=== PATIENT | male | born 1940 ===

== ENCOUNTER 2016-07-15 14:41 | Inpatient (IN) | payer MEDICARE ==
[2016-07-15 15:58] LABS: BASO % 0.8 % (0.0-2.0); EOS # 0.3 K/uL (0.0-0.7); EOS % 4.8 % (0.0-4.0); HEMATOCRIT 21.2 % (35.0-51.0); LYMPH # 0.6 K/uL (1.0-4.3); LYMPH % 10.5 % (20.0-40.0); MEAN CELL VOLUME 92.8 fL (80.0-94.0); MEAN CORPUSCULAR HEMOGLOBIN 30.5 pg (27.0-31.0); MEAN CORPUSCULAR HGB CONC 32.9 g/dL (33.0-37.0); MEAN PLATELET VOLUME 7.5 fL (7.2-11.7); MONO # 0.6 K/uL (0.0-0.8); RED CELL DISTRIBUTION WIDTH 15.9 % (11.5-14.5); WHITE BLOOD COUNT 5.7 K/uL (4.8-10.8)
--- NOTE | 2016-07-15 16:05 | C.PDOC ---
History Of Present Illness 75 year old male presents to the ED after he was sent in by Dr. Comer for labs showing renal failure. Patient states for the past year he has had swelling to his bilateral feet, however it has worsened in the past 10 days. He notes he has an appointment with Dr. Kirk next week however Dr. Comer wanted him to be seen sooner due to the lab results. Denies SOB, chest pain, fever, chills , abdominal pain, calf pain, or any other complaints at this time. Chief Complaint (Nursing): Medical Clearance History Per: Patient History/Exam Limitations: no limitations Onset/Duration Of Symptoms: Days Current Symptoms Are (Timing): Still Present Severity: Mild Past Medical History Reviewed: Historical Data, Nursing Documentation, Vital Signs Vital Signs: Last Vital Signs Temp 97.3 F L 07/15/16 14:50 Pulse 99 H 07/15/16 15:53 Resp 20 07/15/16 15:53 BP 151/77 H 07/15/16 15:53 Pulse Ox 100 07/15/16 17:24 - Medical History PMH: HTN, Hyperlipidemia Family History: States: Unknown Family Hx - Social History Hx Alcohol Use: No Hx Substance Use: No - Immunization History Hx Tetanus Toxoid Vaccination: No Hx Influenza Vaccination: No Hx Pneumococcal Vaccination: No Review Of Systems Except As Marked, All Systems Reviewed And Found Negative. Constitutional: Negative for: Fever, Chills Cardiovascular: Negative for: Chest Pain, Palpitations Respiratory: Negative for: Shortness of Breath Gastrointestinal: Negative for: Vomiting, Abdominal Pain Musculoskeletal: Positive for: Other (+Bilateral leg swelling) Neurological: Negative for: Weakness, Numbness Physical Exam - Physical Exam Appears: Non-toxic, No Acute Distress Skin: Normal Color, Warm, Dry Head: Atraumatic, Normacephalic Eye(s): bilateral: Normal Inspection Oral Mucosa: Moist Chest: Symmetrical, No Deformity Cardiovascular: Rhythm Regular, No Murmur Respiratory: Decreased Breath Sounds (+Decreased breath sounds to bilateral bases), No Accessory Muscle Use, No Rales, No Rhonchi, No Wheezing Gastrointestinal/Abdominal: Soft Extremity: Normal ROM, Pedal Edema (3+ pitting edema), No Calf Tenderness, No Deformity Pulses: Left Dorsalis Pedis: Normal, Right Dorsalis Pedis: Normal Neurological/Psych: Oriented x3, Normal Speech, Normal Cognition ED Course And Treatment - Laboratory Results Result Diagrams: 07/15/16 15:53 07/15/16 15:53 O2 Sat by Pulse Oximetry: 100 (Room air) Pulse Ox Interpretation: Normal - CT Scan/US Renal US Other Rad Studies (CT/US): Read By Radiologist, Radiology Report Reviewed CT/US Interpretation: Accession No. : [id number]. Patient Name / ID : AMERICO KING / [id number]. Exam Date : 07/15/2016 16:26:51 ( Approved ). Study Comment : Sex / Age : M / 75Y. Creator : Monica Baltazar. Dictator : Monica Baltazar. Incident Analyst : Master Merchandiser : Monica Baltazar. Approver2 : Report Date : 07/15/2016 16:51:53. My Comment : . PROCEDURE: Ultrasound of the Kidneys. HISTORY: renal failure. COMPARISON: None available. TECHNIQUE: Sonogram of the kidneys. FINDINGS: RIGHT KIDNEY: Measures: 9.4 x 4.8 x 4.8 cm. The kidneys are echogenic. No stone, solid mass lesion or hydronephrosis visualized. LEFT KIDNEY: Measures: 11.2 x 6.1 x 5.4 cm. The kidneys are echogenic. No stone, solid mass lesion or hydronephrosis visualized. OTHER FINDINGS: None. IMPRESSION: Echogenic kidneys suggestive of medical renal disease. No evidence of hydronephrosis. Progress Note: CXR, EKG, Renal US, Blood work, and Urinalysis ordered and reviewed. Case discussed with Dr. Comer who agreed with plan and admission. Patient found to be severely anemic. Discussed with Dr. Comer who agreed with blood transfusion. Garay placed with 750 cc urine output. Disposition - Disposition Disposition: HOSPITALIZED Disposition Time: 17:22 Condition: GUARDED - Clinical Impression Clinical Impression: Acute renal failure, Obstructive uropathy, Hyperkalemia, Anemia - PA / STATEMENT REQUEST CLERK / Resident Statement /DO has reviewed & agrees with the documentation as recorded. - Scribe Statement The provider has reviewed the documentation as recorded by the Scribe Doron Braun. All medical record entries made by the Scribe were at my direction and personally dictated by me. I have reviewed the chart and agree that the record accurately reflects my personal performance of the history, physical exam, medical decision making, and the department course for this patient. I have also personally directed, reviewed, and agree with the discharge instructions and disposition. Decision To Admit - Pt Status Changed To: Hospital Disposition Of: Inpatient - Admit Certification Admit to Inpatient:: After my assessment, the patient will require hospitalization for at least two midnights. This is because of the severity of symptoms shown, intensity of services needed, and/or the medical risk in this patient being treated as an outpatient. - InPatient: Physician Admission Certification: I certify that this patient requires 2 or more midnights of care for the following reason:: Patient will need more than 2 days of hospitalization for acute renal failure, probably secondary to obstructive uropathy, hyperkalemia, severe anemia. - . Bed Request Type: Telemetry Admitting Physician: Rigo Comer Patient Diagnosis: Acute renal failure, Obstructive uropathy, Hyperkalemia, Anemia
--- NOTE | 2016-07-15 16:13 | RAD ---
PROCEDURE: CHEST RADIOGRAPH, 1 VIEW HISTORY: le edema COMPARISON: None available. FINDINGS: LUNGS: The lungs are well inflated and clear. PLEURA: No pneumothorax or pleural fluid seen. CARDIOVASCULAR: The heart is normal in size. Atherosclerotic aortic arch calcifications are present. . OSSEOUS STRUCTURES: No significant abnormalities. VISUALIZED UPPER ABDOMEN: Normal. OTHER FINDINGS: None. IMPRESSION: No active pulmonary disease.
[2016-07-15 16:14] LABS: CHLORIDE 104 mmol/L (98-107); SODIUM 136 mmol/L (132-148)
[2016-07-15 16:15] LABS: POTASSIUM 6.1 mmol/L (3.6-5.2)
[2016-07-15 16:17] LABS: ALB/GLOB RATIO 1.3 (1.0-2.1); ALKALINE PHOSPHATASE 58 U/L (38-126); ALT/SGPT 12 U/L (21-72); AST/SGOT 19 U/L (17-59); BILIRUBIN,TOTAL < 0.1 mg/dL (0.2-1.3); BLOOD UREA NITROGEN 36 mg/dL (9-20); CARBON DIOXIDE 14 mmol/L (22-30); GFR AFRICAN-AMERICAN 28; GLUCOSE,RANDOM 102 mg/dL (75-110); TOTAL PROTEIN 6.9 g/dL (6.3-8.3)
[2016-07-15 16:18] LABS: CALCIUM 8.7 mg/dl (8.6-10.4)
[2016-07-15] MEDS ORDERED: Sod Polystyrene Sulf 15 gm/60 ml Oral Susp PO STA (16:37)
[2016-07-15] MEDS ORDERED: Sod Polystyrene Sulf 15 gm/60 ml Oral Susp ONE (16:44)
--- NOTE | 2016-07-15 16:53 | US ---
PROCEDURE: Ultrasound of the Kidneys HISTORY: renal failure COMPARISON: None available. TECHNIQUE: Sonogram of the kidneys. FINDINGS: RIGHT KIDNEY: Measures: 9.4 x 4.8 x 4.8 cm. The kidneys are echogenic No stone, solid mass lesion or hydronephrosis visualized. LEFT KIDNEY: Measures: 11.2 x 6.1 x 5.4 cm. The kidneys are echogenic. No stone, solid mass lesion or hydronephrosis visualized. OTHER FINDINGS: None. IMPRESSION: Echogenic kidneys suggestive of medical renal disease. No evidence of hydronephrosis.
[2016-07-15 17:32] LABS: RBC URINE < 1 /hpf (0-3); URINE BACTERIA RARE (<OCC); URINE BILIRUBIN NEGATIVE (NEGATIVE); URINE BLOOD 1+ (NEGATIVE); URINE COLOR Straw (YELLOW); URINE GLUCOSE (UA) NORMAL (Normal); URINE KETONE NEGATIVE (NEGATIVE); URINE LEUKOCYTE ESTERASE NEG Leu/uL (Negative); URINE PROTEIN NEGATIVE (NEGATIVE); URINE UROBILINOGEN NORMAL mg/dL (0.2-1.0); WBC URINE 1 /hpf (0-5)
[2016-07-15 19:40] LABS: INR 0.9
--- NOTE | 2016-07-15 19:56 | HP ---
HISTORY OF PRESENT ILLNESS: This is a 75-year-old gentleman with a history of hypertension and diabe lory, was seen in the office with increasing shortness of breath and edema for past 2 months. About a week ago, patient went to see his primary doctor, Dr. Diego Gonzalez, and was found to have anemia with a hemoglobin of 7.1 grams and creatine jumped to 2.7. Metformin was discontinued and was referred he re. Over the past few days, he has increasing shortness of breath and edema. He is extremely fatigu ed. Going from bed to bathroom, he is out of breath. PERSONAL HISTORY: Does not smoke, does not drink. ALLERGIES: Denied. FAMILY HISTORY: His mother had a history of diabetes, hypertension and CVA. Brother had hypertrophi c cardiomyopathy. MEDICATIONS: At home include Cardizem 240, Flomax 0.4 mg, Lopid 600 mg b.i.d., Vasotec 10 mg 1 a day . REVIEW OF SYSTEMS: GENERAL: Poor exercise tolerance, severe fatigue. No headaches. Dizziness is noted. EYES: No visual disturbances. Has not seen eye doctor. EARS: No hearing loss. NECK: No swollen glands. RESPIRATORY: Negative for cough or hemoptysis. CARDIAC: No chest pains. Shortness of breath at rest and exertion. Increasing edema. History of h ypertension. No palpitations. Sleeps on 2-3 pillows. GASTROINTESTINAL: Negative for abdominal pain, hematemesis or melena. GENITOURINARY: Frequency is noted. He is on Flomax and Proscar. MUSCULOSKELETAL: Back pain, knee pain, and hip pain. PERIPHERAL VASCULAR: Negative for claudication. NEUROLOGIC: Positive for dizziness, but no syncope. PAST MEDICAL HISTORY: Hypertension, diabetes, had a negative Myoview stress test about a year ago an d an echocardiogram showed normal LV systolic function. PHYSICAL EXAMINATION: GENERAL: Shows elderly male who is conscious, alert, in mild respiratory distress and appears pale. He is 5 feet 6 inches and weighs 248 pounds. VITAL SIGNS: His blood pressure is 166/80, heart rate of 88, respiratory rate of 20, afebrile. HEENT: Head is normocephalic. Eyes: No pallor, no icterus. NECK: Supple, no neck vein distention. LUNGS: Clear to auscultation bilaterally. MOUTH: No exudates. HEART: PMI is not localized. S1, S2 is distant, tachycardic. No definite gallops. Grade II-III/ early systolic murmur in mitral area. EXTREMITIES: Shows 3+ edema from the knee down in both legs. Distal pulses could not be felt. ABDOMEN: Soft, nontender. EXTREMITIES: No cyanosis or clubbing. Arthritic changes in both knees. NEUROLOGIC: Awake, alert, oriented x 3. PSYCHIATRIC: No evidence of depression. LABORATORY DATA: Hemoglobin is 7.3, creatinine is 2.7. Chest x-ray was clear. EKG sinus tachycardi a, left axis deviation. ASSESSMENT: A 75-year-old gentleman with a history of probably acute renal failure. Also seems to h ave urinary retention. PLAN: Admit him, nephrology consultation and urology consultation. Care of plan was explained to th e patient's family at the bedside. Rigo Comer MD cc: [id number] TT: 07/15/2016 19:55:19 rn
[2016-07-15] MEDS ORDERED: (Novolin R) Insulin Human Regular 100 units/ml vial SC SCH (22:00)
[2016-07-16 08:07] LABS: POTASSIUM 4.8 mmol/L (3.6-5.2)
[2016-07-16 08:09] LABS: BILIRUBIN,TOTAL 0.1 mg/dL (0.2-1.3)
[2016-07-16 08:10] LABS: ALB/GLOB RATIO 1.3 (1.0-2.1); CALCIUM 8.5 mg/dl (8.6-10.4); TOTAL PROTEIN 6.3 g/dL (6.3-8.3)
[2016-07-16] MEDS: diltiaZEM 240 mg/24 Hours CD Cap PO SCH (09:33)
[2016-07-16] MEDS: (Novolin R) Insulin Human Regular 100 units/ml vial SC SCH ×4 (09:34→22:34)
[2016-07-16 12:21] LABS: EOS # 0.3 K/uL (0.0-0.7); EOS % 6.6 % (0.0-4.0); LYMPH # 0.9 K/uL (1.0-4.3); LYMPH % 19.3 % (20.0-40.0); MEAN CORPUSCULAR HGB CONC 31.9 g/dL (33.0-37.0); MONO # 0.7 K/uL (0.0-0.8); MONO % 13.8 % (0.0-10.0); RED CELL DISTRIBUTION WIDTH 15.9 % (11.5-14.5); WHITE BLOOD COUNT 4.9 K/uL (4.8-10.8)
--- NOTE | 2016-07-16 13:12 | CP.PCM.PN ---
Subjective - Date & Time of Evaluation Date of Evaluation: 07/16/16 Time of Evaluation: 13:10 - Subjective Subjective: better.less sob Objective - Vital Signs/Intake and Output Vital Signs (last 24 hours): Temp Pulse Resp BP Pulse Ox 97.8 F 94 H 18 157/80 H 98 07/16/16 07:02 07/16/16 07:02 07/16/16 07:02 07/16/16 09:35 07/16/16 07:02 Intake and Output: 07/16/16 07/16/16 06:59 18:59 Intake Total 240 Output Total 300 Balance -60 - Medications Medications: Current Medications Diltiazem HCl (Cardizem Cd) 240 mg PO DAILY [facility] Last Admin: 07/16/16 09:33 Dose: 240 mg Finasteride (Proscar) 5 mg PO DAILY [facility] Last Admin: 07/16/16 12:37 Dose: 5 mg Heparin Sodium (Porcine) (Heparin) 5,000 units SC Q12 [facility] Influenza Virus Vaccine (Afluria) 45 mcg IM .ONCE ONE Stop: 07/17/16 10:01 Insulin Human Regular (Novolin R) 0 unit SC [facility] PRN Reason: Protocol Last Admin: 07/16/16 12:36 Dose: Not Given Pneumococcal Polyvalent Vaccine (Pneumovax 23 Vaccine) 0.5 ml IM .ONCE ONE Stop: 07/18/16 10:01 Tamsulosin HCl (Flomax) 0.4 mg PO DAILY [facility] Last Admin: 07/16/16 09:32 Dose: 0.4 mg - Labs Labs: 07/16/16 12:01 07/16/16 06:30 PT 10.2 SECONDS (9.7-12.2) 07/15/16 19:18 INR 0.9 07/15/16 19:18 APTT 30 SECONDS (21-34) 07/15/16 19:18 - Constitutional Appears: No Acute Distress, Chronically Ill - Eye Exam Eye Exam: Normal appearance - ENT Exam ENT Exam: Normal Exam - Respiratory Exam Respiratory Exam: Clear to Ausculation Bilateral - Cardiovascular Exam Cardiovascular Exam: REGULAR RHYTHM - GI/Abdominal Exam GI & Abdominal Exam: Soft - Extremities Exam Extremities Exam: Pedal Edema. absent: Full ROM - Neurological Exam Neurological Exam: Alert, Oriented x3 Assessment and Plan - Assessment and Plan (Free Text) Assessment: acut renal failure,stable.k is normal. renal ultrsasound noted. diss with nephro. will transfuse one more unit.
[2016-07-16 15:08] LABS: PROSTATE SPECIFIC ANTIGEN 1.55 ng/mL (0.00-4.0)
[2016-07-16 15:09] LABS: THYROID STIMULATING HORMONE 0.84 mIU/L (0.46-4.68)
--- NOTE | 2016-07-16 17:27 | CP.PCM.CON ---
History of Present Illness - History of Present Illness History of Present Illness: pt seen and examined, full consult is dictated #[id number] 1. CKD-4 2. anemia, r/o fe deficiency , r/o gi loss 3. htn 4. dm 5.edema , most likely sec to diltiazam chcek 24 hr up,cr,cl, rachele, c3, c4, hept,b,c serology, upep, spep fe,tibc, ferritin,pth intact, po4 consider to d/c diltiazam add hydralazine, losartan add nephrocaps, epogen Past Patient History - Past Medical History & Family History Past Medical History?: Yes - Past Social History Smoking Status: Former Smoker - CARDIAC Hx Cardiac Disorders: No Hx Hypertension: Yes - PULMONARY Other/Comment: former smoker, SOB with exertion - NEUROLOGICAL Hx Neurological Disorder: No - HEENT Hx HEENT Problems: No - ENDOCRINE/METABOLIC Hx Endocrine Disorders: Yes Hx Diabetes Mellitus Type 2: Yes - HEMATOLOGICAL/ONCOLOGICAL Hx Blood Disorders: No - INTEGUMENTARY Hx Dermatological Problems: No - MUSCULOSKELETAL/RHEUMATOLOGICAL Hx Musculoskeletal Disorders: Yes Hx Falls: No Other/Comment: BLE weakness - GASTROINTESTINAL Hx Gastrointestinal Disorders: No - GENITOURINARY/GYNECOLOGICAL Hx Genitourinary Disorders: Yes Other/Comment: BPH - PSYCHIATRIC Hx Psychophysiologic Disorder: No Hx Substance Use: No - SURGICAL HISTORY Hx Surgeries: Yes Hx Appendectomy: Yes Hx Cataract Extraction: Yes Other/Comment: lump removed from left foot - ANESTHESIA Hx Anesthesia: Yes Has any member of the family had a problem w/ anesthesia?: No Meds Allergies/Adverse Reactions: Allergies Allergy/AdvReac Type Severity Reaction Status Date / Time calcium carbonate [From Tums] Allergy Verified 07/15/16 15:29 dates Allergy Uncoded 07/15/16 14:52 - Medications Medications: Current Medications Diltiazem HCl (Cardizem Cd) 240 mg PO DAILY [facility] Last Admin: 07/16/16 09:33 Dose: 240 mg Finasteride (Proscar) 5 mg PO DAILY [facility] Last Admin: 07/16/16 12:37 Dose: 5 mg Heparin Sodium (Porcine) (Heparin) 5,000 units SC Q12 [facility] Influenza Virus Vaccine (Afluria) 45 mcg IM .ONCE ONE Stop: 07/17/16 10:01 Insulin Human Regular (Novolin R) 0 unit SC ACHS [facility] PRN Reason: Protocol Last Admin: 07/16/16 12:36 Dose: Not Given Pneumococcal Polyvalent Vaccine (Pneumovax 23 Vaccine) 0.5 ml IM .ONCE ONE Stop: 07/18/16 10:01 Tamsulosin HCl (Flomax) 0.4 mg PO DAILY [facility] Last Admin: 07/16/16 09:32 Dose: 0.4 mg Results - Vital Signs Recent Vital Signs: Last Vital Signs Temp 98.0 F 07/16/16 17:11 Pulse 86 07/16/16 17:11 Resp 20 07/16/16 17:11 BP 160/82 H 07/16/16 17:11 Pulse Ox 97 07/16/16 15:44 - Labs Result Diagrams: 07/16/16 12:01 07/16/16 06:30 Labs: Laboratory Results - last 24 hr 07/15/16 07/15/16 07/15/16 18:51 19:18 21:19 WBC RBC Hgb Hct MCV MCH MCHC RDW Plt Count MPV Neut % (Auto) Lymph % (Auto) Leon % (Auto) Eos % (Auto) Baso % (Auto) Neut # Lymph # Leon # Eos # Baso # PT 10.2 INR 0.9 APTT 30 Sodium Potassium Chloride Carbon Dioxide Anion Gap BUN Creatinine Est GFR ( Amer) Est GFR (Non-Af Amer) POC Glucose (mg/dL) 124 H Random Glucose Calcium Total Bilirubin AST ALT Alkaline Phosphatase Total Protein Albumin Globulin Albumin/Globulin Ratio Triglycerides Cholesterol LDL Cholesterol Direct HDL Cholesterol Prostate Specific Ag TSH 3rd Generation Ur Random Sodium 58 Ur Random Potassium 22.9 07/16/16 07/16/16 07/16/16 06:15 06:30 11:21 WBC RBC Hgb Hct MCV MCH MCHC RDW Plt Count MPV Neut % (Auto) Lymph % (Auto) Leon % (Auto) Eos % (Auto) Baso % (Auto) Neut # Lymph # Leon # Eos # Baso # PT INR APTT Sodium 137 Potassium 4.8 Chloride 105 Carbon Dioxide 18 L Anion Gap 19 BUN 35 H Creatinine 2.8 H Est GFR ( Amer) 27 Est GFR (Non-Af Amer) 22 POC Glucose (mg/dL) 95 90 Random Glucose 80 Calcium 8.5 L Total Bilirubin 0.1 L AST 20 ALT 19 L D Alkaline Phosphatase 55 Total Protein 6.3 Albumin 3.6 Globulin 2.7 Albumin/Globulin Ratio 1.3 Triglycerides Cholesterol LDL Cholesterol Direct HDL Cholesterol Prostate Specific Ag TSH 3rd Generation Ur Random Sodium Ur Random Potassium 07/16/16 07/16/16 07/16/16 12:01 14:20 16:16 WBC 4.9 RBC 2.42 L Hgb 7.0 L Hct 22.0 L MCV 91.0 MCH 29.0 MCHC 31.9 L RDW 15.9 H Plt Count 303 MPV 8.0 Neut % (Auto) 59.3 Lymph % (Auto) 19.3 L Leon % (Auto) 13.8 H Eos % (Auto) 6.6 H Baso % (Auto) 1.0 Neut # 2.9 Lymph # 0.9 L Leon # 0.7 Eos # 0.3 Baso # 0.0 PT INR APTT Sodium Potassium Chloride Carbon Dioxide Anion Gap BUN Creatinine Est GFR ( Amer) Est GFR (Non-Af Amer) POC Glucose (mg/dL) 111 H Random Glucose Calcium Total Bilirubin AST ALT Alkaline Phosphatase Total Protein Albumin Globulin Albumin/Globulin Ratio Triglycerides 43 Cholesterol 146 LDL Cholesterol Direct 61 HDL Cholesterol 59 Prostate Specific Ag 1.55 TSH 3rd Generation 0.84 Ur Random Sodium Ur Random Potassium
[2016-07-17 06:27] LABS: BASO % 0.6 % (0.0-2.0); EOS # 0.4 K/uL (0.0-0.7); EOS % 5.2 % (0.0-4.0); HEMATOCRIT 28.7 % (35.0-51.0); LYMPH % 14.2 % (20.0-40.0); MEAN CELL VOLUME 89.7 fL (80.0-94.0); MEAN CORPUSCULAR HEMOGLOBIN 29.8 pg (27.0-31.0); MEAN CORPUSCULAR HGB CONC 33.3 g/dL (33.0-37.0); MEAN PLATELET VOLUME 7.9 fL (7.2-11.7); MONO # 0.8 K/uL (0.0-0.8); MONO % 10.9 % (0.0-10.0); RED CELL DISTRIBUTION WIDTH 15.4 % (11.5-14.5)
[2016-07-17 07:19] LABS: CHLORIDE 107 mmol/L (98-107); POTASSIUM 4.5 mmol/L (3.6-5.2); SODIUM 139 mmol/L (132-148)
[2016-07-17 07:21] LABS: GFR AFRICAN-AMERICAN 29
[2016-07-17 07:22] LABS: ALB/GLOB RATIO 1.1 (1.0-2.1); ALKALINE PHOSPHATASE 61 U/L (38-126); ALT/SGPT 25 U/L (21-72); AST/SGOT 26 U/L (17-59); BILIRUBIN,TOTAL 0.2 mg/dL (0.2-1.3); BLOOD UREA NITROGEN 38 mg/dL (9-20); CARBON DIOXIDE 18 mmol/L (22-30); GLUCOSE,RANDOM 84 mg/dL (75-110)
[2016-07-17 07:23] LABS: CALCIUM 8.6 mg/dl (8.6-10.4)
[2016-07-17 07:40] LABS: IRON 62 ug/dL (49-181)
--- NOTE | 2016-07-17 08:55 | CON ---
DATE: 07/16/2016 The patient is located in room 651, bed A. REQUESTING PHYSICIAN: Dr. Rigo Comer REASON FOR RENAL CONSULTATION: Chronic kidney disease, anemia, for further evaluation. The patient is a 75-year-old, obese, elderly male with a past medical history significant for hyperte nsion for about 20 years, diabetes for 10-15 years, hyperlipidemia and BPH, who was admitted with chi ef complaints of bilateral lower extremity swelling and also low H and H and abnormal BUN and creatin ine, worsening from the baseline. The patient denies any chest pain, palpitations. The patient does complain of weakness and dyspnea on exertion. Denies any dysuria. The patient does complain of andrews quency and nocturia. The patient gets up 4-5 times at bedtime. The patient does complain of swellin g of the legs for the last at least 1 week to 2 weeks. PAST MEDICAL HISTORY: Significant for hypertension for 20 years, diabetes for 10-15 years and hyperl ipidemia. PAST SURGICAL HISTORY: Appendectomy in 1973 and bilateral cataract surgery about 3-4 years ago and r emoval of the lipoma from the left leg. ALLERGIES: ALLERGIC TO TUMS AND ALSO DATES. SOCIAL HISTORY: The patient was an ex-smoker, used to smoke a half a pack. Initially, when he was t een, he used to smoke 1-2 cigarettes per day. Later on, used to smoke a half pack per day for at [address] 30 years. Alcohol use, quit about 30 years ago. No drug abuse. PERSONAL HISTORY: He is and he has 4 children. HOME MEDICATIONS: Include enalapril and Lopid, Proscar, Flomax and diltiazem. CURRENT MEDICATIONS IN THE HOSPITAL: Include as follows, influenza flu vaccine 07/2016, diltiazem 240 mg p.o. daily, Flomax 0.4 mg p.o. daily, subcutaneous heparin 5000 q. 12 hours, insulin for sliding scale, pneumococcal vaccine x 1, Proscar 5 mg p.o. daily. REVIEW OF SYSTEMS: Significant for bilateral lower extremity swelling, weakness, and also significan t for anemia and generalized weakness and nocturia. All other systems reviewed and are negative. PHYSICAL EXAMINATION: GENERAL: The patient is a 75-year-old, elderly, obese male, moderately built, moderately nourished, not in any distress. HEENT: Pupils normal, reactive to light and accommodation. Conjunctivae pale. Sclerae anicteric. Tongue is moist. NECK: Trachea midline. LUNGS: Symmetric on both sides. Bilateral breath sounds present. Clear to auscultation. CARDIOVASCULAR: [place] in the fifth intercostal space, midclavicular line. S1 and S2 audible. No mur mur, no gallop. ABDOMEN: Normal in appearance, soft, tympanic. No guarding, no rigidity. No hepatosplenomegaly. CENTRAL NERVOUS SYSTEM: The patient is alert, awake, oriented x 3, nonfocal on examination. Cranial nerves II-XII grossly intact. Sensory and motor system is within normal limits. EXTREMITIES: No cyanosis, no clubbing. The patient has 2+ edema in both lower extremities. LABORATORY DATA: Include as follows, as of 07/16/2016, WBC 4.9, hemoglobin 7, hematocrit is 22, plate lets 303. Sodium 137, potassium 4.8, chloride 105, CO2 18, BUN 35, creatinine 2.8, glucose 80, calci um 8.5, total bilirubin 0.1, AST 20, ALT 19, alkaline phosphatase 55, total protein 6.3, albumin is 2 .7. Triglycerides , cholesterol 146, LDL 61, HDL 59. PSA 1.55. TSH is 0.84. Other laboratory data as of 07/15/2016, sodium 136, potassium 6.1, chloride 104, CO2 14, BUN 36, creatinine 2.7, gluco se 102, calcium 8.7. Urinalysis as of 07/15/2016, straw colored, clear, pH 5, specific gravity 1.005, protein negative, glucose negative, ketones negative, blood 1+, nitrites negative, bilirubin negativ e, urobilinogen normal, leukocyte esterase negative, WBC 1, RBC less than 1, bacteria rare, urine sod ium , urine potassium is 22.9. OTHER REPORTS: Ultrasound of the kidneys as of 07/15/2016, right kidney 9.4 cm x 4.8 cm x 4.8 cm, lef t kidney 11.2 cm x 6.1 cm x 5.4 cm. Kidneys are echogenic. Impression: Echogenic kidneys suggestiv e of medical renal disease, no evidence of hydronephrosis. Chest x-ray as of 07/15/2016, no active pu lmonary disease. SUMMARY: The patient is a 75-year-old elderly male with a history of hypertension, diabetes, history of arthritis, low back pain, on nonsteroids for almost 10 years. He quit about 2-3 years ago, was a dmitted with low H and H and weakness and increased BUN and creatinine, bilateral leg swelling and no cturia. 1. Chronic kidney disease stage IV, rule out hypertensive nephrosclerosis versus diabetic nephropath y. Cannot rule out a combination also. 2. Anemia, secondary to chronic kidney disease, rule out iron deficiency anemia, rule out gastrointe stinal bleed. 3. Bilateral lower extremity edema, most likely secondary to Cardizem. Consider to discontinue Card izem and add hydralazine 50 mg q. 8 hours. We will also check iron, TIBC, ferritin level, PTH intact level and C3, C4, JEWELL, hepatitis B and C serology and we will check 24-hour urine protein and creati nine clearance. We will follow with you. Thank you for allowing me to participate in your patient's care. We will also check UPEP and SPEP. Emir Kirk MD cc: [phone] TT: 07/17/2016 08:54:33 Confirmation # [id number] Dictation # [id number] en
[2016-07-17] MEDS: Multivitamin Vitamin B Complex (Nephro-Vite) Tab PO SCH (09:53)
[2016-07-17] MEDS: (Novolin R) Insulin Human Regular 100 units/ml vial SC SCH ×4 (09:53→22:02)
[2016-07-17] MEDS: diltiaZEM 240 mg/24 Hours CD Cap PO SCH (09:53)
[2016-07-17] MEDS ORDERED: Influenza Virus Vaccine 45 mcg/0.5 ml Syr IM ONE (10:00)
[2016-07-17 10:26] LABS: CHLORIDE URINE 71 mmol/L (32-290)
[2016-07-17] MEDS: Pantoprazole 40 mg EC Tab PO SCH (16:13)
--- NOTE | 2016-07-17 19:06 | CP.PCM.PN ---
Subjective - Date & Time of Evaluation Date of Evaluation: 07/17/16 Time of Evaluation: 19:06 - Subjective Subjective: pt sen and examined, follow up consult is dictated #[id number] Objective - Vital Signs/Intake and Output Vital Signs (last 24 hours): Temp Pulse Resp BP Pulse Ox 98 F 84 20 158/81 H 97 07/17/16 15:32 07/17/16 16:49 07/17/16 15:32 07/17/16 15:32 07/17/16 15:32 Intake and Output: 07/17/16 07/18/16 18:59 06:59 Intake Total 240 Output Total 500 Balance -260 - Medications Medications: Current Medications Diltiazem HCl (Cardizem Cd) 240 mg PO DAILY [facility] Last Admin: 07/17/16 09:53 Dose: 240 mg Epoetin Kyle (Procrit) 10,000 unit SC [facility]WF [facility] Finasteride (Proscar) 5 mg PO DAILY [facility] Last Admin: 07/17/16 12:07 Dose: 5 mg Heparin Sodium (Porcine) (Heparin) 5,000 units SC Q12 [facility] Insulin Human Regular (Novolin R) 0 unit SC A[facility]S [facility] PRN Reason: Protocol Last Admin: 07/17/16 16:30 Dose: Not Given Pantoprazole Sodium (Protonix Ec Tab) 40 mg PO DAILY [facility] Last Admin: 07/17/16 16:13 Dose: 40 mg Pneumococcal Polyvalent Vaccine (Pneumovax 23 Vaccine) 0.5 ml IM .ONCE ONE Stop: 07/18/16 10:01 Tamsulosin HCl (Flomax) 0.4 mg PO DAILY [facility] Last Admin: 07/17/16 09:53 Dose: 0.4 mg Vitamin B Complex/Vit C/Folic Acid (Nephro-Portia) 1 tab PO DAILY [facility] Last Admin: 07/17/16 09:53 Dose: 1 tab - Labs Labs: 07/17/16 06:15 07/17/16 06:15 PT 10.2 SECONDS (9.7-12.2) 07/15/16 19:18 INR 0.9 07/15/16 19:18 APTT 30 SECONDS (21-34) 07/15/16 19:18
--- NOTE | 2016-07-17 22:59 | PN ---
DATE: 07/17/2016 The patient is located in room 651, bed A. REQUESTED BY: Dr. Rigo Comer. REASON FOR FOLLOWUP: Chronic kidney disease and anemia for further evaluation. HISTORY OF PRESENT ILLNESS: The patient is a 75-year-old elderly obese male with a history of longstanding diabetes, hypertension, chronic kidney disease, back pain, osteoarthritis, was on nonst eroids for about 10 years, off the last 2-3 years, with a baseline creatinine about a year ago was 1. 7, who was admitted with the chief complaints of difficult to ambulate and also worsening renal funct ion, and low H and H. The patient received 2 units of packed RBCs during his hospital stay. The pat ient denies any headache, dizziness. Denies any chest pain, palpitations. The patient does complain of pain in the legs and also swelling of the legs. Denies any chest pain, palpitation. The patient does complain of weakness and difficult to ambulate. PHYSICAL EXAMINATION: VITAL SIGNS: As follows: Blood pressure 158/81, pulse 84, respirations 20, temperature 98, saturati on 97%, height 5 feet 7 inches and weight is 238 pounds, BMI 37.3. GENERAL: The patient is a 75-year-old obese male, well built, well nourished, not in distress. HEENT: Pupils normal, reactive to light and accommodation. Conjunctivae pink. Sclerae anicteric. Tongue is moist. NECK: Trachea midline. LUNGS: Symmetric on both sides. Bilateral breath sounds present. Clear on auscultation. CARDIOVASCULAR: [place] in the fifth intercostal space midclavicular line. S1 and S2 audible. No murm ur or gallop. ABDOMEN: Normal in appearance, protuberant, soft, tympanic. No guarding, no rigidity. No hepatospl enomegaly. CENTRAL NERVOUS SYSTEM: The patient is alert, awake, oriented x 3, nonfocal on examination. Cranial nerves II through XII grossly intact. Sensory and motor system is within normal limits. EXTREMITIES: No cyanosis, no clubbing. The patient has 1-2+ edema in both lower extremities. CURRENT MEDICATIONS: Include Cardizem CD 240 mg p.o. daily, Flomax 0.4 mg daily, subQ heparin 5000 q . 12 hours, Nephro-Portia 1 tablet daily. Procrit 10,000 units subQ 3 times a week. Proscar 5 mg p.o. daily, Protonix 40 mg p.o. daily. LABORATORY DATA: Include as follows: As of 07/17/2016, WBC 7, hemoglobin 9.5, hematocrit is 28.7, p latelets 341. Sodium 139, potassium 4.5, chloride 107, CO2 of 18, BUN 38, creatinine 2.6, and glucos e 98. Calcium 8.6. Iron is 62, TIBC is 402. Saturation 15, ferritin is 9.6, and total bilirubin 0. 2, AST 26, ALT 25, alkaline phosphatase 61, total protein is 7, albumin is 3.7. C3 is 114 and C4 is 34.5. Hepatitis B surface antigen negative, hep C antibody is negative. SUMMARY: The patient is a 75-year-old elderly obese male with hypertension, diabetes, hyperlipidemia , chronic kidney disease, osteoarthritis and low back pain, was on nonsteroids for about 10 years. 1. Renal failure, most likely chronic kidney disease stage IV, rule out hypertensive nephrosclerosis versus diabetic nephropathy, rule out chronic glomerulonephritis. 2. Anemia secondary to renal failure and also iron deficiency anemia. 3. Hypertension. 4. Diabetes. 5. Edema of the legs, most likely secondary to medication of Cardizem. We will consider to change i t to hydralazine. We will discuss with Dr. Rigo Comer tomorrow and also we will start him on IV iro n and continue Epogen. We will follow with you. Thank you for allowing me to participate in your patient's care. Emir Kirk MD cc: [id number] TT: 07/17/2016 22:58:48 Confirmation # [id number] Dictation # [id number]
[2016-07-18 08:02] VITALS: O2SAT 98
[2016-07-18] MEDS: (Novolin R) Insulin Human Regular 100 units/ml vial SC SCH ×4 (08:30→22:01)
[2016-07-18] MEDS ORDERED: Epoetin Alfa 10,000 unit/ml Dialysis SC SCH (09:00)
[2016-07-18] MEDS: diltiaZEM 240 mg/24 Hours CD Cap PO SCH (09:42)
[2016-07-18] MEDS: Multivitamin Vitamin B Complex (Nephro-Vite) Tab PO SCH (09:42)
[2016-07-18] MEDS ORDERED: Pneumococcal 23-Valent Vaccine IM ONE (10:00)
[2016-07-18 10:27] LABS: HEMATOCRIT 28.2 % (38.5-50.0); HEMOGLOBIN 9.3 g/dL (13.2-17.1); RDW 16.3 % (11.0-15.0)
[2016-07-18] MEDS: Pantoprazole 40 mg EC Tab PO SCH (11:00)
[2016-07-18 12:08] LABS: TOTAL PROTEIN, SERUM 6.4 g/dL (6.1-8.1)
--- NOTE | 2016-07-18 15:10 | CP.PCM.PN ---
Subjective - Date & Time of Evaluation Date of Evaluation: 07/18/16 Time of Evaluation: 15:08 - Subjective Subjective: edema,gout lt foot. Objective - Vital Signs/Intake and Output Vital Signs (last 24 hours): Temp Pulse Resp BP Pulse Ox 97.6 F 81 18 157/79 H 98 07/18/16 07:02 07/18/16 13:20 07/18/16 07:02 07/18/16 13:20 07/18/16 07:02 Intake and Output: 07/18/16 07/18/16 06:59 18:59 Intake Total 420 Output Total 400 Balance 20 - Medications Medications: Current Medications Colchicine (Colocrys) 0.6 mg PO ONCE ONE Stop: 07/18/16 14:53 Colchicine (Colocrys) 0.6 mg PO QID [facility] Epoetin Kyle (Procrit) 10,000 unit SC MWF [facility] Last Admin: 07/18/16 09:32 Dose: 10,000 unit Finasteride (Proscar) 5 mg PO DAILY [facility] Last Admin: 07/18/16 11:00 Dose: 5 mg Heparin Sodium (Porcine) (Heparin) 5,000 units SC Q12 [facility] Hydralazine HCl (Apresoline) 25 mg PO TID [facility] Insulin Human Regular (Novolin R) 0 unit SC ACHS [facility] PRN Reason: Protocol Last Admin: 07/18/16 12:30 Dose: Not Given Pantoprazole Sodium (Protonix Ec Tab) 40 mg PO DAILY [facility] Last Admin: 07/18/16 11:00 Dose: 40 mg Tamsulosin HCl (Flomax) 0.4 mg PO DAILY [facility] Last Admin: 07/18/16 09:42 Dose: 0.4 mg Vitamin B Complex/Vit C/Folic Acid (Nephro-Portia) 1 tab PO DAILY [facility] Last Admin: 07/18/16 09:42 Dose: 1 tab - Labs Labs: 07/17/16 06:15 07/17/16 06:15 PT 10.2 SECONDS (9.7-12.2) 07/15/16 19:18 INR 0.9 07/15/16 19:18 APTT 30 SECONDS (21-34) 07/15/16 19:18 - Constitutional Appears: No Acute Distress - Eye Exam Eye Exam: Normal appearance - ENT Exam ENT Exam: Mucous Membranes Moist - Respiratory Exam Respiratory Exam: Clear to Ausculation Bilateral - Cardiovascular Exam Cardiovascular Exam: REGULAR RHYTHM - GI/Abdominal Exam GI & Abdominal Exam: Soft Assessment and Plan - Assessment and Plan (Free Text) Assessment: need rx for gout..rehab
--- NOTE | 2016-07-18 15:23 | CARD ---
APPROVED REPORT EKG Measurement Heart [id number] 232P [id number] <Conclusion> Sinus tachycardia with 1st degree AV block with premature atrial complexes Otherwise normal ECG
[2016-07-18 15:47] VITALS: RESP 20
--- NOTE | 2016-07-18 20:43 | CP.PCM.PN ---
Subjective - Date & Time of Evaluation Date of Evaluation: 07/18/16 Time of Evaluation: 20:42 - Subjective Subjective: pt seen and examined, follow up consult is dictated #[id number] Objective - Vital Signs/Intake and Output Vital Signs (last 24 hours): Temp Pulse Resp BP Pulse Ox 98.2 F 86 20 151/70 H 98 07/18/16 15:00 07/18/16 16:38 07/18/16 15:00 07/18/16 15:00 07/18/16 15:00 Intake and Output: 07/18/16 07/19/16 18:59 06:59 Intake Total 300 Balance 300 - Medications Medications: Current Medications Colchicine (Colocrys) 0.6 mg PO QID [facility] Last Admin: 07/18/16 18:36 Dose: 0.6 mg Epoetin Kyle (Procrit) 10,000 unit SC MWF [facility] Last Admin: 07/18/16 09:32 Dose: 10,000 unit Finasteride (Proscar) 5 mg PO DAILY [facility] Last Admin: 07/18/16 11:00 Dose: 5 mg Heparin Sodium (Porcine) (Heparin) 5,000 units SC Q12 [facility] Hydralazine HCl (Apresoline) 25 mg PO TID [facility] Last Admin: 07/18/16 18:36 Dose: 25 mg Insulin Human Regular (Novolin R) 0 unit SC ACHS [facility] PRN Reason: Protocol Last Admin: 07/18/16 18:25 Dose: Not Given Pantoprazole Sodium (Protonix Ec Tab) 40 mg PO DAILY [facility] Last Admin: 07/18/16 11:00 Dose: 40 mg Tamsulosin HCl (Flomax) 0.4 mg PO DAILY [facility] Last Admin: 07/18/16 09:42 Dose: 0.4 mg Vitamin B Complex/Vit C/Folic Acid (Nephro-Portia) 1 tab PO DAILY [facility] Last Admin: 07/18/16 09:42 Dose: 1 tab - Labs Labs: 07/17/16 06:15 07/17/16 06:15 PT 10.2 SECONDS (9.7-12.2) 07/15/16 19:18 INR 0.9 07/15/16 19:18 APTT 30 SECONDS (21-34) 07/15/16 19:18
--- NOTE | 2016-07-18 21:29 | PN ---
DATE: 07/18/2016 The patient is located in room 651, bed A. HISTORY OF PRESENT ILLNESS: The patient is a 75-year-old obese elderly [place] male with a past medic al history significant for hypertension, diabetes, hyperlipidemia, low back pain, osteoarthritis and BPH, questionable gout, was admitted with chief complaints of bilateral lower extremity swelling and weakness and found to have increased BUN and creatinine and low H and H, status post transfusion of 2 units packed RBC. The patient still complains of swelling in both lower extremities and also slight redness and pain of the right big toe. PHYSICAL EXAMINATION: VITAL SIGNS: As follows; as of 07/18/2016 blood pressure 151/70, pulse 77, respiration 20, temperature 98.2, saturation 98%. Height 5 feet 7 inches and weight is 234 pounds. GENERAL: The patient is a 75-year-old elderly male, obese, not in distress. HEENT: Pupils normal, reactive to light and accommodation. Conjunctivae pink. Sclerae anicteric. Tongue is moist. NECK: Trachea is midline. LUNGS: Symmetric on both sides. Bilateral breath sounds present. Clear on auscultation. CARDIOVASCULAR: [place] in the fifth intercostal space midclavicular line. S1 and S2 audible. No murm ur or gallop. ABDOMEN: Normal in appearance, soft, tympanic. No guarding, no rigidity. No hepatosplenomegaly. CENTRAL NERVOUS SYSTEM: The patient is alert, awake, oriented x 3, nonfocal on examination. Cranial nerves II through XII grossly intact. Sensory and motor system is within normal limits. EXTREMITIES: No cyanosis, no clubbing. The patient has a slight redness of the feet and also the pa tient ____ extremities. CURRENT MEDICATIONS: Include as follows: Hydralazine 25 mg p.o. t.i.d., colchicine 0.6 mg p.o. q.i. d., Flomax 0.4 mg q. daily and subcutaneous heparin ____ q. 12 hours, Nephro-Portia 1 tablet daily, Nov ama R for sliding scale, Epogen 10,000 units subQ 3 times a week, Monday, Monday, Monday and Pros car 5 mg p.o. daily, Protonix 40 mg p.o. daily, diltiazem was discontinued. CURRENT MEDICATIONS: Include uric acid level is 7.3 as of 07/18/2016, and Accu-Cheks 125, 117 and 111. Hemoglobin electrophoresis is pending. JEWELL is negative. C3 and C4 is negative and hepatitis B and C serology was negative. SUMMARY: In summary, the patient is a 75-year-old elderly male with a past medical history significa nt for long-standing hypertension, diabetes, osteoarthritis, low back pain, benign prostatic hypertro phy, was admitted with low hemoglobin and hematocrit and increased BUN and creatinine. 1. Chronic kidney disease stage IV, etiology is not clear. His basic serological workup is within n ormal limits, rule out diabetic nephropathy versus hypertensive nephrosclerosis versus secondary to a nalgesics. We will check a 24-hour urine protein, creatinine and creatinine clearance. 2. Anemia secondary to chronic kidney disease, cannot rule out iron deficiency anemia with low refugio tin level. We will start Venofer and also continue Epogen and Nephrocaps. 3. Hypertension. Agree to change Cardizem to hydralazine for possible swelling of the legs due to C ardizem. 4. Morbidly obese. 5. Rule out acute gouty arthritis. Continue colchicine. We will follow with you. Thank you for allowing me to participate in your patient's care. Emir Kirk MD cc: [id number] TT: 07/18/2016 21:28:40 Confirmation # [id number] Dictation # [id number]
--- NOTE | 2016-07-18 23:32 | CP.PCM.CON ---
History of Present Illness - History of Present Illness History of Present Illness: cc: renal failure obstructive uropathy Hx of bph Past Patient History - Past Medical History & Family History Past Medical History?: Yes - Past Social History Smoking Status: Former Smoker - CARDIAC Hx Hypertension: Yes - PULMONARY Other/Comment: former smoker, SOB with exertion - NEUROLOGICAL Hx Neurological Disorder: No - HEENT Hx HEENT Problems: No - ENDOCRINE/METABOLIC Hx Endocrine Disorders: Yes Hx Diabetes Mellitus Type 2: Yes - HEMATOLOGICAL/ONCOLOGICAL Hx Blood Disorders: No - INTEGUMENTARY Hx Dermatological Problems: No - MUSCULOSKELETAL/RHEUMATOLOGICAL Hx Musculoskeletal Disorders: Yes Hx Falls: No Other/Comment: BLE weakness - GASTROINTESTINAL Hx Gastrointestinal Disorders: No - GENITOURINARY/GYNECOLOGICAL Hx Genitourinary Disorders: Yes Other/Comment: BPH - PSYCHIATRIC Hx Psychophysiologic Disorder: No Hx Substance Use: No - SURGICAL HISTORY Hx Surgeries: Yes Hx Appendectomy: Yes Hx Cataract Extraction: Yes Other/Comment: lump removed from left foot - ANESTHESIA Hx Anesthesia: Yes Has any member of the family had a problem w/ anesthesia?: No Meds Allergies/Adverse Reactions: Allergies Allergy/AdvReac Type Severity Reaction Status Date / Time calcium carbonate [From Tums] Allergy Verified 07/15/16 15:29 dates Allergy Uncoded 07/15/16 14:52 - Medications Medications: Current Medications Colchicine (Colocrys) 0.6 mg PO QID [facility] Last Admin: 07/18/16 21:56 Dose: 0.6 mg Epoetin Kyle (Procrit) 10,000 unit SC MWF [facility] Last Admin: 07/18/16 09:32 Dose: 10,000 unit Finasteride (Proscar) 5 mg PO DAILY [facility] Last Admin: 07/18/16 11:00 Dose: 5 mg Heparin Sodium (Porcine) (Heparin) 5,000 units SC Q12 [facility] Hydralazine HCl (Apresoline) 25 mg PO TID [facility] Last Admin: 07/18/16 18:36 Dose: 25 mg Insulin Human Regular (Novolin R) 0 unit SC ACHS [facility] PRN Reason: Protocol Last Admin: 07/18/16 22:01 Dose: Not Given Pantoprazole Sodium (Protonix Ec Tab) 40 mg PO DAILY [facility] Last Admin: 07/18/16 11:00 Dose: 40 mg Tamsulosin HCl (Flomax) 0.4 mg PO DAILY [facility] Last Admin: 07/18/16 09:42 Dose: 0.4 mg Vitamin B Complex/Vit C/Folic Acid (Nephro-Portia) 1 tab PO DAILY [facility] Last Admin: 07/18/16 09:42 Dose: 1 tab Results - Vital Signs Recent Vital Signs: Last Vital Signs Temp 98.2 F 07/18/16 15:00 Pulse 86 07/18/16 16:38 Resp 20 07/18/16 15:00 BP 151/70 H 07/18/16 15:00 Pulse Ox 98 07/18/16 15:00 - Labs Result Diagrams: 07/17/16 06:15 07/17/16 06:15 Labs: Laboratory Results - last 24 hr 07/16/16 07/16/16 07/17/16 06:30 14:20 06:15 Hemoglobinopathy Red Blood Count 3.08 L Hemoglobinopathy Hct 28.2 L Hemoglobinopathy Hgb 9.3 L Hemoglobinopathy MCV 91.5 Hemoglobinopathy MCH 30.1 Hemoglobinopathy RDW 16.3 H POC Glucose (mg/dL) Hemoglobin A1c 5.2 Uric Acid Total Protein (PEP) 6.4 PTH Intact Whole Molec 130 H JEWELL 6 Profile Negative Hep Bs Antibody Negative 07/18/16 07/18/16 07/18/16 06:19 11:52 16:21 Hemoglobinopathy Red Blood Count Hemoglobinopathy Hct Hemoglobinopathy Hgb Hemoglobinopathy MCV Hemoglobinopathy MCH Hemoglobinopathy RDW POC Glucose (mg/dL) 125 H 117 H 111 H Hemoglobin A1c Uric Acid Total Protein (PEP) PTH Intact Whole Molec JEWELL 6 Profile Hep Bs Antibody 07/18/16 07/18/16 17:11 21:04 Hemoglobinopathy Red Blood Count Hemoglobinopathy Hct Hemoglobinopathy Hgb Hemoglobinopathy MCV Hemoglobinopathy MCH Hemoglobinopathy RDW POC Glucose (mg/dL) 105 Hemoglobin A1c Uric Acid 7.3 Total Protein (PEP) PTH Intact Whole Molec JEWELL 6 Profile Hep Bs Antibody Assessment & Plan - Assessment and Plan (Free Text) Assessment: IMP: BPH VOIDING SX RENAL INSUFFICIENCY ANEMIA HX OF HYPERTENSION DIABETES Plan: FULL NOTE TO BE DICTATED - Date & Time Date: 07/18/16 Time: 10:50
[2016-07-19] MEDS: (Novolin R) Insulin Human Regular 100 units/ml vial SC SCH ×3 (07:53→17:00)
[2016-07-19 10:19] LABS: BETA 1 GLOBULIN 0.6 g/dL (0.4-0.6); BETA 2 GLOBULIN 0.4 g/dL (0.2-0.5); GAMMA GLOBULIN 0.7 g/dL (0.8-1.7)
[2016-07-19] MEDS: Multivitamin Vitamin B Complex (Nephro-Vite) Tab PO SCH (10:41)
[2016-07-19] MEDS: Pantoprazole 40 mg EC Tab PO SCH (10:41)
--- NOTE | 2016-07-19 11:52 | CP.PCM.PN ---
Subjective - Date & Time of Evaluation Date of Evaluation: 07/19/16 Time of Evaluation: 11:49 - Subjective Subjective: PT SEEN AND EXAMINED BY DR HIREN TAPIA TODAY, PT D[place] [facility] [place], MED REC DONE PER DR TAPIA, PT DENIES ANY PAIN, SOB, RESP EASY AND UNLABORED. NAD, EDUCATED TO F/U W/ DR TAPIA IN ONE WEEK, F/U WITH DR BECERRA IN THE OFFICE IN ONE WEEK, F/U W. DR JAMES AND DR DAHIANA TAPIA IN ONE WEEK, PLEASE PLACE UNDER THE SERVICES OF DR. KARINE TAPIA WHILE AT [facility] [place] CALL UPON ARRIVAL WITH BED ASSIGNMENT AND FOR ADMITTING ORDER, CALL DR HIREN TAPIA OFFICE IF ANY FURTHER QUESTIONS Objective - Vital Signs/Intake and Output Vital Signs (last 24 hours): Temp Pulse Resp BP Pulse Ox 98.1 F 90 20 167/76 H 98 07/19/16 07:02 07/19/16 07:02 07/19/16 07:02 07/19/16 07:02 07/19/16 07:02 - Medications Medications: Current Medications Colchicine (Colocrys) 0.6 mg PO QID [facility] Last Admin: 07/19/16 10:41 Dose: 0.6 mg Epoetin Kyle (Procrit) 10,000 unit SC MWF [facility] Last Admin: 07/18/16 09:32 Dose: 10,000 unit Finasteride (Proscar) 5 mg PO DAILY [facility] Last Admin: 07/18/16 11:00 Dose: 5 mg Hydralazine HCl (Apresoline) 25 mg PO TID [facility] Last Admin: 07/19/16 10:41 Dose: 25 mg Insulin Human Regular (Novolin R) 0 unit SC ACHS [facility] PRN Reason: Protocol Last Admin: 07/19/16 07:53 Dose: Not Given Pantoprazole Sodium (Protonix Ec Tab) 40 mg PO DAILY [facility] Last Admin: 07/19/16 10:41 Dose: 40 mg Tamsulosin HCl (Flomax) 0.4 mg PO DAILY [facility] Last Admin: 07/19/16 10:41 Dose: 0.4 mg Vitamin B Complex/Vit C/Folic Acid (Nephro-Portia) 1 tab PO DAILY [facility] Last Admin: 07/19/16 10:41 Dose: 1 tab - Labs Labs: 07/17/16 06:15 04/02/17 06:15 PT 10.2 SECONDS (9.7-12.2) 07/15/16 19:18 INR 0.9 07/15/16 19:18 APTT 30 SECONDS (21-34) 07/15/16 19:18
--- NOTE | 2016-07-19 11:57 | CP.PCM.CON ---
<Nader Miles - Last Filed: 07/19/16 11:53> History of Present Illness - History of Present Illness History of Present Illness: POD CONSULT NOTE 75 y/o male seen at bedside for b/l LE edema with elongated nails. Patient is with at [facility]. Patient states that he presented because he noticed alot of swelling in his feet and it was found whil admitted that he had increased Cr. Patient states that he has alos had a history of gout and that on his right big toe he is having the same symptoms he used to have with his gouty attacks. Patient states that he follows up with a pod in [place] as well but would like his nail trimmed today. Denies any further complaints. Denies any f/c /n/b/sob. Past Patient History - Past Medical History & Family History Past Medical History?: Yes - Past Social History Smoking Status: Former Smoker - CARDIAC Hx Hypertension: Yes - PULMONARY Other/Comment: former smoker, SOB with exertion - NEUROLOGICAL Hx Neurological Disorder: No - HEENT Hx HEENT Problems: No - ENDOCRINE/METABOLIC Hx Endocrine Disorders: Yes Hx Diabetes Mellitus Type 2: Yes - HEMATOLOGICAL/ONCOLOGICAL Hx Blood Disorders: No - INTEGUMENTARY Hx Dermatological Problems: No - MUSCULOSKELETAL/RHEUMATOLOGICAL Hx Musculoskeletal Disorders: Yes Hx Falls: No Other/Comment: BLE weakness - GASTROINTESTINAL Hx Gastrointestinal Disorders: No - GENITOURINARY/GYNECOLOGICAL Hx Genitourinary Disorders: Yes Other/Comment: BPH - PSYCHIATRIC Hx Psychophysiologic Disorder: No Hx Substance Use: No - SURGICAL HISTORY Hx Surgeries: Yes Hx Appendectomy: Yes Hx Cataract Extraction: Yes Other/Comment: lump removed from left foot - ANESTHESIA Hx Anesthesia: Yes Has any member of the family had a problem w/ anesthesia?: No Meds Home Medications: Home Medication List Medication Instructions Recorded Confirmed Type Colchicine 0.6 mg PO BID #60 tablet 07/19/16 Rx Furosemide [Lasix] 20 mg PO DAILY #30 tablet 07/19/16 Rx hydrALAZINE [Apresoline] 25 mg PO TID tab 07/19/16 Rx Allergies/Adverse Reactions: Allergies Allergy/AdvReac Type Severity Reaction Status Date / Time calcium carbonate [From Tums] Allergy Verified 07/15/16 15:29 dates Allergy Uncoded 07/15/16 14:52 - Medications Medications: Current Medications Colchicine (Colocrys) 0.6 mg PO QID [facility] Last Admin: 07/19/16 10:41 Dose: 0.6 mg Epoetin Kyle (Procrit) 10,000 unit SC MWF [facility] Last Admin: 07/18/16 09:32 Dose: 10,000 unit Finasteride (Proscar) 5 mg PO DAILY [facility] Last Admin: 07/18/16 11:00 Dose: 5 mg Hydralazine HCl (Apresoline) 25 mg PO TID [facility] Last Admin: 07/19/16 10:41 Dose: 25 mg Insulin Human Regular (Novolin R) 0 unit SC ACHS [facility] PRN Reason: Protocol Last Admin: 07/19/16 07:53 Dose: Not Given Pantoprazole Sodium (Protonix Ec Tab) 40 mg PO DAILY [facility] Last Admin: 07/19/16 10:41 Dose: 40 mg Tamsulosin HCl (Flomax) 0.4 mg PO DAILY [facility] Last Admin: 07/19/16 10:41 Dose: 0.4 mg Vitamin B Complex/Vit C/Folic Acid (Nephro-Portia) 1 tab PO DAILY [facility] Last Admin: 07/19/16 10:41 Dose: 1 tab Physical Exam - Constitutional Appears: Well, Non-toxic, Toxic - Neurological Exam Neurological exam: Alert, Oriented x3 - Psychiatric Exam Psychiatric exam: Normal Affect, Normal Mood - Skin Skin Exam: Intact, Normal Color, Warm - Additional Findings Additional findings: Vasc: DP/PT 1/4 b/l , Temp gradient wnl, Cap fill time < 3 s x 10 Derm: Diffuse +2 pitting edema noted throughout the legs b/l, there is minimal edema noted locally around the right 1st MPJ, there is diffuse non pitting edema noted on the dorsum of feet b/l, There is no open lesions, no clinical signs of infection noted, nails are elongated and painful x 10 Neuro: Grossly intact ortho: Limited eval . Results - Vital Signs Recent Vital Signs: Last Vital Signs Temp 98.1 F 07/19/16 07:02 Pulse 90 07/19/16 07:02 Resp 20 07/19/16 07:02 BP 167/76 H 07/19/16 07:02 Pulse Ox 98 07/19/16 07:02 - Labs Result Diagrams: 07/17/16 06:15 07/17/16 06:15 Labs: Laboratory Results - last 24 hr 07/16/16 07/17/16 07/18/16 06:30 06:15 11:52 POC Glucose (mg/dL) 117 H Uric Acid Total Protein (PEP) 6.4 Albumin (PEP) 3.6 L Pvqjk-5-Xjzhpqfgh 0.3 Bktum-5-Vcwxapnkb 0.8 Zupd-3-Nxapbenz 0.6 Ctbj-9-Ysyevyfk 0.4 Gamma Globulins 0.7 L Abnorm Protein Band 1 TEST NOT PERFORMED Abnorm Protein Band 2 TEST NOT PERFORMED Abnorm Protein Band 3 TEST NOT PERFORMED PTH Intact Whole Molec 130 H Stool Occult Blood GUME & SPEP Interp See note JEWELL 6 Profile Negative 07/18/16 07/18/16 07/18/16 16:21 17:11 21:04 POC Glucose (mg/dL) 111 H 105 Uric Acid 7.3 Total Protein (PEP) Albumin (PEP) Iymbo-1-Pthmlwiob Rfzgb-2-Roydmrqov Grup-7-Ywphpzjz Axwz-8-Utzvoigr Gamma Globulins Abnorm Protein Band 1 Abnorm Protein Band 2 Abnorm Protein Band 3 PTH Intact Whole Molec Stool Occult Blood GUME & SPEP Interp JEWELL 6 Profile 07/19/16 07/19/16 06:20 07:47 POC Glucose (mg/dL) 82 Uric Acid Total Protein (PEP) Albumin (PEP) Vgapf-2-Pjekztmjc Qnegz-4-Szitzjeus Jncs-7-Fguukssw Htzd-8-Frhqosxd Gamma Globulins Abnorm Protein Band 1 Abnorm Protein Band 2 Abnorm Protein Band 3 PTH Intact Whole Molec Stool Occult Blood Negative GUME & SPEP Interp JEWELL 6 Profile Assessment & Plan - Assessment and Plan (Free Text) Assessment: 75 y/o male with b/l pitting edema , elongated nails, and gout . Plan: Patient evaluated and chart reviewed Seen at bedside with Dr. Tomlinson Gout seems to be improving clinically; can continue colchicine Nails aseptically debrided x 10 w/o complication Order placed for b/l ALEJANDRO stockings to be placedon patient Upon d/c patient iwll need placed at rehab facility. Can f/u w/ Dr. Comer upon d/c as needed. <Cristian Comer - Last Filed: 07/19/16 13:41> Meds - Medications Medications: Current Medications Colchicine (Colocrys) 0.6 mg PO QID [facility] Last Admin: 07/19/16 10:41 Dose: 0.6 mg Epoetin Kyle (Procrit) 10,000 unit SC MWF [facility] Last Admin: 07/18/16 09:32 Dose: 10,000 unit Finasteride (Proscar) 5 mg PO DAILY [facility] Last Admin: 07/18/16 11:00 Dose: 5 mg Hydralazine HCl (Apresoline) 25 mg PO TID [facility] Last Admin: 07/19/16 10:41 Dose: 25 mg Insulin Human Regular (Novolin R) 0 unit SC ACHS [facility] PRN Reason: Protocol Last Admin: 07/19/16 12:35 Dose: Not Given Pantoprazole Sodium (Protonix Ec Tab) 40 mg PO DAILY [facility] Last Admin: 07/19/16 10:41 Dose: 40 mg Tamsulosin HCl (Flomax) 0.4 mg PO DAILY [facility] Last Admin: 07/19/16 10:41 Dose: 0.4 mg Vitamin B Complex/Vit C/Folic Acid (Nephro-Portia) 1 tab PO DAILY [facility] Last Admin: 07/19/16 10:41 Dose: 1 tab Results - Vital Signs Recent Vital Signs: Last Vital Signs Temp 98.1 F 07/19/16 07:02 Pulse 90 07/19/16 07:02 Resp 20 07/19/16 07:02 BP 167/76 H 07/19/16 07:02 Pulse Ox 98 07/19/16 07:02 - Labs Result Diagrams: 07/17/16 06:15 07/17/16 06:15 Labs: Laboratory Results - last 24 hr 07/17/16 07/18/16 07/18/16 06:15 16:21 17:11 POC Glucose (mg/dL) 111 H Uric Acid 7.3 Albumin (PEP) 3.6 L Xmvvk-6-Ttshizktq 0.3 Ehhmx-4-Mnkomdbnb 0.8 Ffhc-0-Xobdojni 0.6 Ljbt-5-Gmpefudr 0.4 Gamma Globulins 0.7 L Abnorm Protein Band 1 TEST NOT PERFORMED Abnorm Protein Band 2 TEST NOT PERFORMED Abnorm Protein Band 3 TEST NOT PERFORMED Stool Occult Blood GUME & SPEP Interp See note 07/18/16 07/19/16 07/19/16 21:04 06:20 07:47 POC Glucose (mg/dL) 105 82 Uric Acid Albumin (PEP) Rfhpm-7-Qfuhtjzwg Gghsj-8-Mnpuruzlj Qilg-4-Riqqgsjk Gkhh-3-Irhtcxdf Gamma Globulins Abnorm Protein Band 1 Abnorm Protein Band 2 Abnorm Protein Band 3 Stool Occult Blood Negative GUME & SPEP Interp 07/19/16 11:07 POC Glucose (mg/dL) 168 H Uric Acid Albumin (PEP) Nljta-6-Wupjrpvjo Fnogs-4-Jnbznjstc Bvko-9-Qogslvma Ufap-3-Zcxyhnub Gamma Globulins Abnorm Protein Band 1 Abnorm Protein Band 2 Abnorm Protein Band 3 Stool Occult Blood GUME & SPEP Interp Attending/Attestation - Attestation I have personally seen and examined this patient.: Yes I have fully participated in the care of the patient.: Yes I have reviewed all pertinent clinical information: Yes Notes (Text): 07/19/16 13:40 Pt seen with resident, Dr. Miles. Treatment was rendered.
--- NOTE | 2016-07-19 13:45 | CP.PCM.CON ---
History of Present Illness - History of Present Illness History of Present Illness: Pt seen at bedside with resident, Dr. Miles. Treatment was rendered and TEDs stockings were ordered. Full consult dictated by resident. Pt to follow up in office as outpatient. Past Patient History - Past Medical History & Family History Past Medical History?: Yes - Past Social History Smoking Status: Former Smoker - CARDIAC Hx Hypertension: Yes - PULMONARY Other/Comment: former smoker, SOB with exertion - NEUROLOGICAL Hx Neurological Disorder: No - HEENT Hx HEENT Problems: No - ENDOCRINE/METABOLIC Hx Endocrine Disorders: Yes Hx Diabetes Mellitus Type 2: Yes - HEMATOLOGICAL/ONCOLOGICAL Hx Blood Disorders: No - INTEGUMENTARY Hx Dermatological Problems: No - MUSCULOSKELETAL/RHEUMATOLOGICAL Hx Musculoskeletal Disorders: Yes Hx Falls: No Other/Comment: BLE weakness - GASTROINTESTINAL Hx Gastrointestinal Disorders: No - GENITOURINARY/GYNECOLOGICAL Hx Genitourinary Disorders: Yes Other/Comment: BPH - PSYCHIATRIC Hx Psychophysiologic Disorder: No Hx Substance Use: No - SURGICAL HISTORY Hx Surgeries: Yes Hx Appendectomy: Yes Hx Cataract Extraction: Yes Other/Comment: lump removed from left foot - ANESTHESIA Hx Anesthesia: Yes Has any member of the family had a problem w/ anesthesia?: No Meds Home Medications: Home Medication List Medication Instructions Recorded Confirmed Type RX: Colchicine 0.6 mg PO BID #60 tablet 07/19/16 Rx RX: Furosemide [Lasix] 20 mg PO DAILY #30 tablet 07/19/16 Rx RX: hydrALAZINE [Apresoline] 25 mg PO TID tab 07/19/16 Rx Allergies/Adverse Reactions: Allergies Allergy/AdvReac Type Severity Reaction Status Date / Time calcium carbonate [From Tums] Allergy Verified 07/15/16 15:29 dates Allergy Uncoded 07/15/16 14:52 - Medications Medications: Current Medications Colchicine (Colocrys) 0.6 mg PO QID [facility] Last Admin: 07/19/16 10:41 Dose: 0.6 mg Epoetin Kyle (Procrit) 10,000 unit SC MWF [facility] Last Admin: 07/18/16 09:32 Dose: 10,000 unit Finasteride (Proscar) 5 mg PO DAILY [facility] Last Admin: 07/18/16 11:00 Dose: 5 mg Hydralazine HCl (Apresoline) 25 mg PO TID [facility] Last Admin: 07/19/16 10:41 Dose: 25 mg Insulin Human Regular (Novolin R) 0 unit SC ACHS [facility] PRN Reason: Protocol Last Admin: 07/19/16 12:35 Dose: Not Given Pantoprazole Sodium (Protonix Ec Tab) 40 mg PO DAILY [facility] Last Admin: 07/19/16 10:41 Dose: 40 mg Tamsulosin HCl (Flomax) 0.4 mg PO DAILY [facility] Last Admin: 07/19/16 10:41 Dose: 0.4 mg Vitamin B Complex/Vit C/Folic Acid (Nephro-Portia) 1 tab PO DAILY [facility] Last Admin: 07/19/16 10:41 Dose: 1 tab Results - Vital Signs Recent Vital Signs: Last Vital Signs Temp 98.1 F 07/19/16 07:02 Pulse 90 07/19/16 07:02 Resp 20 07/19/16 07:02 BP 167/76 H 07/19/16 07:02 Pulse Ox 98 07/19/16 07:02 - Labs Result Diagrams: 07/17/16 06:15 07/17/16 06:15 Labs: Laboratory Results - last 24 hr 07/17/16 07/18/16 07/18/16 06:15 16:21 17:11 POC Glucose (mg/dL) 111 H Uric Acid 7.3 Albumin (PEP) 3.6 L Dvcgw-7-Sxduoyjvb 0.3 Vzoer-6-Ljzjrjvqv 0.8 Ndnx-0-Rgmktefc 0.6 Rfvm-4-Khkprboy 0.4 Gamma Globulins 0.7 L Abnorm Protein Band 1 TEST NOT PERFORMED Abnorm Protein Band 2 TEST NOT PERFORMED Abnorm Protein Band 3 TEST NOT PERFORMED Stool Occult Blood GUME & SPEP Interp See note 07/18/16 07/19/16 07/19/16 21:04 06:20 07:47 POC Glucose (mg/dL) 105 82 Uric Acid Albumin (PEP) Yewur-8-Bwyegucha Ckevo-9-Xnxkikiym Cskq-2-Bjjbtvbz Wiyh-7-Ughtgqww Gamma Globulins Abnorm Protein Band 1 Abnorm Protein Band 2 Abnorm Protein Band 3 Stool Occult Blood Negative GUME & SPEP Interp 07/19/16 11:07 POC Glucose (mg/dL) 168 H Uric Acid Albumin (PEP) Ngwhm-6-Iovjjxogo Fraev-4-Wqjaspftr Wiie-0-Ewdyqfcn Wpak-5-Ratrcwrt Gamma Globulins Abnorm Protein Band 1 Abnorm Protein Band 2 Abnorm Protein Band 3 Stool Occult Blood GUME & SPEP Interp
[2016-07-19 15:25] LABS: HEMOGLOBIN F <1.0 Percent (<2.0)
[2016-07-19 15:51] VITALS: BP 158/79; PULSE 90; TEMP 98
--- NOTE | 2016-07-19 16:46 | DS ---
The patient is being transferred to rehab today. This is a 75-year-old gentleman with history of marshal sarah, hypertension. Was brought in with acute renal failure. His creatinine was 2.7. Hemoglobin w as 7 grams. The patient was admitted to telemetry floor. IV Lasix was given. Medications were adju sted. Nephrology consultation, was evaluated by Dr. Kirk. Procrit has been started. Two un its of packed cells were given. Lasix was given with improvement. The patient will be started in ph ysical therapy and transferred to rehab. Workup during the hospitalization had shown that hemoglobin has come back to 9.5. His potassium was 6.4 initially, which is 4.5 now. BUN is 38 and creatinine is 2.6 today. His Accu-Cheks are acceptable too, in the 100 range. His total cholesterol is 146. P TH was 130. PSA is 1.5. Urine was unremarkable. Stool for occult blood was negative. Hepatitis acevedo el was negative. Renal ultrasound was negative. Chest x-ray did not show any evidence of CHF. At t his point, patient is stable. I am going to discharge to rehab and I will see him back in about a we ek's time. The patient will be followed by ____ Carlos and Dr. Kirk also. DISCHARGE MEDICATIONS: Include hydralazine 25 mg p.o. 3 times a day, Cardizem and Vasotec has been d iscontinued, Lasix 20 mg once a day, Procrit as per Dr. Kirk, multivitamin 1 a day. DIET: Two g sodium, 1800 ADA renal diet. FINAL DIAGNOSES: Acute renal failure, diastolic congestive heart failure, fluid overload. He also h ad urinary retention and a Garay was placed in. The patient was seen by Dr. Montoya. He is on Prosc ar and Flomax. The patient was also seen by Dr. Cristian Comer for foot care, being a diabetic. Rigo Comer MD cc: [id number] TT: 07/19/2016 16:46:03 sn
--- NOTE | 2016-07-21 07:22 | CON ---
DATE: 07/18/2016 UROLOGY CONSULTATION REQUESTED BY: Dr. Rigo Comer. UROLOGY CONSULTATION FILLED BY: Dr. Eli Montoya. REASON FOR CONSULTATION: Azotemia. Obstructive uropathy. Enlarged prostate. The patient is a 75-year-old male admitted with renal insufficiency. The patient had abdominal pain. The patient also had swelling of lower extremities. The patient presented to the hospital with progression of his renal insufficiency. The patient reports he had difficulty voiding. He subsequently had catheterization. The patient reports that he is now voiding better. The patient has a history of BPH. He has been on medication therapy including finasteride and tamsul osin. There was no history of urolithiasis. No recent hematuria. The patient has nocturia x 2-3. The patient has no flank pain. The patient has occasional abdominal pain. There is no incontinence. No urolithiasis. No recent fever or rigors. The patient lives with his . There is history of hypertension. There is history of diabetes. There is history of renal insuffici ency which is reported to have worsened. His further details are as per attached chart. The chart, lab data and x-ray reports are reviewed. PHYSICAL EXAMINATION: GENERAL: The patient is well-developed, well-nourished elderly male. The patient is awake and alert . ABDOMEN: Soft, mildly protuberant. Nontender, mildly distended. No mass or organomegaly. No bladd er dullness to percussion. BACK: No CVA tenderness. GENITALIA: Without inflammation. Normal male. RECTAL: Normal sphincter tone. Prostate is enlarged. Prostate is approximately 30 mL in size. Pro state is smooth and supple and symmetric, without fixation, induration, or nodularity. Renal ultrasound demonstrated no hydronephrosis. IMPRESSION: A 75-year-old male with azotemia. Benign prostatic hypertrophy. The renal insufficiency may not be related to prostatic enlargement. The patient may have bladder ou tlet obstruction. He reports that he is comfortable with voiding at present. The renal insufficiency may be related to his hypertension and diabetes. RECOMMENDATIONS AND PLAN: Monitor the urine output. I recommend obtaining serum PSA. I will monito r postvoid residual. Possible need for further urologic evaluation, further therapy to follow accord ing to patient's clinical course as well as results of above. Thank you for recommending the patient for urology consultation. Eli Montoya MD cc: [id number] TT: 07/20/2016 07:55:09 Confirmation # [id number] Dictation # [id number] mn
== END 2016-07-19 17:08 | DRG 683 ==
LOC: C.ER 14:41 → C.9E 17:21 → C.6T 19:19
PROVIDERS: ADMIT Internal Medicine Cardiovascular Disease; ATTEND Internal Medicine Cardiovascular Disease
PROC: 30233N1 Transfusion of Nonautologous Red Blood Cells into Peripheral Vein, Percutaneous Approach (ICD-10-PCS; principal; 2016-07-15)
PROC: 0HBRXZZ Excision of Toe Nail, External Approach (ICD-10-PCS; 2016-07-19)
PROC: 0HBRXZZ Excision of Toe Nail, External Approach (ICD-10-PCS; 2016-07-19)
PROC: 0HBRXZZ Excision of Toe Nail, External Approach (ICD-10-PCS; 2016-07-19)
PROC: 0HBRXZZ Excision of Toe Nail, External Approach (ICD-10-PCS; 2016-07-19)
PROC: 0HBRXZZ Excision of Toe Nail, External Approach (ICD-10-PCS; 2016-07-19)
PROC: 0HBRXZZ Excision of Toe Nail, External Approach (ICD-10-PCS; 2016-07-19)
PROC: 0HBRXZZ Excision of Toe Nail, External Approach (ICD-10-PCS; 2016-07-19)
PROC: 0HBRXZZ Excision of Toe Nail, External Approach (ICD-10-PCS; 2016-07-19)
PROC: 0HBRXZZ Excision of Toe Nail, External Approach (ICD-10-PCS; 2016-07-19)
PROC: 0HBRXZZ Excision of Toe Nail, External Approach (ICD-10-PCS; 2016-07-19)
DX: N17.9 Acute kidney failure, unspecified (principal); I13.0 Hypertensive heart and chronic kidney disease with heart failure and stage 1 through stage 4 chronic kidney disease, or unspecified chronic kidney disease; I50.30 Unspecified diastolic (congestive) heart failure; E11.21 Type 2 diabetes mellitus with diabetic nephropathy; N13.9 Obstructive and reflux uropathy, unspecified; E87.5 Hyperkalemia; N18.4 Chronic kidney disease, stage 4 (severe); E78.5 Hyperlipidemia, unspecified; R60.0 Localized edema; T46.1X5A Adverse effect of calcium-channel blockers, initial encounter; N40.1 Benign prostatic hyperplasia with lower urinary tract symptoms; R33.8 Other retention of urine; R35.1 Nocturia; D63.1 Anemia in chronic kidney disease; L60.8 Other nail disorders; Z79.84 Long term (current) use of oral hypoglycemic drugs; Z87.891 Personal history of nicotine dependence

== ENCOUNTER 2016-10-03 14:13 | Inpatient (IN) | payer MEDICARE ==
--- NOTE | 2016-10-03 15:39 | C.PDOC ---
History Of Present Illness 76 y/o M c PMHx CKD, anemia p/w general weakness x 3 days. Reports pale skin. Reports stool black but always as such due to iron pills. Denies fever, chills, chest pain, dyspnea, palpitations, abdominal pain, vomiting, diarrhea, constipation, dysuria, leg swelling. suspects he has anemia. Time Seen by Provider: 10/03/16 15:15 Chief Complaint (Nursing): Weakness/Neurological Deficit Past Medical History Vital Signs: Last Vital Signs Temp 97.9 F 10/03/16 14:30 Pulse 100 H 10/03/16 14:26 Resp 18 10/03/16 14:26 BP 139/61 10/03/16 14:26 Pulse Ox 98 10/03/16 15:39 - Medical History PMH: HTN, Hyperlipidemia Surgical History: Appendectomy - [facility] Procedures EXCISION OF TOE NAIL, EXTERNAL APPROACH (07/15/16) TRANSFUSE NONAUT RED BLOOD CELLS IN PERIPH VEIN, PERC (07/15/16) Family History: States: Unknown Family Hx - Social History Hx Alcohol Use: No Hx Substance Use: No - Immunization History Hx Tetanus Toxoid Vaccination: No Hx Influenza Vaccination: No Hx Pneumococcal Vaccination: No Review Of Systems Except As Marked, All Systems Reviewed And Found Negative. Constitutional: Negative for: Fever Cardiovascular: Negative for: Chest Pain Physical Exam - Physical Exam Additional Physical Exam Comments: Constitutional: No acute distress. Appears weak. Head: Normocephalic. Atraumatic. Eyes: PERRL. Conjunctival pallor. ENT: Dry mucous membranes. Neck: Supple. Cardiovascular: Regular rate. Radial pulse 2+ bilaterally. No murmur. Chest: No tenderness. Respiratory: Clear to auscultation bilaterally. GI: Soft. Nontender. Nondistended. Back: No CVA tenderness. Musculoskeletal: No tenderness or swelling of extremities. Skin: Pale. Neurologic: Alert, no focal deficit. Persists in wanting to go to bathroom despite pierre. ED Course And Treatment - Laboratory Results Result Diagrams: 10/03/16 15:51 10/03/16 15:51 O2 Sat by Pulse Oximetry: 98 Medical Decision Making Medical Decision Making: EKG Sinus rhythm 104 bpm, no ST/T wave changes. CXR IMPRESSION: Mild venous congestion. Biapical pleural thickening. Right hilar prominence. Patchy increased markings at the left lung base. Mild blunting of the left costophrenic angle which may represent pleural thickening and or trace effusion. Clinical correlation. Patient with anemia, transfusion ordered. Also with marked hyponatremia, will require further evaluation prior to treatment. Patient is awake, alert, and not somnolent or with seizures. Dr. Comer accepts patient to his service, recommends Dr. Kirk for nephrology consult. Dr. Quintanilla notified for ICU admission. Disposition - Disposition Disposition: HOSPITALIZED Disposition Time: 16:07 Condition: CRITICAL - Clinical Impression Clinical Impression: Anemia, Hyponatremia, Symptomatic anemia
[2016-10-03 15:56] LABS: BASO % 0.3 % (0.0-2.0); EOS % 0.1 % (0.0-4.0); LYMPH # 0.5 K/uL (1.0-4.3); LYMPH % 6.7 % (20.0-40.0); MEAN CORPUSCULAR HEMOGLOBIN 28.9 pg (27.0-31.0); MEAN PLATELET VOLUME 7.6 fL (7.2-11.7); MONO # 0.5 K/uL (0.0-0.8); MONO % 6.3 % (0.0-10.0); NEUT # 6.8 K/uL (1.8-7.0); NEUT % 86.6 % (50.0-75.0); RED CELL DISTRIBUTION WIDTH 16.6 % (11.5-14.5); WHITE BLOOD COUNT 7.8 K/uL (4.8-10.8)
[2016-10-03 16:02] LABS: HEMOGLOBIN 6.4 g/dL (12.0-18.0); MEAN CELL VOLUME 85.2 fL (80.0-94.0)
[2016-10-03 16:03] LABS: PLATELET COUNT 441 K/uL (130-400)
[2016-10-03 16:05] LABS: ALBUMIN 3.7 g/dL (3.5-5.0)
[2016-10-03 16:07] LABS: PROTHROMBIN TIME 10.7 SECONDS (9.7-12.2)
[2016-10-03 16:09] LABS: ALB/GLOB RATIO 1.3 (1.0-2.1); CALCIUM 8.2 mg/dl (8.6-10.4)
--- NOTE | 2016-10-03 16:12 | RAD ---
HISTORY: general weakness COMPARISON: 07/15/2016 FINDINGS: LUNGS: Mild venous congestion. Biapical pleural thickening. Right hilar prominence. Patchy increased markings at the left lung base. Mild blunting of the left costophrenic angle which may represent pleural thickening and or trace effusion. Clinical correlation. PLEURA: As above. CARDIOVASCULAR: Calcification at the aortic knob. OSSEOUS STRUCTURES: Calcific tendinopathy of the left proximal humerus. VISUALIZED UPPER ABDOMEN: Normal. OTHER FINDINGS: None. IMPRESSION: Mild venous congestion. Biapical pleural thickening. Right hilar prominence. Patchy increased markings at the left lung base. Mild blunting of the left costophrenic angle which may represent pleural thickening and or trace effusion. Clinical correlation.
[2016-10-03 16:32] LABS: URINE BILIRUBIN NEGATIVE (NEGATIVE); URINE BLOOD NEGATIVE (NEGATIVE); URINE CLARITY Clear (Clear); URINE COLOR Yellow (YELLOW); URINE GLUCOSE (UA) NORMAL (Normal); URINE LEUKOCYTE ESTERASE NEG Leu/uL (Negative); URINE NITRATE NEGATIVE (NEGATIVE); URINE PROTEIN NEGATIVE (NEGATIVE); URINE UROBILINOGEN NORMAL mg/dL (0.2-1.0)
--- NOTE | 2016-10-03 18:25 | CP.PCM.CON ---
Past Patient History - Past Medical History & Family History Past Medical History?: Yes - Past Social History Smoking Status: Former Smoker - CARDIAC Hx Hypertension: Yes - PULMONARY Other/Comment: former smoker, SOB with exertion - NEUROLOGICAL Hx Neurological Disorder: No - HEENT Hx HEENT Problems: No - ENDOCRINE/METABOLIC Hx Endocrine Disorders: Yes Hx Diabetes Mellitus Type 2: Yes - HEMATOLOGICAL/ONCOLOGICAL Hx Blood Disorders: No - INTEGUMENTARY Hx Dermatological Problems: No - MUSCULOSKELETAL/RHEUMATOLOGICAL Hx Musculoskeletal Disorders: Yes Hx Falls: No Other/Comment: BLE weakness - GASTROINTESTINAL Hx Gastrointestinal Disorders: No - GENITOURINARY/GYNECOLOGICAL Hx Genitourinary Disorders: Yes Other/Comment: BPH - PSYCHIATRIC Hx Substance Use: No - SURGICAL HISTORY Hx Appendectomy: Yes - ANESTHESIA Hx Anesthesia: Yes Meds Allergies/Adverse Reactions: Allergies Allergy/AdvReac Type Severity Reaction Status Date / Time calcium carbonate [From Tums] Allergy Verified 10/03/16 14:29 dates Allergy Uncoded 10/03/16 14:29 Results - Vital Signs Recent Vital Signs: Last Vital Signs Temp 97.9 F 10/03/16 14:30 Pulse 100 H 10/03/16 14:26 Resp 18 10/03/16 14:26 BP 139/61 10/03/16 14:26 Pulse Ox 98 10/03/16 18:01 - Labs Result Diagrams: 10/03/16 15:51 10/03/16 15:51
[2016-10-03] MEDS ORDERED: Sodium Chloride 0.9% 1,000 ML IV SCH (18:30)
--- NOTE | 2016-10-03 19:08 | CP.PCM.CON ---
History of Present Illness - History of Present Illness History of Present Illness: Altered mental status. History present illness: 76-year-old male with history of hypertension, advanced renal disease, chronic anemia, hypertension, diabetes, recently hospitalized and received a blood transfusion. Patient came to the emergency room because of the weakness, called the ambulance by the family member. Patient is not eating well, 3-4 days he is not well. He was feeling increasingly weakness, increasingly lethargic. He is also falling. Today he was more weak, was not able to get up. He did not have any nausea vomiting. No diarrhea noted. Poor intake noted. He is not having good appetite. No fever or chills noted, today patient was also not oriented, he was more confused today and he was brought in by the family member via ambulance. Past medical history: Renal insufficiency, anemia, diabetes, hypertension. Allergy: No known drug allergy Personal history: Nonsmoker nonalcoholic Surgical history none Allergies reviewed Medications reviewed Patient was taking iron supplementation, hydralazine, injection epogen on examination: Patient is somewhat sleepy drowsy. But easily arousable. Oriented. General is to anasarca noted. Not in any distress otherwise. Chest bilateral good air entry. Regular heart sound. Abdomen nontender. Extremities 2+ pedal edema bilaterally noted [employer] alert awake, but somewhat sleepy easily. Patient is oriented to place, oriented to person. He is not oriented to time. Labs reviewed Hemoglobin is 6.8. Sodium level is also on the low side. Assessment and recommendation: 76-year-old male with history of renal insufficiency, hypertension, anemia, diabetes reviewed blood transfusion recently. Now admitted with the severe anemia, chronic most likely. Patient is also having severe hyponatremia acute. Overload status noted. Hypervolemic hyponatremia likely. We'll continue the fluid monitoring. Nephrology evaluation. Monitor the sodium level. Overall prognosis is guarded. Hypertension noted. Worsening renal insufficiency. Urine output monitoring Past Patient History - Past Medical History & Family History Past Medical History?: Yes - Past Social History Smoking Status: Former Smoker - CARDIAC Hx Hypertension: Yes - PULMONARY Other/Comment: former smoker, SOB with exertion - NEUROLOGICAL Hx Neurological Disorder: No - HEENT Hx HEENT Problems: No - ENDOCRINE/METABOLIC Hx Endocrine Disorders: Yes Hx Diabetes Mellitus Type 2: Yes - HEMATOLOGICAL/ONCOLOGICAL Hx Blood Disorders: No - INTEGUMENTARY Hx Dermatological Problems: No - MUSCULOSKELETAL/RHEUMATOLOGICAL Hx Musculoskeletal Disorders: Yes Hx Falls: No Other/Comment: BLE weakness - GASTROINTESTINAL Hx Gastrointestinal Disorders: No - GENITOURINARY/GYNECOLOGICAL Hx Genitourinary Disorders: Yes Other/Comment: BPH - PSYCHIATRIC Hx Substance Use: No - SURGICAL HISTORY Hx Appendectomy: Yes - ANESTHESIA Hx Anesthesia: Yes Meds Allergies/Adverse Reactions: Allergies Allergy/AdvReac Type Severity Reaction Status Date / Time calcium carbonate [From Tums] Allergy Verified 10/03/16 14:29 dates Allergy Uncoded 10/03/16 14:29 - Medications Medications: Current Medications Sodium Chloride (Sodium Chloride 0.9%) 1,000 mls @ 50 mls/hr IV .Q20H JENNY Results - Vital Signs Recent Vital Signs: Last Vital Signs Temp 98.4 F 10/03/16 18:40 Pulse 109 H 10/03/16 18:40 Resp 22 10/03/16 18:40 BP 142/49 L 10/03/16 18:40 Pulse Ox 99 10/03/16 18:40 - Labs Result Diagrams: 10/03/16 15:51 10/03/16 15:51
--- NOTE | 2016-10-03 20:17 | CP.PCM.CON ---
History of Present Illness - History of Present Illness History of Present Illness: pt seen and examined, full consult is dictated #[id number] 1. hyponatremia, r/o hypotonic hypovolemic hyponatreia, r/o siadh 2. obstructive uropathy 3. severe anemia, r/o gi loss, r/o fe deficiency agree with transfusion, check urine lytes, osm, serum osm, uric acid, tsh, cortisol in am stool for ob, fe,tibc, ferritin level agree with gentle hydration and transfusion do not raise serum na not more than 8- 10 meq/day call me with cmp results Past Patient History - Past Medical History & Family History Past Medical History?: Yes - Past Social History Smoking Status: Former Smoker - CARDIAC Hx Hypertension: Yes - PULMONARY Other/Comment: former smoker, SOB with exertion - NEUROLOGICAL Hx Neurological Disorder: No - HEENT Hx HEENT Problems: No - ENDOCRINE/METABOLIC Hx Endocrine Disorders: Yes Hx Diabetes Mellitus Type 2: Yes - HEMATOLOGICAL/ONCOLOGICAL Hx Blood Disorders: No - INTEGUMENTARY Hx Dermatological Problems: No - MUSCULOSKELETAL/RHEUMATOLOGICAL Hx Musculoskeletal Disorders: Yes Hx Falls: No Other/Comment: BLE weakness - GASTROINTESTINAL Hx Gastrointestinal Disorders: No - GENITOURINARY/GYNECOLOGICAL Hx Genitourinary Disorders: Yes Other/Comment: BPH - PSYCHIATRIC Hx Substance Use: No - SURGICAL HISTORY Hx Appendectomy: Yes - ANESTHESIA Hx Anesthesia: Yes Meds Allergies/Adverse Reactions: Allergies Allergy/AdvReac Type Severity Reaction Status Date / Time calcium carbonate [From Tums] Allergy Verified 10/03/16 14:29 dates Allergy Uncoded 10/03/16 14:29 - Medications Medications: Current Medications Sodium Chloride (Sodium Chloride 0.9%) 1,000 mls @ 50 mls/hr IV .Q20H JENNY Results - Vital Signs Recent Vital Signs: Last Vital Signs Temp 98.4 F 10/03/16 18:40 Pulse 109 H 10/03/16 18:40 Resp 22 10/03/16 18:40 BP 142/49 L 10/03/16 18:40 Pulse Ox 99 10/03/16 18:40 - Labs Result Diagrams: 10/03/16 15:51 10/03/16 20:01
[2016-10-03 20:18] LABS: CALCIUM 8.1 mg/dl (8.6-10.4)
[2016-10-03 21:49] LABS: IRON 39 ug/dL (49-181)
[2016-10-03 21:59] LABS: % IRON SATURATION 12 (20-55); TOTAL IRON BINDING CAPACITY 335 ug/dL (250-450)
[2016-10-03 22:13] LABS: ANISOCYTOSIS SLIGHT; LYMPHOCYTE 7 % (20-40); MONOCYTE 7 % (0-10); NEUTROPHIL 86 % (50-75); PLATELET ESTIMATE NORMAL (NORMAL); TOTAL CELLS COUNTED 100
[2016-10-03 22:14] LABS: HYPERSEGMENTATION PRESENT; LARGE PLATELETS PRESENT; MICROCYTOSIS SLIGHT; POIKILOCYTOSIS SLIGHT; POLYCHROMIC SLIGHT; SMUDGE CELLS PRESENT; TOXIC GRANULATION PRESENT
[2016-10-03 22:20] LABS: URIC ACID 7.1 mg/dL (3.5-8.5)
--- NOTE | 2016-10-04 00:12 | CON ---
DATE: 10/03/2016 The patient is located in ICU, bed 9. REQUESTING PHYSICIAN: Dr. Rigo Comer. REASON FOR RENAL CONSULTATION: Severe hyponatremia, chronic kidney disease stage IV and severe anemia and with generalized weakness and for further evaluation. HISTORY OF PRESENT ILLNESS: The patient is a 76-year-old elderly [place] male with a past medical history significant for hypertension for about 20 years, diabetes for about 15 years, chronic kidney disease stage IV, anemia with a baseline creatinine about 2.6-2.8, who was brought in by the patient's through EMS with chief complaints of generalized weakness for the last 3-4 days and feeling very weak and tired and history of falls. When he tried to walk, he is losing the balance and he is slowly sliding down to floor. The patient's family denies any injury to the head or injury to the body. The patient's is at bed side,, is very supportive and denies any chest pain, palpitation. Denies any fever, cough. Denies any abdominal pain. Denies any nausea, vomiting. Denies any diarrhea. The patient's complaints of black stool, claims he is taking iron tablets. The patient is not in acute distress, also complains of swelling of the legs for the last 2 weeks. PAST MEDICAL HISTORY: Significant for hypertension since age 55, diabetes since age 60, chronic kidney disease, anemia and hyperlipidemia. PAST SURGICAL HISTORY: Appendectomy in 1973. SOCIAL HISTORY: Quit alcohol about 30 years ago and a former smoker. No drug abuse. FAMILY HISTORY: Father at age 75 and mother at age 75 with hypertension and diabetes. He has 4 children and 3 daughters and 1 son, son has diabetes. CURRENT MEDICATIONS: Include Flomax 0.4 mg p.o. daily, Lopid 600 mg p.o. daily , Lasix 20 mg p.o. daily, Proscar 5 mg p.o. daily, ferrous sulfate 325 mg p.o. b.i.d., enalapril 10 mg p.o. daily, hydralazine 25 mg p.o. t.i.d., colchicine 0.6 mg p.o. b.i.d. REVIEW OF SYSTEMS: Significant for generalized weakness, feeling tired and losing balance and decreased p.o. intake for the last 3-4 days and black stools and also has edema of the legs. All other review of systems are reviewed and are negative. PHYSICAL EXAMINATION: VITAL SIGNS: Blood pressure 142/49, pulse 109, respirations 22, temperature 98.4, saturation 99%. Height is 5 feet 7 inches and weight is 226 pounds. ALLERGIES: ALLERGIC TO CALCIUM CARBONATE AND DATES. GENERAL: The patient is a 76-year-old elderly male, well built, well nourished , not in acute distress. HEENT: Pupils normal, reactive to light and accommodation. Conjunctivae pink. Sclerae anicteric. Tongue is moist. NECK: Trachea is midline. LUNGS: Symmetric on both sides. Bilateral breath sounds present. Clear on auscultation. CARDIOVASCULAR: Dante at the fifth intercostal space of midclavicular line. S1 and S2 audible. No murmur, no gallop. ABDOMEN: Normal in appearance, soft, tympanic. No guarding, no rigidity, no hepatosplenomegaly. CENTRAL NERVOUS SYSTEM: The patient is slightly drowsy, arousable, following commands appropriately. EXTREMITIES: The patient notes he is in [facility]. He knows this is 2016 and the month of September, but he does not know the date and he thinks today is Monday. SENSORY AND MOTOR SYSTEM: Grossly within normal limits. EXTREMITIES: No cyanosis, no clubbing. The patient has 2+ edema in both lower extremities. LABORATORY DATA: Include as follows: As of 10/03/2016, WBC 7.8, hemoglobin 6.4 , hematocrit is 18.7 and platelets 441 and the neutrophils 86, lymphs 7, monocytes 7. PT is 10.7, PTT 27 and sodium is 108, potassium 4.5, chloride 75 and BUN 72, creatinine 2.9, glucose 118, and calcium is 8.2, total bilirubin 0.5 , AST 41, ALT 28, alk phos is 82. Total protein 6.6, albumin is 3.7 and lipase is 324. TSH is pending. Urinalysis: Yellow, clear, pH 6, specific gravity 1009, protein negative, glucose normal, ketones negative, blood negative, bilirubin negative, leukocyte esterase negative, WBC less than 1, RBC less than 1. Urine osmolarity 181, urine sodium is 24, urine potassium is 7.2. Repeat BMP: Sodium is 111, potassium 3.7, chloride 78, CO2 of 21, BUN 69, creatinine 3.0. Glucose 96 and serum osmolality 285. Uric acid is 7.1 and calcium 8.1 and iron is 39, TIBC is 335, saturation is 12. Ferritin is 147. Chest x-ray as of 10/03/2016, impression is mild venous congestion, biapical pleural thickening, right hilar prominence with patchy increased marking at the left lung base, mild blunting of the left costophrenic angle which may represent pleural thickening or trace effusion. SUMMARY: The patient is a 76-year-old elderly male with a history of hypertension, diabetes, hyperlipidemia, chronic kidney disease stage IV, gout and anemia, was admitted with black stool and also feeling weak and tired, low H and H and also low serum sodium on severe salt restriction and also with urinary retention and drained about close to 2 liters urine after insertion of the Garay catheter in the Emergency Room. 1. Hyponatremia, rule out hypotonic hypovolemic hyponatremia, cannot rule out syndrome of inappropriate antidiuretic hormone. Cannot rule out hyponatremia. 2. Obstructive uropathy. 3. Severe anemia, rule out gastrointestinal loss and rule out iron deficiency anemia. fes 12% consistent with iron deficiency and renal failure. Cannot rule out gastrointestinal loss at this time. PLAN: Check stool for occult blood and transfuse as per PMD and continue IV fluids, normal saline at 70 mL per hour. Discontinue Lasix at this time. Check stool for occult blood and we will add Epogen 10,000 units 3 times a week , also IV iron 125 mg daily and follow BMP q. 8 hours. Try not to increase serum sodium not more than 10-12 mEq per day. Discontinue the colchicine. Also consider H2 jesus, Protonix 40 mg IV daily, and consider GI evaluation for possible EGD and colonoscopy to rule out any gastritis. Emir Kirk MD cc: 165 TT: 10/04/2016 00:11:56 Confirmation # [id number] Dictation # [id number] GEMMA
[2016-10-04] MEDS: Sodium Chloride 0.9% 1,000 ML IV SCH ×2 (00:15→14:45)
[2016-10-04 01:30] LABS: CALCIUM 8.1 mg/dl (8.6-10.4)
[2016-10-04 06:21] LABS: BASO % 0.3 % (0.0-2.0); EOS % 0.5 % (0.0-4.0); LYMPH # 0.8 K/uL (1.0-4.3); LYMPH % 9.1 % (20.0-40.0); MEAN CELL VOLUME 85.2 fL (80.0-94.0); MEAN CORPUSCULAR HEMOGLOBIN 29.2 pg (27.0-31.0); MEAN CORPUSCULAR HGB CONC 34.3 g/dL (33.0-37.0); MEAN PLATELET VOLUME 7.2 fL (7.2-11.7); MONO # 0.7 K/uL (0.0-0.8); MONO % 8.9 % (0.0-10.0); NEUT # 6.7 K/uL (1.8-7.0); NEUT % 81.2 % (50.0-75.0); NRBC % 0.1 % (0.0-2.0); PLATELET COUNT 438 K/uL (130-400); RBC 2.72 Mil/uL (4.40-5.90); RED CELL DISTRIBUTION WIDTH 15.2 % (11.5-14.5); WHITE BLOOD COUNT 8.3 K/uL (4.8-10.8)
[2016-10-04 06:28] LABS: ALBUMIN 3.4 g/dL (3.5-5.0)
[2016-10-04 06:31] LABS: CALCIUM 8.4 mg/dl (8.6-10.4)
[2016-10-04 06:32] LABS: MAGNESIUM 2.1 mg/dL (1.6-2.3)
[2016-10-04 07:01] LABS: CORTISOL AM 25.7 ug/dL (4.46-22.7)
[2016-10-04 07:09] LABS: ALB/GLOB RATIO 1.4 (1.0-2.1)
--- NOTE | 2016-10-04 08:14 | CP.CCUPN ---
CCU Objective - Vital Signs / Intake & Output Vital Signs (Last 4 hours): Vital Signs Temp Pulse Resp BP Pulse Ox 10/04/16 08:02 88 19 147/68 99 10/04/16 08:00 98.1 F 10/04/16 07:02 139/65 10/04/16 07:00 94 H 23 100 10/04/16 06:02 94 H 18 142/55 L 100 10/04/16 05:03 90 11 L 131/57 L 99 Intake and Output (Last 8hrs): Intake & Output 10/03/16 10/04/16 10/04/16 22:59 06:59 14:59 Intake Total 275 965 70 Output Total 705 1295 Balance -430 -330 70 Weight 214 lb 11.684 oz Intake: Intake, IV Amount 0 490 70 Right Forearm 0 490 70 Blood Product 275 425 Red Blood Cells Cpd As1 0 325 Lr Unit [id number] Other 50 Red Blood Cells Cpd As1 50 Lr Unit [id number] Output: Urine 705 1295 Urethral (Garay) 705 1295 Other: Voiding Method Indwelling Catheter - Medications Active Medications: Active Medications Generic Name Dose Route Start Last Admin Trade Name Freq PRN Reason Stop Dose Admin Epoetin Kyle 10,000 unit 10/04/16 10:00 Procrit SC TTS JENNY Ferric Sodium Gluconate Complex 125 mg 10/04/16 10:00 Ferrlecit IVPB 10/12/16 10:01 DAILY JENNY Finasteride 5 mg 10/04/16 10:00 Proscar PO DAILY JENNY Gemfibrozil 600 mg 10/04/16 10:00 Lopid PO DAILY JENNY Hydralazine HCl 25 mg 10/04/16 10:00 Apresoline PO TID JENNY Sodium Chloride 1,000 mls @ 70 mls/hr 10/03/16 22:41 10/04/16 00:15 Sodium Chloride 0.9% IV 70 mls/hr .[id number] JENNY Administration Pantoprazole Sodium 40 mg 10/03/16 23:00 10/04/16 00:25 Protonix Inj IVP 40 mg Q12H JENNY Administration Tamsulosin HCl 0.4 mg 10/04/16 10:00 Flomax PO DAILY JENNY - Patient Studies Lab Studies: Lab Studies 10/04/16 10/04/16 10/04/16 Range/Units 06:12 06:12 00:45 WBC 8.3 (4.8-10.8) K/uL RBC 2.72 L (4.40-5.90) Mil/uL Hgb 8.0 L (12.0-18.0) g/dL Hct 23.2 L (35.0-51.0) % MCV 85.2 (80.0-94.0) fL MCH 29.2 (27.0-31.0) pg MCHC 34.3 (33.0-37.0) g/dL RDW 15.2 H (11.5-14.5) % Plt Count 438 H (130-400) K/uL MPV 7.2 (7.2-11.7) fL Neut % (Auto) 81.2 H (50.0-75.0) % Lymph % (Auto) 9.1 L (20.0-40.0) % [place] % (Auto) 8.9 (0.0-10.0) % Eos % (Auto) 0.5 (0.0-4.0) % Baso % (Auto) 0.3 (0.0-2.0) % Neut # 6.7 (1.8-7.0) K/uL Lymph # 0.8 L (1.0-4.3) K/uL [place] # 0.7 (0.0-0.8) K/uL Eos # 0.0 (0.0-0.7) K/uL Baso # 0.0 (0.0-0.2) K/uL Sodium 117 L* 112 L* (132-148) mmol/L Potassium 4.1 3.8 (3.6-5.2) mmol/L Chloride 85 L 78 L (98-107) mmol/L Carbon Dioxide 22 22 (22-30) mmol/L Anion Gap 14 16 (10-20) BUN 65 H 65 H (9-20) mg/dL Creatinine 2.7 H 2.9 H (0.8-1.5) MG/DL Est GFR ( Amer) 28 26 Est GFR (Non-Af Amer) 23 21 Random Glucose 92 94 (75-110) mg/dL Serum Osmolality (272-300) mosm/kg Uric Acid (3.5-8.5) mg/dL Calcium 8.4 L 8.1 L (8.6-10.4) mg/dl Phosphorus 4.4 (2.5-4.5) mg/dL Magnesium 2.1 (1.6-2.3) mg/dL Iron (49-181) ug/dL TIBC (250-450) ug/dL % Saturation (20-55) Ferritin ng/mL Total Bilirubin 1.0 (0.2-1.3) mg/dL AST 37 (17-59) U/L ALT 26 (21-72) U/L Alkaline Phosphatase 80 (38-126) U/L Total Protein 5.9 L (6.3-8.3) g/dL Albumin 3.4 L (3.5-5.0) g/dL Globulin 2.5 (2.2-3.9) gm/dL Albumin/Globulin Ratio 1.4 (1.0-2.1) TSH 3rd Generation (0.46-4.68) mIU/L Cortisol AM Sample 25.7 H (4.46-22.7) ug/dL Urine Osmolality (300-1000) mosm/kg Ur Random Sodium mmol/L Ur Random Potassium mmol/L 10/03/16 10/03/16 10/03/16 Range/Units 21:38 21:37 21:35 WBC (4.8-10.8) K/uL RBC (4.40-5.90) Mil/uL Hgb (12.0-18.0) g/dL Hct (35.0-51.0) % MCV (80.0-94.0) fL MCH (27.0-31.0) pg MCHC (33.0-37.0) g/dL RDW (11.5-14.5) % Plt Count (130-400) K/uL MPV (7.2-11.7) fL Neut % (Auto) (50.0-75.0) % Lymph % (Auto) (20.0-40.0) % [place] % (Auto) (0.0-10.0) % Eos % (Auto) (0.0-4.0) % Baso % (Auto) (0.0-2.0) % Neut # (1.8-7.0) K/uL Lymph # (1.0-4.3) K/uL [place] # (0.0-0.8) K/uL Eos # (0.0-0.7) K/uL Baso # (0.0-0.2) K/uL Sodium (132-148) mmol/L Potassium (3.6-5.2) mmol/L Chloride (98-107) mmol/L Carbon Dioxide (22-30) mmol/L Anion Gap (10-20) BUN (9-20) mg/dL Creatinine (0.8-1.5) MG/DL Est GFR ( Amer) Est GFR (Non-Af Amer) Random Glucose (75-110) mg/dL Serum Osmolality 285 (272-300) mosm/kg Uric Acid (3.5-8.5) mg/dL Calcium (8.6-10.4) mg/dl Phosphorus (2.5-4.5) mg/dL Magnesium (1.6-2.3) mg/dL Iron 39 L (49-181) ug/dL TIBC 335 (250-450) ug/dL % Saturation 12 L (20-55) Ferritin ng/mL Total Bilirubin (0.2-1.3) mg/dL AST (17-59) U/L ALT (21-72) U/L Alkaline Phosphatase (38-126) U/L Total Protein (6.3-8.3) g/dL Albumin (3.5-5.0) g/dL Globulin (2.2-3.9) gm/dL Albumin/Globulin Ratio (1.0-2.1) TSH 3rd Generation (0.46-4.68) mIU/L Cortisol AM Sample (4.46-22.7) ug/dL Urine Osmolality 181 L (300-1000) mosm/kg Ur Random Sodium 24 mmol/L Ur Random Potassium 7.2 mmol/L 10/03/16 10/03/16 Range/Units 21:35 20:01 WBC (4.8-10.8) K/uL RBC (4.40-5.90) Mil/uL Hgb (12.0-18.0) g/dL Hct (35.0-51.0) % MCV (80.0-94.0) fL MCH (27.0-31.0) pg MCHC (33.0-37.0) g/dL RDW (11.5-14.5) % Plt Count (130-400) K/uL MPV (7.2-11.7) fL Neut % (Auto) (50.0-75.0) % Lymph % (Auto) (20.0-40.0) % [place] % (Auto) (0.0-10.0) % Eos % (Auto) (0.0-4.0) % Baso % (Auto) (0.0-2.0) % Neut # (1.8-7.0) K/uL Lymph # (1.0-4.3) K/uL [place] # (0.0-0.8) K/uL Eos # (0.0-0.7) K/uL Baso # (0.0-0.2) K/uL Sodium 111 L* (132-148) mmol/L Potassium 3.7 (3.6-5.2) mmol/L Chloride 78 L (98-107) mmol/L Carbon Dioxide 21 L (22-30) mmol/L Anion Gap 16 (10-20) BUN 69 H (9-20) mg/dL Creatinine 3.0 H (0.8-1.5) MG/DL Est GFR ( Amer) 25 Est GFR (Non-Af Amer) 20 Random Glucose 96 (75-110) mg/dL Serum Osmolality (272-300) mosm/kg Uric Acid 7.1 (3.5-8.5) mg/dL Calcium 8.1 L (8.6-10.4) mg/dl Phosphorus (2.5-4.5) mg/dL Magnesium (1.6-2.3) mg/dL Iron (49-181) ug/dL TIBC (250-450) ug/dL % Saturation (20-55) Ferritin 147.0 ng/mL Total Bilirubin (0.2-1.3) mg/dL AST (17-59) U/L ALT (21-72) U/L Alkaline Phosphatase (38-126) U/L Total Protein (6.3-8.3) g/dL Albumin (3.5-5.0) g/dL Globulin (2.2-3.9) gm/dL Albumin/Globulin Ratio (1.0-2.1) TSH 3rd Generation 0.61 (0.46-4.68) mIU/L Cortisol AM Sample (4.46-22.7) ug/dL Urine Osmolality (300-1000) mosm/kg Ur Random Sodium mmol/L Ur Random Potassium mmol/L Laboratory Results - last 24 hr 10/03/16 10/03/16 10/03/16 20:01 21:35 21:35 WBC RBC Hgb Hct MCV MCH MCHC RDW Plt Count MPV Neut % (Auto) Lymph % (Auto) [place] % (Auto) Eos % (Auto) Baso % (Auto) Neut # Lymph # [place] # Eos # Baso # Sodium 111 L* Potassium 3.7 Chloride 78 L Carbon Dioxide 21 L Anion Gap 16 BUN 69 H Creatinine 3.0 H Est GFR ( Amer) 25 Est GFR (Non-Af Amer) 20 Random Glucose 96 Serum Osmolality 285 Uric Acid 7.1 Calcium 8.1 L Phosphorus Magnesium Iron TIBC % Saturation Ferritin 147.0 Total Bilirubin AST ALT Alkaline Phosphatase Total Protein Albumin Globulin Albumin/Globulin Ratio TSH 3rd Generation 0.61 Cortisol AM Sample Urine Osmolality Ur Random Sodium Ur Random Potassium 10/03/16 10/03/16 10/04/16 21:37 21:38 00:45 WBC RBC Hgb Hct MCV MCH MCHC RDW Plt Count MPV Neut % (Auto) Lymph % (Auto) [place] % (Auto) Eos % (Auto) Baso % (Auto) Neut # Lymph # [place] # Eos # Baso # Sodium 112 L* Potassium 3.8 Chloride 78 L Carbon Dioxide 22 Anion Gap 16 BUN 65 H Creatinine 2.9 H Est GFR ( Amer) 26 Est GFR (Non-Af Amer) 21 Random Glucose 94 Serum Osmolality Uric Acid Calcium 8.1 L Phosphorus Magnesium Iron 39 L TIBC 335 % Saturation 12 L Ferritin Total Bilirubin AST ALT Alkaline Phosphatase Total Protein Albumin Globulin Albumin/Globulin Ratio TSH 3rd Generation Cortisol AM Sample Urine Osmolality 181 L Ur Random Sodium 24 Ur Random Potassium 7.2 10/04/16 10/04/16 06:12 06:12 WBC 8.3 RBC 2.72 L Hgb 8.0 L Hct 23.2 L MCV 85.2 MCH 29.2 MCHC 34.3 RDW 15.2 H Plt Count 438 H MPV 7.2 Neut % (Auto) 81.2 H Lymph % (Auto) 9.1 L [place] % (Auto) 8.9 Eos % (Auto) 0.5 Baso % (Auto) 0.3 Neut # 6.7 Lymph # 0.8 L [place] # 0.7 Eos # 0.0 Baso # 0.0 Sodium 117 L* Potassium 4.1 Chloride 85 L Carbon Dioxide 22 Anion Gap 14 BUN 65 H Creatinine 2.7 H Est GFR ( Amer) 28 Est GFR (Non-Af Amer) 23 Random Glucose 92 Serum Osmolality Uric Acid Calcium 8.4 L Phosphorus 4.4 Magnesium 2.1 Iron TIBC % Saturation Ferritin Total Bilirubin 1.0 AST 37 ALT 26 Alkaline Phosphatase 80 Total Protein 5.9 L Albumin 3.4 L Globulin 2.5 Albumin/Globulin Ratio 1.4 TSH 3rd Generation Cortisol AM Sample 25.7 H Urine Osmolality Ur Random Sodium Ur Random Potassium Fingerstick Blood Sugar Results: 184 Critical Care Progress Note - Nutrition Nutrition: Nutrition Category Date Time Status NPO Diet [DIET] Diets 10/03/16 Breakfast Active
[2016-10-04 08:22] LABS: ANISOCYTOSIS SLIGHT; HYPOCHROMIC MODERATE; LYMPHOCYTE 6 % (20-40); MONOCYTE 6 % (0-10); NEUTROPHIL 88 % (50-75); NUCLEATED RED BLOOD CELL 1 % (0-0); PLATELET ESTIMATE SLIGHTLY INCREASED (NORMAL); POIKILOCYTOSIS SLIGHT; TARGET CELLS SLIGHT; TOTAL CELLS COUNTED 100
--- NOTE | 2016-10-04 09:10 | CP.PCM.PN ---
Subjective - Date & Time of Evaluation Date of Evaluation: 10/04/16 Time of Evaluation: 09:09 - Subjective Subjective: pt seen and examined, follow up consult is dictated #[id number] f/u bmp q 8 hrs x 24 hrs do not raise serum na more than 10-12 meq/24 hrs Objective - Vital Signs/Intake and Output Vital Signs (last 24 hours): Temp Pulse Resp BP Pulse Ox 98.1 F 88 19 147/68 99 10/04/16 08:00 10/04/16 08:02 10/04/16 08:02 10/04/16 08:02 10/04/16 08:02 Intake and Output: 10/04/16 10/04/16 06:59 18:59 Intake Total 1240 140 Output Total 2000 275 Balance -760 -135 - Medications Medications: Current Medications Epoetin Kyle (Procrit) 10,000 unit SC TTS [facility] Ferric Sodium Gluconate Complex (Ferrlecit) 125 mg IVPB DAILY [facility] Stop: 10/12/16 10:01 Finasteride (Proscar) 5 mg PO DAILY [facility] Gemfibrozil (Lopid) 600 mg PO DAILY [facility] Hydralazine HCl (Apresoline) 25 mg PO TID [facility] Sodium Chloride (Sodium Chloride 0.9%) 1,000 mls @ 70 mls/hr IV .[id number] [facility] Last Admin: 10/04/16 00:15 Dose: 70 mls/hr Pantoprazole Sodium (Protonix Inj) 40 mg IVP Q12H [facility] Last Admin: 10/04/16 00:25 Dose: 40 mg Tamsulosin HCl (Flomax) 0.4 mg PO DAILY JENNY - Labs Labs: 10/04/16 06:12 10/04/16 06:12 PT 10.7 SECONDS (9.7-12.2) 10/03/16 15:51 INR 1.0 10/03/16 15:51 APTT 27 SECONDS (21-34) 10/03/16 15:51
[2016-10-04] MEDS: EPOETIN ALFA 10,000 UNIT/ML ML SC SCH (09:51)
[2016-10-04] MEDS: Ferric Sodium Gluconat Complex 62.5 mg/5 ml Vial IVPB SCH (09:52)
[2016-10-04 16:33] LABS: CALCIUM 8.1 mg/dl (8.6-10.4)
--- NOTE | 2016-10-04 17:42 | HP ---
HISTORY OF PRESENT ILLNESS: A 76-year-old gentleman was brought in with a history of generali zed weakness, shortness of breath. He came to the Emergency Room, was found to have a sodium of 105, hemoglobin was 6.1 gram. The patient has a longstanding history of hypertension, diabetes, chronic kidney disease. The patient was admitted in June of this year and was found to have a creatinine of 2.5 and hemoglobin of 7.1. At that time his lab reports were normal. Serum iron, B12, folic acid w ere normal. Stool for occult blood was negative. Colonoscopy done about 6 years ago was unremarkabl e as per patient. The patient recently had an echocardiogram and a stress test done. The echocardio gram done in 08/2016 had shown normal LV size and EF was about 55% to 60%. No significant valvular h eart disease. Lexiscan done at the same time had shown no significant reversible changes. LVEF was normal. PERSONAL HISTORY: He does not smoke, does not drink. MEDICATIONS AT TIME OF DISCHARGE: Hydroxyzine 25 mg 3 times a day, Cardizem and were discontin ued. Lasix 20 mg. Procrit was started and multivitamin was given. He was on ADA diet. ALLERGIES: Denied. FAMILY HISTORY: Mother had diabetes, hypertension and a stroke. Brother has hypertrophic cardiomyop athy. PAST MEDICAL HISTORY: History of admitted for chronic kidney disease, anemia and severe arthritis pr oblem, walks around with a walker, sometimes in a wheelchair. PERSONAL HISTORY: Never smoked. No EtOH abuse. REVIEW OF SYSTEMS: GENERAL: Poor effort tolerance, severe fatigue. RESPIRATORY: Short of breath at rest on minimal exertion along with dizziness. EARS: No hearing loss. EYES: No visual disturbances. NECK: No swollen glands. PULMONARY: Negative for productive cough or hemoptysis. CARDIAC: No chest pain. Shortness of breath at rest and exertion. Edema is noted. Hypertension. No palpitation. GASTROINTESTINAL: Negative for hematemesis, no melena. GENITOURINARY: Frequency is noted. Urinary retention in the past. Was on the Fosamax. His last PS A was 5 and was evaluated by Dr. Montoya. MUSCULOSKELETAL: Back pain, knee pains, hip pains. VASCULAR SYSTEM: Negative for claudication, although has not been ambulating much. The patient was in rehab after discharge from here. NEUROLOGIC: Dizziness, but no syncope. No seizures. No TIAs. No CVAs. PHYSICAL EXAMINATION: GENERAL: Shows elderly gentleman who is conscious, alert, pale looking in no acute distress. He is 5 feet 6 inches and weight is about 240 pounds. VITAL SIGNS: His blood pressure is 120/70, heart rate of 106 and regular, respiratory rate of 20 and afebrile. HEENT: No neck vein distensions. No carotid bruits. NECK: Supple. MOUTH: No exudates. Partial dentures are noted. HEART: PMI is not localized. S1, S2 is distant and tachycardic. No gallops. LUNGS: Clear to auscultation bilaterally. EXTREMITIES: 1-2+ edema in both ankles. Distal pulses are feeble. ABDOMEN: Soft, nontender. EXTREMITIES: No cyanosis or clubbing. MUSCULOSKELETAL: Arthritis changes in both knees. NEUROLOGIC: The patient is awake, alert, oriented x 3. PSYCHIATRIC: No evidence of depression. SKIN: Appears pallor. LABORATORY DATA: Hemoglobin was 6.4, today is 8. Sodium was 105, today is 117. IMAGING: Chest x-ray was clear. Telemetry showed sinus tachycardia. His EKG had shown sinus tachyc ardia, otherwise unremarkable . ASSESSMENT: A 76-year-old gentleman with severe anemia, renal failure and hyponatremia. PLAN: Nephrology evaluation, transfusion and supportive care. We will observe the ICU. Care of plan was explained to the patient and the family who was at the bedside. All questions were answe red. Rigo Comer MD cc: [id number] TT: 10/04/2016 17:42:16 nj
[2016-10-05] MEDS: Sodium Chloride 0.9% 1,000 ML IV SCH ×2 (03:20→05:56)
--- NOTE | 2016-10-05 06:41 | PN ---
DATE: 10/04/2016 The patient is located in ICU bed 9. REQUESTED BY: Dr. Rigo Comer. REASON FOR RENAL CONSULTATION: Increased BUN and creatinine, CKD IV, anemia, severe hyponatremia and weakness. HISTORY OF PRESENT ILLNESS: The patient is a 76-year-old elderly [place] male with a history of longs tanding hypertension for 20 years; diabetes for 15 years, type 2; hyperlipidemia, chronic kidney dise ase, anemia; mild proteinuria, about half a gram in 24 hours from the previous admission, who was adm itted with chief complaints of feeling weak and tired and black stools and also history of fall x 3 w ithout any injury. Was brought to the hospital through EMS by his . The patient was also found to have urinary retention, status post Garay catheter placement and drained close to 2 liters in the Emergency Room. Now urine is clear; initially it was gross hematuria. The patient is feeling better , not in acute distress. Denies any headache, dizziness, and denies any chest pain, palpitations. D enies any fever, cough. The patient is slightly confused still. He knows he is in the hospital. He knows the month and year, but he does not know the day of the week and he does not know the date of the month. The patient is not in acute distress. PHYSICAL EXAMINATION: VITAL SIGNS: Blood pressure 147/68, pulse 88, respirations 19, temperature 98.1, and saturation 99% on 2 liters nasal cannula. Height 5 feet 7 inches and weight is 214 pounds. GENERAL: The patient is a 76-year-old elderly male, moderately built, moderately nourished, not in d istress. HEENT: Pupils normal, reactive to light and accommodation. Conjunctivae are pink. Sclerae anicteri c. Tongue is moist. NECK: Trachea midline. LUNGS: Symmetric on both sides. Bilateral breath sounds present. Clear on auscultation. CARDIOVASCULAR: [place] in the fifth intercostal space of midclavicular line. S1 and S2 audible. No m urmur or gallop. ABDOMEN: Normal in appearance, soft, tympanic. No guarding, no rigidity. No hepatosplenomegaly. CENTRAL NERVOUS SYSTEM: The patient is alert, awake, oriented x 2-3. Sensory and motor systems are grossly within normal limits. EXTREMITIES: No cyanosis, no clubbing. The patient has 1 to 2+ edema in both lower extremities. CURRENT MEDICATIONS: Include as follows: Hydralazine 25 mg p.o. t.i.d. and Ferrlecit 125 mg IV hafsa y, Flomax 0.4 mg p.o. daily and subcutaneous heparin 5000 q. 8 hours, Lopid 600 mg p.o. daily and __ __ 10,000 units 3 times a week, Proscar 5 mg p.o. daily and Protonix 40 mg IV q. 12 hours, and IV flu ids normal saline at 70 mL per hour. INTAKE AND OUTPUT: Include as follows in the last 24 hours: Intake is 1240 and output is 2 liters. LABORATORY DATA: Include as follows, as of 10/04/2016: WBC 8.3, hemoglobin 8.0, hematocrit is 23.2 and platelets are 438. Other laboratory data: Serum sodium is 117, potassium is 4.1, chloride 85, C O2 22, BUN 65, creatinine 2.7, glucose 92, calcium 8.4, phosphorus is 4.4, magnesium 2.1. Total bili 1.0, AST 37, ALT 26, alkaline phos was 80, total protein 5.9, albumin is 3.4 and serum cortisol is 2 5.7. Other laboratory data as of 10/03: TSH of 0.61. Iron is 39, TIBC 335, saturation is 12, and f erritin level is 147. Urine osmolality 181, urine sodium is 24, urine potassium is at 7.2. SUMMARY: The patient is a 76-year-old elderly [place] male with a history of longstanding diabetes, h ypertension, hyperlipidemia, chronic kidney disease, anemia with mild proteinuria, who was admitted w ith black stool, feeling weak and tired, and status post fall x 3 without injury, and low hemoglobin and hematocrit and low serum sodium, on strict low sodium diet, and bilateral leg swelling. 1. Hyponatremia, most likely secondary to hypotonic hypovolemic hyponatremia secondary to intravascu lar volume depletion. 2. Anemia, rule out gastrointestinal bleed. Most likely a combination of renal failure and iron def iciency, and cannot rule out gastrointestinal bleed. 3. Obstructive uropathy, status post Garay catheter placement with good urine output. PLAN: Continue his H2 blockers, continue Procrit and IV iron, and also continue Proscar and Flomax. We will check stool for occult blood and follow up with GI for possible EGD and colonoscopy. Hold c olchicine and consider allopurinol or Uloric for possible chronic gout. Avoid colchicine due to phillip l failure and anemia. Will follow with you. Thank you for allowing me to participate in your patient's care. Followup BMP q. 8 hours and try not to raise the serum sodium, not more than 10-12 mEq for 24 hours. Emir Kirk MD cc: [id number] TT: 10/04/2016 11:45:45 Confirmation # [id number] Dictation # [id number] mn
[2016-10-05 07:33] LABS: BASO # 0.1 K/uL (0.0-0.2); BASO % 0.8 % (0.0-2.0); EOS # 0.3 K/uL (0.0-0.7); HEMOGLOBIN 7.5 g/dL (12.0-18.0); LYMPH # 1.2 K/uL (1.0-4.3); LYMPH % 15.9 % (20.0-40.0); MEAN CELL VOLUME 86.9 fL (80.0-94.0); MEAN CORPUSCULAR HEMOGLOBIN 28.8 pg (27.0-31.0); MEAN CORPUSCULAR HGB CONC 33.1 g/dL (33.0-37.0); MEAN PLATELET VOLUME 7.5 fL (7.2-11.7); MONO # 0.7 K/uL (0.0-0.8); MONO % 9.5 % (0.0-10.0); NEUT # 5.1 K/uL (1.8-7.0); NEUT % 69.8 % (50.0-75.0); NRBC % 0.1 % (0.0-2.0); RBC 2.61 Mil/uL (4.40-5.90); RED CELL DISTRIBUTION WIDTH 15.7 % (11.5-14.5); WHITE BLOOD COUNT 7.4 K/uL (4.8-10.8)
[2016-10-05 07:55] LABS: ALB/GLOB RATIO 1.2 (1.0-2.1); AST/SGOT 32 U/L (17-59); BLOOD UREA NITROGEN 55 mg/dL (9-20); GFR AFRICAN-AMERICAN 24; GFR NON-AFRICAN AMERICAN 20
[2016-10-05 07:56] LABS: ALT/SGPT 25 U/L (21-72); CALCIUM 8.5 mg/dl (8.6-10.4); MAGNESIUM 2.2 mg/dL (1.6-2.3)
--- NOTE | 2016-10-05 09:32 | CP.PCM.PN ---
Subjective - Date & Time of Evaluation Date of Evaluation: 10/05/16 Time of Evaluation: 09:32 - Subjective Subjective: pt seen and examined, follow up consult is dictated #[id number] Objective - Vital Signs/Intake and Output Vital Signs (last 24 hours): Temp Pulse Resp BP Pulse Ox 98.4 F 95 H 20 122/65 98 10/05/16 08:00 10/05/16 08:00 10/05/16 08:00 10/05/16 08:00 10/05/16 08:00 Intake and Output: 10/05/16 10/05/16 06:59 18:59 Intake Total 1560 Output Total 1600 Balance -40 - Medications Medications: Current Medications Epoetin Kyle (Procrit) 10,000 unit SC TTS [facility] Last Admin: 10/04/16 09:51 Dose: 10,000 unit Ferric Sodium Gluconate Complex (Ferrlecit) 125 mg IVPB DAILY [facility] Stop: 10/12/16 10:01 Last Admin: 10/04/16 09:52 Dose: 125 mg Finasteride (Proscar) 5 mg PO DAILY [facility] Last Admin: 10/04/16 09:51 Dose: 5 mg Gemfibrozil (Lopid) 600 mg PO DAILY [facility] Last Admin: 10/04/16 09:51 Dose: 600 mg Heparin Sodium (Porcine) (Heparin) 5,000 units SC Q8 [facility] Last Admin: 10/05/16 05:55 Dose: 5,000 units Hydralazine HCl (Apresoline) 25 mg PO TID [facility] Last Admin: 10/04/16 17:39 Dose: 25 mg Sodium Chloride (Sodium Chloride 0.9%) 1,000 mls @ 70 mls/hr IV .[id number] [facility] Last Admin: 10/05/16 05:56 Dose: 70 mls/hr Pantoprazole Sodium (Protonix Inj) 40 mg IVP Q12H [facility] Last Admin: 10/04/16 22:06 Dose: 40 mg Tamsulosin HCl (Flomax) 0.4 mg PO DAILY [facility] Last Admin: 10/04/16 09:51 Dose: 0.4 mg - Labs Labs: 10/05/16 07:28 10/05/16 07:28 PT 10.7 SECONDS (9.7-12.2) 10/03/16 15:51 INR 1.0 10/03/16 15:51 APTT 27 SECONDS (21-34) 10/03/16 15:51
[2016-10-05] MEDS: Ferric Sodium Gluconat Complex 62.5 mg/5 ml Vial IVPB SCH (09:42)
--- NOTE | 2016-10-05 13:32 | CP.PCM.PN ---
Subjective - Date & Time of Evaluation Date of Evaluation: 10/05/16 Time of Evaluation: 13:30 - Subjective Subjective: weak,confused,disoriented.labs noted.diss with family. Objective - Vital Signs/Intake and Output Vital Signs (last 24 hours): Temp Pulse Resp BP Pulse Ox 98.4 F 95 H 20 122/65 98 10/05/16 08:00 10/05/16 08:00 10/05/16 08:00 10/05/16 08:00 10/05/16 08:00 Intake and Output: 10/05/16 10/05/16 06:59 18:59 Intake Total 1560 Output Total 1600 Balance -40 - Medications Medications: Current Medications Docusate Sodium (Colace) 100 mg PO BID [facility] Epoetin Kyle (Procrit) 10,000 unit SC TTS [facility] Last Admin: 10/04/16 09:51 Dose: 10,000 unit Ferric Sodium Gluconate Complex (Ferrlecit) 125 mg IVPB DAILY [facility] Stop: 10/12/16 10:01 Last Admin: 10/05/16 09:42 Dose: 125 mg Finasteride (Proscar) 5 mg PO DAILY [facility] Last Admin: 10/05/16 09:48 Dose: 5 mg Gemfibrozil (Lopid) 600 mg PO DAILY [facility] Last Admin: 10/05/16 09:42 Dose: 600 mg Heparin Sodium (Porcine) (Heparin) 5,000 units SC Q8 [facility] Last Admin: 10/05/16 05:55 Dose: 5,000 units Hydralazine HCl (Apresoline) 25 mg PO TID [facility] Last Admin: 10/05/16 09:41 Dose: 25 mg Sodium Chloride (Sodium Chloride 0.9%) 1,000 mls @ 70 mls/hr IV .[id number] [facility] Last Admin: 10/05/16 05:56 Dose: 70 mls/hr Lactulose (Enulose) 20 gm PO HS [facility] Pantoprazole Sodium (Protonix Inj) 40 mg IVP Q12H [facility] Last Admin: 10/05/16 10:04 Dose: Not Given Tamsulosin HCl (Flomax) 0.4 mg PO DAILY [facility] Last Admin: 10/05/16 09:41 Dose: 0.4 mg - Labs Labs: 10/05/16 07:28 10/05/16 07:28 PT 10.7 SECONDS (9.7-12.2) 10/03/16 15:51 INR 1.0 10/03/16 15:51 APTT 27 SECONDS (21-34) 10/03/16 15:51 - Constitutional Appears: No Acute Distress - Eye Exam Eye Exam: Normal appearance - Neck Exam Neck Exam: Normal Inspection - Respiratory Exam Respiratory Exam: Clear to Ausculation Bilateral - Cardiovascular Exam Cardiovascular Exam: REGULAR RHYTHM - GI/Abdominal Exam GI & Abdominal Exam: Soft - Neurological Exam Neurological Exam: Awake Assessment and Plan - Assessment and Plan (Free Text) Assessment: metabolic encephalopathy.anaemia,renal f/u noted.will need colon,foot md,ct head & neuro eval.
--- NOTE | 2016-10-05 15:16 | CP.PCM.CON ---
History of Present Illness - History of Present Illness History of Present Illness: Podiatry consult dictated . Patient has no acute podiatric issues. Debrided toenails with his present. Advise periodic podiatric treatment. Thank you Past Patient History - Past Medical History & Family History Past Medical History?: Yes - Past Social History Smoking Status: Former Smoker - CARDIAC Hx Hypertension: Yes - PULMONARY Other/Comment: former smoker, SOB with exertion - NEUROLOGICAL Hx Neurological Disorder: No - HEENT Hx HEENT Problems: No - RENAL Hx Chronic Kidney Disease: No - ENDOCRINE/METABOLIC Hx Endocrine Disorders: Yes Hx Diabetes Mellitus Type 2: Yes - HEMATOLOGICAL/ONCOLOGICAL Hx Blood Disorders: No - INTEGUMENTARY Hx Dermatological Problems: No - MUSCULOSKELETAL/RHEUMATOLOGICAL Hx Musculoskeletal Disorders: Yes Hx Falls: No Other/Comment: BLE weakness - GASTROINTESTINAL Hx Gastrointestinal Disorders: No - GENITOURINARY/GYNECOLOGICAL Hx Genitourinary Disorders: Yes Other/Comment: BPH - PSYCHIATRIC Hx Substance Use: No - SURGICAL HISTORY Hx Appendectomy: Yes - ANESTHESIA Hx Anesthesia: Yes Meds Allergies/Adverse Reactions: Allergies Allergy/AdvReac Type Severity Reaction Status Date / Time calcium carbonate [From Tums] Allergy Verified 10/03/16 14:29 dates Allergy Uncoded 10/03/16 14:29 - Medications Medications: Current Medications Docusate Sodium (Colace) 100 mg PO BID [facility] Epoetin Kyle (Procrit) 10,000 unit SC TTS [facility] Last Admin: 10/04/16 09:51 Dose: 10,000 unit Ferric Sodium Gluconate Complex (Ferrlecit) 125 mg IVPB DAILY [facility] Stop: 10/12/16 10:01 Last Admin: 10/05/16 09:42 Dose: 125 mg Finasteride (Proscar) 5 mg PO DAILY [facility] Last Admin: 10/05/16 09:48 Dose: 5 mg Gemfibrozil (Lopid) 600 mg PO DAILY [facility] Last Admin: 10/05/16 09:42 Dose: 600 mg Heparin Sodium (Porcine) (Heparin) 5,000 units SC Q8 [facility] Last Admin: 10/05/16 14:19 Dose: 5,000 units Hydralazine HCl (Apresoline) 25 mg PO TID [facility] Last Admin: 10/05/16 14:50 Dose: 25 mg Sodium Chloride (Sodium Chloride 0.9%) 1,000 mls @ 70 mls/hr IV .[id number] [facility] Last Admin: 10/05/16 05:56 Dose: 70 mls/hr Lactulose (Enulose) 20 gm PO HS [facility] Pantoprazole Sodium (Protonix Inj) 40 mg IVP Q12H [facility] Last Admin: 10/05/16 10:04 Dose: Not Given Tamsulosin HCl (Flomax) 0.4 mg PO DAILY [facility] Last Admin: 10/05/16 09:41 Dose: 0.4 mg Results - Vital Signs Recent Vital Signs: Last Vital Signs Temp 98.0 F 10/05/16 14:47 Pulse 92 H 10/05/16 14:47 Resp 20 10/05/16 14:47 BP 146/53 L 10/05/16 14:47 Pulse Ox 98 10/05/16 08:00 - Labs Result Diagrams: 10/05/16 07:28 10/05/16 07:28 Labs: Laboratory Results - last 24 hr 10/03/16 10/04/16 10/05/16 21:37 15:48 07:28 WBC 7.4 RBC 2.61 L Hgb 7.5 L Hct 22.7 L MCV 86.9 MCH 28.8 MCHC 33.1 RDW 15.7 H Plt Count 415 H MPV 7.5 Neut % (Auto) 69.8 Lymph % (Auto) 15.9 L [place] % (Auto) 9.5 Eos % (Auto) 4.0 Baso % (Auto) 0.8 Neut # 5.1 Lymph # 1.2 [place] # 0.7 Eos # 0.3 Baso # 0.1 Sodium 120 L* Potassium 4.0 Chloride 90 L Carbon Dioxide 22 Anion Gap 12 BUN 58 H Creatinine 2.7 H Est GFR ( Amer) 28 Est GFR (Non-Af Amer) 23 POC Glucose (mg/dL) Random Glucose 88 Calcium 8.1 L Phosphorus Magnesium Total Bilirubin AST ALT Alkaline Phosphatase Total Protein Albumin Globulin Albumin/Globulin Ratio Urine Chloride <15 L 10/05/16 10/05/16 07:28 11:18 WBC RBC Hgb Hct MCV MCH MCHC RDW Plt Count MPV Neut % (Auto) Lymph % (Auto) [place] % (Auto) Eos % (Auto) Baso % (Auto) Neut # Lymph # [place] # Eos # Baso # Sodium 124 L Potassium 4.2 Chloride 94 L Carbon Dioxide 22 Anion Gap 12 BUN 55 H Creatinine 3.1 H Est GFR ( Amer) 24 Est GFR (Non-Af Amer) 20 POC Glucose (mg/dL) 96 Random Glucose 77 Calcium 8.5 L Phosphorus 4.5 Magnesium 2.2 Total Bilirubin 0.5 AST 32 ALT 25 Alkaline Phosphatase 81 Total Protein 5.7 L Albumin 3.0 L Globulin 2.6 Albumin/Globulin Ratio 1.2 Urine Chloride
--- NOTE | 2016-10-05 16:10 | PN ---
DATE: 10/05/2016 The patient is located in room 358, bed B. REQUESTED BY: Dr. Rigo Comer REASON FOR FOLLOWUP: Hyponatremia and anemia. The patient is a 76-year-old elderly male with a history of longstanding hypertension, diabetes, hyperlipidemia, anemia, chronic kidney disease, was admitted with feeling weak, tired and black stool and low H and H and also found to have urinary retention, status post Garay catheter placement and drained about 2 liters. The patient was also found to have severe hyponatremia with a serum sodium about 108 and now, patient is on gentle IV hydration and serum sodium is gradually improving. Today, the serum sodium is 124. The patient is awake, knows he is in the [facility] and he knows the year and month, but not the date. The patient is not in acute distress, slightly confused, tried to pull the IV lines mittens. PHYSICAL EXAMINATION: VITAL SIGNS: As follows: Blood pressure 122/65, pulse 95, respirations 20, temperature 98.4, saturation 98%. Height 5 feet 7 inches and weight is 214 pounds. GENERAL: The patient is a 76-year-old elderly male, moderately built, moderately nourished, not in distress, slightly confused. HEENT: Pupils normal, react to light and accommodation. Conjunctivae pink. Sclerae anicteric. Tongue is moist. NECK: Trachea is midline. LUNGS: Symmetric on both sides. Bilateral breath sounds present. Clear on auscultation. CARDIOVASCULAR: [place] at the fifth intercostal space, midclavicular line. S1 and S2 audible. No murmur, no gallop. ABDOMEN: Normal in appearance. Soft, tympanic. No guarding, no rigidity, no hepatosplenomegaly. CENTRAL NERVOUS SYSTEM: The patient is alert, awake, oriented x 2. Sensory and motor systems grossly within normal limits. Cranial nerves II-XII grossly intact. EXTREMITIES: No cyanosis, no clubbing. The patient has 1+ edema in both lower extremities. CURRENT MEDICATIONS: Include as follows: Hydralazine 25 mg p.o. t.i.d., ferric gluconate 125 mg IV daily and Flomax 0.4 mg daily, subcutaneous heparin 5000 q. 8 hours, Lopid 600 mg p.o. daily, Procrit 10,000 units three times a week, Proscar 5 mg p.o. daily, Protonix 40 mg q. 12 hours and IV fluids normal saline at 70 mL per hour. LABORATORY DATA: Include as follows: As of 10/05/2016, WBC 7.4, hemoglobin 7.5 , hematocrit is 22.7 and platelets 415. Sodium 124, potassium 4.2, chloride 94 , CO2 22, , creatinine 3.1, glucose 77, calcium 8.5. LABORATORY DATA: Include as follows: Sodium 124, potassium 4.2, chloride 94, CO2 22,, creatinine 3.1 and calcium 8.5, phosphorus 4.5, magnesium 2.2, total bili 0.5, AST 32, ,alkaline phosphatase 81, total protein 5.7, albumin is 3. SUMMARY: The patient is a 76-year-old elderly male with history of hypertension , diabetes, hyperlipidemia, anemia, chronic kidney disease, was admitted with weakness and low H and H and low serum sodium, on gentle IV hydration. 1. Hyponatremia, most likely secondary to hypotonic hypovolemic hyponatremia. Serum sodium is improving gradually with gentle IV hydration. Continue IV hydration and monitor BMP every 8 hours. 2. Anemia, most likely secondary to renal failure and iron deficiency and cannot rule out gastrointestinal bleed. Follow up with GI and continue H2 blockers and consider to transfuse 1 more unit of packed red blood cells and consider CAT scan to rule out any stroke and also monitor Accu-Cheks. Will follow with you. Thank you for allowing me to participate in your patient' s care. Emir Kirk MD cc: [id number] TT: 10/05/2016 10:54:03 Confirmation # [id number] Dictation # [id number] MTDD
--- NOTE | 2016-10-05 16:58 | CP.PCM.CON ---
History of Present Illness - History of Present Illness History of Present Illness: This is a 76 year old man admitted with weakness. Patient was brought to the ER on 10/03/2016 with generalized weakness for three days. Evaluation in the ER showed anemia, HGB 6.4 and severe hyponatremia, sodium 108. Of note, the blood smear showed hypersegmented PMNs. A stool for occult blood was negative two months ago (07/19/2016). Family states that the stools are always dark secondary to iron supplements. He denies having bright red blood per rectum. Patient is confused, but denies having nausea, vomiting, abdominal pain, difficulty swallowing, heartburn, diarrhea or constipation. Review of Systems - Review of Systems All systems: reviewed and no additional remarkable complaints except - Constitutional Constitutional: Weakness - EENT Eyes: absent: Blurred Vision Ears: absent: Decreased Hearing - Cardiovascular Cardiovascular: Dyspnea, Dyspnea on Exertion - Respiratory Respiratory: absent: Cough, Hemoptysis - Gastrointestinal Gastrointestinal: absent: Abdominal Pain, Constipation, Diarrhea, Dysphagia, Heartburn, Hematochezia, Nausea, Vomiting - Genitourinary Genitourinary: Urinary Frequency - Musculoskeletal Musculoskeletal: Arthralgias Past Patient History - Past Medical History & Family History Past Medical History?: Yes - Past Social History Smoking Status: Former Smoker - CARDIAC Hx Hypertension: Yes - PULMONARY Other/Comment: former smoker, SOB with exertion - NEUROLOGICAL Hx Neurological Disorder: No - HEENT Hx HEENT Problems: No - RENAL Hx Chronic Kidney Disease: No - ENDOCRINE/METABOLIC Hx Endocrine Disorders: Yes Hx Diabetes Mellitus Type 2: Yes - HEMATOLOGICAL/ONCOLOGICAL Hx Blood Disorders: No - INTEGUMENTARY Hx Dermatological Problems: No - MUSCULOSKELETAL/RHEUMATOLOGICAL Hx Musculoskeletal Disorders: Yes Hx Falls: No Other/Comment: BLE weakness - GASTROINTESTINAL Hx Gastrointestinal Disorders: No - GENITOURINARY/GYNECOLOGICAL Hx Genitourinary Disorders: Yes Other/Comment: BPH - PSYCHIATRIC Hx Substance Use: No - SURGICAL HISTORY Hx Appendectomy: Yes - ANESTHESIA Hx Anesthesia: Yes Meds Allergies/Adverse Reactions: Allergies Allergy/AdvReac Type Severity Reaction Status Date / Time calcium carbonate [From Tums] Allergy Verified 10/03/16 14:29 dates Allergy Uncoded 10/03/16 14:29 - Medications Medications: Current Medications Docusate Sodium (Colace) 100 mg PO BID [facility] Epoetin Kyle (Procrit) 10,000 unit SC TTS [facility] Last Admin: 10/04/16 09:51 Dose: 10,000 unit Ferric Sodium Gluconate Complex (Ferrlecit) 125 mg IVPB DAILY [facility] Stop: 10/12/16 10:01 Last Admin: 10/05/16 09:42 Dose: 125 mg Finasteride (Proscar) 5 mg PO DAILY [facility] Last Admin: 10/05/16 09:48 Dose: 5 mg Gemfibrozil (Lopid) 600 mg PO DAILY [facility] Last Admin: 10/05/16 09:42 Dose: 600 mg Heparin Sodium (Porcine) (Heparin) 5,000 units SC Q8 [facility] Last Admin: 10/05/16 14:19 Dose: 5,000 units Hydralazine HCl (Apresoline) 25 mg PO TID [facility] Last Admin: 10/05/16 14:50 Dose: 25 mg Sodium Chloride (Sodium Chloride 0.9%) 1,000 mls @ 70 mls/hr IV .[id number] [facility] Last Admin: 10/05/16 05:56 Dose: 70 mls/hr Lactulose (Enulose) 20 gm PO HS [facility] Pantoprazole Sodium (Protonix Inj) 40 mg IVP Q12H [facility] Last Admin: 10/05/16 10:04 Dose: Not Given Tamsulosin HCl (Flomax) 0.4 mg PO DAILY [facility] Last Admin: 10/05/16 09:41 Dose: 0.4 mg Physical Exam - Constitutional Appears: No Acute Distress - Head Exam Head Exam: ATRAUMATIC, NORMOCEPHALIC - Eye Exam Eye Exam: EOMI, PERRL - Neck Exam Neck exam: Negative for: Lymphadenopathy, Thyromegaly - Respiratory Exam Respiratory Exam: NORMAL BREATHING PATTERN. absent: Rales, Rhonchi, Wheezes - Cardiovascular Exam Cardiovascular Exam: REGULAR RHYTHM, +S1, +S2. absent: Gallop, Rubs, Systolic Murmur - GI/Abdominal Exam GI & Abdominal Exam: Normal Bowel Sounds, Soft. absent: Mass, Organomegaly, Tenderness - Rectal Exam Rectal Exam: Deferred - Extremities Exam Extremities exam: Negative for: calf tenderness, tenderness Results - Vital Signs Recent Vital Signs: Last Vital Signs Temp 97.6 F 10/05/16 15:26 Pulse 90 10/05/16 15:26 Resp 20 10/05/16 15:26 BP 135/65 10/05/16 15:26 Pulse Ox 100 10/05/16 15:26 - Labs Result Diagrams: 10/05/16 07:28 10/05/16 07:28 Labs: Laboratory Results - last 24 hr 10/03/16 10/05/16 10/05/16 21:37 07:28 07:28 WBC 7.4 RBC 2.61 L Hgb 7.5 L Hct 22.7 L MCV 86.9 MCH 28.8 MCHC 33.1 RDW 15.7 H Plt Count 415 H MPV 7.5 Neut % (Auto) 69.8 Lymph % (Auto) 15.9 L [place] % (Auto) 9.5 Eos % (Auto) 4.0 Baso % (Auto) 0.8 Neut # 5.1 Lymph # 1.2 [place] # 0.7 Eos # 0.3 Baso # 0.1 Sodium 124 L Potassium 4.2 Chloride 94 L Carbon Dioxide 22 Anion Gap 12 BUN 55 H Creatinine 3.1 H Est GFR ( Amer) 24 Est GFR (Non-Af Amer) 20 POC Glucose (mg/dL) Random Glucose 77 Calcium 8.5 L Phosphorus 4.5 Magnesium 2.2 Total Bilirubin 0.5 AST 32 ALT 25 Alkaline Phosphatase 81 Total Protein 5.7 L Albumin 3.0 L Globulin 2.6 Albumin/Globulin Ratio 1.2 Urine Chloride <15 L 10/05/16 10/05/16 11:18 16:33 WBC RBC Hgb Hct MCV MCH MCHC RDW Plt Count MPV Neut % (Auto) Lymph % (Auto) [place] % (Auto) Eos % (Auto) Baso % (Auto) Neut # Lymph # [place] # Eos # Baso # Sodium Potassium Chloride Carbon Dioxide Anion Gap BUN Creatinine Est GFR ( Amer) Est GFR (Non-Af Amer) POC Glucose (mg/dL) 96 95 Random Glucose Calcium Phosphorus Magnesium Total Bilirubin AST ALT Alkaline Phosphatase Total Protein Albumin Globulin Albumin/Globulin Ratio Urine Chloride Assessment & Plan (1) Symptomatic anemia Assessment and Plan: Patient has symptomatic anemia, with normal MCV, hypersegmented polys on peripheral smear, and recent negative occult blood test on the stool. The clinical picture is most consistent with B12 deficiency perhaps with concomitant iron deficiency. Will check levels of B12 and folic acid. Consider EGD and colonoscopy which can be performed as an outpatient. Status: Acute
--- NOTE | 2016-10-05 17:42 | CON ---
DATE: 10/05/2016 HISTORY OF PRESENT ILLNESS: This 76-year-old male was admitted to [facility] with a chief complaint of weakness and dizziness. He was consulted podiatrically for his toenails, which his wif e said are elongated. PAST MEDICAL HISTORY: The patient has history of SOB and anemia and renal dysfunction. ALLERGIES: THE PATIENT HAS AN ALLERGY TO CALCIUM CARBONATE. SOCIAL HISTORY: He is a former smoker. Denies alcohol and drugs. REVIEW OF SYSTEMS: PULMONARY: Shortness of breath on exertion. NEUROLOGIC: Negative. HEMATOLOGIC: Negative. MUSCULOSKELETAL: Weakness. GASTROINTESTINAL: Negative. GENITOURINARY: Has a history of BPH. PSYCHIATRIC: Negative. SURGERY: History of appendectomy. CONSTITUTIONAL: Negative for fever. CARDIAC: Negative for chest pains. All other systems contributory to present complaint. PHYSICAL EXAMINATION: EXTREMITIES: Both feet are warm to touch. Pedal pulses are palpable. No ulcerations noted bilatera lly. Sensory perception is intact bilaterally. No interdigital maceration or irritations. Toenails are elongated. Hallux toenails are discolored and thickened with some pain on palpation. This is r outine podiatric care. Recommended no acute podiatric issues are involved. Recommend debridement of nails and podiatric care on a periodic basis. Thank you for allowing us to participate in the care of your patient. Lamin Urias DPM cc: [id number] TT: 10/05/2016 17:41:54 Confirmation # [id number] Dictation # [id number] ln
--- NOTE | 2016-10-05 17:54 | CON ---
DATE: 10/05/2016 NEUROLOGY CONSULTATION REASON FOR CONSULTATION: Confusion. HISTORY OF PRESENT ILLNESS: The patient is a 76-year-old male who was admitted to the hospital after he had generalized weakness and had black stools. The patient was noted to be confused in the hospi dian. As per his , the confusion started about 2 days ago when he got to the hospital. The patie nt unable to give history. History is mainly from the chart and the . As per , the patient does his own bills and does all the paperwork at home. However, for the last 2-3 days, she has notic ed him to be very confused. REVIEW OF SYSTEMS: Denies any headache, dizziness, chest pain, shortness of breath, abdominal pain, constipation, diarrhea, dysuria, cough, sputum production. PAST MEDICAL HISTORY: Includes hypercholesterolemia, benign prostatic hypertrophy, hypertension. MEDICATIONS AT HOME: Included Flomax, Lopid, Lasix, Proscar, Feosol, Vasotec and colchicine. CURRENT MEDICATIONS: Include hydralazine, Colace, lactulose 20 mg at bedtime, Flomax, Lopid, Procrit , Proscar, Protonix. ALLERGIES: CALCIUM CARBONATE. SOCIAL HISTORY: The patient is a former smoker. Denies use of any alcohol or illicit drugs. FAMILY HISTORY: Reviewed and noncontributory to the case. PHYSICAL EXAMINATION: GENERAL: The patient is an elderly male lying on the bed, in no acute distress. Hand mittens are on . VITAL SIGNS: His blood pressure is 130/71, heart rate is 90 per minute, breathing at a rate of 16 pe r minute, temperature is 98.2 degrees Fahrenheit. HEENT: Normocephalic, atraumatic. NECK: Supple. There are no carotid bruits. LUNGS: Clear. CARDIOVASCULAR: S1, S2 audible. No murmurs. ABDOMEN: Soft and nontender. Bowel sounds are present. NEUROLOGIC EXAMINATION: MENTAL STATUS: The patient is awake, alert. He does not know where he is, does not know the year or the month. He follows all simple commands. CRANIAL NERVES: Pupils are 3 mm bilaterally reactive to light. Visual kendrick are full. Extraocular movements are intact. There is no facial asymmetry. MOTOR: He is moving all 4 extremities symmetrically. Power appears to be 4/5 all over. Reflexes +1 and symmetrical. Plantars downgoing bilaterally. CEREBELLAR: No gross dysmetria is seen. LABORATORY DATA: Labs reviewed, shows WBC of 7.4, hemoglobin of 7.5, hematocrit 22.7 and platelets o f 415. Sodium today is 124, earlier it was 108 on 10/03/2016. Potassium is 4.2, chloride 94, carbon dioxide content 22, BUN of 55, creatinine of 3.1 and glucose of 77. IMPRESSION: Altered mental status, most likely secondary to metabolic encephalopathy, secondary to h yponatremia. Rule out any central etiology. RECOMMENDATIONS: 1. The patient to have MRI of the brain without contrast. 2. The patient also to have an electroencephalogram. 3. The patient had urinalysis, which shows WBC of less than 1 and nitrite negative. 4. Please correct the sodium slowly. 5. I will also obtain serum ammonia level. 6. Please continue other treatment and supportive care. Thank you for the opportunity to participate in the care of this patient. Jigna Cash MD cc: [id number] TT: 10/05/2016 17:53:47 Confirmation # [id number] Dictation # [id number] ln
[2016-10-05 21:36] LABS: GFR AFRICAN-AMERICAN 24; GFR NON-AFRICAN AMERICAN 20
[2016-10-05 21:37] LABS: BLOOD UREA NITROGEN 52 mg/dL (9-20); CALCIUM 8.6 mg/dl (8.6-10.4)
[2016-10-05 22:41] LABS: FOLATE > 20.0 ng/mL
--- NOTE | 2016-10-06 00:31 | CARD ---
APPROVED REPORT EKG Measurement Heart [id number] <Conclusion> Sinus tachycardia with 1st degree AV block with premature atrial complexes Low voltage QRS Borderline ECG
[2016-10-06 00:51] LABS: FOLATE > 20.0 ng/mL
[2016-10-06] MEDS: Sodium Chloride 0.9% 1,000 ML IV SCH ×2 (04:39→11:47)
[2016-10-06 08:01] LABS: BASO % 0.4 % (0.0-2.0); EOS # 0.2 K/uL (0.0-0.7); HEMOGLOBIN 8.5 g/dL (12.0-18.0); LYMPH # 0.9 K/uL (1.0-4.3); LYMPH % 12.4 % (20.0-40.0); MEAN CELL VOLUME 87.1 fL (80.0-94.0); MEAN CORPUSCULAR HEMOGLOBIN 29.6 pg (27.0-31.0); MEAN CORPUSCULAR HGB CONC 33.9 g/dL (33.0-37.0); MEAN PLATELET VOLUME 7.5 fL (7.2-11.7); MONO # 0.7 K/uL (0.0-0.8); MONO % 9.5 % (0.0-10.0); NEUT # 5.2 K/uL (1.8-7.0); NEUT % 74.7 % (50.0-75.0); NRBC % 0.1 % (0.0-2.0); RBC 2.86 Mil/uL (4.40-5.90); RED CELL DISTRIBUTION WIDTH 15.9 % (11.5-14.5)
[2016-10-06 08:18] LABS: ALBUMIN 2.9 g/dL (3.5-5.0)
[2016-10-06 08:21] LABS: ALB/GLOB RATIO 1.1 (1.0-2.1)
[2016-10-06 08:22] LABS: CALCIUM 8.7 mg/dl (8.6-10.4)
--- NOTE | 2016-10-06 09:34 | CT ---
PROCEDURE: CT HEAD WITHOUT CONTRAST. HISTORY: AMS COMPARISON: None available. TECHNIQUE: Axial computed tomography images were obtained through the head/brain without intravenous contrast. Radiation dose: Total exam DLP = 10/05/2016 mGy-cm. This CT exam was performed using one or more of the following dose reduction techniques: Automated exposure control, adjustment of the mA and/or kV according to patient size, and/or use of iterative reconstruction technique. FINDINGS: HEMORRHAGE: No acute parenchymal, subarachnoid nor extra-axial hemorrhage. BRAIN: Mild moderate diffuse/confluent chronic periventricular white matter ischemic changes seen extending peripherally into the deep and subcortical white matter both cerebral hemispheres. Additionally, there are a few scattered chronic appearing bilateral basal nuclei lacunar type infarcts. Note that the possibility of an small hyperacute infarct may not be appreciated on initial early CT imaging. Clinical correlation recommended to determine whether additional imaging is required. Moderate to fairly significant central volume loss evidenced by disproportionate enlargement of the ventricles compared the sulci. Vascular calcifications are present. VENTRICLES: Moderate-sized dilatation of the ventricular system likely due to central volume loss CALVARIUM: No acute calvarial fractures. PARANASAL SINUSES: Unremarkable as visualized. No significant inflammatory changes. MASTOID AIR CELLS: Unremarkable as visualized. No inflammatory changes. OTHER FINDINGS: None. IMPRESSION: No acute intracranial hemorrhage. Chronic white matter and scattered basal nuclei ischemic changes. Moderate to fairly significant central volume loss
[2016-10-06] MEDS: EPOETIN ALFA 10,000 UNIT/ML ML SC SCH (10:58)
[2016-10-06] MEDS: Ferric Sodium Gluconat Complex 62.5 mg/5 ml Vial IVPB SCH (11:14)
--- NOTE | 2016-10-06 14:53 | CP.PCM.PN ---
Subjective - Date & Time of Evaluation Date of Evaluation: 10/06/16 Time of Evaluation: 14:50 - Subjective Subjective: Mental status is unchanged. He had one light-colored stool today. He continues to deny having nausea, vomiting, abdominal pain. Hemoglobin is 8.5 today. Objective - Vital Signs/Intake and Output Vital Signs (last 24 hours): Temp Pulse Resp BP Pulse Ox 97.3 F L 85 20 159/83 H 97 10/06/16 08:00 10/06/16 13:54 10/06/16 08:00 10/06/16 13:54 10/06/16 13:54 Intake and Output: 10/06/16 10/06/16 06:59 18:59 Intake Total 1320 Output Total 1900 600 Balance -580 -600 - Medications Medications: Current Medications Docusate Sodium (Colace) 100 mg PO BID [facility] Last Admin: 10/06/16 10:57 Dose: 100 mg Epoetin Kyle (Procrit) 10,000 unit SC TTS [facility] Last Admin: 10/06/16 10:58 Dose: 10,000 unit Ferric Sodium Gluconate Complex (Ferrlecit) 125 mg IVPB DAILY [facility] Stop: 10/12/16 10:01 Last Admin: 10/05/16 09:42 Dose: 125 mg Finasteride (Proscar) 5 mg PO DAILY [facility] Last Admin: 10/06/16 10:58 Dose: 5 mg Gemfibrozil (Lopid) 600 mg PO DAILY [facility] Last Admin: 10/06/16 10:58 Dose: 600 mg Heparin Sodium (Porcine) (Heparin) 5,000 units SC Q8 [facility] Last Admin: 10/06/16 14:48 Dose: 5,000 units Hydralazine HCl (Apresoline) 25 mg PO TID [facility] Last Admin: 10/06/16 14:48 Dose: 25 mg Sodium Chloride (Sodium Chloride 0.9%) 1,000 mls @ 70 mls/hr IV .[id number] [facility] Last Admin: 10/06/16 11:47 Dose: Not Given Lactulose (Enulose) 20 gm PO HS [facility] Last Admin: 10/05/16 21:36 Dose: 20 gm Pantoprazole Sodium (Protonix Ec Tab) 40 mg PO Q12H [facility] Tamsulosin HCl (Flomax) 0.4 mg PO DAILY [facility] Last Admin: 10/06/16 10:57 Dose: 0.4 mg - Labs Labs: 10/06/16 07:39 10/06/16 07:39 PT 10.7 SECONDS (9.7-12.2) 10/03/16 15:51 INR 1.0 10/03/16 15:51 APTT 27 SECONDS (21-34) 10/03/16 15:51 - Constitutional Appears: No Acute Distress - Head Exam Head Exam: ATRAUMATIC, NORMOCEPHALIC - Eye Exam Eye Exam: EOMI, PERRL - Neck Exam Neck Exam: absent: Lymphadenopathy, Thyromegaly - Respiratory Exam Respiratory Exam: NORMAL BREATHING PATTERN. absent: Rales, Rhonchi, Wheezes - Cardiovascular Exam Cardiovascular Exam: REGULAR RHYTHM, +S1, +S2. absent: Gallop, Rubs, Murmur - GI/Abdominal Exam GI & Abdominal Exam: Soft, Normal Bowel Sounds. absent: Tenderness, Mass, Organomegaly - Rectal Exam Rectal Exam: Deferred - Extremities Exam Extremities Exam: absent: Calf Tenderness, Pedal Edema Assessment and Plan (1) Symptomatic anemia Assessment & Plan: The hemoglobin today is 8.5. Stool occult blood is positive. B12 and folic acid levels are high: B12 > 1000, folate > 20. Can schedule EGD and colonoscopy for Monday or as an outpatient. Status: Acute
--- NOTE | 2016-10-06 15:41 | CP.PCM.PN ---
Subjective - Date & Time of Evaluation Date of Evaluation: 10/06/16 Time of Evaluation: 15:39 - Subjective Subjective: less condfused. Objective - Vital Signs/Intake and Output Vital Signs (last 24 hours): Temp Pulse Resp BP Pulse Ox 97.3 F L 85 20 159/83 H 97 10/06/16 08:00 10/06/16 13:54 10/06/16 08:00 10/06/16 13:54 10/06/16 13:54 Intake and Output: 10/06/16 10/06/16 06:59 18:59 Intake Total 1320 Output Total 1900 600 Balance -580 -600 - Medications Medications: Current Medications Docusate Sodium (Colace) 100 mg PO BID [facility] Last Admin: 10/06/16 10:57 Dose: 100 mg Epoetin Kyle (Procrit) 10,000 unit SC TTS [facility] Last Admin: 10/06/16 10:58 Dose: 10,000 unit Ferric Sodium Gluconate Complex (Ferrlecit) 125 mg IVPB DAILY [facility] Stop: 10/12/16 10:01 Last Admin: 10/06/16 11:14 Dose: 125 mg Finasteride (Proscar) 5 mg PO DAILY [facility] Last Admin: 10/06/16 10:58 Dose: 5 mg Gemfibrozil (Lopid) 600 mg PO DAILY [facility] Last Admin: 10/06/16 10:58 Dose: 600 mg Heparin Sodium (Porcine) (Heparin) 5,000 units SC Q8 [facility] Last Admin: 10/06/16 14:48 Dose: 5,000 units Hydralazine HCl (Apresoline) 25 mg PO TID [facility] Last Admin: 10/06/16 14:48 Dose: 25 mg Sodium Chloride (Sodium Chloride 0.9%) 1,000 mls @ 70 mls/hr IV .[id number] [facility] Last Admin: 10/06/16 11:47 Dose: Not Given Lactulose (Enulose) 20 gm PO HS [facility] Last Admin: 10/05/16 21:36 Dose: 20 gm Pantoprazole Sodium (Protonix Ec Tab) 40 mg PO Q12H [facility] Tamsulosin HCl (Flomax) 0.4 mg PO DAILY [facility] Last Admin: 10/06/16 10:57 Dose: 0.4 mg - Labs Labs: 10/06/16 07:39 10/06/16 07:39 PT 10.7 SECONDS (9.7-12.2) 10/03/16 15:51 INR 1.0 10/03/16 15:51 APTT 27 SECONDS (21-34) 10/03/16 15:51 - Constitutional Appears: No Acute Distress - Eye Exam Eye Exam: Normal appearance - ENT Exam ENT Exam: Normal Exam - Respiratory Exam Respiratory Exam: Clear to Ausculation Bilateral - Cardiovascular Exam Cardiovascular Exam: REGULAR RHYTHM - GI/Abdominal Exam GI & Abdominal Exam: Soft - Extremities Exam Extremities Exam: absent: Pedal Edema - Neurological Exam Neurological Exam: Alert Assessment and Plan - Assessment and Plan (Free Text) Assessment: gi,neuro consult stephany.will transfuse one more unit.
[2016-10-06 19:49] LABS: CALCIUM 8.5 mg/dl (8.6-10.4)
--- NOTE | 2016-10-06 20:38 | CP.PCM.PN ---
Subjective - Date & Time of Evaluation Date of Evaluation: 10/06/16 Time of Evaluation: 20:38 - Subjective Subjective: pt seen and examined, follow up consult is dictated #[id number] 1.ckd-4 2.anemia 3.hyponaremia, na is 132-131 4.htn 5.AMS, r/o cva receiving 4 unit prbc f/u bmp, cbc in am Objective - Vital Signs/Intake and Output Vital Signs (last 24 hours): Temp Pulse Resp BP Pulse Ox 97.7 F 96 H 20 110/64 96 10/06/16 15:00 10/06/16 15:00 10/06/16 15:00 10/06/16 15:00 10/06/16 15:00 Intake and Output: 10/06/16 10/07/16 18:59 06:59 Output Total 600 Balance -600 - Medications Medications: Current Medications Docusate Sodium (Colace) 100 mg PO BID [facility] Last Admin: 10/06/16 17:34 Dose: 100 mg Epoetin Kyle (Procrit) 10,000 unit SC TTS [facility] Last Admin: 10/06/16 10:58 Dose: 10,000 unit Ferric Sodium Gluconate Complex (Ferrlecit) 125 mg IVPB DAILY [facility] Stop: 10/12/16 10:01 Last Admin: 10/06/16 11:14 Dose: 125 mg Finasteride (Proscar) 5 mg PO DAILY [facility] Last Admin: 10/06/16 10:58 Dose: 5 mg Gemfibrozil (Lopid) 600 mg PO DAILY [facility] Last Admin: 10/06/16 10:58 Dose: 600 mg Heparin Sodium (Porcine) (Heparin) 5,000 units SC Q8 [facility] Last Admin: 10/06/16 14:48 Dose: 5,000 units Hydralazine HCl (Apresoline) 25 mg PO TID [facility] Last Admin: 10/06/16 17:34 Dose: 25 mg Sodium Chloride (Sodium Chloride 0.9%) 1,000 mls @ 70 mls/hr IV .[id number] [facility] Last Admin: 10/06/16 11:47 Dose: Not Given Lactulose (Enulose) 20 gm PO HS [facility] Last Admin: 10/05/16 21:36 Dose: 20 gm Pantoprazole Sodium (Protonix Ec Tab) 40 mg PO Q12H [facility] Tamsulosin HCl (Flomax) 0.4 mg PO DAILY [facility] Last Admin: 10/06/16 10:57 Dose: 0.4 mg - Labs Labs: 10/06/16 07:39 10/06/16 19:30 PT 10.7 SECONDS (9.7-12.2) 10/03/16 15:51 INR 1.0 10/03/16 15:51 APTT 27 SECONDS (21-34) 10/03/16 15:51
[2016-10-06] MEDS: Pantoprazole 40 mg EC Tab PO SCH (21:16)
--- NOTE | 2016-10-06 23:26 | PN ---
DATE: 10/06/2016 LOCATION: The patient is located in room 358, bed B. REQUESTED BY: Dr. Rigo Comer. REASON FOR RENAL CONSULTATION: Chronic kidney disease, hyponatremia, altered mental status for further evaluation. HISTORY OF PRESENT ILLNESS: The patient is a 76-year-old elderly male with a past medical history significant for long-standing hypertension, diabetes , hyperlipidemia, chronic kidney disease, anemia, who was admitted with generalized weakness and status post fall x 3 without any injuries in the house , was admitted with black stool and low H and H and a low serum sodium of 108. The patient is being treated for hypotonic hypovolemic hyponatremia. Serum sodium is slowly improving. Now serum sodium is 131-132. The patient is not in acute distress. The patient was given Ativan prior to the MRI scan this evening. The patient is sleeping, tried to open eyes to verbal stimuli, not in distress. PHYSICAL EXAMINATION: VITAL SIGNS: Blood pressure 110/64, pulse 96, respirations 20, temperature 97.7 , saturation 96%. Height 5 feet 7 inches and weight is 214 pounds. GENERAL: The patient is a 76-year-old elderly male, moderately built, moderately nourished, not in acute distress. HEENT: Pupils normal, reactive to light and accommodation. Conjunctivae pink. Sclerae anicteric. Tongue is moist. NECK: Trachea is midline. LUNGS: Symmetric on both sides. Bilateral breath sounds present. Clear on auscultation. CARDIOVASCULAR: [place] in the fifth intercostal space midclavicular line. S1 and S2 audible. No murmur or gallop. ABDOMEN: Normal in appearance, protuberant, soft, tympanic. No guarding, no rigidity. No hepatosplenomegaly. CENTRAL NERVOUS SYSTEM: The patient is very drowsy and tried to open eyes to verbal stimuli. EXTREMITIES: No cyanosis, no clubbing. Trace edema in both lower extremities. CURRENT MEDICATIONS: Include as follows: Hydralazine 25 mg p.o. t.i.d., Colace 100 mg p.o. b.i.d., gluconate 125 mg IV daily, Flomax 0.4 mg p.o. daily, subcutaneous heparin 5000 q. 8 hours, Lopid 600 mg p.o. daily, Procrit 10,000 units subQ 3 times a week, Proscar 5 mg p.o. daily, Protonix 40 mg p.o. q. 12 hours, normal saline at 70 mL per hour. LABORATORY DATA: Include as follows: As of 10/06/2016: WBC 7, hemoglobin 8.5 , hematocrit is 24.9, platelets 384. Sodium 132, potassium 4.3, chloride 103, CO2 21, BUN 35, creatinine 3.0 and glucose is 82, calcium 8.7, total bili 0.5, AST 28, ALT 21, alkaline phosphatase is 80, total protein 5.7, albumin is 2.9. Repeat BMP at 1930 hours, sodium 131, potassium 4.6, chloride 104, CO2 20, BUN 42, creatinine 2.8, glucose 109, calcium 8.5. MRSA screening was negative x 2 and urine culture was negative from 10/03/2016. Other reports: CT of the head as of 10/05/2016: Impression: No acute intracranial hemorrhage, chronic white matter and scattered basal nuclei ischemic changes, moderate to fairly significant central volume loss, brain mild to moderate diffuse chronic periventricular white matter ischemic changes seen extending peripherally into the deep and subcortical white matter of both cerebral hemispheres. Additionally, there are a few scattered chronic appearing bilateral basal nuclei lacunar type infarcts. Note that the possibility of a small hyperacute infarct may not be appreciated on early CT imaging. Clinical correlation recommended to determine whether additional study is required. As of 2016, MRI of the brain report is pending. SUMMARY: The patient is a 76-year-old elderly male with a history of hypertension, diabetes, hyperlipidemia, anemia, chronic kidney disease, benign prostatic hyperplasia with obstructive uropathy, was admitted with hyponatremia and low H and H and also black stool and status post transfusion of 3 units so far and receiving 40 units today. The patient received 2 units in ICU and 1 unit yesterday and 40 units today packed RBC. ASSESSMENT AND PLAN: 1. Chronic kidney disease stage IV, most likely secondary to hypertensive nephrosclerosis. 2. Anemia, most likely multifactorial, chronic kidney disease, , fe deficiency and cannot rule out gastrointestinal bleed. 3. Hyponatremia secondary to hypotonic hypovolemic hyponatremia and also low sodium intake. Serum sodium improved gradually to 131 since admission. 4. Altered mental status and confusion from time to time. Rule out or CVA. Follow up MRI of the brain report, follow with neurology and also follow up with GI for possible esophagogastroduodenoscopy and colonoscopy when clinically stable. Follow up H and H and BMP in a.m. Will follow with you. Thank you for allowing me to participate in your patient's care. Stool for occult blood was positive on admission 10/03/2016. Emir Kirk MD cc: [id number] TT: 10/06/2016 23:25:49 Confirmation # [id number] Dictation # [id number] mn MTDD
[2016-10-07] MEDS: Sodium Chloride 0.9% 1,000 ML IV SCH (05:57)
--- NOTE | 2016-10-07 06:28 | CP.PCM.PN ---
Subjective - Date & Time of Evaluation Date of Evaluation: 10/07/16 Time of Evaluation: 06:27 - Subjective Subjective: Patient seen. clinically improving. Nonew symptoms Objective - Vital Signs/Intake and Output Vital Signs (last 24 hours): Temp Pulse Resp BP Pulse Ox 97.8 F 78 20 142/80 98 10/07/16 00:20 10/07/16 00:20 10/07/16 00:20 10/07/16 00:20 10/06/16 23:41 Intake and Output: 10/06/16 10/07/16 18:59 06:59 Intake Total 825 Output Total 600 500 Balance -600 325 - Medications Medications: Current Medications Docusate Sodium (Colace) 100 mg PO BID [facility] Last Admin: 10/06/16 17:34 Dose: 100 mg Epoetin Kyle (Procrit) 10,000 unit SC TTS [facility] Last Admin: 10/06/16 10:58 Dose: 10,000 unit Ferric Sodium Gluconate Complex (Ferrlecit) 125 mg IVPB DAILY [facility] Stop: 10/12/16 10:01 Last Admin: 10/06/16 11:14 Dose: 125 mg Finasteride (Proscar) 5 mg PO DAILY [facility] Last Admin: 10/06/16 10:58 Dose: 5 mg Gemfibrozil (Lopid) 600 mg PO DAILY [facility] Last Admin: 10/06/16 10:58 Dose: 600 mg Heparin Sodium (Porcine) (Heparin) 5,000 units SC Q8 [facility] Last Admin: 10/07/16 05:59 Dose: 5,000 units Hydralazine HCl (Apresoline) 25 mg PO TID [facility] Last Admin: 10/06/16 17:34 Dose: 25 mg Sodium Chloride (Sodium Chloride 0.9%) 1,000 mls @ 70 mls/hr IV .[id number] [facility] Last Admin: 10/07/16 05:57 Dose: 70 mls/hr Lactulose (Enulose) 20 gm PO HS [facility] Last Admin: 10/06/16 21:16 Dose: 20 gm Pantoprazole Sodium (Protonix Ec Tab) 40 mg PO Q12H [facility] Last Admin: 10/06/16 21:16 Dose: 40 mg Tamsulosin HCl (Flomax) 0.4 mg PO DAILY [facility] Last Admin: 10/06/16 10:57 Dose: 0.4 mg - Labs Labs: 10/06/16 07:39 10/06/16 19:30 PT 10.7 SECONDS (9.7-12.2) 10/03/16 15:51 INR 1.0 10/03/16 15:51 APTT 27 SECONDS (21-34) 10/03/16 15:51 - Constitutional Appears: Well - Head Exam Head Exam: ATRAUMATIC - Neck Exam Neck Exam: Full ROM - Respiratory Exam Respiratory Exam: NORMAL BREATHING PATTERN - Cardiovascular Exam Cardiovascular Exam: REGULAR RHYTHM - GI/Abdominal Exam GI & Abdominal Exam: Normal Bowel Sounds - Back Exam Back Exam: NORMAL INSPECTION - Neurological Exam Neurological Exam: Alert, Oriented x3 - Skin Skin Exam: Normal Color Assessment and Plan (1) Symptomatic anemia Assessment & Plan: Multifactorial: 2* CKD , R/O GI blood loss .. Stool Occult Positive\ Continue IV IRON and Procrit.. will follow Status: Acute
[2016-10-07 08:12] LABS: BASO # 0.1 K/uL (0.0-0.2); BASO % 0.8 % (0.0-2.0); EOS # 0.3 K/uL (0.0-0.7); EOS % 4.7 % (0.0-4.0); HEMOGLOBIN 9.4 g/dL (12.0-18.0); LYMPH # 1.1 K/uL (1.0-4.3); LYMPH % 15.1 % (20.0-40.0); MEAN CORPUSCULAR HEMOGLOBIN 29.5 pg (27.0-31.0); MEAN CORPUSCULAR HGB CONC 33.5 g/dL (33.0-37.0); MONO # 0.7 K/uL (0.0-0.8); MONO % 9.2 % (0.0-10.0); NEUT % 70.2 % (50.0-75.0); NRBC % 0.2 % (0.0-2.0); RBC 3.19 Mil/uL (4.40-5.90); RED CELL DISTRIBUTION WIDTH 15.7 % (11.5-14.5); WHITE BLOOD COUNT 7.1 K/uL (4.8-10.8)
[2016-10-07 08:56] LABS: ALBUMIN 2.9 g/dL (3.5-5.0); IRON 67 ug/dL (49-181)
[2016-10-07 08:58] LABS: GFR AFRICAN-AMERICAN 28; GFR NON-AFRICAN AMERICAN 23
[2016-10-07 08:59] LABS: ALT/SGPT 30 U/L (21-72); AST/SGOT 34 U/L (17-59); BLOOD UREA NITROGEN 36 mg/dL (9-20); CALCIUM 8.6 mg/dl (8.6-10.4)
[2016-10-07 09:07] LABS: % IRON SATURATION 24 (20-55); TOTAL IRON BINDING CAPACITY 278 ug/dL (250-450)
[2016-10-07] MEDS: Pantoprazole 40 mg EC Tab PO SCH ×2 (10:00→22:53)
--- NOTE | 2016-10-07 10:11 | MRI ---
PROCEDURE: MRI BRAIN WITHOUT CONTRAST HISTORY: ams COMPARISON: Comparison made with prior CT scan brain 10/05/2016. TECHNIQUE: Multiplanar, multisequence MR images of the brain were obtained without intravenous contrast enhancement. Study limited by motion artifact. FINDINGS: HEMORRHAGE: No acute parenchymal, subarachnoid or extra-axial hemorrhage. No obvious hemosiderin deposits noted on gradient echo weighted sequence. DWI: No evidence of an acute or early subacute infarction seen on diffusion imaging. . BRAIN PARENCHYMA: There appears be some very mild the chronic confluent periventricular white matter ischemic changes with scattered smaller chronic appearing lacunar type infarcts about the deep and subcortical white matter of both cerebral hemispheres. Suspect few small brainstem chronic appearing lacunar type infarcts. Moderate central volume loss evidenced by disproportionate enlargement of the ventricles as compared sulci. . VENTRICLES: Enlarged ventricles felt to be on ex vacuo basis. . Normal pressure hydrocephalus is less likely however should be considered if this clinical triad of dementia, ataxia and incontinence present. CRANIUM: There are no acute calvarial fractures so far as can be seen ORBITS: Changes of bilateral cataract surgery. PARANASAL SINUSES/MASTOIDS: Minor mucosal thickening in the few ethmoid air cells less well seen compared. Partial opacification right mastoid air complex. VASCULAR SYSTEM: Visualized major vascular flow voids at skull base are patent. OTHER FINDINGS: None. IMPRESSION: Limited study to significant motion artifact the imaged or infarct so far as can be seen given limitation of the exam. Mild chronic white matter, basal nuclei and brainstem ischemic changes as above. Moderate central volume loss.
[2016-10-07] MEDS: Ferric Sodium Gluconat Complex 62.5 mg/5 ml Vial IVPB SCH (11:10)
--- NOTE | 2016-10-07 12:04 | CP.PCM.PN ---
Subjective - Date & Time of Evaluation Date of Evaluation: 10/07/16 Time of Evaluation: 12:04 - Subjective Subjective: pt seen and examined, follow up consult is dictated #[id number] serum na is stable Objective - Vital Signs/Intake and Output Vital Signs (last 24 hours): Temp Pulse Resp BP Pulse Ox 97.8 F 78 20 142/80 98 10/07/16 00:20 10/07/16 00:20 10/07/16 00:20 10/07/16 00:20 10/06/16 23:41 Intake and Output: 10/07/16 10/07/16 06:59 18:59 Intake Total 1385 Output Total 900 Balance 485 - Medications Medications: Current Medications Docusate Sodium (Colace) 100 mg PO BID [facility] Last Admin: 10/07/16 10:00 Dose: 100 mg Epoetin Kyle (Procrit) 10,000 unit SC TTS [facility] Last Admin: 10/06/16 10:58 Dose: 10,000 unit Ferric Sodium Gluconate Complex (Ferrlecit) 125 mg IVPB DAILY [facility] Stop: 10/12/16 10:01 Last Admin: 10/07/16 11:10 Dose: 125 mg Finasteride (Proscar) 5 mg PO DAILY [facility] Last Admin: 10/07/16 10:00 Dose: 5 mg Gemfibrozil (Lopid) 600 mg PO DAILY [facility] Last Admin: 10/07/16 10:00 Dose: 600 mg Hydralazine HCl (Apresoline) 25 mg PO TID [facility] Last Admin: 10/07/16 10:00 Dose: 25 mg Sodium Chloride (Sodium Chloride 0.9%) 1,000 mls @ 70 mls/hr IV .[id number] [facility] Last Admin: 10/07/16 05:57 Dose: 70 mls/hr Lactulose (Enulose) 20 gm PO HS [facility] Last Admin: 10/06/16 21:16 Dose: 20 gm Pantoprazole Sodium (Protonix Ec Tab) 40 mg PO Q12H [facility] Last Admin: 10/07/16 10:00 Dose: 40 mg Tamsulosin HCl (Flomax) 0.4 mg PO DAILY [facility] Last Admin: 10/07/16 10:00 Dose: 0.4 mg - Labs Labs: 10/07/16 08:04 10/07/16 08:04 PT 10.7 SECONDS (9.7-12.2) 10/03/16 15:51 INR 1.0 10/03/16 15:51 APTT 27 SECONDS (21-34) 10/03/16 15:51
--- NOTE | 2016-10-07 12:17 | CP.PCM.PN ---
Subjective - Date & Time of Evaluation Date of Evaluation: 10/07/16 Time of Evaluation: 12:16 - Subjective Subjective: less confused. Objective - Vital Signs/Intake and Output Vital Signs (last 24 hours): Temp Pulse Resp BP Pulse Ox 97.8 F 78 20 142/80 98 10/07/16 00:20 10/07/16 00:20 10/07/16 00:20 10/07/16 00:20 10/06/16 23:41 Intake and Output: 10/07/16 10/07/16 06:59 18:59 Intake Total 1385 Output Total 900 Balance 485 - Medications Medications: Current Medications Docusate Sodium (Colace) 100 mg PO BID [facility] Last Admin: 10/07/16 10:00 Dose: 100 mg Epoetin Kyle (Procrit) 10,000 unit SC TTS [facility] Last Admin: 10/06/16 10:58 Dose: 10,000 unit Ferric Sodium Gluconate Complex (Ferrlecit) 125 mg IVPB DAILY [facility] Stop: 10/12/16 10:01 Last Admin: 10/07/16 11:10 Dose: 125 mg Finasteride (Proscar) 5 mg PO DAILY [facility] Last Admin: 10/07/16 10:00 Dose: 5 mg Gemfibrozil (Lopid) 600 mg PO DAILY [facility] Last Admin: 10/07/16 10:00 Dose: 600 mg Hydralazine HCl (Apresoline) 25 mg PO TID [facility] Last Admin: 10/07/16 10:00 Dose: 25 mg Sodium Chloride (Sodium Chloride 0.9%) 1,000 mls @ 70 mls/hr IV .[id number] [facility] Last Admin: 10/07/16 05:57 Dose: 70 mls/hr Lactulose (Enulose) 20 gm PO HS [facility] Last Admin: 10/06/16 21:16 Dose: 20 gm Pantoprazole Sodium (Protonix Ec Tab) 40 mg PO Q12H [facility] Last Admin: 10/07/16 10:00 Dose: 40 mg Tamsulosin HCl (Flomax) 0.4 mg PO DAILY [facility] Last Admin: 10/07/16 10:00 Dose: 0.4 mg - Labs Labs: 10/07/16 08:04 10/07/16 08:04 PT 10.7 SECONDS (9.7-12.2) 10/03/16 15:51 INR 1.0 10/03/16 15:51 APTT 27 SECONDS (21-34) 10/03/16 15:51 - Constitutional Appears: No Acute Distress - Eye Exam Eye Exam: Normal appearance - Respiratory Exam Respiratory Exam: Clear to Ausculation Bilateral - Cardiovascular Exam Cardiovascular Exam: REGULAR RHYTHM - GI/Abdominal Exam GI & Abdominal Exam: Soft - Extremities Exam Extremities Exam: absent: Pedal Edema - Neurological Exam Neurological Exam: Alert, Oriented x3 Assessment and Plan - Assessment and Plan (Free Text) Assessment: mri,labs, all ok.will d/c iv & restrains.pt.colon
--- NOTE | 2016-10-07 19:03 | CP.PCM.PN ---
Subjective - Date & Time of Evaluation Date of Evaluation: 10/07/16 Time of Evaluation: 19:00 - Subjective Subjective: Patient is on clear liquid diet. He denies having nausea, vomiting, abdominal pain. Family said he had two formed bowel movements today. Objective - Vital Signs/Intake and Output Vital Signs (last 24 hours): Temp Pulse Resp BP Pulse Ox 97.8 F 78 20 142/80 97 10/07/16 00:20 10/07/16 18:28 10/07/16 00:20 10/07/16 18:28 10/07/16 18:28 - Medications Medications: Current Medications Bisacodyl (Dulcolax) 10 mg PO ONCE ONE Stop: 10/09/16 17:01 Epoetin Kyle (Procrit) 10,000 unit SC TTS [facility] Last Admin: 10/06/16 10:58 Dose: 10,000 unit Ferric Sodium Gluconate Complex (Ferrlecit) 125 mg IVPB DAILY [facility] Stop: 10/12/16 10:01 Last Admin: 10/07/16 11:10 Dose: 125 mg Finasteride (Proscar) 5 mg PO DAILY [facility] Last Admin: 10/07/16 10:00 Dose: 5 mg Gemfibrozil (Lopid) 600 mg PO DAILY [facility] Last Admin: 10/07/16 10:00 Dose: 600 mg Hydralazine HCl (Apresoline) 25 mg PO TID [facility] Last Admin: 10/07/16 17:45 Dose: 25 mg Pantoprazole Sodium (Protonix Ec Tab) 40 mg PO Q12H [facility] Last Admin: 10/07/16 10:00 Dose: 40 mg Polyethylene Glycol/Electrolytes (Golytely) 4,000 ml PO ONCE ONE Stop: 10/09/16 19:01 Tamsulosin HCl (Flomax) 0.4 mg PO DAILY [facility] Last Admin: 10/07/16 10:00 Dose: 0.4 mg - Labs Labs: 10/07/16 08:04 10/07/16 08:04 PT 10.7 SECONDS (9.7-12.2) 10/03/16 15:51 INR 1.0 10/03/16 15:51 APTT 27 SECONDS (21-34) 10/03/16 15:51 - Constitutional Appears: No Acute Distress - Head Exam Head Exam: ATRAUMATIC, NORMOCEPHALIC - Eye Exam Eye Exam: EOMI, PERRL - Neck Exam Neck Exam: absent: Lymphadenopathy, Thyromegaly - Respiratory Exam Respiratory Exam: NORMAL BREATHING PATTERN. absent: Rales, Rhonchi, Wheezes - Cardiovascular Exam Cardiovascular Exam: REGULAR RHYTHM, +S1, +S2. absent: Gallop, Rubs, Murmur - GI/Abdominal Exam GI & Abdominal Exam: Distended, Soft, Normal Bowel Sounds. absent: Tenderness, Mass, Organomegaly - Rectal Exam Rectal Exam: Deferred - Extremities Exam Extremities Exam: absent: Calf Tenderness, Pedal Edema Assessment and Plan (1) Symptomatic anemia Assessment & Plan: Hemoglobin is up to 9.4 today. He has been cleared for colonoscopy, and this will be scheduled for Monday. Status: Acute
--- NOTE | 2016-10-07 21:45 | PN ---
DATE: 10/07/2016 The patient is located in room 358, bed B. REQUESTED BY: Dr. Rigo Comer. REASON FOR RENAL CONSULTATION: CKD 4, hyponatremia and altered mental status. HISTORY OF PRESENT ILLNESS: The patient is a 76-year-old elderly obese [place] male with a history of longstanding hypertension, diabetes, hyperlipidemia, chronic kidney disease, anemia, was admitted with a chief complaint of generalized weakness, status post fall x 3 without any injury, generalized weakness, low H and H and low serum sodium and increased BUN and creatinine. The patient was found to have hyponatremia with hypotonic, hypovolemic, hyponatremia. Started on IV fluids, normal saline, with gradual improvement of the serum sodium. The patient is more alert, awake, and following commands appropriately, not in distress. PHYSICAL EXAMINATION: VITAL SIGNS: This morning as follows: Blood pressure 142/80, pulse 78, respirations 20, temperature 97.8, saturation 97%, height 5 feet 7 inches and weight is 214 pounds. GENERAL: The patient is a 76-year-old elderly male, well built, well nourished , not in acute distress. HEENT: Pupils normal, reactive to light and accommodation. Conjunctivae pink. Sclerae anicteric. Tongue is moist. NECK: Trachea midline. LUNGS: Symmetric on both sides. Bilateral breath sounds present. Clear on auscultation. CARDIOVASCULAR: [place] at the fifth intercostal space midclavicular line. S1 and S2 audible. No murmur or gallop. ABDOMEN: Normal in appearance, soft, tympanic. No guarding, no rigidity. No hepatosplenomegaly. Abdomen is slightly protuberant. CENTRAL NERVOUS SYSTEM: The patient is alert, awake, oriented x 2-3. Sensory and motor system is grossly within normal limits. EXTREMITIES: No cyanosis, no clubbing, no edema. CURRENT MEDICATIONS: Include as follows: Hydralazine 25 mg p.o. t.i.d., and Dulcolax 10 mg p.o., ferric gluconate 125 mg daily, Flomax 0.4 mg p.o. daily, Lopid 600 mg p.o. daily, Procrit 10,000 units 3 times a week, Proscar 5 mg p.o. daily, Protonix 40 mg p.o. q. 12 hours. LABORATORY DATA: Includes as follows: As of 10/07/2016, WBC 7.1, hemoglobin 9.4, hematocrit is 28.1, MCV 88, platelets 369. Sodium 132, potassium 4.6, chloride 102, CO2 20, BUN 36, creatinine 2.7, and glucose is 126. Calcium 8.6. Iron is 67 and TIBC 278. Saturation is 24 and saturation as of 10/03 is 12%. Total bilirubin 0.5, serum ferritin level is 73. AST 34, ALT 30, alkaline phosphatase is 117. albumin is 2.9. B12 is more than 1000. MRI of the brain as of 10/06/2016, impression: Limited study due to significant motion artifact , Mild chronic white matter basal nuclei and brainstem ischemic changes. SUMMARY: The patient is a 76-year-old elderly male with a history of hypertension, diabetes, hyperlipidemia, chronic kidney disease, anemia, was admitted with generalized weakness and severe hyponatremia. Serum sodium 108, increased BUN and creatinine and status post fall without any injury. 1. Chronic kidney disease stage IV, most likely secondary to hypertensive nephrosclerosis. Cannot rule out secondary to chronic use of nonsteroidal anti- inflammatory drugs and cannot rule out chronic interstitial nephritis. 2. Anemia secondary to chronic renal failure and iron deficiency and gastrointestinal loss. 3. Altered mental status. Mental status is slowly improving. Rule out cerebrovascular accident. 4. Hypertension. 5. Diabetes. Follow up with gastrointestinal for possible esophagogastroduodenoscopy and colonoscopy on Monday. Case discussed with Dr. Rigo Comer on rounds. Thank you for allowing me to participate in your patient's care. Renal function is stable at this time. Emir Kirk MD cc: [id number] TT: 10/07/2016 21:44:17 Confirmation # [id number] Dictation # [id number] nataly MENENDEZ
[2016-10-08] MEDS: Ferric Sodium Gluconat Complex 62.5 mg/5 ml Vial IVPB SCH (09:53)
[2016-10-08] MEDS: Pantoprazole 40 mg EC Tab PO SCH ×2 (09:54→21:40)
[2016-10-08] MEDS: EPOETIN ALFA 10,000 UNIT/ML ML SC SCH (10:00)
--- NOTE | 2016-10-08 10:12 | CP.PCM.PN ---
Subjective - Date & Time of Evaluation Date of Evaluation: 10/08/16 Time of Evaluation: 10:12 - Subjective Subjective: pt seen and examined, follow up consult is dictated #[id number] Objective - Vital Signs/Intake and Output Vital Signs (last 24 hours): Temp Pulse Resp BP Pulse Ox 98.3 F 89 20 157/80 H 97 10/08/16 07:35 10/08/16 07:35 10/08/16 07:35 10/08/16 07:35 10/08/16 07:35 Intake and Output: 10/08/16 10/08/16 06:59 18:59 Intake Total 1120 Output Total 1700 Balance -580 - Medications Medications: Current Medications Bisacodyl (Dulcolax) 10 mg PO ONCE ONE Stop: 10/09/16 17:01 Epoetin Kyle (Procrit) 10,000 unit SC TTS [facility] Last Admin: 10/06/16 10:58 Dose: 10,000 unit Ferric Sodium Gluconate Complex (Ferrlecit) 125 mg IVPB DAILY [facility] Stop: 10/12/16 10:01 Last Admin: 10/08/16 09:53 Dose: 125 mg Finasteride (Proscar) 5 mg PO DAILY [facility] Last Admin: 10/08/16 09:54 Dose: 5 mg Gemfibrozil (Lopid) 600 mg PO DAILY [facility] Last Admin: 10/08/16 09:53 Dose: 600 mg Hydralazine HCl (Apresoline) 25 mg PO TID [facility] Last Admin: 10/08/16 09:53 Dose: 25 mg Pantoprazole Sodium (Protonix Ec Tab) 40 mg PO Q12H [facility] Last Admin: 10/08/16 09:54 Dose: 40 mg Polyethylene Glycol/Electrolytes (Golytely) 4,000 ml PO ONCE ONE Stop: 10/09/16 19:01 Tamsulosin HCl (Flomax) 0.4 mg PO DAILY [facility] Last Admin: 10/08/16 09:54 Dose: 0.4 mg - Labs Labs: 10/07/16 08:04 10/07/16 08:04 PT 10.7 SECONDS (9.7-12.2) 10/03/16 15:51 INR 1.0 10/03/16 15:51 APTT 27 SECONDS (21-34) 10/03/16 15:51
--- NOTE | 2016-10-08 11:35 | CP.PCM.PN ---
Subjective - Date & Time of Evaluation Date of Evaluation: 10/08/16 Time of Evaluation: 11:33 - Subjective Subjective: Covering Dr Truong CC: Follow up anemia Denies overt bleeding, abdominal pain, dyspnea Objective - Vital Signs/Intake and Output Vital Signs (last 24 hours): Temp Pulse Resp BP Pulse Ox 98.3 F 89 20 157/80 H 97 10/08/16 07:35 10/08/16 07:35 10/08/16 07:35 10/08/16 07:35 10/08/16 07:35 Intake and Output: 10/08/16 10/08/16 06:59 18:59 Intake Total 1120 Output Total 1700 Balance -580 - Medications Medications: Current Medications Bisacodyl (Dulcolax) 10 mg PO ONCE ONE Stop: 10/09/16 17:01 Epoetin Kyle (Procrit) 10,000 unit SC TTS [facility] Last Admin: 10/06/16 10:58 Dose: 10,000 unit Ferric Sodium Gluconate Complex (Ferrlecit) 125 mg IVPB DAILY [facility] Stop: 10/12/16 10:01 Last Admin: 10/08/16 09:53 Dose: 125 mg Finasteride (Proscar) 5 mg PO DAILY [facility] Last Admin: 10/08/16 09:54 Dose: 5 mg Gemfibrozil (Lopid) 600 mg PO DAILY [facility] Last Admin: 10/08/16 09:53 Dose: 600 mg Hydralazine HCl (Apresoline) 25 mg PO TID [facility] Last Admin: 10/08/16 09:53 Dose: 25 mg Pantoprazole Sodium (Protonix Ec Tab) 40 mg PO Q12H [facility] Last Admin: 10/08/16 09:54 Dose: 40 mg Polyethylene Glycol/Electrolytes (Golytely) 4,000 ml PO ONCE ONE Stop: 10/09/16 19:01 Tamsulosin HCl (Flomax) 0.4 mg PO DAILY [facility] Last Admin: 10/08/16 09:54 Dose: 0.4 mg - Labs Labs: 10/07/16 08:04 10/07/16 08:04 PT 10.7 SECONDS (9.7-12.2) 10/03/16 15:51 INR 1.0 10/03/16 15:51 APTT 27 SECONDS (21-34) 10/03/16 15:51 - Constitutional Appears: No Acute Distress, Chronically Ill - Head Exam Head Exam: NORMOCEPHALIC - Eye Exam Eye Exam: absent: Scleral icterus - Respiratory Exam Respiratory Exam: Clear to Ausculation Bilateral - Cardiovascular Exam Cardiovascular Exam: REGULAR RHYTHM - GI/Abdominal Exam GI & Abdominal Exam: Soft. absent: Tenderness Assessment and Plan (1) Anemia Assessment & Plan: Plan for Colonoscopy Monday by Dr Truong Status: Acute
--- NOTE | 2016-10-08 11:48 | PN ---
DATE: 10/08/2016 HISTORY OF PRESENT ILLNESS: The patient is a 76-year-old elderly [place] male with a history of longs tanding hypertension, diabetes, hyperlipidemia, chronic kidney disease stage IV, anemia and BPH, who was admitted with generalized weakness, status post fall x 3 without any injury and severe hyponatrem ia, low H and H and increased BUN and creatinine requiring admission to the ICU for altered mental st atus and confusion and started on IV fluids with normal saline. Serum sodium gradually improved. No w, the patient is feeling much better, not in acute distress. The patient was also found to have sto ol for occult blood positive, requiring transfusion of 4 units of packed RBC. The patient is not in acute distress and denies any headache, dizziness. Denies any chest pain, palpitations. Denies any fever or cough. No nausea, vomiting, diarrhea. PHYSICAL EXAMINATION: VITAL SIGNS: This morning as follows: Blood pressure 157/80, pulse 89, respirations 20, temperature 98.3, saturation 97%, height 5 feet 7 inches. Weight is 214 pounds. GENERAL: The patient is a 76-year-old elderly male, moderately built, moderately nourished, not in a cute distress. HEENT: Pupils normal, reactive to light and accommodation. Conjunctivae pink. Sclerae anicteric. Tongue is moist. NECK: Trachea is midline. LUNGS: Symmetric on both sides. Bilateral breath sounds present. Clear on auscultation. CARDIOVASCULAR: S1 and S2 audible. No murmur, no gallop. ABDOMEN: Normal in appearance, soft, tympanic. No guarding, no rigidity. No hepatosplenomegaly. CENTRAL NERVOUS SYSTEM: The patient is alert, awake, oriented x 2-3. Sensory and motor system is wi thin normal limits. EXTREMITIES: No cyanosis, no clubbing, no edema. CURRENT MEDICATIONS: Reviewed. Hydralazine 25 mg p.o. t.i.d., Dulcolax 10 mg p.o.,, Ferrlecit 125 m g IV daily, Flomax 0.4 mg daily, Lopid 600 mg p.o. daily, Procrit 10,000 units 3 times a week, Prosca r 5 mg p.o. daily, Protonix 40 mg p.o. q. 12 hours. LABORATORY DATA: Include as follows: No new labs are available for today. As of 10/07, H and H 9.4 /28.1. Sodium 132, potassium 4.6, BUN 36, creatinine 2.7 and Accu-Cheks are 99, 92, and 92 this morn ing. SUMMARY: The patient is a 76-year-old elderly [place] male with a history of hypertension, diabetes, hyperlipidemia, chronic kidney disease, anemia, benign prostatic hypertrophy, status post urinary ret ention with low serum sodium, low hemoglobin and hematocrit and stool for occult blood is positive an d increased BUN and creatinine. 1. Renal failure, chronic kidney disease stage IV with acute renal failure. Renal function is impro ving, back to his baseline creatinine 2.7. 2. Hyponatremia. Serum sodium improved to 132 from 108. Encourage p.o. intake and liberalize salt. 3. Anemia, most likely a combination of chronic kidney disease, iron deficiency and gastrointestinal loss, for possible esophagogastroduodenoscopy, colonoscopy next week. 4. Hypertension. Blood pressure is stable. Continue his current medication, hydralazine, and consi balwinder to add beta blockers if needed. We will follow with you. Thank you for allowing me to participate in your patient's care. Emir Kirk MD cc: [id number] TT: 10/08/2016 11:47:40 Confirmation # [id number] Dictation # [id number] tn
--- NOTE | 2016-10-08 14:08 | CP.PCM.PN ---
Subjective - Date & Time of Evaluation Date of Evaluation: 10/08/16 Time of Evaluation: 14:07 - Subjective Subjective: much better.labs noted/. Objective - Vital Signs/Intake and Output Vital Signs (last 24 hours): Temp Pulse Resp BP Pulse Ox 98.3 F 89 20 157/80 H 97 10/08/16 07:35 10/08/16 07:35 10/08/16 07:35 10/08/16 07:35 10/08/16 07:35 Intake and Output: 10/08/16 10/08/16 06:59 18:59 Intake Total 1120 Output Total 1700 500 Balance -580 -500 - Medications Medications: Current Medications Bisacodyl (Dulcolax) 10 mg PO ONCE ONE Stop: 10/09/16 17:01 Epoetin Kyle (Procrit) 10,000 unit SC TTS [facility] Last Admin: 10/08/16 10:00 Dose: 10,000 unit Ferric Sodium Gluconate Complex (Ferrlecit) 125 mg IVPB DAILY [facility] Stop: 10/12/16 10:01 Last Admin: 10/08/16 09:53 Dose: 125 mg Finasteride (Proscar) 5 mg PO DAILY [facility] Last Admin: 10/08/16 09:54 Dose: 5 mg Gemfibrozil (Lopid) 600 mg PO DAILY [facility] Last Admin: 10/08/16 09:53 Dose: 600 mg Hydralazine HCl (Apresoline) 25 mg PO TID [facility] Last Admin: 10/08/16 13:29 Dose: 25 mg Pantoprazole Sodium (Protonix Ec Tab) 40 mg PO Q12H [facility] Last Admin: 10/08/16 09:54 Dose: 40 mg Polyethylene Glycol/Electrolytes (Golytely) 4,000 ml PO ONCE ONE Stop: 10/09/16 19:01 Tamsulosin HCl (Flomax) 0.4 mg PO DAILY [facility] Last Admin: 10/08/16 09:54 Dose: 0.4 mg - Labs Labs: 10/07/16 08:04 10/07/16 08:04 PT 10.7 SECONDS (9.7-12.2) 10/03/16 15:51 INR 1.0 10/03/16 15:51 APTT 27 SECONDS (21-34) 10/03/16 15:51 - Constitutional Appears: No Acute Distress - Eye Exam Eye Exam: Normal appearance - Respiratory Exam Respiratory Exam: Clear to Ausculation Bilateral - Cardiovascular Exam Cardiovascular Exam: REGULAR RHYTHM - GI/Abdominal Exam GI & Abdominal Exam: Soft - Extremities Exam Extremities Exam: absent: Pedal Edema - Neurological Exam Neurological Exam: Alert, Oriented x3 Assessment and Plan - Assessment and Plan (Free Text) Assessment: colon on monday
[2016-10-08 17:30] LABS: METHYLMALONIC ACID,SERUM 142 nmol/L (87-318)
[2016-10-08 17:36] LABS: CALCIUM 8.8 mg/dl (8.6-10.4)
--- NOTE | 2016-10-09 09:30 | CP.PCM.PN ---
Subjective - Date & Time of Evaluation Date of Evaluation: 10/09/16 Time of Evaluation: 09:29 - Subjective Subjective: Covering dr Truong CC: anemia Feels weak no abdominal pain Objective - Vital Signs/Intake and Output Vital Signs (last 24 hours): Temp Pulse Resp BP Pulse Ox 98.7 F 94 H 20 165/75 H 97 10/09/16 08:00 10/09/16 08:00 10/09/16 08:00 10/09/16 08:00 10/09/16 08:00 Intake and Output: 10/09/16 10/09/16 06:59 18:59 Output Total 1300 Balance -1300 - Medications Medications: Current Medications Bisacodyl (Dulcolax) 10 mg PO ONCE ONE Stop: 10/09/16 17:01 Epoetin Kyle (Procrit) 10,000 unit SC TTS [facility] Last Admin: 10/08/16 10:00 Dose: 10,000 unit Ferric Sodium Gluconate Complex (Ferrlecit) 125 mg IVPB DAILY [facility] Stop: 10/12/16 10:01 Last Admin: 10/08/16 09:53 Dose: 125 mg Finasteride (Proscar) 5 mg PO DAILY [facility] Last Admin: 10/08/16 09:54 Dose: 5 mg Gemfibrozil (Lopid) 600 mg PO DAILY [facility] Last Admin: 10/08/16 09:53 Dose: 600 mg Hydralazine HCl (Apresoline) 25 mg PO TID [facility] Last Admin: 10/08/16 18:08 Dose: 25 mg Pantoprazole Sodium (Protonix Ec Tab) 40 mg PO Q12H [facility] Last Admin: 10/08/16 21:40 Dose: 40 mg Polyethylene Glycol/Electrolytes (Golytely) 4,000 ml PO ONCE ONE Stop: 10/09/16 19:01 Tamsulosin HCl (Flomax) 0.4 mg PO DAILY [facility] Last Admin: 10/08/16 09:54 Dose: 0.4 mg - Labs Labs: 10/07/16 08:04 10/08/16 17:00 PT 10.7 SECONDS (9.7-12.2) 10/03/16 15:51 INR 1.0 10/03/16 15:51 APTT 27 SECONDS (21-34) 10/03/16 15:51 - Head Exam Head Exam: NORMOCEPHALIC - Respiratory Exam Respiratory Exam: Clear to Ausculation Bilateral - Cardiovascular Exam Cardiovascular Exam: REGULAR RHYTHM - GI/Abdominal Exam GI & Abdominal Exam: Soft. absent: Tenderness Assessment and Plan (1) Anemia Assessment & Plan: Colonoscopy tomorrow Status: Acute
[2016-10-09] MEDS: Ferric Sodium Gluconat Complex 62.5 mg/5 ml Vial IVPB SCH (10:30)
[2016-10-09] MEDS: Pantoprazole 40 mg EC Tab PO SCH ×2 (10:37→21:49)
[2016-10-09] MEDS ORDERED: Bisacodyl 5mg EC Tab PO ONE (17:00)
[2016-10-09] MEDS ORDERED: Peg-Electrolyte Oral Soln 4L (Golytely) PO ONE (19:00)
[2016-10-10] MEDS: Pantoprazole 40 mg EC Tab PO SCH (09:00)
[2016-10-10] MEDS ORDERED: Lactated Ringer's 500 ML IV ONE (09:31)
[2016-10-10] MEDS ORDERED: Sodium Chloride 0.9% 1,000 ML IV ONE (09:31)
[2016-10-10] MEDS ORDERED: Propofol 10 mg/ml Inj (20 ML) ONE ×2 (09:34→10:05)
[2016-10-10] MEDS ORDERED: Etomidate 20 mg/10ml Inj IV ONE (09:34)
[2016-10-10] MEDS ORDERED: Lidocaine Hydrochloride 5 ML INJ ONE (09:34)
--- NOTE | 2016-10-10 10:08 | CP.PCM.PN ---
Subjective - Date & Time of Evaluation Date of Evaluation: 10/10/16 Time of Evaluation: 10:08 - Subjective Subjective: pt seen and examined, follow up consult is dictated #[id number] h/h is stable, ckd-4, s.cr is back to his base line 2.6-2.7 s na improved to 134 Objective - Vital Signs/Intake and Output Vital Signs (last 24 hours): Temp Pulse Resp BP Pulse Ox 98.4 F 94 H 20 124/50 L 98 10/10/16 09:38 10/10/16 09:38 10/10/16 09:38 10/10/16 09:38 10/10/16 09:38 Intake and Output: 10/10/16 10/10/16 06:59 18:59 Output Total 550 Balance -550 - Medications Medications: Current Medications Epoetin Kyle (Procrit) 10,000 unit SC TTS [facility] Last Admin: 10/08/16 10:00 Dose: 10,000 unit Ferric Sodium Gluconate Complex (Ferrlecit) 125 mg IVPB DAILY [facility] Stop: 10/12/16 10:01 Last Admin: 10/09/16 10:30 Dose: 125 mg Finasteride (Proscar) 5 mg PO DAILY [facility] Last Admin: 10/10/16 09:00 Dose: 5 mg Gemfibrozil (Lopid) 600 mg PO DAILY [facility] Last Admin: 10/10/16 09:00 Dose: 600 mg Hydralazine HCl (Apresoline) 25 mg PO TID [facility] Last Admin: 10/10/16 09:00 Dose: 25 mg Pantoprazole Sodium (Protonix Ec Tab) 40 mg PO Q12H [facility] Last Admin: 10/10/16 09:00 Dose: 40 mg Tamsulosin HCl (Flomax) 0.4 mg PO DAILY [facility] Last Admin: 10/09/16 10:31 Dose: 0.4 mg - Labs Labs: 10/07/16 08:04 10/08/16 17:00 PT 10.7 SECONDS (9.7-12.2) 10/03/16 15:51 INR 1.0 10/03/16 15:51 APTT 27 SECONDS (21-34) 10/03/16 15:51
[2016-10-10] MEDS: Ferric Sodium Gluconat Complex 62.5 mg/5 ml Vial IVPB SCH (11:19)
[2016-10-10 11:50] LABS: BASO % 0.6 % (0.0-2.0); EOS # 0.2 K/uL (0.0-0.7); EOS % 3.4 % (0.0-4.0); HEMOGLOBIN 10.1 g/dL (12.0-18.0); LYMPH # 0.8 K/uL (1.0-4.3); LYMPH % 13.8 % (20.0-40.0); MEAN CORPUSCULAR HEMOGLOBIN 29.7 pg (27.0-31.0); MEAN CORPUSCULAR HGB CONC 32.9 g/dL (33.0-37.0); MEAN PLATELET VOLUME 7.3 fL (7.2-11.7); MONO # 0.7 K/uL (0.0-0.8); MONO % 10.9 % (0.0-10.0); NEUT # 4.4 K/uL (1.8-7.0); NEUT % 71.3 % (50.0-75.0); NRBC % 0.5 % (0.0-2.0); RBC 3.39 Mil/uL (4.40-5.90); RED CELL DISTRIBUTION WIDTH 17.6 % (11.5-14.5); WHITE BLOOD COUNT 6.1 K/uL (4.8-10.8)
[2016-10-10 11:51] LABS: MEAN CELL VOLUME 90.3 fL (80.0-94.0)
[2016-10-10 12:21] VITALS: RESP 20
[2016-10-10 12:54] LABS: ALPHA-1-GLOBULIN (PEP) 0.4 g/dL (0.2-0.3)
--- NOTE | 2016-10-10 14:51 | CP.PCM.PN ---
Subjective - Date & Time of Evaluation Date of Evaluation: 10/10/16 Time of Evaluation: 14:50 - Subjective Subjective: colon noted.ok.labs ok Objective - Vital Signs/Intake and Output Vital Signs (last 24 hours): Temp Pulse Resp BP Pulse Ox 98 F 88 20 139/65 98 10/10/16 12:20 10/10/16 12:20 10/10/16 12:20 10/10/16 12:20 10/10/16 12:20 Intake and Output: 10/10/16 10/10/16 06:59 18:59 Output Total 550 Balance -550 - Medications Medications: Current Medications Epoetin Kyle (Procrit) 10,000 unit SC TTS [facility] Last Admin: 10/08/16 10:00 Dose: 10,000 unit Ferric Sodium Gluconate Complex (Ferrlecit) 125 mg IVPB DAILY [facility] Stop: 10/12/16 10:01 Last Admin: 10/10/16 11:19 Dose: 125 mg Finasteride (Proscar) 5 mg PO DAILY [facility] Last Admin: 10/10/16 09:00 Dose: 5 mg Gemfibrozil (Lopid) 600 mg PO DAILY [facility] Last Admin: 10/10/16 09:00 Dose: 600 mg Hydralazine HCl (Apresoline) 25 mg PO TID [facility] Last Admin: 10/10/16 14:14 Dose: 25 mg Pantoprazole Sodium (Protonix Ec Tab) 40 mg PO Q12H [facility] Last Admin: 10/10/16 09:00 Dose: 40 mg Tamsulosin HCl (Flomax) 0.4 mg PO DAILY [facility] Last Admin: 10/10/16 11:19 Dose: 0.4 mg - Labs Labs: 10/10/16 11:42 10/08/16 17:00 PT 10.7 SECONDS (9.7-12.2) 10/03/16 15:51 INR 1.0 10/03/16 15:51 APTT 27 SECONDS (21-34) 10/03/16 15:51 - Constitutional Appears: No Acute Distress - Eye Exam Eye Exam: Normal appearance - Respiratory Exam Respiratory Exam: Clear to Ausculation Bilateral - Cardiovascular Exam Cardiovascular Exam: REGULAR RHYTHM - GI/Abdominal Exam GI & Abdominal Exam: Soft - Neurological Exam Neurological Exam: Alert, Oriented x3 Assessment and Plan - Assessment and Plan (Free Text) Assessment: ckd.htn,stable.anaemia stable.ok to transfer to [facility]
[2016-10-10 15:31] LABS: PARIETAL CELL AB TITER 1:20 Titer (< 1:20)
[2016-10-10 16:32] VITALS: BP 161/75; PULSE 102; TEMP 98.7; O2SAT 96
--- NOTE | 2016-10-10 16:41 | CP.PCM.PN ---
Subjective - Date & Time of Evaluation Date of Evaluation: 10/10/16 Time of Evaluation: 16:41 - Subjective Subjective: awake, alert, able to make needs known. Objective - Vital Signs/Intake and Output Vital Signs (last 24 hours): Temp Pulse Resp BP Pulse Ox 98.7 F 102 H 20 161/75 H 96 10/10/16 16:00 10/10/16 16:00 10/10/16 16:00 10/10/16 16:00 10/10/16 16:00 Intake and Output: 10/10/16 10/10/16 06:59 18:59 Output Total 550 Balance -550 - Medications Medications: Current Medications Epoetin Kyle (Procrit) 10,000 unit SC TTS [facility] Last Admin: 10/08/16 10:00 Dose: 10,000 unit Ferric Sodium Gluconate Complex (Ferrlecit) 125 mg IVPB DAILY [facility] Stop: 10/12/16 10:01 Last Admin: 10/10/16 11:19 Dose: 125 mg Finasteride (Proscar) 5 mg PO DAILY [facility] Last Admin: 10/10/16 09:00 Dose: 5 mg Gemfibrozil (Lopid) 600 mg PO DAILY [facility] Last Admin: 10/10/16 09:00 Dose: 600 mg Hydralazine HCl (Apresoline) 25 mg PO TID [facility] Last Admin: 10/10/16 14:14 Dose: 25 mg Pantoprazole Sodium (Protonix Ec Tab) 40 mg PO Q12H [facility] Last Admin: 10/10/16 09:00 Dose: 40 mg Tamsulosin HCl (Flomax) 0.4 mg PO DAILY [facility] Last Admin: 10/10/16 11:19 Dose: 0.4 mg - Labs Labs: 10/10/16 11:42 10/08/16 17:00 PT 10.7 SECONDS (9.7-12.2) 10/03/16 15:51 INR 1.0 10/03/16 15:51 APTT 27 SECONDS (21-34) 10/03/16 15:51 Assessment and Plan - Assessment and Plan (Free Text) Assessment: Patient is seen and examined. Awake, forgetful, no sob or chest pains. Had colonoscopy done today, no bleeding or pain noted. D/W DR Rigo holland, plan to discharge him to [facility] for physical therapy. Advised discontinue the pierre catheter in am and monitor urine output.
--- NOTE | 2016-10-11 00:31 | PN ---
DATE: 10/10/2016 The patient is located in room 358, bed B. REQUESTED BY: Dr. Rigo Comer. REASON FOR RENAL CONSULTATION: Acute renal failure, on chronic kidney disease stage IV, anemia, hyponatremia. HISTORY OF PRESENT ILLNESS: The patient is a 76-year-old obese male with a past medical history significant for long-standing hypertension, diabetes , history of nonsteroidal use in the past, and chronic kidney disease stage IV, anemia, benign prostatic hypertrophy, obstructive uropathy, was admitted with chief complaints of feeling weak, tired and black stool, low H and H, increased BUN and creatinine and also severe hyponatremia, status post fall without injury. The patient was found to have hypotonic hypovolemic hyponatremia with intravascular volume depletion and was started with IV fluids, normal saline and serum sodium gradually improved. Now serum sodium is 134. The patient underwent colonoscopy and EGD this morning, seen in recovery. The patient is not in distress, no complaints. No chest pain, no palpitations, no fever, no cough, no abdominal pain, no nausea, vomiting or diarrhea. PHYSICAL EXAMINATION: VITAL SIGNS: Blood pressure 139/65, pulse 88, respiration 20, temperature 98, saturation 98%. Height 5 feet 7 inches and weight is 214 pounds. GENERAL: The patient is a 76-year-old elderly male, well built, well nourished , not in acute distress. HEENT: Pupils normal, reactive to light and accommodation. Conjunctivae pink. Sclerae anicteric. Tongue is moist. NECK: Trachea is midline. LUNGS: Symmetric on both sides. Bilateral breath sounds present. Clear on auscultation. CARDIOVASCULAR: [place] at the fifth intercostal space. S1 and S2 audible. No murmur, no gallop. ABDOMEN: Protuberant, soft, tympanic. No guarding, no rigidity. No hepatosplenomegaly. No abdominal bruit. CENTRAL NERVOUS SYSTEM: The patient is alert, awake, oriented x 3, nonfocal on examination. Cranial nerves II through XII grossly intact. Sensory and motor system is within normal limits. EXTREMITIES: No cyanosis, no clubbing, no edema. CURRENT MEDICATIONS: Include as follows: Hydralazine 25 mg p.o. t.i.d., ,. Fioricet 125 mg IV daily, Flomax 0.4 mg daily, Lopid 600 mg p.o. daily, Procrit 10,000 three times a week, Proscar 5 mg daily, Protonix 40 mg p.o. q. 12 hours, and IV fluids normal saline. LABORATORY DATA: Include as follows: As of this morning, WBC 6.1, hemoglobin 10.1, hematocrit is 30.6 and platelets 329. As of 10/08/2016, sodium is 134, potassium 4.8, chloride 106, CO2 of 20, BUN 27, creatinine 2.6, and glucose 119 and calcium 8.8. Stool for occult blood is negative as of 10/08/2016. Parietal cell antibodies positive and intrinsic factor antibodies are negative and serum protein electrophoresis is negative, suggestive of nephrotic syndrome. SUMMARY: The patient is a 76-year-old elderly male with a history of longstanding hypertension, diabetes, hyperlipidemia, chronic kidney disease stage IV, proteinuria and BPH with obstructive uropathy, who was admitted with generalized weakness and low serum sodium and low H and H and black stool and increased BUN and creatinine. 1. Acute renal failure on chronic kidney disease. Renal function improved and creatinine is back to his baseline 2.6-2.7 and azotemia improved with hydration. 2. Hyponatremia secondary to hypotonic hypovolemic hyponatremia. Serum sodium improved from 108 to 134 with gentle IV hydration. 3. Status post GI bleed, status post transfusion of 4 units of packed RBC. H and H is stable. The patient underwent EGD and colonoscopy this morning. The patient is stable from the renal standpoint. Continue Procrit and hold for hemoglobin more than 11 and will follow with you. Thank you for allowing me to participate in your patient's care and for possible transfer to subacute rehabilitation. The patient is scheduled to discharge to [facility]. Emir Kirk MD cc: [id number] TT: 10/11/2016 00:30:28 Confirmation # [id number] Dictation # [id number] jacky MENENDEZ
== END 2016-10-10 19:45 | DRG 811 ==
LOC: C.ER 14:13 → C.9E 17:29 → C.9I 18:17 → C.3T 10-04 16:43
PROVIDERS: ADMIT Internal Medicine Cardiovascular Disease; ATTEND Internal Medicine Cardiovascular Disease
PROC: 30233N1 Transfusion of Nonautologous Red Blood Cells into Peripheral Vein, Percutaneous Approach (ICD-10-PCS; principal; 2016-10-06)
PROC: 0DB98ZX Excision of Duodenum, Via Natural or Artificial Opening Endoscopic, Diagnostic (ICD-10-PCS; 2016-10-10)
PROC: 0DB68ZX Excision of Stomach, Via Natural or Artificial Opening Endoscopic, Diagnostic (ICD-10-PCS; 2016-10-10)
PROC: 0DB58ZX Excision of Esophagus, Via Natural or Artificial Opening Endoscopic, Diagnostic (ICD-10-PCS; 2016-10-10)
PROC: 0DJD8ZZ Inspection of Lower Intestinal Tract, Via Natural or Artificial Opening Endoscopic (ICD-10-PCS; 2016-10-10 09:40)
DX: D50.9 Iron deficiency anemia, unspecified (principal); G93.41 Metabolic encephalopathy; E87.1 Hypo-osmolality and hyponatremia; N18.4 Chronic kidney disease, stage 4 (severe); N17.9 Acute kidney failure, unspecified; K26.9 Duodenal ulcer, unspecified as acute or chronic, without hemorrhage or perforation; E11.22 Type 2 diabetes mellitus with diabetic chronic kidney disease; B37.81 Candidal esophagitis; E86.1 Hypovolemia; N13.9 Obstructive and reflux uropathy, unspecified; E78.5 Hyperlipidemia, unspecified; I12.9 Hypertensive chronic kidney disease with stage 1 through stage 4 chronic kidney disease, or unspecified chronic kidney disease; M19.90 Unspecified osteoarthritis, unspecified site; Z87.891 Personal history of nicotine dependence; Z91.81 History of falling; M10.9 Gout, unspecified; E78.00 Pure hypercholesterolemia, unspecified; N40.1 Benign prostatic hyperplasia with lower urinary tract symptoms; R33.8 Other retention of urine; K57.30 Diverticulosis of large intestine without perforation or abscess without bleeding; K64.8 Other hemorrhoids; K29.00 Acute gastritis without bleeding; R31.0 Gross hematuria; D63.1 Anemia in chronic kidney disease; K44.9 Diaphragmatic hernia without obstruction or gangrene

== ENCOUNTER 2016-11-15 16:21 | Inpatient (IN) | payer MEDICARE ==
[2016-11-15 16:44] VITALS: BMI 34.2
[2016-11-18 15:54] VITALS: RESP 20
[2016-11-23 15:45] VITALS: BP 130/68; PULSE 93; TEMP 99.4; O2SAT 96
== END 2016-11-23 18:45 | DRG 682 ==
LOC: C.ER 16:21 → C.9E 19:46 → C.3T 21:38
PROVIDERS: ADMIT Internal Medicine Cardiovascular Disease; ATTEND Internal Medicine Cardiovascular Disease
DX: N17.9 Acute kidney failure, unspecified (principal); G93.41 Metabolic encephalopathy; E11.22 Type 2 diabetes mellitus with diabetic chronic kidney disease; I13.0 Hypertensive heart and chronic kidney disease with heart failure and stage 1 through stage 4 chronic kidney disease, or unspecified chronic kidney disease; I50.32 Chronic diastolic (congestive) heart failure; N39.0 Urinary tract infection, site not specified; I42.2 Other hypertrophic cardiomyopathy; B96.1 Klebsiella pneumoniae [K. pneumoniae] as the cause of diseases classified elsewhere; E86.0 Dehydration; F32.9 Major depressive disorder, single episode, unspecified; N18.9 Chronic kidney disease, unspecified; D63.1 Anemia in chronic kidney disease; E66.9 Obesity, unspecified; E78.00 Pure hypercholesterolemia, unspecified; E78.5 Hyperlipidemia, unspecified; M19.90 Unspecified osteoarthritis, unspecified site; N18.4 Chronic kidney disease, stage 4 (severe); T50.2X5A Adverse effect of carbonic-anhydrase inhibitors, benzothiadiazides and other diuretics, initial encounter; N40.0 Benign prostatic hyperplasia without lower urinary tract symptoms; Z82.49 Family history of ischemic heart disease and other diseases of the circulatory system; Z87.440 Personal history of urinary (tract) infections; Z87.891 Personal history of nicotine dependence; Z83.3 Family history of diabetes mellitus

== ENCOUNTER 2016-12-29 17:35 | Inpatient (IN) | payer MEDICARE ==
[2016-12-29 17:36] VITALS: BMI 34.2
[2016-12-29 18:56] LABS: BASO # 0.1 K/uL (0.0-0.2); BASO % 0.7 % (0.0-2.0); EOS # 0.3 K/uL (0.0-0.7); EOS % 3.2 % (0.0-4.0); HEMATOCRIT 30.6 % (35.0-51.0); LYMPH # 1.4 K/uL (1.0-4.3); MEAN CELL VOLUME 88.9 fL (80.0-94.0); MEAN CORPUSCULAR HEMOGLOBIN 28.5 pg (27.0-31.0); MONO # 0.9 K/uL (0.0-0.8); MONO % 9.5 % (0.0-10.0); NRBC % 0.1 % (0.0-2.0); WHITE BLOOD COUNT 9.7 K/uL (4.8-10.8)
[2016-12-29 19:11] LABS: POTASSIUM 4.7 mmol/L (3.6-5.2)
[2016-12-29 19:13] LABS: BILIRUBIN,TOTAL 0.5 mg/dL (0.2-1.3)
[2016-12-29 19:14] LABS: CALCIUM 8.7 mg/dl (8.6-10.4); TOTAL PROTEIN 7.1 g/dL (6.3-8.3)
[2016-12-29 19:55] LABS: RBC URINE 2 /hpf (0-3); URINE BACTERIA FEW (<OCC); URINE BILIRUBIN NEGATIVE (NEGATIVE); URINE BLOOD NEGATIVE (NEGATIVE); URINE COLOR Yellow (YELLOW); URINE GLUCOSE (UA) NORMAL (Normal); URINE KETONE NEGATIVE (NEGATIVE); URINE LEUKOCYTE ESTERASE 3+ Leu/uL (Negative); URINE PROTEIN NEGATIVE (NEGATIVE); URINE UROBILINOGEN NORMAL mg/dL (0.2-1.0); WBC URINE 142 /hpf (0-5)
[2016-12-29] MEDS ORDERED: cefTRIAXone IV 1 gm in Dextros 50 ML IVPB ONE ×2 (20:38→21:09)
--- NOTE | 2016-12-29 20:41 | C.PDOC ---
History Of Present Illness Pt was sent in from the rehab center due to worsening of his Renal function. Time Seen by Provider: 12/29/16 18:26 Chief Complaint (Nursing): Abnormal Labs History Per: Patient, Family, Other ([facility] transfer papers) Onset/Duration Of Symptoms: Days (1) Current Symptoms Are (Timing): Worse Severity: Moderate Reports Recently: Treated By A Physician Additional History Per: Prior Records Past Medical History Reviewed: Historical Data, Nursing Documentation, Vital Signs Vital Signs: Last Vital Signs Temp 98.2 F 12/29/16 17:48 Pulse 92 H 12/29/16 17:48 Resp 20 12/29/16 17:48 BP 173/90 H 12/29/16 17:48 Pulse Ox 98 12/29/16 17:48 - Medical History PMH: Anemia, HTN, Hypercholesterolemia, Hyperlipidemia, Chronic Kidney Disease Surgical History: Appendectomy - [facility] Procedures EXCISION OF DUODENUM, ENDO, DIAGN (10/03/16) EXCISION OF ESOPHAGUS, ENDO, DIAGN (10/03/16) EXCISION OF STOMACH, ENDO, DIAGN (10/03/16) EXCISION OF TOE NAIL, EXTERNAL APPROACH (07/15/16) INSPECTION OF LOWER INTESTINAL TRACT, ENDO (10/03/16) TRANSFUSE NONAUT RED BLOOD CELLS IN PERIPH VEIN, PERC (10/03/16) Family History: States: Unknown Family Hx - Social History Hx Alcohol Use: No Hx Substance Use: No - Immunization History Hx Tetanus Toxoid Vaccination: Yes Hx Influenza Vaccination: No Hx Pneumococcal Vaccination: Yes Review Of Systems Except As Marked, All Systems Reviewed And Found Negative. Constitutional: Negative for: Fever, Weakness Cardiovascular: Negative for: Chest Pain Respiratory: Negative for: Shortness of Breath Gastrointestinal: Negative for: Vomiting, Abdominal Pain Musculoskeletal: Negative for: Neck Pain Skin: Negative for: Rash Neurological: Negative for: Weakness, Numbness Physical Exam - Physical Exam Appears: No Acute Distress, Chronically Ill Skin: Normal Color, Warm, Dry, No Rash Head: Atraumatic, Normacephalic Eye(s): bilateral: Normal Inspection, PERRL, EOMI Neck: Normal ROM, Supple Cardiovascular: Rhythm Regular Respiratory: Normal Breath Sounds, No Accessory Muscle Use Gastrointestinal/Abdominal: Soft, No Tenderness Back: No CVA Tenderness Extremity: Normal ROM, Pedal Edema Neurological/Psych: Oriented x3, Normal Motor, Normal Sensation ED Course And Treatment - Laboratory Results Result Diagrams: 12/29/16 18:42 12/29/16 18:54 Lab Interpretation: Abnormal Interpretation Of Abnormal: Renal failure. UTI. ECG: Interpreted By Me, Viewed By Me ECG Rhythm: Sinus Rhythm, PVC, Nonspecific Changes ECG Interpretation: No Acute Changes Rate From EC O2 Sat by Pulse Oximetry: 98 Pulse Ox Interpretation: Normal Disposition Discussed With DrAnkit: Rigo Comer Comment: He accepted pt on his service. Doctor Will See Patient In The: Hospital Counseled Patient/Family Regarding: Studies Performed, Diagnosis - Disposition Disposition: HOSPITALIZED Disposition Time: 20:20 Condition: GUARDED - Clinical Impression Clinical Impression: Acute on chronic renal failure, UTI (urinary tract infection)
[2016-12-30] MEDS: Dextrose 5%/0.45% NS 1,000 ML IV SCH (08:10)
[2016-12-30] MEDS: (Novolog) Insulin Aspart, Recombinant 100 u/ml 10 ml vial SC SCH ×4 (08:30→22:14)
--- NOTE | 2016-12-30 09:03 | CP.PCM.CON ---
History of Present Illness - History of Present Illness History of Present Illness: pt is seen and examined, full consult is dictated #[id number] 1. CAITLYN on ckd 2. htn 3. anemia 4. s/p uti 5.bph check urine c/s, u/s bladder and kidneys to r/o hydro d/c lisinopril add epogen [id number] units sc 3 x aweek f/u urine c/s Past Patient History - Past Medical History & Family History Past Medical History?: Yes - Past Social History Smoking Status: Former Smoker - CARDIAC Hx Hypercholesterolemia: Yes Hx Hypertension: Yes - PULMONARY Hx Respiratory Disorders: No Other/Comment: former smoker, SOB with exertion - NEUROLOGICAL Hx Neurological Disorder: No - HEENT Hx HEENT Problems: No - RENAL Hx Chronic Kidney Disease: Yes - ENDOCRINE/METABOLIC Hx Endocrine Disorders: Yes Hx Diabetes Mellitus Type 2: Yes - HEMATOLOGICAL/ONCOLOGICAL Hx Anemia: Yes - INTEGUMENTARY Hx Dermatological Problems: No - MUSCULOSKELETAL/RHEUMATOLOGICAL Hx Musculoskeletal Disorders: Yes Hx Falls: Yes Other/Comment: BLE weakness - GASTROINTESTINAL Hx Gastrointestinal Disorders: No Other/Comment: abdominal area distended - GENITOURINARY/GYNECOLOGICAL Hx Genitourinary Disorders: Yes Other/Comment: BPH - PSYCHIATRIC Hx Substance Use: No - SURGICAL HISTORY Hx Appendectomy: Yes - ANESTHESIA Hx Anesthesia: Yes Meds Allergies/Adverse Reactions: Allergies Allergy/AdvReac Type Severity Reaction Status Date / Time calcium carbonate [From Tums] Allergy Verified 12/29/16 17:40 dates Allergy Uncoded 12/29/16 17:40 - Medications Medications: Current Medications Dextrose/Sodium Chloride (Dextrose 5%/0.45% Ns 1000 Ml) 1,000 mls @ 50 mls/hr IV .Q20H [facility] Last Admin: 12/30/16 08:10 Dose: 50 mls/hr Insulin Aspart (Novolog) 0 unit SC ACHS [facility] PRN Reason: Protocol Last Admin: 12/30/16 08:30 Dose: Not Given Pneumococcal Polyvalent Vaccine (Pneumovax 23 Vaccine) 0.5 ml IM .ONCE ONE Stop: 01/02/17 10:01 Results - Vital Signs Recent Vital Signs: Last Vital Signs Temp 98.3 F 12/30/16 08:50 Pulse 95 H 12/30/16 08:50 Resp 20 12/30/16 08:50 BP 130/66 12/30/16 08:50 Pulse Ox 98 12/30/16 08:50 - Labs Result Diagrams: 12/30/16 11:42 12/30/16 11:42 Labs: Laboratory Results - last 24 hr 12/30/16 06:31 POC Glucose (mg/dL) 90
--- NOTE | 2016-12-30 09:16 | RAD ---
PROCEDURE: CHEST RADIOGRAPH, 1 VIEW HISTORY: Renal failure COMPARISON: Portable chest 11/15/2016. FINDINGS: LUNGS: Inspiratory volume is diminished however there is no definitive infiltrate bilaterally. PLEURA: No pneumothorax or pleural fluid seen. CARDIOVASCULAR: Cardiomediastinal silhouette appears stable. No pulmonary vascular derangement identified. OSSEOUS STRUCTURES: No significant abnormalities. VISUALIZED UPPER ABDOMEN: Normal. OTHER FINDINGS: None. IMPRESSION: Diminished inspiratory volume. No definitive infiltrate or pleural effusion appreciable this time.
[2016-12-30] MEDS: cefTRIAXone IV 1 gm in Dextros 50 ML IVPB SCH (11:00)
[2016-12-30 11:53] LABS: HEMATOCRIT 26.8 % (35.0-51.0); MEAN CELL VOLUME 88.6 fL (80.0-94.0); MEAN CORPUSCULAR HEMOGLOBIN 29.5 pg (27.0-31.0); MEAN CORPUSCULAR HGB CONC 33.3 g/dL (33.0-37.0); MEAN PLATELET VOLUME 7.7 fL (7.2-11.7); RED CELL DISTRIBUTION WIDTH 19.1 % (11.5-14.5); WHITE BLOOD COUNT 8.8 K/uL (4.8-10.8)
[2016-12-30 12:01] LABS: INR 1.1
[2016-12-30 12:13] LABS: POTASSIUM 4.5 mmol/L (3.6-5.2)
[2016-12-30 12:16] LABS: CALCIUM 8.5 mg/dl (8.6-10.4)
--- NOTE | 2016-12-30 14:16 | CP.PCM.CON ---
History of Present Illness - History of Present Illness History of Present Illness: reason for consultation: abnormal chest x-ray 76-year-old male with history of anemia, hypertension, CKD was transferred from rehabilitation for worsening renal function. Chest x-ray consistent with by basilar changes. Patient denies cough, denies fever chills, denies shortness of breath, denies chest pain Past Patient History - Past Medical History & Family History Past Medical History?: Yes - Past Social History Smoking Status: Former Smoker - CARDIAC Hx Hypercholesterolemia: Yes Hx Hypertension: Yes - PULMONARY Hx Respiratory Disorders: No Other/Comment: former smoker, SOB with exertion - NEUROLOGICAL Hx Neurological Disorder: No - HEENT Hx HEENT Problems: No - RENAL Hx Chronic Kidney Disease: Yes - ENDOCRINE/METABOLIC Hx Endocrine Disorders: Yes Hx Diabetes Mellitus Type 2: Yes - HEMATOLOGICAL/ONCOLOGICAL Hx Anemia: Yes - INTEGUMENTARY Hx Dermatological Problems: No - MUSCULOSKELETAL/RHEUMATOLOGICAL Hx Musculoskeletal Disorders: Yes Hx Falls: Yes Other/Comment: BLE weakness - GASTROINTESTINAL Hx Gastrointestinal Disorders: No Other/Comment: abdominal area distended - GENITOURINARY/GYNECOLOGICAL Hx Genitourinary Disorders: Yes Other/Comment: BPH - PSYCHIATRIC Hx Substance Use: No - SURGICAL HISTORY Hx Appendectomy: Yes - ANESTHESIA Hx Anesthesia: Yes Meds Allergies/Adverse Reactions: Allergies Allergy/AdvReac Type Severity Reaction Status Date / Time calcium carbonate [From Tums] Allergy Verified 12/29/16 17:40 dates Allergy Uncoded 12/29/16 17:40 - Medications Medications: Current Medications Allopurinol (Zyloprim) 100 mg PO DAILY [facility] Enalapril Maleate (Vasotec) 10 mg PO DAILY [facility] Ferrous Sulfate (Feosol) 325 mg PO BID [facility] Finasteride (Proscar) 5 mg PO DAILY [facility] Furosemide (Lasix) 20 mg PO DAILY [facility] Heparin Sodium (Porcine) (Heparin) 5,000 units SC Q12 [facility] Hydralazine HCl (Apresoline) 25 mg PO DAILY [facility] Dextrose/Sodium Chloride (Dextrose 5%/0.45% Ns 1000 Ml) 1,000 mls @ 50 mls/hr IV .Q20H [facility] Last Admin: 12/30/16 08:10 Dose: 50 mls/hr Ceftriaxone Sodium (Rocephin Iv 1 Gm Duplex) 50 mls @ 100 mls/hr IVPB DAILY [facility] Stop: 01/04/17 10:01 Last Admin: 12/30/16 11:00 Dose: 100 mls/hr Insulin Aspart (Novolog) 0 unit SC ACHS [facility] PRN Reason: Protocol Last Admin: 12/30/16 12:30 Dose: Not Given Multivitamins (Hexavitamin) 1 tab PO DAILY [facility] Pantoprazole Sodium (Protonix Ec Tab) 40 mg PO BID [facility] Pneumococcal Polyvalent Vaccine (Pneumovax 23 Vaccine) 0.5 ml IM .ONCE ONE Stop: 01/02/17 10:01 Tamsulosin HCl (Flomax) 0.4 mg PO DAILY [facility] Physical Exam - Head Exam Head Exam: ATRAUMATIC, NORMOCEPHALIC - Eye Exam Eye Exam: Normal appearance - Neck Exam Neck exam: Positive for: Normal Inspection - Respiratory Exam Respiratory Exam: Clear to Auscultation Bilateral - Cardiovascular Exam Cardiovascular Exam: REGULAR RHYTHM - GI/Abdominal Exam GI & Abdominal Exam: Normal Bowel Sounds, Soft - Extremities Exam Extremities exam: Positive for: normal inspection Results - Vital Signs Recent Vital Signs: Last Vital Signs Temp 98.3 F 12/30/16 08:50 Pulse 95 H 12/30/16 08:50 Resp 20 12/30/16 08:50 BP 130/66 12/30/16 08:50 Pulse Ox 98 12/30/16 08:50 - Labs Result Diagrams: 12/30/16 11:42 12/30/16 11:42 Labs: Laboratory Results - last 24 hr 12/30/16 12/30/16 12/30/16 06:31 11:42 11:42 WBC 8.8 RBC 3.03 L Hgb 8.9 L Hct 26.8 L MCV 88.6 MCH 29.5 MCHC 33.3 RDW 19.1 H Plt Count 376 MPV 7.7 PT 12.4 H INR 1.1 APTT 31 Sodium Potassium Chloride Carbon Dioxide Anion Gap BUN Creatinine Est GFR ( Amer) Est GFR (Non-Af Amer) POC Glucose (mg/dL) 90 Random Glucose Calcium 12/30/16 12/30/16 11:42 12:09 WBC RBC Hgb Hct MCV MCH MCHC RDW Plt Count MPV PT INR APTT Sodium 138 Potassium 4.5 Chloride 104 Carbon Dioxide 20 L Anion Gap 19 BUN 53 H Creatinine 5.4 H Est GFR ( Amer) 12 Est GFR (Non-Af Amer) 10 POC Glucose (mg/dL) 113 H Random Glucose 78 Calcium 8.5 L Assessment & Plan (1) Abnormal chest xray Status: Acute Comment: basilar changes/infiltrate. Patient denies cough, denies fever and shortness of breath. Pro calcitonin level. On antibiotics. We will follow (2) Acute on chronic renal failure Status: Acute
[2016-12-30] MEDS: Albuterol-Ipratrop 3 mg / 0.5 (3 ml) UD INH SCH ×2 (18:23→20:55)
[2016-12-30] MEDS: Promethazine DM 6.25 mg-15 mg/5 ml Syrup PO SCH (18:31)
[2016-12-30] MEDS: Pantoprazole 40 mg EC Tab PO SCH (18:32)
[2016-12-31] MEDS: Albuterol-Ipratrop 3 mg / 0.5 (3 ml) UD INH SCH ×4 (01:28→19:59)
--- NOTE | 2016-12-31 05:35 | CON ---
DATE: RENAL CONSULTATION LOCATION: The patient is located in room 670, bed B. REQUESTING PHYSICIAN: Rigo Comer MD REASON FOR FOLLOWUP: Acute renal failure and chronic kidney disease for further evaluation. HISTORY OF PRESENT ILLNESS: Mr. Cho is a 76-year-old elderly male obese with a past medical history significant for longstanding hypertension, chronic kidney disease, BPH, anemia, confusion, depression, hypernatremia, multiple admissions to the hospital in the last 6 to 8 months, was sent from the longterm with worsening renal function for further evaluation with status post treatment for the UTI about a month ago. The patient is not in acute distress. Denies any chest pain or palpitation. Denies any fever or cough. No abdominal pain. No nausea or vomiting. No diarrhea. The patient does complain of swelling of the legs. PAST MEDICAL HISTORY: Significant for hypertension, chronic kidney disease, anemia, arthritis, BPH, depression, UTI. PAST SURGICAL HISTORY: Denies. ALLERGIES: ALLERGIC TO CALCIUM CARBONATE AND DATES. SOCIAL HISTORY: No smoking. No alcohol. No drugs. PERSONAL HISTORY: He is . He has very supportive . FAMILY HISTORY: Not significant. His family lives in [place]. CURRENT MEDICATIONS: Include as follows: Hydralazine 25 mg p.o. daily, IV fluids D5, half normal saline 50 mL per hour and DuoNeb inhaler, and Feosol 325 mg p.o. b.i.d., Flomax 0.4 mg daily, subcutaneous heparin 5000 q. 12 hours, multivitamins 1 tablet daily, Lasix 20 mg p.o. daily, insulin per sliding scale, Phenergan DM 5 mL p.o. t.i.d. and Proscar 5 mg p.o. daily and Protonix 40 mg daily, Rocephin 1 g daily, Tylenol, Enalapril 10 mg daily, and allopurinol 100 mg p.o. daily. REVIEW OF SYSTEMS: Significant for bilateral leg swelling and worsening renal function. All other review of systems are reviewed and are negative. PHYSICAL EXAMINATION: VITAL SIGNS: Blood pressure this morning is 130/66, pulse is 95, respirations are 20, temperature is 98.3, and saturation is 98%. Height is 5 feet 7 inches and weight is 200 pounds. BMI is 31.3. GENERAL: Mr. Cho is a 76-year-old elderly obese male, well built and well nourished, with protuberant abdomen not in distress. HEENT: Pupils are normal and reactive to light and accommodation. Conjunctivae are pink. Sclerae are anicteric. Tongue is moist. Trachea is midline. LUNGS: Symmetrical on both sides. Bilateral breath sounds present. Clear on auscultation. CARDIOVASCULAR SYSTEM: Adkins at the fifth intercostal space, midclavicular line. S1 and S2 audible. No murmur and no gallop. ABDOMEN: Normal in appearance. Protuberant. Soft and tympanic. No guarding. No rigidity. No hepatosplenomegaly. Slight dullness in the suprapubic. No guarding. No rigidity. No hepatosplenomegaly. No abdominal bruit. CENTRAL NERVOUS SYSTEM: The patient is alert, awake, and oriented x2-3. Sensory and motor system is grossly within normal limits. Cranial nerves II through XII grossly intact. EXTREMITIES: No cyanosis and no clubbing. The patient has 1 to 2+ edema in both lower extremities. LABORATORY DATA: Include as follows; as of 12/30/2016, WBC is 8.8, hemoglobin is 8.9, hematocrit is 26.8, and platelets are 376. PT is 12.4 and PTT is 31. Sodium is 138, potassium is 4.6, chloride is 104, CO2 is 20, BUN is 53, and creatinine is 5.4. Glucose is 78 and calcium is 8.5. Urine osmolality is 312. Urine sodium is 109. Urine potassium is 16.7. Urine phosphorus is 15.7. Urinalysis as of 12/29/2016, yellow, hazy and pH of 6, specific gravity 1.006 and protein negative, glucose negative, ketones negative, blood negative, nitrites negative, bilirubin negative, and urobilinogen is normal. Leukocytosis 3+, WBC is 142, RBC is 2, and bacteria few. Urine culture is positive for Gram negative rods, 2 types more than 100,000 colonies forming units, both identification and sensory is pending. IMAGING DATA: Chest x-ray as of 12/29/2016, diminished inspiratory volume. No definitive infiltrate or pleural effusion, appreciable at this time. ASSESSMENT: In summary, Mr. Cho is a 76-year-old elderly male with history of hypertension, benign prostatic hypertrophy, urinary tract infection, and chronic kidney disease stage IV with baseline creatinine about 3.5 was admitted from the longterm with worsening renal function. 1. Renal failure, acute on chronic kidney disease, stage IV. 2. Anemia secondary to chronic kidney disease. 3. Urinary tract infection. 4. Hypertension. 5. Edema secondary to mild fluid overload. PLAN: Continue Rocephin until identification is available 1 g daily and consider ID evaluation and also check iron D with ferritin level. We will add Epogen 10,000 units 3 times a week and hold for hemoglobin more than 11 and also Garay catheter placement for monitoring urine output and also discontinue lisinopril. We will follow with you. Thank you for allowing me to participate in our patient's care. Emir Kirk MD
[2016-12-31] MEDS: (Novolog) Insulin Aspart, Recombinant 100 u/ml 10 ml vial SC SCH ×4 (08:30→22:26)
[2016-12-31] MEDS: Multivitamin Vitamin B Complex (Nephro-Vite) Tab PO SCH (09:00)
[2016-12-31] MEDS: Dextrose 5%/0.45% NS 1,000 ML IV SCH (10:04)
[2016-12-31] MEDS: cefTRIAXone IV 1 gm in Dextros 50 ML IVPB SCH (10:05)
[2016-12-31] MEDS: Multiple Vitamins Tab PO SCH (10:05)
[2016-12-31] MEDS: Pantoprazole 40 mg EC Tab PO SCH ×2 (10:05→18:04)
[2016-12-31] MEDS: Promethazine DM 6.25 mg-15 mg/5 ml Syrup PO SCH ×3 (10:07→18:04)
[2016-12-31] MEDS: Epoetin Alfa 10,000 unit/ml Dialysis SC SCH (11:42)
--- NOTE | 2016-12-31 13:22 | CP.PCM.PN ---
Subjective - Date & Time of Evaluation Date of Evaluation: 12/31/16 Time of Evaluation: 13:20 - Subjective Subjective: pain in both hips Objective - Vital Signs/Intake and Output Vital Signs (last 24 hours): Temp Pulse Resp BP Pulse Ox 98.4 F 97 H 20 119/76 98 12/31/16 08:22 12/31/16 08:22 12/31/16 08:22 12/31/16 10:05 12/31/16 08:22 Intake and Output: 12/31/16 12/31/16 06:59 18:59 Intake Total 700 Output Total 525 Balance 175 - Medications Medications: Current Medications Acetaminophen (Tylenol 325mg Tab) 650 mg PO Q6 PRN PRN Reason: Headache Last Admin: 12/30/16 19:59 Dose: 650 mg Albuterol/Ipratropium (Duoneb 3 Mg/0.5 Mg (3 Ml) Ud) [address] [facility] Last Admin: 12/31/16 07:44 Dose: 3 ml Allopurinol (Zyloprim) [address] [facility] Last Admin: 12/31/16 10:05 Dose: 100 mg Epoetin Kyle (Procrit) 10,[address] [facility] Last Admin: 12/31/16 11:42 Dose: 10,000 unit Ferrous Sulfate (Feosol) [address] [facility] Last Admin: 12/31/16 10:05 Dose: 325 mg Finasteride (Proscar) [address] [facility] Last Admin: 12/31/16 10:05 Dose: 5 mg Furosemide (Lasix) [address] [facility] Last Admin: 12/31/16 10:05 Dose: 20 mg Heparin Sodium (Porcine) (Heparin) 5,[address] [facility] Hydralazine HCl (Apresoline) [address] [facility] Last Admin: 12/31/16 10:05 Dose: 50 mg Dextrose/Sodium Chloride (Dextrose 5%/0.45% Ns 1000 Ml) 1,000 mls @ 50 mls/hr IV .Q20H [facility] Last Admin: 12/31/16 10:04 Dose: 50 mls/hr Ceftriaxone Sodium (Rocephin Iv 1 Gm Duplex) 50 mls @ 100 mls/hr IVPB DAILY [facility] Stop: 01/04/17 10:01 Last Admin: 09/16/17 10:05 Dose: 100 mls/hr Insulin Aspart (Novolog) [address] [facility] PRN Reason: Protocol Last Admin: 12/31/16 12:45 Dose: Not Given Multivitamins (Hexavitamin) [address] [facility] Last Admin: 12/31/16 10:05 Dose: 1 tab Pantoprazole Sodium (Protonix Ec Tab) [address] [facility] Last Admin: 12/31/16 10:05 Dose: 40 mg Pneumococcal Polyvalent Vaccine (Pneumovax 23 Vaccine) 0.5 ml IM .ONCE ONE Stop: 01/02/17 10:01 Promethazine HCl/Dextromethorphan (Phenergan Dm Syrup) [address] [facility] Last Admin: 12/31/16 10:07 Dose: 5 ml Tamsulosin HCl (Flomax) 0.[address] [facility] Last Admin: 12/31/16 10:05 Dose: 0.4 mg Vitamin B Complex/Vit C/Folic Acid (Nephro-Portia) 1 tab PO DAILY@0800 [facility] Last Admin: 12/31/16 09:00 Dose: 1 tab - Labs Labs: 12/30/16 11:42 12/30/16 11:42 PT 12.4 SECONDS (9.7-12.2) H 12/30/16 11:42 INR 1.1 12/30/16 11:42 APTT 31 SECONDS (21-34) 12/30/16 11:42 - Constitutional Appears: No Acute Distress, Chronically Ill - Eye Exam Eye Exam: Normal appearance - Respiratory Exam Respiratory Exam: Decreased Breath Sounds - Cardiovascular Exam Cardiovascular Exam: REGULAR RHYTHM, Murmur - GI/Abdominal Exam GI & Abdominal Exam: Soft - Extremities Exam Extremities Exam: Pedal Edema - Neurological Exam Neurological Exam: Alert, Oriented x3 Assessment and Plan - Assessment and Plan (Free Text) Assessment: todays lab na. will obtain x ray both hips. check vikas for ob. pulmonary & nephro consult stephany.
[2016-12-31 14:08] LABS: CALCIUM 8.5 mg/dl (8.6-10.4); POTASSIUM 4.6 mmol/L (3.6-5.2)
--- NOTE | 2016-12-31 15:53 | RAD ---
PROCEDURE: Radiographs of the pelvis and bilateral hips HISTORY: pain in both hips COMPARISON: None. FINDINGS: BONES: Pelvis: Unremarkable. Right hip:Unremarkable. Left hip:Unremarkable. JOINTS: Right hip: Moderate osteoarthritic changes. Left hip: Moderate osteoarthritic changes. Sacroiliac Joints: Unremarkable. Pubic symphysis: Unremarkable. SOFT TISSUES: Normal. OTHER FINDINGS: None. IMPRESSION: Suboptimal study due to the patient's body habitus. Moderate bilateral hip osteoarthritic changes.
--- NOTE | 2016-12-31 16:09 | CP.PCM.PN ---
Subjective - Date & Time of Evaluation Date of Evaluation: 12/31/16 Time of Evaluation: 16:08 - Subjective Subjective: pt is seen and examined, follow up consult is dictated #[id number] Objective - Vital Signs/Intake and Output Vital Signs (last 24 hours): Temp Pulse Resp BP Pulse Ox 98.9 F 100 H 20 146/78 95 12/31/16 16:00 12/31/16 16:00 12/31/16 16:00 12/31/16 16:00 12/31/16 16:00 Intake and Output: 12/31/16 12/31/16 06:59 18:59 Intake Total 700 Output Total 525 Balance 175 - Medications Medications: Current Medications Acetaminophen (Tylenol 325mg Tab) 650 mg PO Q6 PRN PRN Reason: Headache Last Admin: 12/30/16 19:59 Dose: 650 mg Albuterol/Ipratropium (Duoneb 3 Mg/0.5 Mg (3 Ml) Ud) 3 ml INH RQ6 [facility] Last Admin: 12/31/16 13:19 Dose: 3 ml Allopurinol (Zyloprim) 100 mg PO DAILY [facility] Last Admin: 12/31/16 10:05 Dose: 100 mg Epoetin Kyle (Procrit) 10,000 unit SC TTS [facility] Last Admin: 12/31/16 11:42 Dose: 10,000 unit Ferrous Sulfate (Feosol) 325 mg PO BID [facility] Last Admin: 12/31/16 10:05 Dose: 325 mg Finasteride (Proscar) 5 mg PO DAILY [facility] Last Admin: 12/31/16 10:05 Dose: 5 mg Furosemide (Lasix) 20 mg PO DAILY [facility] Last Admin: 12/31/16 10:05 Dose: 20 mg Heparin Sodium (Porcine) (Heparin) 5,000 units SC Q12 [facility] Hydralazine HCl (Apresoline) 50 mg PO DAILY [facility] Last Admin: 12/31/16 10:05 Dose: 50 mg Dextrose/Sodium Chloride (Dextrose 5%/0.45% Ns 1000 Ml) 1,000 mls @ 50 mls/hr IV .Q20H [facility] Last Admin: 12/31/16 10:04 Dose: 50 mls/hr Ceftriaxone Sodium (Rocephin Iv 1 Gm Duplex) 50 mls @ 100 mls/hr IVPB DAILY [facility] Stop: 01/04/17 10:01 Last Admin: 12/31/16 10:05 Dose: 100 mls/hr Insulin Aspart (Novolog) 0 unit SC ACHS [facility] PRN Reason: Protocol Last Admin: 12/31/16 12:45 Dose: Not Given Multivitamins (Hexavitamin) 1 tab PO DAILY [facility] Last Admin: 12/31/16 10:05 Dose: 1 tab Pantoprazole Sodium (Protonix Ec Tab) 40 mg PO BID [facility] Last Admin: 12/31/16 10:05 Dose: 40 mg Pneumococcal Polyvalent Vaccine (Pneumovax 23 Vaccine) 0.5 ml IM .ONCE ONE Stop: 01/02/17 10:01 Promethazine HCl/Dextromethorphan (Phenergan Dm Syrup) 5 ml PO TID [facility] Last Admin: 12/31/16 13:41 Dose: 5 ml Tamsulosin HCl (Flomax) 0.4 mg PO DAILY [facility] Last Admin: 12/31/16 10:05 Dose: 0.4 mg Vitamin B Complex/Vit C/Folic Acid (Nephro-Portia) 1 tab PO DAILY@0800 [facility] Last Admin: 12/31/16 09:00 Dose: 1 tab - Labs Labs: 12/30/16 11:42 12/31/16 14:02 PT 12.4 SECONDS (9.7-12.2) H 12/30/16 11:42 INR 1.1 12/30/16 11:42 APTT 31 SECONDS (21-34) 12/30/16 11:42
--- NOTE | 2016-12-31 18:25 | CP.PCM.PN ---
Subjective - Date & Time of Evaluation Date of Evaluation: 12/31/16 Time of Evaluation: 14:25 - Subjective Subjective: patient seen and examined Complaining of cough Denies fever chills or shortness of breath Complaining of back pain Objective - Vital Signs/Intake and Output Vital Signs (last 24 hours): Temp Pulse Resp BP Pulse Ox 98.9 F 100 H 20 146/78 95 12/31/16 16:00 12/31/16 16:00 12/31/16 16:00 12/31/16 16:00 12/31/16 16:00 Intake and Output: 12/31/16 12/31/16 06:59 18:59 Intake Total 700 750 Output Total 525 450 Balance 175 300 - Medications Medications: Current Medications Acetaminophen (Tylenol 325mg Tab) 650 mg PO Q6 PRN PRN Reason: Headache Last Admin: 12/30/16 19:59 Dose: 650 mg Albuterol/Ipratropium (Duoneb 3 Mg/0.5 Mg (3 Ml) Ud) 3 ml INH RQ6 [facility] Last Admin: 12/31/16 13:19 Dose: 3 ml Allopurinol (Zyloprim) 100 mg PO DAILY [facility] Last Admin: 12/31/16 10:05 Dose: 100 mg Epoetin Kyle (Procrit) 10,000 unit SC TTS [facility] Last Admin: 12/31/16 11:42 Dose: 10,000 unit Ferrous Sulfate (Feosol) 325 mg PO BID [facility] Last Admin: 12/31/16 18:04 Dose: 325 mg Finasteride (Proscar) 5 mg PO DAILY [facility] Last Admin: 12/31/16 10:05 Dose: 5 mg Furosemide (Lasix) 20 mg PO DAILY [facility] Last Admin: 12/31/16 10:05 Dose: 20 mg Heparin Sodium (Porcine) (Heparin) 5,000 units SC Q12 [facility] Hydralazine HCl (Apresoline) 50 mg PO DAILY [facility] Last Admin: 12/31/16 10:05 Dose: 50 mg Dextrose/Sodium Chloride (Dextrose 5%/0.45% Ns 1000 Ml) 1,000 mls @ 50 mls/hr IV .Q20H [facility] Last Admin: 12/31/16 10:04 Dose: 50 mls/hr Ceftriaxone Sodium (Rocephin Iv 1 Gm Duplex) 50 mls @ 100 mls/hr IVPB DAILY [facility] Stop: 01/04/17 10:01 Last Admin: 12/31/16 10:05 Dose: 100 mls/hr Insulin Aspart (Novolog) 0 unit SC ACHS [facility] PRN Reason: Protocol Last Admin: 12/31/16 17:44 Dose: Not Given Multivitamins (Hexavitamin) 1 tab PO DAILY [facility] Last Admin: 12/31/16 10:05 Dose: 1 tab Pantoprazole Sodium (Protonix Ec Tab) 40 mg PO BID [facility] Last Admin: 12/31/16 18:04 Dose: 40 mg Pneumococcal Polyvalent Vaccine (Pneumovax 23 Vaccine) 0.5 ml IM .ONCE ONE Stop: 01/02/17 10:01 Promethazine HCl/Dextromethorphan (Phenergan Dm Syrup) 5 ml PO TID [facility] Last Admin: 12/31/16 18:04 Dose: 5 ml Tamsulosin HCl (Flomax) 0.4 mg PO DAILY [facility] Last Admin: 12/31/16 10:05 Dose: 0.4 mg Vitamin B Complex/Vit C/Folic Acid (Nephro-Portia) 1 tab PO DAILY@0800 [facility] Last Admin: 12/31/16 09:00 Dose: 1 tab - Labs Labs: 12/30/16 11:42 12/31/16 14:02 PT 12.4 SECONDS (9.7-12.2) H 12/30/16 11:42 INR 1.1 12/30/16 11:42 APTT 31 SECONDS (21-34) 12/30/16 11:42 - Constitutional Appears: No Acute Distress - Head Exam Head Exam: ATRAUMATIC, NORMOCEPHALIC - Eye Exam Eye Exam: EOMI - ENT Exam ENT Exam: Mucous Membranes Moist - Neck Exam Neck Exam: Normal Inspection - Respiratory Exam Respiratory Exam: Rales - Cardiovascular Exam Cardiovascular Exam: REGULAR RHYTHM - GI/Abdominal Exam GI & Abdominal Exam: Soft, Normal Bowel Sounds Assessment and Plan (1) Abnormal chest xray Assessment & Plan: continue antibiotics Followup chest x-ray Antitussive Renal workup Status: Acute (2) Acute on chronic renal failure Status: Acute
[2017-01-01] MEDS: Albuterol-Ipratrop 3 mg / 0.5 (3 ml) UD INH SCH ×5 (00:17→19:29)
[2017-01-01] MEDS: (Novolog) Insulin Aspart, Recombinant 100 u/ml 10 ml vial SC SCH ×4 (08:30→21:34)
[2017-01-01] MEDS: Multivitamin Vitamin B Complex (Nephro-Vite) Tab PO SCH (08:59)
--- NOTE | 2017-01-01 10:21 | CARD ---
APPROVED REPORT EKG Measurement Heart [id number] <Conclusion> Sinus rhythm with occasional premature ventricular complexes Otherwise normal ECG
[2017-01-01] MEDS: Pantoprazole 40 mg EC Tab PO SCH ×2 (10:27→17:38)
[2017-01-01] MEDS: Multiple Vitamins Tab PO SCH (10:27)
[2017-01-01] MEDS: Promethazine DM 6.25 mg-15 mg/5 ml Syrup PO SCH ×3 (10:28→17:31)
[2017-01-01] MEDS: cefTRIAXone IV 1 gm in Dextros 50 ML IVPB SCH (10:53)
--- NOTE | 2017-01-01 11:56 | CP.PCM.PN ---
Subjective - Date & Time of Evaluation Date of Evaluation: 01/01/17 Time of Evaluation: 11:55 - Subjective Subjective: weak.poor appetite Objective - Vital Signs/Intake and Output Vital Signs (last 24 hours): Temp Pulse Resp BP Pulse Ox 98.5 F 94 H 20 122/71 96 01/01/17 10:10 01/01/17 10:10 01/01/17 10:10 01/01/17 10:27 01/01/17 10:10 Intake and Output: 01/01/17 01/01/17 06:59 18:59 Output Total 600 Balance -600 - Medications Medications: Current Medications Acetaminophen (Tylenol 325mg Tab) 650 mg PO Q6 PRN PRN Reason: Headache Last Admin: 01/01/17 00:14 Dose: 650 mg Albuterol/Ipratropium (Duoneb 3 Mg/0.5 Mg (3 Ml) Ud) 3 ml INH RQ6 [facility] Last Admin: 01/01/17 02:40 Dose: Not Given Allopurinol (Zyloprim) 100 mg PO DAILY [facility] Last Admin: 01/01/17 10:27 Dose: 100 mg Epoetin Kyle (Procrit) 10,000 unit SC TTS [facility] Last Admin: 12/31/16 11:42 Dose: 10,000 unit Ferrous Sulfate (Feosol) 325 mg PO BID [facility] Last Admin: 01/01/17 10:27 Dose: 325 mg Finasteride (Proscar) 5 mg PO DAILY [facility] Last Admin: 01/01/17 10:27 Dose: 5 mg Furosemide (Lasix) 20 mg PO DAILY [facility] Last Admin: 01/01/17 10:27 Dose: 20 mg Heparin Sodium (Porcine) (Heparin) 5,000 units SC Q12 [facility] Hydralazine HCl (Apresoline) 50 mg PO DAILY [facility] Last Admin: 01/01/17 10:27 Dose: 50 mg Dextrose/Sodium Chloride (Dextrose 5%/0.45% Ns 1000 Ml) 1,000 mls @ 50 mls/hr IV .Q20H [facility] Last Admin: 12/31/16 10:04 Dose: 50 mls/hr Ceftriaxone Sodium (Rocephin Iv 1 Gm Duplex) 50 mls @ 100 mls/hr IVPB DAILY [facility] Stop: 01/04/17 10:01 Last Admin: 01/01/17 10:53 Dose: 100 mls/hr Insulin Aspart (Novolog) 0 unit SC ACHS [facility] PRN Reason: Protocol Last Admin: 01/01/17 08:30 Dose: Not Given Multivitamins (Hexavitamin) 1 tab PO DAILY [facility] Last Admin: 01/01/17 10:27 Dose: 1 tab Pantoprazole Sodium (Protonix Ec Tab) 40 mg PO BID [facility] Last Admin: 01/01/17 10:27 Dose: 40 mg Pneumococcal Polyvalent Vaccine (Pneumovax 23 Vaccine) 0.5 ml IM .ONCE ONE Stop: 01/02/17 10:01 Promethazine HCl/Dextromethorphan (Phenergan Dm Syrup) 5 ml PO TID [facility] Last Admin: 01/01/17 10:28 Dose: 5 ml Tamsulosin HCl (Flomax) 0.4 mg PO DAILY [facility] Last Admin: 01/01/17 10:27 Dose: 0.4 mg Vitamin B Complex/Vit C/Folic Acid (Nephro-Portia) 1 tab PO DAILY@0800 [facility] Last Admin: 01/01/17 08:59 Dose: 1 tab - Labs Labs: 12/30/16 11:42 12/31/16 14:02 PT 12.4 SECONDS (9.7-12.2) H 12/30/16 11:42 INR 1.1 12/30/16 11:42 APTT 31 SECONDS (21-34) 12/30/16 11:42 - Constitutional Appears: Chronically Ill - Head Exam Head Exam: NORMOCEPHALIC - Neck Exam Neck Exam: Normal Inspection - Respiratory Exam Respiratory Exam: Decreased Breath Sounds - Extremities Exam Extremities Exam: Pedal Edema - Neurological Exam Neurological Exam: Alert, Oriented x3 Assessment and Plan - Assessment and Plan (Free Text) Assessment: ckd,cr still 5.4, x ray oa. glucerna
[2017-01-01 13:14] LABS: CHLORIDE URINE 104 mmol/L (32-290)
--- NOTE | 2017-01-01 15:44 | CP.PCM.CON ---
History of Present Illness - History of Present Illness History of Present Illness: 76-year-old male with history of anemia, hypertension, CKD was transferred from rehabilitation for worsening renal function. Chest x-ray consistent with by basilar changes. Patient denies cough, denies fever chills, denies shortness of breath, denies chest pain ID CONSULTED FOR POSSIBLE PNEUMONIA 1. CAITLYN on ckd 2. htn 3. anemia 4. s/p uti 5.bph Review of Systems - Constitutional Constitutional: As Per HPI, Chills, Malaise, Weakness - EENT Eyes: absent: As Per HPI, Blind Spots, Blurred Vision, Change in Vision, Decreased Night Vision, Diplopia, Discharge, Dry Eye, Exophthalmos, Floaters, Irritation, Itchy Eyes, Loss of Peripheral Vision, Pain, Photophobia, Requires Corrective Lenses, Sees Flashes, Spots in Vision, Tunnel Vision, Other Visual Disturbances, Loss of Vision, Other Ears: absent: As Per HPI, Decreased Hearing, Ear Discharge, Ear Pain, Tinnitus, Abnormal Hearing, Disequilibrium, Dizziness, Other Nose/Mouth/Throat: absent: As Per HPI, Epistaxis, Nasal Congestion, Nasal Discharge, Nasal Obstruction, Nasal Trauma, Nose Pain, Post Nasal Drip, Sinus Pain, Sinus Pressure, Bleeding Gums, Change in Voice, Dental Pain, Dry Mouth, Dysphagia, Halitosis, Hoarsness, Lip Swelling, Mouth Lesions, Mouth Pain, Odynophagia, Sore Throat, Throat Swelling, Tongue Swelling, Facial Pain, Neck Pain, Neck Mass, Other - Cardiovascular Cardiovascular: As Per HPI - Respiratory Respiratory: As Per HPI, Cough, Dyspnea, Dyspnea on Exertion. absent: Hemoptysis - Gastrointestinal Gastrointestinal: absent: As Per HPI, Abdominal Pain, Belching, Bloating, Change in Bowel Habits, Change in Stool Character, Coffee Ground Emesis, Constipation, Cramping, Diarrhea, Dyspepsia, Dysphagia, Early Satiety, Excessive Flatus, Fecal Incontinence, Heartburn, Hematemesis, Hematochezia, Loose Stools, Melena, Nausea, Odynophagia, Temesmus, Vomiting, Other - Genitourinary Genitourinary: As Per HPI - Musculoskeletal Musculoskeletal: As Per HPI, Abnormal Gait, Muscle Weakness, Myalgias - Integumentary Integumentary: As Per HPI - Neurological Neurological: absent: As Per HPI, Abnormal Gait, Abnormal Hearing, Abnormal Movements, Abnormal Speech, Behavioral Changes, Burning Sensations, Confusion, Convulsions, Disequilibrium, Dizziness, Numbness, Focal Weakness, Frequent Falls , Headaches, Lack of Coordination, Loss of Vision, Memory Loss, Paresthesias, Radicular Pain, Restless Legs, Sensory Deficit, Syncope, Tingling, Tremor, Vertigo, Weakness, Other Visual Disturbances, Other - Psychiatric Psychiatric: absent: As Per HPI, Abnormal Sleep Pattern, Anhedonia, Anxiety, Auditory Hallucinations, Behavioral Changes, Change in Appetite, Change in Libido, Confusion, Depression, Difficulty Concentrating, Hallucinations, Homicidal Ideation, Hopelessness, Irritability, Memory Loss, Mood Swings, Panic Attacks, Paranoia, Suicidal Ideation, Visual Hallucinations, Tactile Hallucinations, Other - Endocrine Endocrine: absent: As Per HPI, Change in Body Appearance, Change in Libido, Cold Intolorance, Deepening of Voice, Excessive Sweating, Fatigue, Flushing, Heat Intolorance, Increase in Ring/Shoe/Hat Size, Palpitations, Polydipsia, Polyphagia, Polyuria, Other - Hematologic/Lymphatic Hematologic: absent: As Per HPI, Easy Bleeding, Easy Bruising, Lymphadenopathy, Other Past Patient History - Past Medical History & Family History Past Medical History?: Yes - Past Social History Smoking Status: Former Smoker - CARDIAC Hx Hypercholesterolemia: Yes Hx Hypertension: Yes - PULMONARY Hx Respiratory Disorders: No Other/Comment: former smoker, SOB with exertion - NEUROLOGICAL Hx Neurological Disorder: No - HEENT Hx HEENT Problems: No - RENAL Hx Chronic Kidney Disease: Yes - ENDOCRINE/METABOLIC Hx Endocrine Disorders: Yes Hx Diabetes Mellitus Type 2: Yes - HEMATOLOGICAL/ONCOLOGICAL Hx Anemia: Yes - INTEGUMENTARY Hx Dermatological Problems: No - MUSCULOSKELETAL/RHEUMATOLOGICAL Hx Musculoskeletal Disorders: Yes Hx Falls: Yes Other/Comment: BLE weakness - GASTROINTESTINAL Hx Gastrointestinal Disorders: No Other/Comment: abdominal area distended - GENITOURINARY/GYNECOLOGICAL Hx Genitourinary Disorders: Yes Other/Comment: BPH - PSYCHIATRIC Hx Substance Use: No - SURGICAL HISTORY Hx Appendectomy: Yes - ANESTHESIA Hx Anesthesia: Yes Meds Allergies/Adverse Reactions: Allergies Allergy/AdvReac Type Severity Reaction Status Date / Time calcium carbonate [From Tums] Allergy Verified 12/29/16 17:40 dates Allergy Uncoded 12/29/16 17:40 - Medications Medications: Current Medications Acetaminophen (Tylenol 325mg Tab) 650 mg PO Q6 PRN PRN Reason: Headache Last Admin: 01/01/17 00:14 Dose: 650 mg Albuterol/Ipratropium (Duoneb 3 Mg/0.5 Mg (3 Ml) Ud) 3 ml INH RQ6 [facility] Last Admin: 01/01/17 13:28 Dose: 3 ml Allopurinol (Zyloprim) 100 mg PO DAILY [facility] Last Admin: 01/01/17 10:27 Dose: 100 mg Epoetin Kyle (Procrit) 10,000 unit SC TTS [facility] Last Admin: 12/31/16 11:42 Dose: 10,000 unit Ferrous Sulfate (Feosol) 325 mg PO BID [facility] Last Admin: 01/01/17 10:27 Dose: 325 mg Finasteride (Proscar) 5 mg PO DAILY [facility] Last Admin: 01/01/17 10:27 Dose: 5 mg Furosemide (Lasix) 20 mg PO DAILY [facility] Last Admin: 01/01/17 10:27 Dose: 20 mg Heparin Sodium (Porcine) (Heparin) 5,000 units SC Q12 [facility] Hydralazine HCl (Apresoline) 50 mg PO DAILY [facility] Last Admin: 01/01/17 10:27 Dose: 50 mg Dextrose/Sodium Chloride (Dextrose 5%/0.45% Ns 1000 Ml) 1,000 mls @ 50 mls/hr IV .Q20H [facility] Last Admin: 12/31/16 10:04 Dose: 50 mls/hr Ceftriaxone Sodium (Rocephin Iv 1 Gm Duplex) 50 mls @ 100 mls/hr IVPB DAILY [facility] Stop: 01/04/17 10:01 Last Admin: 01/01/17 10:53 Dose: 100 mls/hr Insulin Aspart (Novolog) 0 unit SC ACHS [facility] PRN Reason: Protocol Last Admin: 01/01/17 12:30 Dose: Not Given Multivitamins (Hexavitamin) 1 tab PO DAILY [facility] Last Admin: 01/01/17 10:27 Dose: 1 tab Pantoprazole Sodium (Protonix Ec Tab) 40 mg PO BID [facility] Last Admin: 01/01/17 10:27 Dose: 40 mg Pneumococcal Polyvalent Vaccine (Pneumovax 23 Vaccine) 0.5 ml IM .ONCE ONE Stop: 01/02/17 10:01 Promethazine HCl/Dextromethorphan (Phenergan Dm Syrup) 5 ml PO TID [facility] Last Admin: 01/01/17 13:55 Dose: 5 ml Tamsulosin HCl (Flomax) 0.4 mg PO DAILY [facility] Last Admin: 01/01/17 10:27 Dose: 0.4 mg Vitamin B Complex/Vit C/Folic Acid (Nephro-Portia) 1 tab PO DAILY@0800 [facility] Last Admin: 01/01/17 08:59 Dose: 1 tab Physical Exam - Constitutional Appears: Non-toxic, No Acute Distress, Chronically Ill - Head Exam Head Exam: ATRAUMATIC, NORMAL INSPECTION, NORMOCEPHALIC - Eye Exam Eye Exam: EOMI, PERRL. absent: Scleral icterus - ENT Exam ENT Exam: Mucous Membranes Dry, Normal External Ear Exam, Normal Oropharynx - Neck Exam Neck exam: Negative for: Lymphadenopathy, Thyromegaly - Respiratory Exam Respiratory Exam: Decreased Breath Sounds, Clear to Auscultation Bilateral, Rales - Cardiovascular Exam Cardiovascular Exam: REGULAR RHYTHM, +S1, +S2 - GI/Abdominal Exam GI & Abdominal Exam: Diminished Bowel Sounds, Soft. absent: Tenderness - Rectal Exam Rectal Exam: Deferred - Exam Exam: NORMAL INSPECTION - Extremities Exam Extremities exam: Positive for: pedal pulses present. Negative for: calf tenderness, pedal edema, tenderness - Back Exam Back exam: absent: CVA tenderness (L), CVA tenderness (R), paraspinal tenderness - Neurological Exam Neurological exam: Alert, CN II-XII Intact, Oriented x3, Reflexes Normal - Psychiatric Exam Psychiatric exam: Depressed - Skin Skin Exam: Dry, Intact Results - Vital Signs Recent Vital Signs: Last Vital Signs Temp 98.9 F 01/01/17 15:28 Pulse 111 H 01/01/17 15:28 Resp 20 01/01/17 15:28 BP 150/76 01/01/17 15:28 Pulse Ox 96 01/01/17 15:28 - Labs Result Diagrams: 12/30/16 11:42 12/31/16 14:02 Labs: Laboratory Results - last 24 hr 12/31/16 12/31/16 12/31/16 09:25 16:28 20:59 POC Glucose (mg/dL) 129 H 127 H Urine Chloride 104 01/01/17 01/01/17 06:47 12:19 POC Glucose (mg/dL) 130 H 102 Urine Chloride Assessment & Plan (1) Abnormal chest xray Status: Acute (2) Acute on chronic renal failure Status: Acute (3) UTI (urinary tract infection) Status: Acute (4) Anemia Status: Acute (5) Confusion and disorientation Status: Acute (6) Hyperkalemia Status: Acute (7) Hyponatremia Status: Acute (8) Obstructive uropathy Status: Acute (9) Symptomatic anemia Status: Acute - Assessment and Plan (Free Text) Assessment: 1. CAITLYN on ckd 2. htn 3. anemia 4. s/p uti 5.bph 6 R/O PNEUMONIA/ SEPSIS Plan: CONT IV ANTIBIOTICS CHECK CULTURES
[2017-01-01] MEDS: Dextrose 5%/0.45% NS 1,000 ML IV SCH ×2 (16:29→19:50)
[2017-01-01] MEDS: Meropenem 500 MG in Sodium Chloride 0.9% 100 ML IVPB SCH (17:29)
--- NOTE | 2017-01-01 18:44 | CP.PCM.PN ---
Subjective - Date & Time of Evaluation Date of Evaluation: 01/01/17 Time of Evaluation: 18:44 - Subjective Subjective: pt is seen and examined, follow up consult is dictated #[id number] Objective - Vital Signs/Intake and Output Vital Signs (last 24 hours): Temp Pulse Resp BP Pulse Ox 98.9 F 111 H 20 150/76 96 01/01/17 15:28 01/01/17 15:28 01/01/17 15:28 01/01/17 15:28 01/01/17 15:28 Intake and Output: 01/01/17 01/01/17 06:59 18:59 Intake Total 700 Output Total 600 400 Balance -600 300 - Medications Medications: Current Medications Acetaminophen (Tylenol 325mg Tab) 650 mg PO Q6 PRN PRN Reason: Headache Last Admin: 01/01/17 00:14 Dose: 650 mg Albuterol/Ipratropium (Duoneb 3 Mg/0.5 Mg (3 Ml) Ud) 3 ml INH RQ6 [facility] Last Admin: 01/01/17 13:28 Dose: 3 ml Allopurinol (Zyloprim) 100 mg PO DAILY [facility] Last Admin: 01/01/17 10:27 Dose: 100 mg Epoetin Kyle (Procrit) 10,000 unit SC TTS [facility] Last Admin: 12/31/16 11:42 Dose: 10,000 unit Ferrous Sulfate (Feosol) 325 mg PO BID [facility] Last Admin: 01/01/17 17:38 Dose: 325 mg Finasteride (Proscar) 5 mg PO DAILY [facility] Last Admin: 01/01/17 10:27 Dose: 5 mg Furosemide (Lasix) 20 mg PO DAILY [facility] Last Admin: 01/01/17 10:27 Dose: 20 mg Heparin Sodium (Porcine) (Heparin) 5,000 units SC Q12 [facility] Hydralazine HCl (Apresoline) 50 mg PO DAILY [facility] Last Admin: 01/01/17 10:27 Dose: 50 mg Dextrose/Sodium Chloride (Dextrose 5%/0.45% Ns 1000 Ml) 1,000 mls @ 50 mls/hr IV .Q20H [facility] Last Admin: 01/01/17 16:29 Dose: 50 mls/hr Meropenem 500 mg/ Sodium (Chloride) 100 mls @ 100 mls/hr IVPB Q8H [facility] Last Admin: 01/01/17 17:29 Dose: 100 mls/hr Insulin Aspart (Novolog) 0 unit SC ACHS [facility] PRN Reason: Protocol Last Admin: 01/01/17 17:30 Dose: Not Given Multivitamins (Hexavitamin) 1 tab PO DAILY [facility] Last Admin: 01/01/17 10:27 Dose: 1 tab Pantoprazole Sodium (Protonix Ec Tab) 40 mg PO BID [facility] Last Admin: 01/01/17 17:38 Dose: 40 mg Pneumococcal Polyvalent Vaccine (Pneumovax 23 Vaccine) 0.5 ml IM .ONCE ONE Stop: 01/02/17 10:01 Promethazine HCl/Dextromethorphan (Phenergan Dm Syrup) 5 ml PO TID [facility] Last Admin: 01/01/17 17:31 Dose: Not Given Tamsulosin HCl (Flomax) 0.4 mg PO DAILY [facility] Last Admin: 01/01/17 10:27 Dose: 0.4 mg Vitamin B Complex/Vit C/Folic Acid (Nephro-Portia) 1 tab PO DAILY@0800 [facility] Last Admin: 01/01/17 08:59 Dose: 1 tab - Labs Labs: 12/30/16 11:42 12/31/16 14:02 PT 12.4 SECONDS (9.7-12.2) H 12/30/16 11:42 INR 1.1 12/30/16 11:42 APTT 31 SECONDS (21-34) 12/30/16 11:42
[2017-01-01 21:13] LABS: ABG ALLEN TEST POS; ARTERIAL BLOOD HGB O2 SAT 96.4 % (95.0-98.0); CARBOXYHEMOGLOBIN 1.3 % (0.5-1.5); DRAW SITE RBA; HHB 1.4 % (0.0-5.0); METHEMOGLOBIN 0.9 % (0.0-3.0)
[2017-01-01 21:48] LABS: CALCIUM 7.2 mg/dl (8.6-10.4); POTASSIUM 4.5 mmol/L (3.6-5.2)
[2017-01-01] MEDS ORDERED: Dextrose 5%/0.9% NS 1,000 ML IV ONE (22:33)
[2017-01-02] MEDS: Meropenem 500 MG in Sodium Chloride 0.9% 100 ML IVPB SCH ×3 (01:40→21:31)
[2017-01-02] MEDS: Albuterol-Ipratrop 3 mg / 0.5 (3 ml) UD INH SCH ×4 (02:02→20:12)
--- NOTE | 2017-01-02 02:51 | PN ---
The patient is located in room 670, bed B. REQUESTED BY: Rigo oCmer MD REASON FOR FOLLOWUP: Acute renal failure, chronic kidney disease, and urosepsis. SUBJECTIVE: The patient is a 76-year-old elderly, obese male with a history of longstanding hypertension, BPH, chronic kidney disease, anemia, depression, who was [facility] with worsening [facility] function and the patient was found to have UTI with Klebsiella pneumonia and Proteus mirabilis. The patient was tolerated initially Rocephin and the patient is resistant to most of the antibiotics for Proteus mirabilis and infectious disease consult was requested and the patient was started on Merrem today which is sensitive to both Klebsiella pneumonia and Proteus mirabilis. The patient is not in acute distress. Denies any complaints. No chest pain. No palpitation. No fever. No cough. The patient does complaint of swelling of the legs. PHYSICAL EXAMINATION: VITAL SIGNS: Blood pressure 137/71, pulse is 115, respirations 20, temperature is 99.1, and saturation is 95%. Height is 5 feet 7 inches and weight is 190 pounds. GENERAL: The patient is a 76-year-old elderly, obese male, well built and well nourished, not in distress. HEENT: Pupils are normal and reactive to light and accommodation. Conjunctivae are pink. Sclerae are anicteric. Tongue is moist. Trachea is midline. LUNGS: Symmetrical on both sides. Bilateral breath sounds present. Clear on auscultation. CARDIOVASCULAR SYSTEM: [place] at the fifth intercostal space, midclavicular line. S1 and S2 audible. No murmur and no gallop. ABDOMEN: Normal in appearance. Soft and tympanic. No guarding. No rigidity. No hepatosplenomegaly. Abdomen is protuberant. CENTRAL NERVOUS SYSTEM: The patient is alert, awake, and oriented x2-3. Sensory and motor system is grossly within normal limits. EXTREMITIES: No cyanosis and no clubbing. The patient has 1 to 2+ edema in both lower extremities. CURRENT MEDICATIONS: Include as follows: Hydralazine 50 mg p.o. daily, D5 normal saline at 50 mL per hour, DuoNeb inhaler, Lasix 40 mg daily, multivitamins, Flomax, Merrem 500 mg q.8 hours, Nephro-Portia 1 tablet daily, Phenergan DM, Epogen 3 times a week, Proscar 5 mg p.o. daily, Protonix 40 mg p.o. b.i.d., Tylenol and allopurinol 100 mg p.o. daily. LABORATORY DATA: Include as follows; pH 7.39, PCO2 34, PO2 96, bicarb is 21.9, saturation 98.6. Sodium is 129, potassium 4.5, chloride is 100, CO2 is 19, BUN is 47, creatinine 4.8, glucose is 210 and calcium is 7.2. ASSESSMENT: In summary, the patient is a 76-year-old elderly male with hypertension, chronic kidney disease, benign prostatic hypertrophy, an anemia. 1. Renal failure, acute on chronic kidney disease. 2. Urinary tract infection. 3. Anemia. 4. Hypertension. 5. Mild fluid overload. PLAN: Consider to discontinue IV fluids and continue Lasix 40 mg daily. Continue Procrit 3 times a week and continue antibiotics as per Dr. Gutiérrez. We will follow with you. Thank you for allowing me to participate in your patient's care. Emir Kirk MD
[2017-01-02 07:32] LABS: HEMATOCRIT 24.2 % (35.0-51.0); MEAN CELL VOLUME 87.3 fL (80.0-94.0); MEAN CORPUSCULAR HEMOGLOBIN 28.9 pg (27.0-31.0); MEAN CORPUSCULAR HGB CONC 33.1 g/dL (33.0-37.0); MEAN PLATELET VOLUME 7.5 fL (7.2-11.7); RED CELL DISTRIBUTION WIDTH 17.9 % (11.5-14.5); WHITE BLOOD COUNT 5.7 K/uL (4.8-10.8)
--- NOTE | 2017-01-02 07:33 | RAD ---
PROCEDURE: CHEST RADIOGRAPH, 1 VIEW HISTORY: elevated hr COMPARISON: Portable chest 12/29/2016. FINDINGS: LUNGS: Interval atelectasis or infiltrate is appreciate the bilateral inferior lung zones PLEURA: Trace left pleural effusion not excluded in the interval. None is seen at the right. There is no apparent pneumothorax bilaterally. CARDIOVASCULAR: Ashley sulcal reveals stable. There is no pulmonary derangement identified. Trachea remains midline. OSSEOUS STRUCTURES: No significant abnormalities. VISUALIZED UPPER ABDOMEN: Normal. OTHER FINDINGS: None. IMPRESSION: Interval bilateral inferior pulmonary infiltrates or atelectasis which trace of pleural effusion not excluded.
--- NOTE | 2017-01-02 07:58 | HP ---
HISTORY OF PRESENT ILLNESS: This 76-year-old gentleman was brought back from rehab because of the increasing creatinine. His baseline creatinine has been around 2.5, it was 5.4. The patient was also somewhat edematous. He has a longstanding history of borderline diabetes, hypertension, chronic kidney disease. He also has been anemic. His baseline hemoglobin is around 9 g, he is on Procrit. The patient has been seen and followed by Dr. Kirk. He has been on Proscar, Flomax, Lasix, hydralazine. Denies any chest pains. He does feel weak and shortness of breath. ALLERGIES: DENIED. PERSONAL HISTORY: Does not smoke. Does not drink. FAMILY HISTORY: Mother has diabetes and hypertension. One brother had hypertrophic cardiomyopathy. REVIEW OF SYSTEMS: CONSTITUTIONAL: Denies weakness. No fever. No chills. No hearing loss. Cough is noted. No hemoptysis. Shortness of breath on minimal exertion and edema in both the legs. GI: Negative for hematemesis or melena. He had upper endoscopy and colonoscopy done, which showed gastritis. No masses. Dr. Truong had followed him. : Seen by Dr. Montoya in the past, had a cystoscopy done. He also has an UTI in the past with Klebsiella. NEUROLOGICAL: Negative for TIA or CVA's. PSYCH: Negative for depression. RHEUMATOLOGIC: Arthritis, the patient has multiple joint pains. PAST MEDICAL HISTORY: History of hypertension, diabetes, chronic kidney disease. PHYSICAL EXAMINATION: GENERAL: Shows elderly gentleman who is conscious, alert, chronically sick looking, but in no acute distress. He is 5 feet 6 inch and weighs 200 pounds. VITAL SIGNS: His blood pressure is 160/70, earlier was 170/90, heart rate of 88, respiratory rate of 20, afebrile. HEENT: Head is normocephalic. Eyes, no pallor. No icterus. MOUTH: No exudates. LUNGS: Shows scattered rhonchi, mild expiratory wheeze. HEART: Sounds are distant without any definite gallops. ABDOMEN: Soft, nontender. EXTREMITIES: Shows 2+ pitting edema, knee down. Distal pulses are feeble, but palpable. NEUROLOGIC: The patient is awake, alert, and oriented x3. PSYCHIATRIC: No evidence of depression. LABORATORY DATA: Creatinine is 5.4. Hemoglobin is 8.6. Cultures are pending. ASSESSMENT: A 76-year-old gentleman with history of worsening of acute kidney failure, hypertension, diabetes and possible urinary tract infection. PLAN: Culture him. Continue hydralazine. Nephrology followup. Also, needs a pulmonary followup. Chest x-ray was essentially unremarkable. Rigo Comer MD
[2017-01-02] MEDS: (Novolog) Insulin Aspart, Recombinant 100 u/ml 10 ml vial SC SCH ×4 (08:20→21:41)
[2017-01-02 08:40] LABS: PHOSPHOROUS 4.8 mg/dL (2.5-4.5); POTASSIUM 4.1 mmol/L (3.6-5.2)
[2017-01-02] MEDS: Pantoprazole 40 mg EC Tab PO SCH ×2 (09:32→17:48)
[2017-01-02] MEDS: Multivitamin Vitamin B Complex (Nephro-Vite) Tab PO SCH (09:32)
--- NOTE | 2017-01-02 09:32 | US ---
Abdominal ultrasound History: Abdominal pain. Evaluate pyelonephritis. Comparison: None available. Technique: Real-time sonography was performed through the abdomen. Findings: Liver: 15.4 centimeters in length. Increased echogenicity of the hepatic parenchymal cortex suggestive for fatty infiltration versus hepatic parenchymal disease. Clinical correlation. Gallbladder: Somewhat contracted. Prominent amount of calculi and or sludge. Gallbladder wall is mildly thickened measuring up to 4 millimeters. Suggestion of pericholecystic fluid and or wall edema. Clinical correlation. Common bile duct measures 3.4 millimeters. Visualized portions of the pancreas are preserved. Pancreatic tail not well visualized. Spleen measures 10.3 centimeters in length, within normal limits. Visualized aorta and IVC are grossly preserved. Right kidney: 10.5 x 4.9 x 5.7 centimeters. Increased echogenicity of the renal parenchymal cortex suggestive for medical renal disease. No calculi or hydronephrosis. Trace perinephric fluid. Left Kidney: 11.9 x 5.6 x 6.1 centimeters. Increased echogenicity of the renal parenchymal cortex suggestive for medical renal disease. Midpole hypoechoic cyst measuring 9 x 8 x 9 millimeters. No calculi or hydronephrosis. Trace perinephric fluid. Study somewhat limited secondary to large patient body habitus. Impression: Increased echogenicity of the hepatic parenchymal cortex suggestive for fatty infiltration versus hepatic parenchymal disease. Clinical correlation. Somewhat contracted gallbladder with multiple calculi and or sludge. Gallbladder wall thickening up to 4 millimeters. Associated trace pericholecystic fluid and/or edema. These findings are equivocal. If there is concern for cholecystitis, consider further evaluation with nuclear medicine study. Limited visualization of the pancreatic tail. Increased echogenicity of the bilateral renal cortices suggestive for medical renal disease. Trace fluid at the level of the bilateral kidneys, nonspecific. If there is concern for acute pyelonephritis, correlation with a contrast-enhanced CT is recommended. 9 millimeter midpole hypoechoic left renal cyst.
[2017-01-02] MEDS: Multiple Vitamins Tab PO SCH (09:33)
[2017-01-02] MEDS: Promethazine DM 6.25 mg-15 mg/5 ml Syrup PO SCH ×3 (09:34→18:37)
--- NOTE | 2017-01-02 09:55 | CON ---
FOLLOWUP RENAL CONSULTATION LOCATION: The patient is located in room 670, bed B. REQUESTED BY: Dr. Rigo Comer. REASON FOR FOLLOWUP: Acute renal failure, chronic kidney disease, for further followup. SUBJECTIVE: The patient is a 76 years old elderly male, obese, with a history of hypertension; chronic kidney disease, stage IV; anemia; depression; and BPH; UTI; was admitted from the correction with worsening renal function. The patient was found to have urinary tract infection and positive for gram-negative rods with Klebsiella pneumoniae and Proteus mirabilis. The patient is not in acute distress. Denies any complaints. Urine is very cloudy. No chest pain, no palpitation, no fever. No cough. The patient does complain of swelling of the both legs. PHYSICAL EXAMINATION: GENERAL: The patient is a 76-year-old elderly male with multiple medical problems, moderately built, moderately nourished, not in acute distress. VITAL SIGNS: As follows; blood pressure 119/76, pulse 92, respirations 20, temperature 98.4, saturation 98%. Height 5 feet 7 inches. Weight is 187 pounds. HEENT: Pupils, reactive to light and accommodation. Conjunctivae pink. Sclerae anicteric. Tongue is moist. Trachea is midline. CARDIOVASCULAR SYSTEM: [place] at the fifth intercostal space, midclavicular line. S1, S2 audible. No murmur or gallop. LUNGS: Symmetrical on both sides. Bilateral breath sounds present. Clear on auscultation. ABDOMEN: Protuberant. Soft, tympanic. No guarding. No rigidity. No hepatosplenomegaly. EXTREMITIES: No cyanosis, no clubbing. The patient has 2+ edema in both lower extremities. CENTRAL NERVOUS SYSTEM: The patient is alert, awake, oriented x2 to 3. Sensory and motor system is grossly within normal limits. Cranial nerves II through XII grossly intact. LABORATORY DATA: Include as follows, as of 12/31/2016; sodium 136, potassium 4.6, chloride 99, CO2 of 22, BUN 49, creatinine 5.4, glucose 106, calcium 8.5. A 24-hour urine collection; volume is 1100 and creatinine clearance is 8, and 24-hour urine protein is 473 mg and urine culture is positive for Klebsiella pneumoniae and Proteus mirabilis. CURRENT MEDICATIONS: Include as follows; hydralazine 50 mg p.o. daily, D5 half normal saline at 50 mL per hour, DuoNeb inhaler, Flomax 0.4 mg p.o. daily, subQ heparin 5000 q.12 hours, multivitamin 1 tablet daily, Lasix 20 mg p.o. daily, Nephro-Portia 1 tablet daily, Phenergan DM syrup, and also Procrit 10,000 units 3 times a week, Proscar 5 mg daily, Protonix 40 mg b.i.d., Rocephin 1 g daily, Tylenol, and allopurinol. ASSESSMENT ND PLAN: In summary, the patient is a 76-year-old elderly, obese [place] male with a history of hypertension, benign prostatic hypertrophy, chronic kidney disease, anemia, depression, urinary tract infection, was admitted with worsening renal function and bilateral leg swelling, low H and H. 1. Renal failure, most likely acute on chronic stage IV chronic kidney disease, cannot rule out progression of the chronic kidney disease, IV to end-stage renal disease. 2. Urinary tract infection. 3. Anemia secondary to chronic kidney disease. 4. Mild fluid overload. 5. Hypertension, continue hydralazine and we will titrate as needed and his lisinopril was discontinued yesterday. 6. Urinary tract infection with 2 gram-negative rods, Klebsiella and Proteus mirabilis and Klebsiella is sensitive to Rocephin, but resistant to Proteus mirabilis. We will request ID consult with Dr. Gutiérrez, and we will adjust antibiotics as per Dr. Gutiérrez. We will continue to monitor renal function. If renal function further deteriorates, the patient may need a renal replacement therapy. I discussed with the patient's at bedside. We will follow with you. Thank you for allowing me to participate in your patient's care. We will increase the Lasix to 40 mg daily. Continue Procrit 3 times a week. Emir Kirk MD
[2017-01-02] MEDS ORDERED: Pneumococcal 23-Valent Vaccine IM ONE (10:00)
--- NOTE | 2017-01-02 12:25 | CP.PCM.PN ---
Subjective - Date & Time of Evaluation Date of Evaluation: 01/02/17 Time of Evaluation: 08:00 - Subjective Subjective: AWAKE ALERT IV INFUSING WELL NAD NOTED AFEBRILE Objective - Vital Signs/Intake and Output Vital Signs (last 24 hours): Temp Pulse Resp BP Pulse Ox 98.2 F 97 H 20 129/66 98 01/02/17 09:13 01/02/17 09:13 01/02/17 09:13 01/02/17 09:33 01/02/17 09:13 Intake and Output: 01/02/17 01/02/17 06:59 18:59 Intake Total 400 Output Total 1500 Balance -1100 - Medications Medications: Current Medications Acetaminophen (Tylenol 325mg Tab) 650 mg PO Q6 PRN PRN Reason: Headache Last Admin: 01/02/17 06:10 Dose: 650 mg Albuterol/Ipratropium (Duoneb 3 Mg/0.5 Mg (3 Ml) Ud) 3 ml INH RQ6 [facility] Last Admin: 01/02/17 08:05 Dose: Not Given Allopurinol (Zyloprim) 100 mg PO DAILY [facility] Last Admin: 01/02/17 09:34 Dose: 100 mg Epoetin Kyle (Procrit) 10,000 unit SC TTS [facility] Last Admin: 12/31/16 11:42 Dose: 10,000 unit Ferrous Sulfate (Feosol) 325 mg PO BID [facility] Last Admin: 01/02/17 09:33 Dose: 325 mg Finasteride (Proscar) 5 mg PO DAILY [facility] Last Admin: 01/02/17 09:32 Dose: 5 mg Furosemide (Lasix) 20 mg PO DAILY [facility] Last Admin: 01/02/17 09:33 Dose: 20 mg Heparin Sodium (Porcine) (Heparin) 5,000 units SC Q12 [facility] Hydralazine HCl (Apresoline) 50 mg PO DAILY [facility] Last Admin: 01/02/17 09:33 Dose: 50 mg Dextrose/Sodium Chloride (Dextrose 5%/0.9% Ns 1000 Ml) 1,000 mls @ 50 mls/hr IV .Q20H ONE Stop: 01/02/17 18:32 Last Admin: 01/01/17 22:44 Dose: 50 mls/hr Meropenem 500 mg/ Sodium (Chloride) 100 mls @ 100 mls/hr IVPB Q12H [facility] Insulin Aspart (Novolog) 0 unit SC [facility] PRN Reason: Protocol Last Admin: 01/02/17 08:20 Dose: Not Given Multivitamins (Hexavitamin) 1 tab PO DAILY [facility] Last Admin: 01/02/17 09:33 Dose: 1 tab Pantoprazole Sodium (Protonix Ec Tab) 40 mg PO BID [facility] Last Admin: 01/02/17 09:32 Dose: 40 mg Promethazine HCl/Dextromethorphan (Phenergan Dm Syrup) 5 ml PO TID [facility] Last Admin: 01/02/17 09:34 Dose: 5 ml Tamsulosin HCl (Flomax) 0.4 mg PO DAILY [facility] Last Admin: 01/02/17 09:32 Dose: 0.4 mg Vitamin B Complex/Vit C/Folic Acid (Nephro-Portia) 1 tab PO DAILY@0800 [facility] Last Admin: 01/02/17 09:32 Dose: 1 tab - Labs Labs: 01/02/17 07:19 01/02/17 07:19 PT 12.4 SECONDS (9.7-12.2) H 12/30/16 11:42 INR 1.1 12/30/16 11:42 APTT 31 SECONDS (21-34) 12/30/16 11:42 - Constitutional Appears: Non-toxic, Chronically Ill - Head Exam Head Exam: NORMOCEPHALIC - Eye Exam Eye Exam: PERRL - ENT Exam ENT Exam: Mucous Membranes Dry - Neck Exam Neck Exam: absent: Lymphadenopathy - Respiratory Exam Respiratory Exam: Decreased Breath Sounds, Clear to Ausculation Bilateral - Cardiovascular Exam Cardiovascular Exam: REGULAR RHYTHM, +S1, +S2 - GI/Abdominal Exam GI & Abdominal Exam: Distended, Soft. absent: Tenderness - Rectal Exam Rectal Exam: Deferred - Exam Exam: NORMAL INSPECTION - Extremities Exam Extremities Exam: absent: Pedal Edema - Back Exam Back Exam: absent: CVA tenderness (L), CVA tenderness (R) - Neurological Exam Neurological Exam: Alert, Awake, Oriented x3 - Psychiatric Exam Psychiatric exam: Depressed - Skin Skin Exam: Dry Assessment and Plan (1) Abnormal chest xray Status: Acute (2) Acute on chronic renal failure Status: Acute (3) UTI (urinary tract infection) Status: Acute (4) Anemia Status: Acute (5) Confusion and disorientation Status: Acute (6) Hyperkalemia Status: Acute (7) Hyponatremia Status: Acute (8) Obstructive uropathy Status: Acute (9) Symptomatic anemia Status: Acute - Assessment and Plan (Free Text) Assessment: CONT MERREM FOR ESBL IN URINE Plan: EVAL NEEDED
--- NOTE | 2017-01-02 15:51 | CARD ---
APPROVED REPORT EKG Measurement Heart [id number] <Conclusion> Sinus tachycardia with premature atrial complexes Otherwise normal ECG
--- NOTE | 2017-01-02 17:07 | CP.PCM.PN ---
Subjective - Date & Time of Evaluation Date of Evaluation: 01/02/17 Time of Evaluation: 17:06 - Subjective Subjective: weak,poor appetite. Objective - Vital Signs/Intake and Output Vital Signs (last 24 hours): Temp Pulse Resp BP Pulse Ox 97.2 F L 125 H 18 161/87 H 98 01/02/17 16:00 01/02/17 16:00 01/02/17 16:00 01/02/17 16:00 01/02/17 16:00 Intake and Output: 01/02/17 01/02/17 06:59 18:59 Intake Total 400 450 Output Total 1500 800 Balance -1100 -350 - Medications Medications: Current Medications Acetaminophen (Tylenol 325mg Tab) 650 mg PO Q6 PRN PRN Reason: Headache Last Admin: 01/02/17 06:10 Dose: 650 mg Albuterol/Ipratropium (Duoneb 3 Mg/0.5 Mg (3 Ml) Ud) 3 ml INH RQ6 [facility] Last Admin: 01/02/17 14:09 Dose: 3 ml Allopurinol (Zyloprim) 100 mg PO DAILY [facility] Last Admin: 01/02/17 09:34 Dose: 100 mg Epoetin Kyle (Procrit) 10,000 unit SC TTS [facility] Last Admin: 12/31/16 11:42 Dose: 10,000 unit Ferrous Sulfate (Feosol) 325 mg PO BID [facility] Last Admin: 01/02/17 09:33 Dose: 325 mg Finasteride (Proscar) 5 mg PO DAILY [facility] Last Admin: 01/02/17 09:32 Dose: 5 mg Furosemide (Lasix) 20 mg PO DAILY [facility] Last Admin: 01/02/17 09:33 Dose: 20 mg Heparin Sodium (Porcine) (Heparin) 5,000 units SC Q12 [facility] Hydralazine HCl (Apresoline) 50 mg PO DAILY [facility] Last Admin: 01/02/17 09:33 Dose: 50 mg Dextrose/Sodium Chloride (Dextrose 5%/0.9% Ns 1000 Ml) 1,000 mls @ 50 mls/hr IV .Q20H ONE Stop: 01/02/17 18:32 Last Admin: 01/01/17 22:44 Dose: 50 mls/hr Meropenem 500 mg/ Sodium (Chloride) 100 mls @ 100 mls/hr IVPB Q12H [facility] Insulin Aspart (Novolog) 0 unit SC ACHS [facility] PRN Reason: Protocol Last Admin: 01/02/17 12:40 Dose: Not Given Multivitamins (Hexavitamin) 1 tab PO DAILY [facility] Last Admin: 01/02/17 09:33 Dose: 1 tab Pantoprazole Sodium (Protonix Ec Tab) 40 mg PO BID [facility] Last Admin: 01/02/17 09:32 Dose: 40 mg Promethazine HCl/Dextromethorphan (Phenergan Dm Syrup) 5 ml PO TID [facility] Last Admin: 01/02/17 14:37 Dose: 5 ml Tamsulosin HCl (Flomax) 0.4 mg PO DAILY [facility] Last Admin: 01/02/17 09:32 Dose: 0.4 mg Vitamin B Complex/Vit C/Folic Acid (Nephro-Portia) 1 tab PO DAILY@0800 [facility] Last Admin: 01/02/17 09:32 Dose: 1 tab - Labs Labs: 01/02/17 07:19 01/02/17 07:19 PT 12.4 SECONDS (9.7-12.2) H 12/30/16 11:42 INR 1.1 12/30/16 11:42 APTT 31 SECONDS (21-34) 12/30/16 11:42 - Constitutional Appears: No Acute Distress, Chronically Ill - Eye Exam Eye Exam: Normal appearance - Neck Exam Neck Exam: Normal Inspection - Respiratory Exam Respiratory Exam: Decreased Breath Sounds - Cardiovascular Exam Cardiovascular Exam: REGULAR RHYTHM, Murmur - GI/Abdominal Exam GI & Abdominal Exam: Soft - Extremities Exam Extremities Exam: Pedal Edema - Neurological Exam Neurological Exam: Alert, Oriented x3 Assessment and Plan - Assessment and Plan (Free Text) Assessment: ckd.not getting any better. needs hd. diss with family
--- NOTE | 2017-01-02 18:58 | CP.PCM.PN ---
Subjective - Date & Time of Evaluation Date of Evaluation: 01/02/17 Time of Evaluation: 18:57 - Subjective Subjective: pt is seen and examined, follow up consult is dictated #[id number] agreed for hd and perma cath Objective - Vital Signs/Intake and Output Vital Signs (last 24 hours): Temp Pulse Resp BP Pulse Ox 97.2 F L 125 H 18 161/87 H 98 01/02/17 16:00 01/02/17 16:00 01/02/17 16:00 01/02/17 16:00 01/02/17 16:00 Intake and Output: 01/02/17 01/02/17 06:59 18:59 Intake Total 400 450 Output Total 1500 800 Balance -1100 -350 - Medications Medications: Current Medications Acetaminophen (Tylenol 325mg Tab) 650 mg PO Q6 PRN PRN Reason: Headache Last Admin: 01/02/17 06:10 Dose: 650 mg Albuterol/Ipratropium (Duoneb 3 Mg/0.5 Mg (3 Ml) Ud) 3 ml INH RQ6 [facility] Last Admin: 01/02/17 14:09 Dose: 3 ml Allopurinol (Zyloprim) 100 mg PO DAILY [facility] Last Admin: 01/02/17 09:34 Dose: 100 mg Epoetin Kyle (Procrit) 10,000 unit SC TTS [facility] Last Admin: 12/31/16 11:42 Dose: 10,000 unit Ferrous Sulfate (Feosol) 325 mg PO BID [facility] Last Admin: 01/02/17 09:33 Dose: 325 mg Finasteride (Proscar) 5 mg PO DAILY [facility] Last Admin: 01/02/17 09:32 Dose: 5 mg Furosemide (Lasix) 20 mg PO DAILY [facility] Last Admin: 01/02/17 09:33 Dose: 20 mg Heparin Sodium (Porcine) (Heparin) 5,000 units SC Q12 [facility] Hydralazine HCl (Apresoline) 50 mg PO DAILY [facility] Last Admin: 01/02/17 09:33 Dose: 50 mg Meropenem 500 mg/ Sodium (Chloride) 100 mls @ 100 mls/hr IVPB Q12H [facility] Insulin Aspart (Novolog) 0 unit SC ACHS [facility] PRN Reason: Protocol Last Admin: 01/02/17 17:11 Dose: Not Given Multivitamins (Hexavitamin) 1 tab PO DAILY [facility] Last Admin: 01/02/17 09:33 Dose: 1 tab Pantoprazole Sodium (Protonix Ec Tab) 40 mg PO BID [facility] Last Admin: 01/02/17 17:48 Dose: 40 mg Promethazine HCl/Dextromethorphan (Phenergan Dm Syrup) 5 ml PO TID [facility] Last Admin: 01/02/17 14:37 Dose: 5 ml Tamsulosin HCl (Flomax) 0.4 mg PO DAILY [facility] Last Admin: 01/02/17 09:32 Dose: 0.4 mg Vitamin B Complex/Vit C/Folic Acid (Nephro-Portia) 1 tab PO DAILY@0800 [facility] Last Admin: 01/02/17 09:32 Dose: 1 tab - Labs Labs: 01/02/17 07:19 01/02/17 07:19 PT 12.4 SECONDS (9.7-12.2) H 12/30/16 11:42 INR 1.1 12/30/16 11:42 APTT 31 SECONDS (21-34) 12/30/16 11:42
[2017-01-02 20:12] LABS: INR 1.1
[2017-01-03] MEDS: Albuterol-Ipratrop 3 mg / 0.5 (3 ml) UD INH SCH ×4 (01:58→19:39)
--- NOTE | 2017-01-03 03:21 | PN ---
FOLLOWUP RENAL CONSULTATION NOTE DATE: LOCATION: The patient is located in room 667, bed B. REQUESTED BY: Rigo Comer MD. REASON FOR FOLLOWUP: Renal failure with worsening renal function and urinary tract infection. HISTORY OF PRESENT ILLNESS: Mr. Cho is a 76 years old elderly obese [place] male with a history of hypertension and also anemia, chronic kidney disease, BPH, depression, who was admitted to [facility] multiple times with hyponatremia, shortness of breath, and also anemia. The patient is in the residential on and off for the last three months and now, the patient was admitted from the residential with worsening renal function and the patient was found to have a UTI with both Klebsiella pneumoniae and proteus mirabilis. The patient was started on Merrem by Infectious Disease specialist Dr. Gutiérrez. The patient is not in acute distress. This morning patient was complaining of shortness of breath and tachycardia last night and the patient also complains of tremors. Denies any chest pain or palpitations. Denies any nausea or vomiting and no diarrhea. The patient does complain of poor appetite and also swelling of the legs. PHYSICAL EXAMINATION VITAL SIGNS: As follows: Blood pressure of 161/87, pulse is 124, respirations are 18, temperature is 97.2, and oxygen saturation is 98%. Height is 5 feet 7 inches and weight is 190 pounds. GENERAL: Mr. Cho is a 76 years old elderly obese male moderately built, moderately nourished, not in distress. HEENT: Pupils are normal and reactive to light and accommodation. Conjunctivae are pink. Sclerae are anicteric. Tongue is moist. Trachea is midline. LUNGS: Symmetric on both sides. Bilateral breath sounds present. Bilateral basal crackles present. CARDIOVASCULAR SYSTEM: [place] at the fifth intercostal space, midclavicular line. S1 and S2 audible. No murmur and no gallop. ABDOMEN: Normal in appearance. Soft and tympanic. No guarding. No rigidity. No hepatosplenomegaly. Protuberant. The patient has a mild tenderness in the epigastric region. CENTRAL NERVOUS SYSTEM: The patient is alert, awake, and oriented x2-3. Sensory and motor system is grossly within normal limits. EXTREMITIES: No cyanosis and no clubbing. The patient has 1+ edema in both lower extremities. MEDICATIONS: His current medications include and as follows: Hydralazine 50 mg p.o. daily, DuoNeb inhaler, and Feosol 325 mg p.o. b.i.d, and Flomax 0.4 mg daily, subcutaneous heparin 5000 q. 12 hours, multivitamins one tablet daily and Lasix 20 mg p.o. daily, meropenem 500 mg q. 12 hours and Nephro-Portia one tablet daily, Novolog for sliding scale and Phenergan DM syrup 5 mL t.i.d, Epogen 10,000 units three times a week Monday, , and Monday, and Proscar 5 mg daily, Protonix 40 mg p.o. b.i.d., Tylenol 650 p.o. q. 6 hours and allopurinol 100 mg p.o. daily. LABORATORY DATA: Includes as follows as of on 01/02/2017; WBC of 5.7, hemoglobin of 8, hematocrit of 24.2, and platelets of 371. Sodium is 132, potassium is 4.1, chloride is 100, CO2 is 20, BUN is 51, and creatinine is 5.5. Glucose is 84, calcium is 8, phosphorous is 4.8 and CPK of 50. Procalcitonin of 0.51 and Accu-Check of 101, 124 and 121. Urine cultures from 12/30/2016 positive for Gram-negative rods and identified as Klebsiella pneumoniae and Proteus mirabilis and blood cultures x1 was negative from 01/01/2017. ASSESSMENT AND PLAN: In summary, Mr. Cho is a 76 years old elderly obese male with history of hypertension, anemia, benign prostatic hyperplasia, and renal failure being treated for urinary tract infection with increased BUN and creatinine and bilateral crackles. 1. Renal failure, [id number] kidney disease versus progression of the chronic kidney disease, stage IV, end-stage renal disease. 2. Anemia secondary to renal failure. 3. Congestive heart failure. 4. Hypertension. 5. Urinary tract infection. Continue intravenous antibiotics as per Infectious Diseases specialist Dr. Gutiérrez and meropenem 100 q. 12 hours. PLAN: Discussed with the patient and patient's and patient's son on the phone. All three agreed for initiation of the hemodialysis and we will request Vascular Surgery consult for AV graft, AV fistula placement and also intervention radiology evaluation for Perma-Cath placement. We will schedule for hemodialysis after Perma-Cath placement and also we will check hepatitis B and C serology. We will follow with you. Thank you for allowing me to participate in your patient's care. Emir Kirk MD
[2017-01-03] MEDS: (Novolog) Insulin Aspart, Recombinant 100 u/ml 10 ml vial SC SCH ×4 (08:30→21:07)
[2017-01-03] MEDS: Multivitamin Vitamin B Complex (Nephro-Vite) Tab PO SCH (09:00)
[2017-01-03] MEDS: Meropenem 500 MG in Sodium Chloride 0.9% 100 ML IVPB SCH ×2 (09:44→21:06)
[2017-01-03] MEDS: Multiple Vitamins Tab PO SCH (09:47)
[2017-01-03] MEDS: Pantoprazole 40 mg EC Tab PO SCH ×2 (09:47→18:43)
[2017-01-03] MEDS: Promethazine DM 6.25 mg-15 mg/5 ml Syrup PO SCH ×3 (09:48→18:43)
--- NOTE | 2017-01-03 11:09 | CP.PCM.PN ---
Subjective - Date & Time of Evaluation Date of Evaluation: 01/03/17 Time of Evaluation: 11:08 - Subjective Subjective: weak.sob on minimal exertion. Objective - Vital Signs/Intake and Output Vital Signs (last 24 hours): Temp Pulse Resp BP Pulse Ox 98 F 118 H 20 163/85 H 99 01/03/17 09:42 01/03/17 09:42 01/03/17 09:42 01/03/17 09:48 01/03/17 08:20 Intake and Output: 01/03/17 01/03/17 06:59 18:59 Intake Total 500 Output Total 1700 Balance -1200 - Medications Medications: Current Medications Acetaminophen (Tylenol 325mg Tab) 650 mg PO Q6 PRN PRN Reason: Headache Last Admin: 01/03/17 02:24 Dose: 650 mg Albuterol/Ipratropium (Duoneb 3 Mg/0.5 Mg (3 Ml) Ud) 3 ml INH RQ6 [facility] Last Admin: 01/03/17 07:16 Dose: Not Given Allopurinol (Zyloprim) 100 mg PO DAILY [facility] Last Admin: 01/03/17 09:48 Dose: 100 mg Epoetin Kyle (Procrit) 10,000 unit SC TTS [facility] Last Admin: 12/31/16 11:42 Dose: 10,000 unit Ferrous Sulfate (Feosol) 325 mg PO BID [facility] Last Admin: 01/03/17 09:48 Dose: 325 mg Finasteride (Proscar) 5 mg PO DAILY [facility] Last Admin: 01/03/17 09:47 Dose: 5 mg Furosemide (Lasix) 20 mg PO DAILY [facility] Last Admin: 01/03/17 09:48 Dose: 20 mg Heparin Sodium (Porcine) (Heparin) 5,000 units SC Q12 [facility] Hydralazine HCl (Apresoline) 50 mg PO DAILY [facility] Last Admin: 01/03/17 09:48 Dose: 50 mg Meropenem 500 mg/ Sodium (Chloride) 100 mls @ 100 mls/hr IVPB Q12H [facility] Last Admin: 01/03/17 09:44 Dose: 100 mls/hr Insulin Aspart (Novolog) 0 unit SC ACHS [facility] PRN Reason: Protocol Last Admin: 01/03/17 08:30 Dose: Not Given Multivitamins (Hexavitamin) 1 tab PO DAILY [facility] Last Admin: 01/03/17 09:47 Dose: 1 tab Pantoprazole Sodium (Protonix Ec Tab) 40 mg PO BID [facility] Last Admin: 01/03/17 09:47 Dose: 40 mg Promethazine HCl/Dextromethorphan (Phenergan Dm Syrup) 5 ml PO TID [facility] Last Admin: 01/03/17 09:48 Dose: Not Given Tamsulosin HCl (Flomax) 0.4 mg PO DAILY [facility] Last Admin: 01/03/17 09:47 Dose: 0.4 mg Vitamin B Complex/Vit C/Folic Acid (Nephro-Portia) 1 tab PO DAILY@0800 [facility] Last Admin: 01/03/17 09:00 Dose: 1 tab - Labs Labs: 01/02/17 07:19 01/02/17 07:19 PT 12.5 SECONDS (9.7-12.2) H 01/02/17 19:56 INR 1.1 01/02/17 19:56 APTT 31 SECONDS (21-34) 01/02/17 19:56 - Constitutional Appears: Chronically Ill - Eye Exam Eye Exam: Normal appearance - Neck Exam Neck Exam: Normal Inspection - Respiratory Exam Respiratory Exam: Decreased Breath Sounds - Cardiovascular Exam Cardiovascular Exam: REGULAR RHYTHM - GI/Abdominal Exam GI & Abdominal Exam: Soft - Extremities Exam Extremities Exam: Pedal Edema - Neurological Exam Neurological Exam: Alert Assessment and Plan - Assessment and Plan (Free Text) Assessment: hb still 8.0. sob on minimal exertion. needs hd & re check echo.
--- NOTE | 2017-01-03 11:58 | CP.PCM.PN ---
Subjective - Date & Time of Evaluation Date of Evaluation: 01/03/17 Time of Evaluation: 11:57 - Subjective Subjective: pt is seen and examined, follow up consult is dictated #[id number] for hd after perma cath, keep on ekg monitor today Objective - Vital Signs/Intake and Output Vital Signs (last 24 hours): Temp Pulse Resp BP Pulse Ox 98 F 118 H 20 163/85 H 99 01/03/17 09:42 01/03/17 09:42 01/03/17 09:42 01/03/17 09:48 01/03/17 08:20 Intake and Output: 01/03/17 01/03/17 06:59 18:59 Intake Total 500 Output Total 1700 Balance -1200 - Medications Medications: Current Medications Acetaminophen (Tylenol 325mg Tab) 650 mg PO Q6 PRN PRN Reason: Headache Last Admin: 01/03/17 02:24 Dose: 650 mg Albuterol/Ipratropium (Duoneb 3 Mg/0.5 Mg (3 Ml) Ud) 3 ml INH RQ6 [facility] Last Admin: 01/03/17 07:16 Dose: Not Given Allopurinol (Zyloprim) 100 mg PO DAILY [facility] Last Admin: 01/03/17 09:48 Dose: 100 mg Epoetin Kyle (Procrit) 10,000 unit SC TTS [facility] Last Admin: 12/31/16 11:42 Dose: 10,000 unit Ferrous Sulfate (Feosol) 325 mg PO BID [facility] Last Admin: 01/03/17 09:48 Dose: 325 mg Finasteride (Proscar) 5 mg PO DAILY [facility] Last Admin: 01/03/17 09:47 Dose: 5 mg Furosemide (Lasix) 20 mg PO DAILY [facility] Last Admin: 01/03/17 09:48 Dose: 20 mg Heparin Sodium (Porcine) (Heparin) 5,000 units SC Q12 [facility] Hydralazine HCl (Apresoline) 50 mg PO DAILY [facility] Last Admin: 01/03/17 09:48 Dose: 50 mg Meropenem 500 mg/ Sodium (Chloride) 100 mls @ 100 mls/hr IVPB Q12H [facility] Last Admin: 01/03/17 09:44 Dose: 100 mls/hr Insulin Aspart (Novolog) 0 unit SC ACHS [facility] PRN Reason: Protocol Last Admin: 01/03/17 08:30 Dose: Not Given Multivitamins (Hexavitamin) 1 tab PO DAILY [facility] Last Admin: 01/03/17 09:47 Dose: 1 tab Pantoprazole Sodium (Protonix Ec Tab) 40 mg PO BID [facility] Last Admin: 01/03/17 09:47 Dose: 40 mg Promethazine HCl/Dextromethorphan (Phenergan Dm Syrup) 5 ml PO TID [facility] Last Admin: 01/03/17 09:48 Dose: Not Given Tamsulosin HCl (Flomax) 0.4 mg PO DAILY [facility] Last Admin: 01/03/17 09:47 Dose: 0.4 mg Vitamin B Complex/Vit C/Folic Acid (Nephro-Portia) 1 tab PO DAILY@0800 [facility] Last Admin: 01/03/17 09:00 Dose: 1 tab - Labs Labs: 01/02/17 07:19 01/02/17 07:19 PT 12.5 SECONDS (9.7-12.2) H 01/02/17 19:56 INR 1.1 01/02/17 19:56 APTT 31 SECONDS (21-34) 01/02/17 19:56
--- NOTE | 2017-01-03 12:12 | CP.PCM.PN ---
Subjective - Date & Time of Evaluation Date of Evaluation: 01/03/17 Time of Evaluation: 08:00 - Subjective Subjective: slow progress iv rx renewed after examining pt and reviewing chart Objective - Vital Signs/Intake and Output Vital Signs (last 24 hours): Temp Pulse Resp BP Pulse Ox 98 F 118 H 20 163/85 H 99 01/03/17 09:42 01/03/17 09:42 01/03/17 09:42 01/03/17 09:48 01/03/17 08:20 Intake and Output: 01/03/17 01/03/17 06:59 18:59 Intake Total 500 Output Total 1700 Balance -1200 - Medications Medications: Current Medications Acetaminophen (Tylenol 325mg Tab) 650 mg PO Q6 PRN PRN Reason: Headache Last Admin: 01/03/17 02:24 Dose: 650 mg Albuterol/Ipratropium (Duoneb 3 Mg/0.5 Mg (3 Ml) Ud) 3 ml INH RQ6 [facility] Last Admin: 01/03/17 07:16 Dose: Not Given Allopurinol (Zyloprim) 100 mg PO DAILY [facility] Last Admin: 01/03/17 09:48 Dose: 100 mg Epoetin Kyle (Procrit) 10,000 unit SC TTS [facility] Last Admin: 12/31/16 11:42 Dose: 10,000 unit Ferrous Sulfate (Feosol) 325 mg PO BID [facility] Last Admin: 01/03/17 09:48 Dose: 325 mg Finasteride (Proscar) 5 mg PO DAILY [facility] Last Admin: 01/03/17 09:47 Dose: 5 mg Furosemide (Lasix) 20 mg PO DAILY [facility] Last Admin: 01/03/17 09:48 Dose: 20 mg Heparin Sodium (Porcine) (Heparin) 5,000 units SC Q12 [facility] Hydralazine HCl (Apresoline) 50 mg PO DAILY [facility] Last Admin: 01/03/17 09:48 Dose: 50 mg Meropenem 500 mg/ Sodium (Chloride) 100 mls @ 100 mls/hr IVPB Q12H [facility] Last Admin: 01/03/17 09:44 Dose: 100 mls/hr Insulin Aspart (Novolog) 0 unit SC ACHS [facility] PRN Reason: Protocol Last Admin: 01/03/17 08:30 Dose: Not Given Multivitamins (Hexavitamin) 1 tab PO DAILY [facility] Last Admin: 01/03/17 09:47 Dose: 1 tab Pantoprazole Sodium (Protonix Ec Tab) 40 mg PO BID [facility] Last Admin: 01/03/17 09:47 Dose: 40 mg Promethazine HCl/Dextromethorphan (Phenergan Dm Syrup) 5 ml PO TID [facility] Last Admin: 01/03/17 09:48 Dose: Not Given Tamsulosin HCl (Flomax) 0.4 mg PO DAILY [facility] Last Admin: 01/03/17 09:47 Dose: 0.4 mg Vitamin B Complex/Vit C/Folic Acid (Nephro-Portia) 1 tab PO DAILY@0800 [facility] Last Admin: 01/03/17 09:00 Dose: 1 tab - Labs Labs: 01/02/17 07:19 01/02/17 07:19 PT 12.5 SECONDS (9.7-12.2) H 01/02/17 19:56 INR 1.1 01/02/17 19:56 APTT 31 SECONDS (21-34) 01/02/17 19:56 Assessment and Plan (1) Abnormal chest xray Status: Acute (2) Acute on chronic renal failure Status: Acute (3) UTI (urinary tract infection) Status: Acute (4) Anemia Status: Acute (5) Confusion and disorientation Status: Acute (6) Hyperkalemia Status: Acute (7) Hyponatremia Status: Acute (8) Obstructive uropathy Status: Acute (9) Symptomatic anemia Status: Acute
--- NOTE | 2017-01-03 18:42 | CARD ---
APPROVED REPORT EXAM: Two-dimensional and M-mode echocardiogram with Doppler and color Doppler. Other Information Quality : GoodRhythm : TachycardiaAtrial Fibrillation INDICATION Systolic Congestive Heart Failure 2D DIMENSIONS IVSd1.5 (0.7-1.1cm)LVDd4.1 (3.9-5.9cm) PWd1.4 (0.7-1.1cm)LVDs2.8 (2.5-4.0cm) FS (%) 31.5 %LVEF (%)59.8 (>50%) M-Mode DIMENSIONS Left Atrium (MM)4.53 (2.5-4.0cm)Aortic Root3.82 (2.2-3.7cm) Aortic Cusp Exc.1.54 (1.5-2.0cm) Mitral Valve E/A ratio0.0 TDI E/Lateral E'0.0E/Medial E'0.0 Tricuspid Valve TR Peak [id number]/sTR Peak Gr.[id number] LEFT VENTRICLE The left ventricle is normal size. There is mild concentric left ventricular hypertrophy. The left ventricular function is normal. The left ventricular ejection fraction is within the normal range. About 65%. No regional wall motion abnormalities noted. Transmitral Doppler flow pattern is Grade I-abnormal relaxation pattern. No left ventricle thrombus noted on this study. There is no ventricular septal defect visualized. There is no left ventricular aneurysm. There is no mass noted in the left ventricle. RIGHT VENTRICLE The right ventricle is normal size. There is normal right ventricular wall thickness. The right ventricular systolic function is normal. ATRIA The left atrium size is normal. The right atrium size is normal. The interatrial septum is intact with no evidence for an atrial septal defect. AORTIC VALVE The aortic valve is normal in structure and function. No aortic regurgitation is present. There is no aortic valvular stenosis. There is no aortic valvular vegetation. MITRAL VALVE The mitral valve is normal in structure and function. There is no evidence of mitral valve prolapse. There is no mitral valve stenosis. There is no mitral valve regurgitation noted. TRICUSPID VALVE The tricuspid valve is normal in structure and function. There is mild tricuspid valve regurgitation noted. There is no tricuspid valve prolapse or vegetation. There is no tricuspid valve stenosis. PULMONIC VALVE The pulmonary valve is normal in structure and function. There is no pulmonic valvular regurgitation. There is no pulmonic valvular stenosis. GREAT VESSELS The aortic root is normal in size. The ascending aorta is normal in size. The pulmonary artery is normal. The IVC is normal in size and collapses >50% with inspiration. PERICARDIAL EFFUSION The pericardium appears normal. There is no pleural effusion. <Conclusion> Normal LV systolic function. Transmitral Doppler flow pattern is Grade I-abnormal relaxation pattern. Milld concentric LVH
--- NOTE | 2017-01-03 22:48 | CARD ---
APPROVED REPORT EKG Measurement Heart [id number] [place] 136P [id number] <Conclusion> Sinus tachycardia Left axis deviation ST & T wave abnormality, consider lateral ischemia Abnormal ECG
--- NOTE | 2017-01-04 01:42 | PN ---
FOLLOWUP RENAL CONSULTATION DATE: LOCATION: The patient is located in room 667, bed B. REQUESTED BY: Rigo Comer MD. REASON FOR FOLLOWUP: For initiation of the hemodialysis. HISTORY OF PRESENT ILLNESS: Mr. Cho is a 76 years old elderly, obese male with a past medical history significant for hypertension, BPH, anemia, CHF, and CKD IV was admitted with worsened renal function. The patient was also found to have UTI, being treated for UTI with Merrem. The patient is positive for Klebsiella pneumoniae and Proteus mirabilis in the urine. The patient is complaining of dyspnea on exertion, short of breath, and tremors. Denies any chest pain. The patient does complain of palpitations and also swelling of the legs. No nausea or vomiting. Appetite is poor. PHYSICAL EXAMINATION: GENERAL: Mr. Cho is a 76 years old elderly obese male, moderately built, moderately nourished, not in distress. VITAL SIGNS: As follows: Blood pressure 132/67, pulse 109, respirations 18, temperature 97.7, and saturation 94%. Height 5 feet 7 inches and weight is 190 pounds. HEENT: Pupils are normal and reactive to light and accommodation. Conjunctivae are pale. Sclerae are anicteric. Tongue is moist. Trachea is midline. LUNGS: Symmetric on both sides. Bilateral breath sounds present. Bilateral basal crackles present. CARDIOVASCULAR: [place] at the fifth intercostal space, midclavicular line. S1 and S2 audible. No murmur or gallop. ABDOMEN: Protuberant, soft, tympanic. No guarding. No rigidity. No hepatosplenomegaly. CENTRAL NERVOUS SYSTEM: The patient is alert, awake, and oriented x3. Nonfocal on examination. Cranial nerves II through XII grossly intact. Sensory and motor system is within normal limits. EXTREMITIES: No cyanosis, no clubbing. The patient has 1+ edema in both lower extremities. CURRENT MEDICATIONS: Include as follows: Hydralazine 50 mg p.o. daily, DuoNeb inhaler 3 mL q. 6 hours, Feosol 325 mg p.o. b.i.d, Flomax 0.4 mg p.o. daily, subcutaneous heparin 5000 q. 12 hours, multivitamin one tablet daily, Lasix 20 mg p.o. daily, Merrem 500 mg q. 12 hours, Nephro-Portia one tablet daily, Novolog for sliding scale, Phenergan DM syrup 5 mL p.o. t.i.d., Procrit 10,000 units 3 times every Monday, , and Monday, Proscar 5 mg daily, Protonix 40 mg p.o. b.i.d., Tylenol, and allopurinol. LABORATORY DATA: His laboratory data on 01/03/2017, hepatitis B surface antigen negative and surface antibody is negative, hepatitis B core antibody is negative, and hepatitis C antibody is negative. Serum ferritin level is 1070, and Accu-Check are 111 and 130. Urine culture as of 12/30/2016, positive for Gram negative rods and blood culture x2 negative on day #2. ASSESSMENT AND PLAN: In summary, Mr. Cho is a 76 years old elderly obese male with a history of hypertension, anemia, chronic kidney disease stage IV with worsened renal function, urinary tract infection, was admitted with worsening renal function, shortness of breath, palpitations, dyspnea on exertion, tremors, and poor appetite. 1. End-stage renal disease, most likely secondary to hypertensive nephrosclerosis, cannot rule out secondary to nonsteroid abuse. 2. Anemia secondary to renal failure. Continue Epogen three times a week. 3. Urinary tract infection. Continue Merrem 500 mg q. 12 hours as per Infectious Disease recommendation. 4. Hypertension. Blood pressure is stable. 5. Congestive heart failure secondary to fluid overload, secondary to renal failure. The patient agreed for the hemodialysis and signed consent for the initiation of the hemodialysis and awaiting for the Perma-Cath placement. We will dialyze after Perma-Cath placement. We will follow with you. Thank you for allowing me to participate in your patient's care. Emir Kirk MD
[2017-01-04] MEDS: Albuterol-Ipratrop 3 mg / 0.5 (3 ml) UD INH SCH ×3 (01:52→13:36)
[2017-01-04] MEDS: (Novolog) Insulin Aspart, Recombinant 100 u/ml 10 ml vial SC SCH ×3 (07:35→17:59)
[2017-01-04] MEDS ORDERED: Midazolam 2 MG/2 ML VIAL ONE (08:18)
[2017-01-04] MEDS ORDERED: Lidocaine 2% Inj (20ml) ONE (08:36)
--- NOTE | 2017-01-04 09:37 | PCM.SURG1 ---
Surgeon's Initial Post Op Note - Surgeon's Notes Surgeon: Rupali General Manager In Training: TYRA castro Type of Anesthesia: IV Sedation, Local Pre-Operative Diagnosis: RF Operative Findings: Patent right IJV Post-Operative Diagnosis: RF Operation Performed: Right permacath placement Specimen/Specimens Removed: None Estimated Blood Loss: EBL {In ML}: 1 Date of Surgery/Procedure: 01/04/17 Time of Surgery/Procedure: 08:45
[2017-01-04] MEDS: Meropenem 500 MG in Sodium Chloride 0.9% 100 ML IVPB SCH ×2 (10:00→20:29)
[2017-01-04] MEDS: Multiple Vitamins Tab PO SCH (10:34)
[2017-01-04] MEDS: Multivitamin Vitamin B Complex (Nephro-Vite) Tab PO SCH (10:34)
[2017-01-04] MEDS: Pantoprazole 40 mg EC Tab PO SCH ×2 (10:35→17:59)
[2017-01-04] MEDS: Promethazine DM 6.25 mg-15 mg/5 ml Syrup PO SCH ×3 (10:35→17:59)
[2017-01-04 11:56] LABS: BASO # 0.1 K/uL (0.0-0.2); BASO % 1.2 % (0.0-2.0); EOS # 0.4 K/uL (0.0-0.7); EOS % 6.5 % (0.0-4.0); HEMATOCRIT 27.2 % (35.0-51.0); LYMPH # 0.8 K/uL (1.0-4.3); LYMPH % 13.7 % (20.0-40.0); MEAN CORPUSCULAR HEMOGLOBIN 28.3 pg (27.0-31.0); MEAN CORPUSCULAR HGB CONC 32.2 g/dL (33.0-37.0); MEAN PLATELET VOLUME 7.4 fL (7.2-11.7); MONO # 0.5 K/uL (0.0-0.8); MONO % 7.7 % (0.0-10.0); NRBC % 0.1 % (0.0-2.0); RED CELL DISTRIBUTION WIDTH 18.6 % (11.5-14.5)
[2017-01-04 12:09] LABS: POTASSIUM 4.2 mmol/L (3.6-5.2)
[2017-01-04 12:13] LABS: CALCIUM 8.4 mg/dl (8.6-10.4)
[2017-01-04] MEDS ORDERED: Epoetin Alfa 10,000 unit/ml Dialysis IV ONE (13:14)
--- NOTE | 2017-01-04 13:51 | CP.PCM.PN ---
Subjective - Date & Time of Evaluation Date of Evaluation: 01/04/17 Time of Evaluation: 13:50 - Subjective Subjective: on dyalysis.sob + Objective - Vital Signs/Intake and Output Vital Signs (last 24 hours): Temp Pulse Resp BP Pulse Ox 97.5 F L 103 H 18 143/89 99 01/04/17 11:40 01/04/17 13:30 01/04/17 13:30 01/04/17 13:30 01/04/17 13:30 Intake and Output: 01/04/17 01/04/17 06:59 18:59 Intake Total 100 Output Total 1050 Balance -950 - Medications Medications: Current Medications Acetaminophen (Tylenol 325mg Tab) 650 mg PO Q6 PRN PRN Reason: Headache Last Admin: 01/04/17 10:40 Dose: 650 mg Albuterol/Ipratropium (Duoneb 3 Mg/0.5 Mg (3 Ml) Ud) 3 ml INH RQ6 [facility] Last Admin: 01/04/17 13:36 Dose: Not Given Allopurinol (Zyloprim) 100 mg PO DAILY [facility] Last Admin: 01/04/17 10:35 Dose: Not Given Epoetin Kyle (Procrit) 10,000 unit SC TTS [facility] Last Admin: 01/03/17 14:02 Dose: 10,000 unit Ferrous Sulfate (Feosol) 325 mg PO BID [facility] Last Admin: 01/04/17 10:34 Dose: 325 mg Finasteride (Proscar) 5 mg PO DAILY [facility] Last Admin: 01/04/17 10:35 Dose: 5 mg Furosemide (Lasix) 20 mg PO DAILY [facility] Last Admin: 01/04/17 10:35 Dose: 20 mg Heparin Sodium (Porcine) (Heparin) 5,000 units SC Q12 [facility] Hydralazine HCl (Apresoline) 50 mg PO DAILY [facility] Last Admin: 01/04/17 10:35 Dose: Not Given Meropenem 500 mg/ Sodium (Chloride) 100 mls @ 100 mls/hr IVPB Q12H [facility] Last Admin: 01/04/17 10:00 Dose: 100 mls/hr Insulin Aspart (Novolog) 0 unit SC ACHS [facility] PRN Reason: Protocol Last Admin: 01/04/17 07:35 Dose: Not Given Multivitamins (Hexavitamin) 1 tab PO DAILY [facility] Last Admin: 01/04/17 10:34 Dose: 1 tab Pantoprazole Sodium (Protonix Ec Tab) 40 mg PO BID [facility] Last Admin: 01/04/17 10:35 Dose: 40 mg Promethazine HCl/Dextromethorphan (Phenergan Dm Syrup) 5 ml PO TID [facility] Last Admin: 01/04/17 10:35 Dose: Not Given Tamsulosin HCl (Flomax) 0.4 mg PO DAILY [facility] Last Admin: 01/04/17 10:34 Dose: 0.4 mg Vitamin B Complex/Vit C/Folic Acid (Nephro-Portia) 1 tab PO DAILY@0800 [facility] Last Admin: 01/04/17 10:34 Dose: 1 tab - Labs Labs: 01/04/17 11:47 01/04/17 11:47 PT 12.5 SECONDS (9.7-12.2) H 01/02/17 19:56 INR 1.1 01/02/17 19:56 APTT 31 SECONDS (21-34) 01/02/17 19:56 - Constitutional Appears: Chronically Ill - Eye Exam Eye Exam: Normal appearance - ENT Exam ENT Exam: Normal Exam - Respiratory Exam Respiratory Exam: Decreased Breath Sounds - Cardiovascular Exam Cardiovascular Exam: Tachycardia - GI/Abdominal Exam GI & Abdominal Exam: Soft - Extremities Exam Extremities Exam: absent: Pedal Edema - Neurological Exam Neurological Exam: Alert, Oriented x3 Assessment and Plan - Assessment and Plan (Free Text) Assessment: ckd.cbc noted.\ will review echo. diss with family.
[2017-01-04] MEDS: Epoetin Alfa 10,000 unit/ml Dialysis SC SCH (14:02)
--- NOTE | 2017-01-04 17:16 | CP.PCM.PN ---
Subjective - Date & Time of Evaluation Date of Evaluation: 01/04/17 Time of Evaluation: 08:00 - Subjective Subjective: tolerated HD iv rx renewed Objective - Vital Signs/Intake and Output Vital Signs (last 24 hours): Temp Pulse Resp BP Pulse Ox 97.5 F L 105 H 16 156/95 H 99 01/04/17 11:40 01/04/17 16:55 01/04/17 14:40 01/04/17 14:40 01/04/17 14:40 Intake and Output: 01/04/17 01/04/17 06:59 18:59 Intake Total 100 400 Output Total 1050 550 Balance -950 -150 - Medications Medications: Current Medications Acetaminophen (Tylenol 325mg Tab) 650 mg PO Q6 PRN PRN Reason: Headache Last Admin: 01/04/17 10:40 Dose: 650 mg Albuterol/Ipratropium (Duoneb 3 Mg/0.5 Mg (3 Ml) Ud) 3 ml INH RQ6 [facility] Last Admin: 01/04/17 13:36 Dose: Not Given Allopurinol (Zyloprim) 100 mg PO DAILY [facility] Last Admin: 01/04/17 10:35 Dose: Not Given Epoetin Kyle (Procrit) 10,000 unit SC TTS [facility] Last Admin: 01/04/17 14:02 Dose: 10,000 unit Ferrous Sulfate (Feosol) 325 mg PO BID [facility] Last Admin: 01/04/17 10:34 Dose: 325 mg Finasteride (Proscar) 5 mg PO DAILY [facility] Last Admin: 01/04/17 10:35 Dose: 5 mg Furosemide (Lasix) 20 mg PO DAILY [facility] Last Admin: 01/04/17 10:35 Dose: 20 mg Heparin Sodium (Porcine) (Heparin) 5,000 units SC Q12 [facility] Hydralazine HCl (Apresoline) 50 mg PO DAILY [facility] Last Admin: 01/04/17 10:35 Dose: Not Given Meropenem 500 mg/ Sodium (Chloride) 100 mls @ 100 mls/hr IVPB Q12H [facility] Last Admin: 01/04/17 10:00 Dose: 100 mls/hr Insulin Aspart (Novolog) 0 unit SC ACHS [facility] PRN Reason: Protocol Last Admin: 01/04/17 14:21 Dose: Not Given Multivitamins (Hexavitamin) 1 tab PO DAILY [facility] Last Admin: 01/04/17 10:34 Dose: 1 tab Pantoprazole Sodium (Protonix Ec Tab) 40 mg PO BID [facility] Last Admin: 01/04/17 10:35 Dose: 40 mg Promethazine HCl/Dextromethorphan (Phenergan Dm Syrup) 5 ml PO TID [facility] Last Admin: 01/04/17 14:21 Dose: Not Given Tamsulosin HCl (Flomax) 0.4 mg PO DAILY [facility] Last Admin: 01/04/17 10:34 Dose: 0.4 mg Vitamin B Complex/Vit C/Folic Acid (Nephro-Portia) 1 tab PO DAILY@0800 [facility] Last Admin: 01/04/17 10:34 Dose: 1 tab - Labs Labs: 01/04/17 11:47 01/04/17 11:47 PT 12.5 SECONDS (9.7-12.2) H 01/02/17 19:56 INR 1.1 01/02/17 19:56 APTT 31 SECONDS (21-34) 01/02/17 19:56 - Constitutional Appears: Non-toxic, Chronically Ill - Head Exam Head Exam: NORMOCEPHALIC - Eye Exam Eye Exam: PERRL. absent: Scleral icterus - ENT Exam ENT Exam: Mucous Membranes Dry, Normal External Ear Exam - Neck Exam Neck Exam: absent: Lymphadenopathy - Respiratory Exam Respiratory Exam: Decreased Breath Sounds - Cardiovascular Exam Cardiovascular Exam: REGULAR RHYTHM - GI/Abdominal Exam GI & Abdominal Exam: Distended, Soft Assessment and Plan (1) Abnormal chest xray Status: Acute (2) Acute on chronic renal failure Status: Acute (3) UTI (urinary tract infection) Status: Acute (4) Anemia Status: Acute (5) Confusion and disorientation Status: Acute (6) Hyperkalemia Status: Acute (7) Hyponatremia Status: Acute (8) Obstructive uropathy Status: Acute (9) Symptomatic anemia Status: Acute
--- NOTE | 2017-01-04 23:14 | CP.PCM.PN ---
Subjective - Date & Time of Evaluation Date of Evaluation: 01/04/17 Time of Evaluation: 10:05 - Subjective Subjective: pt is seen and examined, follow up consult is dictated #[id number] stable [address] hd tx Objective - Vital Signs/Intake and Output Vital Signs (last 24 hours): Temp Pulse Resp BP Pulse Ox 98.1 F 105 H 20 171/91 H 98 01/04/17 15:50 01/04/17 16:55 01/04/17 15:50 01/04/17 15:50 01/04/17 15:50 Intake and Output: 01/04/17 01/05/17 18:59 06:59 Intake Total 400 100 Output Total 550 450 Balance -150 -350 - Medications Medications: Current Medications Acetaminophen (Tylenol 325mg Tab) 650 mg PO Q6 PRN PRN Reason: Headache Last Admin: 01/04/17 20:38 Dose: 650 mg Allopurinol (Zyloprim) 100 mg PO DAILY [facility] Last Admin: 01/04/17 10:35 Dose: Not Given Epoetin Kyle (Procrit) 10,000 unit SC TTS [facility] Last Admin: 01/04/17 14:02 Dose: 10,000 unit Ferrous Sulfate (Feosol) 325 mg PO BID [facility] Last Admin: 01/04/17 17:59 Dose: 325 mg Finasteride (Proscar) 5 mg PO DAILY [facility] Last Admin: 01/04/17 10:35 Dose: 5 mg Furosemide (Lasix) 20 mg PO DAILY [facility] Last Admin: 01/04/17 10:35 Dose: 20 mg Heparin Sodium (Porcine) (Heparin) 5,000 units SC Q12 [facility] Hydralazine HCl (Apresoline) 50 mg PO DAILY [facility] Last Admin: 01/04/17 10:35 Dose: Not Given Meropenem 500 mg/ Sodium (Chloride) 100 mls @ 100 mls/hr IVPB Q12H [facility] Last Admin: 01/04/17 20:29 Dose: 100 mls/hr Insulin Aspart (Novolog) 0 unit SC ACHS [facility] PRN Reason: Protocol Last Admin: 01/04/17 17:59 Dose: Not Given Pantoprazole Sodium (Protonix Ec Tab) 40 mg PO BID [facility] Last Admin: 01/04/17 17:59 Dose: 40 mg Promethazine HCl/Dextromethorphan (Phenergan Dm Syrup) 5 ml PO TID [facility] Last Admin: 01/04/17 17:59 Dose: 5 ml Tamsulosin HCl (Flomax) 0.4 mg PO DAILY [facility] Last Admin: 01/04/17 10:34 Dose: 0.4 mg Vitamin B Complex/Vit C/Folic Acid (Nephro-Portia) 1 tab PO DAILY@0800 [facility] Last Admin: 01/04/17 10:34 Dose: 1 tab - Labs Labs: 01/04/17 11:47 01/04/17 11:47 PT 12.5 SECONDS (9.7-12.2) H 01/02/17 19:56 INR 1.1 01/02/17 19:56 APTT 31 SECONDS (21-34) 01/02/17 19:56
[2017-01-05] MEDS: (Novolog) Insulin Aspart, Recombinant 100 u/ml 10 ml vial SC SCH ×4 (08:03→21:43)
[2017-01-05] MEDS: Meropenem 500 MG in Sodium Chloride 0.9% 100 ML IVPB SCH ×2 (08:33→21:43)
--- NOTE | 2017-01-05 09:12 | PN ---
DATE: 01/04/17 FOLLOWUP RENAL CONSULTATION LOCATION: The patient is located in room 667, bed B. REQUESTED BY: Rigo Comer MD REASON FOR FOLLOWUP: End-stage renal disease and for continuation of the hemodialysis and evaluation of the first hemodialysis. HISTORY OF PRESENT ILLNESS: Mr. Cho is A 76 years old elderly obese male with a history of hypertension, BPH, end-stage renal disease, anemia, UTI, was admitted with worsening renal function and also dyspnea on exertion, bilateral leg swelling, poor appetite, and tremors. Discussed with the patient, and patient's family agreed for initiation of the hemodialysis and signed consent for the dialysis yesterday and unable to place Perm-A-Cath by IR yesterday. The patient underwent for Perm-A-Cath placement this morning and seen in the recovery and also in the evening. The patient is feeling much better, status post hemodialysis this afternoon and had ultrafiltration about 1 liter. The patient tolerated hemodialysis very well without any complications. Resting comfortably. No chest pain. No palpitations. No fever, no cough, no abdominal pain. No nausea, vomiting or diarrhea. PHYSICAL EXAMINATION: VITAL SIGNS: As follows: Blood pressure this morning 167/75, pulse 116, respirations 22, temperature 98.1, and saturation 96%. GENERAL: Mr. Cho is a 76 years old elderly male, well-built, well-nourished, not in distress. HEENT: Pupils are normally reactive to light and accommodation. Conjunctivae are pink. Sclerae are anicteric. Tongue is moist. Trachea is midline. LUNGS: Symmetric on both sides. Bilateral breath sounds present. Bilateral crackles present. CARDIOVASCULAR SYSTEM: [place] at the fifth intercostal space, midclavicular line. S1 and S2 audible. No murmur, no gallop. ABDOMEN: Normal in appearance. Soft and tympanic. No guarding. No rigidity. Slightly protuberant. No hepatosplenomegaly. CENTRAL NERVOUS SYSTEM: The patient is alert, awake, and oriented x3. Sensory and motor system is also within normal limits. EXTREMITIES: No cyanosis. No clubbing. The patient has trace edema in both lower extremities. LABORATORY DATA: As follows; as of 01/04/2017, WBC 6, hemoglobin 8.7, hematocrit is 27.2, and platelets 407. Sodium 137, potassium 4.2, chloride 106, CO2 of 21, BUN 48, creatinine 5.4, glucose 111, and calcium 8.4. Stool for occult blood is negative. Serology hepatitis B surface antibody is negative and surface antibody is negative, core antibody is negative, hepatitis C antibody is negative. As of 12/31/2016, 24-hour urine volume is 1100, creatinine clearance is 8, and 24-hour urine protein is 473 mg. CURRENT MEDICATIONS: Include as follows; hydralazine 50 mg p.o. daily, ferrous sulfate 325 mg p.o. b.i.d., Flomax 0.4 mg p.o. daily, subcutaneous heparin 5000 q.12 hours, multivitamin 1 tablet daily, Lasix 20 mg p.o. daily, Merrem 500 mg IV q.12 hours, Nephro-Portia 1 tablet daily, NovoLog, Phenergan DM, Procrit 10,000 units 3 times a week, Proscar 5 mg daily, Protonix 40 mg daily, Tylenol, and allopurinol 100 mg p.o. daily. ASSESSMENT AND PLAN: In summary, Mr. Cho is a 76 years old elderly male with history of hypertension, benign prostatic hypertrophy, anemia, secondary hyperparathyroidism, with a PTH of 121 as of 01/03/2017, with shortness of breath, poor appetite, tremors, dyspnea on exertion, palpitations, and sinus tachycardia: 1. Renal failure, end-stage renal disease secondary to hypertensive nephrosclerosis, cannot rule out secondary to nonsteroid induced chronic interstitial nephritis. 2. Anemia, secondary to renal failure. 3. Secondary hyperparathyroidism. 4. Mild fluid overload. 5. Urinary tract infection, status post Perm-A-Cath placement this morning by Intervention Radiology and we will get venous mapping of both upper extremities in a.m. and with Vascular Surgery consult with Dr. Loo for possible AV graft placement and for AV fistula placement. We will continue with his current medications and discontinue multivitamin, and we will continue Nephro-Portia 1 tablet daily. We will request social media campaign manager for outpatient hemodialysis placement as requested by the patient's family at [facility]. The patient underwent hemodialysis without any complications with ultrafiltration about 1 liter. We will follow with you. Thank you for allowing me to participate in your patient's care. Emir Kirk MD [facility] # [id number]
[2017-01-05] MEDS: Multivitamin Vitamin B Complex (Nephro-Vite) Tab PO SCH (10:49)
[2017-01-05] MEDS: Pantoprazole 40 mg EC Tab PO SCH ×2 (10:51→21:42)
[2017-01-05] MEDS: Promethazine DM 6.25 mg-15 mg/5 ml Syrup PO SCH ×3 (10:51→21:44)
--- NOTE | 2017-01-05 13:15 | CP.PCM.PN ---
Subjective - Date & Time of Evaluation Date of Evaluation: 01/05/17 Time of Evaluation: 13:13 - Subjective Subjective: feels better. going for hd again. Objective - Vital Signs/Intake and Output Vital Signs (last 24 hours): Temp Pulse Resp BP Pulse Ox 98.1 F 99 H 22 143/88 97 01/05/17 08:35 01/05/17 08:35 01/05/17 08:35 01/05/17 10:52 01/05/17 08:35 Intake and Output: 01/05/17 01/05/17 06:59 18:59 Intake Total 100 100 Output Total 950 Balance -850 100 - Medications Medications: Current Medications Acetaminophen (Tylenol 325mg Tab) 650 mg PO Q6 PRN PRN Reason: Headache Last Admin: 01/05/17 06:20 Dose: 650 mg Allopurinol (Zyloprim) 100 mg PO DAILY [facility] Last Admin: 01/05/17 10:51 Dose: 100 mg Epoetin Kyle (Procrit) 10,000 unit SC TTS [facility] Last Admin: 01/04/17 14:02 Dose: 10,000 unit Ferrous Sulfate (Feosol) 325 mg PO BID [facility] Last Admin: 01/05/17 10:50 Dose: 325 mg Finasteride (Proscar) 5 mg PO DAILY [facility] Last Admin: 01/05/17 10:51 Dose: 5 mg Furosemide (Lasix) 20 mg PO DAILY [facility] Last Admin: 01/05/17 10:52 Dose: 20 mg Heparin Sodium (Porcine) (Heparin) 5,000 units SC Q12 [facility] Hydralazine HCl (Apresoline) 50 mg PO DAILY [facility] Last Admin: 01/05/17 10:50 Dose: Not Given Meropenem 500 mg/ Sodium (Chloride) 100 mls @ 100 mls/hr IVPB Q12H [facility] Last Admin: 01/05/17 08:33 Dose: 100 mls/hr Insulin Aspart (Novolog) 0 unit SC ACHS [facility] PRN Reason: Protocol Last Admin: 01/05/17 12:18 Dose: Not Given Pantoprazole Sodium (Protonix Ec Tab) 40 mg PO BID [facility] Last Admin: 01/05/17 10:51 Dose: 40 mg Promethazine HCl/Dextromethorphan (Phenergan Dm Syrup) 5 ml PO TID [facility] Last Admin: 01/05/17 10:51 Dose: Not Given Tamsulosin HCl (Flomax) 0.4 mg PO DAILY [facility] Last Admin: 01/05/17 10:50 Dose: 0.4 mg Vitamin B Complex/Vit C/Folic Acid (Nephro-Portia) 1 tab PO DAILY@0800 [facility] Last Admin: 01/05/17 10:49 Dose: 1 tab - Labs Labs: 01/04/17 11:47 01/04/17 11:47 PT 12.5 SECONDS (9.7-12.2) H 01/02/17 19:56 INR 1.1 01/02/17 19:56 APTT 31 SECONDS (21-34) 01/02/17 19:56 - Constitutional Appears: Chronically Ill - Head Exam Head Exam: NORMOCEPHALIC - ENT Exam ENT Exam: Normal Exam - Respiratory Exam Respiratory Exam: Clear to Ausculation Bilateral - Cardiovascular Exam Cardiovascular Exam: REGULAR RHYTHM - GI/Abdominal Exam GI & Abdominal Exam: Soft - Extremities Exam Extremities Exam: absent: Pedal Edema - Neurological Exam Neurological Exam: Alert, Oriented x3 Assessment and Plan - Assessment and Plan (Free Text) Assessment: ckd, better. echo has normal lv systolic function.
--- NOTE | 2017-01-05 17:07 | CP.PCM.PN ---
Subjective - Date & Time of Evaluation Date of Evaluation: 01/05/17 Time of Evaluation: 17:06 - Subjective Subjective: pt is seen and examined, follow up consult is dictated #[id number] seen in hd, uf goal is 1 lit Objective - Vital Signs/Intake and Output Vital Signs (last 24 hours): Temp Pulse Resp BP Pulse Ox 98.1 F 94 H 22 143/88 97 01/05/17 08:35 01/05/17 12:00 01/05/17 08:35 01/05/17 10:52 01/05/17 08:35 Intake and Output: 01/05/17 01/05/17 06:59 18:59 Intake Total 100 550 Output Total 950 400 Balance -850 150 - Medications Medications: Current Medications Acetaminophen (Tylenol 325mg Tab) 650 mg PO Q6 PRN PRN Reason: Headache Last Admin: 01/05/17 06:20 Dose: 650 mg Allopurinol (Zyloprim) 100 mg PO DAILY [facility] Last Admin: 01/05/17 10:51 Dose: 100 mg Ferrous Sulfate (Feosol) 325 mg PO BID [facility] Last Admin: 01/05/17 10:50 Dose: 325 mg Finasteride (Proscar) 5 mg PO DAILY [facility] Last Admin: 01/05/17 10:51 Dose: 5 mg Furosemide (Lasix) 20 mg PO DAILY [facility] Last Admin: 01/05/17 10:52 Dose: 20 mg Heparin Sodium (Porcine) (Heparin) 5,000 units SC Q12 [facility] Hydralazine HCl (Apresoline) 50 mg PO DAILY [facility] Last Admin: 01/05/17 10:50 Dose: Not Given Meropenem 500 mg/ Sodium (Chloride) 100 mls @ 100 mls/hr IVPB Q12H [facility] Last Admin: 01/05/17 08:33 Dose: 100 mls/hr Insulin Aspart (Novolog) 0 unit SC ACHS [facility] PRN Reason: Protocol Last Admin: 01/05/17 17:01 Dose: Not Given Pantoprazole Sodium (Protonix Ec Tab) 40 mg PO BID [facility] Last Admin: 01/05/17 10:51 Dose: 40 mg Promethazine HCl/Dextromethorphan (Phenergan Dm Syrup) 5 ml PO TID [facility] Last Admin: 01/05/17 14:47 Dose: Not Given Tamsulosin HCl (Flomax) 0.4 mg PO DAILY [facility] Last Admin: 01/05/17 10:50 Dose: 0.4 mg Vitamin B Complex/Vit C/Folic Acid (Nephro-Portia) 1 tab PO DAILY@0800 [facility] Last Admin: 01/05/17 10:49 Dose: 1 tab - Labs Labs: 01/04/17 11:47 01/04/17 11:47 PT 12.5 SECONDS (9.7-12.2) H 01/02/17 19:56 INR 1.1 01/02/17 19:56 APTT 31 SECONDS (21-34) 01/02/17 19:56
--- NOTE | 2017-01-05 18:40 | CP.PCM.PN ---
Subjective - Date & Time of Evaluation Date of Evaluation: 01/05/17 Time of Evaluation: 08:00 - Subjective Subjective: seen on HD afebrile alert NAD + SOB Objective - Vital Signs/Intake and Output Vital Signs (last 24 hours): Temp Pulse Resp BP Pulse Ox 98 F 98 H 16 145/100 H 98 01/05/17 17:40 01/05/17 17:40 01/05/17 17:40 01/05/17 18:10 01/05/17 17:40 Intake and Output: 01/05/17 01/05/17 06:59 18:59 Intake Total 100 550 Output Total 950 400 Balance -850 150 - Medications Medications: Current Medications Acetaminophen (Tylenol 325mg Tab) 650 mg PO Q6 PRN PRN Reason: Headache Last Admin: 01/05/17 06:20 Dose: 650 mg Allopurinol (Zyloprim) 100 mg PO DAILY [facility] Last Admin: 01/05/17 10:51 Dose: 100 mg Ferrous Sulfate (Feosol) 325 mg PO BID [facility] Last Admin: 01/05/17 10:50 Dose: 325 mg Finasteride (Proscar) 5 mg PO DAILY [facility] Last Admin: 01/05/17 10:51 Dose: 5 mg Furosemide (Lasix) 20 mg PO DAILY [facility] Last Admin: 01/05/17 10:52 Dose: 20 mg Heparin Sodium (Porcine) (Heparin) 5,000 units SC Q12 [facility] Hydralazine HCl (Apresoline) 50 mg PO DAILY [facility] Last Admin: 01/05/17 10:50 Dose: Not Given Meropenem 500 mg/ Sodium (Chloride) 100 mls @ 100 mls/hr IVPB Q12H [facility] Last Admin: 01/05/17 08:33 Dose: 100 mls/hr Insulin Aspart (Novolog) 0 unit SC ACHS [facility] PRN Reason: Protocol Last Admin: 01/05/17 17:01 Dose: Not Given Pantoprazole Sodium (Protonix Ec Tab) 40 mg PO BID [facility] Last Admin: 01/05/17 10:51 Dose: 40 mg Promethazine HCl/Dextromethorphan (Phenergan Dm Syrup) 5 ml PO TID [facility] Last Admin: 01/05/17 14:47 Dose: Not Given Tamsulosin HCl (Flomax) 0.4 mg PO DAILY [facility] Last Admin: 01/05/17 10:50 Dose: 0.4 mg Vitamin B Complex/Vit C/Folic Acid (Nephro-Portia) 1 tab PO DAILY@0800 [facility] Last Admin: 01/05/17 10:49 Dose: 1 tab - Labs Labs: 01/04/17 11:47 01/04/17 11:47 PT 12.5 SECONDS (9.7-12.2) H 01/02/17 19:56 INR 1.1 01/02/17 19:56 APTT 31 SECONDS (21-34) 01/02/17 19:56 - Constitutional Appears: Non-toxic, Chronically Ill - Head Exam Head Exam: NORMOCEPHALIC - Eye Exam Eye Exam: PERRL. absent: Scleral icterus - ENT Exam ENT Exam: Mucous Membranes Dry - Neck Exam Neck Exam: absent: Lymphadenopathy - Respiratory Exam Respiratory Exam: Decreased Breath Sounds - Cardiovascular Exam Cardiovascular Exam: REGULAR RHYTHM - GI/Abdominal Exam GI & Abdominal Exam: Distended, Soft - Rectal Exam Rectal Exam: Deferred - Exam Exam: NORMAL INSPECTION - Extremities Exam Extremities Exam: Pedal Edema. absent: Calf Tenderness, Tenderness - Back Exam Back Exam: absent: CVA tenderness (L), CVA tenderness (R) - Neurological Exam Neurological Exam: Alert, Awake, CN II-XII Intact, Oriented x3 - Psychiatric Exam Psychiatric exam: Anxious Assessment and Plan (1) Abnormal chest xray Status: Acute (2) Acute on chronic renal failure Status: Acute (3) UTI (urinary tract infection) Status: Acute (4) Anemia Status: Acute (5) Confusion and disorientation Status: Acute (6) Hyperkalemia Status: Acute (7) Hyponatremia Status: Acute (8) Obstructive uropathy Status: Acute (9) Symptomatic anemia Status: Acute
[2017-01-06] MEDS: (Novolog) Insulin Aspart, Recombinant 100 u/ml 10 ml vial SC SCH ×4 (08:00→22:49)
[2017-01-06] MEDS: Multivitamin Vitamin B Complex (Nephro-Vite) Tab PO SCH (08:59)
[2017-01-06] MEDS: Pantoprazole 40 mg EC Tab PO SCH ×2 (09:00→17:26)
[2017-01-06] MEDS: Promethazine DM 6.25 mg-15 mg/5 ml Syrup PO SCH ×3 (09:00→17:26)
--- NOTE | 2017-01-06 10:21 | PN ---
FOLLOWUP RENAL CONSULTATION DATE: LOCATION: The patient is located in room 667, bed B. REQUESTED BY: Rigo Comer MD REASON FOR FOLLOWUP: End-stage renal disease, continuation of hemodialysis. SUBJECTIVE: Mr. Cho is 76 years old elderly obese male with a history of longstanding hypertension, BPH, end-stage renal disease, anemia, secondary hyperparathyroidism, was admitted with worsening renal function, bilateral leg swelling, shortness of breath, tachycardia, poor p.o. intake and tremors. The patient was also found to have UTI with Klebsiella pneumoniae and Proteus mirabilis. The patient is being treated for UTI also. The patient was started on hemodialysis yesterday, underwent first hemodialysis without any complication. The patient is scheduled for another dialysis today. The patient is feeling much better, improving appetite. No chest pain, no palpitation. The patient was out of bed to chair today. PHYSICAL EXAMINATION GENERAL: Mr. Cho is 76 years old obese male, well-built, well-nourished, not in acute distress. VITAL SIGNS: Blood pressure 161/98, pulse 117, respiration 16, temperature 98, saturation 98%. Height 5 feet 7 inches and weight is 175 pounds. HEENT: Pupils are normally reactive to light and accommodation. Conjunctivae are pink. Sclerae are anicteric. Tongue is moist. Trachea is midline. CVS: [place] at the fifth intercostal space, midclavicular line. S1 and S2 audible. No murmur, no gallop.. LUNGS: Symmetric on both sides. Bilateral breath sounds present. Occasional basal crackles present. ABDOMEN: Protuberant, soft, tympanic. No guarding. No rigidity. No hepatosplenomegaly. GENERAL MATCHER: The patient is alert, awake, and oriented x3. Nonfocal neurologic examination. Cranial nerves II through XII grossly intact. Sensory and motor system is within normal limits. EXTREMITIES: No cyanosis, no clubbing. The patient has a trace edema in both lower extremities. CURRENT MEDICATIONS: Include as follows: Hydralazine 50 mg p.o. daily, Lasix 20 mg p.o. daily, ferrous sulfate 325 mg p.o. b.i.d., Flomax 0.4 mg daily, subcutaneous heparin 5000 q. 12 hours, Merrem 500 mg q. 12 hours, Nephro-Portia one tablet daily, Phenergan DM syrup 5 mL p.o. t.i.d., Proscar 5 mg p.o. daily, Protonix 40 mg p.o. b.i.d., Tylenol 325 mg p.o. q. 6 hours, and allopurinol 100 mg p.o. daily. His Accu-Cheks are 87, 107 and 94. ASSESSMENT AND PLAN: In summary, Mr. Cho is 76 years old elderly male with hypertension, benign prostatic hypertrophy, end-stage renal disease, anemia, urinary tract infection, on hemodialysis. 1. End-stage renal disease. Continue hemodialysis three times a week. The patient is being dialyzed and ultrafiltration goal is about one liter. Followup with social service for outpatient hemodialysis unit placement and continue physical therapy. 2. Urinary tract infection. Continue Merrem as per infectious disease recommendation, Dr. Gutiérrez. 3. Hypertension. Blood pressure is stable. 4. Congestive heart failure, improving. 5. Uremia. The patient has early uremic symptoms, which are improving and improving his appetite. We will follow with social service for discharge plan and outpatient dialysis unit placement in a.m. We will follow with you. Thank you for allowing me to participate in your patient's care. Emir Kirk MD
[2017-01-06 11:22] LABS: IRON 32 ug/dL (49-181)
[2017-01-06] MEDS: Epoetin Alfa 10,000 unit/ml Dialysis IV SCH (11:35)
[2017-01-06 12:51] LABS: POTASSIUM 3.7 mmol/L (3.6-5.2)
[2017-01-06 12:55] LABS: CALCIUM 8.4 mg/dl (8.6-10.4)
[2017-01-06] MEDS: Meropenem 500 MG in Sodium Chloride 0.9% 100 ML IVPB SCH ×2 (13:03→21:11)
--- NOTE | 2017-01-06 18:26 | CP.PCM.PN ---
Subjective - Date & Time of Evaluation Date of Evaluation: 01/06/17 Time of Evaluation: 18:25 - Subjective Subjective: ok. Objective - Vital Signs/Intake and Output Vital Signs (last 24 hours): Temp Pulse Resp BP Pulse Ox 98.1 F 106 H 20 153/79 H 96 01/06/17 15:06 01/06/17 15:06 01/06/17 15:06 01/06/17 15:06 01/06/17 15:06 Intake and Output: 01/06/17 01/06/17 06:59 18:59 Intake Total 100 450 Output Total 450 500 Balance -350 -50 - Medications Medications: Current Medications Acetaminophen (Tylenol 325mg Tab) 650 mg PO Q6 PRN PRN Reason: Headache Last Admin: 01/05/17 22:18 Dose: 650 mg Allopurinol (Zyloprim) 100 mg PO DAILY [facility] Last Admin: 01/06/17 09:00 Dose: 100 mg Epoetin Kyle (Procrit) 10,000 unit IV [facility] Stop: 01/11/17 09:01 Last Admin: 01/06/17 11:35 Dose: 10,000 unit Ferrous Sulfate (Feosol) 325 mg PO BID [facility] Last Admin: 01/06/17 17:26 Dose: 325 mg Finasteride (Proscar) 5 mg PO DAILY [facility] Last Admin: 01/06/17 09:00 Dose: 5 mg Furosemide (Lasix) 20 mg PO DAILY [facility] Last Admin: 01/06/17 09:00 Dose: 20 mg Heparin Sodium (Porcine) (Heparin) 5,000 units SC Q12 [facility] Heparin Sodium (Porcine) (Heparin) 3,[facility] Stop: 01/11/17 09:01 Last Admin: 01/06/17 11:35 Dose: 3,700 units Hydralazine HCl (Apresoline) 50 mg PO DAILY [facility] Last Admin: 01/06/17 13:00 Dose: 50 mg Meropenem 500 mg/ Sodium (Chloride) 100 mls @ 100 mls/hr IVPB Q12H [facility] Last Admin: 01/06/17 13:03 Dose: 100 mls/hr Insulin Aspart (Novolog) 0 unit SC ACHS [facility] PRN Reason: Protocol Last Admin: 01/06/17 17:29 Dose: Not Given Pantoprazole Sodium (Protonix Ec Tab) 40 mg PO BID [facility] Last Admin: 01/06/17 17:26 Dose: 40 mg Promethazine HCl/Dextromethorphan (Phenergan Dm Syrup) 5 ml PO TID [facility] Last Admin: 01/06/17 17:26 Dose: 5 ml Tamsulosin HCl (Flomax) 0.4 mg PO DAILY [facility] Last Admin: 01/06/17 09:00 Dose: 0.4 mg Vitamin B Complex/Vit C/Folic Acid (Nephro-Portia) 1 tab PO DAILY@0800 [facility] Last Admin: 01/06/17 08:59 Dose: 1 tab - Labs Labs: 01/04/17 11:47 01/06/17 11:20 PT 12.5 SECONDS (9.7-12.2) H 01/02/17 19:56 INR 1.1 01/02/17 19:56 APTT 31 SECONDS (21-34) 01/02/17 19:56 - Constitutional Appears: No Acute Distress, Chronically Ill - Head Exam Head Exam: NORMOCEPHALIC - Respiratory Exam Respiratory Exam: Clear to Ausculation Bilateral - Cardiovascular Exam Cardiovascular Exam: REGULAR RHYTHM - GI/Abdominal Exam GI & Abdominal Exam: Soft Assessment and Plan - Assessment and Plan (Free Text) Plan: ckd. family request gi f/u. needs hospital bed
--- NOTE | 2017-01-06 18:37 | CP.PCM.PN ---
Subjective - Date & Time of Evaluation Date of Evaluation: 01/06/17 Time of Evaluation: 18:36 - Subjective Subjective: pt is seen and examined, follow up consult is dictated #[id number] Objective - Vital Signs/Intake and Output Vital Signs (last 24 hours): Temp Pulse Resp BP Pulse Ox 98.1 F 106 H 20 153/79 H 96 01/06/17 15:06 01/06/17 15:06 01/06/17 15:06 01/06/17 15:06 01/06/17 15:06 Intake and Output: 01/06/17 01/06/17 06:59 18:59 Intake Total 100 450 Output Total 450 500 Balance -350 -50 - Medications Medications: Current Medications Acetaminophen (Tylenol 325mg Tab) 650 mg PO Q6 PRN PRN Reason: Headache Last Admin: 01/05/17 22:18 Dose: 650 mg Allopurinol (Zyloprim) 100 mg PO DAILY [facility] Last Admin: 01/06/17 09:00 Dose: 100 mg Epoetin Kyle (Procrit) 10,000 unit IV [facility] [place] Stop: 01/11/17 09:01 Last Admin: 01/06/17 11:35 Dose: 10,000 unit Ferrous Sulfate (Feosol) 325 mg PO BID [facility] Last Admin: 01/06/17 17:26 Dose: 325 mg Finasteride (Proscar) 5 mg PO DAILY [facility] Last Admin: 01/06/17 09:00 Dose: 5 mg Furosemide (Lasix) 20 mg PO DAILY [facility] Last Admin: 01/06/17 09:00 Dose: 20 mg Heparin Sodium (Porcine) (Heparin) 5,000 units SC Q12 [facility] Heparin Sodium (Porcine) (Heparin) 3,700 units IVP MWF [facility] Stop: 01/11/17 09:01 Last Admin: 01/06/17 11:35 Dose: 3,700 units Hydralazine HCl (Apresoline) 50 mg PO DAILY [facility] Last Admin: 01/06/17 13:00 Dose: 50 mg Meropenem 500 mg/ Sodium (Chloride) 100 mls @ 100 mls/hr IVPB Q12H [facility] Last Admin: 01/06/17 13:03 Dose: 100 mls/hr Insulin Aspart (Novolog) 0 unit SC ACHS [facility] PRN Reason: Protocol Last Admin: 01/06/17 17:29 Dose: Not Given Pantoprazole Sodium (Protonix Ec Tab) 40 mg PO BID [facility] Last Admin: 01/06/17 17:26 Dose: 40 mg Promethazine HCl/Dextromethorphan (Phenergan Dm Syrup) 5 ml PO TID [facility] Last Admin: 01/06/17 17:26 Dose: 5 ml Tamsulosin HCl (Flomax) 0.4 mg PO DAILY [facility] Last Admin: 01/06/17 09:00 Dose: 0.4 mg Vitamin B Complex/Vit C/Folic Acid (Nephro-Portia) 1 tab PO DAILY@0800 [facility] Last Admin: 01/06/17 08:59 Dose: 1 tab - Labs Labs: 01/04/17 11:47 01/06/17 11:20 PT 12.5 SECONDS (9.7-12.2) H 01/02/17 19:56 INR 1.1 01/02/17 19:56 APTT 31 SECONDS (21-34) 01/02/17 19:56
[2017-01-07] MEDS: Multivitamin Vitamin B Complex (Nephro-Vite) Tab PO SCH (08:15)
[2017-01-07] MEDS: (Novolog) Insulin Aspart, Recombinant 100 u/ml 10 ml vial SC SCH ×4 (08:30→22:03)
[2017-01-07] MEDS ORDERED: Iohexol 240 (50 ml) PO ONE (09:15)
[2017-01-07] MEDS: Pantoprazole 40 mg EC Tab PO SCH ×2 (10:20→18:04)
[2017-01-07] MEDS: Promethazine DM 6.25 mg-15 mg/5 ml Syrup PO SCH ×3 (10:21→18:04)
[2017-01-07] MEDS: Meropenem 500 MG in Sodium Chloride 0.9% 100 ML IVPB SCH ×2 (10:26→21:47)
--- NOTE | 2017-01-07 12:19 | CP.PCM.CON ---
History of Present Illness - History of Present Illness History of Present Illness: Covering Dr Truong: 76 yo I male well known to him with admission 10/01 showing acute duodenal ulcer , gastritis. Patient admitted now for worsening renal function and was just started on HD after placement of a catheter. GI consultation requested by family due to difficulty initiating and emptying his bowel movements. No bleeding though he reports some blood with straining when he wiped himself last month. Unclear if he has ever had a colonoscopy. Review of Systems - Cardiovascular Cardiovascular: absent: Chest Pain, Irregular Heart Rhythm - Respiratory Respiratory: Dyspnea on Exertion - Gastrointestinal Gastrointestinal: As Per HPI Past Patient History - Past Medical History & Family History Past Medical History?: Yes - Past Social History Smoking Status: Former Smoker Alcohol: None Drugs: Denies - CARDIAC Hx Cardiac Disorders: Yes Hx Hypercholesterolemia: Yes Hx Hypertension: Yes - PULMONARY Hx Respiratory Disorders: No Other/Comment: former smoker, SOB with exertion - NEUROLOGICAL Hx Neurological Disorder: No - HEENT Hx HEENT Problems: No - RENAL Hx Chronic Kidney Disease: Yes - ENDOCRINE/METABOLIC Hx Endocrine Disorders: Yes Hx Diabetes Mellitus Type 2: Yes - HEMATOLOGICAL/ONCOLOGICAL Hx Anemia: Yes Hx Cirrhosis: No Hx Hepatitis A: No Hx Hepatitis B: No Hx Hepatitis C: No Hx Human Immunodeficiency Virus (HIV): No - INTEGUMENTARY Hx Dermatological Problems: No - MUSCULOSKELETAL/RHEUMATOLOGICAL Hx Musculoskeletal Disorders: Yes Hx Falls: Yes Other/Comment: BLE weakness - GASTROINTESTINAL Hx Gastrointestinal Disorders: No Hx Clostridium Difficile: No Hx Colitis: No Hx Colostomy: No Hx Constipation: Yes Hx Crohn's Disease: No Hx Diarrhea: No Hx Diverticulitis: No Hx Esophageal Varices: No Hx Fatty Liver Disease: No Hx Gall Bladder Disease: No Hx Gastritis: Yes Hx Gastroesophageal Reflux: No Hx Hemorrhoids: No Hx Ileostomy: No Hx Irritable Bowel: No Hx Liver Failure: No Hx Nausea: No Hx Pancreatitis: No HX Swallowing Problems: No Hx Ulcer: Yes Hx Vomiting: No Other/Comment: abdominal area distended - GENITOURINARY/GYNECOLOGICAL Hx Genitourinary Disorders: Yes Other/Comment: BPH - PSYCHIATRIC Hx Substance Use: No - SURGICAL HISTORY Hx Appendectomy: Yes - ANESTHESIA Hx Anesthesia: Yes Meds Allergies/Adverse Reactions: Allergies Allergy/AdvReac Type Severity Reaction Status Date / Time calcium carbonate [From Tums] Allergy Verified 12/29/16 17:40 dates Allergy Uncoded 12/29/16 17:40 - Medications Medications: Current Medications Acetaminophen (Tylenol 325mg Tab) 650 mg PO Q6 PRN PRN Reason: Headache Last Admin: 01/07/17 05:53 Dose: 650 mg Allopurinol (Zyloprim) 100 mg PO DAILY [facility] Last Admin: 01/07/17 10:20 Dose: 100 mg Epoetin Kyle (Procrit) 10,000 unit IV [facility] Stop: 01/11/17 09:01 Last Admin: 01/06/17 11:35 Dose: 10,000 unit Ferrous Sulfate (Feosol) 325 mg PO BID [facility] Last Admin: 01/07/17 10:20 Dose: 325 mg Finasteride (Proscar) 5 mg PO DAILY [facility] Last Admin: 01/07/17 10:20 Dose: 5 mg Furosemide (Lasix) 20 mg PO DAILY [facility] Last Admin: 01/07/17 10:20 Dose: 20 mg Heparin Sodium (Porcine) (Heparin) 5,000 units SC Q12 [facility] Heparin Sodium (Porcine) (Heparin) 3,700 units IVP [facility] Stop: 01/11/17 09:01 Last Admin: 01/06/17 11:35 Dose: 3,700 units Hydralazine HCl (Apresoline) 50 mg PO DAILY [facility] Last Admin: 01/07/17 10:20 Dose: 50 mg Meropenem 500 mg/ Sodium (Chloride) 100 mls @ 100 mls/hr IVPB Q12H [facility] Last Admin: 01/07/17 10:26 Dose: 100 mls/hr Insulin Aspart (Novolog) [address] [facility] PRN Reason: Protocol Last Admin: 01/07/17 08:30 Dose: Not Given Pantoprazole Sodium (Protonix Ec Tab) 40 mg PO BID [facility] Last Admin: 01/07/17 10:20 Dose: 40 mg Promethazine HCl/Dextromethorphan (Phenergan Dm Syrup) 5 ml PO TID [facility] Last Admin: 01/07/17 10:21 Dose: 5 ml Tamsulosin HCl (Flomax) 0.4 mg PO DAILY [facility] Last Admin: 01/07/17 10:20 Dose: 0.4 mg Vitamin B Complex/Vit C/Folic Acid (Nephro-Portia) 1 tab PO DAILY@0800 [facility] Last Admin: 01/07/17 08:15 Dose: 1 tab Physical Exam - Constitutional Appears: No Acute Distress - Head Exam Head Exam: ATRAUMATIC, NORMOCEPHALIC - Eye Exam Eye Exam: EOMI, PERRL - Neck Exam Additional comments: Catheter in R neck - Respiratory Exam Respiratory Exam: Decreased Breath Sounds - Cardiovascular Exam Cardiovascular Exam: REGULAR RHYTHM, +S1 - GI/Abdominal Exam GI & Abdominal Exam: Normal Bowel Sounds, Soft. absent: Distended, Firm, Mass, Organomegaly, Rebound, Rigid, Tenderness Additional comments: morbidly obese. - Rectal Exam Additional comments: palpable brown stool - Extremities Exam Extremities exam: Positive for: normal inspection Results - Vital Signs Recent Vital Signs: Last Vital Signs Temp 98.2 F 01/07/17 07:00 Pulse 108 H 01/07/17 10:16 Resp 20 01/07/17 10:16 BP 153/98 H 01/07/17 10:20 Pulse Ox 99 01/07/17 10:16 - Labs Result Diagrams: 01/04/17 11:47 01/06/17 11:20 Labs: Laboratory Results - last 24 hr 01/06/17 01/06/17 01/06/17 11:20 16:32 21:07 Sodium 137 Potassium 3.7 Chloride 98 Carbon Dioxide 27 Anion Gap 15 BUN 20 Creatinine 2.7 H Est GFR ( Amer) 28 Est GFR (Non-Af Amer) 23 POC Glucose (mg/dL) 130 H 113 H Random Glucose 88 Calcium 8.4 L 01/07/17 01/07/17 06:53 11:48 Sodium Potassium Chloride Carbon Dioxide Anion Gap BUN Creatinine Est GFR ( Amer) Est GFR (Non-Af Amer) POC Glucose (mg/dL) 79 103 Random Glucose Calcium Assessment & Plan (1) Lower abdominal pain Assessment and Plan: CT Scan of abdomen and pelvis and stool occult blood ordered (OB negative x1) Will likely need Colonoscopy next week when stable from renal point of view. Status: Acute (2) Constipation Assessment and Plan: Miralax prn Colonoscopy next week by Dr Truong when medically stable Status: Acute (3) H/O peptic ulcer Status: Resolved
--- NOTE | 2017-01-07 14:10 | CP.PCM.PN ---
Subjective - Date & Time of Evaluation Date of Evaluation: 01/07/17 Time of Evaluation: 14:10 - Subjective Subjective: pt is seen and examined, follow up consult is dictated #[id number] next hd on monday, s/p ? colonoscopy on 10/10/2016 as per pt Objective - Vital Signs/Intake and Output Vital Signs (last 24 hours): Temp Pulse Resp BP Pulse Ox 98.2 F 99 H 20 153/98 H 99 01/07/17 07:00 01/07/17 12:00 01/07/17 10:16 01/07/17 10:20 01/07/17 10:16 Intake and Output: 01/07/17 01/07/17 06:59 18:59 Intake Total 300 200 Output Total 1000 Balance -700 200 - Medications Medications: Current Medications Acetaminophen (Tylenol 325mg Tab) 650 mg PO Q6 PRN PRN Reason: Headache Last Admin: 01/07/17 05:53 Dose: 650 mg Allopurinol (Zyloprim) 100 mg PO DAILY [facility] Last Admin: 01/07/17 10:20 Dose: 100 mg Epoetin Kyle (Procrit) 10,000 unit IV F [facility] Stop: 01/11/17 09:01 Last Admin: 01/06/17 11:35 Dose: 10,000 unit Ferrous Sulfate (Feosol) 325 mg PO BID [facility] Last Admin: 01/07/17 10:20 Dose: 325 mg Finasteride (Proscar) 5 mg PO DAILY [facility] Last Admin: 01/07/17 10:20 Dose: 5 mg Furosemide (Lasix) 20 mg PO DAILY [facility] Last Admin: 01/07/17 10:20 Dose: 20 mg Heparin Sodium (Porcine) (Heparin) 5,000 units SC Q12 [facility] Heparin Sodium (Porcine) (Heparin) 3,700 units IVP MWF [facility] Stop: 01/11/17 09:01 Last Admin: 01/06/17 11:35 Dose: 3,700 units Hydralazine HCl (Apresoline) 50 mg PO DAILY [facility] Last Admin: 01/07/17 10:20 Dose: 50 mg Meropenem 500 mg/ Sodium (Chloride) 100 mls @ 100 mls/hr IVPB Q12H [facility] Last Admin: 01/07/17 10:26 Dose: 100 mls/hr Insulin Aspart (Novolog) 0 unit SC ACHS [facility] PRN Reason: Protocol Last Admin: 01/07/17 12:30 Dose: Not Given Pantoprazole Sodium (Protonix Ec Tab) 40 mg PO BID [facility] Last Admin: 01/07/17 10:20 Dose: 40 mg Promethazine HCl/Dextromethorphan (Phenergan Dm Syrup) 5 ml PO TID [facility] Last Admin: 01/07/17 10:21 Dose: 5 ml Tamsulosin HCl (Flomax) 0.4 mg PO DAILY [facility] Last Admin: 01/07/17 10:20 Dose: 0.4 mg Vitamin B Complex/Vit C/Folic Acid (Nephro-Portia) 1 tab PO DAILY@0800 [facility] Last Admin: 01/07/17 08:15 Dose: 1 tab - Labs Labs: 01/04/17 11:47 01/06/17 11:20 PT 12.5 SECONDS (9.7-12.2) H 01/02/17 19:56 INR 1.1 01/02/17 19:56 APTT 31 SECONDS (21-34) 01/02/17 19:56
--- NOTE | 2017-01-07 14:16 | CT ---
CT abdomen and pelvis History: Renal failure. Abdominal pain. Comparison: None available. Technique: Multiple contiguous axial images were performed through the abdomen and pelvis without the use of intravenous contrast. Findings: Small bilateral pleural effusions. Small pericardial effusion. Coronary calcifications. Scattered atelectasis in both lung bases. Bronchiectatic changes at the bases. 4.3 x 3.7 centimeter focal area of nodular consolidation within the right lower lobe. Additional scattered patchy ground-glass opacities within both lower lobes. Liver is preserved. Cholelithiasis with calculi measuring to 1.3 and 1.1 centimeters. Spleen is preserved. Nodular thickening of the bilateral adrenal glands. Pancreas is preserved. Upper abdominal bowel is preserved. Right kidney: Mild perinephric fat stranding. Renal vascular calcifications. Mildly atrophic. No gross calculi or hydronephrosis. Left Kidney: Moderate perinephric fat stranding and fluid. No calculi or hydronephrosis. Garay catheter in an underdistended urinary bladder. Fecal retention in the colon. Appendix not well visualized. Calcification and plaque within the aorta. Few shotty para-aortic and mesenteric lymph nodes. Degenerative changes in the spine with paravertebral osteophytes. Degenerative changes in the bilateral hips. Impression: 1. Small bilateral pleural effusions. Small pericardial effusion. Coronary calcifications. 2. Scattered atelectasis in both lung bases. Bronchiectatic changes at the bases. 4.3 x 3.7 centimeter focal area of nodular consolidation within the right lower lobe. Additional scattered patchy ground-glass opacities within both lower lobes. 3. Cholelithiasis with calculi measuring to 1.3 and 1.1 centimeters. 4. Mild to moderate bilateral perinephric fat stranding. Renal vascular calcifications. Mildly atrophic. No gross calculi or hydronephrosis. 5. Garay catheter in an underdistended urinary bladder. 6. Fecal retention in the colon. Appendix not well visualized. Additional findings as above.
--- NOTE | 2017-01-07 18:13 | PN ---
FOLLOWUP RENAL CONSULTATION LOCATION: The patient is located in room #667, B. REQUESTED BY: Rigo Comer MD REASON FOR FOLLOWUP: End-stage renal disease, continuation of hemodialysis. SUBJECTIVE: The patient is 76 years old elderly, obese male with a history of hypertension, BPH, UTI, anemia, osteoarthritis and worsening renal function, was admitted with shortness of breath, cough, bilateral leg swelling, worsening renal function, tremors and poor appetite. The patient underwent hemodialysis on Monday, and Monday. The patient is feeling much better, not in acute distress. Again, no chest pain, no palpitation. Occasional abdominal discomfort. The patient claims he did not move his bowel today. Denies any swelling of the legs. Denies any dysuria or frequency. The patient has a Garay catheter with a bedside bag. PHYSICAL EXAMINATION: VITAL SIGNS: Blood pressure 153/98, pulse 99, respiration 20, temperature 98.2, saturation 99%. Height 5 feet 7 inches and weight is 180 pounds. GENERAL: The patient is a 76-year-old elderly male, obese, not in distress. HEENT: Pupils are normally reactive to light and accommodation. Conjunctivae are pink. Sclerae are anicteric. Tongue is moist. Trachea is midline. LUNGS: Symmetric on both sides. Bilateral breath sounds present. Clear on auscultation. CARDIOVASCULAR SYSTEM: [place] at the fifth intercostal space, midclavicular line. S1 and S2 audible. No murmur, no gallop. ABDOMEN: Normal in appearance. Soft, tympanic. No guarding. No rigidity. No hepatosplenomegaly. CENTRAL NERVOUS SYSTEM: The patient is alert, awake, and oriented x2 to x3. Sensory and motor system is grossly within normal limits. EXTREMITIES: No cyanosis, no clubbing, no edema. CURRENT MEDICATIONS: Include as follows: Hydralazine 50 mg p.o. daily; Feosol 325 mg p.o. b.i.d.; Flomax 0.4 mg daily; subQ heparin 5000 units q. 12 hours, heparin 3700 units in the Perm-A-Cath 3 times weekly; Lasix 20 mg p.o. daily; Merrem 500 mg q. 12 hours; Nephro-Portia one tablet daily; Phenergan DM 5 mL p.o. t.i.d.; Procrit 10,000 units 3 times a week; Proscar 5 mg daily; Protonix 40 mg p.o. b.i.d.; allopurinol 100 mg p.o. daily and Tylenol. LABORATORY DATA: No new labs are available. As of 01/06/2017, BUN 20, creatinine 2.7. Accu-Check this morning is 79 and 103. ASSESSMENT: In summary, the patient is a 76-year-old elderly, obese male with a history of hypertension, benign prostatic hypertrophy, urinary tract infection, anemia, renal failure, congestive heart failure, started on hemodialysis. 1. End-stage renal disease. Continue hemodialysis 3 times a week, Monday, Monday and Monday. 2. Anemia secondary to renal failure. 3. Urinary tract infection. Continue Merrem for Klebsiella pneumoniae and proteus as per infectious disease recommendations. 4. Followup with gastroenterology for abdominal pain for possible colonoscopy. The patient claims he had a colonoscopy done on 10/10/2016, please review with gastroenterology prior to the repeat colonoscopy if needed. We will follow with you. Thank you for allowing me to participate in your patient's care. Emir Kirk MD
[2017-01-08] MEDS: (Novolog) Insulin Aspart, Recombinant 100 u/ml 10 ml vial SC SCH ×4 (07:38→22:00)
--- NOTE | 2017-01-08 09:22 | CP.PCM.PN ---
Subjective - Date & Time of Evaluation Date of Evaluation: 01/08/17 Time of Evaluation: 09:20 - Subjective Subjective: COVERING DR MYERS Still c/o constipation. no bleeding or pain. Objective - Vital Signs/Intake and Output Vital Signs (last 24 hours): Temp Pulse Resp BP Pulse Ox 98 F 104 H 20 145/79 95 01/08/17 07:25 01/08/17 07:25 01/08/17 07:25 01/08/17 07:25 01/08/17 07:25 Intake and Output: 01/08/17 01/08/17 06:59 18:59 Output Total 1150 Balance -1150 - Medications Medications: Current Medications Acetaminophen (Tylenol 325mg Tab) 650 mg PO Q6 PRN PRN Reason: Headache Last Admin: 01/08/17 05:47 Dose: 650 mg Allopurinol (Zyloprim) 100 mg PO DAILY [facility] Last Admin: 01/07/17 10:20 Dose: 100 mg Epoetin Kyle (Procrit) 10,000 unit IV [facility] Stop: 01/11/17 09:01 Last Admin: 01/06/17 11:35 Dose: 10,000 unit Ferrous Sulfate (Feosol) 325 mg PO BID [facility] Last Admin: 01/07/17 18:04 Dose: 325 mg Finasteride (Proscar) 5 mg PO DAILY [facility] Last Admin: 01/07/17 10:20 Dose: 5 mg Furosemide (Lasix) 20 mg PO DAILY [facility] Last Admin: 01/07/17 10:20 Dose: 20 mg Heparin Sodium (Porcine) (Heparin) 5,000 units SC Q12 [facility] Heparin Sodium (Porcine) (Heparin) 3,700 units IVP [facility] Stop: 01/11/17 09:01 Last Admin: 01/06/17 11:35 Dose: 3,700 units Hydralazine HCl (Apresoline) 50 mg PO DAILY [facility] Last Admin: 01/07/17 10:20 Dose: 50 mg Meropenem 500 mg/ Sodium (Chloride) 100 mls @ 100 mls/hr IVPB Q12H [facility] Last Admin: 01/07/17 21:47 Dose: 100 mls/hr Insulin Aspart (Novolog) 0 unit SC ACHS [facility] PRN Reason: Protocol Last Admin: 01/08/17 07:38 Dose: Not Given Pantoprazole Sodium (Protonix Ec Tab) 40 mg PO BID [facility] Last Admin: 01/07/17 18:04 Dose: 40 mg Promethazine HCl/Dextromethorphan (Phenergan Dm Syrup) 5 ml PO TID [facility] Last Admin: 01/07/17 18:04 Dose: 5 ml Tamsulosin HCl (Flomax) 0.4 mg PO DAILY [facility] Last Admin: 01/07/17 10:20 Dose: 0.4 mg Vitamin B Complex/Vit C/Folic Acid (Nephro-Portia) 1 tab PO DAILY@0800 [facility] Last Admin: 01/07/17 08:15 Dose: 1 tab - Labs Labs: 01/04/17 11:47 01/06/17 11:20 PT 12.5 SECONDS (9.7-12.2) H 01/02/17 19:56 INR 1.1 01/02/17 19:56 APTT 31 SECONDS (21-34) 01/02/17 19:56 - Constitutional Appears: No Acute Distress - Head Exam Head Exam: ATRAUMATIC, NORMOCEPHALIC - Eye Exam Eye Exam: EOMI, PERRL - Respiratory Exam Respiratory Exam: NORMAL BREATHING PATTERN - Cardiovascular Exam Cardiovascular Exam: REGULAR RHYTHM - GI/Abdominal Exam GI & Abdominal Exam: Soft, Normal Bowel Sounds. absent: Distended, Tenderness, Mass Assessment and Plan (1) Lower abdominal pain Status: Acute (2) Constipation Assessment & Plan: For colonoscopy tomorrow. Colytely prep and clearance for procedure d/w Renal attending Dr Cameron. Prep orders written for am Will plan for dialysis to follow colonoscopy. Status: Acute (3) H/O peptic ulcer Status: Resolved
[2017-01-08] MEDS: Pantoprazole 40 mg EC Tab PO SCH ×2 (10:21→17:46)
[2017-01-08] MEDS: Meropenem 500 MG in Sodium Chloride 0.9% 100 ML IVPB SCH ×2 (10:22→21:45)
[2017-01-08] MEDS: Multivitamin Vitamin B Complex (Nephro-Vite) Tab PO SCH (10:23)
[2017-01-08] MEDS: Promethazine DM 6.25 mg-15 mg/5 ml Syrup PO SCH ×3 (10:23→17:47)
--- NOTE | 2017-01-08 14:13 | CP.PCM.PN ---
Subjective - Date & Time of Evaluation Date of Evaluation: 01/08/17 Time of Evaluation: 14:13 - Subjective Subjective: pt is seen and examined, follow up consult is dictated #[id number] Objective - Vital Signs/Intake and Output Vital Signs (last 24 hours): Temp Pulse Resp BP Pulse Ox 98 F 94 H 20 145/78 95 01/08/17 07:25 01/08/17 08:25 01/08/17 07:25 01/08/17 10:22 01/08/17 07:25 Intake and Output: 01/08/17 01/08/17 06:59 18:59 Output Total 1150 Balance -1150 - Medications Medications: Current Medications Acetaminophen (Tylenol 325mg Tab) 650 mg PO Q6 PRN PRN Reason: Headache Last Admin: 01/08/17 05:47 Dose: 650 mg Allopurinol (Zyloprim) 100 mg PO DAILY [facility] Last Admin: 01/08/17 10:21 Dose: 100 mg Bisacodyl (Dulcolax) 10 mg PO ONCE ONE Stop: 01/08/17 17:01 Epoetin Kyle (Procrit) 10,000 unit IV [facility] Stop: 01/11/17 09:01 Last Admin: 01/06/17 11:35 Dose: 10,000 unit Ferrous Sulfate (Feosol) 325 mg PO BID [facility] Last Admin: 01/08/17 10:21 Dose: 325 mg Finasteride (Proscar) 5 mg PO DAILY [facility] Last Admin: 01/08/17 10:21 Dose: 5 mg Furosemide (Lasix) 20 mg PO DAILY [facility] Last Admin: 01/08/17 10:22 Dose: 20 mg Heparin Sodium (Porcine) (Heparin) 5,000 units SC Q12 [facility] Heparin Sodium (Porcine) (Heparin) 3,700 units IVP MWF [facility] Stop: 01/11/17 09:01 Last Admin: 01/06/17 11:35 Dose: 3,700 units Hydralazine HCl (Apresoline) 50 mg PO DAILY [facility] Last Admin: 01/07/17 10:20 Dose: 50 mg Meropenem 500 mg/ Sodium (Chloride) 100 mls @ 100 mls/hr IVPB Q12H [facility] Last Admin: 01/08/17 10:22 Dose: 100 mls/hr Insulin Aspart (Novolog) 0 unit SC ACHS [facility] PRN Reason: Protocol Last Admin: 01/08/17 11:59 Dose: Not Given Pantoprazole Sodium (Protonix Ec Tab) 40 mg PO BID [facility] Last Admin: 01/08/17 10:21 Dose: 40 mg Polyethylene Glycol/Electrolytes (Golytely) 4,000 ml PO ONCE ONE Stop: 01/08/17 19:01 Promethazine HCl/Dextromethorphan (Phenergan Dm Syrup) 5 ml PO TID [facility] Last Admin: 01/08/17 10:23 Dose: Not Given Tamsulosin HCl (Flomax) 0.4 mg PO DAILY [facility] Last Admin: 01/08/17 12:00 Dose: 0.4 mg Vitamin B Complex/Vit C/Folic Acid (Nephro-Portia) 1 tab PO DAILY@0800 [facility] Last Admin: 01/08/17 10:23 Dose: 1 tab - Labs Labs: 01/04/17 11:47 01/06/17 11:20 PT 12.5 SECONDS (9.7-12.2) H 01/02/17 19:56 INR 1.1 01/02/17 19:56 APTT 31 SECONDS (21-34) 01/02/17 19:56
[2017-01-08] MEDS ORDERED: Paricalcitol 2 mcg/ml Inj IV ONE (14:30)
--- NOTE | 2017-01-08 15:08 | CP.PCM.PN ---
Subjective - Date & Time of Evaluation Date of Evaluation: 01/08/17 Time of Evaluation: 08:00 - Subjective Subjective: no fever alert less sob Objective - Vital Signs/Intake and Output Vital Signs (last 24 hours): Temp Pulse Resp BP Pulse Ox 98 F 94 H 20 145/78 95 01/08/17 07:25 01/08/17 08:25 01/08/17 07:25 01/08/17 10:22 01/08/17 07:25 Intake and Output: 01/08/17 01/08/17 06:59 18:59 Output Total 1150 Balance -1150 - Medications Medications: Current Medications Acetaminophen (Tylenol 325mg Tab) 650 mg PO Q6 PRN PRN Reason: Headache Last Admin: 01/08/17 05:47 Dose: 650 mg Allopurinol (Zyloprim) 100 mg PO DAILY [facility] Last Admin: 01/08/17 10:21 Dose: 100 mg Bisacodyl (Dulcolax) 10 mg PO ONCE ONE Stop: 01/08/17 17:01 Epoetin Kyle (Procrit) 10,000 unit IV [facility] Stop: 01/11/17 09:01 Last Admin: 01/06/17 11:35 Dose: 10,000 unit Ferric Sodium Gluconate Complex (Ferrlecit) 125 mg IVPB DAILY [facility] Stop: 01/17/17 10:01 Finasteride (Proscar) 5 mg PO DAILY [facility] Last Admin: 01/08/17 10:21 Dose: 5 mg Furosemide (Lasix) 20 mg PO DAILY [facility] Last Admin: 01/08/17 10:22 Dose: 20 mg Heparin Sodium (Porcine) (Heparin) 5,000 units SC Q12 [facility] Heparin Sodium (Porcine) (Heparin) 3,700 units IVP MWF [facility] Stop: 01/11/17 09:01 Last Admin: 01/06/17 11:35 Dose: 3,700 units Hydralazine HCl (Apresoline) 50 mg PO DAILY [facility] Last Admin: 01/07/17 10:20 Dose: 50 mg Meropenem 500 mg/ Sodium (Chloride) 100 mls @ 100 mls/hr IVPB Q12H [facility] Last Admin: 01/08/17 10:22 Dose: 100 mls/hr Insulin Aspart (Novolog) 0 unit SC ACHS [facility] PRN Reason: Protocol Last Admin: 01/08/17 11:59 Dose: Not Given Pantoprazole Sodium (Protonix Ec Tab) 40 mg PO BID [facility] Last Admin: 01/08/17 10:21 Dose: 40 mg Paricalcitol (Zemplar) 2 mcg IV MWF [facility] Polyethylene Glycol/Electrolytes (Golytely) 4,000 ml PO ONCE ONE Stop: 01/08/17 19:01 Promethazine HCl/Dextromethorphan (Phenergan Dm Syrup) 5 ml PO TID [facility] Last Admin: 01/08/17 14:41 Dose: 5 ml Tamsulosin HCl (Flomax) 0.4 mg PO DAILY [facility] Last Admin: 01/08/17 12:00 Dose: 0.4 mg Vitamin B Complex/Vit C/Folic Acid (Nephro-Portia) 1 tab PO DAILY@0800 [facility] Last Admin: 01/08/17 10:23 Dose: 1 tab - Labs Labs: 01/04/17 11:47 01/06/17 11:20 PT 12.5 SECONDS (9.7-12.2) H 01/02/17 19:56 INR 1.1 01/02/17 19:56 APTT 31 SECONDS (21-34) 01/02/17 19:56 - Constitutional Appears: Non-toxic, Chronically Ill - Head Exam Head Exam: NORMOCEPHALIC - Eye Exam Eye Exam: PERRL. absent: Scleral icterus - ENT Exam ENT Exam: Mucous Membranes Dry - Neck Exam Neck Exam: absent: Lymphadenopathy - Respiratory Exam Respiratory Exam: Decreased Breath Sounds, Rhonchi - Cardiovascular Exam Cardiovascular Exam: REGULAR RHYTHM - GI/Abdominal Exam GI & Abdominal Exam: Distended, Soft Assessment and Plan (1) Abnormal chest xray Status: Acute (2) Acute on chronic renal failure Status: Acute (3) UTI (urinary tract infection) Status: Acute (4) Anemia Status: Acute (5) Confusion and disorientation Status: Acute (6) Hyperkalemia Status: Acute (7) Hyponatremia Status: Acute (8) Obstructive uropathy Status: Acute (9) Symptomatic anemia Status: Acute
[2017-01-08] MEDS ORDERED: Bisacodyl 5mg EC Tab PO ONE (17:00)
--- NOTE | 2017-01-08 17:02 | CP.PCM.PN ---
Subjective - Date & Time of Evaluation Date of Evaluation: 01/08/17 Time of Evaluation: 17:00 - Subjective Subjective: hungry.bp up Objective - Vital Signs/Intake and Output Vital Signs (last 24 hours): Temp Pulse Resp BP Pulse Ox 98.2 F 103 H 20 182/107 H 96 01/08/17 16:35 01/08/17 16:35 01/08/17 16:35 01/08/17 16:35 01/08/17 16:35 Intake and Output: 01/08/17 01/08/17 06:59 18:59 Output Total 1150 Balance -1150 - Medications Medications: Current Medications Acetaminophen (Tylenol 325mg Tab) 650 mg PO Q6 PRN PRN Reason: Headache Last Admin: 01/08/17 05:47 Dose: 650 mg Allopurinol (Zyloprim) 100 mg PO DAILY [facility] Last Admin: 01/08/17 10:21 Dose: 100 mg Amlodipine Besylate (Norvasc) 2.5 mg PO STAT [facility] Stop: 01/08/17 16:57 Bisacodyl (Dulcolax) 10 mg PO ONCE ONE Stop: 01/08/17 17:01 Epoetin Kyle (Procrit) 10,000 unit IV [facility] Stop: 01/11/17 09:01 Last Admin: 01/06/17 11:35 Dose: 10,000 unit Ferric Sodium Gluconate Complex (Ferrlecit) 125 mg IVPB [facility]ILY [facility] Stop: 01/17/17 10:01 Finasteride (Proscar) 5 mg PO DAILY [facility] Last Admin: 01/08/17 10:21 Dose: 5 mg Furosemide (Lasix) 20 mg PO DAILY [facility] Last Admin: 01/08/17 10:22 Dose: 20 mg Heparin Sodium (Porcine) (Heparin) 5,000 units SC Q12 [facility] Heparin Sodium (Porcine) (Heparin) 3,700 units IVP MWF [facility] Stop: 01/11/17 09:01 Last Admin: 01/06/17 11:35 Dose: 3,700 units Hydralazine HCl (Apresoline) 50 mg PO DAILY [facility] Last Admin: 01/07/17 10:20 Dose: 50 mg Meropenem 500 mg/ Sodium (Chloride) 100 mls @ 100 mls/hr IVPB Q12H [facility] Last Admin: 01/08/17 10:22 Dose: 100 mls/hr Insulin Aspart (Novolog) 0 unit SC ACHS [facility] PRN Reason: Protocol Last Admin: 01/08/17 11:59 Dose: Not Given Pantoprazole Sodium (Protonix Ec Tab) 40 mg PO BID [facility] Last Admin: 01/08/17 10:21 Dose: 40 mg Paricalcitol (Zemplar) 2 mcg IV MWF [facility] Polyethylene Glycol/Electrolytes (Golytely) 4,000 ml PO ONCE ONE Stop: 01/08/17 19:01 Promethazine HCl/Dextromethorphan (Phenergan Dm Syrup) 5 ml PO TID [facility] Last Admin: 01/08/17 14:41 Dose: 5 ml Tamsulosin HCl (Flomax) 0.4 mg PO DAILY [facility] Last Admin: 01/08/17 12:00 Dose: 0.4 mg Vitamin B Complex/Vit C/Folic Acid (Nephro-Portia) 1 tab PO DAILY@0800 [facility] Last Admin: 01/08/17 10:23 Dose: 1 tab - Labs Labs: 01/04/17 11:47 01/06/17 11:20 PT 12.5 SECONDS (9.7-12.2) H 01/02/17 19:56 INR 1.1 01/02/17 19:56 APTT 31 SECONDS (21-34) 01/02/17 19:56 - Constitutional Appears: No Acute Distress - Head Exam Head Exam: NORMOCEPHALIC - Neck Exam Neck Exam: Normal Inspection - Cardiovascular Exam Cardiovascular Exam: REGULAR RHYTHM - GI/Abdominal Exam GI & Abdominal Exam: Soft - Neurological Exam Neurological Exam: Alert, Oriented x3 Assessment and Plan - Assessment and Plan (Free Text) Assessment: [email or web address] adjust dose of hydralazine. hold off with colon.done 10/01/ hopefully d/c am
[2017-01-08] MEDS ORDERED: Peg-Electrolyte Oral Soln 4L (Golytely) PO ONE (19:00)
[2017-01-09 07:50] LABS: BASO # 0.1 K/uL (0.0-0.2); BASO % 1.3 % (0.0-2.0); EOS # 0.6 K/uL (0.0-0.7); EOS % 11.3 % (0.0-4.0); HEMATOCRIT 28.1 % (35.0-51.0); LYMPH # 1.5 K/uL (1.0-4.3); LYMPH % 26.5 % (20.0-40.0); MEAN CELL VOLUME 88.1 fL (80.0-94.0); MEAN CORPUSCULAR HEMOGLOBIN 28.7 pg (27.0-31.0); MEAN CORPUSCULAR HGB CONC 32.5 g/dL (33.0-37.0); MEAN PLATELET VOLUME 7.5 fL (7.2-11.7); MONO # 0.6 K/uL (0.0-0.8); MONO % 10.8 % (0.0-10.0); NRBC % 0.1 % (0.0-2.0); RED CELL DISTRIBUTION WIDTH 19.4 % (11.5-14.5); WHITE BLOOD COUNT 5.6 K/uL (4.8-10.8)
[2017-01-09 08:00] LABS: POTASSIUM 4.3 mmol/L (3.6-5.2)
[2017-01-09 08:03] LABS: CALCIUM 8.4 mg/dl (8.6-10.4); PHOSPHOROUS 3.3 mg/dL (2.5-4.5)
--- NOTE | 2017-01-09 08:23 | PN ---
FOLLOWUP RENAL CONSULTATION DATE: LOCATION: The patient is located in room 667, bed B. REQUESTING PHYSICIAN: Rigo Comer MD REASON FOR FOLLOWUP: End-stage renal disease, continuation of hemodialysis. HISTORY OF PRESENT ILLNESS: Mr. Cho is 76 years old elderly, obese male with a history of hypertension, BPH, peptic ulcer disease, CHF, UTI with worsening renal function and was started on hemodialysis last week. The patient is feeling much better, again not in acute distress. Denies any chest pain or palpitations. Denies any fever or cough. No nausea, vomiting, or diarrhea. Less swelling of the legs. PHYSICAL EXAMINATION: VITAL SIGNS: As follows; blood pressure 145/78, pulse 94, respirations 20, temperature 98, saturation 95%, height 5 feet 7 inches, and weight 180 pounds. GENERAL: Mr. Cho is 76 years old elderly obese male, moderately built and moderately nourished not in distress. HEENT: Pupils are normal and reactive to light and accommodation. Conjunctivae pink. Sclerae anicteric. Tongue is moist. Trachea is midline. LUNGS: Symmetric on both sides. Bilateral breath sounds present. Clear on auscultation. CARDIOVASCULAR: [place] at the fifth intercostal space, midclavicular line. S1 and S2 audible. No murmur or gallop. ABDOMEN: Normal in appearance, soft, and tympanic. No guarding. No rigidity. No hepatosplenomegaly. CENTRAL NERVOUS SYSTEM: The patient is alert, awake, and oriented x3. Sensory and motor system is grossly within normal limits. EXTREMITIES: No cyanosis. No clubbing. No edema. CURRENT MEDICATIONS: Include as follows; hydralazine 50 mg p.o. daily, Dulcolax 10 mg p.o., Feosol 325 mg p.o. b.i.d., Flomax 0.4 mg p.o. daily, GoLYTELY, ,subcutaneous heparin 5000 q.12 hours and heparin 3700 units 3 times a week in Perm-A-Cath, Lasix 20 mg p.o. daily, Merrem 100 mg q.12 hours, Nephro-Portia 1 tablet daily, Phenergan DM p.r.n. for cough, Procrit 10,000 units 3 times a week, Proscar 5 mg p.o. daily, Protonix 40 mg p.o. b.i.d., Tylenol, and allopurinol 100 mg p.o. daily. His stool for occult blood as of 01/07/2017 negative. As of 01/08/2017; Accu-Chek 88 and 101. ASSESSMENT AND PLAN: In summary, Mr. Cho is 76 years old elderly male with history of longstanding hypertension, benign prostatic hypertrophy, congestive heart failure, and end-stage renal disease, on hemodialysis. 1. End-stage renal disease, continue hemodialysis 3 times a week, Monday, Monday and Monday. 2. Anemia, H and H is improving gradually, most likely secondary to iron deficiency mild and also end-stage renal disease, continue Procrit 3 times a week. 3. Urinary tract infection. Continue Merrem as per Dr. Gutiérrez for possible colonoscopy in a.m. The patient had colonoscopy and EGD on 10/10/2016. We will check CBC, CMP, phosphorous, and PT and PTT in a.m. Thank you for allowing me to participate in your patient's care. Emir Kirk MD
--- NOTE | 2017-01-09 08:26 | PN ---
FOLLOWUP RENAL CONSULTATION DATE: LOCATION: The patient is located in room 667, bed B. REQUESTED BY: Rigo Comer MD REASON FOR FOLLOWUP: End-stage renal disease, continuation of hemodialysis. SUBJECTIVE: Mr. Cho is 76 years old elderly obese male with a history of hypertension, BPH, CHF, chronic kidney disease, anemia, was admitted from the longterm with worsening renal function, decreased p.o. intake, tremors, tachycardia with bilateral leg swelling and fluid overload and the patient was started on hemodialysis. The patient is feeling much better, not in acute distress, resting comfortably without any oxygen on. Appetite is slowly improving. No chest pain, no palpitation, no fever, no cough, no abdominal pain. PHYSICAL EXAMINATION GENERAL: Mr. Cho is 76 years old elderly, male, well built and well nourished, not in distress. VITAL SIGNS: As follows: Blood pressure of 153/79, pulse 106, respirations 20, temperature 98.1, saturation 96%. Height is 5 feet 7 inches and weight is 175 pounds. HEENT: Pupils are normal and reactive to light and accommodation. Conjunctivae are pink. Sclerae are anicteric. Tongue is moist. Trachea is midline. CVS: [place] at the fifth intercostal space, midclavicular line. S1 and S2 audible. No murmur or gallop. LUNGS: Symmetric on both sides. Bilateral breath sounds present. Occasional basal crackles present. ABDOMEN: Normal in appearance, protuberant, soft, tympanic. No guarding. No rigidity. No hepatosplenomegaly. CO[employer]INATOR OF [employer]IC SERVICES: The patient is alert, awake, and oriented x3. Nonfocal neuro examination. Cranial nerves II through XII grossly intact. Sensory and motor system is within normal limits. EXTREMITIES: No cyanosis. No clubbing. No edema. CURRENT MEDICATIONS: Include as follows: Hydralazine 50 mg p.o. daily, Feosol 325 mg p.o. b.i.d., Flomax 0.4 mg daily, subcutaneous heparin 5000 q. 12 hours and heparin 1700 units 3 times a week with dialysis, Lasix 20 mg p.o. daily, meropenem 500 mg q. 12 hours, subcutaneous heparin, Nephro-Portia 1 tablet daily, Phenergan DM syrup 5 mL t.i.d., Proscar 5 mg daily, Protonix 40 mg b.i.d., Tylenol and allopurinol 100 mg p.o. daily. LABORATORY DATA: Includes as follows as of 01/06/2017, sodium 137, potassium 3.7, chloride 98, CO2 of 27, BUN 20, creatinine 2.7, glucose 108, calcium 8.4, iron 32, TIBC 164, saturation 19%. ASSESSMENT AND PLAN: In summary, Mr. Cho is a 76-year-old elderly obese male with a history of hypertension, benign prostatic hypertrophy, renal failure, anemia, secondary hyperparathyroidism, was admitted with worsening renal function, poor appetite, tremors, shortness of breath, tachycardia and urinary tract infection. He was started on hemodialysis. 1. End-stage renal disease. Continue hemodialysis 3 times a week. The patient underwent dialysis on Monday, and Monday, gentle dialysis, the patient tolerated very well. Awaiting for the medical clearance for discharge for outpatient hemodialysis unit. 2. Hypertension. Blood pressure is stable. Continue his current medication, hydralazine. 3. Anemia. Hemoglobin and hematocrit is improving. Continue Procrit 3 times a week with the dialysis and intravenous iron during dialysis if the patient can tolerate, otherwise we will continue p.o. iron. 4. Urinary tract infection. Continue Merrem as per Dr. Gutiérrez. Thank you for allowing me to participate in your patient's care. Emir Kirk MD
[2017-01-09] MEDS: (Novolog) Insulin Aspart, Recombinant 100 u/ml 10 ml vial SC SCH ×4 (08:35→21:49)
[2017-01-09] MEDS: Multivitamin Vitamin B Complex (Nephro-Vite) Tab PO SCH (09:00)
[2017-01-09] MEDS ORDERED: Paricalcitol 2 mcg/ml Inj IV SCH (09:00)
[2017-01-09] MEDS: Promethazine DM 6.25 mg-15 mg/5 ml Syrup PO SCH ×3 (09:12→18:46)
[2017-01-09] MEDS: Pantoprazole 40 mg EC Tab PO SCH ×2 (09:13→18:44)
--- NOTE | 2017-01-09 09:34 | CP.PCM.PN ---
Subjective - Date & Time of Evaluation Date of Evaluation: 01/09/17 Time of Evaluation: 09:33 - Subjective Subjective: Patient denies having nausea, vomiting, abdominal pain. He had one soft bowel movement this morning. Objective - Vital Signs/Intake and Output Vital Signs (last 24 hours): Temp Pulse Resp BP Pulse Ox 97.7 F 65 20 167/98 H 100 01/09/17 08:40 01/09/17 09:12 01/09/17 08:40 01/09/17 09:13 01/09/17 08:40 Intake and Output: 01/09/17 01/09/17 06:59 18:59 Output Total 1400 Balance -1400 - Medications Medications: Current Medications Acetaminophen (Tylenol 325mg Tab) 650 mg PO Q6 PRN PRN Reason: Headache Last Admin: 01/09/17 04:40 Dose: 650 mg Allopurinol (Zyloprim) 100 mg PO DAILY [facility] Last Admin: 01/09/17 09:13 Dose: 100 mg Epoetin Kyle (Procrit) 10,000 unit IV MWF [facility] Stop: 01/11/17 09:01 Last Admin: 01/06/17 11:35 Dose: 10,000 unit Ferric Sodium Gluconate Complex (Ferrlecit) 125 mg IVPB DAILY [facility] Stop: 01/17/17 10:01 Finasteride (Proscar) 5 mg PO DAILY [facility] Last Admin: 01/09/17 09:13 Dose: 5 mg Furosemide (Lasix) 20 mg PO DAILY [facility] Last Admin: 01/09/17 09:13 Dose: 20 mg Heparin Sodium (Porcine) (Heparin) 5,000 units SC Q12 [facility] Hydralazine HCl (Apresoline) 50 mg PO TID [facility] Meropenem 500 mg/ Sodium (Chloride) 100 mls @ 100 mls/hr IVPB Q12H [facility] Last Admin: 01/08/17 21:45 Dose: 100 mls/hr Insulin Aspart (Novolog) 0 unit SC ACHS [facility] PRN Reason: Protocol Last Admin: 01/09/17 08:35 Dose: Not Given Pantoprazole Sodium (Protonix Ec Tab) 40 mg PO BID [facility] Last Admin: 01/09/17 09:13 Dose: 40 mg Paricalcitol (Zemplar) 2 mcg IV MWF [facility] Promethazine HCl/Dextromethorphan (Phenergan Dm Syrup) 5 ml PO TID [facility] Last Admin: 01/09/17 09:12 Dose: 5 ml Tamsulosin HCl (Flomax) 0.4 mg PO DAILY [facility] Last Admin: 01/09/17 09:13 Dose: 0.4 mg Vitamin B Complex/Vit C/Folic Acid (Nephro-Portia) 1 tab PO DAILY@0800 [facility] Last Admin: 01/09/17 09:00 Dose: 1 tab - Labs Labs: 01/09/17 07:42 01/09/17 07:42 PT 11.8 SECONDS (9.7-12.2) 01/09/17 07:42 INR 1.0 01/09/17 07:42 APTT 31 SECONDS (21-34) 01/09/17 07:42 - Constitutional Appears: No Acute Distress - Head Exam Head Exam: ATRAUMATIC, NORMOCEPHALIC - Eye Exam Eye Exam: EOMI, PERRL - Neck Exam Neck Exam: absent: Lymphadenopathy, Thyromegaly - Respiratory Exam Respiratory Exam: NORMAL BREATHING PATTERN. absent: Rales, Rhonchi, Wheezes - Cardiovascular Exam Cardiovascular Exam: REGULAR RHYTHM, +S1, +S2. absent: Gallop, Rubs, Murmur - GI/Abdominal Exam GI & Abdominal Exam: Soft, Normal Bowel Sounds. absent: Tenderness, Mass, Organomegaly - Rectal Exam Rectal Exam: Deferred - Extremities Exam Extremities Exam: absent: Calf Tenderness, Pedal Edema Assessment and Plan (1) Constipation Assessment & Plan: Patient states that the constipation has improved. CT scan showed gallstones and fecal retention. Colonscopy was performed in September and was normal except for cecal diverticulosis. Will treat symptomatically and observe. Status: Acute
[2017-01-09] MEDS: Ferric Sodium Gluconat Complex 62.5 mg/5 ml Vial IVPB SCH (11:21)
[2017-01-09] MEDS: Epoetin Alfa 10,000 unit/ml Dialysis IV SCH (11:22)
[2017-01-09] MEDS: Meropenem 500 MG in Sodium Chloride 0.9% 100 ML IVPB SCH ×2 (13:37→21:47)
--- NOTE | 2017-01-09 15:12 | CP.PCM.PN ---
Subjective - Date & Time of Evaluation Date of Evaluation: 01/09/17 Time of Evaluation: 15:09 - Subjective Subjective: weak.gi,nephro f/u stephany. Objective - Vital Signs/Intake and Output Vital Signs (last 24 hours): Temp Pulse Resp BP Pulse Ox 97.4 F L 110 H 20 138/89 95 01/09/17 13:36 01/09/17 13:36 01/09/17 13:36 01/09/17 13:36 01/09/17 13:36 Intake and Output: 01/09/17 01/09/17 06:59 18:59 Output Total 1400 Balance -1400 - Medications Medications: Current Medications Acetaminophen (Tylenol 325mg Tab) 650 mg PO Q6 PRN PRN Reason: Headache Last Admin: 01/09/17 12:17 Dose: 650 mg Allopurinol (Zyloprim) 100 mg PO DAILY [facility] Last Admin: 01/09/17 09:13 Dose: 100 mg Epoetin Kyle (Procrit) 10,000 unit IV [facility] Stop: 01/11/17 09:01 Last Admin: 01/09/17 11:22 Dose: 10,000 unit Ferric Sodium Gluconate Complex (Ferrlecit) 125 mg IVPB DAILY [facility] Stop: 01/17/17 10:01 Last Admin: 01/09/17 11:21 Dose: 125 mg Finasteride (Proscar) 5 mg PO DAILY [facility] Last Admin: 01/09/17 09:13 Dose: 5 mg Furosemide (Lasix) 20 mg PO DAILY [facility] Last Admin: 01/09/17 09:13 Dose: 20 mg Heparin Sodium (Porcine) (Heparin) 5,000 units SC Q12 [facility] Heparin Sodium (Porcine) (Heparin) 3,300 units IVP [facility] Stop: 01/18/17 09:01 Last Admin: 01/09/17 13:07 Dose: 3,300 units Hydralazine HCl (Apresoline) 50 mg PO TID [facility] Last Admin: 01/09/17 13:38 Dose: Not Given Meropenem 500 mg/ Sodium (Chloride) 100 mls @ 100 mls/hr IVPB Q12H [facility] Last Admin: 01/09/17 13:37 Dose: 100 mls/hr Insulin Aspart (Novolog) 0 unit SC ACHS [facility] PRN Reason: Protocol Last Admin: 01/09/17 12:36 Dose: Not Given Pantoprazole Sodium (Protonix Ec Tab) 40 mg PO BID [facility] Last Admin: 01/09/17 09:13 Dose: 40 mg Paricalcitol (Zemplar) 2 mcg IV MWF [facility] Last Admin: 01/09/17 11:23 Dose: 2 mcg Promethazine HCl/Dextromethorphan (Phenergan Dm Syrup) 5 ml PO TID [facility] Last Admin: 01/09/17 13:37 Dose: 5 ml Tamsulosin HCl (Flomax) 0.4 mg PO DAILY [facility] Last Admin: 01/09/17 09:13 Dose: 0.4 mg Vitamin B Complex/Vit C/Folic Acid (Nephro-Portia) 1 tab PO DAILY@0800 [facility] Last Admin: 01/09/17 09:00 Dose: 1 tab - Labs Labs: 01/09/17 07:42 01/09/17 07:42 PT 11.8 SECONDS (9.7-12.2) 01/09/17 07:42 INR 1.0 01/09/17 07:42 APTT 31 SECONDS (21-34) 01/09/17 07:42 - Constitutional Appears: No Acute Distress, Chronically Ill - Eye Exam Eye Exam: Normal appearance - Respiratory Exam Respiratory Exam: Clear to Ausculation Bilateral - Cardiovascular Exam Cardiovascular Exam: REGULAR RHYTHM - GI/Abdominal Exam GI & Abdominal Exam: Soft - Extremities Exam Extremities Exam: absent: Pedal Edema - Neurological Exam Neurological Exam: Alert, Oriented x3 Assessment and Plan - Assessment and Plan (Free Text) Assessment: ckd.htn.bp better. needs semi electric bed at home. rx given. pt requires positon changes to alleviate pains.can not change position w/o help. htn,distolic chf,severe oa,ckd,
--- NOTE | 2017-01-09 19:14 | CP.PCM.PN ---
Subjective - Date & Time of Evaluation Date of Evaluation: 01/09/17 Time of Evaluation: 19:14 - Subjective Subjective: pt is seen and examined, follow up consult is dictated #[id number] Objective - Vital Signs/Intake and Output Vital Signs (last 24 hours): Temp Pulse Resp BP Pulse Ox 98.3 F 112 H 20 137/80 95 01/09/17 15:23 01/09/17 15:23 01/09/17 15:23 01/09/17 15:23 01/09/17 15:23 Intake and Output: 01/09/17 01/10/17 18:59 06:59 Intake Total 500 Output Total 600 Balance -100 - Medications Medications: Current Medications Acetaminophen (Tylenol 325mg Tab) 650 mg PO Q6 PRN PRN Reason: Headache Last Admin: 01/09/17 12:17 Dose: 650 mg Allopurinol (Zyloprim) 100 mg PO DAILY [facility] Last Admin: 01/09/17 09:13 Dose: 100 mg Epoetin Kyle (Procrit) 10,000 [place] [facility] [place]: 01/11/17 09:01 Last Admin: 01/09/17 11:22 Dose: 10,000 unit Ferric Sodium Gluconate Complex (Ferrlecit) 125 mg IVPB DAILY [facility] Stop: 01/17/17 10:01 Last Admin: 01/09/17 11:21 Dose: 125 mg Finasteride (Proscar) 5 mg PO DAILY [facility] Last Admin: 01/09/17 09:13 Dose: 5 mg Furosemide (Lasix) 20 mg PO DAILY [facility] Last Admin: 01/09/17 09:13 Dose: 20 mg Heparin Sodium (Porcine) (Heparin) 5,000 units SC Q12 [facility] Heparin Sodium (Porcine) (Heparin) 3,300 units IVP [facility] [place] Stop: 01/18/17 09:01 Last Admin: 01/09/17 13:07 Dose: 3,300 units Hydralazine HCl (Apresoline) 50 mg PO TID [facility] Last Admin: 01/09/17 18:45 Dose: 50 mg Meropenem 500 mg/ Sodium (Chloride) 100 mls @ 100 mls/hr IVPB Q12H [facility] Last Admin: 01/09/17 13:37 Dose: 100 mls/hr Insulin Aspart (Novolog) 0 unit SC ACHS [facility] PRN Reason: Protocol Last Admin: 01/09/17 17:10 Dose: Not Given Pantoprazole Sodium (Protonix Ec Tab) 40 mg PO BID [facility] Last Admin: 01/09/17 18:44 Dose: 40 mg Paricalcitol (Zemplar) 2 mcg IV MWF [facility] Last Admin: 01/09/17 11:23 Dose: 2 mcg Promethazine HCl/Dextromethorphan (Phenergan Dm Syrup) 5 ml PO TID [facility] Last Admin: 01/09/17 18:46 Dose: 5 ml Tamsulosin HCl (Flomax) 0.4 mg PO DAILY [facility] Last Admin: 01/09/17 09:13 Dose: 0.4 mg Vitamin B Complex/Vit C/Folic Acid (Nephro-Portia) 1 tab PO DAILY@0800 [facility] Last Admin: 01/09/17 09:00 Dose: 1 tab - Labs Labs: 01/09/17 07:42 01/09/17 07:42 PT 11.8 SECONDS (9.7-12.2) 01/09/17 07:42 INR 1.0 01/09/17 07:42 APTT 31 SECONDS (21-34) 01/09/17 07:42
--- NOTE | 2017-01-10 00:14 | PN ---
DATE: FOLLOWUP RENAL CONSULTATION LOCATION: The patient is located in room 667, bed B. REQUESTING PHYSICIAN: Rigo Comer MD REASON FOR FOLLOWUP: End-stage renal disease, continuation of hemodialysis. HISTORY OF PRESENT ILLNESS: Mr. Cho is 76 years old elderly, obese male with a history of hypertension, BPH, CHF, renal failure, was admitted with worsening renal function and also shortness of breath and decreased p.o. intake and tremors. The patient was started on hemodialysis. The patient is feeling much better, not in acute distress. Denies any headache, dizziness. Denies any chest pain or palpitations. Denies any fever or cough. No abdominal pain. No nausea, vomiting, or diarrhea. PHYSICAL EXAMINATION: VITAL SIGNS: As follows; blood pressure 137/80, pulse 112, respirations 20, temperature 98.3, saturation 95%, height 5 feet 7 inches, and weight is 180 pounds. GENERAL: Mr. Cho is 76 years old elderly obese male, moderately built and moderately nourished, not in distress. HEENT: Pupils are normal and reactive to light and accommodation. Conjunctivae pink. Sclerae anicteric. Tongue is moist. Trachea is midline. LUNGS: Symmetric on both sides. Bilateral breath sounds present. Clear on auscultation. CARDIOVASCULAR: [place] at the fifth intercostal space, midclavicular line. S1 and S2 audible. No murmur or gallop. ABDOMEN: Normal in appearance, soft, and tympanic. No guarding. No rigidity. No hepatosplenomegaly. CENTRAL NERVOUS SYSTEM: The patient is alert, awake, and oriented x2 to x3. Sensory and motor system is grossly within normal limits. EXTREMITIES: No cyanosis. No clubbing. No edema. CURRENT MEDICATIONS: Include as follows; hydralazine 50 mg p.o. t.i.d, 125 mg daily, Flomax 0.4 mg p.o. daily, heparin 5000 q.12 hours and heparin 3,300 in the Perm-A-Cath in both ports together, Lasix 20 mg p.o. daily, Merrem 500 mg q.12 hours, Nephro-Portia 1 tablet daily, Phenergan DM syrup 500 mL p.o. t.i.d., and Proscar 5 mg p.o. daily, Protonix 40 mg p.o. b.i.d., Tylenol, and Zemplar 2 mcg 3 times a week, and allopurinol 100 mg p.o. daily. LABORATORY DATA: His current laboratory data include as follows; as of 01/09/2017, WBC 5.6, hemoglobin 9.2, hematocrit is 28.1, and platelets 350. PT 11.8, PTT 31. Sodium 135, potassium 4.3, chloride 97, CO2 of 27, BUN 26, creatinine 3.1, glucose is 66, calcium 8.4, phosphorous 3.4. His Accu-Chek is 79, 96, 130, and 98. ASSESSMENT AND PLAN: In summary, Mr. Cho is 76 years old elderly male with history of longstanding hypertension, benign prostatic hypertrophy, anemia, congestive heart failure, and renal failure with urinary tract infection, started on hemodialysis last week. 1. End-stage renal disease, continue hemodialysis 3 times a week, Monday, Monday and Monday. 2. Anemia secondary to renal failure and iron deficiency. Continue appropriate 3 times a week with dialysis. 3. Hypertension, blood pressure is stable. Continue hydralazine. 4. Urinary tract infection. Continue Merrem as per Dr. Gutiérrez. Repeat urinalysis in a.m. We will schedule for a short treatment for dialysis tomorrow for possible after dialysis tomorrow as per the licensed clinical social worker and pillowcase turner this afternoon. Discussed with the patient's at bedside. Emir Kirk MD
[2017-01-10] MEDS: (Novolog) Insulin Aspart, Recombinant 100 u/ml 10 ml vial SC SCH ×3 (08:30→16:41)
[2017-01-10 08:56] VITALS: O2SAT 95
[2017-01-10] MEDS: Multivitamin Vitamin B Complex (Nephro-Vite) Tab PO SCH (09:00)
[2017-01-10] MEDS: Meropenem 500 MG in Sodium Chloride 0.9% 100 ML IVPB SCH (09:01)
[2017-01-10] MEDS: Pantoprazole 40 mg EC Tab PO SCH ×2 (09:36→18:51)
[2017-01-10] MEDS: Promethazine DM 6.25 mg-15 mg/5 ml Syrup PO SCH ×3 (09:37→18:50)
--- NOTE | 2017-01-10 10:33 | CP.PCM.PN ---
Subjective - Date & Time of Evaluation Date of Evaluation: 01/10/17 Time of Evaluation: 10:31 - Subjective Subjective: Patient has no new complaints. He denies having nausea, vomiting, abdominal pain. He has not had a bowel movement so far today. Objective - Vital Signs/Intake and Output Vital Signs (last 24 hours): Temp Pulse Resp BP Pulse Ox 98.0 F 108 H 20 158/96 H 95 01/10/17 07:20 01/10/17 09:35 01/10/17 07:20 01/10/17 09:36 01/10/17 07:20 Intake and Output: 01/10/17 01/10/17 06:59 18:59 Intake Total 850 Output Total 1000 Balance -150 - Medications Medications: Current Medications Acetaminophen (Tylenol 325mg Tab) 650 mg PO Q6 PRN PRN Reason: Headache Last Admin: 01/10/17 00:38 Dose: 650 mg Allopurinol (Zyloprim) 100 mg PO DAILY [facility] Last Admin: 01/10/17 09:36 Dose: 100 mg Epoetin Kyle (Procrit) 10,000 [place] [facility] [place]: 01/11/17 09:01 Last Admin: 01/09/17 11:22 Dose: 10,000 unit Ferric Sodium Gluconate Complex (Ferrlecit) 125 mg IVPB DAILY [facility] Stop: 01/17/17 10:01 Last Admin: 01/09/17 11:21 Dose: 125 mg Finasteride (Proscar) 5 mg PO DAILY [facility] Last Admin: 01/10/17 09:36 Dose: 5 mg Furosemide (Lasix) 20 mg PO DAILY [facility] Last Admin: 01/10/17 09:36 Dose: 20 mg Heparin Sodium (Porcine) (Heparin) 5,000 units SC Q12 [facility] Heparin Sodium (Porcine) (Heparin) 3,300 units IVP MWF [facility] Stop: 01/18/17 09:01 Last Admin: 01/09/17 13:07 Dose: 3,300 units Hydralazine HCl (Apresoline) 50 mg PO TID [facility] Last Admin: 01/09/17 18:45 Dose: 50 mg Meropenem 500 mg/ Sodium (Chloride) 100 mls @ 100 mls/hr IVPB Q12H [facility] Last Admin: 01/10/17 09:01 Dose: 100 mls/hr Insulin Aspart (Novolog) 0 unit SC ACHS [facility] PRN Reason: Protocol Last Admin: 01/10/17 08:30 Dose: Not Given Pantoprazole Sodium (Protonix Ec Tab) 40 mg PO BID [facility] Last Admin: 01/10/17 09:36 Dose: 40 mg Paricalcitol (Zemplar) 2 mcg IV MWF [facility] Last Admin: 01/09/17 11:23 Dose: 2 mcg Promethazine HCl/Dextromethorphan (Phenergan Dm Syrup) 5 ml PO TID [facility] Last Admin: 01/10/17 09:37 Dose: 5 ml Tamsulosin HCl (Flomax) 0.4 mg PO DAILY [facility] Last Admin: 01/10/17 09:36 Dose: 0.4 mg Vitamin B Complex/Vit C/Folic Acid (Nephro-Portia) 1 tab PO DAILY@0800 [facility] Last Admin: 01/10/17 09:00 Dose: 1 tab - Labs Labs: 01/09/17 07:42 01/09/17 07:42 PT 11.8 SECONDS (9.7-12.2) 01/09/17 07:42 INR 1.0 01/09/17 07:42 APTT 31 SECONDS (21-34) 01/09/17 07:42 - Constitutional Appears: No Acute Distress - Head Exam Head Exam: ATRAUMATIC, NORMOCEPHALIC - Eye Exam Eye Exam: EOMI, PERRL - Neck Exam Neck Exam: absent: Lymphadenopathy, Thyromegaly - Respiratory Exam Respiratory Exam: NORMAL BREATHING PATTERN. absent: Rales, Rhonchi, Wheezes - Cardiovascular Exam Cardiovascular Exam: REGULAR RHYTHM, +S1, +S2. absent: Gallop, Rubs, Murmur - GI/Abdominal Exam GI & Abdominal Exam: Soft, Normal Bowel Sounds. absent: Tenderness, Mass, Organomegaly - Rectal Exam Rectal Exam: Deferred - Extremities Exam Extremities Exam: absent: Calf Tenderness, Pedal Edema Assessment and Plan (1) Constipation Assessment & Plan: Patient feels well. Will continue present regimen. Recommend office follow up. Status: Acute
--- NOTE | 2017-01-10 11:24 | CP.PCM.PN ---
Subjective - Date & Time of Evaluation Date of Evaluation: 01/10/17 Time of Evaluation: 11:23 - Subjective Subjective: pt is seen and examined, follow up consult is dictated #[id number] s/p hd yesterday for extra hd today, possible d/c today to [facility] Objective - Vital Signs/Intake and Output Vital Signs (last 24 hours): Temp Pulse Resp BP Pulse Ox 98.0 F 108 H 20 158/96 H 95 01/10/17 07:20 01/10/17 09:35 01/10/17 07:20 01/10/17 09:36 01/10/17 07:20 Intake and Output: 01/10/17 01/10/17 06:59 18:59 Intake Total 850 Output Total 1000 Balance -150 - Medications Medications: Current Medications Acetaminophen (Tylenol 325mg Tab) 650 mg PO Q6 PRN PRN Reason: Headache Last Admin: 01/10/17 00:38 Dose: 650 mg Allopurinol (Zyloprim) 100 mg PO DAILY [facility] Last Admin: 01/10/17 09:36 Dose: 100 mg Epoetin Kyle (Procrit) 10,000 unit IV [facility] [place] Stop: 01/11/17 09:01 Last Admin: 01/09/17 11:22 Dose: 10,000 unit Ferric Sodium Gluconate Complex (Ferrlecit) 125 mg IVPB DAILY [facility] Stop: 01/17/17 10:01 Last Admin: 01/09/17 11:21 Dose: 125 mg Finasteride (Proscar) 5 mg PO DAILY [facility] Last Admin: 01/10/17 09:36 Dose: 5 mg Furosemide (Lasix) 20 mg PO DAILY [facility] Last Admin: 01/10/17 09:36 Dose: 20 mg Heparin Sodium (Porcine) (Heparin) 5,000 units SC Q12 [facility] Heparin Sodium (Porcine) (Heparin) 3,300 units IVP MWF [facility] Stop: 01/18/17 09:01 Last Admin: 01/09/17 13:07 Dose: 3,300 units Hydralazine HCl (Apresoline) 50 mg PO TID [facility] Last Admin: 01/09/17 18:45 Dose: 50 mg Meropenem 500 mg/ Sodium (Chloride) 100 mls @ 100 mls/hr IVPB Q12H [facility] Last Admin: 01/10/17 09:01 Dose: 100 mls/hr Insulin Aspart (Novolog) 0 unit SC ACHS [facility] PRN Reason: Protocol Last Admin: 01/10/17 08:30 Dose: Not Given Pantoprazole Sodium (Protonix Ec Tab) 40 mg PO BID [facility] Last Admin: 01/10/17 09:36 Dose: 40 mg Paricalcitol (Zemplar) 2 mcg IV MWF [facility] Last Admin: 01/09/17 11:23 Dose: 2 mcg Promethazine HCl/Dextromethorphan (Phenergan Dm Syrup) 5 ml PO TID [facility] Last Admin: 01/10/17 09:37 Dose: 5 ml Tamsulosin HCl (Flomax) 0.4 mg PO DAILY [facility] Last Admin: 01/10/17 09:36 Dose: 0.4 mg Vitamin B Complex/Vit C/Folic Acid (Nephro-Portia) 1 tab PO DAILY@0800 [facility] Last Admin: 01/10/17 09:00 Dose: 1 tab - Labs Labs: 01/09/17 07:42 01/09/17 07:42 PT 11.8 SECONDS (9.7-12.2) 01/09/17 07:42 INR 1.0 01/09/17 07:42 APTT 31 SECONDS (21-34) 01/09/17 07:42
[2017-01-10] MEDS: Ferric Sodium Gluconat Complex 62.5 mg/5 ml Vial IVPB SCH (12:51)
[2017-01-10 16:25] VITALS: TEMP 97.7
[2017-01-10 19:00] VITALS: RESP 20
[2017-01-10 19:46] VITALS: BP 144/71; PULSE 100
--- NOTE | 2017-01-11 02:24 | DS ---
HISTORY OF PRESENT ILLNESS: This is a 76-year-old gentleman who was brought in with the history of worsening of the renal failure. He has a chronic kidney disease, which got worse. He was edematous and anemic. The patient was admitted followed by Dr. Kirk, the facilities and grounds director. Eventually, he had a shunt placed in and he is getting dialysis. He will be transferred to [facility] for further dialysis for few days and then home. Prescription for hospital bed has been given. PHYSICAL EXAMINATION: GENERAL: Currently, he is comfortable. VITAL SIGNS: Stable. The patient's heart rate remains in 90 to 100. Repeat echocardiogram had showed normal LV systolic function, normal chamber size, and no significant valvular heart disease. He is on Procrit. The patient was also seen by pulmonary consult done Dr. Melo, infectious consult done Dr. Gutiérrez, and physical therapy has been started. Care of plan was explained to the patient's family and the patient on several occasions. The patient will be followed by Dr. Kirk place. FINAL DIAGNOSES: Acute renal failure, hypertension, and borderline diabetes. He will be followed by Dr. Kirk. I will follow up on discharge. Rigo Comer MD
--- NOTE | 2017-01-11 09:23 | PN ---
FOLLOWUP RENAL CONSULTATION DATE: LOCATION: The patient is located in room 667, bed B. REQUESTED BY: Rigo Comer MD REASON FOR FOLLOWUP: End-stage renal disease, continuation of hemodialysis. SUBJECTIVE: Mr. Cho is 76 years old elderly obese male with a history of hypertension, BPH, CHF, renal failure, anemia, was admitted with worsening renal function, shortness of breath and poor p.o. intake and edema of the legs and tremors. The patient was started on hemodialysis. The patient is feeling much better, not in acute distress. Denies any nausea, vomiting or diarrhea. Denies any abdominal pain. Denies any chest pain or palpitation. The patient does complain of weakness, generalized. PHYSICAL EXAMINATION GENERAL: Mr. Cho is 76 years old elderly obese male. The patient is out of bed to chair, not in distress. VITAL SIGNS: Blood pressure 158/96, pulse 98, respirations about 20, temperature is 98, and saturation 95% on room air. HEENT: Pupils are normal and reactive to light and accommodation. Conjunctivae are pink. Sclerae are anicteric. Tongue is moist. Trachea is midline. CVS: [place] at the fifth intercostal space, midclavicular line. S1 and S2 audible. No murmur or gallop. LUNGS: Symmetric on both sides. Bilateral breath sounds present. Clear on auscultation. ABDOMEN: Normal in appearance, soft, tympanic. No guarding. No rigidity. No hepatosplenomegaly. PEARL GLUE OPERATOR: The patient is alert, awake, and oriented x3. Nonfocal neuro examination. Cranial nerves II through XII grossly intact. Sensory and motor system is within normal limits. EXTREMITIES: No cyanosis, no clubbing, no edema of the legs. LABORATORY DATA: No new labs are available. Accu-Cheks 76 and 101. CURRENT MEDICATIONS: Include hydralazine 50 mg p.o. t.i.d., Ferrlecit 125 mg daily, Flomax 0.4 mg daily, heparin 3300 units in PermCath, Lasix 20 mg p.o. daily, Nephro-Portia one tablet daily, Phenergan with DM 5 mL t.i.d. p.r.n., Procrit 10,000 units 3 times a week, Proscar 5 mg daily, Protonix 40 mg p.o. b.i.d., Tylenol and Zemplar 2 mcg 3 times a week, and allopurinol 100 mg p.o. daily. ASSESSMENT AND PLAN: In summary, Mr. Cho is 76 years old elderly male with hypertension, benign prostatic hypertrophy, anemia, renal failure, congestive heart failure, was admitted with worsening renal function, being treated for urinary tract infection and also started on hemodialysis for the worsening renal function and end-stage renal disease. 1. End-stage renal disease, continue hemodialysis three times a week. The patient was given extra hemodialysis today to keep his possible outpatient hemodialysis schedule Monday, and Monday for possible discharge to detention today as per the shoe parts caser. 2. Hypertension, blood pressure is stable. Continue hydralazine as per Dr. Rigo Comer. 3. Anemia secondary to renal failure, end-stage renal disease. Continue Ferrlecit and also continue Procrit during dialysis three times a week. 4. Debility. Continue physical therapy at bedside. The patient is stable from the renal standpoint for possible discharge to the subacute rehabilitation for continuation of the physical therapy. Thank you for allowing me to participate in your patient's care and the patient underwent hemodialysis today and had ultrafiltration about 300 mL only as the patient also received hemodialysis yesterday. Emir Kirk MD
== END 2017-01-10 21:56 | DRG 291 ==
LOC: C.ER 17:35 → C.6T 20:43
PROVIDERS: ADMIT Internal Medicine Cardiovascular Disease; ATTEND Internal Medicine Cardiovascular Disease
PROC: 05H533Z Insertion of Infusion Device into Right Subclavian Vein, Percutaneous Approach (ICD-10-PCS; principal; 2017-01-04 08:00)
PROC: 5A1D60Z (ICD-10-PCS; 2017-01-05)
DX: I13.2 Hypertensive heart and chronic kidney disease with heart failure and with stage 5 chronic kidney disease, or end stage renal disease (principal); N18.6 End stage renal disease; N17.9 Acute kidney failure, unspecified; E13.22 Other specified diabetes mellitus with diabetic chronic kidney disease; N39.0 Urinary tract infection, site not specified; E87.1 Hypo-osmolality and hyponatremia; N12 Tubulo-interstitial nephritis, not specified as acute or chronic; N13.8 Other obstructive and reflux uropathy; I50.30 Unspecified diastolic (congestive) heart failure; E78.00 Pure hypercholesterolemia, unspecified; M25.551 Pain in right hip; M25.552 Pain in left hip; N40.1 Benign prostatic hyperplasia with lower urinary tract symptoms; B96.1 Klebsiella pneumoniae [K. pneumoniae] as the cause of diseases classified elsewhere; E66.9 Obesity, unspecified; Z68.29 Body mass index [BMI] 29.0-29.9, adult; E87.5 Hyperkalemia; R41.0 Disorientation, unspecified; Z99.2 Dependence on renal dialysis; D63.1 Anemia in chronic kidney disease; K59.00 Constipation, unspecified

== ENCOUNTER 2017-03-11 15:14 | Inpatient (IN) | payer MEDICARE ==
[2017-03-11 15:14] VITALS: BMI 34.2
--- NOTE | 2017-03-11 16:59 | C.PDOC ---
History Of Present Illness 76 yr old male presents to the ER for evaluation of new onset of diarrhea for the past 3-4 days. Patient reports of loose bowel movements. Patient is s/p admission 12/2016 and is on Meropenem. Patient denies fever, chills, nausea, vomiting, abdominal pain, bright red blood per rectum, dysuria, incontinence, weakness or numbness. NEW ONSET DIARRHEA X 3-4 DAYS. LOOSE BM. NO ABD PAIN, BLOATING, BRB, NV, FEVER. S/P ADMISSION 12/2016, +MEROPENEM EXAM NAD ABD NEG REMAINDER NEG Time Seen by Provider: 03/11/17 16:27 Chief Complaint (Nursing): Abdominal Pain History Per: Patient History/Exam Limitations: no limitations Onset/Duration Of Symptoms: Days (3-4 days) Current Symptoms Are (Timing): Still Present Past Medical History Reviewed: Historical Data, Nursing Documentation, Vital Signs Vital Signs: Last Vital Signs Temp 97.8 F 03/11/17 15:36 Pulse 94 H 03/11/17 15:36 Resp 18 03/11/17 15:36 BP 121/77 03/11/17 15:36 Pulse Ox 96 03/11/17 17:04 - Medical History PMH: Anemia, Gastritis, HTN, Hypercholesterolemia, Hyperlipidemia, End Stage Renal Disease, Chronic Kidney Disease Surgical History: Appendectomy - [facility] Procedures EXCISION OF DUODENUM, ENDO, DIAGN (10/03/16) EXCISION OF ESOPHAGUS, ENDO, DIAGN (10/03/16) EXCISION OF STOMACH, ENDO, DIAGN (10/03/16) EXCISION OF TOE NAIL, EXTERNAL APPROACH (07/15/16) INSERTION OF INFUSION DEV INTO R SUBCLAV VEIN, PERC APPROACH (12/29/16) INSPECTION OF LOWER INTESTINAL TRACT, ENDO (10/03/16) PERFORMANCE OF URINARY FILTRATION, MULTIPLE (12/29/16) TRANSFUSE NONAUT RED BLOOD CELLS IN PERIPH VEIN, PERC (10/03/16) Family History: States: No Known Family Hx - Social History Hx Alcohol Use: No Hx Substance Use: No - Immunization History Hx Tetanus Toxoid Vaccination: Yes Hx Influenza Vaccination: No Hx Pneumococcal Vaccination: Yes Review Of Systems Except As Marked, All Systems Reviewed And Found Negative. Constitutional: Negative for: Fever, Chills Gastrointestinal: Positive for: Diarrhea. Negative for: Nausea, Vomiting, Abdominal Pain Genitourinary: Negative for: Dysuria, Incontinence Neurological: Negative for: Weakness, Numbness Physical Exam - Physical Exam Appears: Non-toxic, No Acute Distress Skin: Warm, Dry, No Rash Head: Atraumatic, Normacephalic Oral Mucosa: Moist Respiratory: Normal Breath Sounds, No Rales, No Rhonchi, No Stridor, No Wheezing Gastrointestinal/Abdominal: Normal Exam, Soft, No Tenderness, No Guarding, No Rebound Extremity: Normal ROM, No Swelling Neurological/Psych: Oriented x3, Normal Speech, Normal Motor, Normal Sensation ED Course And Treatment - Laboratory Results Result Diagrams: 03/11/17 17:07 03/11/17 17:07 O2 Sat by Pulse Oximetry: 96 (RA) Pulse Ox Interpretation: Normal Progress - Re-Evaluation Re-evaluation Note: 03/11/17 17:38 ELEVATED WBC AND BUN/CREAT COMPARED TO PRIOR. D/W DR Alexus TAPIA AWARE OF ER FINDINGS. WILL CONSULT, ADMIT DR JOE D/W DR JOE WILL ADMIT - Data Reviewed Data Reviewed: Lab, Diagnostic imaging, Old records Medical Decision Making Medical Decision Making: PLAN: * CBC * CMP * C Diff Toxins Disposition Counseled Patient/Family Regarding: Studies Performed, Diagnosis - Disposition Disposition: HOSPITALIZED Disposition Time: 17:41 Condition: STABLE Forms: [facility] (Kinyarwanda) - POA Present On Arrival: None - Clinical Impression Clinical Impression: Diarrhea, Hyponatremia, Acute on chronic renal failure - Scribe Statement The provider has reviewed the documentation as recorded by the Alissaibe Henny Adams Provider Attestation: All medical record entries made by the Scribe were at my direction and personally dictated by me. I have reviewed the chart and agree that the record accurately reflects my personal performance of the history, physical exam, medical decision making, and the department course for this patient. I have also personally directed, reviewed, and agree with the discharge instructions and disposition. Decision To Admit - Pt Status Changed To: Hospital Disposition Of: Observation - . Bed Request Type: Regular Admitting Physician: Yeison Joe Patient Diagnosis: Diarrhea, Hyponatremia, Acute on chronic renal failure
[2017-03-11 17:12] LABS: BASO % 0.2 % (0.0-2.0); EOS # 0.1 K/uL (0.0-0.7); EOS % 0.5 % (0.0-4.0); HEMATOCRIT 34.3 % (35.0-51.0); LYMPH # 1.5 K/uL (1.0-4.3); LYMPH % 8.7 % (20.0-40.0); MEAN CELL VOLUME 90.3 fL (80.0-94.0); MEAN CORPUSCULAR HEMOGLOBIN 29.1 pg (27.0-31.0); MEAN CORPUSCULAR HGB CONC 32.2 g/dL (33.0-37.0); MONO # 1.3 K/uL (0.0-0.8); MONO % 7.1 % (0.0-10.0); PLATELET COUNT 376 K/uL (130-400); RED CELL DISTRIBUTION WIDTH 18.8 % (11.5-14.5); WHITE BLOOD COUNT 17.8 K/uL (4.8-10.8)
[2017-03-11 17:23] LABS: CALCIUM 8.1 mg/dl (8.6-10.4); POTASSIUM 3.9 mmol/L (3.6-5.2)
[2017-03-11 17:52] LABS: NEUTROPHIL 88 % (50-75); TOTAL CELLS COUNTED 100
[2017-03-11 17:54] LABS: LARGE PLATELETS PRESENT
[2017-03-11] MEDS ORDERED: Aluminum Hydroxide/Magnesium Hydroxide Susp (30 mL) PO PRN (20:18)
[2017-03-11] MEDS ORDERED: metroNIDAZOLE IV 500 mg/100 ml 250 MG in Premixed IV 1 EA IVPB SCH (23:00)
[2017-03-11] MEDS ORDERED: metroNIDAZOLE IV 500 mg/100 ml 500 MG/100 ML BAG ONE (23:15)
[2017-03-11] MEDS: metroNIDAZOLE IV 500 mg/100 ml 500 MG/100 ML BAG IVPB SCH (23:20)
[2017-03-12] MEDS ORDERED: Bismuth Subsalicylate 262 mg Chew Tab PO SCH
--- NOTE | 2017-03-12 00:53 | CP.PCM.HP ---
History of Present Illness - History of Present Illness History of Present Illness: 76 yo male with h/o diverticulosis/diverticulitis s/p admission 12/2016. presents to the ER for evaluation of new onset of diarrhea for the past 3-4 days. Patient reports of loose bowel movements. Patient is s/p admission 12/2016 and is on Meropenem. Patient denies fever, chills, nausea, vomiting, abdominal pain, bright red blood per rectum, dysuria, incontinence, weakness or numbness. Has been having increasing bowel frequency and diarrhea for the past four days. Recently seen in Dr Vargas office c/o incontinence of urine and feces. Has been taking Meropenum as outpatient. No bleeding or melena. Had two episodes of bilious vomiting. CT Scan ordered but not yet done. No fever or chills at home. Elevated WHITE count noted. Stool studies ordered by Dr Truong but patient doesnt think his has taken care of them yet. LLQ pain as well. Started on emperic antibiotics by admitting team. NEW ONSET DIARRHEA X 3-4 DAYS. LOOSE BM. NO ABD PAIN, BLOATING, BRB, NV, FEVER. S/P ADMISSION 12/2016, +MEROPENEM EXAM NAD ABD NEG REMAINDER NEG Present on Admission - Present on Admission Any Indicators Present on Admission: Yes Past Patient History - Infectious Disease Hx of Infectious Diseases: None - Past Medical History & Family History Past Medical History?: Yes - Past Social History Smoking Status: Former Smoker - CARDIAC Hx Hypercholesterolemia: Yes Hx Hypertension: Yes - PULMONARY Hx Respiratory Disorders: No Other/Comment: former smoker, SOB with exertion - NEUROLOGICAL Hx Neurological Disorder: No - HEENT Hx HEENT Problems: No - RENAL Hx Chronic Kidney Disease: Yes - ENDOCRINE/METABOLIC Hx Endocrine Disorders: Yes Hx Diabetes Mellitus Type 2: Yes - HEMATOLOGICAL/ONCOLOGICAL Hx Anemia: Yes - INTEGUMENTARY Hx Dermatological Problems: No - MUSCULOSKELETAL/RHEUMATOLOGICAL Hx Musculoskeletal Disorders: Yes Hx Falls: Yes Other/Comment: BLE weakness - GASTROINTESTINAL Hx Gastritis: Yes - GENITOURINARY/GYNECOLOGICAL Hx Genitourinary Disorders: Yes Other/Comment: BPH - PSYCHIATRIC Hx Substance Use: No - SURGICAL HISTORY Hx Appendectomy: Yes - ANESTHESIA Hx Anesthesia: Yes Meds Allergies/Adverse Reactions: Allergies Allergy/AdvReac Type Severity Reaction Status Date / Time calcium carbonate [From Tums] Allergy Verified 03/11/17 16:34 dates Allergy Uncoded 03/11/17 16:34 Physical Exam - Constitutional Appears: No Acute Distress, Chronically Ill - Head Exam Head Exam: ATRAUMATIC, NORMAL INSPECTION, NORMOCEPHALIC - Eye Exam Eye Exam: EOMI, Normal appearance, PERRL Pupil Exam: NORMAL ACCOMODATION, PERRL - Respiratory Exam Respiratory Exam: Decreased Breath Sounds, Rales, Rhonchi - Cardiovascular Exam Cardiovascular Exam: REGULAR RHYTHM - GI/Abdominal Exam GI & Abdominal Exam: Normal Bowel Sounds, Soft. absent: Tenderness Results - Vital Signs Recent Vital Signs: Last Vital Signs Temp 98.9 F 03/11/17 22:32 Pulse 106 H 03/11/17 22:32 Resp 18 03/11/17 22:32 BP 151/74 H 03/11/17 22:32 Pulse Ox 96 03/11/17 22:32 - Labs Result Diagrams: 03/24/17 15:07 03/24/17 15:07 Labs: Laboratory Results - last 24 hr 03/11/17 03/11/17 17:07 17:07 WBC 17.8 H D RBC 3.80 L Hgb 11.1 L Hct 34.3 L MCV 90.3 D MCH 29.1 MCHC 32.2 L RDW 18.8 H Plt Count 376 MPV 7.0 L Neut % (Auto) 83.5 H Lymph % (Auto) 8.7 L Thomas % (Auto) 7.1 Eos % (Auto) 0.5 Baso % (Auto) 0.2 Neut # 14.9 H Lymph # 1.5 Thomas # 1.3 H Eos # 0.1 Baso # 0.0 Neutrophils % (Manual) 88 H Lymphocytes % (Manual) 8 L Monocytes % (Manual) 4 Platelet Estimate Normal Large Platelets Present Polychromasia Slight Hypochromasia (manual) Slight Anisocytosis (manual) Slight Microcytosis (manual) Slight Macrocytosis (manual) Slight Sodium 126 L Potassium 3.9 Chloride 88 L Carbon Dioxide 29 Anion Gap 13 BUN 31 H Creatinine 5.5 H Est GFR ( Amer) 12 Est GFR (Non-Af Amer) 10 Random Glucose 96 Calcium 8.1 L Assessment & Plan (1) Diarrhea Status: Acute (2) HTN (hypertension) Status: Acute (3) Hyponatremia Status: Acute (4) Confusion and disorientation Status: Acute (5) UTI (urinary tract infection) Status: Acute
[2017-03-12] MEDS: metroNIDAZOLE IV 500 mg/100 ml 500 MG/100 ML BAG IVPB SCH ×3 (05:46→21:09)
[2017-03-12 08:16] LABS: BASO # 0.1 K/uL (0.0-0.2); BASO % 0.3 % (0.0-2.0); EOS # 0.1 K/uL (0.0-0.7); EOS % 0.4 % (0.0-4.0); HEMATOCRIT 31.5 % (35.0-51.0); LYMPH # 1.1 K/uL (1.0-4.3); LYMPH % 6.5 % (20.0-40.0); MEAN CORPUSCULAR HEMOGLOBIN 29.6 pg (27.0-31.0); MEAN CORPUSCULAR HGB CONC 32.9 g/dL (33.0-37.0); MONO # 1.2 K/uL (0.0-0.8); MONO % 7.2 % (0.0-10.0); NRBC % 0.1 % (0.0-2.0); PLATELET COUNT 359 K/uL (130-400); RED CELL DISTRIBUTION WIDTH 18.5 % (11.5-14.5); WHITE BLOOD COUNT 16.3 K/uL (4.8-10.8)
[2017-03-12] MEDS: Sodium Chloride 0.9% 1,000 ML IV SCH (08:28)
[2017-03-12 08:40] LABS: BILIRUBIN,TOTAL 0.8 mg/dL (0.2-1.3); CALCIUM 7.8 mg/dl (8.6-10.4); TOTAL PROTEIN 5.7 g/dL (6.3-8.3)
[2017-03-12] MEDS: Multiple Vitamins Tab PO SCH (09:37)
[2017-03-12 09:46] LABS: NEUTROPHIL 87 % (50-75); TOTAL CELLS COUNTED 100
[2017-03-12] MEDS ORDERED: Saccharomyces Boulardi 250 mg Cap PO SCH (10:00)
[2017-03-12] MEDS ORDERED: Home Med 1 UNIT (Esomeprazole Magnesium [Nexium] 40 MG) PO SCH (10:00)
--- NOTE | 2017-03-12 13:32 | CP.PCM.CON ---
History of Present Illness - History of Present Illness History of Present Illness: COVERING DR MYERS 76 yo male with h/o diverticulosis/diverticulitis s/p admission 12/2016. Has been having increasing bowel frequency and diarrhea for the past four days. Recently seen in Dr Vargas office c/o incontinence of urine and feces. Has been taking Meropenum as outpatient. No bleeding or melena. Had two episodes of bilious vomiting. CT Scan ordered but not yet done. No fever or chills at home. Elevated WHITE count noted. Stool studies ordered by Dr Myers but patient doesnt think his has taken care of them yet. LLQ pain as well. Started on emperic antibiotics by admitting team. Review of Systems - Cardiovascular Cardiovascular: absent: Chest Pain, Dyspnea - Respiratory Respiratory: absent: Cough, Dyspnea, Chest Congestion - Gastrointestinal Gastrointestinal: As Per HPI Past Patient History - Infectious Disease Hx of Infectious Diseases: None - Past Medical History & Family History Past Medical History?: Yes - Past Social History Smoking Status: Never Smoked Alcohol: None Drugs: Denies - CARDIAC Hx Hypercholesterolemia: Yes Hx Hypertension: Yes - PULMONARY Hx Respiratory Disorders: No Other/Comment: former smoker, SOB with exertion - NEUROLOGICAL Hx Neurological Disorder: No - HEENT Hx HEENT Problems: No - RENAL Hx Chronic Kidney Disease: Yes Date of Last Dialysis Treatment: 02/15/17 - ENDOCRINE/METABOLIC Hx Endocrine Disorders: Yes Hx Diabetes Mellitus Type 2: Yes - HEMATOLOGICAL/ONCOLOGICAL Hx Anemia: Yes Hx Cirrhosis: No Hx Hepatitis A: No Hx Hepatitis B: No Hx Hepatitis C: No Hx Human Immunodeficiency Virus (HIV): No - INTEGUMENTARY Hx Dermatological Problems: No - MUSCULOSKELETAL/RHEUMATOLOGICAL Hx Musculoskeletal Disorders: Yes Hx Falls: Yes Other/Comment: BLE weakness - GASTROINTESTINAL Hx Diverticulitis: Yes (Diverticulosis by colonoscopy 10/2016) Hx Gastritis: Yes - GENITOURINARY/GYNECOLOGICAL Hx Genitourinary Disorders: Yes Other/Comment: BPH - PSYCHIATRIC Hx Substance Use: No - SURGICAL HISTORY Hx Appendectomy: Yes - ANESTHESIA Hx Anesthesia: Yes Hx Anesthesia Reactions: No Meds Allergies/Adverse Reactions: Allergies Allergy/AdvReac Type Severity Reaction Status Date / Time calcium carbonate [From Tums] Allergy Verified 03/11/17 16:34 dates Allergy Uncoded 03/11/17 16:34 - Medications Medications: Current Medications Acetaminophen (Tylenol 325mg Tab) 2 mg PO Q4H PRN PRN Reason: Temperature Al Hydrox/Mg Hydrox/Simethicone (Maalox 30 Ml) 30 ml PO Q4H PRN PRN Reason: Heartburn Allopurinol (Zyloprim) 100 mg PO DAILY [facility] Last Admin: 03/12/17 09:37 Dose: 100 mg Bismuth Subsalicylate (Pepto Bismol) 15 mg PO Q4 [facility] Enalapril Maleate (Vasotec) 10 mg PO DAILY [facility] Last Admin: 03/12/17 09:36 Dose: 10 mg Ferrous Sulfate (Feosol) 325 mg PO BID [facility] Last Admin: 03/12/17 09:37 Dose: 325 mg Finasteride (Proscar) 5 mg PO DAILY [facility] Last Admin: 03/12/17 09:37 Dose: 5 mg Furosemide (Lasix) 20 mg PO DAILY [facility] Last Admin: 03/12/17 09:36 Dose: 20 mg Gemfibrozil (Lopid) 600 mg PO HS [facility] Last Admin: 03/11/17 22:45 Dose: 600 mg Heparin Sodium (Porcine) (Heparin) 5,000 units SC Q8 [facility] Last Admin: 03/12/17 13:02 Dose: Not Given Hydralazine HCl (Apresoline) 25 mg PO BID [facility] Last Admin: 03/12/17 09:37 Dose: 25 mg Sodium Chloride (Sodium Chloride 0.9%) 1,000 mls @ 60 mls/hr IV .[id number] [facility] Last Admin: 03/12/17 08:28 Dose: Not Given Metronidazole (Flagyl) 500 mg in 100 mls @ 100 mls/hr IVPB Q8 [facility] Last Admin: 03/12/17 13:02 Dose: 100 mls/hr Ceftriaxone Sodium 1 gm/ (Sodium Chloride) 100 mls @ 100 mls/hr IVPB DAILY [facility] Last Admin: 03/12/17 13:03 Dose: 100 mls/hr Multivitamins (Hexavitamin) 1 tab PO DAILY [facility] Last Admin: 03/12/17 09:37 Dose: 1 tab Pantoprazole Sodium (Protonix Ec Tab) 40 mg PO DAILY [facility] Saccharomyces Boulardii (Florastor) 1 mg PO BID [facility] Last Admin: 03/12/17 09:35 Dose: 1 mg Tamsulosin HCl (Flomax) 0.4 mg PO DAILY [facility] Last Admin: 03/12/17 09:37 Dose: 0.4 mg Physical Exam - Constitutional Appears: Chronically Ill - Head Exam Head Exam: ATRAUMATIC, NORMOCEPHALIC - Eye Exam Eye Exam: EOMI, PERRL - Respiratory Exam Respiratory Exam: NORMAL BREATHING PATTERN - Cardiovascular Exam Cardiovascular Exam: REGULAR RHYTHM - GI/Abdominal Exam GI & Abdominal Exam: Normal Bowel Sounds, Soft, Tenderness. absent: Distended, Guarding, Rebound, Rigid Additional comments: LLQ tenderness to deep palpation. Incontinent of yellow-green liquid stool. Foul smelling. - Rectal Exam Rectal Exam: NORMAL INSPECTION - Extremities Exam Extremities exam: Positive for: normal inspection - Neurological Exam Neurological exam: Alert, Oriented x3 - Psychiatric Exam Psychiatric exam: Normal Affect, Normal Mood - Skin Skin Exam: Dry, Warm Results - Vital Signs Recent Vital Signs: Last Vital Signs Temp 98.4 F 03/12/17 08:39 Pulse 94 H 03/12/17 08:39 Resp 18 03/12/17 08:39 BP 138/73 03/12/17 09:36 Pulse Ox 96 03/12/17 08:39 - Labs Result Diagrams: 03/12/17 07:54 03/12/17 07:54 Labs: Laboratory Results - last 24 hr 03/11/17 03/11/17 03/12/17 17:07 17:07 06:38 WBC 17.8 H D RBC 3.80 L Hgb 11.1 L Hct 34.3 L MCV 90.3 D MCH 29.1 MCHC 32.2 L RDW 18.8 H Plt Count 376 MPV 7.0 L Neut % (Auto) 83.5 H Lymph % (Auto) 8.7 L Pine % (Auto) 7.1 Eos % (Auto) 0.5 Baso % (Auto) 0.2 Neut # 14.9 H Lymph # 1.5 Pine # 1.3 H Eos # 0.1 Baso # 0.0 Neutrophils % (Manual) 88 H Band Neutrophils % Lymphocytes % (Manual) 8 L Monocytes % (Manual) 4 Platelet Estimate Normal Large Platelets Present Polychromasia Slight Hypochromasia (manual) Slight Anisocytosis (manual) Slight Microcytosis (manual) Slight Macrocytosis (manual) Slight APTT Sodium 126 L Potassium 3.9 Chloride 88 L Carbon Dioxide 29 Anion Gap 13 BUN 31 H Creatinine 5.5 H Est GFR ( Amer) 12 Est GFR (Non-Af Amer) 10 POC Glucose (mg/dL) 85 Random Glucose 96 Calcium 8.1 L Total Bilirubin AST ALT Alkaline Phosphatase Total Protein Albumin Globulin Albumin/Globulin Ratio 03/12/17 03/12/17 03/12/17 07:54 07:54 07:54 WBC 16.3 H RBC 3.50 L Hgb 10.4 L Hct 31.5 L MCV 90.0 MCH 29.6 MCHC 32.9 L RDW 18.5 H Plt Count 359 MPV 7.0 L Neut % (Auto) 85.6 H Lymph % (Auto) 6.5 L Pine % (Auto) 7.2 Eos % (Auto) 0.4 Baso % (Auto) 0.3 Neut # 13.9 H Lymph # 1.1 Pine # 1.2 H Eos # 0.1 Baso # 0.1 Neutrophils % (Manual) 87 H Band Neutrophils % 1 Lymphocytes % (Manual) 7 L Monocytes % (Manual) 5 Platelet Estimate Normal Large Platelets Polychromasia Hypochromasia (manual) Slight Anisocytosis (manual) Slight Microcytosis (manual) Macrocytosis (manual) APTT 29 Sodium 126 L Potassium 4.0 Chloride 91 L Carbon Dioxide 24 Anion Gap 15 BUN 34 H Creatinine 5.9 H Est GFR ( Amer) 11 Est GFR (Non-Af Amer) 9 POC Glucose (mg/dL) Random Glucose 80 Calcium 7.8 L Total Bilirubin 0.8 AST 30 ALT 23 Alkaline Phosphatase 104 Total Protein 5.7 L Albumin 2.8 L D Globulin 2.9 Albumin/Globulin Ratio 1.0 03/12/17 11:18 WBC RBC Hgb Hct MCV MCH MCHC RDW Plt Count MPV Neut % (Auto) Lymph % (Auto) Pine % (Auto) Eos % (Auto) Baso % (Auto) Neut # Lymph # Pine # Eos # Baso # Neutrophils % (Manual) Band Neutrophils % Lymphocytes % (Manual) Monocytes % (Manual) Platelet Estimate Large Platelets Polychromasia Hypochromasia (manual) Anisocytosis (manual) Microcytosis (manual) Macrocytosis (manual) APTT Sodium Potassium Chloride Carbon Dioxide Anion Gap BUN Creatinine Est GFR ( Amer) Est GFR (Non-Af Amer) POC Glucose (mg/dL) 131 H Random Glucose Calcium Total Bilirubin AST ALT Alkaline Phosphatase Total Protein Albumin Globulin Albumin/Globulin Ratio Assessment & Plan (1) Acute diarrhea Assessment and Plan: acute onset of LLQ pain and diarrhea/fecal incontinence while on Meropenum. High likelihood for C diff infection. Agree with CT Scan. Stool studies as ordered. Emperic Flagyl and cultures to work up leukocytosis. Status: Acute (2) Abdominal tenderness, LLQ (left lower quadrant) Assessment and Plan: as above Status: Acute (3) Diverticulosis large intestine w/o perforation or abscess w/o bleeding Status: Chronic (4) Leukocytosis, unspecified Assessment and Plan: as above. Culture for source of elevation. Status: Acute
[2017-03-12] MEDS: Saccharomyces Boulardi 250 mg Cap PO SCH (18:04)
[2017-03-12] MEDS: Bismuth Subsalicylate 262 mg Chew Tab PO SCH ×2 (18:04→19:56)
[2017-03-12] MEDS ORDERED: Iohexol 240 (50 ml) PO ONE (20:30)
[2017-03-12] MEDS: Vancomycin 125 MG/5 ML SOLN (ORAL/RECTAL) PO SCH (22:28)
--- NOTE | 2017-03-12 22:34 | CP.PCM.PN ---
Subjective - Date & Time of Evaluation Date of Evaluation: 03/12/17 Time of Evaluation: 13:30 - Subjective Subjective: Pt seen and examined at bedside, is weakk, lethrgic, c/o short of breath Objective - Vital Signs/Intake and Output Vital Signs (last 24 hours): Temp Pulse Resp BP Pulse Ox 98.5 F 90 20 135/72 96 03/12/17 16:35 03/12/17 16:35 03/12/17 16:35 03/12/17 16:35 03/12/17 16:35 - Medications Medications: Current Medications Acetaminophen (Tylenol 325mg Tab) 2 mg PO Q4H PRN PRN Reason: Temperature Al Hydrox/Mg Hydrox/Simethicone (Maalox 30 Ml) 30 ml PO Q4H PRN PRN Reason: Heartburn Allopurinol (Zyloprim) 100 mg PO DAILY [facility] Last Admin: 03/12/17 09:37 Dose: 100 mg Bismuth Subsalicylate (Pepto Bismol) 262 mg PO Q4 [facility] Last Admin: 03/12/17 19:56 Dose: Not Given Enalapril Maleate (Vasotec) 10 mg PO DAILY [facility] Last Admin: 03/12/17 09:36 Dose: 10 mg Finasteride (Proscar) 5 mg PO DAILY [facility] Last Admin: 03/12/17 09:37 Dose: 5 mg Furosemide (Lasix) 20 mg PO DAILY [facility] Last Admin: 03/12/17 09:36 Dose: 20 mg Gemfibrozil (Lopid) 600 mg PO HS [facility] Last Admin: 03/12/17 21:10 Dose: 600 mg Heparin Sodium (Porcine) (Heparin) 5,000 units SC Q8 [facility] Last Admin: 03/12/17 21:10 Dose: 5,000 units Hydralazine HCl (Apresoline) 25 mg PO BID [facility] Last Admin: 03/12/17 17:59 Dose: 25 mg Sodium Chloride (Sodium Chloride 0.9%) 1,000 mls @ 60 mls/hr IV .[id number] [facility] Last Admin: 03/12/17 08:28 Dose: Not Given Metronidazole (Flagyl) 500 mg in 100 mls @ 100 mls/hr IVPB Q8 [facility] Last Admin: 03/12/17 21:09 Dose: 100 mls/hr Multivitamins (Hexavitamin) 1 tab PO DAILY [facility] Last Admin: 03/12/17 09:37 Dose: 1 tab Pantoprazole Sodium (Protonix Ec Tab) 40 mg PO DAILY [facility] Saccharomyces Boulardii (Florastor) 250 mg PO BID [facility] Last Admin: 03/12/17 18:04 Dose: 250 mg Tamsulosin HCl (Flomax) 0.4 mg PO DAILY [facility] Last Admin: 03/12/17 09:37 Dose: 0.4 mg Vancomycin HCl (Vancocin (Oral Or Rectal Use)) 250 mg PO QID [facility] Last Admin: 03/12/17 22:28 Dose: 250 mg - Labs Labs: 03/12/17 07:54 03/12/17 07:54 APTT 29 SECONDS (21-34) 03/12/17 07:54 Assessment and Plan (1) Abdominal tenderness, LLQ (left lower quadrant) Status: Acute (2) Acute diarrhea Status: Acute (3) C. difficile diarrhea Status: Acute (4) CKD (chronic kidney disease) Status: Acute (5) Complicated urinary tract infection Status: Acute (6) HTN (hypertension) Status: Acute (7) Hyponatremia Status: Acute (8) Shortness of breath Status: Acute
--- NOTE | 2017-03-12 23:12 | CT ---
EXAM: CT Abdomen and Pelvis With Intravenous Contrast CLINICAL HISTORY: 76 years old, male; Signs and symptoms; Other: Diarrhea TECHNIQUE: Axial computed tomography images of the abdomen and pelvis with intravenous contrast. All CT scans at this facility use one or more dose reduction techniques, viz.: automated exposure control; ma/kV adjustment per patient size (including targeted exams where dose is matched to indication; i.e. head); or iterative reconstruction technique. Coronal and sagittal reformatted images were created and reviewed. CONTRAST: 10 mL of [id number] administered intravenously. COMPARISON: No relevant prior studies available. FINDINGS: Limitations: Lack of intravenous contrast. Motion artifact - mild. Lower thorax: Minimal to mild atelectasis/scarring. Coronary artery calcifications. ABDOMEN: Liver: Unremarkable. No mass. Gallbladder and bile ducts: Calcified gallstones. No ductal dilation. Pancreas: No ductal dilation. No mass. Spleen: No splenomegaly. Adrenals: No mass. Kidneys and ureters: [id number] stranding about kidneys, nonspecific. Mild atrophy of kidneys. No renal calculi. No hydronephrosis. Stomach and bowel: Mild diffuse mural thickening of large bowel with few areas of sparing. Minimal stranding within adjacent fat. No obstruction. Appendix: No findings to suggest acute appendicitis. PELVIS: Bladder: Unremarkable. Reproductive: Unremarkable as visualized. ABDOMEN and PELVIS: Intraperitoneal space: No significant fluid collection. No free air. Mild fascial thickening. Bones/joints: Degenerative changes of spine. No acute fracture. Soft tissues: Unremarkable. Vasculature: Moderate atherosclerotic disease. No aneurysm. Lymph nodes: No pathologically enlarged lymph nodes. Tubes, lines and devices: Central venous catheter. IMPRESSION: 1. Colitis, nonspecific. Consider inflammatory or infectious etiologies. 2. Incidental/non-acute findings are described above.
[2017-03-13] MEDS: Bismuth Subsalicylate 262 mg Chew Tab PO SCH ×6 (00:20→19:07)
[2017-03-13] MEDS: metroNIDAZOLE IV 500 mg/100 ml 500 MG/100 ML BAG IVPB SCH ×3 (05:22→21:22)
[2017-03-13] MEDS: Pantoprazole 40 mg EC Tab PO SCH (10:16)
[2017-03-13] MEDS: Multiple Vitamins Tab PO SCH (10:16)
[2017-03-13] MEDS: Saccharomyces Boulardi 250 mg Cap PO SCH ×3 (10:17→19:07)
--- NOTE | 2017-03-13 10:29 | CP.PCM.PN ---
Subjective - Date & Time of Evaluation Date of Evaluation: 03/13/17 Time of Evaluation: 10:26 - Subjective Subjective: Patient states that the frequency of bowel movements is much less this morning. He denies having nausea, vomiting, abdominal pain. Objective - Vital Signs/Intake and Output Vital Signs (last 24 hours): Temp Pulse Resp BP Pulse Ox 98 F 95 H 20 149/80 95 03/13/17 08:31 03/13/17 08:31 03/13/17 08:31 03/13/17 08:31 03/13/17 08:31 - Medications Medications: Current Medications Acetaminophen (Tylenol 325mg Tab) 2 mg PO Q4H PRN PRN Reason: Temperature Al Hydrox/Mg Hydrox/Simethicone (Maalox 30 Ml) 30 ml PO Q4H PRN PRN Reason: Heartburn Allopurinol (Zyloprim) 100 mg PO DAILY [facility] Last Admin: 03/13/17 10:16 Dose: 100 mg Bismuth Subsalicylate (Pepto Bismol) 262 mg PO Q4 [facility] Last Admin: 03/13/17 09:08 Dose: 262 mg Enalapril Maleate (Vasotec) 10 mg PO DAILY [facility] Last Admin: 03/12/17 09:36 Dose: 10 mg Finasteride (Proscar) 5 mg PO DAILY [facility] Last Admin: 03/13/17 10:16 Dose: 5 mg Furosemide (Lasix) 20 mg PO DAILY [facility] Last Admin: 03/12/17 09:36 Dose: 20 mg Gemfibrozil (Lopid) 600 mg PO HS [facility] Last Admin: 03/12/17 21:10 Dose: 600 mg Heparin Sodium (Porcine) (Heparin) 5,000 units SC Q8 [facility] Last Admin: 03/13/17 05:22 Dose: 5,000 units Hydralazine HCl (Apresoline) 25 mg PO BID [facility] Last Admin: 03/12/17 17:59 Dose: 25 mg Sodium Chloride (Sodium Chloride 0.9%) 1,000 mls @ 60 mls/hr IV .[id number] [facility] Last Admin: 03/12/17 08:28 Dose: Not Given Metronidazole (Flagyl) 500 mg in 100 mls @ 100 mls/hr IVPB Q8 [facility] Last Admin: 03/13/17 05:22 Dose: 100 mls/hr Multivitamins (Hexavitamin) 1 tab PO DAILY [facility] Last Admin: 03/13/17 10:16 Dose: 1 tab Pantoprazole Sodium (Protonix Ec Tab) 40 mg PO DAILY [facility] Last Admin: 03/13/17 10:16 Dose: 40 mg Saccharomyces Boulardii (Florastor) 250 mg PO BID [facility] Last Admin: 03/13/17 10:17 Dose: 250 mg Tamsulosin HCl (Flomax) 0.4 mg PO DAILY [facility] Last Admin: 03/13/17 10:17 Dose: 0.4 mg Vancomycin HCl (Vancocin (Oral Or Rectal Use)) 250 mg PO QID [facility] Last Admin: 03/12/17 22:28 Dose: 250 mg - Labs Labs: 03/12/17 07:54 03/12/17 07:54 APTT 29 SECONDS (21-34) 03/13/17 08:38 - Constitutional Appears: No Acute Distress - Head Exam Head Exam: ATRAUMATIC, NORMOCEPHALIC - Eye Exam Eye Exam: EOMI, PERRL - Neck Exam Neck Exam: absent: Lymphadenopathy, Thyromegaly - Respiratory Exam Respiratory Exam: NORMAL BREATHING PATTERN. absent: Rales, Rhonchi, Wheezes - Cardiovascular Exam Cardiovascular Exam: REGULAR RHYTHM, +S1, +S2. absent: Gallop, Rubs, Murmur - GI/Abdominal Exam GI & Abdominal Exam: Soft, Normal Bowel Sounds. absent: Tenderness, Mass, Organomegaly - Rectal Exam Rectal Exam: Deferred - Extremities Exam Extremities Exam: absent: Calf Tenderness, Pedal Edema Assessment and Plan (1) C. difficile diarrhea Assessment & Plan: Stool from 03/11/17 is reported as positive for C difficile antigen. Vancomycin has already been started. Recommend discontinuing metronidazole. Status: Acute
[2017-03-13 11:57] LABS: HEMATOCRIT 34.4 % (35.0-51.0); MEAN CELL VOLUME 90.3 fL (80.0-94.0); MEAN CORPUSCULAR HEMOGLOBIN 29.2 pg (27.0-31.0); MEAN CORPUSCULAR HGB CONC 32.4 g/dL (33.0-37.0); RED CELL DISTRIBUTION WIDTH 18.7 % (11.5-14.5); WHITE BLOOD COUNT 15.9 K/uL (4.8-10.8)
[2017-03-13] MEDS: Vancomycin 125 MG/5 ML SOLN (ORAL/RECTAL) PO SCH ×3 (12:04→19:06)
[2017-03-13] MEDS ORDERED: Epoetin Alfa 10,000 unit/ml Dialysis IV SCH (14:00)
[2017-03-13] MEDS: Paricalcitol 2 mcg/ml Inj IV SCH (18:24)
[2017-03-13] MEDS: Sodium Chloride 0.9% 1,000 ML IV SCH (18:41)
--- NOTE | 2017-03-13 19:19 | CP.PCM.CON ---
History of Present Illness - History of Present Illness History of Present Illness: pt is seen and examined, full consult is dictated #[id number] 1. esrd 2. diarrhea sec to c. diff colitis 3. htn s/p hd today, uf 2 lit c/w iv flagyl and po vanco Past Patient History - Infectious Disease Hx of Infectious Diseases: None - Past Medical History & Family History Past Medical History?: Yes - Past Social History Smoking Status: Former Smoker - CARDIAC Hx Hypercholesterolemia: Yes Hx Hypertension: Yes - PULMONARY Hx Respiratory Disorders: No Other/Comment: former smoker, SOB with exertion - NEUROLOGICAL Hx Neurological Disorder: No - HEENT Hx HEENT Problems: No - RENAL Hx Chronic Kidney Disease: Yes - ENDOCRINE/METABOLIC Hx Diabetes Mellitus Type 2: Yes - HEMATOLOGICAL/ONCOLOGICAL Hx Anemia: Yes - INTEGUMENTARY Hx Dermatological Problems: No - MUSCULOSKELETAL/RHEUMATOLOGICAL Hx Musculoskeletal Disorders: Yes Hx Falls: Yes Other/Comment: BLE weakness - GASTROINTESTINAL Hx Gastritis: Yes - GENITOURINARY/GYNECOLOGICAL Hx Genitourinary Disorders: Yes Other/Comment: BPH - PSYCHIATRIC Hx Substance Use: No - SURGICAL HISTORY Hx Appendectomy: Yes - ANESTHESIA Hx Anesthesia: Yes Meds Allergies/Adverse Reactions: Allergies Allergy/AdvReac Type Severity Reaction Status Date / Time calcium carbonate [From Tums] Allergy Verified 03/11/17 16:34 dates Allergy Uncoded 03/11/17 16:34 - Medications Medications: Current Medications Acetaminophen (Tylenol 325mg Tab) 650 mg PO Q4H PRN PRN Reason: Fever >100.4 F Al Hydrox/Mg Hydrox/Simethicone (Maalox 30 Ml) 30 ml PO Q4H PRN PRN Reason: Heartburn Allopurinol (Zyloprim) 100 mg PO DAILY [facility] Last Admin: 03/13/17 10:16 Dose: 100 mg Bismuth Subsalicylate (Pepto Bismol) 262 mg PO Q4 [facility] Last Admin: 03/13/17 19:07 Dose: 262 mg Enalapril Maleate (Vasotec) 10 mg PO DAILY [facility] Last Admin: 03/13/17 11:25 Dose: Not Given Epoetin Kyle (Procrit) 10,000 unit IV MWF [facility] 234 [facility]S [facility] Stop: 03/24/17 09:01 Finasteride (Proscar) 5 mg PO DAILY [facility]S [facility] Last Admin: 03/13/17 10:16 Dose: 5 mg Furosemide (Lasix) 20 mg PO DAILY [facility] Last Admin: 03/13/17 19:06 Dose: 20 mg Gemfibrozil (Lopid) 600 mg PO HS [facility] Last Admin: 03/12/17 21:10 Dose: 600 mg Heparin Sodium (Porcine) (Heparin) 5,000 units SC Q8 [facility] Last Admin: 03/13/17 14:13 Dose: Not Given Hydralazine HCl (Apresoline) 25 mg PO BID [facility] Last Admin: 03/13/17 19:06 Dose: 25 mg Sodium Chloride (Sodium Chloride 0.9%) 1,000 mls @ 60 mls/hr IV .[id number] [facility] 234 [facility]S [facility] Last Admin: 03/13/17 18:41 Dose: Not Given Metronidazole (Flagyl) 500 mg in 100 mls @ 100 mls/hr IVPB Q8 [facility] Last Admin: 03/13/17 14:12 Dose: Not Given Multivitamins (Hexavitamin) 1 tab PO DAILY [facility] Last Admin: 03/13/17 10:16 Dose: 1 tab Pantoprazole Sodium (Protonix Ec Tab) 40 mg PO DAILY [facility] Last Admin: 03/13/17 10:16 Dose: 40 mg Paricalcitol (Zemplar) 2 mcg IV MWF [facility] 234 [facility]S [facility] Stop: 03/24/17 09:01 Last Admin: 03/13/17 18:24 Dose: 2 mcg Saccharomyces Boulardii (Florastor) 250 mg PO BID [facility] Last Admin: 03/13/17 19:07 Dose: 250 mg Tamsulosin HCl (Flomax) 0.4 mg PO DAILY [facility] Last Admin: 03/13/17 10:17 Dose: 0.4 mg Vancomycin HCl (Vancocin (Oral Or Rectal Use)) 250 mg PO Q6H [facility] Last Admin: 03/13/17 19:06 Dose: 250 mg Results - Vital Signs Recent Vital Signs: Last Vital Signs Temp 97.7 F 03/13/17 19:00 Pulse 101 H 03/13/17 19:00 Resp 20 03/13/17 19:00 BP 138/75 03/13/17 19:06 Pulse Ox 98 03/13/17 19:00 - Labs Result Diagrams: 03/13/17 11:49 03/13/17 11:49 Labs: Laboratory Results - last 24 hr 03/12/17 03/13/17 03/13/17 21:07 06:45 08:38 WBC RBC Hgb Hct MCV MCH MCHC RDW Plt Count MPV APTT 29 Sodium Potassium Chloride Carbon Dioxide Anion Gap BUN Creatinine Est GFR ( Amer) Est GFR (Non-Af Amer) POC Glucose (mg/dL) 103 89 Random Glucose Calcium 03/13/17 03/13/17 03/13/17 11:22 11:22 11:49 WBC 15.9 H RBC 3.81 L Hgb 11.1 L Hct 34.4 L MCV 90.3 MCH 29.2 MCHC 32.4 L RDW 18.7 H Plt Count 385 MPV 7.0 L APTT Sodium Potassium Chloride Carbon Dioxide Anion Gap BUN Creatinine Est GFR ( Amer) Est GFR (Non-Af Amer) POC Glucose (mg/dL) 132 H 132 H Random Glucose Calcium 03/13/17 03/13/17 11:49 18:41 WBC RBC Hgb Hct MCV MCH MCHC RDW Plt Count MPV APTT Sodium 127 L Potassium 4.0 Chloride 93 L Carbon Dioxide 22 Anion Gap 16 BUN 38 H Creatinine 5.8 H Est GFR ( Amer) 12 Est GFR (Non-Af Amer) 10 POC Glucose (mg/dL) 109 Random Glucose 81 Calcium 8.0 L
[2017-03-13 22:22] LABS: FECAL LEUKOCYTES POSITIVE (NEGATIVE)
[2017-03-13 22:24] LABS: C DIFF TOXIN A B POSITIVE (NEGATIVE)
--- NOTE | 2017-03-13 23:43 | CP.PCM.PN ---
Subjective - Date & Time of Evaluation Date of Evaluation: 03/13/17 Time of Evaluation: 17:50 - Subjective Subjective: pt is seen and examined,denies diarrhea, abdominal pain is resolved, CT abdomen is without any abnormal findings , shows nonspecific collitis Objective - Vital Signs/Intake and Output Vital Signs (last 24 hours): Temp Pulse Resp BP Pulse Ox 98.2 F 82 20 126/71 96 03/13/17 23:21 03/13/17 23:21 03/13/17 23:21 03/13/17 23:21 03/13/17 23:21 Intake and Output: 03/13/17 03/14/17 18:59 06:59 Intake Total 780 880 Balance 780 880 - Medications Medications: Current Medications Acetaminophen (Tylenol 325mg Tab) 650 mg PO Q4H PRN PRN Reason: Fever >100.4 F Al Hydrox/Mg Hydrox/Simethicone (Maalox 30 Ml) 30 ml PO Q4H PRN PRN Reason: Heartburn Allopurinol (Zyloprim) 100 mg PO DAILY [facility] Last Admin: 03/13/17 10:16 Dose: 100 mg Bismuth Subsalicylate (Pepto Bismol) 262 mg PO Q4 [facility] Last Admin: 03/13/17 19:07 Dose: 262 mg Enalapril Maleate (Vasotec) 10 mg PO DAILY [facility] Last Admin: 03/13/17 21:23 Dose: 10 mg Finasteride (Proscar) 5 mg PO DAILY [facility] Last Admin: 03/13/17 10:16 Dose: 5 mg Furosemide (Lasix) 20 mg PO DAILY [facility] Last Admin: 03/13/17 19:06 Dose: 20 mg Gemfibrozil (Lopid) 600 mg PO HS [facility] Last Admin: 03/13/17 21:23 Dose: 600 mg Heparin Sodium (Porcine) (Heparin) 5,000 units SC Q8 [facility] Last Admin: 03/13/17 21:23 Dose: 5,000 units Hydralazine HCl (Apresoline) 25 mg PO BID [facility] Last Admin: 03/13/17 19:06 Dose: 25 mg Sodium Chloride (Sodium Chloride 0.9%) 1,000 mls @ 60 mls/hr IV .[id number] [facility] Last Admin: 03/13/17 18:41 Dose: Not Given Metronidazole (Flagyl) 500 mg in 100 mls @ 100 mls/hr IVPB Q8 [facility] Last Admin: 03/13/17 21:22 Dose: 100 mls/hr Multivitamins (Hexavitamin) 1 tab PO DAILY [facility] Last Admin: 03/13/17 10:16 Dose: 1 tab Pantoprazole Sodium (Protonix Ec Tab) 40 mg PO DAILY [facility] Last Admin: 03/13/17 10:16 Dose: 40 mg Paricalcitol (Zemplar) 2 mcg IV MWF [facility] Stop: 03/24/17 09:01 Last Admin: 03/13/17 18:24 Dose: 2 mcg Saccharomyces Boulardii (Florastor) 250 mg PO BID [facility] Last Admin: 03/13/17 19:07 Dose: 250 mg Tamsulosin HCl (Flomax) 0.4 mg PO DAILY [facility] Last Admin: 03/13/17 10:17 Dose: 0.4 mg Vancomycin HCl (Vancocin (Oral Or Rectal Use)) 250 mg PO Q6H [facility] Last Admin: 03/13/17 19:06 Dose: 250 mg - Labs Labs: 03/13/17 11:49 03/13/17 11:49 APTT 29 SECONDS (21-34) 03/13/17 08:38 - Constitutional Appears: No Acute Distress - Head Exam Head Exam: ATRAUMATIC, NORMAL INSPECTION, NORMOCEPHALIC - ENT Exam ENT Exam: Mucous Membranes Moist, Normal Exam - Respiratory Exam Respiratory Exam: Clear to Ausculation Bilateral, NORMAL BREATHING PATTERN - Cardiovascular Exam Cardiovascular Exam: REGULAR RHYTHM, +S1, +S2. absent: Murmur - GI/Abdominal Exam GI & Abdominal Exam: Soft, Normal Bowel Sounds. absent: Tenderness Assessment and Plan (1) Abdominal tenderness, LLQ (left lower quadrant) Status: Acute (2) Acute diarrhea Status: Acute (3) C. difficile diarrhea Status: Acute (4) CKD (chronic kidney disease) Status: Acute - Assessment and Plan (Free Text) Plan: continue Po vancomycin D/C antibiotics
[2017-03-14] MEDS: Vancomycin 125 MG/5 ML SOLN (ORAL/RECTAL) PO SCH ×5 (00:30→23:48)
[2017-03-14] MEDS: Bismuth Subsalicylate 262 mg Chew Tab PO SCH ×7 (00:30→23:48)
--- NOTE | 2017-03-14 02:37 | CON ---
CARDIOLOGY CONSULTATION HISTORY OF PRESENT ILLNESS: A 76-year-old gentleman with history of known hypertension, CKD on dialysis, awaiting shunt, was brought in with an increasing diarrhea. He was found to be possibly septic, white count was 18,000 and was recommended admission. The patient has a history of recurrent colitis, has been evaluated by Dr. Truong in the past. PERSONAL HISTORY: Does not smoke, does not drink. ALLERGIES: DENIED. FAMILY HISTORY: Mother has diabetes and hypertension. One brother had a hypertrophic cardiomyopathy. REVIEW OF SYSTEMS: Generalized weakness is noted. Low-grade fever. Eyes: Unremarkable. No hearing loss. No cough. No chest discomfort. Occasional shortness of breath. Colonoscopy and endoscopy done in the past were unremarkable except gastritis. : The patient was seen by Dr. Montoya, had a cystoscopy done but currently negative. History of Klebsiella UTI. Neurologically negative for TIAs or CVAs. Psych: Negative for depression. The patient did have a history of confusion in the past. Rheumatological: History of arthritis in multiple joints and back pains. PAST MEDICAL HISTORY: Hypertension, borderline diabetes, chronic kidney disease. PHYSICAL EXAMINATION: GENERAL: Shows an elderly gentleman, who is conscious, alert, chronically sick-looking, getting hemodialysis, in no acute distress. He is 5 feet 8 inches, weighs 180 pounds. VITAL SIGNS: Blood pressure is 118/70; heart rate of 78; respiratory rate of 20, afebrile. HEENT: Head is normocephalic. Eyes; no pallor, no icterus. NECK: Supple. LUNGS: Clear to auscultation. HEART: PMI is not localized. S1 and S2 is distant. No definite gallops. ABDOMEN: Soft, nontender. EXTREMITIES: No cyanosis, clubbing or edema. Distal pulses are intact. NEUROLOGICALLY: Awake, alert, oriented x3. PSYCH: No evidence of depression. SKIN: Shows placement of a catheter at the right infraclavicular area for dialysis. LABORATORY DATA: His white count repeat one is 15.9, platelet count of 385. Sodium was 127, potassium is 4. ASSESSMENT: A 76-year-old gentleman with a history of hypertension with chronic kidney disease. PLAN: At this point, continuing hemodialysis, rule out sepsis. I will follow on p.r.n. basis. Rigo Comer MD [facility] # [id number]
--- NOTE | 2017-03-14 04:25 | CON ---
DATE: LOCATION: Room 557, bed A. REQUESTED BY: Yeison Cole MD RENAL FOR RENAL CONSULTATION: End-stage renal disease for continuation of hemodialysis, diarrhea, rule out C. diff colitis. HISTORY OF PRESENT ILLNESS: Mr. Cho is a 76 years old elderly male with a past medical history significant for hypertension, osteoarthritis, anemia, BPH, recurrent UTI, end-stage renal disease, on hemodialysis 3 times a week, Monday, and Monday, was admitted with chief complaints of diarrhea for about 2 to 3 weeks, not relieved with [id number] medication, patient's diarrhea got worse on Monday and unable to tolerate dialysis. The patient went for dialysis and having persistent watery bowel movement, and the patient was referred to the emergency room for further evaluation for possible C. diff colitis. The patient was started on Flagyl IV q. 8 hours, stool for C. diff toxin was positive for C. diff toxin. The patient is on isolation and also started on p.o. vancomycin 250 mg q. 6 hours. Patient still complains of loose bowel movement. Denies any abdominal pain. Denies any fever or cough. Denies any chest pain or palpitation. Denies any nausea. The patient does complains of decreased p.o. intake. PAST MEDICAL HISTORY: Significant for hypertension, end-stage renal disease, BPH, arthritis, anemia, and gout. PAST SURGICAL HISTORY: Status post PermCath placement. ALLERGIES: TO DATES AND CALCIUM CARBONATE. SOCIAL HISTORY: No smoking. No alcohol. No drugs. FAMILY HISTORY: Is not significant. He has a very supportive family, son and . CURRENT MEDICATIONS: Include as follows, hydralazine 25 mg p.o. b.i.d., Flagyl 500 mg q. 8 hours, Flomax 0.4 mg p.o. daily, Florastor 250 mg p.o. b.i.d., subcu heparin 5000 q. 8 hours, multivitamin 1 tablet daily, Lasix 20 mg p.o. daily, Lopid 600 mg p.o. at bedtime, Maalox, Pepto-Bismol, Proscar 5 mg p.o. daily, Protonix 40 mg daily, IV fluids normal saline at 60 mL per hour, Tylenol, vancomycin 250 mg p.o. q. 6 hours, enalapril 10 mg p.o. daily, Zemplar 2 mcg 3 times a week, and allopurinol 100 mg p.o. daily. REVIEW OF SYSTEMS: Significant persistent loose bowel movement for 2 to 3 weeks and missed dialysis on Monday. Last hemodialysis on Monday. Other review systems reviewed and negative. PHYSICAL EXAMINATION: VITAL SIGNS: Physical exam as follows, blood pressure 144/80, pulse 91, respirations 16, temperature 97.7, saturation 98%. Height 5 feet 8 inches, and weight is 192 pounds. GENERAL: On physical exam, Mr. Cho is a 76 years elderly male, moderately built, moderate nourished, not in acute distress. HEENT: Pupils normal, reactive to light and accommodation. Conjunctivae pink. Sclerae nonicteric. Tongue is moist and trachea is midline. LUNGS: Symmetric on both sides. Bilateral breath sounds present. Clear on auscultation. CARDIOVASCULAR: [place] at the fifth intercostal space, midclavicular area. S1 and S2. No murmur or gallop. ABDOMEN: Protuberant, soft, tympanic, mild left quadrant tenderness present. No guarding. No rigidity. No hepatosplenomegaly. CENTRAL NERVOUS SYSTEMS: The patient is alert, awake, oriented x3. Nonfocal neuro examination. Cranial nerves II through XII grossly intact. Sensory and motor system is grossly within normal limits. EXTREMITIES: No cyanosis, no clubbing, no edema. The patient is wheelchair-bound in the last few months. LABORATORY DATA: Include as follows, as of 03/11/2017, WBC 17.8, hemoglobin 11.1, hematocrit is 34.3, platelets 376. Sodium 126, potassium 3.9, chloride 88, CO2 of 29, BUN 31, creatinine 5.5, glucose 96, calcium 8.1. Stool for C. diff toxin as of 03/11/2017 is positive and repeat C. diff toxin is positive on 03/12/2017, and also stool for leukocytes is positive. As of 03/13/2017, WBC 15.9, hemoglobin 11.1, hematocrit is 34.4, platelets 385. Sodium 127, potassium is 4, chloride 93, CO2 of 22, BUN 38, creatinine 5.8, glucose 132, and calcium is 8.0, and stool for occult blood is negative and hepatitis B surface antigen is negative. As of 03/12/2017, CT of the abdomen and pelvis, impression: colitis, nonspecific; consider inflammatory or infectious etiology, incidental nonacute findings, bladder unremarkable, kidneys and ureter [id number] stranding about kidneys, nonspecific mild atrophy of the kidneys. No renal calculi, no hydronephrosis, stomach and bowel with mild diffuse mural thickening of the large bowel, with few area of sparing, minimal stranding within adjacent fat. No obstruction. Appendix, no findings to suggest acute appendicitis. IMPRESSION AND PLAN: In summary, Mr. Cho is a 76 years old elderly obese male with a history of hypertension, arthritis, BPH, end-stage renal disease, on hemodialysis 3 times a week, status post urinary tract infection with loose bowel movement for the last 2 to 3 weeks. 1. End-stage renal disease. Continue hemodialysis 3 times a week, Monday, Monday and Monday. 2. Clostridium difficile colitis. 3. Hypertension. 4. Benign prostatic hypertrophy. Continue his current medications, hydralazine and enalapril for the blood pressures, and also continue multivitamins, continue Zemplar and continue Protonix. Continue Flagyl and vancomycin. Continue with IV fluids also, 70 mL per hour. Thank you for allowing me to participate in your patient's care and the patient underwent hemodialysis this evening and ultrafiltration about 2 L, and tolerated it very well. Emir Kirk MD
[2017-03-14] MEDS: metroNIDAZOLE IV 500 mg/100 ml 500 MG/100 ML BAG IVPB SCH ×3 (05:27→21:29)
[2017-03-14] MEDS: Sodium Chloride 0.9% 1,000 ML IV SCH (09:15)
[2017-03-14] MEDS: Pantoprazole 40 mg EC Tab PO SCH (10:20)
[2017-03-14] MEDS: Multiple Vitamins Tab PO SCH (10:20)
[2017-03-14] MEDS: Saccharomyces Boulardi 250 mg Cap PO SCH ×2 (10:20→17:08)
--- NOTE | 2017-03-14 12:20 | CP.PCM.PN ---
Subjective - Date & Time of Evaluation Date of Evaluation: 03/14/17 Time of Evaluation: 12:19 - Subjective Subjective: very weak, Objective - Vital Signs/Intake and Output Vital Signs (last 24 hours): Temp Pulse Resp BP Pulse Ox 97.4 F L 75 20 131/78 97 03/14/17 07:01 03/14/17 07:01 03/14/17 07:01 03/14/17 10:21 03/14/17 07:01 Intake and Output: 03/14/17 03/14/17 06:59 18:59 Intake Total 880 Balance 880 - Medications Medications: Current Medications Acetaminophen (Tylenol 325mg Tab) 650 mg PO Q4H PRN PRN Reason: Fever >100.4 F Al Hydrox/Mg Hydrox/Simethicone (Maalox 30 Ml) 30 ml PO Q4H PRN PRN Reason: Heartburn Allopurinol (Zyloprim) 100 mg PO DAILY [facility] Last Admin: 03/14/17 10:20 Dose: 100 mg Bismuth Subsalicylate (Pepto Bismol) 262 mg PO Q4 [facility] Last Admin: 03/14/17 10:23 Dose: 262 mg Enalapril Maleate (Vasotec) 10 mg PO DAILY [facility] Last Admin: 03/14/17 10:21 Dose: 10 mg Finasteride (Proscar) 5 mg PO DAILY [facility] Last Admin: 03/14/17 10:21 Dose: 5 mg Furosemide (Lasix) 20 mg PO DAILY [facility] Last Admin: 03/14/17 10:20 Dose: 20 mg Gemfibrozil (Lopid) 600 mg PO HS [facility] Last Admin: 03/13/17 21:23 Dose: 600 mg Heparin Sodium (Porcine) (Heparin) 5,000 units SC Q8 [facility] Last Admin: 03/14/17 05:27 Dose: 5,000 units Hydralazine HCl (Apresoline) 25 mg PO BID [facility] Last Admin: 03/14/17 10:21 Dose: 25 mg Sodium Chloride (Sodium Chloride 0.9%) 1,000 mls @ 60 mls/hr IV .[id number] [facility] Last Admin: 03/14/17 09:15 Dose: 60 mls/hr Metronidazole (Flagyl) 500 mg in 100 mls @ 100 mls/hr IVPB Q8 [facility] Last Admin: 03/14/17 05:27 Dose: 100 mls/hr Multivitamins (Hexavitamin) 1 tab PO DAILY [facility] Last Admin: 03/14/17 10:20 Dose: 1 tab Pantoprazole Sodium (Protonix Ec Tab) 40 mg PO DAILY [facility] Last Admin: 03/14/17 10:20 Dose: 40 mg Paricalcitol (Zemplar) 2 mcg IV MWF [facility] Stop: 03/24/17 09:01 Last Admin: 03/13/17 18:24 Dose: 2 mcg Saccharomyces Boulardii (Florastor) 250 mg PO BID [facility] Last Admin: 03/14/17 10:20 Dose: 250 mg Tamsulosin HCl (Flomax) 0.4 mg PO DAILY [facility] Last Admin: 03/14/17 10:21 Dose: 0.4 mg Vancomycin HCl (Vancocin (Oral Or Rectal Use)) 250 mg PO Q6H [facility] Last Admin: 03/14/17 05:27 Dose: 250 mg - Labs Labs: 03/13/17 11:49 03/13/17 11:49 APTT 29 SECONDS (21-34) 03/13/17 08:38 - Constitutional Appears: No Acute Distress, Chronically Ill - Head Exam Head Exam: NORMOCEPHALIC - Eye Exam Eye Exam: Normal appearance - Respiratory Exam Respiratory Exam: Clear to Ausculation Bilateral - Cardiovascular Exam Cardiovascular Exam: REGULAR RHYTHM - GI/Abdominal Exam GI & Abdominal Exam: Soft - Extremities Exam Extremities Exam: absent: Pedal Edema - Neurological Exam Neurological Exam: Alert, Oriented x3 Assessment and Plan - Assessment and Plan (Free Text) Assessment: ckd.bp control.afebrile.
[2017-03-14 12:29] LABS: HEMATOCRIT 30.8 % (35.0-51.0); MEAN CELL VOLUME 90.9 fL (80.0-94.0); MEAN CORPUSCULAR HEMOGLOBIN 29.4 pg (27.0-31.0); MEAN CORPUSCULAR HGB CONC 32.3 g/dL (33.0-37.0); RED CELL DISTRIBUTION WIDTH 18.4 % (11.5-14.5); WHITE BLOOD COUNT 8.9 K/uL (4.8-10.8)
[2017-03-14 12:58] LABS: CALCIUM 7.1 mg/dl (8.6-10.4); POTASSIUM 3.2 mmol/L (3.6-5.2)
--- NOTE | 2017-03-14 17:12 | CP.PCM.PN ---
Subjective - Date & Time of Evaluation Date of Evaluation: 03/14/17 Time of Evaluation: 17:10 - Subjective Subjective: Nurses report five stools today, although patient's estimate is lower. He denies having nausea, vomiting, abdominal pain. Objective - Vital Signs/Intake and Output Vital Signs (last 24 hours): Temp Pulse Resp BP Pulse Ox 97.4 F L 75 20 131/78 97 03/14/17 07:01 03/14/17 07:01 03/14/17 07:01 03/14/17 10:21 03/14/17 07:01 Intake and Output: 03/14/17 03/14/17 06:59 18:59 Intake Total 880 Balance 880 - Medications Medications: Current Medications Acetaminophen (Tylenol 325mg Tab) 650 mg PO Q4H PRN PRN Reason: Fever >100.4 F Al Hydrox/Mg Hydrox/Simethicone (Maalox 30 Ml) 30 ml PO Q4H PRN PRN Reason: Heartburn Allopurinol (Zyloprim) 100 mg PO DAILY [facility] Last Admin: 03/14/17 10:20 Dose: 100 mg Bismuth Subsalicylate (Pepto Bismol) 262 mg PO Q4 [facility] Last Admin: 03/14/17 17:09 Dose: 262 mg Enalapril Maleate (Vasotec) 10 mg PO DAILY [facility] Last Admin: 03/14/17 10:21 Dose: 10 mg Finasteride (Proscar) 5 mg PO DAILY [facility] Last Admin: 03/14/17 10:21 Dose: 5 mg Furosemide (Lasix) 20 mg PO DAILY [facility] Last Admin: 03/14/17 10:20 Dose: 20 mg Gemfibrozil (Lopid) 600 mg PO HS [facility] Last Admin: 03/13/17 21:23 Dose: 600 mg Heparin Sodium (Porcine) (Heparin) 5,000 units SC Q8 [facility] Last Admin: 03/14/17 14:33 Dose: 5,000 units Hydralazine HCl (Apresoline) 25 mg PO BID [facility] Last Admin: 03/14/17 17:08 Dose: 25 mg Sodium Chloride (Sodium Chloride 0.9%) 1,000 mls @ 60 mls/hr IV .[id number] [facility] Last Admin: 03/14/17 09:15 Dose: 60 mls/hr Metronidazole (Flagyl) 500 mg in 100 mls @ 100 mls/hr IVPB Q8 [facility] Last Admin: 03/14/17 14:33 Dose: 100 mls/hr Multivitamins (Hexavitamin) 1 tab PO DAILY [facility] Last Admin: 03/14/17 10:20 Dose: 1 tab Pantoprazole Sodium (Protonix Ec Tab) 40 mg PO DAILY [facility] Last Admin: 03/14/17 10:20 Dose: 40 mg Paricalcitol (Zemplar) 2 mcg IV MWF [facility] Stop: 03/24/17 09:01 Last Admin: 03/13/17 18:24 Dose: 2 mcg Saccharomyces Boulardii (Florastor) 250 mg PO BID [facility] Last Admin: 03/14/17 17:08 Dose: 250 mg Tamsulosin HCl (Flomax) 0.4 mg PO DAILY [facility] Last Admin: 03/14/17 10:21 Dose: 0.4 mg Vancomycin HCl (Vancocin (Oral Or Rectal Use)) 250 mg PO Q6H [facility] Last Admin: 03/14/17 17:08 Dose: 250 mg - Labs Labs: 03/14/17 12:14 03/14/17 12:14 APTT 29 SECONDS (21-34) 03/13/17 08:38 - Constitutional Appears: No Acute Distress - Head Exam Head Exam: ATRAUMATIC, NORMOCEPHALIC - Eye Exam Eye Exam: EOMI, PERRL - Neck Exam Neck Exam: absent: Lymphadenopathy, Thyromegaly - Respiratory Exam Respiratory Exam: NORMAL BREATHING PATTERN. absent: Rales, Rhonchi, Wheezes - Cardiovascular Exam Cardiovascular Exam: REGULAR RHYTHM, +S1, +S2. absent: Gallop, Rubs, Murmur - GI/Abdominal Exam GI & Abdominal Exam: Soft, Normal Bowel Sounds. absent: Tenderness, Mass, Organomegaly - Rectal Exam Rectal Exam: Deferred - Extremities Exam Extremities Exam: absent: Calf Tenderness, Pedal Edema Assessment and Plan (1) C. difficile diarrhea Assessment & Plan: Patient has C difficile infection with persistent diarrhea. Recommend lactose free diet and trial of cholestyramine. Status: Acute
[2017-03-14] MEDS ORDERED: Potassium Chloride 20 mEq ER Tab PO STA (18:41)
--- NOTE | 2017-03-14 18:43 | CP.PCM.PN ---
Subjective - Date & Time of Evaluation Date of Evaluation: 03/14/17 Time of Evaluation: 18:43 - Subjective Subjective: pt is seen and examined, follow up consult is dictated #[id number] Objective - Vital Signs/Intake and Output Vital Signs (last 24 hours): Temp Pulse Resp BP Pulse Ox 97.3 F L 86 20 142/87 95 03/14/17 16:00 03/14/17 16:00 03/14/17 16:00 03/14/17 16:00 03/14/17 16:00 Intake and Output: 03/14/17 03/14/17 06:59 18:59 Intake Total 880 1210 Balance 880 1210 - Medications Medications: Current Medications Acetaminophen (Tylenol 325mg Tab) 650 mg PO Q4H PRN PRN Reason: Fever >100.4 F Al Hydrox/Mg Hydrox/Simethicone (Maalox 30 Ml) 30 ml PO Q4H PRN PRN Reason: Heartburn Allopurinol (Zyloprim) 100 mg PO DAILY [facility] Last Admin: 03/14/17 10:20 Dose: 100 mg Bismuth Subsalicylate (Pepto Bismol) 262 mg PO Q4 [facility] Last Admin: 03/14/17 17:09 Dose: 262 mg Cholestyramine Resin (Questran) 4 gm PO BID [facility] Enalapril Maleate (Vasotec) 10 mg PO DAILY [facility] Last Admin: 03/14/17 10:21 Dose: 10 mg Finasteride (Proscar) 5 mg PO DAILY [facility] Last Admin: 03/14/17 10:21 Dose: 5 mg Furosemide (Lasix) 20 mg PO DAILY [facility] Last Admin: 03/14/17 10:20 Dose: 20 mg Gemfibrozil (Lopid) 600 mg PO HS [facility] Last Admin: 03/13/17 21:23 Dose: 600 mg Heparin Sodium (Porcine) (Heparin) 5,000 units SC Q8 [facility] Last Admin: 03/14/17 14:33 Dose: 5,000 units Hydralazine HCl (Apresoline) 25 mg PO BID [facility] Last Admin: 03/14/17 17:08 Dose: 25 mg Sodium Chloride (Sodium Chloride 0.9%) 1,000 mls @ 60 mls/hr IV .[id number] [facility] Last Admin: 03/14/17 09:15 Dose: 60 mls/hr Metronidazole (Flagyl) 500 mg in 100 mls @ 100 mls/hr IVPB Q8 [facility] Last Admin: 03/14/17 14:33 Dose: 100 mls/hr Multivitamins (Hexavitamin) 1 tab PO DAILY [facility] Last Admin: 03/14/17 10:20 Dose: 1 tab Pantoprazole Sodium (Protonix Ec Tab) 40 mg PO DAILY [facility] Last Admin: 03/14/17 10:20 Dose: 40 mg Paricalcitol (Zemplar) 2 mcg IV MWF [facility] Stop: 03/24/17 09:01 Last Admin: 03/13/17 18:24 Dose: 2 mcg Potassium Chloride (K-Dur 20 Meq Er Tab) 20 meq PO STAT [facility] Stop: 03/14/17 18:42 Saccharomyces Boulardii (Florastor) 250 mg PO BID [facility] Last Admin: 03/14/17 17:08 Dose: 250 mg Tamsulosin HCl (Flomax) 0.4 mg PO DAILY [facility] Last Admin: 03/14/17 10:21 Dose: 0.4 mg Vancomycin HCl (Vancocin (Oral Or Rectal Use)) 250 mg PO Q6H [facility] Last Admin: 03/14/17 17:08 Dose: 250 mg - Labs Labs: 03/14/17 12:14 03/14/17 12:14 APTT 29 SECONDS (21-34) 03/13/17 08:38
[2017-03-14] MEDS: Cholestyramine 4 gm/Pkt UD PO SCH (21:30)
--- NOTE | 2017-03-14 22:51 | CP.PCM.PN ---
Subjective - Date & Time of Evaluation Date of Evaluation: 03/14/17 Time of Evaluation: 10:55 - Subjective Subjective: Patient seen and examined at bedside.Pt is doing better, wbc count trending down , has decreased diarrhea, dec abdominal pain, no fever. Hb is 9.2 Objective - Vital Signs/Intake and Output Vital Signs (last 24 hours): Temp Pulse Resp BP Pulse Ox 97.3 F L 86 20 142/70 95 03/14/17 16:00 03/14/17 16:00 03/14/17 16:00 03/14/17 17:00 03/14/17 16:00 Intake and Output: 03/14/17 03/15/17 18:59 06:59 Intake Total 1210 Balance 1210 - Medications Medications: Current Medications Acetaminophen (Tylenol 325mg Tab) 650 mg PO Q4H PRN PRN Reason: Fever >100.4 F Al Hydrox/Mg Hydrox/Simethicone (Maalox 30 Ml) 30 ml PO Q4H PRN PRN Reason: Heartburn Allopurinol (Zyloprim) 100 mg PO DAILY [facility] Last Admin: 03/14/17 10:20 Dose: 100 mg Bismuth Subsalicylate (Pepto Bismol) 262 mg PO Q4 [facility] Last Admin: 03/14/17 19:24 Dose: 262 mg Cholestyramine Resin (Questran) 4 gm PO BID [facility] Last Admin: 03/14/17 21:30 Dose: 4 gm Enalapril Maleate (Vasotec) 10 mg PO DAILY [facility] Last Admin: 03/14/17 10:21 Dose: 10 mg Finasteride (Proscar) 5 mg PO DAILY [facility] Last Admin: 03/14/17 10:21 Dose: 5 mg Furosemide (Lasix) 20 mg PO DAILY [facility] Last Admin: 03/14/17 10:20 Dose: 20 mg Gemfibrozil (Lopid) 600 mg PO HS [facility] Last Admin: 03/14/17 21:30 Dose: 600 mg Hydralazine HCl (Apresoline) 25 mg PO BID [facility] Last Admin: 03/14/17 17:08 Dose: 25 mg Sodium Chloride (Sodium Chloride 0.9%) 1,000 mls @ 60 mls/hr IV .[id number] [facility] Last Admin: 03/14/17 09:15 Dose: 60 mls/hr Metronidazole (Flagyl) 500 mg in 100 mls @ 100 mls/hr IVPB Q8 [facility] Last Admin: 03/14/17 21:29 Dose: 100 mls/hr Multivitamins (Hexavitamin) 1 tab PO DAILY [facility] Last Admin: 03/14/17 10:20 Dose: 1 tab Pantoprazole Sodium (Protonix Ec Tab) 40 mg PO DAILY [facility] Last Admin: 03/14/17 10:20 Dose: 40 mg Paricalcitol (Zemplar) 2 mcg IV MWF [facility] Stop: 03/24/17 09:01 Last Admin: 03/13/17 18:24 Dose: 2 mcg Saccharomyces Boulardii (Florastor) 250 mg PO BID [facility] Last Admin: 03/14/17 17:08 Dose: 250 mg Tamsulosin HCl (Flomax) 0.4 mg PO DAILY [facility] Last Admin: 03/14/17 10:21 Dose: 0.4 mg Vancomycin HCl (Vancocin (Oral Or Rectal Use)) 250 mg PO Q6H [facility] Last Admin: 03/14/17 17:08 Dose: 250 mg - Labs Labs: 03/14/17 12:14 03/14/17 12:14 APTT 29 SECONDS (21-34) 03/13/17 08:38 - Constitutional Appears: No Acute Distress - Head Exam Head Exam: ATRAUMATIC, NORMAL INSPECTION, NORMOCEPHALIC - Eye Exam Eye Exam: EOMI, Normal appearance, PERRL Pupil Exam: NORMAL ACCOMODATION, PERRL - ENT Exam ENT Exam: Mucous Membranes Moist, Normal Exam - Neck Exam Neck Exam: Full ROM, Normal Inspection. absent: Lymphadenopathy - Respiratory Exam Respiratory Exam: Decreased Breath Sounds, Rales, Rhonchi - Cardiovascular Exam Cardiovascular Exam: REGULAR RHYTHM, +S1, +S2. absent: Murmur - GI/Abdominal Exam GI & Abdominal Exam: Soft, Normal Bowel Sounds. absent: Tenderness Assessment and Plan (1) Abdominal tenderness, LLQ (left lower quadrant) Status: Acute (2) Acute diarrhea Status: Acute (3) C. difficile diarrhea Status: Acute (4) CKD (chronic kidney disease) Status: Acute
--- NOTE | 2017-03-15 03:29 | PN ---
DATE: LOCATION: Patient is located in room 557, bed A. REQUESTED BY: Yeison Cole MD REASON FOR RENAL CONSULTATION: End-stage renal disease, C. diff colitis for continuation of hemodialysis. HISTORY OF PRESENT ILLNESS: Mr. Cho is a 76 years old elderly obese male with a past medical history significant for longstanding hypertension, arthritis, BPH, recurrent UTI, end-stage renal disease on hemodialysis 3 times a week, Monday, and Monday, was admitted with chief complaints of severe, profuse diarrhea for the last 2 weeks and unable to get dialysis on Monday. The patient came from the dialysis unit without receiving any hemodialysis due to severe diarrhea. The patient was found to have C. diff colitis and started on Flagyl I.V. and p.o. vancomycin. The patient is feeling much better now. His white count is improving, and had bowel movement x1 today. The patient is able to tolerate p.o. food intake today first time after 2 weeks. No chest pain or palpitation. No fever. No cough. No abdominal pain. No nausea, vomiting, diarrhea. PHYSICAL EXAMINATION: VITAL SIGNS: As follows, blood pressure 142/87, pulse 86, respirations 20, temperature 97.3, saturation 95%. Height 5 feet 8 inches and weight is 192 pounds. GENERAL: On physical exam, Mr. Cho is a 76 years elderly male, moderately built, moderate nourished, not in acute distress. HEENT: Pupils normal, reactive to light and accommodation. Conjunctivae pink. Sclerae anicteric. Tongue is moist. Trachea is midline. LUNGS: Symmetric on both sides. Bilateral breath sounds present. Clear on auscultation. CARDIOVASCULAR: [place] at the fifth intercostal space, midclavicular line. S1 and S2 audible. No murmur or gallop. ABDOMEN: Normal in appearance, soft, tympanic. No guarding, no rigidity. No hepatosplenomegaly. CENTRAL NERVOUS SYSTEMS: The patient is alert, awake, oriented x3. Nonfocal neuro examination. Cranial nerves II through XII grossly intact. Sensory and motor system is within normal limits. EXTREMITIES: No cyanosis, no clubbing, no edema. CURRENT MEDICATIONS: Include as follows, hydralazine 25 mg p.o. b.i.d., Flagyl 500 mg IV q. 8 hours, Flomax 0.4 mg daily, Florastor 250 mg p.o. b.i.d., multivitamin 1 tablet daily, Lasix 20 mg p.o. daily, Lopid 600 mg p.o. at bedtime, Maalox, Pepto-Bismol, Proscar 5 mg p.o. daily, Protonix 40 mg p.o. daily, Questran 4 g p.o. b.i.d., IV fluids normal saline at 60 mL per hour, Tylenol and vancomycin 250 mg p.o. q. 6 hours, enalapril 10 mg daily, Zemplar 2 mcg 3 times a week, and allopurinol 100 mg p.o. daily. LABORATORY DATA: Include as follows, as of 03/14/2017, WBC 8.9, hemoglobin 9.9, hematocrit is 30.8, platelets 314. Sodium 128, potassium 3.2, chloride 95, CO2 of 24, BUN 31, creatinine is 4, glucose 125, calcium 7.1. ASSESSMENT AND PLAN: In summary, Mr. Cho is a 76 years elderly male with a past medical history significant for longstanding hypertension, arthritis, end-stage renal disease, benign prostatic hypertrophy, recurrent urinary tract infection, with loose bowel movement and stool for C. diff toxin is positive, on Flagyl and vancomycin. 1. End-stage renal disease. Continue hemodialysis 3 times a week, Monday, Monday, and Monday for now, and we will switch it to TTS when patient is ready to be discharged. 2. Clostridium difficile colitis. 3. Hypertension. 4. Anemia secondary to renal failure. We will check iron, TIBC, ferritin level. Dialysis tomorrow, and also we will continue Epogen during hemodialysis and Zemplar. We will check phosphorus level in a.m. We will follow with you. Thank you for allowing me to participate in your patient's care. Emir Kirk MD
[2017-03-15] MEDS: Bismuth Subsalicylate 262 mg Chew Tab PO SCH ×4 (04:00→20:25)
[2017-03-15] MEDS: Sodium Chloride 0.9% 1,000 ML IV SCH (06:00)
[2017-03-15] MEDS: metroNIDAZOLE IV 500 mg/100 ml 500 MG/100 ML BAG IVPB SCH ×3 (06:24→21:31)
[2017-03-15] MEDS: Vancomycin 125 MG/5 ML SOLN (ORAL/RECTAL) PO SCH ×3 (06:24→17:11)
[2017-03-15 08:06] LABS: CALCIUM 7.3 mg/dl (8.6-10.4); MAGNESIUM 1.5 mg/dL (1.6-2.3); POTASSIUM 3.6 mmol/L (3.6-5.2)
[2017-03-15] MEDS ORDERED: Epoetin Alfa 10,000 unit/ml Dialysis SC SCH (09:00)
[2017-03-15] MEDS: Multiple Vitamins Tab PO SCH (10:33)
[2017-03-15] MEDS: Saccharomyces Boulardi 250 mg Cap PO SCH ×2 (10:33→17:11)
[2017-03-15] MEDS: Pantoprazole 40 mg EC Tab PO SCH (10:34)
[2017-03-15] MEDS: Cholestyramine 4 gm/Pkt UD PO SCH ×4 (10:34→20:24)
--- NOTE | 2017-03-15 12:29 | CP.PCM.PN ---
Subjective - Date & Time of Evaluation Date of Evaluation: 03/15/17 Time of Evaluation: 12:29 - Subjective Subjective: pt was seen and examined during hd, follow up consult is dictated #[id number] Objective - Vital Signs/Intake and Output Vital Signs (last 24 hours): Temp Pulse Resp BP Pulse Ox 97.6 F 95 H 24 130/82 97 03/15/17 09:35 03/15/17 10:30 03/15/17 11:00 03/15/17 11:00 03/15/17 09:45 Intake and Output: 03/15/17 03/15/17 06:59 18:59 Intake Total 980 460 Output Total 2 Balance 980 458 - Medications Medications: Current Medications Acetaminophen (Tylenol 325mg Tab) 650 mg PO Q4H PRN PRN Reason: Fever >100.4 F Al Hydrox/Mg Hydrox/Simethicone (Maalox 30 Ml) 30 ml PO Q4H PRN PRN Reason: Heartburn Allopurinol (Zyloprim) 100 mg PO DAILY [facility] Last Admin: 03/15/17 10:34 Dose: Not Given Bismuth Subsalicylate (Pepto Bismol) 262 mg PO Q4 [facility] Last Admin: 03/15/17 08:30 Dose: 262 mg Cholestyramine Resin (Questran) 4 gm PO BID [facility] Last Admin: 03/15/17 10:34 Dose: Not Given Enalapril Maleate (Vasotec) 10 mg PO DAILY [facility] Last Admin: 03/15/17 10:34 Dose: Not Given Epoetin Kyle (Procrit) 10,000 unit IV MWF [facility] Stop: 03/27/17 09:01 Finasteride (Proscar) 5 mg PO DAILY [facility] Last Admin: 03/15/17 10:34 Dose: Not Given Furosemide (Lasix) 20 mg PO DAILY [facility] Last Admin: 03/15/17 10:33 Dose: Not Given Gemfibrozil (Lopid) 600 mg PO HS [facility] Last Admin: 03/14/17 21:30 Dose: 600 mg Hydralazine HCl (Apresoline) 25 mg PO BID [facility] Last Admin: 03/15/17 10:33 Dose: Not Given Metronidazole (Flagyl) 500 mg in 100 mls @ 100 mls/hr IVPB Q8 [facility] Last Admin: 03/15/17 06:24 Dose: 100 mls/hr Multivitamins (Hexavitamin) 1 tab PO DAILY [facility] Last Admin: 03/15/17 10:33 Dose: Not Given Pantoprazole Sodium (Protonix Ec Tab) 40 mg PO DAILY [facility] Last Admin: 03/15/17 10:34 Dose: Not Given Paricalcitol (Zemplar) 2 mcg IV MWF [facility] Stop: 03/24/17 09:01 Last Admin: 03/13/17 18:24 Dose: 2 mcg Saccharomyces Boulardii (Florastor) 250 mg PO BID [facility] Last Admin: 03/15/17 10:33 Dose: Not Given Tamsulosin HCl (Flomax) 0.4 mg PO DAILY [facility] Last Admin: 03/15/17 10:33 Dose: Not Given Vancomycin HCl (Vancocin (Oral Or Rectal Use)) 250 mg PO Q6H [facility] Last Admin: 03/15/17 06:24 Dose: 250 mg - Labs Labs: 03/14/17 12:14 03/15/17 07:25 APTT 29 SECONDS (21-34) 03/13/17 08:38
[2017-03-15] MEDS: Epoetin Alfa 10,000 unit/ml Dialysis IV SCH (12:47)
[2017-03-15] MEDS: Paricalcitol 2 mcg/ml Inj IV SCH (12:48)
--- NOTE | 2017-03-15 13:24 | CP.PCM.PN ---
Subjective - Date & Time of Evaluation Date of Evaluation: 03/15/17 Time of Evaluation: 13:22 - Subjective Subjective: weak.loose motion. Objective - Vital Signs/Intake and Output Vital Signs (last 24 hours): Temp Pulse Resp BP Pulse Ox 97.6 F 95 H 24 130/82 97 03/15/17 09:35 03/15/17 10:30 03/15/17 11:00 03/15/17 11:00 03/15/17 09:45 Intake and Output: 03/15/17 03/15/17 06:59 18:59 Intake Total 980 460 Output Total 2 Balance 980 458 - Medications Medications: Current Medications Acetaminophen (Tylenol 325mg Tab) 650 mg PO Q4H PRN PRN Reason: Fever >100.4 F Al Hydrox/Mg Hydrox/Simethicone (Maalox 30 Ml) 30 ml PO Q4H PRN PRN Reason: Heartburn Allopurinol (Zyloprim) 100 mg PO DAILY [facility] Last Admin: 03/15/17 10:34 Dose: Not Given Bismuth Subsalicylate (Pepto Bismol) 262 mg PO Q4 [facility] Last Admin: 03/15/17 08:30 Dose: 262 mg Cholestyramine Resin (Questran) 4 gm PO BID [facility] Last Admin: 03/15/17 10:34 Dose: Not Given Enalapril Maleate (Vasotec) 10 mg PO DAILY [facility] Last Admin: 03/15/17 10:34 Dose: Not Given Epoetin Kyle (Procrit) 10,000 unit [place] [facility] [place]: 03/27/17 09:01 Last Admin: 03/15/17 12:47 Dose: 10,000 unit Finasteride (Proscar) 5 mg PO DAILY [facility] Last Admin: 03/15/17 10:34 Dose: Not Given Furosemide (Lasix) 20 mg PO DAILY [facility] Last Admin: 03/15/17 10:33 Dose: Not Given Gemfibrozil (Lopid) 600 mg PO HS [facility] Last Admin: 03/14/17 21:30 Dose: 600 mg Heparin Sodium (Porcine) (Heparin) 3,300 units IVP MWF [facility] Stop: 03/27/17 09:01 Hydralazine HCl (Apresoline) 25 mg PO BID [facility] Last Admin: 03/15/17 10:33 Dose: Not Given Metronidazole (Flagyl) 500 mg in 100 mls @ 100 mls/hr IVPB Q8 [facility] Last Admin: 03/15/17 06:24 Dose: 100 mls/hr Multivitamins (Hexavitamin) 1 tab PO DAILY [facility] Last Admin: 03/15/17 10:33 Dose: Not Given Pantoprazole Sodium (Protonix Ec Tab) 40 mg PO DAILY [facility] Last Admin: 03/15/17 10:34 Dose: Not Given Paricalcitol (Zemplar) 2 mcg IV MWF [facility] Stop: 03/24/17 09:01 Last Admin: 03/15/17 12:48 Dose: 2 mcg Saccharomyces Boulardii (Florastor) 250 mg PO BID [facility] Last Admin: 03/15/17 10:33 Dose: Not Given Tamsulosin HCl (Flomax) 0.4 mg PO DAILY [facility] Last Admin: 03/15/17 10:33 Dose: Not Given Vancomycin HCl (Vancocin (Oral Or Rectal Use)) 250 mg PO Q6H [facility] Last Admin: 03/15/17 06:24 Dose: 250 mg - Labs Labs: 03/14/17 12:14 03/15/17 07:25 APTT 29 SECONDS (21-34) 03/13/17 08:38 - Constitutional Appears: In Acute Distress, Chronically Ill - Eye Exam Eye Exam: Normal appearance - Neck Exam Neck Exam: Normal Inspection - Respiratory Exam Respiratory Exam: Clear to Ausculation Bilateral - Cardiovascular Exam Cardiovascular Exam: REGULAR RHYTHM - GI/Abdominal Exam GI & Abdominal Exam: Soft - Extremities Exam Extremities Exam: absent: Pedal Edema - Neurological Exam Neurological Exam: Alert, Oriented x3 Assessment and Plan - Assessment and Plan (Free Text) Assessment: better.afebrile.wbc is normal.ct same rx.
[2017-03-15 15:35] LABS: INR 1.2
--- NOTE | 2017-03-15 15:46 | CP.PCM.PN ---
Subjective - Date & Time of Evaluation Date of Evaluation: 03/15/17 Time of Evaluation: 15:00 - Subjective Subjective: Patient seen at bedside , awake, alert, ox3, c/o diarrhea 7 time already , watery , unable to hold BM due to diarrhea Objective - Vital Signs/Intake and Output Vital Signs (last 24 hours): Temp Pulse Resp BP Pulse Ox 97.6 F 108 H 24 151/69 H 97 03/15/17 09:35 03/15/17 14:46 03/15/17 11:00 03/15/17 14:46 03/15/17 09:45 Intake and Output: 03/15/17 03/15/17 06:59 18:59 Intake Total 980 460 Output Total 2 Balance 980 458 - Medications Medications: Current Medications Acetaminophen (Tylenol 325mg Tab) 650 mg PO Q4H PRN PRN Reason: Fever >100.4 F Al Hydrox/Mg Hydrox/Simethicone (Maalox 30 Ml) 30 ml PO Q4H PRN PRN Reason: Heartburn Allopurinol (Zyloprim) 100 mg PO DAILY [facility] Last Admin: 03/15/17 10:34 Dose: Not Given Bismuth Subsalicylate (Pepto Bismol) 262 mg PO Q4 [facility] Last Admin: 03/15/17 08:30 Dose: 262 mg Cholestyramine Resin (Questran) 4 gm PO BID [facility] Last Admin: 03/15/17 10:34 Dose: Not Given Enalapril Maleate (Vasotec) 10 mg PO DAILY [facility] Last Admin: 03/15/17 10:34 Dose: Not Given Epoetin Kyle (Procrit) 10,000 unit IV [facility] [place] Stop: 03/27/17 09:01 Last Admin: 03/15/17 12:47 Dose: 10,000 unit Finasteride (Proscar) 5 mg PO DAILY [facility] Last Admin: 03/15/17 10:34 Dose: Not Given Furosemide (Lasix) 20 mg PO DAILY [facility] Last Admin: 03/15/17 10:33 Dose: Not Given Gemfibrozil (Lopid) 600 mg PO HS [facility] Last Admin: 03/14/17 21:30 Dose: 600 mg Heparin Sodium (Porcine) (Heparin) 3,300 units IVP [facility] Stop: 03/27/17 09:01 Last Admin: 03/15/17 13:41 Dose: 3,300 units Hydralazine HCl (Apresoline) 25 mg PO BID [facility] Last Admin: 03/15/17 10:33 Dose: Not Given Metronidazole (Flagyl) 500 mg in 100 mls @ 100 mls/hr IVPB Q8 [facility] Last Admin: 03/15/17 14:34 Dose: 100 mls/hr Multivitamins (Hexavitamin) 1 tab PO DAILY [facility] Last Admin: 03/15/17 10:33 Dose: Not Given Pantoprazole Sodium (Protonix Ec Tab) 40 mg PO DAILY [facility] Last Admin: 03/15/17 10:34 Dose: Not Given Paricalcitol (Zemplar) 2 mcg IV MWF [facility] Stop: 03/24/17 09:01 Last Admin: 03/15/17 12:48 Dose: 2 mcg Saccharomyces Boulardii (Florastor) 250 mg PO BID [facility] Last Admin: 03/15/17 10:33 Dose: Not Given Tamsulosin HCl (Flomax) 0.4 mg PO DAILY [facility] Last Admin: 03/15/17 10:33 Dose: Not Given Vancomycin HCl (Vancocin (Oral Or Rectal Use)) 250 mg PO Q6H [facility] Last Admin: 03/15/17 14:34 Dose: 250 mg - Labs Labs: 03/14/17 12:14 03/15/17 07:25 PT 12.9 SECONDS (9.7-12.2) H 03/15/17 13:24 INR 1.2 03/15/17 13:24 APTT 29 SECONDS (21-34) 03/13/17 08:38 - Constitutional Appears: Well, No Acute Distress - Respiratory Exam Respiratory Exam: Clear to Ausculation Bilateral, NORMAL BREATHING PATTERN - Cardiovascular Exam Cardiovascular Exam: REGULAR RHYTHM, +S1, +S2 - GI/Abdominal Exam GI & Abdominal Exam: Soft (+ diarrhea ) - Neurological Exam Neurological Exam: Alert, Awake, Oriented x3 Assessment and Plan - Assessment and Plan (Free Text) Assessment: A/P 76 yr old male HTN, Hypercholesterolemia, Hyperlipidemia, End Stage Renal Disease, Chronic Kidney Disease, admitted for abdominal pain/ diarrhea pt still having diarrhea 7-8 times on flagyl and vanco will continue to monitor The above plan discussed with Dr. Cole and agrees
--- NOTE | 2017-03-15 21:19 | CP.PCM.PN ---
Subjective - Date & Time of Evaluation Date of Evaluation: 03/15/17 Time of Evaluation: 17:30 - Subjective Subjective: Patient seen and examined at bedside.Pt is doing better, wbc count trending down , has decreased diarrhea, dec abdominal pain, no fever. Hb is 9.2 Objective - Vital Signs/Intake and Output Vital Signs (last 24 hours): Temp Pulse Resp BP Pulse Ox 97.0 F L 101 H 20 161/85 H 96 03/15/17 16:41 03/15/17 16:41 03/15/17 16:41 03/15/17 16:41 03/15/17 16:41 Intake and Output: 03/15/17 03/16/17 18:59 06:59 Intake Total 460 Output Total 2 Balance 458 - Medications Medications: Current Medications Acetaminophen (Tylenol 325mg Tab) 650 mg PO Q4H PRN PRN Reason: Fever >100.4 F Al Hydrox/Mg Hydrox/Simethicone (Maalox 30 Ml) 30 ml PO Q4H PRN PRN Reason: Heartburn Allopurinol (Zyloprim) [address] [facility] Last Admin: 03/15/17 10:34 Dose: Not Given Bismuth Subsalicylate (Pepto Bismol) [address] [facility] Last Admin: 03/15/17 20:25 Dose: 262 mg Cholestyramine Resin (Questran) [address] [facility] Last Admin: 03/15/17 20:24 Dose: 4 gm Enalapril Maleate (Vasotec) [address] [facility] Last Admin: 03/15/17 10:34 Dose: Not Given Epoetin Kyle (Procrit) 10,000 unit IV [facility] [place] Stop: 03/27/17 09:01 Last Admin: 03/15/17 12:47 Dose: 10,000 unit Finasteride (Proscar) [address] [facility] Last Admin: 03/15/17 10:34 Dose: Not Given Furosemide (Lasix) [address] [facility] Last Admin: 03/15/17 10:33 Dose: Not Given Gemfibrozil (Lopid) [address] [facility] Last Admin: 03/14/17 21:30 Dose: 600 mg Heparin Sodium (Porcine) (Heparin) 3,300 units IVP [facility] [place] Stop: 03/27/17 09:01 Last Admin: 03/15/17 13:41 Dose: 3,300 units Hydralazine HCl (Apresoline) [address] [facility] Last Admin: 03/15/17 17:11 Dose: 25 mg Metronidazole (Flagyl) 500 mg in 100 mls @ 100 mls/hr IVPB Q8 [facility] Last Admin: 03/15/17 14:34 Dose: 100 mls/hr Multivitamins (Hexavitamin) [address] [facility] Last Admin: 03/15/17 10:33 Dose: Not Given Pantoprazole Sodium (Protonix Ec Tab) [address] [facility] Last Admin: 03/15/17 10:34 Dose: Not Given Paricalcitol (Zemplar) [address] [facility] Stop: 03/24/17 09:01 Last Admin: 03/15/17 12:48 Dose: 2 mcg Saccharomyces Boulardii (Florastor) [address] [facility] Last Admin: 03/15/17 17:11 Dose: 250 mg Tamsulosin HCl (Flomax) 0.[address] [facility] Last Admin: 03/15/17 10:33 Dose: Not Given Vancomycin HCl (Vancocin (Oral Or Rectal Use)) [address] [facility] Last Admin: 03/15/17 17:11 Dose: 250 mg - Labs Labs: 03/14/17 12:14 03/15/17 07:25 PT 12.9 SECONDS (9.7-12.2) H 03/15/17 13:24 INR 1.2 03/15/17 13:24 APTT 29 SECONDS (21-34) 03/13/17 08:38 - Constitutional Appears: No Acute Distress - Head Exam Head Exam: ATRAUMATIC, NORMAL INSPECTION, NORMOCEPHALIC - Eye Exam Eye Exam: EOMI, Normal appearance, PERRL Pupil Exam: NORMAL ACCOMODATION, PERRL - Respiratory Exam Respiratory Exam: Decreased Breath Sounds, Clear to Ausculation Bilateral - Cardiovascular Exam Cardiovascular Exam: REGULAR RHYTHM, +S1, +S2. absent: Murmur - GI/Abdominal Exam GI & Abdominal Exam: Soft, Hyperactive Bowel Sounds. absent: Tenderness Assessment and Plan (1) Abdominal tenderness, LLQ (left lower quadrant) Status: Acute (2) Acute diarrhea Status: Acute (3) C. difficile diarrhea Status: Acute (4) CKD (chronic kidney disease) Status: Acute - Assessment and Plan (Free Text) Plan: A/P 76 yr old male HTN, Hypercholesterolemia, Hyperlipidemia, End Stage Renal Disease, Chronic Kidney Disease, admitted for abdominal pain/ diarrhea pt still having diarrhea 7-8 times on flagyl and vanco will continue to monitor
[2017-03-16] MEDS: Vancomycin 125 MG/5 ML SOLN (ORAL/RECTAL) PO SCH ×4 (00:45→17:21)
[2017-03-16] MEDS: Bismuth Subsalicylate 262 mg Chew Tab PO SCH ×6 (00:45→20:47)
--- NOTE | 2017-03-16 02:05 | PN ---
FOLLOWUP RENAL CONSULTATION LOCATION: The patient is located in room 557, bed A. REQUESTING PHYSICIAN: DR. Yeison Cole MD REASON FOR FOLLOWUP: End-stage renal disease and for continuation of hemodialysis. HISTORY OF PRESENT ILLNESS: Mr. Cho is a 76 years old elderly male with a past medical history significant for longstanding hypertension, end-stage renal disease, BPH, osteoarthritis, multiple admissions to the hospital with multiple symptoms and recurrent UTI, who was recently discharged to home after prolonged hospitalization and prison placement, now admitted with severe diarrhea for 2-3 weeks. The patient was found to have C. diff colitis and being treated for C. diff colitis with IV Flagyl and p.o. vancomycin. The patient was seen and examined during dialysis this morning. Ultrafiltration goal is about 2.3 liters. The patient complains of loose bowel movements x2 to 3 this morning. No abdominal pain. No nausea, vomiting or diarrhea. No chest pain or palpitation. No fever. No cough. PHYSICAL EXAMINATION: VITAL SIGNS: Blood pressure 161/93, pulse 86, respirations 22 and temperature 97.6. Height 5 feet 8 inches and weight is 192 pounds. GENERAL: Mr. Cho is 76 years old elderly male, well-built, well-nourished, not in distress. HEENT: Pupils normal, reactive to light and accommodation. Conjunctivae pink. Sclerae anicteric. Tongue is moist and trachea is midline. LUNGS: Symmetric on both sides. Bilateral breath sounds present. Clear on auscultation. CARDIOVASCULAR SYSTEM: S1 and S2 audible. No murmur or gallop. ABDOMEN: Normal in appearance, soft, tympanic. No hepatosplenomegaly. Mild left lower quadrant tenderness present. No guarding. No rigidity. CENTRAL NERVOUS SYSTEM: The patient is alert, awake, oriented x3. Nonfocal neuro examination. Cranial nerves II through XII grossly intact. Sensory and motor system are within normal limits. EXTREMITIES: No cyanosis, no clubbing, no edema. LABORATORY DATA: Include as follows as of 03/15/2017; sodium 130, potassium 3.6, chloride 100, CO2 of 21, BUN 23, creatinine 4.2, glucose 92, calcium 7.3, magnesium 1.5, PT 12.9, INR 1.2. Accu-Cheks 136. ASSESSMENT AND PLAN: In summary, Mr. Cho is a 76 years old elderly male with history of hypertension, benign prostatic hypertrophy, end-stage renal disease, osteoarthritis, recurrent urinary tract infection with multiple admissions in the past to prison and [facility] who was recently discharged home after initiation of hemodialysis about 2 months ago, now the patient was admitted with loose bowel movement for 2-3 weeks. 1. End-stage renal disease. Continue hemodialysis three times a week Monday, Monday, Monday. 2. Clostridium difficile colitis. 3. Hypertension. 4. Benign prostatic hypertrophy. Continue his current medications, Flagyl and p.o. vancomycin. Continue Flomax, continue Epogen, Renvela and Zemplar. We will follow with you. Thank you for allowing me to participate in your patient's care. Emir Kirk MD
[2017-03-16] MEDS ORDERED: Magnesium Sulfate 1 gm in D5W 1 GM/100 ML BAG IVPB ONE (02:49)
[2017-03-16] MEDS: metroNIDAZOLE IV 500 mg/100 ml 500 MG/100 ML BAG IVPB SCH ×3 (05:02→21:46)
[2017-03-16] MEDS: Sodium Chloride 0.9% 1,000 ML IV SCH (08:48)
[2017-03-16] MEDS: Cholestyramine 4 gm/Pkt UD PO SCH ×2 (08:50→21:47)
[2017-03-16] MEDS: Multiple Vitamins Tab PO SCH (09:45)
[2017-03-16] MEDS: Pantoprazole 40 mg EC Tab PO SCH (09:45)
[2017-03-16] MEDS: Saccharomyces Boulardi 250 mg Cap PO SCH ×2 (09:46→17:23)
--- NOTE | 2017-03-16 12:28 | CP.PCM.PN ---
Subjective - Date & Time of Evaluation Date of Evaluation: 03/16/17 Time of Evaluation: 09:45 - Subjective Subjective: [employer] NOTES Patient seen today lethargic, arousable, states feels very weak, denies any abdominal pain, still c/o diarrhea , move all extremities Objective - Vital Signs/Intake and Output Vital Signs (last 24 hours): Temp Pulse Resp BP Pulse Ox 98.7 F 100 H 20 124/67 96 03/16/17 08:00 03/16/17 08:00 03/16/17 08:00 03/16/17 09:46 03/16/17 08:00 Intake and Output: 03/16/17 03/16/17 06:59 18:59 Intake Total 1860 Output Total 350 Balance 1510 - Medications Medications: Current Medications Acetaminophen (Tylenol 325mg Tab) 650 mg PO Q4H PRN PRN Reason: Fever >100.4 F Al Hydrox/Mg Hydrox/Simethicone (Maalox 30 Ml) 30 ml PO Q4H PRN PRN Reason: Heartburn Allopurinol (Zyloprim) 100 mg PO DAILY [facility] Last Admin: 03/16/17 09:45 Dose: 100 mg Bismuth Subsalicylate (Pepto Bismol) 262 mg PO Q4 [facility] Last Admin: 03/16/17 08:50 Dose: 262 mg Cholestyramine Resin (Questran) 4 gm PO BID@0900,2100 [facility] Last Admin: 03/16/17 08:50 Dose: 4 gm Enalapril Maleate (Vasotec) 10 mg PO DAILY [facility] Last Admin: 03/16/17 09:46 Dose: Not Given Epoetin Kyle (Procrit) 10,000 unit IV [facility] Stop: 03/27/17 09:01 Last Admin: 03/15/17 12:47 Dose: 10,000 unit Finasteride (Proscar) 5 mg PO DAILY [facility] Last Admin: 03/16/17 09:46 Dose: 5 mg Furosemide (Lasix) 20 mg PO DAILY [facility] Last Admin: 03/16/17 09:45 Dose: 20 mg Gemfibrozil (Lopid) 600 mg PO HS [facility] Last Admin: 03/15/17 21:31 Dose: 600 mg Heparin Sodium (Porcine) (Heparin) 3,300 units IVP [facility] Stop: 03/27/17 09:01 Last Admin: 03/15/17 13:41 Dose: 3,300 units Hydralazine HCl (Apresoline) 25 mg PO BID [facility] Last Admin: 03/16/17 09:46 Dose: Not Given Metronidazole (Flagyl) 500 mg in 100 mls @ 100 mls/hr IVPB Q8 [facility] Last Admin: 03/16/17 05:02 Dose: 100 mls/hr Multivitamins (Hexavitamin) 1 tab PO DAILY [facility] Last Admin: 03/16/17 09:45 Dose: 1 tab Pantoprazole Sodium (Protonix Ec Tab) 40 mg PO DAILY [facility] Last Admin: 03/16/17 09:45 Dose: 40 mg Paricalcitol (Zemplar) 2 mcg IV MWF [facility] Stop: 03/24/17 09:01 Last Admin: 03/15/17 12:48 Dose: 2 mcg Saccharomyces Boulardii (Florastor) 250 mg PO BID [facility] Last Admin: 03/16/17 09:46 Dose: 250 mg Tamsulosin HCl (Flomax) 0.4 mg PO DAILY [facility] Last Admin: 03/16/17 09:46 Dose: 0.4 mg Vancomycin HCl (Vancocin (Oral Or Rectal Use)) 250 mg PO Q6H [facility] Last Admin: 03/16/17 05:25 Dose: 250 mg - Labs Labs: 03/14/17 12:14 03/15/17 07:25 PT 12.9 SECONDS (9.7-12.2) H 03/15/17 13:24 INR 1.2 03/15/17 13:24 APTT 29 SECONDS (21-34) 03/13/17 08:38 - Constitutional Appears: No Acute Distress - Respiratory Exam Respiratory Exam: Clear to Ausculation Bilateral, NORMAL BREATHING PATTERN - Cardiovascular Exam Cardiovascular Exam: REGULAR RHYTHM, +S1, +S2 - GI/Abdominal Exam GI & Abdominal Exam: Soft (+ diarrhea ) - Neurological Exam Neurological Exam: Altered (lathargic ) Assessment and Plan - Assessment and Plan (Free Text) Assessment: A/P 76 yr old male admitted for abdominal pain/ diarrhea , + stool for c dif on vancomycin and flagyl and Dr. Truong on board today patient lethargic, arousable, very weak , + diarrhea will do neuro check Q 4hrs and monitor electrolytes today
--- NOTE | 2017-03-16 13:29 | CP.PCM.PN ---
Subjective - Date & Time of Evaluation Date of Evaluation: 03/16/17 Time of Evaluation: 13:28 - Subjective Subjective: better.diarrea less.afebrile. Objective - Vital Signs/Intake and Output Vital Signs (last 24 hours): Temp Pulse Resp BP Pulse Ox 98.7 F 100 H 20 124/67 96 03/16/17 08:00 03/16/17 08:00 03/16/17 08:00 03/16/17 09:46 03/16/17 08:00 Intake and Output: 03/16/17 03/16/17 06:59 18:59 Intake Total 1860 Output Total 350 Balance 1510 - Medications Medications: Current Medications Acetaminophen (Tylenol 325mg Tab) 650 mg PO Q4H PRN PRN Reason: Fever >100.4 F Al Hydrox/Mg Hydrox/Simethicone (Maalox 30 Ml) 30 ml PO Q4H PRN PRN Reason: Heartburn Allopurinol (Zyloprim) 100 mg PO DAILY [facility] Last Admin: 03/16/17 09:45 Dose: 100 mg Bismuth Subsalicylate (Pepto Bismol) 262 mg PO Q4 [facility] Last Admin: 03/16/17 12:35 Dose: Not Given Cholestyramine Resin (Questran) 4 gm PO BID@0900,2100 [facility] Last Admin: 03/16/17 08:50 Dose: 4 gm Enalapril Maleate (Vasotec) 10 mg PO DAILY [facility] Last Admin: 03/16/17 09:46 Dose: Not Given Epoetin Kyle (Procrit) 10,000 unit IV [place] Stop: 03/27/17 09:01 Last Admin: 03/15/17 12:47 Dose: 10,000 unit Finasteride (Proscar) 5 mg PO DAILY [facility] Last Admin: 03/16/17 09:46 Dose: 5 mg Furosemide (Lasix) 20 mg PO DAILY [facility] Last Admin: 03/16/17 09:45 Dose: 20 mg Gemfibrozil (Lopid) 600 mg PO HS [facility] Last Admin: 03/15/17 21:31 Dose: 600 mg Heparin Sodium (Porcine) (Heparin) 3,300 [facility] Stop: 03/27/17 09:01 Last Admin: 03/15/17 13:41 Dose: 3,300 units Hydralazine HCl (Apresoline) 25 mg PO BID [facility] Last Admin: 03/16/17 09:46 Dose: Not Given Metronidazole (Flagyl) 500 mg in 100 mls @ 100 mls/hr IVPB Q8 [facility] Last Admin: 03/16/17 05:02 Dose: 100 mls/hr Multivitamins (Hexavitamin) 1 tab PO DAILY [facility] Last Admin: 03/16/17 09:45 Dose: 1 tab Pantoprazole Sodium (Protonix Ec Tab) 40 mg PO DAILY [facility] Last Admin: 03/16/17 09:45 Dose: 40 mg Paricalcitol (Zemplar) 2 mcg IV MWF [facility] Stop: 03/24/17 09:01 Last Admin: 03/15/17 12:48 Dose: 2 mcg Saccharomyces Boulardii (Florastor) 250 mg PO BID [facility] Last Admin: 03/16/17 09:46 Dose: 250 mg Tamsulosin HCl (Flomax) 0.4 mg PO DAILY [facility] Last Admin: 03/16/17 09:46 Dose: 0.4 mg Vancomycin HCl (Vancocin (Oral Or Rectal Use)) 250 mg PO Q6H [facility] Last Admin: 03/16/17 12:35 Dose: 250 mg - Labs Labs: 03/14/17 12:14 03/15/17 07:25 PT 12.9 SECONDS (9.7-12.2) H 03/15/17 13:24 INR 1.2 03/15/17 13:24 APTT 29 SECONDS (21-34) 03/13/17 08:38 - Constitutional Appears: No Acute Distress, Chronically Ill - Head Exam Head Exam: NORMOCEPHALIC - ENT Exam ENT Exam: Mucous Membranes Moist - Respiratory Exam Respiratory Exam: Clear to Ausculation Bilateral - Cardiovascular Exam Cardiovascular Exam: REGULAR RHYTHM - GI/Abdominal Exam GI & Abdominal Exam: Soft - Extremities Exam Extremities Exam: absent: Pedal Edema - Neurological Exam Neurological Exam: Alert, Oriented x3 Assessment and Plan - Assessment and Plan (Free Text) Assessment: htn,well controlled.ckd.wbc normal.
[2017-03-16 14:30] LABS: CALCIUM 7.5 mg/dl (8.6-10.4); POTASSIUM 3.8 mmol/L (3.6-5.2)
--- NOTE | 2017-03-16 15:10 | CP.PCM.PN ---
Subjective - Date & Time of Evaluation Date of Evaluation: 03/16/17 Time of Evaluation: 15:08 - Subjective Subjective: Patient denies nausea, vomiting, abdominal pain. Nurses report two stools so far today. Objective - Vital Signs/Intake and Output Vital Signs (last 24 hours): Temp Pulse Resp BP Pulse Ox 98.7 F 100 H 20 124/67 96 03/16/17 08:00 03/16/17 08:00 03/16/17 08:00 03/16/17 09:46 03/16/17 08:00 Intake and Output: 03/16/17 03/16/17 06:59 18:59 Intake Total 1860 Output Total 350 Balance 1510 - Medications Medications: Current Medications Acetaminophen (Tylenol 325mg Tab) 650 mg PO Q4H PRN PRN Reason: Fever >100.4 F Al Hydrox/Mg Hydrox/Simethicone (Maalox 30 Ml) 30 ml PO Q4H PRN PRN Reason: Heartburn Allopurinol (Zyloprim) 100 mg PO DAILY [facility] Last Admin: 03/16/17 09:45 Dose: 100 mg Bismuth Subsalicylate (Pepto Bismol) 262 mg PO Q4 [facility] Last Admin: 03/16/17 12:35 Dose: Not Given Cholestyramine Resin (Questran) 4 gm PO BID@0900,2100 [facility] Last Admin: 03/16/17 08:50 Dose: 4 gm Enalapril Maleate (Vasotec) 10 mg PO DAILY [facility] Last Admin: 03/16/17 09:46 Dose: Not Given Epoetin Kyle (Procrit) 10,000 unit IV [facility] [place] Stop: 03/27/17 09:01 Last Admin: 03/15/17 12:47 Dose: 10,000 unit Finasteride (Proscar) 5 mg PO DAILY [facility] Last Admin: 03/16/17 09:46 Dose: 5 mg Furosemide (Lasix) 20 mg PO DAILY [facility] Last Admin: 03/16/17 09:45 Dose: 20 mg Gemfibrozil (Lopid) 600 mg PO HS [facility] Last Admin: 03/15/17 21:31 Dose: 600 mg Heparin Sodium (Porcine) (Heparin) 3,300 units IVP [facility] [place] Stop: 03/27/17 09:01 Last Admin: 03/15/17 13:41 Dose: 3,300 units Hydralazine HCl (Apresoline) 25 mg PO BID [facility] Last Admin: 03/16/17 09:46 Dose: Not Given Metronidazole (Flagyl) 500 mg in 100 mls @ 100 mls/hr IVPB Q8 [facility] Last Admin: 03/16/17 13:43 Dose: 100 mls/hr Multivitamins (Hexavitamin) 1 tab PO DAILY [facility] Last Admin: 03/16/17 09:45 Dose: 1 tab Pantoprazole Sodium (Protonix Ec Tab) 40 mg PO DAILY [facility] Last Admin: 03/16/17 09:45 Dose: 40 mg Paricalcitol (Zemplar) 2 mcg IV MWF [facility] Stop: 03/24/17 09:01 Last Admin: 03/15/17 12:48 Dose: 2 mcg Saccharomyces Boulardii (Florastor) 250 mg PO BID [facility] Last Admin: 03/16/17 09:46 Dose: 250 mg Tamsulosin HCl (Flomax) 0.4 mg PO DAILY [facility] Last Admin: 03/16/17 09:46 Dose: 0.4 mg Vancomycin HCl (Vancocin (Oral Or Rectal Use)) 250 mg PO Q6H [facility] Last Admin: 03/16/17 12:35 Dose: 250 mg - Labs Labs: 03/14/17 12:14 03/16/17 13:51 PT 12.9 SECONDS (9.7-12.2) H 03/15/17 13:24 INR 1.2 03/15/17 13:24 APTT 29 SECONDS (21-34) 03/13/17 08:38 - Constitutional Appears: No Acute Distress - Head Exam Head Exam: ATRAUMATIC, NORMOCEPHALIC - Eye Exam Eye Exam: EOMI, PERRL - Neck Exam Neck Exam: absent: Lymphadenopathy, Thyromegaly - Respiratory Exam Respiratory Exam: NORMAL BREATHING PATTERN. absent: Rales, Rhonchi, Wheezes - Cardiovascular Exam Cardiovascular Exam: REGULAR RHYTHM, +S1, +S2. absent: Gallop, Rubs, Murmur - GI/Abdominal Exam GI & Abdominal Exam: Soft, Normal Bowel Sounds. absent: Tenderness, Mass, Organomegaly - Rectal Exam Rectal Exam: Deferred - Extremities Exam Extremities Exam: absent: Calf Tenderness, Pedal Edema Assessment and Plan (1) C. difficile diarrhea Assessment & Plan: Patient has C difficile, persistent diarrhea. Cholestyramine added to help control the diarrhea. Status: Acute
--- NOTE | 2017-03-16 18:13 | CP.PCM.PN ---
Subjective - Date & Time of Evaluation Date of Evaluation: 03/16/17 Time of Evaluation: 18:13 - Subjective Subjective: pt is seenand examined, follow up consult is dictated #[id number] Objective - Vital Signs/Intake and Output Vital Signs (last 24 hours): Temp Pulse Resp BP Pulse Ox 97.5 F L 80 20 158/76 H 97 03/16/17 15:15 03/16/17 15:15 03/16/17 15:15 03/16/17 15:15 03/16/17 15:15 Intake and Output: 03/16/17 03/16/17 06:59 18:59 Intake Total 1860 1330 Output Total 350 200 Balance 1510 1130 - Medications Medications: Current Medications Acetaminophen (Tylenol 325mg Tab) 650 mg PO Q4H PRN PRN Reason: Fever >100.4 F Al Hydrox/Mg Hydrox/Simethicone (Maalox 30 Ml) 30 ml PO Q4H PRN PRN Reason: Heartburn Allopurinol (Zyloprim) 100 mg PO DAILY [facility] Last Admin: 03/16/17 09:45 Dose: 100 mg Bismuth Subsalicylate (Pepto Bismol) 262 mg PO Q4 [facility] Last Admin: 03/16/17 17:24 Dose: 262 mg Cholestyramine Resin (Questran) 4 gm PO BID@0900,2100 [facility] Last Admin: 03/16/17 08:50 Dose: 4 gm Enalapril Maleate (Vasotec) 10 mg PO DAILY [facility] Last Admin: 03/16/17 09:46 Dose: Not Given Epoetin Kyle (Procrit) 10,[address] [facility] [place] Stop: 03/27/17 09:01 Last Admin: 03/15/17 12:47 Dose: 10,000 unit Finasteride (Proscar) 5 mg PO DAILY [facility] Last Admin: 03/16/17 09:46 Dose: 5 mg Furosemide (Lasix) 20 mg PO DAILY [facility] Last Admin: 03/16/17 09:45 Dose: 20 mg Gemfibrozil (Lopid) 600 mg PO HS [facility] Last Admin: 03/15/17 21:31 Dose: 600 mg Heparin Sodium (Porcine) (Heparin) 3,[address] [facility] [place] Stop: 03/27/17 09:01 Last Admin: 03/15/17 13:41 Dose: 3,300 units Hydralazine HCl (Apresoline) 25 mg PO BID [facility] Last Admin: 03/16/17 17:23 Dose: 25 mg Metronidazole (Flagyl) 500 mg in 100 mls @ 100 mls/hr IVPB Q8 [facility] Last Admin: 03/16/17 13:43 Dose: 100 mls/hr Multivitamins (Hexavitamin) 1 tab PO DAILY [facility] Last Admin: 03/16/17 09:45 Dose: 1 tab Pantoprazole Sodium (Protonix Ec Tab) 40 mg PO DAILY [facility] Last Admin: 03/16/17 09:45 Dose: 40 mg Paricalcitol (Zemplar) 2 mcg IV MWF [facility] Stop: 03/24/17 09:01 Last Admin: 03/15/17 12:48 Dose: 2 mcg Saccharomyces Boulardii (Florastor) 250 mg PO BID [facility] Last Admin: 03/16/17 17:23 Dose: 250 mg Tamsulosin HCl (Flomax) 0.4 mg PO DAILY [facility] Last Admin: 03/16/17 09:46 Dose: 0.4 mg Vancomycin HCl (Vancocin (Oral Or Rectal Use)) 250 mg PO Q6H [facility] Last Admin: 03/16/17 17:21 Dose: 250 mg - Labs Labs: 03/14/17 12:14 03/16/17 13:51 PT 12.9 SECONDS (9.7-12.2) H 03/15/17 13:24 INR 1.2 03/15/17 13:24 APTT 29 SECONDS (21-34) 03/13/17 08:38
--- NOTE | 2017-03-16 21:49 | CARD ---
APPROVED REPORT EKG Measurement Heart [id number] <Conclusion> Normal sinus rhythm Low voltage QRS Left anterior fascicular block Cannot rule out Anterior infarct, age undetermined Abnormal ECG
--- NOTE | 2017-03-16 22:55 | CP.PCM.PN ---
Subjective - Date & Time of Evaluation Date of Evaluation: 03/16/17 Time of Evaluation: 10:00 - Subjective Subjective: Pt seen and evalauted this am, complaining of weakness and lethargy Objective - Vital Signs/Intake and Output Vital Signs (last 24 hours): Temp Pulse Resp BP Pulse Ox 97.5 F L 80 20 158/76 H 97 03/16/17 15:15 03/16/17 15:15 03/16/17 15:15 03/16/17 15:15 03/16/17 15:15 Intake and Output: 03/16/17 03/17/17 18:59 06:59 Intake Total 1330 Output Total 200 200 Balance 1130 -200 - Medications Medications: Current Medications Acetaminophen (Tylenol 325mg Tab) 650 mg PO Q4H PRN PRN Reason: Fever >100.4 F Al Hydrox/Mg Hydrox/Simethicone (Maalox 30 Ml) 30 ml PO Q4H PRN PRN Reason: Heartburn Allopurinol (Zyloprim) 100 mg PO DAILY [facility] Last Admin: 03/16/17 09:45 Dose: 100 mg Bismuth Subsalicylate (Pepto Bismol) 262 mg PO Q4 [facility] Last Admin: 03/16/17 20:47 Dose: Not Given Cholestyramine Resin (Questran) 4 gm PO BID@0900,2100 [facility] Last Admin: 03/16/17 21:47 Dose: 4 gm Enalapril Maleate (Vasotec) 10 mg PO DAILY [facility] Last Admin: 03/16/17 09:46 Dose: Not Given Epoetin Kyle (Procrit) 10,000 unit IV [facility] Stop: 03/27/17 09:01 Last Admin: 03/15/17 12:47 Dose: 10,000 unit Finasteride (Proscar) 5 mg PO DAILY [facility] Last Admin: 03/16/17 09:46 Dose: 5 mg Furosemide (Lasix) 20 mg PO DAILY [facility] Last Admin: 03/16/17 09:45 Dose: 20 mg Gemfibrozil (Lopid) 600 mg PO HS [facility] Last Admin: 03/16/17 21:47 Dose: 600 mg Heparin Sodium (Porcine) (Heparin) 3,300 units IVP [facility] Stop: 03/27/17 09:01 Last Admin: 03/15/17 13:41 Dose: 3,300 units Hydralazine HCl (Apresoline) 25 mg PO BID [facility] Last Admin: 03/16/17 17:23 Dose: 25 mg Metronidazole (Flagyl) 500 mg in 100 mls @ 100 mls/hr IVPB Q8 [facility] Last Admin: 03/16/17 21:46 Dose: 100 mls/hr Multivitamins (Hexavitamin) 1 tab PO DAILY [facility] Last Admin: 03/16/17 09:45 Dose: 1 tab Pantoprazole Sodium (Protonix Ec Tab) 40 mg PO DAILY [facility] Last Admin: 03/16/17 09:45 Dose: 40 mg Paricalcitol (Zemplar) 2 mcg IV MWF [facility] Stop: 03/24/17 09:01 Last Admin: 03/15/17 12:48 Dose: 2 mcg Saccharomyces Boulardii (Florastor) 250 mg PO BID [facility] Last Admin: 03/16/17 17:23 Dose: 250 mg Tamsulosin HCl (Flomax) 0.4 mg PO DAILY [facility] Last Admin: 03/16/17 09:46 Dose: 0.4 mg Vancomycin HCl (Vancocin (Oral Or Rectal Use)) 250 mg PO Q6H [facility] Last Admin: 03/16/17 17:21 Dose: 250 mg - Labs Labs: 03/14/17 12:14 03/16/17 13:51 PT 12.9 SECONDS (9.7-12.2) H 03/15/17 13:24 INR 1.2 03/15/17 13:24 APTT 29 SECONDS (21-34) 03/13/17 08:38 - Constitutional Appears: No Acute Distress - Head Exam Head Exam: ATRAUMATIC, NORMAL INSPECTION, NORMOCEPHALIC - Eye Exam Eye Exam: EOMI, Normal appearance, PERRL Pupil Exam: NORMAL ACCOMODATION, PERRL - ENT Exam ENT Exam: Mucous Membranes Moist - Respiratory Exam Respiratory Exam: Clear to Ausculation Bilateral, NORMAL BREATHING PATTERN - Cardiovascular Exam Cardiovascular Exam: REGULAR RHYTHM, +S1, +S2. absent: Murmur - GI/Abdominal Exam GI & Abdominal Exam: Soft, Normal Bowel Sounds. absent: Tenderness Assessment and Plan (1) Abdominal tenderness, LLQ (left lower quadrant) Status: Acute (2) Acute diarrhea Status: Acute (3) C. difficile diarrhea Status: Acute (4) CKD (chronic kidney disease) Status: Acute
[2017-03-17] MEDS: Vancomycin 125 MG/5 ML SOLN (ORAL/RECTAL) PO SCH ×4 (00:47→17:25)
[2017-03-17] MEDS: Bismuth Subsalicylate 262 mg Chew Tab PO SCH ×7 (00:52→21:44)
--- NOTE | 2017-03-17 03:02 | PN ---
DATE: FOLLOWUP RENAL CONSULTATION LOCATION: The patient is located in room 557, A. REASON FOR FOLLOWUP: Mr. Cho is about 76-year-old elderly male with a past medical history significant for longstanding hypertension, end-stage renal disease, BPH, arthritis, recurrent UTI, who was admitted with chief complaints of severe diarrhea for 2 to 3 weeks and the patient was found to have C. diff colitis, and the patient is on IV Flagyl and p.o. vancomycin. The patient is feeling slightly better, not in distress. Denies any chest pain or palpitation. Denies any fever or cough. The patient claims he had 2 to 3 bowel movements today. PHYSICAL EXAMINATION: VITAL SIGNS: As follows, blood pressure 158/76, pulse 80, respirations 20, temperature 97.5, saturation 97%. Height 5 feet 8 inches, and weight is 192 pounds. GENERAL: Mr. Cho is a 76-year-old elderly male, well-built, well-nourished, not in distress. HEENT: Pupils normal, reactive to light and accommodation. Conjunctivae pink. Sclerae anicteric. Tongue is moist. Trachea is midline. LUNGS: Symmetric on both sides. Bilateral breath sounds present. Clear on auscultation. CARDIOVASCULAR SYSTEM: [place] at the fifth intercostal space, midclavicular line. S1 and S2 audible. No murmur or gallop. ABDOMEN: Normal in appearance, soft, tympanic. No guarding, no rigidity. No hepatosplenomegaly. CENTRAL NERVOUS SYSTEMS: The patient is alert, awake and oriented x3. Nonfocal neuro examination. Cranial nerves II through XII grossly intact. Sensory and motor system is within normal limits. EXTREMITIES: No cyanosis, no clubbing, no edema. CURRENT MEDICATIONS: Include as follows, hydralazine 25 mg p.o. b.i.d., Flagyl 500 mg IV q. 8 hours, Flomax 0.4 mg daily, Florastor 250 mg p.o. b.i.d., heparin to the PermCath , Lasix 20 mg p.o. daily, Lopid 600 mg p.o. at bedtime, Procrit 10,000 units 3 times a week, Monday, Monday and Monday, Protonix 40 mg p.o. daily, Questran, Tylenol, vancomycin 250 mg p.o. q. 6 hours, enalapril 10 mg p.o. daily, Zemplar 2 mcg 3 times a week, and allopurinol 100 mg p.o. daily. LABORATORY DATA: His current laboratory data include as follows; as of 03/16/2017, sodium 129, potassium 3.8, chloride 101, CO2 of 25, BUN 13, creatinine 3.3, glucose 110, calcium 7.5. ASSESSMENT AND PLAN: In summary, Mr. Cho is a 76-year-old elderly male with a history of hypertension, benign prostatic hypertrophy, hyperlipidemia, end-stage renal disease, recurrent urinary tract infection, was admitted with severe diarrhea and found to have his Clostridium difficile toxin positive. 1. End-stage renal disease. Continue hemodialysis 3 times a week, Monday, Monday and Monday, while he is in the hospital. 2. Hypertension. 3. Clostridium difficile colitis. Continue vancomycin and Flagyl, and we will follow with you. Thank you for allowing me to participate in your patient's care. We will schedule for hemodialysis in the a.m. Emir Kirk MD [facility]
[2017-03-17] MEDS: metroNIDAZOLE IV 500 mg/100 ml 500 MG/100 ML BAG IVPB SCH ×3 (06:24→21:44)
[2017-03-17] MEDS: Cholestyramine 4 gm/Pkt UD PO SCH ×3 (08:24→21:44)
[2017-03-17] MEDS: Saccharomyces Boulardi 250 mg Cap PO SCH ×2 (10:20→17:24)
[2017-03-17] MEDS: Multiple Vitamins Tab PO SCH ×2 (10:20→14:38)
[2017-03-17] MEDS: Pantoprazole 40 mg EC Tab PO SCH ×2 (10:22→14:38)
--- NOTE | 2017-03-17 10:57 | CP.PCM.PN ---
Subjective - Date & Time of Evaluation Date of Evaluation: 03/17/17 Time of Evaluation: 10:57 - Subjective Subjective: follow up consult is dictated, seen in [id number] Objective - Vital Signs/Intake and Output Vital Signs (last 24 hours): Temp Pulse Resp BP Pulse Ox 97.9 F 106 H 20 122/80 95 03/17/17 09:50 03/17/17 09:50 03/17/17 09:50 03/17/17 10:22 03/17/17 09:50 Intake and Output: 03/17/17 03/17/17 06:59 18:59 Intake Total 720 120 Output Total 400 Balance 320 120 - Medications Medications: Current Medications Acetaminophen (Tylenol 325mg Tab) 650 mg PO Q4H PRN PRN Reason: Fever >100.4 F Al Hydrox/Mg Hydrox/Simethicone (Maalox 30 Ml) 30 ml PO Q4H PRN PRN Reason: Heartburn Allopurinol (Zyloprim) 100 mg PO DAILY [facility] Last Admin: 03/17/17 10:22 Dose: Not Given Bismuth Subsalicylate (Pepto Bismol) 262 mg PO Q4 [facility] Last Admin: 03/17/17 08:24 Dose: 262 mg Cholestyramine Resin (Questran) 4 gm PO BID@0900,2100 [facility] Last Admin: 03/17/17 08:24 Dose: 4 gm Enalapril Maleate (Vasotec) 10 mg PO DAILY [facility] Last Admin: 03/17/17 10:22 Dose: Not Given Epoetin Kyle (Procrit) 10,000 unit IV [facility] Stop: 03/27/17 09:01 Last Admin: 03/15/17 12:47 Dose: 10,000 unit Finasteride (Proscar) 5 mg PO DAILY [facility] Last Admin: 03/17/17 10:22 Dose: Not Given Furosemide (Lasix) 20 mg PO DAILY [facility] Last Admin: 03/17/17 10:21 Dose: Not Given Gemfibrozil (Lopid) 600 mg PO HS [facility] Last Admin: 03/16/17 21:47 Dose: 600 mg Heparin Sodium (Porcine) (Heparin) 3,300 units IVP MWF [facility] Stop: 03/27/17 09:01 Last Admin: 03/15/17 13:41 Dose: 3,300 units Hydralazine HCl (Apresoline) 25 mg PO BID [facility] Last Admin: 03/17/17 10:20 Dose: Not Given Metronidazole (Flagyl) 500 mg in 100 mls @ 100 mls/hr IVPB Q8 [facility] Last Admin: 03/17/17 06:24 Dose: 100 mls/hr Multivitamins (Hexavitamin) 1 tab PO DAILY [facility] Last Admin: 03/17/17 10:20 Dose: Not Given Pantoprazole Sodium (Protonix Ec Tab) 40 mg PO DAILY [facility] Last Admin: 03/17/17 10:22 Dose: Not Given Paricalcitol (Zemplar) 2 mcg IV MWF [facility] Stop: 03/24/17 09:01 Last Admin: 03/15/17 12:48 Dose: 2 mcg Saccharomyces Boulardii (Florastor) 250 mg PO BID [facility] Last Admin: 03/17/17 10:20 Dose: Not Given Tamsulosin HCl (Flomax) 0.4 mg PO DAILY [facility] Last Admin: 03/17/17 10:20 Dose: Not Given Vancomycin HCl (Vancocin (Oral Or Rectal Use)) 250 mg PO Q6H [facility] Last Admin: 03/17/17 06:26 Dose: 250 mg - Labs Labs: 03/14/17 12:14 03/16/17 13:51 PT 12.9 SECONDS (9.7-12.2) H 03/15/17 13:24 INR 1.2 03/15/17 13:24 APTT 29 SECONDS (21-34) 03/13/17 08:38
[2017-03-17] MEDS: Epoetin Alfa 10,000 unit/ml Dialysis IV SCH (11:56)
[2017-03-17] MEDS: Paricalcitol 2 mcg/ml Inj IV SCH (11:56)
--- NOTE | 2017-03-17 16:22 | CP.PCM.PN ---
Subjective - Date & Time of Evaluation Date of Evaluation: 03/17/17 Time of Evaluation: 16:20 - Subjective Subjective: Patient has no new complaints: no nausea, vomiting. According to nurses, he has had two bowel movements today. Objective - Vital Signs/Intake and Output Vital Signs (last 24 hours): Temp Pulse Resp BP Pulse Ox 98.2 F 95 H 18 134/76 96 03/17/17 13:20 03/17/17 13:20 03/17/17 13:20 03/17/17 14:39 03/17/17 13:20 Intake and Output: 03/17/17 03/17/17 06:59 18:59 Intake Total 720 120 Output Total 400 100 Balance 320 20 - Medications Medications: Current Medications Acetaminophen (Tylenol 325mg Tab) 650 mg PO Q4H PRN PRN Reason: Fever >100.4 F Al Hydrox/Mg Hydrox/Simethicone (Maalox 30 Ml) 30 ml PO Q4H PRN PRN Reason: Heartburn Allopurinol (Zyloprim) 100 mg PO DAILY [facility] Last Admin: 03/17/17 14:39 Dose: 100 mg Bismuth Subsalicylate (Pepto Bismol) 262 mg PO Q4 [facility] Last Admin: 03/17/17 14:40 Dose: Not Given Cholestyramine Resin (Questran) 4 gm PO BID@0900,2100 [facility] Last Admin: 03/17/17 08:24 Dose: 4 gm Enalapril Maleate (Vasotec) 10 mg PO DAILY [facility] Last Admin: 03/17/17 14:39 Dose: 10 mg Epoetin Kyle (Procrit) 10,000 [place] [facility] Stop: 03/27/17 09:01 Last Admin: 03/17/17 11:56 Dose: 10,000 unit Finasteride (Proscar) 5 mg PO DAILY [facility] Last Admin: 03/17/17 14:36 Dose: 5 mg Furosemide (Lasix) 20 mg PO DAILY [facility] Last Admin: 03/17/17 14:37 Dose: 20 mg Gemfibrozil (Lopid) 600 mg PO HS [facility] Last Admin: 03/16/17 21:47 Dose: 600 mg Heparin Sodium (Porcine) (Heparin) 3,300 units IVP [facility] Stop: 03/27/17 09:01 Last Admin: 03/17/17 11:54 Dose: 3,300 units Hydralazine HCl (Apresoline) 25 mg PO BID [facility] Last Admin: 03/17/17 10:20 Dose: Not Given Metronidazole (Flagyl) 500 mg in 100 mls @ 100 mls/hr IVPB Q8 [facility] Last Admin: 03/17/17 14:37 Dose: 100 mls/hr Multivitamins (Hexavitamin) 1 tab PO DAILY [facility] Last Admin: 03/17/17 14:38 Dose: 1 tab Pantoprazole Sodium (Protonix Ec Tab) 40 mg PO DAILY [facility] Last Admin: 03/17/17 14:38 Dose: 40 mg Paricalcitol (Zemplar) 2 mcg IV MWF [facility] Stop: 03/24/17 09:01 Last Admin: 03/17/17 11:56 Dose: 2 mcg Saccharomyces Boulardii (Florastor) 250 mg PO BID [facility] Last Admin: 03/17/17 10:20 Dose: Not Given Tamsulosin HCl (Flomax) 0.4 mg PO DAILY [facility] Last Admin: 03/17/17 14:40 Dose: 0.4 mg Vancomycin HCl (Vancocin (Oral Or Rectal Use)) 250 mg PO Q6H [facility] Last Admin: 03/17/17 14:43 Dose: 250 mg - Labs Labs: 03/14/17 12:14 03/16/17 13:51 PT 12.9 SECONDS (9.7-12.2) H 03/15/17 13:24 INR 1.2 03/15/17 13:24 APTT 29 SECONDS (21-34) 03/13/17 08:38 - Constitutional Appears: No Acute Distress - Head Exam Head Exam: ATRAUMATIC, NORMOCEPHALIC - Neck Exam Neck Exam: absent: Lymphadenopathy, Thyromegaly - Respiratory Exam Respiratory Exam: NORMAL BREATHING PATTERN. absent: Rales, Rhonchi, Wheezes - Cardiovascular Exam Cardiovascular Exam: REGULAR RHYTHM, +S1, +S2. absent: Gallop, Rubs, Murmur - GI/Abdominal Exam GI & Abdominal Exam: Soft, Normal Bowel Sounds. absent: Tenderness, Mass, Organomegaly - Rectal Exam Rectal Exam: Deferred - Extremities Exam Extremities Exam: absent: Calf Tenderness, Pedal Edema Assessment and Plan (1) C. difficile diarrhea Assessment & Plan: The frequency of bowel movements is decreasing. Continue vancomycin and cholestyramine. Status: Acute
--- NOTE | 2017-03-17 21:57 | US ---
EXAM: US Pelvis Complete CLINICAL HISTORY: 76 years old, male; Signs and symptoms; Other: Bladder check - post void TECHNIQUE: Real-time pelvic ultrasound (complete) with image documentation. COMPARISON: CT - ABD PELVIS PO CONTRAST ONLY 2017-03-12 22:43 FINDINGS: Prostate: Not visualized. Seminal vessicles: Not identified due to lack of a sufficient acoustic window. Bladder: The prevoid volume of the bladder is 475 cc. The patient is unable to void. The left ureteral jet is unremarkable. The right ureteral jet was not visualized. IMPRESSION: Limited examination demonstrates moderate distention of the urinary bladder in a patient who is unable to void.
--- NOTE | 2017-03-17 22:58 | CP.PCM.PN ---
Subjective - Date & Time of Evaluation Date of Evaluation: 03/17/17 Time of Evaluation: 16:55 - Subjective Subjective: Pt is seen and examined at bedside, c/o loose watterry stools, pt has positive c.diff coloitis, on contact isolatiin and antibiotics Objective - Vital Signs/Intake and Output Vital Signs (last 24 hours): Temp Pulse Resp BP Pulse Ox 98.8 F 99 H 20 130/66 97 03/17/17 16:00 03/17/17 17:00 03/17/17 16:00 03/17/17 17:00 03/17/17 16:00 Intake and Output: 03/17/17 03/18/17 18:59 06:59 Intake Total 120 600 Output Total 100 100 Balance 20 500 - Medications Medications: Current Medications Acetaminophen (Tylenol 325mg Tab) 650 mg PO Q4H PRN PRN Reason: Fever >100.4 F Al Hydrox/Mg Hydrox/Simethicone (Maalox 30 Ml) 30 ml PO Q4H PRN PRN Reason: Heartburn Allopurinol (Zyloprim) 100 mg PO DAILY [facility] Last Admin: 03/17/17 14:39 Dose: 100 mg Bismuth Subsalicylate (Pepto Bismol) 262 mg PO Q4 [facility] Last Admin: 03/17/17 21:44 Dose: 262 mg Cholestyramine Resin (Questran) 4 gm PO BID@0900,2100 [facility] Last Admin: 03/17/17 21:44 Dose: 4 gm Enalapril Maleate (Vasotec) 10 mg PO DAILY [facility] Last Admin: 03/17/17 14:39 Dose: 10 mg Epoetin Kyle (Procrit) 10,000 unit IV [facility] [place] Stop: 03/27/17 09:01 Last Admin: 03/17/17 11:56 Dose: 10,000 unit Finasteride (Proscar) 5 mg PO DAILY [facility] Last Admin: 03/17/17 14:36 Dose: 5 mg Furosemide (Lasix) 20 mg PO DAILY [facility] Last Admin: 03/17/17 14:37 Dose: 20 mg Gemfibrozil (Lopid) 600 mg PO HS [facility] Last Admin: 03/17/17 21:44 Dose: 600 mg Heparin Sodium (Porcine) (Heparin) 3,300 units IVP [facility] Stop: 03/27/17 09:01 Last Admin: 03/17/17 11:54 Dose: 3,300 units Hydralazine HCl (Apresoline) 25 mg PO BID [facility] Last Admin: 03/17/17 17:25 Dose: 25 mg Metronidazole (Flagyl) 500 mg in 100 mls @ 100 mls/hr IVPB Q8 [facility] Last Admin: 03/17/17 21:44 Dose: 100 mls/hr Multivitamins (Hexavitamin) 1 tab PO DAILY [facility] Last Admin: 03/17/17 14:38 Dose: 1 tab Pantoprazole Sodium (Protonix Ec Tab) 40 mg PO DAILY [facility] Last Admin: 03/17/17 14:38 Dose: 40 mg Paricalcitol (Zemplar) 2 mcg IV MWF [facility] Stop: 03/24/17 09:01 Last Admin: 03/17/17 11:56 Dose: 2 mcg Saccharomyces Boulardii (Florastor) 250 mg PO BID [facility] Last Admin: 03/17/17 17:24 Dose: 250 mg Tamsulosin HCl (Flomax) 0.4 mg PO DAILY [facility] Last Admin: 03/17/17 14:40 Dose: 0.4 mg Vancomycin HCl (Vancocin (Oral Or Rectal Use)) 250 mg PO Q6H [facility] Last Admin: 03/17/17 17:25 Dose: 250 mg - Labs Labs: 03/14/17 12:14 03/16/17 13:51 PT 12.9 SECONDS (9.7-12.2) H 03/15/17 13:24 INR 1.2 03/15/17 13:24 APTT 29 SECONDS (21-34) 03/13/17 08:38 - Constitutional Appears: No Acute Distress - Head Exam Head Exam: ATRAUMATIC, NORMAL INSPECTION, NORMOCEPHALIC - Eye Exam Eye Exam: EOMI, Normal appearance, PERRL Pupil Exam: NORMAL ACCOMODATION, PERRL - Respiratory Exam Respiratory Exam: Clear to Ausculation Bilateral, NORMAL BREATHING PATTERN - Cardiovascular Exam Cardiovascular Exam: REGULAR RHYTHM, +S1, +S2. absent: Murmur - GI/Abdominal Exam GI & Abdominal Exam: Soft, Normal Bowel Sounds. absent: Tenderness - Back Exam Back Exam: NORMAL INSPECTION - Neurological Exam Neurological Exam: Alert, Awake, CN II-XII Intact, Normal Gait, Oriented x3 Assessment and Plan (1) Abdominal tenderness, LLQ (left lower quadrant) Status: Acute (2) Acute diarrhea Status: Acute (3) C. difficile diarrhea Status: Acute (4) CKD (chronic kidney disease) Status: Acute
[2017-03-17 23:41] LABS: RBC URINE 4 /hpf (0-3); URINE BACTERIA MANY (<OCC); URINE BILIRUBIN NEGATIVE (NEGATIVE); URINE COLOR Yellow (YELLOW); URINE GLUCOSE (UA) NORMAL (Normal); URINE KETONE NEGATIVE (NEGATIVE); URINE LEUKOCYTE ESTERASE 3+ Leu/uL (Negative); URINE PROTEIN 2+ mg/dL (NEGATIVE); URINE UROBILINOGEN NORMAL mg/dL (0.2-1.0); WBC CLUMPS FEW /hpf; WBC URINE 364 /hpf (0-5)
[2017-03-17 23:42] LABS: URINE BLOOD 1+ (NEGATIVE)
[2017-03-18] MEDS: Vancomycin 125 MG/5 ML SOLN (ORAL/RECTAL) PO SCH ×4 (00:10→17:16)
[2017-03-18] MEDS: Bismuth Subsalicylate 262 mg Chew Tab PO SCH ×6 (01:06→20:18)
--- NOTE | 2017-03-18 04:53 | PN ---
DATE: FOLLOWUP RENAL CONSULTATION LOCATION: The patient is located in room 557, bed A. REQUESTED BY: Yeison Cole MD REASON FOR FOLLOWUP: End-stage renal disease, for continuation of hemodialysis 3 times a week. HISTORY OF PRESENT ILLNESS: Mr. Cho is a 76-year-old elderly male with a past medical history significant for longstanding hypertension, BPH, hyperlipidemia, end-stage renal disease, osteoarthritis, recurrent UTI, who was admitted with severe diarrhea for 2 to 3 weeks and found to have C. diff colitis. The patient is feeling much better. The patient was seen and examined during hemodialysis today. Ultrafiltration goal is about 2 liters. The patient claims he had 1 bowel movement this morning. No complaints. PHYSICAL EXAMINATION: VITAL SIGNS: As follows, blood pressure 154/81, pulse 106, respirations 20, temperature 97.9, saturation 95%. Height 5 feet 8 inches, and weight is 192 pounds. GENERAL: Mr. Cho is a 76-year-old elderly male, well-built, well-nourished, not in distress. HEENT: Pupils normal and reactive to light and accommodation. Conjunctiva pink. Sclerae anicteric. Tongue is moist. Trachea is midline. LUNGS: Symmetric on both sides. Bilateral breath sounds present. Clear on auscultation. CARDIOVASCULAR: [place] at the fifth intercostal space, midclavicular line. S1 and S2 audible. No murmur or gallop. ABDOMEN: Normal in appearance, soft, tympanic. No guarding. No rigidity. No hepatosplenomegaly. CENTRAL NERVOUS SYSTEM: The patient is alert, awake, oriented x3. Nonfocal neuro examination. Cranial nerves II through XII grossly intact. Sensory and motor system is within normal limits. EXTREMITIES: No cyanosis, no clubbing, no edema. CURRENT MEDICATIONS: Include as follows, hydralazine 25 mg p.o. b.i.d., Flagyl 500 mg IV piggyback q.8h., Flomax 0.4 mg p.o. daily, Florastor 250 mg p.o. b.i.d., multivitamin 1 tablet p.o. daily, Lasix 20 mg p.o. daily, Lopid 600 mg p.o. at bedtime, Pepto-Bismol 262 mg p.o. q.4h. p.r.n., Procrit 10,000 units 3 times a week, Proscar 5 mg p.o. daily, Protonix 40 mg daily, Questran 4 g p.o. b.i.d., Tylenol, vancomycin 250 mg p.o. q.6h., Vasotec 10 mg daily, Zemplar 2 mcg 3 times a week, and allopurinol 100 mg p.o. daily. LABORATORY DATA: No new labs are available. Accu-Cheks 84 and 148. Stool culture final, no Salmonella, Shigella and Campylobacter isolated. ASSESSMENT: In summary, Mr. Cho is a 76-year-old elderly male with a history of hypertension, benign prostatic hypertrophy, end-stage renal disease, osteoarthritis, recurrent urinary tract infection, was admitted with severe diarrhea and found to have Clostridium difficile colitis, now on vancomycin and Flagyl. 1. End-stage renal disease. Continue hemodialysis 3 times a week, Monday, Monday, and Monday. 2. Clostridium difficile colitis. 3. Hypertension. 4. Anemia secondary to renal failure. PLAN: Continue hemodialysis 3 times a week and continue vancomycin and Flagyl. Follow up with Gastro[facility]. Continue his current medication. White count is improving from 17.8 to 8.9 on 03/14/2017. Repeat labs in a.m. Thank you for allowing me to participate in your patient's care. Emir Kirk MD [facility]
[2017-03-18] MEDS: metroNIDAZOLE IV 500 mg/100 ml 500 MG/100 ML BAG IVPB SCH ×3 (06:09→21:42)
[2017-03-18] MEDS: Cholestyramine 4 gm/Pkt UD PO SCH ×2 (08:47→20:18)
[2017-03-18 08:51] LABS: BASO # 0.1 K/uL (0.0-0.2); BASO % 0.8 % (0.0-2.0); EOS # 0.2 K/uL (0.0-0.7); EOS % 2.7 % (0.0-4.0); HEMATOCRIT 31.4 % (35.0-51.0); LYMPH # 1.6 K/uL (1.0-4.3); LYMPH % 18.6 % (20.0-40.0); MEAN CELL VOLUME 91.2 fL (80.0-94.0); MEAN CORPUSCULAR HEMOGLOBIN 29.3 pg (27.0-31.0); MEAN CORPUSCULAR HGB CONC 32.1 g/dL (33.0-37.0); MONO % 11.6 % (0.0-10.0); NRBC % 0.2 % (0.0-2.0); RED CELL DISTRIBUTION WIDTH 19.4 % (11.5-14.5); WHITE BLOOD COUNT 8.4 K/uL (4.8-10.8)
[2017-03-18] MEDS: Pantoprazole 40 mg EC Tab PO SCH (09:50)
[2017-03-18] MEDS: Saccharomyces Boulardi 250 mg Cap PO SCH ×2 (09:50→17:16)
[2017-03-18] MEDS: Multiple Vitamins Tab PO SCH (09:50)
[2017-03-18 10:05] LABS: ALB/GLOB RATIO 0.7 (1.0-2.1); BILIRUBIN,TOTAL 0.2 mg/dL (0.2-1.3); CALCIUM 7.6 mg/dl (8.6-10.4); POTASSIUM 3.9 mmol/L (3.6-5.2); TOTAL PROTEIN 5.6 g/dL (6.3-8.3)
--- NOTE | 2017-03-18 11:03 | CP.PCM.PN ---
Subjective - Date & Time of Evaluation Date of Evaluation: 03/18/17 Time of Evaluation: 11:01 - Subjective Subjective: F/U diarrhea/colitis Covering Dr Truong Reports feeling better. Diarrhea improving. Denies fever, chills, SZ, LOC, OZUNA, cough, RB, melena, CP Objective - Vital Signs/Intake and Output Vital Signs (last 24 hours): Temp Pulse Resp BP Pulse Ox 97.8 F 94 H 20 150/80 94 L 03/18/17 07:50 03/18/17 07:50 03/18/17 07:50 03/18/17 09:50 03/18/17 07:50 Intake and Output: 03/18/17 03/18/17 06:59 18:59 Intake Total 600 Output Total 300 Balance 300 - Medications Medications: Current Medications Acetaminophen (Tylenol 325mg Tab) 650 mg PO Q4H PRN PRN Reason: Fever >100.4 F Last Admin: 03/18/17 04:05 Dose: 650 mg Al Hydrox/Mg Hydrox/Simethicone (Maalox 30 Ml) 30 ml PO Q4H PRN PRN Reason: Heartburn Allopurinol (Zyloprim) 100 mg PO DAILY [facility] Last Admin: 03/18/17 09:50 Dose: 100 mg Bismuth Subsalicylate (Pepto Bismol) 262 mg PO Q4 [facility] Last Admin: 03/18/17 08:47 Dose: 262 mg Cholestyramine Resin (Questran) 4 gm PO BID@0900,2100 [facility] Last Admin: 03/18/17 08:47 Dose: 4 gm Enalapril Maleate (Vasotec) 10 mg PO DAILY [facility] Last Admin: 03/18/17 09:50 Dose: 10 mg Epoetin Kyle (Procrit) 10,000 unit IV MWF [facility] Stop: 03/27/17 09:01 Last Admin: 03/17/17 11:56 Dose: 10,000 unit Finasteride (Proscar) 5 mg PO DAILY [facility] Last Admin: 03/18/17 09:50 Dose: 5 mg Furosemide (Lasix) 20 mg PO DAILY [facility] Last Admin: 03/18/17 09:50 Dose: 20 mg Gemfibrozil (Lopid) 600 mg PO HS [facility] Last Admin: 03/17/17 21:44 Dose: 600 mg Heparin Sodium (Porcine) (Heparin) 3,300 units IVP MWF [facility] Stop: 03/27/17 09:01 Last Admin: 03/17/17 11:54 Dose: 3,300 units Hydralazine HCl (Apresoline) 25 mg PO BID [facility] Last Admin: 03/18/17 09:50 Dose: 25 mg Metronidazole (Flagyl) 500 mg in 100 mls @ 100 mls/hr IVPB Q8 [facility] Last Admin: 03/18/17 06:09 Dose: 100 mls/hr Multivitamins (Hexavitamin) 1 tab PO DAILY [facility] Last Admin: 03/18/17 09:50 Dose: 1 tab Pantoprazole Sodium (Protonix Ec Tab) 40 mg PO DAILY [facility] Last Admin: 03/18/17 09:50 Dose: 40 mg Paricalcitol (Zemplar) 2 mcg [place] [facility] [facility] [place]: 03/24/17 09:01 Last Admin: 03/17/17 11:56 Dose: 2 mcg Saccharomyces Boulardii (Florastor) 250 mg PO BID [facility] Last Admin: 03/18/17 09:50 Dose: 250 mg Tamsulosin HCl (Flomax) 0.4 mg PO DAILY [facility] Last Admin: 03/18/17 09:50 Dose: 0.4 mg Vancomycin HCl (Vancocin (Oral Or Rectal Use)) 250 mg PO Q6H [facility] Last Admin: 03/18/17 06:12 Dose: 250 mg - Labs Labs: 03/18/17 08:47 03/18/17 08:47 PT 12.9 SECONDS (9.7-12.2) H 03/15/17 13:24 INR 1.2 03/15/17 13:24 APTT 29 SECONDS (21-34) 03/13/17 08:38 - Constitutional Appears: Well - Respiratory Exam Respiratory Exam: Clear to Ausculation Bilateral - Cardiovascular Exam Cardiovascular Exam: RRR - GI/Abdominal Exam GI & Abdominal Exam: Soft, Normal Bowel Sounds. absent: Guarding, Tenderness, Mass, Rebound - Extremities Exam Extremities Exam: absent: Pedal Edema - Neurological Exam Neurological Exam: Alert, Oriented x3 Assessment and Plan (1) HTN (hypertension) Status: Acute (2) Acute diarrhea Assessment & Plan: c diff. Improving. Continue meds Status: Acute (3) Acute on chronic renal failure Status: Acute (4) C. difficile diarrhea Status: Acute (5) Anemia Assessment & Plan: chronic. CRF. Status: Acute
--- NOTE | 2017-03-18 12:55 | CP.PCM.PN ---
Subjective - Date & Time of Evaluation Date of Evaluation: 03/18/17 Time of Evaluation: 12:54 - Subjective Subjective: better.vitals ok. Objective - Vital Signs/Intake and Output Vital Signs (last 24 hours): Temp Pulse Resp BP Pulse Ox 97.8 F 94 H 20 150/80 94 L 03/18/17 07:50 03/18/17 07:50 03/18/17 07:50 03/18/17 09:50 03/18/17 07:50 Intake and Output: 03/18/17 03/18/17 06:59 18:59 Intake Total 600 Output Total 300 Balance 300 - Medications Medications: Current Medications Acetaminophen (Tylenol 325mg Tab) 650 mg PO Q4H PRN PRN Reason: Fever >100.4 F Last Admin: 03/18/17 04:05 Dose: 650 mg Al Hydrox/Mg Hydrox/Simethicone (Maalox 30 Ml) 30 ml PO Q4H PRN PRN Reason: Heartburn Allopurinol (Zyloprim) 100 mg PO DAILY [facility] Last Admin: 03/18/17 09:50 Dose: 100 mg Bismuth Subsalicylate (Pepto Bismol) 262 mg PO Q4 [facility] Last Admin: 03/18/17 08:47 Dose: 262 mg Cholestyramine Resin (Questran) 4 gm PO BID@0900,2100 [facility] Last Admin: 03/18/17 08:47 Dose: 4 gm Enalapril Maleate (Vasotec) 10 mg PO DAILY [facility] Last Admin: 03/18/17 09:50 Dose: 10 mg Epoetin [place] (Procrit) 10,000 [place] [facility] [place]: 03/27/17 09:01 Last Admin: 03/17/17 11:56 Dose: 10,000 unit Finasteride (Proscar) 5 mg PO DAILY [facility] Last Admin: 03/18/17 09:50 Dose: 5 mg Furosemide (Lasix) 20 mg PO DAILY [facility] Last Admin: 03/18/17 09:50 Dose: 20 mg Gemfibrozil (Lopid) 600 mg PO HS [facility] Last Admin: 03/17/17 21:44 Dose: 600 mg Heparin Sodium (Porcine) (Heparin) 3,300 units IVP [facility] [place] Stop: 03/27/17 09:01 Last Admin: 03/17/17 11:54 Dose: 3,300 units Hydralazine HCl (Apresoline) 25 mg PO BID [facility] Last Admin: 03/18/17 09:50 Dose: 25 mg Metronidazole (Flagyl) 500 mg in 100 mls @ 100 mls/hr IVPB Q8 [facility] Last Admin: 03/18/17 06:09 Dose: 100 mls/hr Multivitamins (Hexavitamin) 1 tab PO DAILY [facility] Last Admin: 03/18/17 09:50 Dose: 1 tab Pantoprazole Sodium (Protonix Ec Tab) 40 mg PO DAILY [facility] Last Admin: 03/18/17 09:50 Dose: 40 mg Paricalcitol (Zemplar) 2 mcg IV MWF [facility] Stop: 03/24/17 09:01 Last Admin: 03/17/17 11:56 Dose: 2 mcg Saccharomyces Boulardii (Florastor) 250 mg PO BID [facility] Last Admin: 03/18/17 09:50 Dose: 250 mg Tamsulosin HCl (Flomax) 0.4 mg PO DAILY [facility] Last Admin: 03/18/17 09:50 Dose: 0.4 mg Vancomycin HCl (Vancocin (Oral Or Rectal Use)) 250 mg PO Q6H [facility] Last Admin: 03/18/17 06:12 Dose: 250 mg - Labs Labs: 03/18/17 08:47 03/18/17 08:47 PT 12.9 SECONDS (9.7-12.2) H 03/15/17 13:24 INR 1.2 03/15/17 13:24 APTT 29 SECONDS (21-34) 03/13/17 08:38 - Constitutional Appears: In Acute Distress, Chronically Ill - Head Exam Head Exam: NORMOCEPHALIC - Eye Exam Eye Exam: Normal appearance - Respiratory Exam Respiratory Exam: Clear to Ausculation Bilateral - Cardiovascular Exam Cardiovascular Exam: REGULAR RHYTHM - GI/Abdominal Exam GI & Abdominal Exam: Soft - Extremities Exam Extremities Exam: absent: Pedal Edema - Neurological Exam Neurological Exam: Alert, Oriented x3 Assessment and Plan - Assessment and Plan (Free Text) Assessment: [email or web address]
--- NOTE | 2017-03-18 18:35 | CP.PCM.PN ---
Subjective - Date & Time of Evaluation Date of Evaluation: 03/18/17 Time of Evaluation: 18:34 - Subjective Subjective: pt is seen and examined, follow up consult is dictated #[id number] Objective - Vital Signs/Intake and Output Vital Signs (last 24 hours): Temp Pulse Resp BP Pulse Ox 97.8 F 85 22 139/71 95 03/18/17 16:00 03/18/17 16:00 03/18/17 16:00 03/18/17 16:00 03/18/17 16:00 Intake and Output: 03/18/17 03/18/17 06:59 18:59 Intake Total 600 Output Total 300 Balance 300 - Medications Medications: Current Medications Acetaminophen (Tylenol 325mg Tab) 650 mg PO Q4H PRN PRN Reason: Fever >100.4 F Last Admin: 03/18/17 04:05 Dose: 650 mg Al Hydrox/Mg Hydrox/Simethicone (Maalox 30 Ml) 30 ml PO Q4H PRN PRN Reason: Heartburn Allopurinol (Zyloprim) 100 mg PO DAILY [facility] Last Admin: 03/18/17 09:50 Dose: 100 mg Bismuth Subsalicylate (Pepto Bismol) 262 mg PO Q4 [facility] Last Admin: 03/18/17 16:55 Dose: 262 mg Cholestyramine Resin (Questran) 4 gm PO BID@0900,2100 [facility] Last Admin: 03/18/17 08:47 Dose: 4 gm Doxycycline Hyclate (Doryx) 100 mg PO Q12H [facility] Last Admin: 03/18/17 16:55 Dose: 100 mg Enalapril Maleate (Vasotec) 10 mg PO DAILY [facility] Last Admin: 03/18/17 09:50 Dose: 10 mg Epoetin Kyle (Procrit) 10,000 unit IV MWF [facility] Stop: 03/27/17 09:01 Last Admin: 03/17/17 11:56 Dose: 10,000 unit Finasteride (Proscar) 5 mg PO DAILY [facility] Last Admin: 03/18/17 09:50 Dose: 5 mg Furosemide (Lasix) 20 mg PO DAILY [facility] Last Admin: 03/18/17 09:50 Dose: 20 mg Gemfibrozil (Lopid) 600 mg PO HS [facility] Last Admin: 03/17/17 21:44 Dose: 600 mg Heparin Sodium (Porcine) (Heparin) 3,300 units IVP MWF [facility] Stop: 03/27/17 09:01 Last Admin: 03/17/17 11:54 Dose: 3,300 units Hydralazine HCl (Apresoline) 25 mg PO BID [facility] Last Admin: 03/18/17 17:16 Dose: 25 mg Metronidazole (Flagyl) 500 mg in 100 mls @ 100 mls/hr IVPB Q8 [facility] Last Admin: 03/18/17 13:36 Dose: 100 mls/hr Multivitamins (Hexavitamin) 1 tab PO DAILY [facility] Last Admin: 03/18/17 09:50 Dose: 1 tab Pantoprazole Sodium (Protonix Ec Tab) 40 mg PO DAILY [facility] Last Admin: 03/18/17 09:50 Dose: 40 mg Paricalcitol (Zemplar) 2 mcg IV [facility] [place] Stop: 03/24/17 09:01 Last Admin: 03/17/17 11:56 Dose: 2 mcg Saccharomyces Boulardii (Florastor) 250 mg PO BID [facility] Last Admin: 03/18/17 17:16 Dose: 250 mg Tamsulosin HCl (Flomax) 0.4 mg PO DAILY [facility] Last Admin: 03/18/17 09:50 Dose: 0.4 mg Vancomycin HCl (Vancocin (Oral Or Rectal Use)) 250 mg PO Q6H [facility] Last Admin: 03/18/17 17:16 Dose: 250 mg - Labs Labs: 03/18/17 08:47 03/18/17 08:47 PT 12.9 SECONDS (9.7-12.2) H 03/15/17 13:24 INR 1.2 03/15/17 13:24 APTT 29 SECONDS (21-34) 03/13/17 08:38
--- NOTE | 2017-03-18 20:59 | PN ---
DATE: FOLLOWUP RENAL CONSULTATION LOCATION: The patient is located in room 557, bed A. REQUESTED BY: Yeison Cole MD. REASON FOR FOLLOWUP: End-stage renal disease, for continuation of the hemodialysis and C. diff colitis. SUBJECTIVE: Mr. Cho is a 76 years old elderly obese male with a past medical history significant for longstanding hypertension; BPH; UTI; osteoarthritis; end-stage renal disease, on hemodialysis, who was admitted with a severe diarrhea for 2 to 3 weeks and weakness. Subsequently, the patient was found to have a C. diff colitis. The patient is being treated for C. diff colitis with IV Flagyl and p.o. vancomycin. Complains of poor appetite. No shortness of breath. Denies any chest pain, palpitation. Denies any fever, cough. No abdominal pain. No nausea, vomiting. PHYSICAL EXAMINATION: GENERAL: Mr. Cho is a 76 years old elderly male, moderately built and moderately nourished, not in any distress. VITAL SIGNS: As follows; blood pressure 139/71, pulse 85, respirations 22, temperature 97.8, saturation 95%. Height 5 feet 8 inches and weight is 192 pounds. HEENT: Pupils are normal and reactive to light and accommodation. Conjunctivae pink. Sclerae anicteric. Tongue is moist. Trachea is midline. LUNGS: Symmetric on both sides. Bilateral breath sounds present. Clear on auscultation. CARDIOVASCULAR SYSTEM: Tyler at the fifth intercostal space, midclavicular line. S1 and S2 audible. No murmur or gallop. ABDOMEN: Normal in appearance, soft, tympanic. No guarding. No rigidity. No hepatosplenomegaly. No abdominal bruit. CENTRAL NERVOUS SYSTEM: The patient is alert, awake, oriented x2 to 3. Sensory and motor system is within normal limits. EXTREMITIES: No cyanosis. No clubbing. No edema. LABORATORY DATA: Include as follows; WBC 8.4, hemoglobin 10.1, hematocrit is 31.4, platelets 223. Sodium 135, potassium 3.9, chloride 103, CO2 of 30, BUN 15, creatinine 3.2, glucose 155 and calcium 7.6, total bili 0.2, AST 17, ALT 24, alkaline phosphatase 65, total protein 5.6, albumin is 2.3. As of 03/17/2017, urine yellow, hazy, pH 7, specific gravity 1.005, protein 2+, glucose normal, ketones negative, blood 1+, nitrite negative, bilirubin is negative, urobilinogen normal, leukocyte esterase 3+, wbc 364 and rbc 4 and wbc clumps few, bacteria many. Stool culture x2 is negative. MEDICATIONS: His current medications include as follows; hydralazine 25 mg p.o. b.i.d., doxycycline 100 mg p.o. q. 12 hours and Flagyl 500 mg IV q. 8 hours and Flomax 0.4 mg p.o. daily and Florastor 250 mg p.o. b.i.d., heparin 3300 units in Perm-A-Cath 3 times a week and hexavitamin 1 tablet p.o. daily and Lasix 20 mg p.o. daily, Lopid 600 mg p.o. at bedtime and Pepto-Bismol 262 mg p.o. q. 4 hours and Procrit 10,000 units 3 times a week, Proscar 5 mg daily and Protonix 40 mg daily, Questran 4 g p.o. b.i.d. and Tylenol and vancomycin 250 mg p.o. q. 6 hours and Zemplar 2 mcg 3 times a week, allopurinol 100 mg p.o. daily. ASSESSMENT AND PLAN: In summary, Mr. Cho is a 76 years old elderly obese male with a history of hypertension, hyperlipidemia, benign prostatic hypertrophic, osteoarthritis, frequent urinary tract infections, anemia, end-stage renal disease, was admitted with a severe diarrhea, found to have a Clostridium difficile colitis. 1. End-stage renal disease. Continue hemodialysis 3 times a week, Monday, Monday, Monday. 2. Clostridium difficile colitis. Continue vancomycin and Flagyl. 3. Rule out urinary tract infection. Continue doxycycline as per the primary medical doctor. 4. Benign prostatic hypertrophy. Continue Proscar and Flomax. We will follow up with you. Thank you for allowing me to participate in your patient's care and also we will start Nepro 1 can p.o. b.i.d. Emir Kirk MD
[2017-03-19] MEDS: Vancomycin 125 MG/5 ML SOLN (ORAL/RECTAL) PO SCH ×4 (00:07→17:00)
[2017-03-19] MEDS: Bismuth Subsalicylate 262 mg Chew Tab PO SCH ×8 (00:12→21:01)
[2017-03-19] MEDS: metroNIDAZOLE IV 500 mg/100 ml 500 MG/100 ML BAG IVPB SCH ×3 (06:11→21:02)
--- NOTE | 2017-03-19 06:17 | CP.PCM.PN ---
Subjective - Date & Time of Evaluation Date of Evaluation: 03/18/17 Time of Evaluation: 19:00 - Subjective Subjective: Pt seen and evaluated at bedside. pt urine analysisi is positive, he is c/o suprapubic pain, urine cultures have been ordered, pt has bladder Ultrasound done but it was limited due to overdistention and pt unability to void Objective - Vital Signs/Intake and Output Vital Signs (last 24 hours): Temp Pulse Resp BP Pulse Ox 97.9 F 99 H 20 161/85 H 99 03/18/17 23:10 03/18/17 23:10 03/18/17 23:10 03/18/17 23:10 03/18/17 23:10 Intake and Output: 03/18/17 03/19/17 18:59 06:59 Intake Total 600 Output Total 400 Balance 200 - Medications Medications: Current Medications Acetaminophen (Tylenol 325mg Tab) 650 mg PO Q4H PRN PRN Reason: Fever >100.4 F Last Admin: 03/18/17 04:05 Dose: 650 mg Al Hydrox/Mg Hydrox/Simethicone (Maalox 30 Ml) 30 ml PO Q4H PRN PRN Reason: Heartburn Allopurinol (Zyloprim) 100 mg PO DAILY [facility] Last Admin: 03/18/17 09:50 Dose: 100 mg Bismuth Subsalicylate (Pepto Bismol) 262 mg PO Q4 [facility] Last Admin: 03/19/17 04:19 Dose: 262 mg Cholestyramine Resin (Questran) 4 gm PO BID@0900,2100 [facility] Last Admin: 03/18/17 20:18 Dose: 4 gm Doxycycline Hyclate (Doryx) 100 mg PO Q12H [facility] Last Admin: 03/19/17 04:18 Dose: 100 mg Enalapril Maleate (Vasotec) 10 mg PO DAILY [facility] Last Admin: 03/18/17 09:50 Dose: 10 mg Epoetin Kyle (Procrit) 10,000 unit IV MWF [facility] Stop: 03/27/17 09:01 Last Admin: 03/17/17 11:56 Dose: 10,000 unit Finasteride (Proscar) 5 mg PO DAILY [facility] Last Admin: 03/18/17 09:50 Dose: 5 mg Furosemide (Lasix) 20 mg PO DAILY [facility] Last Admin: 03/18/17 09:50 Dose: 20 mg Gemfibrozil (Lopid) 600 mg PO HS [facility] Last Admin: 03/18/17 21:42 Dose: 600 mg Heparin Sodium (Porcine) (Heparin) 3,300 units IVP MWF [facility] Stop: 03/27/17 09:01 Last Admin: 03/17/17 11:54 Dose: 3,300 units Hydralazine HCl (Apresoline) 25 mg PO BID [facility] Last Admin: 03/18/17 17:16 Dose: 25 mg Metronidazole (Flagyl) 500 mg in 100 mls @ 100 mls/hr IVPB Q8 [facility] Last Admin: 03/19/17 06:11 Dose: 100 mls/hr Multivitamins (Hexavitamin) 1 tab PO DAILY [facility] Last Admin: 03/18/17 09:50 Dose: 1 tab Pantoprazole Sodium (Protonix Ec Tab) 40 mg PO DAILY [facility] Last Admin: 03/18/17 09:50 Dose: 40 mg Paricalcitol (Zemplar) 2 mcg IV [facility] Stop: 03/24/17 09:01 Last Admin: 03/17/17 11:56 Dose: 2 mcg Saccharomyces Boulardii (Florastor) 250 mg PO BID [facility] Last Admin: 03/18/17 17:16 Dose: 250 mg Tamsulosin HCl (Flomax) 0.4 mg PO DAILY [facility] Last Admin: 03/18/17 09:50 Dose: 0.4 mg Vancomycin HCl (Vancocin (Oral Or Rectal Use)) 250 mg PO Q6H [facility] Last Admin: 03/19/17 06:11 Dose: 250 mg - Labs Labs: 03/18/17 08:47 03/18/17 08:47 PT 12.9 SECONDS (9.7-12.2) H 03/15/17 13:24 INR 1.2 03/15/17 13:24 APTT 29 SECONDS (21-34) 03/13/17 08:38 - Constitutional Appears: No Acute Distress - Head Exam Head Exam: ATRAUMATIC, NORMAL INSPECTION, NORMOCEPHALIC - Eye Exam Eye Exam: EOMI, Normal appearance, PERRL Pupil Exam: NORMAL ACCOMODATION, PERRL - Respiratory Exam Respiratory Exam: Clear to Ausculation Bilateral, NORMAL BREATHING PATTERN - Cardiovascular Exam Cardiovascular Exam: REGULAR RHYTHM, +S1, +S2. absent: Murmur - GI/Abdominal Exam GI & Abdominal Exam: Soft, Tenderness, Normal Bowel Sounds - Rectal Exam Rectal Exam: Deferred Assessment and Plan (1) Abdominal tenderness, LLQ (left lower quadrant) Status: Acute (2) Acute diarrhea Status: Acute (3) C. difficile diarrhea Status: Acute (4) CKD (chronic kidney disease) Status: Acute (5) Complicated urinary tract infection Status: Acute
--- NOTE | 2017-03-19 06:18 | CP.PCM.PN ---
Subjective - Date & Time of Evaluation Date of Evaluation: 03/19/17 Time of Evaluation: 09:50 - Subjective Subjective: Pt seen and evaluated at bedside Objective - Vital Signs/Intake and Output Vital Signs (last 24 hours): Temp Pulse Resp BP Pulse Ox 97.9 F 99 H 20 161/85 H 99 03/18/17 23:10 03/18/17 23:10 03/18/17 23:10 03/18/17 23:10 03/18/17 23:10 Intake and Output: 03/18/17 03/19/17 18:59 06:59 Intake Total 600 Output Total 400 Balance 200 - Medications Medications: Current Medications Acetaminophen (Tylenol 325mg Tab) 650 mg PO Q4H PRN PRN Reason: Fever >100.4 F Last Admin: 03/18/17 04:05 Dose: 650 mg Al Hydrox/Mg Hydrox/Simethicone (Maalox 30 Ml) 30 ml PO Q4H PRN PRN Reason: Heartburn Allopurinol (Zyloprim) 100 mg PO DAILY [facility] Last Admin: 03/18/17 09:50 Dose: 100 mg Bismuth Subsalicylate (Pepto Bismol) 262 mg PO Q4 [facility] Last Admin: 03/19/17 04:19 Dose: 262 mg Cholestyramine Resin (Questran) 4 gm PO BID@0900,2100 [facility] Last Admin: 03/18/17 20:18 Dose: 4 gm Doxycycline Hyclate (Doryx) 100 mg PO Q12H [facility] Last Admin: 03/19/17 04:18 Dose: 100 mg Enalapril Maleate (Vasotec) 10 mg PO DAILY [facility] Last Admin: 03/18/17 09:50 Dose: 10 mg Epoetin Kyle (Procrit) 10,000 unit IV MWF [facility] Stop: 03/27/17 09:01 Last Admin: 03/17/17 11:56 Dose: 10,000 unit Finasteride (Proscar) 5 mg PO DAILY [facility] Last Admin: 03/18/17 09:50 Dose: 5 mg Furosemide (Lasix) 20 mg PO DAILY [facility] Last Admin: 03/18/17 09:50 Dose: 20 mg Gemfibrozil (Lopid) 600 mg PO HS [facility] Last Admin: 03/18/17 21:42 Dose: 600 mg Heparin Sodium (Porcine) (Heparin) 3,300 units IVP MWF [facility] Stop: 03/27/17 09:01 Last Admin: 03/17/17 11:54 Dose: 3,300 units Hydralazine HCl (Apresoline) 25 mg PO BID [facility] Last Admin: 03/18/17 17:16 Dose: 25 mg Metronidazole (Flagyl) 500 mg in 100 mls @ 100 mls/hr IVPB Q8 [facility] Last Admin: 03/19/17 06:11 Dose: 100 mls/hr Multivitamins (Hexavitamin) 1 tab PO DAILY [facility] Last Admin: 03/18/17 09:50 Dose: 1 tab Pantoprazole Sodium (Protonix Ec Tab) 40 mg PO DAILY [facility] Last Admin: 03/18/17 09:50 Dose: 40 mg Paricalcitol (Zemplar) 2 mcg IV [facility] [place] Stop: 03/24/17 09:01 Last Admin: 03/17/17 11:56 Dose: 2 mcg Saccharomyces Boulardii (Florastor) 250 mg PO BID [facility] Last Admin: 03/18/17 17:16 Dose: 250 mg Tamsulosin HCl (Flomax) 0.4 mg PO DAILY [facility] Last Admin: 03/18/17 09:50 Dose: 0.4 mg Vancomycin HCl (Vancocin (Oral Or Rectal Use)) 250 mg PO Q6H [facility] Last Admin: 03/19/17 06:11 Dose: 250 mg - Labs Labs: 03/18/17 08:47 03/18/17 08:47 PT 12.9 SECONDS (9.7-12.2) H 03/15/17 13:24 INR 1.2 03/15/17 13:24 APTT 29 SECONDS (21-34) 03/13/17 08:38 Assessment and Plan (1) Abdominal tenderness, LLQ (left lower quadrant) Status: Acute (2) Acute diarrhea Status: Acute (3) C. difficile diarrhea Status: Acute (4) CKD (chronic kidney disease) Status: Acute (5) Complicated urinary tract infection Status: Acute
[2017-03-19] MEDS: Cholestyramine 4 gm/Pkt UD PO SCH ×2 (09:00→21:14)
[2017-03-19] MEDS: Multiple Vitamins Tab PO SCH (10:09)
[2017-03-19] MEDS: Saccharomyces Boulardi 250 mg Cap PO SCH ×2 (10:09→17:00)
[2017-03-19] MEDS: Pantoprazole 40 mg EC Tab PO SCH (10:10)
--- NOTE | 2017-03-19 15:29 | CP.PCM.PN ---
Subjective - Date & Time of Evaluation Date of Evaluation: 03/19/17 Time of Evaluation: 15:26 - Subjective Subjective: Covering Dr Truong F/U diarrhea. Reporrts diarrhea is better. Denies abdom pain, fever, chills, SZ, LOC, Rush, CP SOb Objective - Vital Signs/Intake and Output Vital Signs (last 24 hours): Temp Pulse Resp BP Pulse Ox 98.0 F 95 H 20 162/78 H 98 03/19/17 09:14 03/19/17 09:14 03/19/17 09:14 03/19/17 10:09 03/19/17 09:14 Intake and Output: 03/19/17 03/19/17 06:59 18:59 Intake Total 600 Output Total 400 Balance 200 - Medications Medications: Current Medications Acetaminophen (Tylenol 325mg Tab) 650 mg PO Q4H PRN PRN Reason: Fever >100.4 F Last Admin: 03/18/17 04:05 Dose: 650 mg Al Hydrox/Mg Hydrox/Simethicone (Maalox 30 Ml) 30 ml PO Q4H PRN PRN Reason: Heartburn Allopurinol (Zyloprim) 100 mg PO DAILY [facility] Last Admin: 03/19/17 10:10 Dose: 100 mg Bismuth Subsalicylate (Pepto Bismol) 262 mg PO Q4 [facility] Last Admin: 03/19/17 13:49 Dose: 262 mg Cholestyramine Resin (Questran) 4 gm PO BID@0900,2100 [facility] Last Admin: 03/19/17 09:00 Dose: 4 gm Doxycycline Hyclate (Doryx) 100 mg PO Q12H [facility] Last Admin: 03/19/17 04:18 Dose: 100 mg Enalapril Maleate (Vasotec) 10 mg PO DAILY [facility] Last Admin: 03/19/17 10:09 Dose: 10 mg Epoetin Kyle (Procrit) 10,000 unit IV MWF [facility] Stop: 03/27/17 09:01 Last Admin: 03/17/17 11:56 Dose: 10,000 unit Finasteride (Proscar) 5 mg PO DAILY [facility] Last Admin: 03/19/17 10:14 Dose: 5 mg Furosemide (Lasix) 20 mg PO DAILY [facility] Last Admin: 03/19/17 10:00 Dose: 20 mg Gemfibrozil (Lopid) 600 mg PO HS [facility] Last Admin: 03/18/17 21:42 Dose: 600 mg Heparin Sodium (Porcine) (Heparin) 3,300 units IVP MWF [facility] Stop: 03/27/17 09:01 Last Admin: 03/17/17 11:54 Dose: 3,300 units Hydralazine HCl (Apresoline) 25 mg PO BID [facility] Last Admin: 03/19/17 10:08 Dose: 25 mg Metronidazole (Flagyl) 500 mg in 100 mls @ 100 mls/hr IVPB Q8 [facility] Last Admin: 03/19/17 13:44 Dose: 100 mls/hr Multivitamins (Hexavitamin) 1 tab PO DAILY [facility] Last Admin: 03/19/17 10:09 Dose: 1 tab Pantoprazole Sodium (Protonix Ec Tab) 40 mg PO DAILY [facility] Last Admin: 03/19/17 10:10 Dose: 40 mg Paricalcitol (Zemplar) 2 mcg IV [facility] Stop: 03/24/17 09:01 Last Admin: 03/17/17 11:56 Dose: 2 mcg Saccharomyces Boulardii (Florastor) 250 mg PO BID [facility] Last Admin: 03/19/17 10:09 Dose: 250 mg Tamsulosin HCl (Flomax) 0.4 mg PO DAILY [facility] Last Admin: 03/19/17 10:08 Dose: 0.4 mg Vancomycin HCl (Vancocin (Oral Or Rectal Use)) 250 mg PO Q6H [facility] Last Admin: 03/19/17 12:00 Dose: 250 mg - Labs Labs: 03/18/17 08:47 03/18/17 08:47 PT 12.9 SECONDS (9.7-12.2) H 03/15/17 13:24 INR 1.2 03/15/17 13:24 APTT 29 SECONDS (21-34) 03/13/17 08:38 - Constitutional Appears: Non-toxic - Respiratory Exam Respiratory Exam: Clear to Ausculation Bilateral - Cardiovascular Exam Cardiovascular Exam: RRR - GI/Abdominal Exam GI & Abdominal Exam: Soft, Normal Bowel Sounds. absent: Tenderness - Neurological Exam Neurological Exam: Alert, Oriented x3 Assessment and Plan (1) HTN (hypertension) Status: Acute (2) Acute diarrhea Assessment & Plan: Improving Status: Acute (3) Acute on chronic renal failure Status: Acute (4) C. difficile diarrhea Assessment & Plan: Improving. Continue meds Status: Acute (5) Anemia Assessment & Plan: Outpatient follow up Status: Acute
--- NOTE | 2017-03-19 17:31 | CP.PCM.PN ---
Subjective - Date & Time of Evaluation Date of Evaluation: 03/19/17 Time of Evaluation: 17:31 - Subjective Subjective: pt is seen and examined, follow up consult is dictated #[id number] Objective - Vital Signs/Intake and Output Vital Signs (last 24 hours): Temp Pulse Resp BP Pulse Ox 98.1 F 91 H 20 158/85 H 98 03/19/17 16:13 03/19/17 16:13 03/19/17 16:13 03/19/17 16:13 03/19/17 16:13 Intake and Output: 03/19/17 03/19/17 06:59 18:59 Intake Total 600 300 Output Total 400 2 Balance 200 298 - Medications Medications: Current Medications Acetaminophen (Tylenol 325mg Tab) 650 mg PO Q4H PRN PRN Reason: Fever >100.4 F Last Admin: 03/18/17 04:05 Dose: 650 mg Al Hydrox/Mg Hydrox/Simethicone (Maalox 30 Ml) 30 ml PO Q4H PRN PRN Reason: Heartburn Allopurinol (Zyloprim) 100 mg PO DAILY [facility] Last Admin: 03/19/17 10:10 Dose: 100 mg Bismuth Subsalicylate (Pepto Bismol) 262 mg PO Q4 [facility] Last Admin: 03/19/17 17:00 Dose: 262 mg Cholestyramine Resin (Questran) 4 gm PO BID@0900,2100 [facility] Last Admin: 03/19/17 09:00 Dose: 4 gm Doxycycline Hyclate (Doryx) 100 mg PO Q12H [facility] Last Admin: 03/19/17 17:02 Dose: 100 mg Enalapril Maleate (Vasotec) 10 mg PO DAILY [facility] Last Admin: 03/19/17 10:09 Dose: 10 mg Epoetin Kyle (Procrit) 10,000 unit IV MWF [facility] Stop: 03/27/17 09:01 Last Admin: 03/17/17 11:56 Dose: 10,000 unit Finasteride (Proscar) 5 mg PO DAILY [facility] Last Admin: 03/19/17 10:14 Dose: 5 mg Furosemide (Lasix) 20 mg PO DAILY [facility] Last Admin: 03/19/17 10:00 Dose: 20 mg Gemfibrozil (Lopid) 600 mg PO HS [facility] Last Admin: 03/18/17 21:42 Dose: 600 mg Heparin Sodium (Porcine) (Heparin) 3,300 units IVP MWF [facility] Stop: 03/27/17 09:01 Last Admin: 03/17/17 11:54 Dose: 3,300 units Hydralazine HCl (Apresoline) 25 mg PO BID [facility] Last Admin: 03/19/17 17:00 Dose: 25 mg Metronidazole (Flagyl) 500 mg in 100 mls @ 100 mls/hr IVPB Q8 [facility] Last Admin: 03/19/17 13:44 Dose: 100 mls/hr Multivitamins (Hexavitamin) 1 tab PO DAILY [facility] Last Admin: 03/19/17 10:09 Dose: 1 tab Pantoprazole Sodium (Protonix Ec Tab) 40 mg PO DAILY [facility] Last Admin: 03/19/17 10:10 Dose: 40 mg Paricalcitol (Zemplar) 2 mcg [place] [facility] [place] Stop: 03/24/17 09:01 Last Admin: 03/17/17 11:56 Dose: 2 mcg Saccharomyces Boulardii (Florastor) 250 mg PO BID [facility] Last Admin: 03/19/17 17:00 Dose: 250 mg Tamsulosin HCl (Flomax) 0.4 mg PO DAILY [facility] Last Admin: 03/19/17 10:08 Dose: 0.4 mg Vancomycin HCl (Vancocin (Oral Or Rectal Use)) 250 mg PO Q6H [facility] Last Admin: 03/19/17 17:00 Dose: 250 mg - Labs Labs: 03/18/17 08:47 03/18/17 08:47 PT 12.9 SECONDS (9.7-12.2) H 03/15/17 13:24 INR 1.2 03/15/17 13:24 APTT 29 SECONDS (21-34) 03/13/17 08:38
[2017-03-20] MEDS: Bismuth Subsalicylate 262 mg Chew Tab PO SCH ×6 (00:02→20:57)
[2017-03-20] MEDS: Vancomycin 125 MG/5 ML SOLN (ORAL/RECTAL) PO SCH ×3 (00:03→18:01)
--- NOTE | 2017-03-20 02:57 | PN ---
DATE: FOLLOWUP RENAL CONSULTATION LOCATION: Room 557, bed A. REQUESTED BY: Dr. Yeison Cole. REASON FOR RENAL CONSULTATION: End-stage renal disease, continuation of hemodialysis. HISTORY OF PRESENT ILLNESS: Mr. Cho is a 76-year-old elderly male with a past medical history significant for longstanding hypertension, BPH, arthritis, anemia, end-stage renal disease, recurrent UTI, who was admitted from home with a chief complaint of loose watery diarrhea for about 2 to 3 weeks and the patient was found to have elevated WBC count on admission and also found to have a C. diff toxin positive. The patient is being treated for C. diff colitis. The patient is on IV Flagyl and p.o. vancomycin. The patient is feeling slightly better, not in any acute distress. BM x1 today. No chest pain. No palpitation. No fever. No cough. The patient complains of bilateral mild flank pain. No edema of the legs. Complains of poor appetite. PHYSICAL EXAMINATION: VITAL SIGNS: Blood pressure 158/85, pulse 91, respirations 20, temperature 98.1, saturation 98%. Height 5 feet 8 inches, and weight is 192 pounds. GENERAL: Mr. Cho is a 76-year-old elderly obese male, moderate-built, moderate-nourished, not in any acute distress. HEENT: Pupils normally reactive to light and accommodation. Conjunctivae pink. Sclerae anicteric. Tongue is moist and trachea is midline. LUNGS: Symmetric on both sides. Bilateral breath sounds present. Clear on auscultation. CVS: [place] at the fifth intercostal space, midclavicular area. S1, S2 audible. No murmur or gallop. ABDOMEN: Normal in appearance, soft, tympanic. No guarding. No rigidity. No hepatosplenomegaly. VISUAL EDUCATOR: The patient is alert, awake, oriented x3. Nonfocal neuro examination. Cranial nerves II through XII grossly intact. Sensory and motor system is within normal limits. EXTREMITIES: No cyanosis, no clubbing, no edema. CURRENT MEDICATIONS: Include hydralazine 25 mg p.o. b.i.d., doxycycline 100 mg p.o. q.12h., Flagyl 500 mg IV piggyback q.8h., Flomax 0.4 mg p.o. daily, Florastor 250 mg p.o. b.i.d., heparin 3300 units IV push in PermCath three times a week, multivitamin 1 tablet daily, Lasix 20 mg daily, Lopid 600 mg p.o. at bedtime, Maalox, Pepto-Bismol, Procrit 10,000 units three times a week Monday, Monday, Monday, Proscar 5 mg p.o. daily, Protonix 40 mg daily, Questran 4 gm p.o. b.i.d., Tylenol, vancomycin 250 mg p.o. q.6h., Vasotec 10 mg p.o. daily, Zemplar 2 mcg three times a week, allopurinol 100 mg p.o. daily. LABORATORY DATA: No new labs are available. Accu-Cheks 99, 123 and 125. Urine culture as of 03/17/2017, no growth. ASSESSMENT AND PLAN: In summary, Mr. Cho is a 76-year-old elderly obese male with hypertension, benign prostatic hypertrophy, end-stage renal disease, diarrhea, positive for Clostridium difficile toxin and CAT scan of the abdomen consistent with colitis. 1. End-stage renal disease. Continue hemodialysis three times a week; Monday, Monday and Monday. 2. Clostridium difficile colitis. 3. Anemia secondary to renal failure. 4. Hypertension. Continue his current medications, hydralazine and enalapril. Continue doxycycline. Continue Flagyl and vancomycin. Continue Epogen, Renvela, and Zemplar. We will follow with you. Thank you for allowing me to participate in your patient's care. We will check BMP, CBC and phosphorus level in a.m. Emir Kirk MD
[2017-03-20] MEDS: metroNIDAZOLE IV 500 mg/100 ml 500 MG/100 ML BAG IVPB SCH ×3 (06:18→21:00)
[2017-03-20 07:52] LABS: BASO # 0.1 K/uL (0.0-0.2); BASO % 0.8 % (0.0-2.0); EOS # 0.4 K/uL (0.0-0.7); EOS % 3.3 % (0.0-4.0); HEMATOCRIT 34.7 % (35.0-51.0); LYMPH # 1.6 K/uL (1.0-4.3); LYMPH % 14.6 % (20.0-40.0); MEAN CELL VOLUME 92.3 fL (80.0-94.0); MEAN CORPUSCULAR HEMOGLOBIN 29.7 pg (27.0-31.0); MEAN CORPUSCULAR HGB CONC 32.1 g/dL (33.0-37.0); MEAN PLATELET VOLUME 7.3 fL (7.2-11.7); MONO % 8.9 % (0.0-10.0); NRBC % 0.2 % (0.0-2.0); RED CELL DISTRIBUTION WIDTH 19.7 % (11.5-14.5); WHITE BLOOD COUNT 10.7 K/uL (4.8-10.8)
[2017-03-20 08:33] LABS: CALCIUM 8.2 mg/dl (8.6-10.4); PHOSPHOROUS 3.6 mg/dL (2.5-4.5); POTASSIUM 4.5 mmol/L (3.6-5.2)
[2017-03-20] MEDS: Cholestyramine 4 gm/Pkt UD PO SCH ×2 (08:50→09:10)
--- NOTE | 2017-03-20 09:15 | CP.PCM.PN ---
Subjective - Date & Time of Evaluation Date of Evaluation: 03/20/17 Time of Evaluation: 09:12 - Subjective Subjective: Patient states that he has not had a bowel movement today, and had only two bowel movements yesterday which were better formed. He denies having abdominal pain, nausea, vomiting. Objective - Vital Signs/Intake and Output Vital Signs (last 24 hours): Temp Pulse Resp BP Pulse Ox 97.8 F 106 H 20 133/78 97 03/20/17 00:32 03/20/17 00:32 03/20/17 00:32 03/20/17 00:32 03/20/17 00:32 Intake and Output: 03/20/17 03/20/17 06:59 18:59 Intake Total 100 Balance 100 - Medications Medications: Current Medications Acetaminophen (Tylenol 325mg Tab) 650 mg PO Q4H PRN PRN Reason: Fever >100.4 F Last Admin: 03/19/17 21:01 Dose: 650 mg Al Hydrox/Mg Hydrox/Simethicone (Maalox 30 Ml) 30 ml PO Q4H PRN PRN Reason: Heartburn Allopurinol (Zyloprim) 100 mg PO DAILY [facility] Last Admin: 03/19/17 10:10 Dose: 100 mg Bismuth Subsalicylate (Pepto Bismol) 262 mg PO Q4 [facility] Last Admin: 03/20/17 08:50 Dose: 262 mg Cholestyramine Resin (Questran) 4 gm PO BID@0900,2100 [facility] Stop: 03/20/17 12:00 Last Admin: 03/20/17 08:50 Dose: 4 gm Doxycycline Hyclate (Doryx) 100 mg PO Q12 [facility] Enalapril Maleate (Vasotec) 10 mg PO DAILY [facility] Last Admin: 03/19/17 10:09 Dose: 10 mg Epoetin Kyle (Procrit) 10,000 unit IV MWF [facility] Stop: 03/27/17 09:01 Last Admin: 03/17/17 11:56 Dose: 10,000 unit Finasteride (Proscar) 5 mg PO DAILY [facility] Last Admin: 03/19/17 10:14 Dose: 5 mg Furosemide (Lasix) 20 mg PO DAILY [facility] Last Admin: 03/19/17 10:00 Dose: 20 mg Gemfibrozil (Lopid) 600 mg PO HS [facility] Last Admin: 03/19/17 21:01 Dose: 600 mg Heparin Sodium (Porcine) (Heparin) 3,300 units IVP MWF [facility] Stop: 03/27/17 09:01 Last Admin: 03/17/17 11:54 Dose: 3,300 units Hydralazine HCl (Apresoline) 25 mg PO Q8 [facility] Last Admin: 03/20/17 06:18 Dose: 25 mg Metronidazole (Flagyl) 500 mg in 100 mls @ 100 mls/hr IVPB Q8 [facility] Last Admin: 03/20/17 06:18 Dose: 100 mls/hr Multivitamins (Hexavitamin) 1 tab PO DAILY [facility] Last Admin: 03/19/17 10:09 Dose: 1 tab Pantoprazole Sodium (Protonix Ec Tab) 40 mg PO DAILY [facility] Last Admin: 03/19/17 10:10 Dose: 40 mg Paricalcitol (Zemplar) 2 mcg IV [facility] Stop: 03/24/17 09:01 Last Admin: 03/17/17 11:56 Dose: 2 mcg Saccharomyces Boulardii (Florastor) 250 mg PO BID [facility] Last Admin: 03/19/17 17:00 Dose: 250 mg Tamsulosin HCl (Flomax) 0.4 mg PO DAILY [facility] Last Admin: 03/19/17 10:08 Dose: 0.4 mg Vancomycin HCl (Vancocin (Oral Or Rectal Use)) 250 mg PO Q6H [facility] Last Admin: 03/20/17 00:03 Dose: Not Given - Labs Labs: 03/20/17 07:35 03/20/17 07:35 PT 12.9 SECONDS (9.7-12.2) H 03/15/17 13:24 INR 1.2 03/15/17 13:24 APTT 29 SECONDS (21-34) 03/13/17 08:38 - Constitutional Appears: No Acute Distress - Head Exam Head Exam: ATRAUMATIC, NORMOCEPHALIC - Neck Exam Neck Exam: absent: Lymphadenopathy, Thyromegaly - Respiratory Exam Respiratory Exam: NORMAL BREATHING PATTERN. absent: Rales, Rhonchi, Wheezes - Cardiovascular Exam Cardiovascular Exam: REGULAR RHYTHM, +S1, +S2. absent: Gallop, Rubs, Murmur - GI/Abdominal Exam GI & Abdominal Exam: Soft, Normal Bowel Sounds. absent: Tenderness, Mass, Organomegaly - Rectal Exam Rectal Exam: Deferred - Extremities Exam Extremities Exam: absent: Calf Tenderness, Pedal Edema Assessment and Plan (1) C. difficile diarrhea Assessment & Plan: Frequency of bowel movements is improving. Will discontinue cholestyramine and observe. Status: Acute
[2017-03-20] MEDS ORDERED: Albuterol-Ipratrop 3 mg / 0.5 (3 ml) UD INH STA (09:50)
[2017-03-20] MEDS: Saccharomyces Boulardi 250 mg Cap PO SCH ×2 (10:20→18:00)
[2017-03-20] MEDS: Piperacill/Tazo 2.25gm in Dex 2.25 GM/50 ML BAG IVPB SCH ×2 (11:15→19:20)
--- NOTE | 2017-03-20 11:52 | RAD ---
Chest x-ray single frontal view History: Shortness of breath. Comparison: 01/01/2017 Findings: Moderate venous congestion. Prominent confluent consolidative changes at the right lung base and to a lesser extent left lung base. Trace left pleural effusion. Cardiomegaly. Calcification at the aortic knob. Right central venous catheter tip extending into the right atrium. Right hilar prominence. Degenerative changes in the spine and shoulders. Impression: Moderate venous congestion. Prominent confluent consolidative changes at the right lung base and to a lesser extent left lung base. Trace left pleural effusion. Cardiomegaly. Calcification at the aortic knob. Right central venous catheter tip extending into the right atrium. Right hilar prominence. Degenerative changes in the spine and shoulders.
[2017-03-20] MEDS: Paricalcitol 2 mcg/ml Inj IV SCH (12:13)
[2017-03-20] MEDS: Epoetin Alfa 10,000 unit/ml Dialysis IV SCH (12:14)
--- NOTE | 2017-03-20 12:55 | CP.PCM.PN ---
Subjective - Date & Time of Evaluation Date of Evaluation: 03/20/17 Time of Evaluation: 12:55 - Subjective Subjective: pt is seen and examined, padmini harry consult is dictated #[id number] seen in hd , uf 2.3 lit Objective - Vital Signs/Intake and Output Vital Signs (last 24 hours): Temp Pulse Resp BP Pulse Ox 98.1 F 121 H 20 123/73 100 03/20/17 10:25 03/20/17 10:25 03/20/17 10:25 03/20/17 12:25 03/20/17 10:25 Intake and Output: 03/20/17 03/20/17 06:59 18:59 Intake Total 100 Balance 100 - Medications Medications: Current Medications Acetaminophen (Tylenol 325mg Tab) 650 mg PO Q4H PRN PRN Reason: Fever >100.4 F Last Admin: 03/19/17 21:01 Dose: 650 mg Al Hydrox/Mg Hydrox/Simethicone (Maalox 30 Ml) 30 ml PO Q4H PRN PRN Reason: Heartburn Albuterol/Ipratropium (Duoneb 3 Mg/0.5 Mg (3 Ml) Ud) 3 ml INH RQ6 [facility] Allopurinol (Zyloprim) 100 mg PO DAILY [facility] Last Admin: 03/19/17 10:10 Dose: 100 mg Bismuth Subsalicylate (Pepto Bismol) 262 mg PO Q4 [facility] Last Admin: 03/20/17 12:05 Dose: Not Given Enalapril Maleate (Vasotec) 10 mg PO DAILY [facility] Last Admin: 03/19/17 10:09 Dose: 10 mg Epoetin Kyle (Procrit) 10,000 unit IV [facility] Stop: 03/27/17 09:01 Last Admin: 03/20/17 12:14 Dose: 10,000 unit Finasteride (Proscar) 5 mg PO DAILY [facility] Last Admin: 03/19/17 10:14 Dose: 5 mg Furosemide (Lasix) 40 mg IVP DAILY [facility] Gemfibrozil (Lopid) 600 mg PO HS [facility] Last Admin: 03/19/17 21:01 Dose: 600 mg Heparin Sodium (Porcine) (Heparin) 3,300 units IVP F [facility] Stop: 03/27/17 09:01 Last Admin: 03/20/17 12:15 Dose: 3,300 units Hydralazine HCl (Apresoline) 25 mg PO Q8 [facility] Last Admin: 03/20/17 06:18 Dose: 25 mg Metronidazole (Flagyl) 500 mg in 100 mls @ 100 mls/hr IVPB Q8 [facility] Last Admin: 03/20/17 06:18 Dose: 100 mls/hr Piperacillin Sod/Tazobactam Sod (Zosyn 2.25 Gm Iv Premix) 2.25 gm in 50 mls @ 100 mls/hr IVPB Q8H [facility] Last Admin: 03/20/17 11:15 Dose: Not Given Multivitamins (Hexavitamin) 1 tab PO DAILY [facility] Last Admin: 03/19/17 10:09 Dose: 1 tab Pantoprazole Sodium (Protonix Ec Tab) 40 mg PO DAILY [facility] Last Admin: 03/19/17 10:10 Dose: 40 mg Paricalcitol (Zemplar) 2 mcg IV MWF [facility] Stop: 03/24/17 09:01 Last Admin: 03/20/17 12:13 Dose: 2 mcg Saccharomyces Boulardii (Florastor) 250 mg PO BID [facility] Last Admin: 03/20/17 10:20 Dose: Not Given Tamsulosin HCl (Flomax) 0.4 mg PO DAILY [facility] Last Admin: 03/19/17 10:08 Dose: 0.4 mg Vancomycin HCl (Vancocin (Oral Or Rectal Use)) 250 mg PO Q6H [facility] Last Admin: 03/20/17 12:05 Dose: Not Given - Labs Labs: 03/20/17 07:35 03/20/17 07:35 PT 12.9 SECONDS (9.7-12.2) H 03/15/17 13:24 INR 1.2 03/15/17 13:24 APTT 29 SECONDS (21-34) 03/13/17 08:38
[2017-03-20 13:40] LABS: PROSTATE SPECIFIC ANTIGEN 1.05 ng/mL (0.00-4.0)
[2017-03-20] MEDS: Albuterol-Ipratrop 3 mg / 0.5 (3 ml) UD INH SCH ×2 (14:03→20:30)
[2017-03-20] MEDS: Multiple Vitamins Tab PO SCH (14:57)
[2017-03-20] MEDS: Pantoprazole 40 mg EC Tab PO SCH (14:57)
--- NOTE | 2017-03-20 16:28 | CP.PCM.PN ---
Subjective - Date & Time of Evaluation Date of Evaluation: 03/20/17 Time of Evaluation: 16:00 - Subjective Subjective: Patient seen today, c/o sob , and dysuria , denies any diarrhea, N/v a febrile Objective - Vital Signs/Intake and Output Vital Signs (last 24 hours): Temp Pulse Resp BP Pulse Ox 97.6 F 108 H 20 136/78 97 03/20/17 16:01 03/20/17 16:01 03/20/17 16:01 03/20/17 16:01 03/20/17 16:01 Intake and Output: 03/20/17 03/20/17 06:59 18:59 Intake Total 100 860 Output Total 50 Balance 100 810 - Medications Medications: Current Medications Acetaminophen (Tylenol 325mg Tab) 650 mg PO Q4H PRN PRN Reason: Fever >100.4 F Last Admin: 03/19/17 21:01 Dose: 650 mg Al Hydrox/Mg Hydrox/Simethicone (Maalox 30 Ml) 30 ml PO Q4H PRN PRN Reason: Heartburn Albuterol/Ipratropium (Duoneb 3 Mg/0.5 Mg (3 Ml) Ud) 3 ml INH RQ6 [facility] Last Admin: 03/20/17 14:03 Dose: Not Given Allopurinol (Zyloprim) 100 mg PO DAILY [facility] Last Admin: 03/20/17 14:57 Dose: 100 mg Bismuth Subsalicylate (Pepto Bismol) 262 mg PO Q4 [facility] Last Admin: 03/20/17 12:05 Dose: Not Given Enalapril Maleate (Vasotec) 10 mg PO DAILY [facility] Last Admin: 03/20/17 14:49 Dose: Not Given Epoetin Kyle (Procrit) 10,000 unit IV [facility] Stop: 03/27/17 09:01 Last Admin: 03/20/17 12:14 Dose: 10,000 unit Finasteride (Proscar) 5 mg PO DAILY [facility] Last Admin: 03/20/17 14:50 Dose: 5 mg Furosemide (Lasix) 40 mg IVP DAILY [facility] Gemfibrozil (Lopid) 600 mg PO HS [facility] Last Admin: 03/19/17 21:01 Dose: 600 mg Heparin Sodium (Porcine) (Heparin) 3,300 units IVP [facility] Stop: 03/27/17 09:01 Last Admin: 03/20/17 12:15 Dose: 3,300 units Hydralazine HCl (Apresoline) 25 mg PO Q8 [facility] Last Admin: 03/20/17 14:48 Dose: 25 mg Metronidazole (Flagyl) 500 mg in 100 mls @ 100 mls/hr IVPB Q8 [facility] Last Admin: 03/20/17 14:57 Dose: 100 mls/hr Piperacillin Sod/Tazobactam Sod (Zosyn 2.25 Gm Iv Premix) 2.25 gm in 50 mls @ 100 mls/hr IVPB Q8H [facility] Last Admin: 03/20/17 11:15 Dose: Not Given Multivitamins (Hexavitamin) 1 tab PO DAILY [facility] Last Admin: 03/20/17 14:57 Dose: 1 tab Pantoprazole Sodium (Protonix Ec Tab) 40 mg PO DAILY [facility] Last Admin: 03/20/17 14:57 Dose: 40 mg Paricalcitol (Zemplar) 2 mcg IV [facility] Stop: 03/24/17 09:01 Last Admin: 03/20/17 12:13 Dose: 2 mcg Saccharomyces Boulardii (Florastor) 250 mg PO BID [facility] Last Admin: 03/20/17 10:20 Dose: Not Given Vancomycin HCl (Vancocin (Oral Or Rectal Use)) 250 mg PO Q6H [facility] Last Admin: 03/20/17 12:05 Dose: Not Given - Labs Labs: 03/20/17 07:35 03/20/17 07:35 PT 12.9 SECONDS (9.7-12.2) H 03/15/17 13:24 INR 1.2 03/15/17 13:24 APTT 29 SECONDS (21-34) 03/13/17 08:38 Assessment and Plan - Assessment and Plan (Free Text) Assessment: A/P 76 yr old male admitted for diarrhea/ stool for c- dif+ on vanco and improving c/o sob and dyspnea on exertion cxr - DONE -Prominent confluent consolidative changes at the right lung base and to a lesser extent left lung base. Trace left pleural effusion.Cardiomegaly.Calcification at the aortic knob. D/w DR. Cole will start lasix 40 mg iv US SHOWS - moderate urinary retention, Dr. Montoya on consult for urinary retention D/W DR. Malone , recommends to do bladder scan badder scan done - vol 288 . pt stated has the urge to void but could not void D/W DR. Montoya , recommends to incr. flomax and if pt uncomfortable to place a pierre cath and leave pierre in an d monitor intake and out put The above plan discussed with Dr. Cole, who agrees
--- NOTE | 2017-03-20 22:16 | CP.PCM.PN ---
Subjective - Date & Time of Evaluation Date of Evaluation: 03/20/17 Time of Evaluation: 20:00 - Subjective Subjective: Pt seen and evalauted, c/o shortness of breath, he is vague about it, not coughing urinary retention is there pt is on HD Objective - Vital Signs/Intake and Output Vital Signs (last 24 hours): Temp Pulse Resp BP Pulse Ox 97.6 F 108 H 20 136/78 97 03/20/17 16:01 03/20/17 16:01 03/20/17 16:01 03/20/17 16:01 03/20/17 16:01 Intake and Output: 03/20/17 03/21/17 18:59 06:59 Intake Total 860 550 Output Total 50 Balance 810 550 - Medications Medications: Current Medications Acetaminophen (Tylenol 325mg Tab) 650 mg PO Q4H PRN PRN Reason: Fever >100.4 F Last Admin: 03/19/17 21:01 Dose: 650 mg Al Hydrox/Mg Hydrox/Simethicone (Maalox 30 Ml) 30 ml PO Q4H PRN PRN Reason: Heartburn Albuterol/Ipratropium (Duoneb 3 Mg/0.5 Mg (3 Ml) Ud) 3 ml INH RQ6 [facility] Last Admin: 03/20/17 20:30 Dose: 3 ml Allopurinol (Zyloprim) 100 mg PO DAILY [facility] Last Admin: 03/20/17 14:57 Dose: 100 mg Bismuth Subsalicylate (Pepto Bismol) 262 mg PO Q4 [facility] Last Admin: 03/20/17 20:57 Dose: 262 mg Enalapril Maleate (Vasotec) 10 mg PO DAILY [facility] Last Admin: 03/20/17 14:49 Dose: Not Given Epoetin Kyle (Procrit) 10,000 unit IV MWF [facility] Stop: 03/27/17 09:01 Last Admin: 03/20/17 12:14 Dose: 10,000 unit Finasteride (Proscar) 5 mg PO DAILY [facility] Last Admin: 03/20/17 14:50 Dose: 5 mg Furosemide (Lasix) 40 mg IVP DAILY [facility] Gemfibrozil (Lopid) 600 mg PO HS [facility] Last Admin: 03/20/17 21:11 Dose: 600 mg Heparin Sodium (Porcine) (Heparin) 3,300 units IVP MWF [facility] Stop: 03/27/17 09:01 Last Admin: 03/20/17 12:15 Dose: 3,300 units Hydralazine HCl (Apresoline) 25 mg PO Q8 [facility] Last Admin: 03/20/17 21:00 Dose: 25 mg Metronidazole (Flagyl) 500 mg in 100 mls @ 100 mls/hr IVPB Q8 [facility] Last Admin: 03/20/17 21:00 Dose: 100 mls/hr Piperacillin Sod/Tazobactam Sod (Zosyn 2.25 Gm Iv Premix) 2.25 gm in 50 mls @ 100 mls/hr IVPB Q8H [facility] Last Admin: 03/20/17 19:20 Dose: 100 mls/hr Multivitamins (Hexavitamin) 1 tab PO DAILY [facility] Last Admin: 03/20/17 14:57 Dose: 1 tab Pantoprazole Sodium (Protonix Ec Tab) 40 mg PO DAILY [facility] Last Admin: 03/20/17 14:57 Dose: 40 mg Paricalcitol (Zemplar) 2 mcg IV [facility] Stop: 03/24/17 09:01 Last Admin: 03/20/17 12:13 Dose: 2 mcg Saccharomyces Boulardii (Florastor) 250 mg PO BID [facility] Last Admin: 03/20/17 18:00 Dose: 250 mg Tamsulosin HCl (Flomax) 0.4 mg PO BID [facility] Last Admin: 03/20/17 18:01 Dose: 0.4 mg Vancomycin HCl (Vancocin (Oral Or Rectal Use)) 250 mg PO Q6H [facility] Last Admin: 03/20/17 18:01 Dose: 250 mg - Labs Labs: 03/20/17 07:35 03/20/17 07:35 PT 12.9 SECONDS (9.7-12.2) H 03/15/17 13:24 INR 1.2 03/15/17 13:24 APTT 29 SECONDS (21-34) 03/13/17 08:38 - Constitutional Appears: No Acute Distress - Head Exam Head Exam: ATRAUMATIC, NORMAL INSPECTION, NORMOCEPHALIC - Eye Exam Eye Exam: EOMI, Normal appearance, PERRL Pupil Exam: NORMAL ACCOMODATION, PERRL - Respiratory Exam Respiratory Exam: Decreased Breath Sounds, Rales - Cardiovascular Exam Cardiovascular Exam: REGULAR RHYTHM, +S1, +S2. absent: Murmur - GI/Abdominal Exam GI & Abdominal Exam: Tenderness - Rectal Exam Rectal Exam: Deferred Assessment and Plan (1) Abdominal tenderness, LLQ (left lower quadrant) Status: Acute (2) Acute diarrhea Status: Acute (3) C. difficile diarrhea Status: Acute (4) CKD (chronic kidney disease) Status: Acute (5) Complicated urinary tract infection Status: Acute (6) Shortness of breath Assessment & Plan: most likely due to fluid over load less likely pnemonia as pt has no cough monitor pt if needed will order CT of chest Status: Acute (7) Urinary retention Status: Acute - Assessment and Plan (Free Text) Plan: A/P 76 yr old male admitted for diarrhea/ stool for c- dif+ on vanco and improving c/o sob and dyspnea on exertion cxr - DONE -Prominent confluent consolidative changes at the right lung base and to a lesser extent left lung base. Trace left pleural effusion.Cardiomegaly.Calcification at the aortic knob. A/P 76 yr old male admitted for diarrhea/ stool for c- dif+ on vanco and improving c/o sob and dyspnea on exertion cxr - DONE -Prominent confluent consolidative changes at the right lung base and to a lesser extent left lung base.
--- NOTE | 2017-03-20 23:30 | CP.PCM.CON ---
Past Patient History - Infectious Disease Hx of Infectious Diseases: None - Past Medical History & Family History Past Medical History?: Yes - Past Social History Smoking Status: Former Smoker - CARDIAC Hx Hypercholesterolemia: Yes Hx Hypertension: Yes - PULMONARY Hx Respiratory Disorders: No Other/Comment: former smoker, SOB with exertion - NEUROLOGICAL Hx Neurological Disorder: No - HEENT Hx HEENT Problems: No - RENAL Hx Chronic Kidney Disease: Yes - ENDOCRINE/METABOLIC Hx Diabetes Mellitus Type 2: Yes - HEMATOLOGICAL/ONCOLOGICAL Hx Anemia: Yes - INTEGUMENTARY Hx Dermatological Problems: No - MUSCULOSKELETAL/RHEUMATOLOGICAL Hx Musculoskeletal Disorders: Yes Hx Falls: Yes Other/Comment: BLE weakness - GASTROINTESTINAL Hx Gastritis: Yes - GENITOURINARY/GYNECOLOGICAL Hx Genitourinary Disorders: Yes Other/Comment: BPH - PSYCHIATRIC Hx Substance Use: No - SURGICAL HISTORY Hx Appendectomy: Yes - ANESTHESIA Hx Anesthesia: Yes Meds Allergies/Adverse Reactions: Allergies Allergy/AdvReac Type Severity Reaction Status Date / Time calcium carbonate [From Tums] Allergy Verified 03/11/17 16:34 dates Allergy Uncoded 03/11/17 16:34 - Medications Medications: Current Medications Acetaminophen (Tylenol 325mg Tab) 650 mg PO Q4H PRN PRN Reason: Fever >100.4 F Last Admin: 03/19/17 21:01 Dose: 650 mg Al Hydrox/Mg Hydrox/Simethicone (Maalox 30 Ml) 30 ml PO Q4H PRN PRN Reason: Heartburn Albuterol/Ipratropium (Duoneb 3 Mg/0.5 Mg (3 Ml) Ud) 3 ml INH RQ6 [facility] Last Admin: 03/20/17 20:30 Dose: 3 ml Allopurinol (Zyloprim) 100 mg PO DAILY [facility] Last Admin: 03/20/17 14:57 Dose: 100 mg Bismuth Subsalicylate (Pepto Bismol) 262 mg PO Q4 [facility] Last Admin: 03/20/17 20:57 Dose: 262 mg Enalapril Maleate (Vasotec) 10 mg PO DAILY [facility] Last Admin: 03/20/17 14:49 Dose: Not Given Epoetin Kyle (Procrit) 10,000 unit IV MWF [facility] Stop: 03/27/17 09:01 Last Admin: 03/20/17 12:14 Dose: 10,000 unit Finasteride (Proscar) 5 mg PO DAILY [facility] Last Admin: 03/20/17 14:50 Dose: 5 mg Furosemide (Lasix) 40 mg IVP DAILY [facility] Gemfibrozil (Lopid) 600 mg PO HS [facility] Last Admin: 03/20/17 21:11 Dose: 600 mg Heparin Sodium (Porcine) ([facility]arin) [facility] Stop: 03/27/17 09:01 Last Admin: 03/20/17 12:15 Dose: 3,300 units Hydralazine HCl (Apresoline) 25 mg PO Q8 [facility] Last Admin: 03/20/17 21:00 Dose: 25 mg Metronidazole (Flagyl) 500 mg in 100 mls @ 100 mls/hr IVPB Q8 [facility] Last Admin: 03/20/17 21:00 Dose: 100 mls/hr Piperacillin Sod/Tazobactam Sod (Zosyn 2.25 Gm Iv Premix) 2.25 gm in 50 mls @ 100 mls/hr IVPB Q8H [facility] Last Admin: 03/20/17 19:20 Dose: 100 mls/hr Multivitamins (Hexavitamin) 1 tab PO DAILY [facility] Last Admin: 03/20/17 14:57 Dose: 1 tab Pantoprazole Sodium (Protonix Ec Tab) 40 mg PO DAILY [facility] Last Admin: 03/20/17 14:57 Dose: 40 mg Paricalcitol (Zemplar) 2 mcg IV [facility] Stop: 03/24/17 09:01 Last Admin: 03/20/17 12:13 Dose: 2 mcg Saccharomyces Boulardii (Florastor) 250 mg PO BID [facility] Last Admin: 03/20/17 18:00 Dose: 250 mg Tamsulosin HCl (Flomax) 0.4 mg PO BID [facility] Last Admin: 03/20/17 18:01 Dose: 0.4 mg Vancomycin HCl (Vancocin (Oral Or Rectal Use)) 250 mg PO Q6H [facility] Last Admin: 03/20/17 18:01 Dose: 250 mg Results - Vital Signs Recent Vital Signs: Last Vital Signs Temp 97.6 F 03/20/17 16:01 Pulse 108 H 03/20/17 16:01 Resp 20 03/20/17 16:01 BP 136/78 03/20/17 16:01 Pulse Ox 97 03/20/17 16:01 - Labs Result Diagrams: 03/20/17 07:35 03/20/17 07:35 Labs: Laboratory Results - last 24 hr 03/20/17 03/20/17 03/20/17 06:46 07:35 07:35 WBC 10.7 RBC 3.76 L Hgb 11.1 L Hct 34.7 L MCV 92.3 MCH 29.7 MCHC 32.1 L RDW 19.7 H Plt Count 289 MPV 7.3 Neut % (Auto) 72.4 Lymph % (Auto) 14.6 L Tama % (Auto) 8.9 Eos % (Auto) 3.3 Baso % (Auto) 0.8 Neut # 7.8 H Lymph # 1.6 Tama # 1.0 H Eos # 0.4 Baso # 0.1 Sodium 136 Potassium 4.5 Chloride 105 Carbon Dioxide 25 Anion Gap 11 BUN 25 H Creatinine 5.0 H Est GFR ( Amer) 14 Est GFR (Non-Af Amer) 11 POC Glucose (mg/dL) 74 Random Glucose 75 Calcium 8.2 L Phosphorus 3.6 Triglycerides 68 Cholesterol 121 LDL Cholesterol Direct 36 HDL Cholesterol 52 Prostate Specific Ag 1.05 03/20/17 03/20/17 03/20/17 12:11 16:26 21:10 WBC RBC Hgb Hct MCV MCH MCHC RDW Plt Count MPV Neut % (Auto) Lymph % (Auto) [place] % (Auto) Eos % (Auto) Baso % (Auto) Neut # Lymph # Tama # Eos # Baso # Sodium Potassium Chloride Carbon Dioxide Anion Gap BUN Creatinine Est GFR ( Amer) Est GFR (Non-Af Amer) POC Glucose (mg/dL) 130 H 182 H 101 Random Glucose Calcium Phosphorus Triglycerides Cholesterol LDL Cholesterol Direct HDL Cholesterol Prostate Specific Ag Assessment & Plan - Assessment and Plan (Free Text) Assessment: Imp: renal failure difficulty voiding Hx of BPH full note t/f YS - Date & Time Date: 03/20/17 Time: 11:55
[2017-03-21] MEDS: Bismuth Subsalicylate 262 mg Chew Tab PO SCH ×8 (00:24→23:54)
[2017-03-21] MEDS: Vancomycin 125 MG/5 ML SOLN (ORAL/RECTAL) PO SCH ×5 (00:28→23:54)
[2017-03-21] MEDS: Albuterol-Ipratrop 3 mg / 0.5 (3 ml) UD INH SCH ×4 (01:44→21:55)
--- NOTE | 2017-03-21 02:46 | PN ---
DATE: FOLLOWUP RENAL CONSULTATION LOCATION: The patient is located in room 557, bed A. REQUESTED BY: Yeison Cole MD REASON FOR FOLLOWUP: End-stage renal disease, for continuation of hemodialysis. HISTORY OF PRESENT ILLNESS: Mr. Cho is a 76-year-old elderly male with a past medical history significant for longstanding hypertension, BPH, arthritis, end-stage renal disease, on hemodialysis 3 times a week, Monday, and Monday, was admitted with severe diarrhea and found to have elevated WBC count and C. diff colitis. The patient is being treated for C. diff colitis on IV Flagyl and p.o. vancomycin. The patient is feeling better, not in acute distress. Denies any chest pain or palpitation. Denies any fever or cough. No abdominal pain. No nausea, vomiting, diarrhea. Complains of poor appetite. The patient was seen and examined during dialysis this morning. Ultrafiltration goal is about 2.3 L and tolerating very well. PHYSICAL EXAMINATION: VITAL SIGNS: As follows, blood pressure 136/78, pulse 108, respirations 20, temperature 97.6, saturation 97%. Height 5 feet 8 inches and weight is 192 pounds. GENERAL: Mr. Cho is a 76-year-old elderly male, well-built, well-nourished, not in acute distress. HEENT: Pupils normal, reactive to light and accommodation. Conjunctivae pink. Sclerae anicteric. Tongue is moist and trachea is midline. LUNGS: Symmetric on both sides. Bilateral breath sounds present. Clear on auscultation. CARDIOVASCULAR: [place] at the fifth intercostal space, midclavicular line. S1 and S2 audible. No murmur or gallop. ABDOMEN: Normal in appearance, soft, tympanic. No guarding. No rigidity. No hepatosplenomegaly. CENTRAL NERVOUS SYSTEM: The patient is alert, awake, oriented x3. Nonfocal neuro examination. Cranial nerves II through XII grossly intact. Sensory and motor system is within normal limits. EXTREMITIES: No cyanosis, no clubbing, no edema. CURRENT MEDICATIONS: Include as follows, hydralazine 25 mg p.o. q.8h., DuoNeb inhaler 3 mL q.6h., Flagyl 500 mg IV q.8h., Flomax 0.4 mg p.o. b.i.d., Florastor, heparin 3300 units in each port after dialysis in [facility], multivitamin 1 tablet daily, Lasix 40 mg daily, Lopid 600 mg p.o. at bedtime, Maalox, Pepto-Bismol, Procrit 10,000 units 3 times a week, Proscar 5 mg p.o. daily, Protonix 40 mg daily, vancomycin 250 mg p.o. q.6h., enalapril, Vasotec 10 mg p.o. daily, Zemplar 2 mcg IV 3 times a week, Zosyn 2.25 g IV q.8h. and allopurinol 100 mg p.o. daily. LABORATORY DATA: Include as follows. Urine culture is negative as of 03/17/2017. Chest x-ray as of 03/20/2017, moderate venous congestion and prominent confluent consolidative changes at the right lung base and to a less extent left lung base, trace left pleural effusion, cardiomegaly, calcification at the aortic knob, the right central venous catheter tube extending into the right atrium, right hilar prominence, degenerative changes in the spine and shoulder. Other laboratory data as of 03/20/2017, WBC 10.7, hemoglobin 11.1, hematocrit is 34.7, platelets 289. Sodium 136, potassium 4.5, chloride 105, CO2 of 25, BUN 25, creatinine 5.0, glucose 75, calcium 8.2, phosphorus 3.6, triglyceride 68, cholesterol 121, LDL 36, HDL 52. PSA 1.05. IMPRESSION AND PLAN: In summary, Mr. Cho is a 76-year-old elderly obese male with a history of hypertension, BPH, arthritis, recurrent urinary tract infection, end-stage renal disease, on hemodialysis 3 times a week, Monday, and Monday, was admitted with watery diarrhea and elevated WBC count, and found to have Clostridium difficile colitis. 1. End-stage renal disease. Continue hemodialysis 3 times a week, Monday, Monday, and Monday. 2. Fluid overload, rule out congestive heart failure versus pneumonia. 3. Clostridium difficile colitis. 4. Hypertension. Blood pressure is stable. 5. Anemia secondary to renal failure. Continue his current medications, vancomycin, Flagyl and Zosyn as per ID recommendation. Continue Procrit during hemodialysis. We will follow with you. Out of bed to chair, consider physical therapy evaluation, tolerating hemodialysis and ultrafiltration about 2 L. Thank you for allowing me to participate in your patient's care. Emir Kirk MD
[2017-03-21] MEDS: Piperacill/Tazo 2.25gm in Dex 2.25 GM/50 ML BAG IVPB SCH ×3 (02:49→18:07)
[2017-03-21] MEDS: metroNIDAZOLE IV 500 mg/100 ml 500 MG/100 ML BAG IVPB SCH ×3 (06:28→21:09)
[2017-03-21] MEDS: Multiple Vitamins Tab PO SCH (09:06)
[2017-03-21] MEDS: Saccharomyces Boulardi 250 mg Cap PO SCH ×2 (09:06→18:08)
[2017-03-21] MEDS: Pantoprazole 40 mg EC Tab PO SCH (09:06)
--- NOTE | 2017-03-21 10:54 | CP.PCM.PN ---
Subjective - Date & Time of Evaluation Date of Evaluation: 03/21/17 Time of Evaluation: 10:53 - Subjective Subjective: pt is seen and examined, follow up consult is dictated #[id number] hd in am Objective - Vital Signs/Intake and Output Vital Signs (last 24 hours): Temp Pulse Resp BP Pulse Ox 97.8 F 93 H 20 105/60 97 03/21/17 07:00 03/21/17 07:00 03/21/17 07:00 03/21/17 09:05 03/21/17 07:00 Intake and Output: 03/21/17 03/21/17 06:59 18:59 Intake Total 1000 Output Total 650 Balance 350 - Medications Medications: Current Medications Acetaminophen (Tylenol 325mg Tab) 650 mg PO Q4H PRN PRN Reason: Fever >100.4 F Last Admin: 03/21/17 03:30 Dose: 650 mg Al Hydrox/Mg Hydrox/Simethicone (Maalox 30 Ml) 30 ml PO Q4H PRN PRN Reason: Heartburn Albuterol/Ipratropium (Duoneb 3 Mg/0.5 Mg (3 Ml) Ud) 3 ml INH RQ6 [facility] Last Admin: 03/21/17 08:11 Dose: 3 ml Allopurinol (Zyloprim) 100 mg PO DAILY [facility] Last Admin: 03/21/17 09:06 Dose: 100 mg Bismuth Subsalicylate (Pepto Bismol) 262 mg PO Q4 [facility] Last Admin: 03/21/17 09:06 Dose: 262 mg Enalapril Maleate (Vasotec) 10 mg PO DAILY [facility] Last Admin: 03/21/17 09:05 Dose: Not Given Epoetin Kyle (Procrit) 10,000 unit IV [facility] Stop: 03/27/17 09:01 Last Admin: 03/20/17 12:14 Dose: 10,000 unit Finasteride (Proscar) 5 mg PO DAILY [facility] Last Admin: 03/21/17 09:07 Dose: 5 mg Furosemide (Lasix) 40 mg IVP DAILY [facility] Gemfibrozil (Lopid) 600 mg PO HS [facility] Last Admin: 03/20/17 21:11 Dose: 600 mg Heparin Sodium (Porcine) (Heparin) 3,300 units IVP [facility] Stop: 03/27/17 09:01 Last Admin: 03/20/17 12:15 Dose: 3,300 units Hydralazine HCl (Apresoline) 25 mg PO Q8 [facility] Last Admin: 03/21/17 06:39 Dose: 25 mg Metronidazole (Flagyl) 500 mg in 100 mls @ 100 mls/hr IVPB Q8 [facility] Last Admin: 03/21/17 06:28 Dose: 100 mls/hr Piperacillin Sod/Tazobactam Sod (Zosyn 2.25 Gm Iv Premix) 2.25 gm in 50 mls @ 100 mls/hr IVPB Q8H [facility] Last Admin: 03/21/17 02:49 Dose: 100 mls/hr Multivitamins (Hexavitamin) 1 tab PO DAILY [facility] Last Admin: 03/21/17 09:06 Dose: 1 tab Pantoprazole Sodium (Protonix Ec Tab) 40 mg PO DAILY [facility] Last Admin: 03/21/17 09:06 Dose: 40 mg Paricalcitol (Zemplar) 2 mcg IV MWF [facility] Stop: 03/24/17 09:01 Last Admin: 03/20/17 12:13 Dose: 2 mcg Saccharomyces Boulardii (Florastor) 250 mg PO BID [facility] Last Admin: 03/21/17 09:06 Dose: 250 mg Tamsulosin HCl (Flomax) 0.4 mg PO BID [facility] Last Admin: 03/21/17 09:07 Dose: 0.4 mg Vancomycin HCl (Vancocin (Oral Or Rectal Use)) 250 mg PO Q6H [facility] Last Admin: 03/21/17 06:29 Dose: 250 mg - Labs Labs: 03/20/17 07:35 03/20/17 07:35 PT 12.9 SECONDS (9.7-12.2) H 03/15/17 13:24 INR 1.2 03/15/17 13:24 APTT 29 SECONDS (21-34) 03/13/17 08:38
--- NOTE | 2017-03-21 11:35 | CP.PCM.PN ---
Subjective - Date & Time of Evaluation Date of Evaluation: 03/21/17 Time of Evaluation: 11:34 - Subjective Subjective: weak.labs,vitals noted. Objective - Vital Signs/Intake and Output Vital Signs (last 24 hours): Temp Pulse Resp BP Pulse Ox 97.8 F 111 H 20 105/60 96 03/21/17 07:00 03/21/17 11:10 03/21/17 07:00 03/21/17 09:05 03/21/17 11:10 Intake and Output: 03/21/17 03/21/17 06:59 18:59 Intake Total 1000 Output Total 650 Balance 350 - Medications Medications: Current Medications Acetaminophen (Tylenol 325mg Tab) 650 mg PO Q4H PRN PRN Reason: Fever >100.4 F Last Admin: 03/21/17 03:30 Dose: 650 mg Al Hydrox/Mg Hydrox/Simethicone (Maalox 30 Ml) 30 ml PO Q4H PRN PRN Reason: Heartburn Albuterol/Ipratropium (Duoneb 3 Mg/0.5 Mg (3 Ml) Ud) 3 ml INH RQ6 [facility] Last Admin: 03/21/17 08:11 Dose: 3 ml Allopurinol (Zyloprim) 100 mg PO DAILY [facility] Last Admin: 03/21/17 09:06 Dose: 100 mg Bismuth Subsalicylate (Pepto Bismol) 262 mg PO Q4 [facility] Last Admin: 03/21/17 09:06 Dose: 262 mg Enalapril Maleate (Vasotec) 10 mg PO DAILY [facility] Last Admin: 03/21/17 09:05 Dose: Not Given Epoetin Kyle (Procrit) 10,000 unit IV [facility] [place] Stop: 03/27/17 09:01 Last Admin: 03/20/17 12:14 Dose: 10,000 unit Finasteride (Proscar) 5 mg PO DAILY [facility] Last Admin: 03/21/17 09:07 Dose: 5 mg Furosemide (Lasix) 40 mg IVP DAILY [facility] Gemfibrozil (Lopid) 600 mg PO HS [facility] Last Admin: 03/20/17 21:11 Dose: 600 mg Heparin Sodium (Porcine) (Heparin) 3,300 units IVP F [facility] Stop: 03/27/17 09:01 Last Admin: 03/20/17 12:15 Dose: 3,300 units Hydralazine HCl (Apresoline) 25 mg PO Q8 [facility] Last Admin: 03/21/17 06:39 Dose: 25 mg Metronidazole (Flagyl) 500 mg in 100 mls @ 100 mls/hr IVPB Q8 [facility] Last Admin: 03/21/17 06:28 Dose: 100 mls/hr Piperacillin Sod/Tazobactam Sod (Zosyn 2.25 Gm Iv Premix) 2.25 gm in 50 mls @ 100 mls/hr IVPB Q8H [facility] Last Admin: 03/21/17 02:49 Dose: 100 mls/hr Multivitamins (Hexavitamin) 1 tab PO DAILY [facility] Last Admin: 03/21/17 09:06 Dose: 1 tab Pantoprazole Sodium (Protonix Ec Tab) 40 mg PO DAILY [facility] Last Admin: 03/21/17 09:06 Dose: 40 mg Paricalcitol (Zemplar) 2 mcg IV MWF [facility] Stop: 03/24/17 09:01 Last Admin: 03/20/17 12:13 Dose: 2 mcg Saccharomyces Boulardii (Florastor) 250 mg PO BID [facility] Last Admin: 03/21/17 09:06 Dose: 250 mg Tamsulosin HCl (Flomax) 0.4 mg PO BID [facility] Last Admin: 03/21/17 09:07 Dose: 0.4 mg Vancomycin HCl (Vancocin (Oral Or Rectal Use)) 250 mg PO Q6H [facility] Last Admin: 03/21/17 06:29 Dose: 250 mg - Labs Labs: 03/20/17 07:35 03/20/17 07:35 PT 12.9 SECONDS (9.7-12.2) H 03/15/17 13:24 INR 1.2 03/15/17 13:24 APTT 29 SECONDS (21-34) 03/13/17 08:38 - Constitutional Appears: In Acute Distress, Chronically Ill - Head Exam Head Exam: NORMOCEPHALIC - Respiratory Exam Respiratory Exam: Clear to Ausculation Bilateral - Cardiovascular Exam Cardiovascular Exam: REGULAR RHYTHM - GI/Abdominal Exam GI & Abdominal Exam: Soft - Extremities Exam Extremities Exam: absent: Pedal Edema - Neurological Exam Neurological Exam: Alert, Oriented x3 Assessment and Plan - Assessment and Plan (Free Text) Assessment: htn,ckd.on flagyl
[2017-03-21] MEDS: Cholestyramine 4 gm/5.5 gm UD Packet PO SCH (20:16)
--- NOTE | 2017-03-21 21:44 | CP.PCM.PN ---
Subjective - Date & Time of Evaluation Date of Evaluation: 03/21/17 Time of Evaluation: 19:00 - Subjective Subjective: Pt seen and evalauted, c/o shortness of breath, he is vague about it, not coughing urinary retention is there pt is on HD Objective - Vital Signs/Intake and Output Vital Signs (last 24 hours): Temp Pulse Resp BP Pulse Ox 97.7 F 94 H 20 134/73 98 03/21/17 15:39 03/21/17 15:39 03/21/17 15:39 03/21/17 15:58 03/21/17 15:39 Intake and Output: 03/21/17 03/22/17 18:59 06:59 Intake Total 910 Output Total 280 Balance 630 - Medications Medications: Current Medications Acetaminophen (Tylenol 325mg Tab) 650 mg PO Q4H PRN PRN Reason: Fever >100.4 F Last Admin: 03/21/17 03:30 Dose: 650 mg Al Hydrox/Mg Hydrox/Simethicone (Maalox 30 Ml) 30 ml PO Q4H PRN PRN Reason: Heartburn Albuterol/Ipratropium (Duoneb 3 Mg/0.5 Mg (3 Ml) Ud) 3 ml INH RQ6 [facility] Last Admin: 03/21/17 13:43 Dose: Not Given Allopurinol (Zyloprim) 100 mg PO DAILY [facility] Last Admin: 03/21/17 09:06 Dose: 100 mg Bismuth Subsalicylate (Pepto Bismol) 262 mg PO Q4 [facility] Last Admin: 03/21/17 20:16 Dose: 262 mg Cholestyramine Resin (Prevalite) 4 gm PO 2100 [facility] Last Admin: 03/21/17 20:16 Dose: 4 gm Cholestyramine Resin (Prevalite) 4 gm PO 0900 [facility] Enalapril Maleate (Vasotec) 10 mg PO DAILY [facility] Last Admin: 03/21/17 09:05 Dose: Not Given Epoetin Kyle (Procrit) 10,000 unit IV MWF [facility] Stop: 03/27/17 09:01 Last Admin: 03/20/17 12:14 Dose: 10,000 unit Finasteride (Proscar) 5 mg PO DAILY [facility] Last Admin: 03/21/17 09:07 Dose: 5 mg Furosemide (Lasix) 40 mg IVP DAILY [facility] Last Admin: 03/21/17 15:58 Dose: 40 mg Gemfibrozil (Lopid) 600 mg PO HS [facility] Last Admin: 03/21/17 21:09 Dose: 600 mg Heparin Sodium (Porcine) (Heparin) 3,300 units IVP [facility] Stop: 03/27/17 09:01 Last Admin: 03/20/17 12:15 Dose: 3,300 units Heparin Sodium (Porcine) (Heparin) 1,000 units IVP [facility] Stop: 03/27/17 09:01 Hydralazine HCl (Apresoline) 25 mg PO Q8 [facility] Last Admin: 03/21/17 21:08 Dose: 25 mg Metronidazole (Flagyl) 500 mg in 100 mls @ 100 mls/hr IVPB Q8 [facility] Last Admin: 03/21/17 21:09 Dose: 100 mls/hr Piperacillin Sod/Tazobactam Sod (Zosyn 2.25 Gm Iv Premix) 2.25 gm in 50 mls @ 100 mls/hr IVPB Q8H [facility] Last Admin: 03/21/17 18:07 Dose: 100 mls/hr Multivitamins (Hexavitamin) 1 tab PO DAILY [facility] Last Admin: 03/21/17 09:06 Dose: 1 tab Pantoprazole Sodium (Protonix Ec Tab) 40 mg PO DAILY [facility] Last Admin: 03/21/17 09:06 Dose: 40 mg Paricalcitol (Zemplar) 2 mcg IV [facility] Stop: 03/24/17 09:01 Last Admin: 03/20/17 12:13 Dose: 2 mcg Saccharomyces Boulardii (Florastor) 250 mg PO BID [facility] Last Admin: 03/21/17 18:08 Dose: 250 mg Tamsulosin HCl (Flomax) 0.4 mg PO BID [facility] Last Admin: 03/21/17 18:08 Dose: 0.4 mg Vancomycin HCl (Vancocin (Oral Or Rectal Use)) 250 mg PO Q6H [facility] Last Admin: 03/21/17 18:08 Dose: 250 mg - Labs Labs: 03/20/17 07:35 03/20/17 07:35 PT 12.9 SECONDS (9.7-12.2) H 03/15/17 13:24 INR 1.2 03/15/17 13:24 APTT 29 SECONDS (21-34) 03/13/17 08:38 Assessment and Plan (1) Abdominal tenderness, LLQ (left lower quadrant) Status: Acute (2) Acute diarrhea Status: Acute (3) C. difficile diarrhea Status: Acute (4) CKD (chronic kidney disease) Status: Acute (5) Complicated urinary tract infection Status: Acute (6) Shortness of breath Status: Acute (7) Urinary retention Status: Acute
--- NOTE | 2017-03-21 23:04 | PCM.URO ---
Urology Progress Note - Objective Lab Results Last 24 Hours: Laboratory Results - last 24 hr 03/21/17 03/21/17 03/21/17 06:42 11:05 16:35 POC Glucose (mg/dL) 102 117 H 121 H 03/21/17 21:09 POC Glucose (mg/dL) 155 H Intake & Output: Intake & Output 03/21/17 03/21/17 03/22/17 06:59 18:59 06:59 Intake Total 1000 910 750 Output Total 650 280 550 Balance 350 630 200 Intake: Intake, IV Amount 300 150 Right Forearm 300 150 Oral 700 910 600 Output: Urine 650 280 550 Urethral (Garay) 650 280 550 Other: # Voids Urethral (Garay) 1 # Bowel Movements 0 2 1 Vital Signs: Vital Signs - 24 hr 03/20/17 03/21/17 03/21/17 23:58 07:00 09:04 Temperature 98 F 97.8 F Pulse Rate 114 H 93 H 112 H Respiratory 20 20 Rate Blood Pressure 110/55 L 113/58 L 112/65 O2 Sat by Pulse 96 97 Oximetry 03/21/17 03/21/17 03/21/17 09:05 11:10 14:08 Temperature Pulse Rate 111 H 101 H Respiratory Rate Blood Pressure 105/60 129/74 O2 Sat by Pulse 96 Oximetry 03/21/17 03/21/17 15:39 15:58 Temperature 97.7 F Pulse Rate 94 H Respiratory 20 Rate Blood Pressure 134/73 134/73 O2 Sat by Pulse 98 Oximetry
[2017-03-22] MEDS: Albuterol-Ipratrop 3 mg / 0.5 (3 ml) UD INH SCH ×3 (01:57→13:59)
[2017-03-22] MEDS: Piperacill/Tazo 2.25gm in Dex 2.25 GM/50 ML BAG IVPB SCH ×3 (02:27→19:48)
[2017-03-22] MEDS: Bismuth Subsalicylate 262 mg Chew Tab PO SCH ×5 (04:30→19:48)
[2017-03-22] MEDS ORDERED: Sodium Chloride 0.9% 250 ML IV ONE (04:53)
[2017-03-22 05:12] LABS: ABG ALLEN TEST PO; ARTERIAL BLOOD HGB O2 SAT 96.8 % (95.0-98.0); CARBOXYHEMOGLOBIN 2.2 % (0.5-1.5); DRAW SITE RR; METHEMOGLOBIN 1.1 % (0.0-3.0)
[2017-03-22 05:22] LABS: BASO % 0.5 % (0.0-2.0); EOS # 0.1 K/uL (0.0-0.7); EOS % 1.8 % (0.0-4.0); HEMATOCRIT 28.3 % (35.0-51.0); LYMPH % 13.6 % (20.0-40.0); MEAN CELL VOLUME 90.5 fL (80.0-94.0); MEAN CORPUSCULAR HEMOGLOBIN 29.1 pg (27.0-31.0); MEAN CORPUSCULAR HGB CONC 32.1 g/dL (33.0-37.0); MONO # 0.6 K/uL (0.0-0.8); MONO % 7.6 % (0.0-10.0); NRBC % 0.1 % (0.0-2.0); RED CELL DISTRIBUTION WIDTH 19.6 % (11.5-14.5); WHITE BLOOD COUNT 7.6 K/uL (4.8-10.8)
[2017-03-22 05:26] LABS: BLOOD UREA NITROGEN 21 mg/dL (9-20); CALCIUM 7.7 mg/dl (8.6-10.4); CARBON DIOXIDE 25 mmol/L (22-30); CHLORIDE 101 mmol/L (98-107); GFR AFRICAN-AMERICAN 17; GLUCOSE,RANDOM 122 mg/dL (75-110); POTASSIUM 4.5 mmol/L (3.6-5.2); SODIUM 133 mmol/L (132-148)
--- NOTE | 2017-03-22 05:49 | RAD ---
EXAM: XR Chest, 1 View CLINICAL HISTORY: 76 years old, male; Pain; Chest pain; Patient HX: 12 it send the images TECHNIQUE: Frontal view of the chest. COMPARISON: DX - CHEST PORTABLE 2017-03-20 09:58 FINDINGS: Lungs: Mild underinflation. Minimal patchy opacities lung bases. Pleural space: Cannot exclude small pleural effusions. No pneumothorax. Heart: No cardiomegaly. Mediastinum: Atherosclerosis of thoracic aorta. Bones/joints: No acute fracture. Tubes, lines and devices: Central venous catheter with tip projected over RIGHT atrium. IMPRESSION: 1. Bibasilar atelectasis and/or pneumonia. 2. Incidental/non-acute findings are described above.
[2017-03-22] MEDS: metroNIDAZOLE IV 500 mg/100 ml 500 MG/100 ML BAG IVPB SCH ×3 (06:15→21:04)
[2017-03-22] MEDS: Vancomycin 125 MG/5 ML SOLN (ORAL/RECTAL) PO SCH ×4 (06:18→19:47)
[2017-03-22] MEDS: Cholestyramine 4 gm/5.5 gm UD Packet PO SCH ×2 (08:43→20:21)
--- NOTE | 2017-03-22 09:50 | PN ---
DATE: 03/21/2017 UROLOGY PROGRESS NOTE SUBJECTIVE: Shaw Cho, the patient is admitted under the care of Dr. Cole and multiple issues. The patient had a Garay catheter inserted earlier today. See the previous consult note from Dr. Eli Montoya. The patient is currently with an indwelling Garay catheter, draining clear yellow urine and initially apparently about 400 mL drained. PAST MEDICAL AND SURGICAL: Otherwise no other changes. PHYSICAL EXAMINATION: No other changes. DIAGNOSES: Voiding dysfunction, urinary retention. PLAN: As follows, maintain Garay for now. We will discuss further plan with Dr. Cole. Sohail Montoya MD
--- NOTE | 2017-03-22 10:13 | PN ---
DATE: FOLLOWUP RENAL CONSULTATION LOCATION: The patient is located in room 557, bed A. REQUESTED BY: Yeison Cole MD. REASON FOR FOLLOWUP: End-stage renal disease, continuation of hemodialysis. SUBJECTIVE: Mr. Hyde is a 76 years old elderly obese male with a history of longstanding hypertension; BPH; recurrent UTI; anemia; end-stage renal disease, on hemodialysis 3 times a week, Monday, , Monday; who was admitted with severe diarrhea for 2 to 3 weeks prior to the admission and the patient was found to have elevated WBC count and CT scan consistent colitis and stool for C. diff toxin is positive and the patient is being treated for C. diff colitis with IV Flagyl and p.o. vancomycin. The patient is feeling better, not in any acute distress. No diarrhea today. No chest pain. No palpitation. No fever. No cough. Complains of poor appetite. PHYSICAL EXAMINATION: GENERAL: Mr. Hyde is a 76 years old male, moderately built and moderately nourished, not in any distress. VITAL SIGNS: Blood pressure 105/60, pulse 111, respirations 20, temperature 97.7, saturation 96%. Height 5 feet 8 inches and weight is 192 pounds. HEENT: Pupils are normal and reactive to light and accommodation. Conjunctivae pink. Sclerae anicteric. Tongue is moist. Trachea is midline. LUNGS: Symmetric on both sides. Bilateral breath sounds present. Clear on auscultation. CARDIOVASCULAR SYSTEM: Union at the fifth intercostal space, midclavicular line. S1 and S2 audible. No murmur. No gallop. ABDOMEN: Normal in appearance, soft, tympanic. No guarding. No rigidity. No hepatosplenomegaly. No abdominal bruit. CENTRAL NERVOUS SYSTEM: The patient is alert, awake, oriented x3. Nonfocal neuro examination. Cranial nerves II through XII grossly intact. Sensory and motor system is within normal limits. EXTREMITIES: No cyanosis. No clubbing. No edema. LABORATORY DATA: No new labs are available. His Accu-Cheks as of 03/21/2017, 102 and 117. MEDICATIONS: His current medications include as follows, hydralazine 25 mg p.o. q. 8 hours, DuoNeb inhaler and Flagyl 500 mg q. 8 hours, Flomax 0.4 mg p.o. b.i.d., Florastor 250 mg p.o. b.i.d. and heparin during dialysis 3300 units in the Perm-A-Cath in each port after dialysis and heparin 1000 p.r.n. for clotting during dialysis and also multivitamin 1 tablet daily, Lasix 40 mg daily and Maalox, Pepto-Bismol and cholestyramine 4 g p.o. and Proscar at 5 mg daily, Procrit 10,000 units 3 times a week, Protonix, Tylenol, vancomycin 10 mg p.o. daily and Vasotec 10 mg p.o. daily and Zemplar, Zosyn and allopurinol. ASSESSMENT AND PLAN: In summary, Mr. Hyde is a 76 years old obese elderly male with hypertension; benign prostatic hypertrophy; recurrent urinary tract infection; osteoarthritis; anemia; end-stage renal disease, on hemodialysis; who was admitted with diarrhea for 2 to 3 weeks and found to have stool Clostridium difficile toxin positive for Clostridium difficile toxin. 1. End-stage renal disease. Continue hemodialysis 3 times a week, Monday, Monday, Monday. 2. Anemia secondary to renal failure. 3. Diarrhea secondary to Clostridium difficile colitis. 4. Congestive heart failure. 5. Rule out pneumonia. Continue antibiotics as per Infectious Disease recommendations and the primary team. Vancomycin, Flagyl and Zosyn. We will follow up with you. Thank you for allowing me to participate in your patient's care. We will try to ultrafiltrate as much as the patient can tolerate. Emir Kirk MD
[2017-03-22] MEDS: Saccharomyces Boulardi 250 mg Cap PO SCH ×3 (10:37→19:47)
[2017-03-22] MEDS: Pantoprazole 40 mg EC Tab PO SCH (10:37)
[2017-03-22] MEDS: Multiple Vitamins Tab PO SCH (10:37)
--- NOTE | 2017-03-22 12:43 | CP.PCM.PN ---
Subjective - Date & Time of Evaluation Date of Evaluation: 03/22/17 Time of Evaluation: 12:43 - Subjective Subjective: pt is seen and examined, follow up consult is dictated #[id number] for hd today Objective - Vital Signs/Intake and Output Vital Signs (last 24 hours): Temp Pulse Resp BP Pulse Ox 98.1 F 112 H 20 118/72 98 03/22/17 07:00 03/22/17 12:02 03/22/17 07:00 03/22/17 10:38 03/22/17 12:02 Intake and Output: 03/22/17 03/22/17 06:59 18:59 Intake Total 750 Output Total 550 Balance 200 - Medications Medications: Current Medications Acetaminophen (Tylenol 325mg Tab) 650 mg PO Q4H PRN PRN Reason: Fever >100.4 F Last Admin: 03/22/17 00:46 Dose: 650 mg Al Hydrox/Mg Hydrox/Simethicone (Maalox 30 Ml) 30 ml PO Q4H PRN PRN Reason: Heartburn Albuterol/Ipratropium (Duoneb 3 Mg/0.5 Mg (3 Ml) Ud) 3 ml INH RQ6 [facility] Last Admin: 03/22/17 08:05 Dose: 3 ml Allopurinol (Zyloprim) 100 mg PO DAILY [facility] Last Admin: 03/22/17 10:37 Dose: 100 mg Bismuth Subsalicylate (Pepto Bismol) 262 mg PO Q4 [facility] Last Admin: 03/22/17 11:35 Dose: Not Given Cholestyramine Resin (Prevalite) 4 gm PO 2100 [facility] Last Admin: 03/21/17 20:16 Dose: 4 gm Cholestyramine Resin (Prevalite) 4 gm PO 0900 [facility] Last Admin: 03/22/17 08:43 Dose: 4 gm Enalapril Maleate (Vasotec) 10 mg PO DAILY [facility] Last Admin: 03/22/17 10:38 Dose: Not Given Epoetin Kyle (Procrit) 10,000 unit IV MWF [facility] Stop: 03/27/17 09:01 Last Admin: 03/20/17 12:14 Dose: 10,000 unit Finasteride (Proscar) 5 mg PO DAILY [facility] Last Admin: 03/22/17 10:37 Dose: 5 mg Gemfibrozil (Lopid) 600 mg PO HS [facility] Last Admin: 03/21/17 21:09 Dose: 600 mg Heparin Sodium (Porcine) (Heparin) 3,300 units IVP [facility] Stop: 03/27/17 09:01 Last Admin: 03/20/17 12:15 Dose: 3,300 units Heparin Sodium (Porcine) (Heparin) 1,000 units IVP [facility] Stop: 03/27/17 09:01 Hydralazine HCl (Apresoline) 25 mg PO Q8 [facility] Last Admin: 03/22/17 06:16 Dose: Not Given Metronidazole (Flagyl) 500 mg in 100 mls @ 100 mls/hr IVPB Q8 [facility] Last Admin: 03/22/17 06:15 Dose: 100 mls/hr Piperacillin Sod/Tazobactam Sod (Zosyn 2.25 Gm Iv Premix) 2.25 gm in 50 mls @ 100 mls/hr IVPB Q8H [facility] Last Admin: 03/22/17 10:37 Dose: 100 mls/hr Multivitamins (Hexavitamin) 1 tab PO DAILY [facility] Last Admin: 03/22/17 10:37 Dose: 1 tab Pantoprazole Sodium (Protonix Ec Tab) 40 mg PO DAILY [facility] Last Admin: 03/22/17 10:37 Dose: 40 mg Paricalcitol (Zemplar) 2 mcg IV [facility] Stop: 03/24/17 09:01 Last Admin: 03/20/17 12:13 Dose: 2 mcg Saccharomyces Boulardii (Florastor) 250 mg PO BID [facility] Last Admin: 03/22/17 10:37 Dose: 250 mg Tamsulosin HCl (Flomax) 0.4 mg PO BID [facility] Last Admin: 03/22/17 10:37 Dose: 0.4 mg Vancomycin HCl (Vancocin (Oral Or Rectal Use)) 250 mg PO Q6H [facility] Last Admin: 03/22/17 11:33 Dose: 250 mg - Labs Labs: 03/22/17 05:14 03/22/17 05:14 PT 12.9 SECONDS (9.7-12.2) H 03/15/17 13:24 INR 1.2 03/15/17 13:24 APTT 29 SECONDS (21-34) 03/13/17 08:38
[2017-03-22 14:58] LABS: TROPONIN I 0.037 ng/mL (0.00-0.120)
[2017-03-22] MEDS: Paricalcitol 2 mcg/ml Inj IV SCH (16:09)
[2017-03-22] MEDS: Epoetin Alfa 10,000 unit/ml Dialysis IV SCH (16:09)
--- NOTE | 2017-03-22 16:53 | CP.PCM.PN ---
Subjective - Date & Time of Evaluation Date of Evaluation: 03/22/17 Time of Evaluation: 16:52 - Subjective Subjective: hungry.getting dyalysis. Objective - Vital Signs/Intake and Output Vital Signs (last 24 hours): Temp Pulse Resp BP Pulse Ox 98.1 F 103 H 20 118/72 98 03/22/17 07:00 03/22/17 15:20 03/22/17 07:00 03/22/17 10:38 03/22/17 12:02 Intake and Output: 03/22/17 03/22/17 06:59 18:59 Intake Total 750 Output Total 550 400 Balance 200 -400 - Medications Medications: Current Medications Acetaminophen (Tylenol 325mg Tab) 650 mg PO Q4H PRN PRN Reason: Fever >100.4 F Last Admin: 03/22/17 00:46 Dose: 650 mg Al Hydrox/Mg Hydrox/Simethicone (Maalox 30 Ml) 30 ml PO Q4H PRN PRN Reason: Heartburn Albuterol/Ipratropium (Duoneb 3 Mg/0.5 Mg (3 Ml) Ud) 3 ml INH RQ6 [facility] Last Admin: 03/22/17 13:59 Dose: 3 ml Allopurinol (Zyloprim) 100 mg PO DAILY [facility] Last Admin: 03/22/17 10:37 Dose: 100 mg Bismuth Subsalicylate (Pepto Bismol) 262 mg PO Q4 [facility] Last Admin: 03/22/17 11:35 Dose: Not Given Cholestyramine Resin (Prevalite) 4 gm PO 2100 [facility] Last Admin: 03/21/17 20:16 Dose: 4 gm Cholestyramine Resin (Prevalite) 4 gm PO 0900 [facility] Last Admin: 03/22/17 08:43 Dose: 4 gm Enalapril Maleate (Vasotec) 10 mg PO DAILY [facility] Last Admin: 03/22/17 10:38 Dose: Not Given Epoetin Kyle (Procrit) 10,000 unit IV MWF [facility] Stop: 03/27/17 09:01 Last Admin: 03/22/17 16:09 Dose: 10,000 unit Finasteride (Proscar) 5 mg PO DAILY [facility] Last Admin: 03/22/17 10:37 Dose: 5 mg Gemfibrozil (Lopid) 600 mg PO HS [facility] Last Admin: 03/21/17 21:09 Dose: 600 mg Heparin Sodium (Porcine) (Heparin) 3,300 units IVP [facility] Stop: 03/27/17 09:01 Last Admin: 03/22/17 16:11 Dose: 3,300 units Heparin Sodium (Porcine) (Heparin) 1,000 units IVP [facility] Stop: 03/27/17 09:01 Last Admin: 03/22/17 15:41 Dose: 1,000 units Hydralazine HCl (Apresoline) 25 mg PO Q8 [facility] Last Admin: 03/22/17 13:39 Dose: Not Given Metronidazole (Flagyl) 500 mg in 100 mls @ 100 mls/hr IVPB Q8 [facility] Last Admin: 03/22/17 13:39 Dose: 100 mls/hr Piperacillin Sod/Tazobactam Sod (Zosyn 2.25 Gm Iv Premix) 2.25 gm in 50 mls @ 100 mls/hr IVPB Q8H [facility] Last Admin: 03/22/17 10:37 Dose: 100 mls/hr Multivitamins (Hexavitamin) 1 tab PO DAILY [facility] Last Admin: 03/22/17 10:37 Dose: 1 tab Pantoprazole Sodium (Protonix Ec Tab) 40 mg PO DAILY [facility] Last Admin: 03/22/17 10:37 Dose: 40 mg Paricalcitol (Zemplar) 2 mcg IV [facility] Stop: 03/24/17 09:01 Last Admin: 03/22/17 16:09 Dose: 2 mcg Saccharomyces Boulardii (Florastor) 250 mg PO BID [facility] Last Admin: 03/22/17 10:37 Dose: 250 mg Tamsulosin HCl (Flomax) 0.4 mg PO BID [facility] Last Admin: 03/22/17 10:37 Dose: 0.4 mg Vancomycin HCl (Vancocin (Oral Or Rectal Use)) 250 mg PO Q6H [facility] Last Admin: 03/22/17 11:33 Dose: 250 mg - Labs Labs: 03/22/17 05:14 03/22/17 05:14 PT 12.9 SECONDS (9.7-12.2) H 03/15/17 13:24 INR 1.2 03/15/17 13:24 APTT 29 SECONDS (21-34) 03/13/17 08:38 - Constitutional Appears: Chronically Ill - Neck Exam Neck Exam: Normal Inspection - Respiratory Exam Respiratory Exam: Clear to Ausculation Bilateral - Cardiovascular Exam Cardiovascular Exam: REGULAR RHYTHM - GI/Abdominal Exam GI & Abdominal Exam: Soft - Extremities Exam Extremities Exam: absent: Pedal Edema - Neurological Exam Neurological Exam: Alert, Oriented x3 Assessment and Plan - Assessment and Plan (Free Text) Assessment: htn.chest pains are non anginal.ekg is ok.,troponin is neg
--- NOTE | 2017-03-22 23:11 | CP.PCM.PN ---
Subjective - Date & Time of Evaluation Date of Evaluation: 03/22/17 Time of Evaluation: 22:00 - Subjective Subjective: Pt seen and evalauted, feeling better on HD Objective - Vital Signs/Intake and Output Vital Signs (last 24 hours): Temp Pulse Resp BP Pulse Ox 97.6 F 118 H 18 148/89 100 03/22/17 19:20 03/22/17 20:39 03/22/17 19:20 03/22/17 19:20 03/22/17 19:20 Intake and Output: 03/22/17 03/23/17 18:59 06:59 Intake Total 650 Output Total 400 Balance -400 650 - Medications Medications: Current Medications Acetaminophen (Tylenol 325mg Tab) 650 mg PO Q4H PRN PRN Reason: Fever >100.4 F Last Admin: 03/22/17 00:46 Dose: 650 mg Al Hydrox/Mg Hydrox/Simethicone (Maalox 30 Ml) 30 ml PO Q4H PRN PRN Reason: Heartburn Albuterol/Ipratropium (Duoneb 3 Mg/0.5 Mg (3 Ml) Ud) 3 ml INH RQ6 [facility] Last Admin: 03/22/17 13:59 Dose: 3 ml Allopurinol (Zyloprim) 100 mg PO DAILY [facility] Last Admin: 03/22/17 10:37 Dose: 100 mg Bismuth Subsalicylate (Pepto Bismol) 262 mg PO Q4 [facility] Last Admin: 03/22/17 19:48 Dose: 262 mg Cholestyramine Resin (Prevalite) 4 gm PO 2100 [facility] Last Admin: 03/22/17 20:21 Dose: 4 gm Cholestyramine Resin (Prevalite) 4 gm PO 0900 [facility] Last Admin: 03/22/17 08:43 Dose: 4 gm Enalapril Maleate (Vasotec) 10 mg PO DAILY [facility] Last Admin: 03/22/17 10:38 Dose: Not Given Epoetin Kyle (Procrit) 10,000 unit IV MWF [facility] Stop: 03/27/17 09:01 Last Admin: 03/22/17 16:09 Dose: 10,000 unit Finasteride (Proscar) 5 mg PO DAILY [facility] Last Admin: 03/22/17 10:37 Dose: 5 mg Gemfibrozil (Lopid) 600 mg PO HS [facility] Last Admin: 03/22/17 21:04 Dose: 600 mg Heparin Sodium (Porcine) (Heparin) 3,300 units IVP [facility] Stop: 03/27/17 09:01 Last Admin: 03/22/17 16:11 Dose: 3,300 units Heparin Sodium (Porcine) (Heparin) 1,000 units IVP [facility] Stop: 03/27/17 09:01 Last Admin: 03/22/17 15:41 Dose: 1,000 units Hydralazine HCl (Apresoline) 25 mg PO Q8 [facility] Last Admin: 03/22/17 21:06 Dose: 25 mg Metronidazole (Flagyl) 500 mg in 100 mls @ 100 mls/hr IVPB Q8 [facility] Last Admin: 03/22/17 21:04 Dose: 100 mls/hr Piperacillin Sod/Tazobactam Sod (Zosyn 2.25 Gm Iv Premix) 2.25 gm in 50 mls @ 100 mls/hr IVPB Q8H [facility] Last Admin: 03/22/17 19:48 Dose: 100 mls/hr Multivitamins (Hexavitamin) 1 tab PO DAILY [facility] Last Admin: 03/22/17 10:37 Dose: 1 tab Pantoprazole Sodium (Protonix Ec Tab) 40 mg PO DAILY [facility] Last Admin: 03/22/17 10:37 Dose: 40 mg Paricalcitol (Zemplar) 2 mcg IV [facility] Stop: 03/24/17 09:01 Last Admin: 03/22/17 16:09 Dose: 2 mcg Saccharomyces Boulardii (Florastor) 250 mg PO BID [facility] Last Admin: 03/22/17 19:47 Dose: 250 mg Tamsulosin HCl (Flomax) 0.4 mg PO BID [facility] Last Admin: 03/22/17 19:47 Dose: 0.4 mg Vancomycin HCl (Vancocin (Oral Or Rectal Use)) 250 mg PO Q6H [facility] Last Admin: 03/22/17 19:47 Dose: 250 mg - Labs Labs: 03/22/17 05:14 03/22/17 05:14 PT 12.9 SECONDS (9.7-12.2) H 03/15/17 13:24 INR 1.2 03/15/17 13:24 APTT 29 SECONDS (21-34) 11/27/17 08:38 - Constitutional Appears: No Acute Distress, Chronically Ill - Head Exam Head Exam: ATRAUMATIC, NORMAL INSPECTION, NORMOCEPHALIC - Eye Exam Eye Exam: EOMI, Normal appearance, PERRL Pupil Exam: NORMAL ACCOMODATION, PERRL - Respiratory Exam Respiratory Exam: Clear to Ausculation Bilateral, NORMAL BREATHING PATTERN - Cardiovascular Exam Cardiovascular Exam: REGULAR RHYTHM, +S1, +S2. absent: Murmur - GI/Abdominal Exam GI & Abdominal Exam: Soft, Normal Bowel Sounds. absent: Tenderness Assessment and Plan (1) Abdominal tenderness, LLQ (left lower quadrant) Status: Acute (2) Acute diarrhea Status: Acute (3) C. difficile diarrhea Status: Acute (4) CKD (chronic kidney disease) Status: Acute (5) Complicated urinary tract infection Status: Acute (6) Shortness of breath Status: Acute (7) Urinary retention Status: Acute
--- NOTE | 2017-03-22 23:19 | PCM.URO ---
Urology Progress Note - General General: Tolerating Diet - Subjective Abdominal Pain: No Flank Pain: No Nausea: No Vomiting: No Voiding Well: No Hematuria: No Dsypnea: No Fever & Chills: No Other: Weak. In bed. Had BM yesterday - Objective Lab Studies: Reviewed (azotemia Urine culture negative) Lab Results Last 24 Hours: Laboratory Results - last 24 hr 03/22/17 03/22/17 03/22/17 05:09 05:14 05:14 WBC 7.6 RBC 3.13 L Hgb 9.1 L D Hct 28.3 L MCV 90.5 MCH 29.1 MCHC 32.1 L RDW 19.6 H Plt Count 247 MPV 7.0 L Neut % (Auto) 76.5 H Lymph % (Auto) 13.6 L [place] % (Auto) 7.6 Eos % (Auto) 1.8 Baso % (Auto) 0.5 Neut # 5.8 Lymph # 1.0 [place] # 0.6 Eos # 0.1 Baso # 0.0 D-Dimer, Quantitative Puncture Site Rr pCO2 30 L pO2 131 H HCO3 22.9 ABG pH 7.45 ABG Total CO2 21.8 L ABG O2 Saturation 100.0 H ABG Base Excess -2.6 L ABG Hemoglobin 7.7 L ABG Carboxyhemoglobin 2.2 H POC ABG HHb (Measured) 0.0 ABG Methemoglobin 1.1 Dejan Test Po A-a O2 Difference 31.0 Respiratory Index 0.2 Hgb O2 Saturation 96.8 Liter Flow 2.0 FiO2 28.0 Sodium 133 Potassium 4.5 Chloride 101 Carbon Dioxide 25 Anion Gap 11 BUN 21 H Creatinine 4.1 H Est GFR ( Amer) 17 Est GFR (Non-Af Amer) 14 POC Glucose (mg/dL) Random Glucose 122 H Calcium 7.7 L Total Creatine Kinase < 20 L CK-MB (Mass) 0.77 Troponin I 0.0410 03/22/17 03/22/17 03/22/17 06:46 11:20 14:11 WBC RBC Hgb Hct MCV MCH MCHC RDW Plt Count MPV Neut % (Auto) Lymph % (Auto) [place] % (Auto) Eos % (Auto) Baso % (Auto) Neut # Lymph # [place] # Eos # Baso # D-Dimer, Quantitative Puncture Site pCO2 pO2 HCO3 ABG pH ABG Total CO2 ABG O2 Saturation ABG Base Excess ABG Hemoglobin ABG Carboxyhemoglobin POC ABG HHb (Measured) ABG Methemoglobin Dejan Test A-a O2 Difference Respiratory Index Hgb O2 Saturation Liter Flow FiO2 Sodium Potassium Chloride Carbon Dioxide Anion Gap BUN Creatinine Est GFR ( Amer) Est GFR (Non-Af Amer) POC Glucose (mg/dL) 123 H 148 H Random Glucose Calcium Total Creatine Kinase 29 L CK-MB (Mass) 0.92 Troponin I 0.0370 03/22/17 03/22/17 03/22/17 15:45 16:36 17:56 WBC RBC Hgb Hct MCV MCH MCHC RDW Plt Count MPV Neut % (Auto) Lymph % (Auto) [place] % (Auto) Eos % (Auto) Baso % (Auto) Neut # Lymph # [place] # Eos # Baso # D-Dimer, Quantitative 749 H Puncture Site pCO2 pO2 HCO3 ABG pH ABG Total CO2 ABG O2 Saturation ABG Base Excess ABG Hemoglobin ABG Carboxyhemoglobin POC ABG HHb (Measured) ABG Methemoglobin Dejan Test A-a O2 Difference Respiratory Index Hgb O2 Saturation Liter Flow FiO2 Sodium Potassium Chloride Carbon Dioxide Anion Gap BUN Creatinine Est GFR ( Amer) Est GFR (Non-Af Amer) POC Glucose (mg/dL) 141 H Random Glucose Calcium Total Creatine Kinase < 20 L CK-MB (Mass) 0.83 Troponin I 0.0370 03/22/17 21:08 WBC RBC Hgb Hct MCV MCH MCHC RDW Plt Count MPV Neut % (Auto) Lymph % (Auto) [place] % (Auto) Eos % (Auto) Baso % (Auto) Neut # Lymph # [place] # Eos # Baso # D-Dimer, Quantitative Puncture Site pCO2 pO2 HCO3 ABG pH ABG Total CO2 ABG O2 Saturation ABG Base Excess ABG Hemoglobin ABG Carboxyhemoglobin POC ABG HHb (Measured) ABG Methemoglobin Dejan Test A-a O2 Difference Respiratory Index Hgb O2 Saturation Liter Flow FiO2 Sodium Potassium Chloride Carbon Dioxide Anion Gap BUN Creatinine Est GFR ( Amer) Est GFR (Non-Af Amer) POC Glucose (mg/dL) 154 H Random Glucose Calcium Total Creatine Kinase CK-MB (Mass) Troponin I Intake & Output: Intake & Output 03/22/17 03/22/17 03/23/17 06:59 18:59 06:59 Intake Total 750 650 Output Total 550 400 Balance 200 -400 650 Intake: Intake, IV Amount 150 150 Right Forearm 150 150 Oral 600 500 Output: Urine 550 400 Urethral (Garay) 550 400 Other: # Bowel Movements 1 1 Vital Signs: Vital Signs - 24 hr 03/21/17 03/22/17 03/22/17 23:20 04:30 05:20 Temperature 97.3 F L 97.8 F Pulse Rate 110 H 134 H Pulse Rate [ Right Brachial] Respiratory 20 20 Rate Blood Pressure 134/68 95/60 L 103/68 Blood Pressure [Left Arm] O2 Sat by Pulse 97 97 Oximetry 03/22/17 03/22/17 03/22/17 06:23 07:00 08:00 Temperature 98.1 F Pulse Rate 106 H 95 H 89 Pulse Rate [ Right Brachial] Respiratory 20 Rate Blood Pressure 116/74 118/72 Blood Pressure [Left Arm] O2 Sat by Pulse 97 Oximetry 03/22/17 03/22/17 03/22/17 10:38 12:02 15:20 Temperature Pulse Rate 112 H 103 H Pulse Rate [ Right Brachial] Respiratory Rate Blood Pressure 118/72 Blood Pressure [Left Arm] O2 Sat by Pulse 98 Oximetry 03/22/17 03/22/17 03/22/17 15:45 15:50 16:05 Temperature 97.6 F 97.6 F Pulse Rate 99 H Pulse Rate [ 99 H Right Brachial] Respiratory 18 18 Rate Blood Pressure 146/84 Blood Pressure 137/73 125/75 [Left Arm] O2 Sat by Pulse 100 Oximetry 03/22/17 03/22/17 03/22/17 16:20 16:35 16:50 Temperature Pulse Rate Pulse Rate [ Right Brachial] Respiratory Rate Blood Pressure Blood Pressure 133/76 130/81 139/60 [Left Arm] O2 Sat by Pulse Oximetry 03/22/17 03/22/17 03/22/17 17:20 17:50 18:20 Temperature Pulse Rate Pulse Rate [ Right Brachial] Respiratory Rate Blood Pressure Blood Pressure 129/71 122/69 135/72 [Left Arm] O2 Sat by Pulse Oximetry 03/22/17 03/22/17 03/22/17 18:50 19:20 20:07 Temperature 97.6 F Pulse Rate 118 H Pulse Rate [ 101 H Right Brachial] Respiratory 18 Rate Blood Pressure Blood Pressure 146/90 148/89 [Left Arm] O2 Sat by Pulse 100 Oximetry 03/22/17 20:39 Temperature Pulse Rate 118 H Pulse Rate [ Right Brachial] Respiratory Rate Blood Pressure Blood Pressure [Left Arm] O2 Sat by Pulse Oximetry - Physical Exam Abdominal Exam: Soft, Non-Tender, Non-Distended Back: No CVA Tenderness Genitalia: Without Inflammation Urinary Catheter Draining Well: Yes Urine Color: Clear, Yellow - Plan Catheter Care: Yes Intake & Output: Yes Additional Information: Imp: voiding dysfunction. Incomplete bladder emptying. Hx of BPH. Stable with catheter in place. Rec/p: Hume of voiding after pt is OOB and has increased his level of activity. continue tamsulosin, finasteride. Check PSA - Date & Time of Note Date: 03/22/17 Time: 12:15
[2017-03-23] MEDS: Vancomycin 125 MG/5 ML SOLN (ORAL/RECTAL) PO SCH ×4 (01:35→19:50)
[2017-03-23] MEDS: Bismuth Subsalicylate 262 mg Chew Tab PO SCH ×6 (01:35→21:17)
[2017-03-23] MEDS: Albuterol-Ipratrop 3 mg / 0.5 (3 ml) UD INH SCH ×4 (02:21→21:09)
--- NOTE | 2017-03-23 02:49 | PN ---
FOLLOWUP RENAL CONSULTATION LOCATION: The patient is located in room 557, bed A. REQUESTED BY: Yeison Cole MD REASON FOR FOLLOWUP: Endstage renal disease, for continuation of hemodialysis. HISTORY OF PRESENT ILLNESS: Mr. Cho is a 76-year-old elderly male, with a past medical history significant for longstanding hypertension, BPH, osteoarthritis, recurrent UTIs, anemia, endstage renal disease, who was recently admitted with chief complaints of diarrhea for 2 to 3 weeks and elevated WBC count . Subsequently, the patient was found to have stool C. diff toxin positive and the patient is being treated for the C. diff colitis with IV Flagyl and p.o. vancomycin. The patient is feeling better, not in distress. Denies any chest pain or palpitations. Denies any fever or cough. Denies any diarrhea today. Complains of poor appetite. PHYSICAL EXAMINATION: VITAL SIGNS: As follows, blood pressure this morning 138/84, pulse 112, respirations about 18, saturations 98%, and temperature 98.1. GENERAL: Mr. Cho is a 76-year-old elderly male, moderately built, moderately nourished, not in distress. HEENT: Pupils are normal and reactive to light and accommodation. Conjunctivae are pink. Sclerae are anicteric. Tongue is moist. Trachea is midline. LUNGS: Symmetric on both sides. Bilateral breath sounds present. Clear on auscultation. CARDIOVASCULAR: [place] at the fifth intercostal space in the midclavicular line. S1 and S2 audible. No murmur. No gallop. ABDOMEN: Normal in appearance, soft, tympanic. No guarding. No rigidity. No hepatosplenomegaly. CENTRAL NERVOUS SYSTEM: The patient is alert, awake, and oriented x2-3. Sensory and motor system is grossly within normal limits. EXTREMITIES: No cyanosis, no clubbing, no edema. CURRENT MEDICATIONS: Include as follows, Hydralazine 25 mg p.o. q. 8 hours, DuoNeb inhaler, Flagyl 500 mg IV q. 8 hours, Flomax 0.4 mg p.o. b.i.d., Florastor 250 mg p.o. b.i.d.; heparin 3300 units in each port of PermCath 3 times a week, Monday, Monday, and Monday, and heparin 1000 units during dialysis - Monday, Monday, and Monday; multivitamin 1 tablet daily, Lopid 600 mg p.o. at bedtime, Maalox, Pepto-Bismol, Prevalite 4 g p.o. morning and evening, Procrit 10,000 units 3 times a week, Proscar 5 mg daily, Protonix 40 mg p.o. daily, vancomycin 250 mg p.o. q. 6 hours, enalapril 10 mg daily, Zemplar 2 mcg 3 times a week, Zosyn 2.25 g IV q. 8 hours, and allopurinol 100 mg p.o. daily. LABORATORY DATA: Includes follows, as of today, WBC 7.6, hemoglobin 9.1, hematocrit is 28.3, and platelets 247. ABG, pH 7.45, pCO2 of 30, pO2 of 131, bicarb is 22.9, saturation 100%, FiO2 of 28% on 2 L nasal cannula. Sodium 133, potassium 4.5, chloride 101, CO2 of 25, BUN 21, creatinine 4.1, glucose 122, calcium 7.7, CPK CK-MB 0.77, 0.92, and 0.83, and troponin 0.04, 0.03, and 0.037. As of 03/20/2017, stool culture is negative for salmonella, shigella, and campylobacter. Chest x-ray as of 03/22/2017, bibasilar atelectasis and pneumonia. ASSESSMENT: In summary, Mr. Cho is a 76-year-old elderly obese male with a history of hypertension, BPH, osteoarthritis, recurrent urinary tract infection, anemia, end-stage renal disease, on hemodialysis 3 times a week; last three months ago, was admitted with chief complaints of diarrhea and elevated WBC count, stool Clostridium difficile toxin was positive on admission. 1. End-stage renal disease. Continue hemodialysis 3 times a week, Monday, Monday, and Monday. The patient is scheduled for hemodialysis this afternoon. 2. Clostridium difficile colitis, improving. Continue Flagyl and vancomycin as per Gastrointestinal recommendation. 3. Rule out congestive heart failure versus pneumonia. Continue Zosyn as per Dr. Cole. 4. Hypertension. Blood pressure is stable. Continue his hydralazine and enalapril. We will follow with you. Thank you for allowing me to participate in your patient's care. Continue bedside physical therapy. Case discussed with Dr. Riog Comer in the rounds. Emir Kirk MD
[2017-03-23] MEDS: Piperacill/Tazo 2.25gm in Dex 2.25 GM/50 ML BAG IVPB SCH ×3 (03:51→19:50)
[2017-03-23] MEDS: metroNIDAZOLE IV 500 mg/100 ml 500 MG/100 ML BAG IVPB SCH ×3 (05:13→21:57)
[2017-03-23] MEDS: Cholestyramine 4 gm/5.5 gm UD Packet PO SCH ×2 (09:07→21:57)
[2017-03-23] MEDS: Saccharomyces Boulardi 250 mg Cap PO SCH ×2 (10:31→21:17)
[2017-03-23] MEDS: Multiple Vitamins Tab PO SCH (10:31)
[2017-03-23] MEDS: Pantoprazole 40 mg EC Tab PO SCH (10:33)
--- NOTE | 2017-03-23 12:23 | PCM.URO ---
Urology Progress Note - Objective Lab Studies: Reviewed (gu dx: retention gu plans:no change for now will follow along, full note to be dictated) Lab Results Last 24 Hours: Laboratory Results - last 24 hr 03/22/17 03/22/17 03/22/17 14:11 15:45 16:36 D-Dimer, Quantitative 749 H POC Glucose (mg/dL) 141 H Total Creatine Kinase 29 L CK-MB (Mass) 0.92 Troponin I 0.0370 03/22/17 03/22/17 03/23/17 17:56 21:08 06:08 D-Dimer, Quantitative POC Glucose (mg/dL) 154 H 116 H Total Creatine Kinase < 20 L CK-MB (Mass) 0.83 Troponin I 0.0370 03/23/17 11:20 D-Dimer, Quantitative POC Glucose (mg/dL) 102 Total Creatine Kinase CK-MB (Mass) Troponin I Intake & Output: Intake & Output 03/22/17 03/23/17 03/23/17 18:59 06:59 18:59 Intake Total 1100 Output Total 400 750 Balance -400 350 Intake: Intake, IV Amount 300 Right Forearm 300 Oral 800 Output: Urine 400 750 Urethral (Garay) 400 750 Other: # Bowel Movements 0 Vital Signs: Vital Signs - 24 hr 03/22/17 03/22/17 03/22/17 15:20 15:45 15:50 Temperature 97.6 F 97.6 F Pulse Rate 103 H 99 H Pulse Rate [ 99 H Right Brachial] Respiratory 18 18 Rate Blood Pressure 146/84 Blood Pressure 137/73 [Left Arm] O2 Sat by Pulse 100 Oximetry 03/22/17 03/22/17 03/22/17 16:05 16:20 16:35 Temperature Pulse Rate Pulse Rate [ Right Brachial] Respiratory Rate Blood Pressure Blood Pressure 125/75 133/76 130/81 [Left Arm] O2 Sat by Pulse Oximetry 03/22/17 03/22/17 03/22/17 16:50 17:20 17:50 Temperature Pulse Rate Pulse Rate [ Right Brachial] Respiratory Rate Blood Pressure Blood Pressure 139/60 129/71 122/69 [Left Arm] O2 Sat by Pulse Oximetry 03/22/17 03/22/17 03/22/17 18:20 18:50 19:20 Temperature 97.6 F Pulse Rate Pulse Rate [ 101 H Right Brachial] Respiratory 18 Rate Blood Pressure Blood Pressure 135/72 146/90 148/89 [Left Arm] O2 Sat by Pulse 100 Oximetry 03/22/17 03/22/17 03/22/17 20:07 20:39 23:25 Temperature 98.5 F Pulse Rate 118 H 118 H 98 H Pulse Rate [ Right Brachial] Respiratory 20 Rate Blood Pressure 124/71 Blood Pressure [Left Arm] O2 Sat by Pulse 97 Oximetry 03/22/17 03/23/17 03/23/17 23:47 02:42 08:17 Temperature 97.8 F Pulse Rate 105 H 101 H 117 H Pulse Rate [ Right Brachial] Respiratory 20 Rate Blood Pressure 122/60 Blood Pressure [Left Arm] O2 Sat by Pulse 92 L Oximetry 03/23/17 10:31 Temperature Pulse Rate Pulse Rate [ Right Brachial] Respiratory Rate Blood Pressure 125/66 Blood Pressure [Left Arm] O2 Sat by Pulse Oximetry
--- NOTE | 2017-03-23 12:48 | CP.PCM.PN ---
Subjective - Date & Time of Evaluation Date of Evaluation: 03/23/17 Time of Evaluation: 12:47 - Subjective Subjective: pt is seen and examined, follow up consult is dictated #[id number] for extra hd today Objective - Vital Signs/Intake and Output Vital Signs (last 24 hours): Temp Pulse Resp BP Pulse Ox 97.8 F 117 H 20 125/66 92 L 03/23/17 08:17 03/23/17 08:17 03/23/17 08:17 03/23/17 10:31 03/23/17 08:17 Intake and Output: 03/23/17 03/23/17 06:59 18:59 Intake Total 1100 Output Total 750 Balance 350 - Medications Medications: Current Medications Acetaminophen (Tylenol 325mg Tab) 650 mg PO Q4H PRN PRN Reason: Fever >100.4 F Last Admin: 03/22/17 00:46 Dose: 650 mg Al Hydrox/Mg Hydrox/Simethicone (Maalox 30 Ml) 30 ml PO Q4H PRN PRN Reason: Heartburn Albuterol/Ipratropium (Duoneb 3 Mg/0.5 Mg (3 Ml) Ud) 3 ml INH RQ6 [facility] Last Admin: 03/23/17 07:07 Dose: 3 ml Allopurinol (Zyloprim) 100 mg PO DAILY [facility] Last Admin: 03/23/17 10:33 Dose: 100 mg Bismuth Subsalicylate (Pepto Bismol) 262 mg PO Q4 [facility]ENNY Last Admin: 03/23/17 12:41 Dose: 262 mg Cholestyramine Resin (Prevalite) 4 gm PO 2100 [facility] Last Admin: 03/22/17 20:21 Dose: 4 gm Cholestyramine Resin (Prevalite) 4 gm PO 0900 [facility] Last Admin: 03/23/17 09:07 Dose: Not Given Enalapril Maleate (Vasotec) 10 mg PO DAILY [facility] Last Admin: 03/23/17 10:31 Dose: 10 mg Epoetin Kyle (Procrit) 10,000 unit IV MWF [facility] Stop: 03/27/17 09:01 Last Admin: 03/22/17 16:09 Dose: 10,000 unit Finasteride (Proscar) 5 mg PO DAILY [facility] Last Admin: 03/23/17 10:34 Dose: 5 mg Gemfibrozil (Lopid) 600 mg PO HS [facility] Last Admin: 03/22/17 21:04 Dose: 600 mg Heparin Sodium (Porcine) (Heparin) 1,000 [place]P [facility] Stop: 03/27/17 09:01 Last Admin: 03/22/17 15:41 Dose: 1,000 units Hydralazine HCl (Apresoline) 25 mg PO Q8 [facility] Last Admin: 03/23/17 05:15 Dose: 25 mg Metronidazole (Flagyl) 500 mg in 100 mls @ 100 mls/hr IVPB Q8 [facility] Last Admin: 03/23/17 05:13 Dose: 100 mls/hr Piperacillin Sod/Tazobactam Sod (Zosyn 2.25 Gm Iv Premix) 2.25 gm in 50 mls @ 100 mls/hr IVPB Q8H [facility] Last Admin: 03/23/17 12:40 Dose: 100 mls/hr Multivitamins (Hexavitamin) 1 tab PO DAILY [facility] Last Admin: 03/23/17 10:31 Dose: 1 tab Pantoprazole Sodium (Protonix Ec Tab) 40 mg PO DAILY [facility] Last Admin: 03/23/17 10:33 Dose: 40 mg Paricalcitol (Zemplar) 2 mcg IV [facility] Stop: 03/24/17 09:01 Last Admin: 03/22/17 16:09 Dose: 2 mcg Saccharomyces Boulardii (Florastor) 250 mg PO BID [facility] Last Admin: 03/23/17 10:31 Dose: 250 mg Tamsulosin HCl (Flomax) 0.4 mg PO BID [facility] Last Admin: 03/23/17 10:31 Dose: 0.4 mg Vancomycin HCl (Vancocin (Oral Or Rectal Use)) 250 mg PO Q6H [facility] Last Admin: 03/23/17 12:41 Dose: 250 mg - Labs Labs: 03/22/17 05:14 03/22/17 05:14 PT 12.9 SECONDS (9.7-12.2) H 03/15/17 13:24 INR 1.2 03/15/17 13:24 APTT 29 SECONDS (21-34) 03/13/17 08:38
--- NOTE | 2017-03-23 13:19 | CP.PCM.PN ---
Subjective - Date & Time of Evaluation Date of Evaluation: 03/23/17 Time of Evaluation: 13:18 - Subjective Subjective: feels ok. Objective - Vital Signs/Intake and Output Vital Signs (last 24 hours): Temp Pulse Resp BP Pulse Ox 97.8 F 117 H 20 125/66 92 L 03/23/17 08:17 03/23/17 08:17 03/23/17 08:17 03/23/17 10:31 03/23/17 08:17 Intake and Output: 03/23/17 03/23/17 06:59 18:59 Intake Total 1100 Output Total 750 Balance 350 - Medications Medications: Current Medications Acetaminophen (Tylenol 325mg Tab) 650 mg PO Q4H PRN PRN Reason: Fever >100.4 F Last Admin: 03/22/17 00:46 Dose: 650 mg Al Hydrox/Mg Hydrox/Simethicone (Maalox 30 Ml) 30 ml PO Q4H PRN PRN Reason: Heartburn Albuterol/Ipratropium (Duoneb 3 Mg/0.5 Mg (3 Ml) Ud) 3 ml INH RQ6 [facility] Last Admin: 03/23/17 13:07 Dose: Not Given Allopurinol (Zyloprim) 100 mg PO DAILY [facility] Last Admin: 03/23/17 10:33 Dose: 100 mg Bismuth Subsalicylate (Pepto Bismol) 262 mg PO Q4 [facility] Last Admin: 03/23/17 12:41 Dose: 262 mg Cholestyramine Resin (Prevalite) 4 gm PO 2100 [facility] Last Admin: 03/22/17 20:21 Dose: 4 gm Cholestyramine Resin (Prevalite) 4 gm PO 0900 [facility] Last Admin: 03/23/17 09:07 Dose: Not Given Enalapril Maleate (Vasotec) 10 mg PO DAILY [facility] Last Admin: 03/23/17 10:31 Dose: 10 mg Epoetin Kyle (Procrit) 10,000 unit IV MWF [facility] Stop: 03/27/17 09:01 Last Admin: 03/22/17 16:09 Dose: 10,000 unit Finasteride (Proscar) 5 mg PO DAILY [facility] Last Admin: 03/23/17 10:34 Dose: 5 mg Gemfibrozil (Lopid) 600 mg PO HS [facility] Last Admin: 03/22/17 21:04 Dose: 600 mg Heparin Sodium (Porcine) (Heparin) [facility] Stop: 03/27/17 09:01 Last Admin: 03/22/17 15:41 Dose: 1,000 units Hydralazine HCl (Apresoline) 25 mg PO Q8 [facility] Last Admin: 03/23/17 05:15 Dose: 25 mg Metronidazole (Flagyl) 500 mg in 100 mls @ 100 mls/hr IVPB Q8 [facility] Last Admin: 03/23/17 05:13 Dose: 100 mls/hr Piperacillin Sod/Tazobactam Sod (Zosyn 2.25 Gm Iv Premix) 2.25 gm in 50 mls @ 100 mls/hr IVPB Q8H [facility] Last Admin: 03/23/17 12:40 Dose: 100 mls/hr Multivitamins (Hexavitamin) 1 tab PO DAILY [facility] Last Admin: 03/23/17 10:31 Dose: 1 tab Pantoprazole Sodium (Protonix Ec Tab) 40 mg PO DAILY [facility] Last Admin: 03/23/17 10:33 Dose: 40 mg Paricalcitol (Zemplar) 2 mcg IV [facility] Stop: 03/24/17 09:01 Last Admin: 03/22/17 16:09 Dose: 2 mcg Saccharomyces Boulardii (Florastor) 250 mg PO BID [facility] Last Admin: 03/23/17 10:31 Dose: 250 mg Tamsulosin HCl (Flomax) 0.4 mg PO BID [facility] Last Admin: 03/23/17 10:31 Dose: 0.4 mg Vancomycin HCl (Vancocin (Oral Or Rectal Use)) 250 mg PO Q6H [facility] Last Admin: 03/23/17 12:41 Dose: 250 mg - Labs Labs: 03/22/17 05:14 03/22/17 05:14 PT 12.9 SECONDS (9.7-12.2) H 03/15/17 13:24 INR 1.2 03/15/17 13:24 APTT 29 SECONDS (21-34) 03/13/17 08:38 - Constitutional Appears: No Acute Distress, Chronically Ill - Head Exam Head Exam: NORMOCEPHALIC - Respiratory Exam Respiratory Exam: Clear to Ausculation Bilateral - Cardiovascular Exam Cardiovascular Exam: REGULAR RHYTHM - GI/Abdominal Exam GI & Abdominal Exam: Soft - Extremities Exam Extremities Exam: absent: Pedal Edema - Neurological Exam Neurological Exam: Alert, Oriented x3 Assessment and Plan - Assessment and Plan (Free Text) Assessment: sinus on tele.no sob.had v/q scan.if neg he can be disc home.
--- NOTE | 2017-03-23 15:34 | NM ---
COMPARISON: Chest radiograph 03/22/2017. TECHNIQUE: 9.2 mCi Xenon 133 gas. 4.0 mCI technetium 99-m MAA administered intravenously. FINDINGS: VENTILATION COMPONENT: Limited air-trapping is seen at the latter phase of the ventilation segment with nevertheless homogeneous activity appreciated throughout the majority of ventilation. PERFUSION COMPONENT: There is a large perfusion defect identified at the inferior zones of the left lower lobe across multiple segments with remaining profusion unremarkable throughout the remainder of the left lung and the entire right lung. This pattern is repeated in multiple views. IMPRESSION: Intermediateprobability ventilation perfusion scan for pulmonary embolism.
--- NOTE | 2017-03-23 17:24 | CP.PCM.PN ---
Subjective - Date & Time of Evaluation Date of Evaluation: 03/23/17 Time of Evaluation: 17:00 - Subjective Subjective: Patient seen today, denies any abdominal pain , n/v/d , c/o right sided chest pain an dsob on and off and tacypnea on monitor periods of hr in 130 's overnigh t d- dimer elevated Objective - Vital Signs/Intake and Output Vital Signs (last 24 hours): Temp Pulse Resp BP Pulse Ox 97.5 F L 103 H 17 132/82 100 03/23/17 15:45 03/23/17 16:58 03/23/17 16:58 03/23/17 16:58 03/23/17 16:58 Intake and Output: 03/23/17 03/23/17 06:59 18:59 Intake Total 1100 Output Total 750 Balance 350 - Medications Medications: Current Medications Acetaminophen (Tylenol 325mg Tab) 650 mg PO Q4H PRN PRN Reason: Fever >100.4 F Last Admin: 03/22/17 00:46 Dose: 650 mg Al Hydrox/Mg Hydrox/Simethicone (Maalox 30 Ml) 30 ml PO Q4H PRN PRN Reason: Heartburn Albuterol/Ipratropium (Duoneb 3 Mg/0.5 Mg (3 Ml) Ud) 3 ml INH RQ6 [facility] Last Admin: 03/23/17 13:07 Dose: Not Given Allopurinol (Zyloprim) 100 mg PO DAILY [facility] Last Admin: 03/23/17 10:33 Dose: 100 mg Bismuth Subsalicylate (Pepto Bismol) 262 mg PO Q4 [facility] Last Admin: 03/23/17 16:07 Dose: Not Given Cholestyramine Resin (Prevalite) 4 gm PO 2100 [facility] Last Admin: 03/22/17 20:21 Dose: 4 gm Cholestyramine Resin (Prevalite) 4 gm PO 0900 [facility] Last Admin: 03/23/17 09:07 Dose: Not Given Enalapril Maleate (Vasotec) 10 mg PO DAILY [facility] Last Admin: 03/23/17 10:31 Dose: 10 mg Epoetin Kyle (Procrit) 10,000 unit IV MWF [facility] Stop: 03/27/17 09:01 Last Admin: 03/22/17 16:09 Dose: 10,000 unit Finasteride (Proscar) 5 mg PO DAILY [facility] Last Admin: 03/23/17 10:34 Dose: 5 mg Gemfibrozil (Lopid) 600 mg PO HS [facility] Last Admin: 03/22/17 21:04 Dose: 600 mg Heparin Sodium (Porcine) (Heparin) 1,000 units IVP MWF [facility] Stop: 03/27/17 09:01 Last Admin: 03/22/17 15:41 Dose: 1,000 units Heparin Sodium (Porcine) (Heparin) 5,000 units SC Q8 [facility] Hydralazine HCl (Apresoline) 25 mg PO Q8 [facility] Last Admin: 03/23/17 14:35 Dose: 25 mg Metronidazole (Flagyl) 500 mg in 100 mls @ 100 mls/hr IVPB Q8 [facility] Last Admin: 03/23/17 14:35 Dose: 100 mls/hr Piperacillin Sod/Tazobactam Sod (Zosyn 2.25 Gm Iv Premix) 2.25 gm in 50 mls @ 100 mls/hr IVPB Q8H [facility] Last Admin: 03/23/17 12:40 Dose: 100 mls/hr Multivitamins (Hexavitamin) 1 tab PO DAILY [facility] Last Admin: 03/23/17 10:31 Dose: 1 tab Pantoprazole Sodium (Protonix Ec Tab) 40 mg PO DAILY [facility] Last Admin: 03/23/17 10:33 Dose: 40 mg Paricalcitol (Zemplar) 2 mcg IV [facility] [place] Stop: 03/24/17 09:01 Last Admin: 03/22/17 16:09 Dose: 2 mcg Saccharomyces Boulardii (Florastor) 250 mg PO BID [facility] Last Admin: 03/23/17 10:31 Dose: 250 mg Tamsulosin HCl (Flomax) 0.4 mg PO BID [facility] Last Admin: 03/23/17 10:31 Dose: 0.4 mg Vancomycin HCl (Vancocin (Oral Or Rectal Use)) 250 mg PO Q6H [facility] Last Admin: 03/23/17 12:41 Dose: 250 mg - Labs Labs: 03/22/17 05:14 03/22/17 05:14 PT 12.9 SECONDS (9.7-12.2) H 03/15/17 13:24 INR 1.2 03/15/17 13:24 APTT 29 SECONDS (21-34) 03/13/17 08:38 Assessment and Plan - Assessment and Plan (Free Text) Assessment: A/P 76 yr old mal eadmitted with diarrhea/ c- dif positive D- Dimer elevated and episodes of R sided chest pain an d sob and hypotension VQ scan ordered pending result D/W Dr. holland if VQ scan negative pt can be discharge d home D/W DR. Gibson , regarding HD schedule , out pt T, , SAT and in hospital MWF , for short HD today and pt can be discharged home from nephrology stand point VQ scan result- intermediate probability of PE D/W with Dr. Cole, Dr. Melo on pul. consult D/W Dr. Melo, recommends to CT angio PE protocol and will see pt The above plan discussed with Dr. Cole and agrees
--- NOTE | 2017-03-23 18:07 | CP.PCM.CON ---
History of Present Illness - History of Present Illness History of Present Illness: REASON FOR CONSULTATION: ELEVATED D-DIMER AND SHORTNESS OF BREATH 76-year-old male with history of hypertension, anemia, end-stage renal disease on hemodialysis was admitted with chief complaints of diarrea and is being treated for C. difficile colitis. Patient had VQ scan done for elevated d-dimer and shortness of breath. VQ scan consistent with intermediate probability for PE. Patient denies any swelling of legs denies chest pain. Patient seen during dialysis in no respiratory distress. Review of Systems - Review of Systems Systems not reviewed;Unavailable: Language Barrier Past Patient History - Infectious Disease Hx of Infectious Diseases: None - Past Medical History & Family History Past Medical History?: Yes - Past Social History Smoking Status: Former Smoker - CARDIAC Hx Hypercholesterolemia: Yes Hx Hypertension: Yes - PULMONARY Hx Respiratory Disorders: No Other/Comment: former smoker, SOB with exertion - NEUROLOGICAL Hx Neurological Disorder: No - HEENT Hx HEENT Problems: No - RENAL Hx Chronic Kidney Disease: Yes - ENDOCRINE/METABOLIC Hx Diabetes Mellitus Type 2: Yes - HEMATOLOGICAL/ONCOLOGICAL Hx Anemia: Yes - INTEGUMENTARY Hx Dermatological Problems: No - MUSCULOSKELETAL/RHEUMATOLOGICAL Hx Musculoskeletal Disorders: Yes Hx Falls: Yes Other/Comment: BLE weakness - GASTROINTESTINAL Hx Gastritis: Yes - GENITOURINARY/GYNECOLOGICAL Hx Genitourinary Disorders: Yes Other/Comment: BPH - PSYCHIATRIC Hx Substance Use: No - SURGICAL HISTORY Hx Appendectomy: Yes - ANESTHESIA Hx Anesthesia: Yes Meds Allergies/Adverse Reactions: Allergies Allergy/AdvReac Type Severity Reaction Status Date / Time calcium carbonate [From Tums] Allergy Verified 03/11/17 16:34 dates Allergy Uncoded 03/11/17 16:34 - Medications Medications: Current Medications Acetaminophen (Tylenol 325mg Tab) 650 mg PO Q4H PRN PRN Reason: Fever >100.4 F Last Admin: 03/22/17 00:46 Dose: 650 mg Al Hydrox/Mg Hydrox/Simethicone (Maalox 30 Ml) 30 ml PO Q4H PRN PRN Reason: Heartburn Albuterol/Ipratropium (Duoneb 3 Mg/0.5 Mg (3 Ml) Ud) 3 ml INH RQ6 [facility] Last Admin: 03/23/17 13:07 Dose: Not Given Allopurinol (Zyloprim) 100 mg PO DAILY [facility] Last Admin: 03/23/17 10:33 Dose: 100 mg Bismuth Subsalicylate (Pepto Bismol) 262 mg PO Q4 [facility] Last Admin: 03/23/17 16:07 Dose: Not Given Cholestyramine Resin (Prevalite) 4 gm PO 2100 [facility] Last Admin: 03/22/17 20:21 Dose: 4 gm Cholestyramine Resin (Prevalite) 4 gm PO 0900 [facility] Last Admin: 03/23/17 09:07 Dose: Not Given Enalapril Maleate (Vasotec) 10 mg PO DAILY [facility] Last Admin: 03/23/17 10:31 Dose: 10 mg Epoetin [place] (Procrit) 10,000 [place] [facility] [place]: 03/27/17 09:01 Last Admin: 03/22/17 16:09 Dose: 10,000 unit Finasteride (Proscar) 5 mg PO DAILY [facility] Last Admin: 03/23/17 10:34 Dose: 5 mg Gemfibrozil (Lopid) 600 mg PO HS [facility] Last Admin: 03/22/17 21:04 Dose: 600 mg Heparin Sodium (Porcine) (Heparin) 1,000 units IVP [facility] [place] Stop: 03/27/17 09:01 Last Admin: 03/22/17 15:41 Dose: 1,000 units Heparin Sodium (Porcine) (Heparin) 5,000 units SC Q8 [facility] Hydralazine HCl (Apresoline) 25 mg PO Q8 [facility] Last Admin: 03/23/17 14:35 Dose: 25 mg Metronidazole (Flagyl) 500 mg in 100 mls @ 100 mls/hr IVPB Q8 [facility] Last Admin: 03/23/17 14:35 Dose: 100 mls/hr Piperacillin Sod/Tazobactam Sod (Zosyn 2.25 Gm Iv Premix) 2.25 gm in 50 mls @ 100 mls/hr IVPB Q8H [facility] Last Admin: 03/23/17 12:40 Dose: 100 mls/hr Multivitamins (Hexavitamin) 1 tab PO DAILY [facility] Last Admin: 03/23/17 10:31 Dose: 1 tab Pantoprazole Sodium (Protonix Ec Tab) 40 mg PO DAILY [facility] Last Admin: 03/23/17 10:33 Dose: 40 mg Paricalcitol (Zemplar) 2 mcg IV [facility] [place] Stop: 03/24/17 09:01 Last Admin: 03/22/17 16:09 Dose: 2 mcg Saccharomyces Boulardii (Florastor) 250 mg PO BID [facility] Last Admin: 03/23/17 10:31 Dose: 250 mg Tamsulosin HCl (Flomax) 0.4 mg PO BID [facility] Last Admin: 03/23/17 10:31 Dose: 0.4 mg Vancomycin HCl (Vancocin (Oral Or Rectal Use)) 250 mg PO Q6H [facility] Last Admin: 03/23/17 12:41 Dose: 250 mg Physical Exam - Head Exam Head Exam: ATRAUMATIC, NORMOCEPHALIC - Eye Exam Eye Exam: Normal appearance - ENT Exam ENT Exam: Mucous Membranes Moist - Neck Exam Neck exam: Positive for: Normal Inspection - Respiratory Exam Respiratory Exam: Clear to Auscultation Bilateral - Cardiovascular Exam Cardiovascular Exam: REGULAR RHYTHM - GI/Abdominal Exam GI & Abdominal Exam: Normal Bowel Sounds, Soft - Extremities Exam Extremities exam: Positive for: normal inspection Results - Vital Signs Recent Vital Signs: Last Vital Signs Temp 97.5 F L 03/23/17 15:45 Pulse 103 H 03/23/17 16:58 Resp 17 03/23/17 16:58 BP 132/82 03/23/17 16:58 Pulse Ox 100 03/23/17 16:58 - Labs Result Diagrams: 03/22/17 05:14 03/22/17 05:14 Labs: Laboratory Results - last 24 hr 03/22/17 03/22/17 03/22/17 16:36 17:56 21:08 POC Glucose (mg/dL) 141 H 154 H Total Creatine Kinase < 20 L CK-MB (Mass) 0.83 Troponin I 0.0370 03/23/17 03/23/17 06:08 11:20 POC Glucose (mg/dL) 116 H 102 Total Creatine Kinase CK-MB (Mass) Troponin I Assessment & Plan (1) Shortness of breath Status: Acute Comment: most likely secondary to fluid overload. Consider CT angiogram. nebulizer treatment (2) C. difficile diarrhea Status: Acute (3) CKD (chronic kidney disease) Status: Acute
--- NOTE | 2017-03-23 19:33 | PN ---
DATE: FOLLOWUP RENAL CONSULTATION LOCATION: The patient is located in room 557, bed A. REQUESTED BY: Yeison Cole MD. REASON FOR FOLLOWUP: End-stage renal disease, for continuation of hemodialysis. SUBJECTIVE: Mr. Cho is a 76 years old elderly male with a past medical history significant for longstanding hypertension; BPH; CHF; anemia; end-stage renal disease, on hemodialysis 3 times a week, Monday, , Monday for the last 3 to 4 months; who was admitted with a chief complaints of 2 weeks to 2 weeks' history of loose bowel movement and weakness and increased WBC count and the patient was found to have a C. diff colitis. The patient is being treated with IV Flagyl and p.o. vancomycin and also complains of mild shortness of breath this morning. Denies any chest pain, palpitation. Also complains of constipation. PHYSICAL EXAMINATION: GENERAL: Mr. Cho is a 76 years old elderly male, well built, well nourished, no in any distress. VITAL SIGNS: As follows, blood pressure this morning 122/60, pulse 117, respirations 20, temperature 97.8, saturation 92%. Height 5 feet 8 inches and weight is 192 pounds. HEENT: Pupils are normal and reactive to light and accommodation. Conjunctivae pink. Sclerae anicteric. Tongue is moist. Trachea is midline. LUNGS: Symmetric on both sides. Bilateral breath sounds present. Occasional basal crackles present. CARDIOVASCULAR SYSTEM: Ronceverte at the fifth intercostal space, midclavicular line. S1 and S2 audible. No murmur or gallop. ABDOMEN: Normal in appearance, soft, tympanic. No guarding. No rigidity. No hepatosplenomegaly. CENTRAL NERVOUS SYSTEM: The patient is alert, awake, oriented x3. Nonfocal neuro examination. Cranial nerves II through XII grossly intact. Sensory and motor system is within normal limits. EXTREMITIES: No cyanosis. No clubbing. No edema. MEDICATIONS: His current medications include as follows, hydralazine 25 mg p.o. q. 8 hours and DuoNeb inhaler 3 mL q. 6 hours and Flagyl 500 mg q. 8 hours and Flomax 0.4 mg p.o. b.i.d., Florastor and heparin 1000 units 3 times a week during dialysis and also heparin 5000 units subcu 3 times a day and multivitamin 1 tablet daily and Lopid 600 mg p.o. daily, Maalox, Pepto-Bismol and cholestyramine, Procrit 10,000 units 3 times a week and Protonix 40 mg daily, Tylenol and vancomycin 250 mg p.o. q. 6 hours, enalapril 10 mg p.o. daily and Zemplar 2 mcg 3 times a week and Zosyn 2.25 g q. 8 hours and allopurinol 100 mg daily. His Accu-Cheks 116 and 102. VQ scan: There is a large effusion defect identified at the inferior zone of the left lower lobe across multiple segments with remaining perfusion unremarkable throughout the remainder of the left lung and the entire right lung despite it is repeated in multiple views. Impression: Intermediate probability ventilation perfusion scan for pulmonary embolism. ASSESSMENT AND PLAN: In summary, Mr. Cho is an about 76 years old elderly male with a history of hypertension; benign prostatic hypertrophy; arthritis; anemia, end-stage renal disease, on hemodialysis 3 times a week and was admitted with diarrhea and now complains mild shortness of breath and cough. VQ scan is intermediate probability. 1. End-stage renal disease. Continue hemodialysis 3 times a week, Monday, , Monday. The patient is being discharged today. The patient is giving extra diuresis and extra dialysis today to keep his outpatient dialysis in scheduled Monday, , Monday. 2. Hypertension. Blood pressure is stable. 3. Congestive heart failure. 4. Rule out pulmonary embolism. VQ scan is intermediate probability. Consider CT angiogram if needed. Follow up with Pulmonary for further management. The patient is refusing extra dialysis. Thank you for allowing me to participate in your patient's care. Emir Kirk MD
--- NOTE | 2017-03-23 23:45 | CT ---
EXAM: CT Angiography Chest With Intravenous Contrast CLINICAL HISTORY: 76 years old, male; Pain; Chest pain; Additional info: R/O pe , intermediate probability v q scan TECHNIQUE: Axial computed tomographic angiography images of the chest with intravenous contrast using pulmonary embolism protocol. All CT scans at this facility use one or more dose reduction techniques, viz.: automated exposure control; ma/kV adjustment per patient size (including targeted exams where dose is matched to indication; i.e. head); or iterative reconstruction technique. MIP reconstructed images were created and reviewed. Coronal and sagittal reformatted images were created and reviewed. CONTRAST: 100 mL of [id number] administered intravenously. COMPARISON: No relevant prior studies available. FINDINGS: Limitations: Motion artifact - mild. Pulmonary arteries: Few apparent faint filling defects within segmental, subsegmental branches of pulmonary arteries. No saddle embolus. Aorta: Moderate atherosclerotic disease. No aneurysm. Lungs: Mild peripheral consolidation within lower lobes, LEFT greater than RIGHT. Minimal peripheral consolidation within LEFT upper lobe. Pleural space: Small bilateral pleural effusions. No pneumothorax. Heart: No cardiomegaly. No significant pericardial effusion. Coronary artery calcifications. Bones/joints: Mild degenerative changes of spine. No acute fracture. Soft tissues: [id number] stranding within soft tissues LEFT lateral lower chest/upper abdominal wall. Probable sebaceous cyst within LEFT lateral upper chest wall. Lymph nodes: No pathologically enlarged lymph nodes. Gallbladder and bile ducts: Gallstones. Kidneys and ureters: Mild stranding about kidneys, nonspecific. Tubes, lines and devices: Central venous catheter. IMPRESSION: 1. Apparent filling defects within segmental, subsegmental branches of pulmonary arteries. Distal emboli not excluded. 2. Bilateral pleural effusions with bibasilar atelectasis and/or pneumonia. 3. Incidental/non-acute findings are described above.
--- NOTE | 2017-03-23 23:46 | CP.PCM.PN ---
Subjective - Date & Time of Evaluation Date of Evaluation: 03/23/17 Time of Evaluation: 09:15 - Subjective Subjective: Pt is c/o shortness of breath, he is for CT angio Objective - Vital Signs/Intake and Output Vital Signs (last 24 hours): Temp Pulse Resp BP Pulse Ox 98.1 F 103 H 20 138/68 97 03/23/17 19:59 03/23/17 19:59 03/23/17 19:59 03/23/17 19:59 03/23/17 19:59 Intake and Output: 03/23/17 03/24/17 18:59 06:59 Output Total 400 Balance -400 - Medications Medications: Current Medications Acetaminophen (Tylenol 325mg Tab) 650 mg PO Q4H PRN PRN Reason: Fever >100.4 F Last Admin: 03/22/17 00:46 Dose: 650 mg Al Hydrox/Mg Hydrox/Simethicone (Maalox 30 Ml) 30 ml PO Q4H PRN PRN Reason: Heartburn Albuterol/Ipratropium (Duoneb 3 Mg/0.5 Mg (3 Ml) Ud) 3 ml INH RQ6 [facility] Last Admin: 03/23/17 21:09 Dose: 3 ml Allopurinol (Zyloprim) 100 mg PO DAILY [facility] Last Admin: 03/23/17 10:33 Dose: 100 mg Bismuth Subsalicylate (Pepto Bismol) 262 mg PO Q4 [facility] Last Admin: 03/23/17 21:17 Dose: 262 mg Cholestyramine Resin (Prevalite) 4 gm PO 2100 [facility] Last Admin: 03/23/17 21:57 Dose: 4 gm Cholestyramine Resin (Prevalite) 4 gm PO 0900 [facility] Last Admin: 03/23/17 09:07 Dose: Not Given Enalapril Maleate (Vasotec) 10 mg PO DAILY [facility] Last Admin: 03/23/17 10:31 Dose: 10 mg Epoetin Kyle (Procrit) 10,000 unit IV MWF [facility] Stop: 03/27/17 09:01 Last Admin: 03/22/17 16:09 Dose: 10,000 unit Finasteride (Proscar) 5 mg PO DAILY [facility] Last Admin: 03/23/17 10:34 Dose: 5 mg Gemfibrozil (Lopid) 600 mg PO HS [facility] Last Admin: 03/23/17 21:57 Dose: 600 mg Heparin Sodium (Porcine) (Heparin) 1,000 units IVP MWF [facility] Stop: 03/27/17 09:01 Last Admin: 03/22/17 15:41 Dose: 1,000 units Heparin Sodium (Porcine) (Heparin) 5,000 units SC Q8 [facility] Last Admin: 03/23/17 22:50 Dose: 5,000 units Hydralazine HCl (Apresoline) 25 mg PO Q8 [facility] Last Admin: 03/23/17 21:57 Dose: 25 mg Metronidazole (Flagyl) 500 mg in 100 mls @ 100 mls/hr IVPB Q8 [facility] Last Admin: 03/23/17 21:57 Dose: 100 mls/hr Piperacillin Sod/Tazobactam Sod (Zosyn 2.25 Gm Iv Premix) 2.25 gm in 50 mls @ 100 mls/hr IVPB Q8H [facility] Last Admin: 03/23/17 19:50 Dose: 100 mls/hr Multivitamins (Hexavitamin) 1 tab PO DAILY [facility] Last Admin: 03/23/17 10:31 Dose: 1 tab Pantoprazole Sodium (Protonix Ec Tab) 40 mg PO DAILY [facility] Last Admin: 03/23/17 10:33 Dose: 40 mg Paricalcitol (Zemplar) 2 mcg IV [facility] [place] Stop: 03/24/17 09:01 Last Admin: 03/22/17 16:09 Dose: 2 mcg Saccharomyces Boulardii (Florastor) 250 mg PO BID [facility] Last Admin: 03/23/17 21:17 Dose: 250 mg Tamsulosin HCl (Flomax) 0.4 mg PO BID [facility] Last Admin: 03/23/17 21:17 Dose: 0.4 mg Vancomycin HCl (Vancocin (Oral Or Rectal Use)) 250 mg PO Q6H [facility] Last Admin: 03/23/17 19:50 Dose: 250 mg - Labs Labs: 03/22/17 05:14 03/22/17 05:14 PT 12.9 SECONDS (9.7-12.2) H 03/15/17 13:24 INR 1.2 03/15/17 13:24 APTT 29 SECONDS (21-34) 03/13/17 08:38 - Constitutional Appears: No Acute Distress - Respiratory Exam Respiratory Exam: Decreased Breath Sounds, Rales, Rhonchi - Cardiovascular Exam Cardiovascular Exam: REGULAR RHYTHM, +S1, +S2. absent: Murmur - GI/Abdominal Exam GI & Abdominal Exam: Soft, Normal Bowel Sounds. absent: Tenderness - Rectal Exam Rectal Exam: Deferred Assessment and Plan (1) Abdominal tenderness, LLQ (left lower quadrant) Status: Acute (2) Acute diarrhea Status: Acute (3) C. difficile diarrhea Status: Acute (4) CKD (chronic kidney disease) Status: Acute (5) Complicated urinary tract infection Status: Acute (6) Shortness of breath Status: Acute (7) Urinary retention Status: Acute
[2017-03-24] MEDS: Vancomycin 125 MG/5 ML SOLN (ORAL/RECTAL) PO SCH ×5 (01:09→23:57)
[2017-03-24] MEDS: Bismuth Subsalicylate 262 mg Chew Tab PO SCH ×7 (01:10→23:58)
[2017-03-24] MEDS: Albuterol-Ipratrop 3 mg / 0.5 (3 ml) UD INH SCH ×4 (01:34→19:19)
[2017-03-24] MEDS: Piperacill/Tazo 2.25gm in Dex 2.25 GM/50 ML BAG IVPB SCH ×3 (03:00→19:38)
[2017-03-24] MEDS: metroNIDAZOLE IV 500 mg/100 ml 500 MG/100 ML BAG IVPB SCH ×3 (06:13→22:35)
[2017-03-24 07:55] LABS: INR 1.2
[2017-03-24] MEDS: Saccharomyces Boulardi 250 mg Cap PO SCH ×2 (11:07→17:37)
[2017-03-24] MEDS: Multiple Vitamins Tab PO SCH (11:08)
[2017-03-24] MEDS: Pantoprazole 40 mg EC Tab PO SCH (11:08)
[2017-03-24] MEDS: Cholestyramine 4 gm/5.5 gm UD Packet PO SCH ×2 (11:13→21:00)
--- NOTE | 2017-03-24 11:18 | CP.PCM.PN ---
Subjective - Date & Time of Evaluation Date of Evaluation: 03/24/17 Time of Evaluation: 08:50 - Subjective Subjective: The patient seen and examined. Complaining of diarrhea Denies shortness of breath Denies chest pain Denies cough Status post hemodialysis yesterday Objective - Vital Signs/Intake and Output Vital Signs (last 24 hours): Temp Pulse Resp BP Pulse Ox 98 F 112 H 20 142/76 95 03/23/17 23:25 03/24/17 04:59 03/23/17 23:25 03/24/17 04:59 03/23/17 23:25 Intake and Output: 03/24/17 03/24/17 06:59 18:59 Intake Total 350 Output Total 400 300 Balance -400 50 - Medications Medications: Current Medications Acetaminophen (Tylenol 325mg Tab) 650 mg PO Q4H PRN PRN Reason: Fever >100.4 F Last Admin: 03/24/17 01:07 Dose: 650 mg Al Hydrox/Mg Hydrox/Simethicone (Maalox 30 Ml) 30 ml PO Q4H PRN PRN Reason: Heartburn Albuterol/Ipratropium (Duoneb 3 Mg/0.5 Mg (3 Ml) Ud) 3 ml INH RQ6 [facility] Last Admin: 03/24/17 08:18 Dose: 3 ml Allopurinol (Zyloprim) 100 mg PO DAILY [facility] Last Admin: 03/24/17 11:09 Dose: 100 mg Bismuth Subsalicylate (Pepto Bismol) 262 mg PO Q4 [facility] Last Admin: 03/24/17 08:40 Dose: Not Given Cholestyramine Resin (Prevalite) 4 gm PO 2100 [facility] Last Admin: 03/23/17 21:57 Dose: 4 gm Cholestyramine Resin (Prevalite) 4 gm PO 0900 [facility] Last Admin: 03/24/17 11:13 Dose: 4 gm Enalapril Maleate (Vasotec) 10 mg PO DAILY [facility] Last Admin: 03/23/17 10:31 Dose: 10 mg Epoetin Kyle (Procrit) 10,000 unit IV MWF [facility] Stop: 03/27/17 09:01 Last Admin: 03/22/17 16:09 Dose: 10,000 unit Finasteride (Proscar) 5 mg PO DAILY [facility] Last Admin: 03/24/17 11:07 Dose: 5 mg Gemfibrozil (Lopid) 600 mg PO HS [facility] Last Admin: 03/23/17 21:57 Dose: 600 mg Heparin Sodium (Porcine) (Heparin) 1,000 units IVP MWF [facility] Stop: 03/27/17 09:01 Last Admin: 03/22/17 15:41 Dose: 1,000 units Heparin Sodium (Porcine) (Heparin) 5,000 units SC Q8 [facility] Last Admin: 03/24/17 06:12 Dose: 5,000 units Hydralazine HCl (Apresoline) 25 mg PO Q8 [facility] Last Admin: 03/24/17 06:12 Dose: 25 mg Metronidazole (Flagyl) 500 mg in 100 mls @ 100 mls/hr IVPB Q8 [facility] Last Admin: 03/24/17 06:13 Dose: 100 mls/hr Piperacillin Sod/Tazobactam Sod (Zosyn 2.25 Gm Iv Premix) 2.25 gm in 50 mls @ 100 mls/hr IVPB Q8H [facility] Last Admin: 03/24/17 11:04 Dose: 100 mls/hr Multivitamins (Hexavitamin) 1 tab PO DAILY [facility] Last Admin: 03/24/17 11:08 Dose: 1 tab Pantoprazole Sodium (Protonix Ec Tab) 40 mg PO DAILY [facility] Last Admin: 03/24/17 11:08 Dose: 40 mg Saccharomyces Boulardii (Florastor) 250 mg PO BID [facility] Last Admin: 03/24/17 11:07 Dose: 250 mg Tamsulosin HCl (Flomax) 0.4 mg PO BID [facility] Last Admin: 03/24/17 11:07 Dose: 0.4 mg Vancomycin HCl (Vancocin (Oral Or Rectal Use)) 250 mg PO Q6H [facility] Last Admin: 03/24/17 06:26 Dose: 250 mg - Labs Labs: 03/22/17 05:14 03/22/17 05:14 PT 13.3 SECONDS (9.7-12.2) H 03/24/17 07:33 INR 1.2 03/24/17 07:33 APTT 29 SECONDS (21-34) 03/13/17 08:38 - Head Exam Head Exam: ATRAUMATIC, NORMOCEPHALIC - ENT Exam ENT Exam: Mucous Membranes Moist - Neck Exam Neck Exam: Normal Inspection - Respiratory Exam Respiratory Exam: Clear to Ausculation Bilateral - Cardiovascular Exam Cardiovascular Exam: REGULAR RHYTHM - GI/Abdominal Exam GI & Abdominal Exam: Soft, Normal Bowel Sounds - Extremities Exam Extremities Exam: Normal Inspection Assessment and Plan (1) Shortness of breath Assessment & Plan: elevated d-dimer VQ scan intermediate probability Will get CT angio to rule out pulmonary embolism Continue hemodialysis Continue treatment for C. diffici Status: Acute (2) C. difficile diarrhea Status: Acute (3) CKD (chronic kidney disease) Status: Acute
[2017-03-24] MEDS ORDERED: Heparin25000 units/250ml 1/2NS 25,000 UNITS/250 ML BAG IV PRN (14:31)
--- NOTE | 2017-03-24 14:36 | CP.PCM.PN ---
Subjective - Date & Time of Evaluation Date of Evaluation: 03/24/17 Time of Evaluation: 14:33 - Subjective Subjective: PT DISCUSSED DURING MORNING MULTIDISCIPLINARY ROUNDS AND PER THE PRIMARY RN KATINA, PT HAD A VQ SCAN (SEE OFFICIAL REPORT) AND CT CHEST TO R/O PE (SEE OFFICIAL REPORT). PER KATINA RN, SENIOR EMBEDDED SOFTWARE ENGINEER NURSE WAS INFORMED BY ATTENDING THAT THE CT WAS NEG. EXECUTIVE MARKETING ASSISTANT DISCUSSED FINDINGS WITH DR. PLUMMER AND CANCELLED REPEAT CT CHEST ORDERED BY DR. PLUMMER; HE WAS NEVER NOTIFIED OF THE RESULTS FORM THE CHEST CT LAST NIGHT. PER Bhumika PLUMMER PT IS POSITIVE FOR PE BASED ON THE CT RESULTS AND PT NEEDS TO BE ON HEPAIRN DRIP. STAT LABS AND HEPARIN DRIP ORDERED BY EXECUTIVE MARKETING ASSISTANT. THIS WAS ALL DISCUSSED WITH DR. JOE AND OK PER HIM. ALL OF THIS DISCUSSED WITH THE PRIMARY RN KATINA. NO FURTHER ORDERS. Objective - Vital Signs/Intake and Output Vital Signs (last 24 hours): Temp Pulse Resp BP Pulse Ox 98 F 112 H 20 120/65 95 03/23/17 23:25 03/24/17 04:59 03/23/17 23:25 03/24/17 13:45 03/23/17 23:25 Intake and Output: 03/24/17 03/24/17 06:59 18:59 Intake Total 350 Output Total 400 300 Balance -400 50 - Medications Medications: Current Medications Acetaminophen (Tylenol 325mg Tab) 650 mg PO Q4H PRN PRN Reason: Fever >100.4 F Last Admin: 03/24/17 01:07 Dose: 650 mg Al Hydrox/Mg Hydrox/Simethicone (Maalox 30 Ml) 30 ml PO Q4H PRN PRN Reason: Heartburn Albuterol/Ipratropium (Duoneb 3 Mg/0.5 Mg (3 Ml) Ud) 3 ml INH RQ6 [facility] Last Admin: 03/24/17 13:43 Dose: 3 ml Allopurinol (Zyloprim) 100 mg PO DAILY [facility] Last Admin: 03/24/17 11:09 Dose: 100 mg Bismuth Subsalicylate (Pepto Bismol) 262 mg PO Q4 [facility] Last Admin: 03/24/17 12:40 Dose: Not Given Cholestyramine Resin (Prevalite) 4 gm PO 2100 [facility] Last Admin: 03/23/17 21:57 Dose: 4 gm Cholestyramine Resin (Prevalite) 4 gm PO 0900 [facility] Last Admin: 03/24/17 11:13 Dose: 4 gm Enalapril Maleate (Vasotec) 10 mg PO DAILY [facility] Last Admin: 03/24/17 13:45 Dose: Not Given Epoetin Kyle (Procrit) 10,000 unit IV [facility] Stop: 03/27/17 09:01 Last Admin: 03/22/17 16:09 Dose: 10,000 unit Finasteride (Proscar) 5 mg PO DAILY [facility] Last Admin: 03/24/17 11:07 Dose: 5 mg Gemfibrozil (Lopid) 600 mg PO HS [facility] Last Admin: 03/23/17 21:57 Dose: 600 mg Heparin Sodium (Porcine) (Heparin) 1,000 units IVP [facility] Stop: 03/27/17 09:01 Last Admin: 03/22/17 15:41 Dose: 1,000 units Hydralazine HCl (Apresoline) 25 mg PO Q8 [facility] Last Admin: 03/24/17 13:46 Dose: Not Given Metronidazole (Flagyl) 500 mg in 100 mls @ 100 mls/hr IVPB Q8 [facility] Last Admin: 03/24/17 13:42 Dose: 100 mls/hr Piperacillin Sod/Tazobactam Sod (Zosyn 2.25 Gm Iv Premix) 2.25 gm in 50 mls @ 100 mls/hr IVPB Q8H [facility] Last Admin: 03/24/17 11:04 Dose: 100 mls/hr Multivitamins (Hexavitamin) 1 tab PO DAILY [facility] Last Admin: 03/24/17 11:08 Dose: 1 tab Pantoprazole Sodium (Protonix Ec Tab) 40 mg PO DAILY [facility] Last Admin: 03/24/17 11:08 Dose: 40 mg Saccharomyces Boulardii (Florastor) 250 mg PO BID [facility] Last Admin: 03/24/17 11:07 Dose: 250 mg Tamsulosin HCl (Flomax) 0.4 mg PO BID [facility] Last Admin: 03/24/17 11:07 Dose: 0.4 mg Vancomycin HCl (Vancocin (Oral Or Rectal Use)) 250 mg PO Q6H [facility] Last Admin: 03/24/17 13:44 Dose: 250 mg - Labs Labs: 03/22/17 05:14 12/06/17 05:14 PT 13.3 SECONDS (9.7-12.2) H 03/24/17 07:33 INR 1.2 03/24/17 07:33 APTT 29 SECONDS (21-34) 03/13/17 08:38
[2017-03-24 15:15] LABS: HEMATOCRIT 32.8 % (35.0-51.0); MEAN CELL VOLUME 91.4 fL (80.0-94.0); MEAN CORPUSCULAR HEMOGLOBIN 29.7 pg (27.0-31.0); MEAN CORPUSCULAR HGB CONC 32.5 g/dL (33.0-37.0); MEAN PLATELET VOLUME 7.1 fL (7.2-11.7); RED CELL DISTRIBUTION WIDTH 19.7 % (11.5-14.5)
[2017-03-24 15:38] LABS: ALB/GLOB RATIO 0.7 (1.0-2.1); BILIRUBIN,TOTAL 0.3 mg/dL (0.2-1.3); CALCIUM 7.8 mg/dl (8.6-10.4); POTASSIUM 3.7 mmol/L (3.6-5.2); TOTAL PROTEIN 6.4 g/dL (6.3-8.3)
[2017-03-24 16:51] LABS: INR 1.1
--- NOTE | 2017-03-24 18:11 | CP.PCM.PN ---
Subjective - Date & Time of Evaluation Date of Evaluation: 03/24/17 Time of Evaluation: 18:10 - Subjective Subjective: pt is seen and examined by, follow up consult is dictated #[id number] Objective - Vital Signs/Intake and Output Vital Signs (last 24 hours): Temp Pulse Resp BP Pulse Ox 98.0 F 106 H 20 135/76 92 L 03/24/17 15:42 03/24/17 15:42 03/24/17 15:42 03/24/17 15:42 03/24/17 15:42 Intake and Output: 03/24/17 03/24/17 06:59 18:59 Intake Total 1270 Output Total 400 600 Balance -400 670 - Medications Medications: Current Medications Acetaminophen (Tylenol 325mg Tab) 650 mg PO Q4H PRN PRN Reason: Fever >100.4 F Last Admin: 03/24/17 01:07 Dose: 650 mg Al Hydrox/Mg Hydrox/Simethicone (Maalox 30 Ml) 30 ml PO Q4H PRN PRN Reason: Heartburn Albuterol/Ipratropium (Duoneb 3 Mg/0.5 Mg (3 Ml) Ud) 3 ml INH RQ6 [facility] Last Admin: 03/24/17 13:43 Dose: 3 ml Allopurinol (Zyloprim) 100 mg PO DAILY [facility] Last Admin: 03/24/17 11:09 Dose: 100 mg Bismuth Subsalicylate (Pepto Bismol) 262 mg PO Q4 [facility] Last Admin: 03/24/17 12:40 Dose: Not Given Cholestyramine Resin (Prevalite) 4 gm PO 2100 [facility] Last Admin: 03/23/17 21:57 Dose: 4 gm Cholestyramine Resin (Prevalite) 4 gm PO 0900 [facility] Last Admin: 03/24/17 11:13 Dose: 4 gm Enalapril Maleate (Vasotec) 10 mg PO DAILY [facility] Last Admin: 03/24/17 13:45 Dose: Not Given Epoetin Kyle (Procrit) 10,000 unit IV TTS [facility] Stop: 03/30/17 10:01 Finasteride (Proscar) 5 mg PO DAILY [facility] Last Admin: 03/24/17 11:07 Dose: 5 mg Gemfibrozil (Lopid) 600 mg PO HS [facility] Last Admin: 03/23/17 21:57 Dose: 600 mg Heparin Sodium (Porcine) (Heparin) 1,000 units IVP [facility] Stop: 03/28/17 10:01 Heparin Sodium (Porcine) (Heparin) 3,300 units IVP [facility]TS [facility] Stop: 04/01/17 10:01 Hydralazine HCl (Apresoline) 25 mg PO Q8 [facility] Last Admin: 03/24/17 13:46 Dose: Not Given Hydrocortisone (Anusol-Hc) 25 mg RC BID [facility] Metronidazole (Flagyl) 500 mg in 100 mls @ 100 mls/hr IVPB Q8 [facility] Last Admin: 03/24/17 13:42 Dose: 100 mls/hr Piperacillin Sod/Tazobactam Sod (Zosyn 2.25 Gm Iv Premix) 2.25 gm in 50 mls @ 100 mls/hr IVPB Q8H [facility] Last Admin: 03/24/17 11:04 Dose: 100 mls/hr Heparin Sodium/Sodium Chloride (Heparin 47539 Units/250ml 1/2 Normal Saline) 25 ,000 units in 250 mls @ 15.725 mls/hr IV .[id number] PRN; Protocol; 18 UNITS/KG/HR PRN Reason: ADJUST RATE PER PROTOCOL Last Admin: 03/24/17 18:02 Dose: 18 units/kg/hr, 15.725 mls/hr Multivitamins (Hexavitamin) 1 tab PO DAILY [facility] Last Admin: 03/24/17 11:08 Dose: 1 tab Pantoprazole Sodium (Protonix Ec Tab) 40 mg PO DAILY [facility] Last Admin: 03/24/17 11:08 Dose: 40 mg Paricalcitol (Zemplar) 2 mcg IV TTS [facility] Stop: 03/30/17 10:01 Saccharomyces Boulardii (Florastor) 250 mg PO BID [facility] Last Admin: 03/24/17 17:37 Dose: 250 mg Tamsulosin HCl (Flomax) 0.4 mg PO BID [facility] Last Admin: 03/24/17 17:37 Dose: 0.4 mg Vancomycin HCl (Vancocin (Oral Or Rectal Use)) 250 mg PO Q6H [facility] Last Admin: 03/24/17 17:37 Dose: 250 mg - Labs Labs: 03/24/17 15:07 03/24/17 15:07 PT 12.8 SECONDS (9.7-12.2) H 03/24/17 16:14 INR 1.1 03/24/17 16:14 APTT 32 SECONDS (21-34) 03/24/17 16:14
--- NOTE | 2017-03-24 23:05 | PN ---
DATE: FOLLOWUP RENAL CONSULTATION LOCATION: The patient is located in room 557, bed A. REQUESTED BY: Yeison Cole MD. REASON FOR FOLLOWUP: End-stage renal disease, for continuation of hemodialysis. SUBJECTIVE: Mr. Cho is a 76 years old elderly male with a past medical history significant for longstanding hypertension, BPH, osteoarthritis, recurrent UTI, anemia, end-stage renal disease, who is on dialysis 3 times a week for the last few months, who was admitted with a chief complaints of diarrhea for 2 to 3 weeks and elevated WBC count. The patient was found to have a C. diff colitis and started on IV Flagyl and p.o. vancomycin. The patient is feeling better. The patient was complaining shortness of breath yesterday, underwent V/Q scan, which is positive for the intermediate probability and underwent CT angiogram to rule out PE yesterday. The patient is not in any distress. Complains of loose BM x4-5 today. No chest pain. No palpitation. No fever. No cough. No abdominal pain. No nausea or vomiting. PHYSICAL EXAMINATION: GENERAL: Mr. Cho is a 76 years old elderly male, moderately built, moderately nourished, no in any distress. VITAL SIGNS: His vital signs as follows; blood pressure 135/76, pulse 106, respirations 20, temperature 98, saturation 92%. Height 5 feet 8 inches. Weight is 192 pounds. HEENT: Pupils are normal and reactive to light and accommodation. Conjunctivae pink. Sclerae anicteric. Tongue is moist. Trachea is midline. LUNGS: Symmetric on both sides. Bilateral breath sounds present. Clear on auscultation. CARDIOVASCULAR SYSTEM: [place] at the fifth intercostal space, midclavicular line. S1 and S2 audible. No murmur or gallop. ABDOMEN: Normal in appearance, soft, tympanic. No guarding. No rigidity. No hepatosplenomegaly. CENTRAL NERVOUS SYSTEM: The patient is alert, awake, oriented x3. Nonfocal neuro examination. Cranial nerves II through XII grossly intact. Sensory and motor system is within normal limits. EXTREMITIES: No cyanosis. No clubbing. No edema. LABORATORY DATA: His current laboratory data includes as follows, WBC 9, hemoglobin 10.6, hematocrit is 32.8, platelets 289. Sodium 132, potassium 3.7, chloride 96, CO2 of 32, BUN 13, creatinine 3.0, glucose 124, calcium 7.8, total bili 0.3, AST 13, ALT 25, alkaline phosphatase 67, total protein 6.4, albumin is 2.6. Accu-Cheks 129 and 96. MEDICATIONS: His current medications include as follows; hydralazine 25 mg p.o. q. 8 hours, hydrocortisone 25 mg b.i.d. rectal and DuoNeb inhaler 3 mL q. 6 hours, Flagyl 500 mg IV q. 8 hours and Flomax 0.4 mg b.i.d., Florastor 250 mg p.o. b.i.d. and heparin 3300 units in the Perm-A-Cath post dialysis and also the patient is also started on IV heparin, multivitamin, Lopid and Maalox, Pepto-Bismol, cholestyramine, Procrit, Proscar, Protonix, Tylenol, vancomycin and enalapril, Zemplar, Zosyn and allopurinol. ASSESSMENT AND PLAN: In summary, Mr. Cho is about 76 years old elderly male with a history of hypertension, benign prostatic hypertrophy, arthritis, recurrent urinary tract infection, end-stage renal disease, who was admitted with severe diarrhea for 2 to 3 weeks and found to have a Clostridium difficile colitis. 1. End-stage renal disease. Continue hemodialysis 3 times a week, Monday, , Monday. 2. Hypertension. Blood pressure is stable. Continue hydralazine and enalapril. 3. Congestive heart failure. 4. Pneumonia. 5. Clostridium difficile colitis. Continue intravenous Flagyl and p.o. vancomycin. Continue Zosyn and follow up with Pulmonary for further management for possible pneumonia versus pulmonary embolism, on intravenous heparin. We will schedule for hemodialysis in the morning. Thank you for allowing me to participate in your patient's care. Repeat Clostridium difficile toxin. We will try to ultrafiltrate as much as the patient can tolerate in a.m. Emir Kirk MD
--- NOTE | 2017-03-24 23:13 | CP.PCM.PN ---
Subjective - Date & Time of Evaluation Date of Evaluation: 03/24/17 Time of Evaluation: 09:45 - Subjective Subjective: Pt is seen and examined, his Ct angio was done which shows pulmonary emboli, Heparin drip was started by pulmonary his breathing is improved Objective - Vital Signs/Intake and Output Vital Signs (last 24 hours): Temp Pulse Resp BP Pulse Ox 98.0 F 114 H 20 135/76 92 L 03/24/17 15:42 03/24/17 18:00 03/24/17 15:42 03/24/17 15:42 03/24/17 15:42 Intake and Output: 03/24/17 03/25/17 18:59 06:59 Intake Total 1270 Output Total 600 505 Balance 670 -505 - Medications Medications: Current Medications Acetaminophen (Tylenol 325mg Tab) 650 mg PO Q4H PRN PRN Reason: Fever >100.4 F Last Admin: 03/24/17 01:07 Dose: 650 mg Al Hydrox/Mg Hydrox/Simethicone (Maalox 30 Ml) 30 ml PO Q4H PRN PRN Reason: Heartburn Albuterol/Ipratropium (Duoneb 3 Mg/0.5 Mg (3 Ml) Ud) 3 ml INH RQ6 [facility] Last Admin: 03/24/17 19:19 Dose: 3 ml Allopurinol (Zyloprim) 100 mg PO DAILY [facility] Last Admin: 03/24/17 11:09 Dose: 100 mg Bismuth Subsalicylate (Pepto Bismol) 262 mg PO Q4 [facility] Last Admin: 03/24/17 19:38 Dose: Not Given Cholestyramine Resin (Prevalite) 4 gm PO 2100 [facility] Last Admin: 03/23/17 21:57 Dose: 4 gm Cholestyramine Resin (Prevalite) 4 gm PO 0900 [facility] Last Admin: 03/24/17 11:13 Dose: 4 gm Enalapril Maleate (Vasotec) 10 mg PO DAILY [facility] Last Admin: 03/24/17 13:45 Dose: Not Given Epoetin Kyle (Procrit) 10,000 unit IV TTS [facility] Stop: 03/30/17 10:01 Finasteride (Proscar) 5 mg PO DAILY [facility] Last Admin: 03/24/17 11:07 Dose: 5 mg Gemfibrozil (Lopid) 600 mg PO HS [facility] Last Admin: 03/24/17 22:35 Dose: 600 mg Heparin Sodium (Porcine) (Heparin) 1,000 units IVP [facility] Stop: 03/28/17 10:01 Heparin Sodium (Porcine) (Heparin) 3,300 units IVP [facility] Stop: 04/01/17 10:01 Hydralazine HCl (Apresoline) 25 mg PO Q8 [facility] Last Admin: 03/24/17 22:35 Dose: 25 mg Hydrocortisone (Anusol-Hc) 25 mg RC BID [facility] Metronidazole (Flagyl) 500 mg in 100 mls @ 100 mls/hr IVPB Q8 [facility] Last Admin: 03/24/17 22:35 Dose: 100 mls/hr Piperacillin Sod/Tazobactam Sod (Zosyn 2.25 Gm Iv Premix) 2.25 gm in 50 mls @ 100 mls/hr IVPB Q8H [facility] Last Admin: 03/24/17 19:38 Dose: 100 mls/hr Heparin Sodium/Sodium Chloride (Heparin 17775 Units/250ml 1/2 Normal Saline) 25 ,000 units in 250 mls @ 15.725 mls/hr IV .[id number] PRN; Protocol; 18 UNITS/KG/HR PRN Reason: ADJUST RATE PER PROTOCOL Last Admin: 03/24/17 18:02 Dose: 18 units/kg/hr, 15.725 mls/hr Multivitamins (Hexavitamin) 1 tab PO DAILY [facility] Last Admin: 03/24/17 11:08 Dose: 1 tab Pantoprazole Sodium (Protonix Ec Tab) 40 mg PO DAILY [facility] Last Admin: 03/24/17 11:08 Dose: 40 mg Paricalcitol (Zemplar) 2 mcg IV TTS [facility] Stop: 03/30/17 10:01 Saccharomyces Boulardii (Florastor) 250 mg PO BID [facility] Last Admin: 03/24/17 17:37 Dose: 250 mg Tamsulosin HCl (Flomax) 0.4 mg PO BID [facility] Last Admin: 03/24/17 17:37 Dose: 0.4 mg Vancomycin HCl (Vancocin (Oral Or Rectal Use)) 250 mg PO Q6H [facility] Last Admin: 03/24/17 17:37 Dose: 250 mg - Labs Labs: 03/24/17 15:07 03/24/17 15:07 PT 12.8 SECONDS (9.7-12.2) H 03/24/17 16:14 INR 1.1 03/24/17 16:14 APTT 32 SECONDS (21-34) 03/24/17 16:14 - Constitutional Appears: No Acute Distress - Head Exam Head Exam: ATRAUMATIC, NORMAL INSPECTION, NORMOCEPHALIC - Respiratory Exam Respiratory Exam: Clear to Ausculation Bilateral, NORMAL BREATHING PATTERN - Cardiovascular Exam Cardiovascular Exam: REGULAR RHYTHM, +S1, +S2. absent: Murmur - GI/Abdominal Exam GI & Abdominal Exam: Soft, Normal Bowel Sounds. absent: Tenderness Assessment and Plan (1) Abdominal tenderness, LLQ (left lower quadrant) Status: Acute (2) Acute diarrhea Status: Acute (3) C. difficile diarrhea Status: Acute (4) CKD (chronic kidney disease) Status: Acute (5) Complicated urinary tract infection Status: Acute (6) Shortness of breath Status: Acute (7) Urinary retention Status: Acute
[2017-03-25] MEDS: Piperacill/Tazo 2.25gm in Dex 2.25 GM/50 ML BAG IVPB SCH ×3 (04:00→18:18)
[2017-03-25] MEDS: Vancomycin 125 MG/5 ML SOLN (ORAL/RECTAL) PO SCH ×3 (06:27→18:18)
[2017-03-25] MEDS: metroNIDAZOLE IV 500 mg/100 ml 500 MG/100 ML BAG IVPB SCH ×3 (06:27→21:47)
[2017-03-25] MEDS: Bismuth Subsalicylate 262 mg Chew Tab PO SCH ×5 (06:28→20:52)
[2017-03-25] MEDS: Albuterol-Ipratrop 3 mg / 0.5 (3 ml) UD INH SCH ×2 (08:04→13:32)
[2017-03-25] MEDS: Pantoprazole 40 mg EC Tab PO SCH (09:20)
[2017-03-25] MEDS: Multiple Vitamins Tab PO SCH (09:20)
[2017-03-25] MEDS: Saccharomyces Boulardi 250 mg Cap PO SCH ×2 (09:21→18:18)
[2017-03-25] MEDS: Cholestyramine 4 gm/5.5 gm UD Packet PO SCH ×2 (09:22→21:48)
[2017-03-25] MEDS ORDERED: Epoetin Alfa Dialysis 40000 UNIT/ml Inj IV SCH (10:00)
[2017-03-25] MEDS ORDERED: Paricalcitol 2 mcg/ml Inj IV SCH (10:00)
[2017-03-25] MEDS ORDERED: Epoetin Alfa 10,000 unit/ml Dialysis IV SCH (10:00)
[2017-03-25 10:06] LABS: INR 1.2
[2017-03-25] MEDS: Paricalcitol 2 mcg/ml Inj IV SCH (10:25)
[2017-03-25] MEDS ORDERED: Dextrose 50% SYRINGE Inj (50 ml) IV STA (10:38)
[2017-03-25] MEDS ORDERED: Dextrose 50% VIAL Inj (50 ml) IV ONE (10:38)
--- NOTE | 2017-03-25 10:47 | CP.PCM.PN ---
Subjective - Date & Time of Evaluation Date of Evaluation: 03/25/17 Time of Evaluation: 10:30 - Subjective Subjective: the patient seen and examined during hemodialysis Denies shortness of breath Started on heparin drip for pulmonary embolism Monitor H&H and PTT Objective - Vital Signs/Intake and Output Vital Signs (last 24 hours): Temp Pulse Resp BP Pulse Ox 98 F 94 H 20 130/72 97 03/25/17 08:04 03/25/17 08:04 03/25/17 08:04 03/25/17 08:04 03/25/17 08:04 Intake and Output: 03/25/17 03/25/17 06:59 18:59 Output Total 705 Balance -705 - Medications Medications: Current Medications Acetaminophen (Tylenol 325mg Tab) 650 mg PO Q4H PRN PRN Reason: Fever >100.4 F Last Admin: 03/24/17 01:07 Dose: 650 mg Al Hydrox/Mg Hydrox/Simethicone (Maalox 30 Ml) 30 ml PO Q4H PRN PRN Reason: Heartburn Albuterol/Ipratropium (Duoneb 3 Mg/0.5 Mg (3 Ml) Ud) 3 ml INH RQ6 [facility] Last Admin: 03/25/17 08:04 Dose: 3 ml Allopurinol (Zyloprim) 100 mg PO DAILY [facility] Last Admin: 03/25/17 09:20 Dose: 100 mg Bismuth Subsalicylate (Pepto Bismol) 262 mg PO Q4 [facility] Last Admin: 03/25/17 09:22 Dose: 262 mg Cholestyramine Resin (Prevalite) 4 gm PO 2100 [facility] Last Admin: 03/23/17 21:57 Dose: 4 gm Cholestyramine Resin (Prevalite) 4 gm PO 0900 [facility] Last Admin: 03/25/17 09:22 Dose: 4 gm Enalapril Maleate (Vasotec) 10 mg PO DAILY [facility] Last Admin: 03/24/17 13:45 Dose: Not Given Epoetin Kyle (Procrit) 10,000 unit IV TTS [facility] Stop: 03/30/17 10:01 Last Admin: 03/25/17 10:24 Dose: 10,000 unit Finasteride (Proscar) 5 mg PO DAILY [facility] Last Admin: 03/25/17 09:20 Dose: 5 mg Gemfibrozil (Lopid) 600 mg PO HS [facility] Last Admin: 03/24/17 22:35 Dose: 600 mg Heparin Sodium (Porcine) (Heparin) 1,000 units IVP TTS [facility] Stop: 03/28/17 10:01 Last Admin: 03/25/17 10:23 Dose: 1,000 units Heparin Sodium (Porcine) (Heparin) 3,300 units IVP TTS [facility] Stop: 04/01/17 10:01 Last Admin: 03/25/17 10:23 Dose: 3,300 units Hydralazine HCl (Apresoline) 25 mg PO Q8 [facility] Last Admin: 03/25/17 06:35 Dose: 25 mg Hydrocortisone (Anusol-Hc) 25 mg RC BID [facility] Metronidazole (Flagyl) 500 mg in 100 mls @ 100 mls/hr IVPB Q8 [facility] Last Admin: 03/25/17 06:27 Dose: 100 mls/hr Piperacillin Sod/Tazobactam Sod (Zosyn 2.25 Gm Iv Premix) 2.25 gm in 50 mls @ 100 mls/hr IVPB Q8H [facility] Last Admin: 03/25/17 04:00 Dose: 100 mls/hr Heparin Sodium/Sodium Chloride (Heparin 86520 Units/250ml 1/2 Normal Saline) 25 ,000 units in 250 mls @ 13.104 mls/hr IV .Q19H5M PRN; Protocol; 15 UNITS/KG/HR PRN Reason: ADJUST RATE PER PROTOCOL Multivitamins (Hexavitamin) 1 tab PO DAILY [facility] Last Admin: 03/25/17 09:20 Dose: 1 tab Pantoprazole Sodium (Protonix Ec Tab) 40 mg PO DAILY [facility] Last Admin: 03/25/17 09:20 Dose: 40 mg Paricalcitol (Zemplar) 2 mcg IV TTS [facility] Stop: 03/30/17 10:01 Saccharomyces Boulardii (Florastor) 250 mg PO BID [facility] Last Admin: 03/25/17 09:21 Dose: 250 mg Tamsulosin HCl (Flomax) 0.4 mg PO BID [facility] Last Admin: 03/25/17 09:21 Dose: Not Given Vancomycin HCl (Vancocin (Oral Or Rectal Use)) 250 mg PO Q6H [facility] Last Admin: 03/25/17 06:27 Dose: 250 mg Warfarin Sodium (Coumadin) 5 mg PO 1800 [facility] Stop: 03/25/17 18:01 - Labs Labs: 03/24/17 15:07 03/24/17 15:07 PT 13.8 SECONDS (9.7-12.2) H 03/25/17 08:20 INR 1.2 03/25/17 08:20 APTT 69 SECONDS (21-34) H D 03/25/17 08:20 Assessment and Plan (1) Shortness of breath Status: Acute (2) C. difficile diarrhea Status: Acute (3) CKD (chronic kidney disease) Status: Acute
--- NOTE | 2017-03-25 11:06 | CP.PCM.PN ---
Subjective - Date & Time of Evaluation Date of Evaluation: 03/25/17 Time of Evaluation: 11:06 - Subjective Subjective: pt is seen and examined, follow up consult is dictated #[id number] see in hd , uf 3 lit Objective - Vital Signs/Intake and Output Vital Signs (last 24 hours): Temp Pulse Resp BP Pulse Ox 98 F 94 H 20 130/72 97 03/25/17 08:04 03/25/17 08:04 03/25/17 08:04 03/25/17 08:04 03/25/17 08:04 Intake and Output: 03/25/17 03/25/17 06:59 18:59 Output Total 705 Balance -705 - Medications Medications: Current Medications Acetaminophen (Tylenol 325mg Tab) 650 mg PO Q4H PRN PRN Reason: Fever >100.4 F Last Admin: 03/24/17 01:07 Dose: 650 mg Al Hydrox/Mg Hydrox/Simethicone (Maalox 30 Ml) 30 ml PO Q4H PRN PRN Reason: Heartburn Albuterol/Ipratropium (Duoneb 3 Mg/0.5 Mg (3 Ml) Ud) 3 ml INH RQ6 [facility] Last Admin: 03/25/17 08:04 Dose: 3 ml Allopurinol (Zyloprim) 100 mg PO DAILY [facility] Last Admin: 03/25/17 09:20 Dose: 100 mg Bismuth Subsalicylate (Pepto Bismol) 262 mg PO Q4 [facility] Last Admin: 03/25/17 09:22 Dose: 262 mg Cholestyramine Resin (Prevalite) 4 gm PO 2100 [facility] Last Admin: 03/23/17 21:57 Dose: 4 gm Cholestyramine Resin (Prevalite) 4 gm PO 0900 [facility] Last Admin: 03/25/17 09:22 Dose: 4 gm Enalapril Maleate (Vasotec) 10 mg PO DAILY [facility] Last Admin: 03/24/17 13:45 Dose: Not Given Epoetin Kyle (Procrit) 10,000 unit IV TTS [facility] Stop: 03/30/17 10:01 Last Admin: 03/25/17 10:24 Dose: 10,000 unit Finasteride (Proscar) 5 mg PO DAILY [facility] Last Admin: 03/25/17 09:20 Dose: 5 mg Gemfibrozil (Lopid) 600 mg PO HS [facility] Last Admin: 03/24/17 22:35 Dose: 600 mg Heparin Sodium (Porcine) (Heparin) 1,000 units IVP TTS [facility] Stop: 03/28/17 10:01 Last Admin: 03/25/17 10:23 Dose: 1,000 units Heparin Sodium (Porcine) (Heparin) 3,300 units IVP TTS [facility] Stop: 04/01/17 10:01 Last Admin: 03/25/17 10:23 Dose: 3,300 units Hydralazine HCl (Apresoline) 25 mg PO Q8 [facility] Last Admin: 03/25/17 06:35 Dose: 25 mg Hydrocortisone (Anusol-Hc) 25 mg RC BID [facility] Metronidazole (Flagyl) 500 mg in 100 mls @ 100 mls/hr IVPB Q8 [facility] Last Admin: 03/25/17 06:27 Dose: 100 mls/hr Piperacillin Sod/Tazobactam Sod (Zosyn 2.25 Gm Iv Premix) 2.25 gm in 50 mls @ 100 mls/hr IVPB Q8H [facility] Last Admin: 03/25/17 04:00 Dose: 100 mls/hr Heparin Sodium/Sodium Chloride (Heparin 45997 Units/250ml 1/2 Normal Saline) 25 ,000 units in 250 mls @ 13.104 mls/hr IV .Q19H5M PRN; Protocol; 15 UNITS/KG/HR PRN Reason: ADJUST RATE PER PROTOCOL Multivitamins (Hexavitamin) 1 tab PO DAILY [facility] Last Admin: 03/25/17 09:20 Dose: 1 tab Pantoprazole Sodium (Protonix Ec Tab) 40 mg PO DAILY [facility] Last Admin: 03/25/17 09:20 Dose: 40 mg Paricalcitol (Zemplar) 2 mcg IV TTS [facility] Stop: 03/30/17 10:01 Saccharomyces Boulardii (Florastor) 250 mg PO BID [facility] Last Admin: 03/25/17 09:21 Dose: 250 mg Tamsulosin HCl (Flomax) 0.4 mg PO BID [facility] Last Admin: 03/25/17 09:21 Dose: Not Given Vancomycin HCl (Vancocin (Oral Or Rectal Use)) 250 mg PO Q6H [facility] Last Admin: 03/25/17 06:27 Dose: 250 mg Warfarin Sodium (Coumadin) 5 mg PO 1800 [facility] Stop: 03/25/17 18:01 - Labs Labs: 03/24/17 15:07 03/24/17 15:07 PT 13.8 SECONDS (9.7-12.2) H 03/25/17 08:20 INR 1.2 03/25/17 08:20 APTT 69 SECONDS (21-34) H D 03/25/17 08:20
[2017-03-25] MEDS: Heparin25000 units/250ml 1/2NS 25,000 UNITS/250 ML BAG IV PRN (12:33)
--- NOTE | 2017-03-25 21:48 | PN ---
DATE: FOLLOWUP RENAL CONSULTATION LOCATION: The patient is located in room 557, bed A. REQUESTED BY: Yeison Cole MD. REASON FOR FOLLOWUP: End-stage renal disease, continuation of the hemodialysis. SUBJECTIVE: Mr. Cho is a 76 years elderly male with past medical history significant for longstanding hypertension, BPH, recurrent UTI, anemia, end-stage renal disease, on hemodialysis for the last 3-4 months, was admitted with the chief complaints of loose, watery diarrhea and the patient was also found to have elevated WBC count and stool for C. diff toxin was positive. The patient is being treated for C. diff colitis with IV Flagyl and p.o. vancomycin. The patient was complaining of shortness of breath 2 days ago and the patient underwent a VQ and VQ scan is intermediate probability and subsequently the patient underwent a CT angiogram consistent with pulmonary embolism as per the director software, Dr. Paul Valerio. The patient is on IV anticoagulation, IV heparin and started on Coumadin today. The patient is feeling better, not in any distress. The patient was seen and examined during hemodialysis. Ultrafiltration goal is about 3 L. Denies any chest pain or palpitation. Denies any fever or cough. No abdominal pain. No nausea, vomiting, diarrhea today. PHYSICAL EXAMINATION: VITAL SIGNS: As follows; blood pressure 142/85 and pulse about 98 and respirations about 20 and temperature is 98 and height is 5 feet 8 inches. Weight is 192 pounds. GENERAL: Mr. Cho is a 76 years elderly obese male with a history of hypertension, BPH, recurrent UTI, arthritis, anemia, end-stage renal disease, moderately built, moderately nourished, not in any distress. HEENT: Pupils are normal and reactive to light and accommodation. Conjunctivae pink. Sclerae anicteric. Tongue is moist. Trachea is midline. No thyroid enlargement. LUNGS: Symmetric on both sides. Bilateral breath sounds present. Basal crackles present. CARDIOVASCULAR SYSTEM: [place] at the fifth intercostal space, midclavicular line. S1 and S2 audible. No murmur or gallop. ABDOMEN: Protuberant, soft, tympanic. No guarding. No rigidity. No hepatosplenomegaly. CENTRAL NERVOUS SYSTEM: The patient is alert, awake, oriented x3. Sensory and motor system is grossly within normal limits. EXTREMITIES: No cyanosis. No clubbing. No edema. MEDICATIONS: His current medications include as follows, Anusol HC 25 mg rectal b.i.d., hydralazine 25 mg p.o. q.8 hours and Flagyl 500 mg IV q.8 hours., Flomax 0.4 mg p.o. b.i.d. and Florastor 250 mg p.o. b.i.d., heparin 1000 units IV 3 times a week during dialysis, heparin 3300 units IV push in the PermCath post dialysis and the patient is also on IV heparin drip at 13 mL/hour and multivitamins and Lopid 600 mg p.o. at bedtime, Pepto-Bismol and cholestyramine, Procrit 10,000 units three times a week and Proscar 40 mg p.o. daily, Tylenol and vancomycin 250 mg p.o. q.6 hours, Vasotec 10 mg p.o. daily and Zemplar 2 mcg three times a week, Zosyn 2.25 g and allopurinol 100 mg p.o. daily. LABORATORY DATA: Include as follows as of 03/25/2017, PT 13.8, PTT 69. Accu-Cheks 72, 108. ASSESSMENT AND PLAN: In summary, Mr. Cho is about 76 years old elderly male with hypertension, benign prostatic hypertrophy, recurrent urinary tract infection, anemia, end-stage renal disease, who was admitted with Clostridium difficile colitis and shortness of breath now. CT angiogram consistent with pulmonary embolism as per Dr. Paul Valerio, on intravenous anticoagulation. 1. End-stage renal disease. Continue hemodialysis three times a week, Monday, , Monday. 2. Pulmonary embolism. Continue anticoagulation as per Pulmonary recommendations. 3. Hypertension. Blood pressure is stable. Continue his current medications, hydralazine and enalapril. 4. Anemia. Hemoglobin and hematocrit are stable. Continue Procrit. 5. Congestive heart failure. 6. Pneumonia. Continue Zosyn 2.25 g intravenous q.8 hours and restrict the fluids to 1500 mL per day and we will try to ultrafiltrate as much as the patient can tolerate. Our goal is about 3 L during dialysis today and able to tolerate 3 L in ultrafiltration during dialysis today and his post dialysis vital signs are stable 156/90. Thank you for allowing me to participate in your patient's care. Continue the rest of his medications. Emir Kirk MD
[2017-03-26] MEDS: Vancomycin 125 MG/5 ML SOLN (ORAL/RECTAL) PO SCH ×4 (00:11→17:33)
[2017-03-26] MEDS: Bismuth Subsalicylate 262 mg Chew Tab PO SCH ×6 (00:25→19:57)
[2017-03-26] MEDS: Piperacill/Tazo 2.25gm in Dex 2.25 GM/50 ML BAG IVPB SCH ×2 (03:23→12:50)
[2017-03-26] MEDS: metroNIDAZOLE IV 500 mg/100 ml 500 MG/100 ML BAG IVPB SCH ×3 (06:28→22:39)
[2017-03-26 08:14] LABS: HEMATOCRIT 29.8 % (35.0-51.0); MEAN CELL VOLUME 91.7 fL (80.0-94.0); MEAN CORPUSCULAR HEMOGLOBIN 29.7 pg (27.0-31.0); MEAN CORPUSCULAR HGB CONC 32.4 g/dL (33.0-37.0); MEAN PLATELET VOLUME 6.9 fL (7.2-11.7); RED CELL DISTRIBUTION WIDTH 20.1 % (11.5-14.5); WHITE BLOOD COUNT 7.4 K/uL (4.8-10.8)
[2017-03-26 08:15] LABS: INR 1.3
[2017-03-26 08:34] LABS: CALCIUM 7.6 mg/dl (8.6-10.4); POTASSIUM 3.6 mmol/L (3.6-5.2)
[2017-03-26] MEDS: Cholestyramine 4 gm/5.5 gm UD Packet PO SCH ×2 (09:01→20:53)
[2017-03-26] MEDS: Saccharomyces Boulardi 250 mg Cap PO SCH ×2 (09:17→17:32)
[2017-03-26] MEDS: Multiple Vitamins Tab PO SCH (09:17)
[2017-03-26] MEDS: Pantoprazole 40 mg EC Tab PO SCH (09:17)
[2017-03-26] MEDS: Heparin25000 units/250ml 1/2NS 25,000 UNITS/250 ML BAG IV PRN (10:05)
--- NOTE | 2017-03-26 11:12 | CP.PCM.PN ---
Subjective - Date & Time of Evaluation Date of Evaluation: 03/25/17 Time of Evaluation: 20:10 - Subjective Subjective: The patient seen and examined during hemodialysis Denies shortness of breath Started on heparin drip for pulmonary embolism Monitor H&H and PTT Objective - Vital Signs/Intake and Output Vital Signs (last 24 hours): Temp Pulse Resp BP Pulse Ox 98.0 F 100 H 18 129/71 96 03/26/17 08:30 03/26/17 08:30 03/26/17 08:30 03/26/17 09:19 03/26/17 08:30 Intake and Output: 03/26/17 03/26/17 06:59 18:59 Intake Total 250 Output Total 500 Balance -500 250 - Medications Medications: Current Medications Acetaminophen (Tylenol 325mg Tab) 650 mg PO Q4H PRN PRN Reason: Fever >100.4 F Last Admin: 03/24/17 01:07 Dose: 650 mg Al Hydrox/Mg Hydrox/Simethicone (Maalox 30 Ml) 30 ml PO Q4H PRN PRN Reason: Heartburn Allopurinol (Zyloprim) 100 mg PO DAILY [facility] Last Admin: 03/26/17 09:17 Dose: 100 mg Bismuth Subsalicylate (Pepto Bismol) 262 mg PO Q4 [facility] Last Admin: 03/26/17 09:01 Dose: 262 mg Cholestyramine Resin (Prevalite) 4 gm PO 2100 [facility] Last Admin: 03/25/17 21:48 Dose: 4 gm Cholestyramine Resin (Prevalite) 4 gm PO 0900 [facility] Last Admin: 03/26/17 09:01 Dose: 4 gm Enalapril Maleate (Vasotec) 10 mg PO DAILY [facility] Last Admin: 03/26/17 09:19 Dose: Not Given Epoetin Kyle (Procrit) 10,000 unit IV TTS [facility] Stop: 03/30/17 10:01 Last Admin: 03/25/17 10:24 Dose: 10,000 unit Finasteride (Proscar) 5 mg PO DAILY [facility] Last Admin: 03/26/17 09:17 Dose: 5 mg Gemfibrozil (Lopid) 600 mg PO HS [facility] Last Admin: 03/24/17 22:35 Dose: 600 mg Heparin Sodium (Porcine) (Heparin) 1,000 units IVP TTS [facility] Stop: 03/28/17 10:01 Last Admin: 03/25/17 10:23 Dose: 1,000 units Heparin Sodium (Porcine) (Heparin) 3,300 units IVP TTS [facility] Stop: 04/01/17 10:01 Last Admin: 03/25/17 10:23 Dose: 3,300 units Hydralazine HCl (Apresoline) 25 mg PO Q8 [facility] Last Admin: 03/26/17 06:28 Dose: 25 mg Hydrocortisone (Anusol-Hc) 25 mg RC BID [facility] Last Admin: 03/26/17 09:07 Dose: Not Given Metronidazole (Flagyl) 500 mg in 100 mls @ 100 mls/hr IVPB Q8 [facility] Last Admin: 03/26/17 06:28 Dose: 100 mls/hr Heparin Sodium/Sodium Chloride (Heparin 47715 Units/250ml 1/2 Normal Saline) 25 ,000 units in 250 mls @ 13.104 mls/hr IV .Q19H5M PRN; Protocol; 15 UNITS/KG/HR PRN Reason: ADJUST RATE PER PROTOCOL Last Admin: 03/26/17 10:05 Dose: 12 units/kg/hr, 10.483 mls/hr Multivitamins (Hexavitamin) 1 tab PO DAILY [facility] Last Admin: 03/26/17 09:17 Dose: 1 tab Pantoprazole Sodium (Protonix Ec Tab) 40 mg PO DAILY [facility] Last Admin: 03/26/17 09:17 Dose: 40 mg Paricalcitol (Zemplar) 2 mcg IV TTS [facility] Stop: 03/30/17 10:01 Saccharomyces Boulardii (Florastor) 250 mg PO BID [facility] Last Admin: 03/26/17 09:17 Dose: 250 mg Tamsulosin HCl (Flomax) 0.4 mg PO BID [facility] Last Admin: 03/26/17 09:07 Dose: Not Given Vancomycin HCl (Vancocin (Oral Or Rectal Use)) 250 mg PO Q6H [facility] Last Admin: 03/26/17 06:28 Dose: 250 mg - Labs Labs: 03/26/17 07:57 03/26/17 07:57 PT 14.9 SECONDS (9.7-12.2) H 03/26/17 07:57 INR 1.3 03/26/17 07:57 APTT 102 SECONDS (21-34) H* D 03/26/17 07:57 - Constitutional Appears: No Acute Distress - Head Exam Head Exam: ATRAUMATIC, NORMAL INSPECTION, NORMOCEPHALIC - Eye Exam Eye Exam: EOMI, Normal appearance, PERRL Pupil Exam: NORMAL ACCOMODATION, PERRL - Respiratory Exam Respiratory Exam: Clear to Ausculation Bilateral, NORMAL BREATHING PATTERN - Cardiovascular Exam Cardiovascular Exam: REGULAR RHYTHM, +S1, +S2. absent: Murmur - GI/Abdominal Exam GI & Abdominal Exam: Soft, Normal Bowel Sounds. absent: Tenderness - Neurological Exam Neurological Exam: Alert, Awake, CN II-XII Intact, Normal Gait, Oriented x3 Assessment and Plan (1) Abdominal tenderness, LLQ (left lower quadrant) Status: Acute (2) Acute diarrhea Status: Acute (3) C. difficile diarrhea Status: Acute (4) CKD (chronic kidney disease) Status: Acute (5) Complicated urinary tract infection Status: Acute (6) Shortness of breath Status: Acute (7) Urinary retention Status: Acute
--- NOTE | 2017-03-26 11:12 | CP.PCM.PN ---
Subjective - Date & Time of Evaluation Date of Evaluation: 03/26/17 Time of Evaluation: 19:00 - Subjective Subjective: Pt seen and evaluated, is more alert is less short of breath, no fever Objective - Vital Signs/Intake and Output Vital Signs (last 24 hours): Temp Pulse Resp BP Pulse Ox 98.0 F 100 H 18 129/71 96 03/26/17 08:30 03/26/17 08:30 03/26/17 08:30 03/26/17 09:19 03/26/17 08:30 Intake and Output: 03/26/17 03/26/17 06:59 18:59 Intake Total 250 Output Total 500 Balance -500 250 - Medications Medications: Current Medications Acetaminophen (Tylenol 325mg Tab) 650 mg PO Q4H PRN PRN Reason: Fever >100.4 F Last Admin: 03/24/17 01:07 Dose: 650 mg Al Hydrox/Mg Hydrox/Simethicone (Maalox 30 Ml) 30 ml PO Q4H PRN PRN Reason: Heartburn Allopurinol (Zyloprim) 100 mg PO DAILY [facility] Last Admin: 03/26/17 09:17 Dose: 100 mg Bismuth Subsalicylate (Pepto Bismol) 262 mg PO Q4 [facility] Last Admin: 03/26/17 09:01 Dose: 262 mg Cholestyramine Resin (Prevalite) 4 gm PO 2100 [facility] Last Admin: 03/25/17 21:48 Dose: 4 gm Cholestyramine Resin (Prevalite) 4 gm PO 0900 [facility] Last Admin: 03/26/17 09:01 Dose: 4 gm Enalapril Maleate (Vasotec) 10 mg PO DAILY [facility] Last Admin: 03/26/17 09:19 Dose: Not Given Epoetin Kyle (Procrit) 10,000 unit IV TTS [facility] Stop: 03/30/17 10:01 Last Admin: 03/25/17 10:24 Dose: 10,000 unit Finasteride (Proscar) 5 mg PO DAILY [facility] Last Admin: 03/26/17 09:17 Dose: 5 mg Gemfibrozil (Lopid) 600 mg PO HS [facility] Last Admin: 03/24/17 22:35 Dose: 600 mg Heparin Sodium (Porcine) (Heparin) 1,000 units IVP TTS [facility] Stop: 03/28/17 10:01 Last Admin: 03/25/17 10:23 Dose: 1,000 units Heparin Sodium (Porcine) (Heparin) 3,300 units IVP TTS [facility] Stop: 04/01/17 10:01 Last Admin: 03/25/17 10:23 Dose: 3,300 units Hydralazine HCl (Apresoline) 25 mg PO Q8 [facility] Last Admin: 03/26/17 06:28 Dose: 25 mg Hydrocortisone (Anusol-Hc) 25 mg RC BID [facility] Last Admin: 03/26/17 09:07 Dose: Not Given Metronidazole (Flagyl) 500 mg in 100 mls @ 100 mls/hr IVPB Q8 [facility] Last Admin: 03/26/17 06:28 Dose: 100 mls/hr Heparin Sodium/Sodium Chloride (Heparin 17212 Units/250ml 1/2 Normal Saline) 25 ,000 units in 250 mls @ 13.104 mls/hr IV .Q19H5M PRN; Protocol; 15 UNITS/KG/HR PRN Reason: ADJUST RATE PER PROTOCOL Last Admin: 03/26/17 10:05 Dose: 12 units/kg/hr, 10.483 mls/hr Multivitamins (Hexavitamin) 1 tab PO DAILY [facility] Last Admin: 03/26/17 09:17 Dose: 1 tab Pantoprazole Sodium (Protonix Ec Tab) 40 mg PO DAILY [facility] Last Admin: 03/26/17 09:17 Dose: 40 mg Paricalcitol (Zemplar) 2 mcg IV TTS [facility] Stop: 03/30/17 10:01 Saccharomyces Boulardii (Florastor) 250 mg PO BID [facility] Last Admin: 03/26/17 09:17 Dose: 250 mg Tamsulosin HCl (Flomax) 0.4 mg PO BID [facility] Last Admin: 03/26/17 09:07 Dose: Not Given Vancomycin HCl (Vancocin (Oral Or Rectal Use)) 250 mg PO Q6H [facility] Last Admin: 03/26/17 06:28 Dose: 250 mg - Labs Labs: 03/26/17 07:57 03/26/17 07:57 PT 14.9 SECONDS (9.7-12.2) H 03/26/17 07:57 INR 1.3 03/26/17 07:57 APTT 102 SECONDS (21-34) H* D 03/26/17 07:57 - Constitutional Appears: No Acute Distress - Head Exam Head Exam: ATRAUMATIC, NORMAL INSPECTION, NORMOCEPHALIC - Eye Exam Eye Exam: EOMI, Normal appearance, PERRL Pupil Exam: NORMAL ACCOMODATION, PERRL - Respiratory Exam Respiratory Exam: Decreased Breath Sounds, Rales, Rhonchi - Cardiovascular Exam Cardiovascular Exam: REGULAR RHYTHM, +S1, +S2. absent: Murmur - GI/Abdominal Exam GI & Abdominal Exam: Soft, Normal Bowel Sounds. absent: Tenderness Assessment and Plan (1) Abdominal tenderness, LLQ (left lower quadrant) Status: Acute (2) Acute diarrhea Status: Acute (3) C. difficile diarrhea Status: Acute (4) CKD (chronic kidney disease) Status: Acute (5) Complicated urinary tract infection Status: Acute (6) Shortness of breath Status: Acute (7) Urinary retention Status: Acute - Assessment and Plan (Free Text) Plan: on coumadin, heparin INR target 2-3
--- NOTE | 2017-03-26 14:04 | CP.PCM.PN ---
Subjective - Date & Time of Evaluation Date of Evaluation: 03/26/17 Time of Evaluation: 14:04 - Subjective Subjective: pt is seen and examined, follow up consult is dictated #[id number] Objective - Vital Signs/Intake and Output Vital Signs (last 24 hours): Temp Pulse Resp BP Pulse Ox 98.0 F 100 H 18 129/71 96 03/26/17 08:30 03/26/17 08:30 03/26/17 08:30 03/26/17 09:19 03/26/17 08:30 Intake and Output: 03/26/17 03/26/17 06:59 18:59 Intake Total 250 Output Total 500 Balance -500 250 - Medications Medications: Current Medications Acetaminophen (Tylenol 325mg Tab) 650 mg PO Q4H PRN PRN Reason: Fever >100.4 F Last Admin: 03/24/17 01:07 Dose: 650 mg Al Hydrox/Mg Hydrox/Simethicone (Maalox 30 Ml) 30 ml PO Q4H PRN PRN Reason: Heartburn Allopurinol (Zyloprim) 100 mg PO DAILY [facility] Last Admin: 03/26/17 09:17 Dose: 100 mg Bismuth Subsalicylate (Pepto Bismol) 262 mg PO Q4 [facility] Last Admin: 03/26/17 13:06 Dose: Not Given Cholestyramine Resin (Prevalite) 4 gm PO 2100 [facility] Last Admin: 03/25/17 21:48 Dose: 4 gm Cholestyramine Resin (Prevalite) 4 gm PO 0900 [facility] Last Admin: 03/26/17 09:01 Dose: 4 gm Enalapril Maleate (Vasotec) 10 mg PO DAILY [facility] Last Admin: 03/26/17 09:19 Dose: Not Given Epoetin Kyle (Procrit) 10,000 unit IV TTS [facility] Stop: 03/30/17 10:01 Last Admin: 03/25/17 10:24 Dose: 10,000 unit Finasteride (Proscar) 5 mg PO DAILY [facility] Last Admin: 03/26/17 09:17 Dose: 5 mg Gemfibrozil (Lopid) 600 mg PO HS [facility] Last Admin: 03/24/17 22:35 Dose: 600 mg Heparin Sodium (Porcine) (Heparin) 1,000 units IVP TTS [facility] Stop: 03/28/17 10:01 Last Admin: 03/25/17 10:23 Dose: 1,000 units Heparin Sodium (Porcine) (Heparin) 3,300 units IVP TTS [facility] Stop: 04/01/17 10:01 Last Admin: 03/25/17 10:23 Dose: 3,300 units Hydralazine HCl (Apresoline) 25 mg PO Q8 [facility] Last Admin: 03/26/17 06:28 Dose: 25 mg Hydrocortisone (Anusol-Hc) 25 mg RC BID [facility] Last Admin: 03/26/17 09:07 Dose: Not Given Metronidazole (Flagyl) 500 mg in 100 mls @ 100 mls/hr IVPB Q8 [facility] Last Admin: 03/26/17 06:28 Dose: 100 mls/hr Heparin Sodium/Sodium Chloride (Heparin 11680 Units/250ml 1/2 Normal Saline) 25 ,000 units in 250 mls @ 13.104 mls/hr IV .Q19H5M PRN; Protocol; 15 UNITS/KG/HR PRN Reason: ADJUST RATE PER PROTOCOL Last Admin: 03/26/17 10:05 Dose: 12 units/kg/hr, 10.483 mls/hr Multivitamins (Hexavitamin) 1 tab PO DAILY [facility] Last Admin: 03/26/17 09:17 Dose: 1 tab Pantoprazole Sodium (Protonix Ec Tab) 40 mg PO DAILY [facility] Last Admin: 03/26/17 09:17 Dose: 40 mg Paricalcitol (Zemplar) 2 mcg IV TTS [facility] Stop: 03/30/17 10:01 Saccharomyces Boulardii (Florastor) 250 mg PO BID [facility] Last Admin: 03/26/17 09:17 Dose: 250 mg Tamsulosin HCl (Flomax) 0.4 mg PO BID [facility] Last Admin: 03/26/17 09:07 Dose: Not Given Vancomycin HCl (Vancocin (Oral Or Rectal Use)) 250 mg PO Q6H [facility] Last Admin: 03/26/17 12:52 Dose: 250 mg - Labs Labs: 03/26/17 07:57 03/26/17 07:57 PT 14.9 SECONDS (9.7-12.2) H 03/26/17 07:57 INR 1.3 03/26/17 07:57 APTT 60 SECONDS (21-34) H D 03/26/17 13:45
--- NOTE | 2017-03-26 15:25 | CP.PCM.PN ---
Subjective - Date & Time of Evaluation Date of Evaluation: 03/26/17 Time of Evaluation: 15:23 - Subjective Subjective: feels ok.no cp,sob.now on heparin. Objective - Vital Signs/Intake and Output Vital Signs (last 24 hours): Temp Pulse Resp BP Pulse Ox 98.0 F 100 H 18 129/71 96 03/26/17 08:30 03/26/17 08:30 03/26/17 08:30 03/26/17 09:19 03/26/17 08:30 Intake and Output: 03/26/17 03/26/17 06:59 18:59 Intake Total 250 Output Total 500 Balance -500 250 - Medications Medications: Current Medications Acetaminophen (Tylenol 325mg Tab) 650 mg PO Q4H PRN PRN Reason: Fever >100.4 F Last Admin: 03/24/17 01:07 Dose: 650 mg Al Hydrox/Mg Hydrox/Simethicone (Maalox 30 Ml) 30 ml PO Q4H PRN PRN Reason: Heartburn Allopurinol (Zyloprim) 100 mg PO DAILY [facility] Last Admin: 03/26/17 09:17 Dose: 100 mg Bismuth Subsalicylate (Pepto Bismol) 262 mg PO Q4 [facility] Last Admin: 03/26/17 13:06 Dose: Not Given Cholestyramine Resin (Prevalite) 4 gm PO 2100 [facility] Last Admin: 03/25/17 21:48 Dose: 4 gm Cholestyramine Resin (Prevalite) 4 gm PO 0900 [facility] Last Admin: 03/26/17 09:01 Dose: 4 gm Enalapril Maleate (Vasotec) 10 mg PO DAILY [facility] Last Admin: 03/26/17 09:19 Dose: Not Given Epoetin Kyle (Procrit) 10,000 unit IV TTS [facility] Stop: 03/30/17 10:01 Last Admin: 03/25/17 10:24 Dose: 10,000 unit Finasteride (Proscar) 5 mg PO DAILY [facility] Last Admin: 03/26/17 09:17 Dose: 5 mg Gemfibrozil (Lopid) 600 mg PO HS [facility] Last Admin: 03/24/17 22:35 Dose: 600 mg Heparin Sodium (Porcine) (Heparin) 1,000 units IVP TTS [facility] Stop: 03/28/17 10:01 Last Admin: 03/25/17 10:23 Dose: 1,000 units Heparin Sodium (Porcine) (Heparin) 3,300 units IVP TTS [facility] Stop: 04/01/17 10:01 Last Admin: 03/25/17 10:23 Dose: 3,300 units Hydralazine HCl (Apresoline) 25 mg PO Q8 [facility] Last Admin: 03/26/17 06:28 Dose: 25 mg Hydrocortisone (Anusol-Hc) 25 mg RC BID [facility] Last Admin: 03/26/17 09:07 Dose: Not Given Metronidazole (Flagyl) 500 mg in 100 mls @ 100 mls/hr IVPB Q8 [facility] Last Admin: 03/26/17 06:28 Dose: 100 mls/hr Heparin Sodium/Sodium Chloride (Heparin 52790 Units/250ml 1/2 Normal Saline) 25 ,000 units in 250 mls @ 13.104 mls/hr IV .Q19H5M PRN; Protocol; 15 UNITS/KG/HR PRN Reason: ADJUST RATE PER PROTOCOL Last Admin: 03/26/17 10:05 Dose: 12 units/kg/hr, 10.483 mls/hr Multivitamins (Hexavitamin) 1 tab PO DAILY [facility] Last Admin: 03/26/17 09:17 Dose: 1 tab Pantoprazole Sodium (Protonix Ec Tab) 40 mg PO DAILY [facility] Last Admin: 03/26/17 09:17 Dose: 40 mg Paricalcitol (Zemplar) 2 mcg IV TTS [facility] Stop: 03/30/17 10:01 Saccharomyces Boulardii (Florastor) 250 mg PO BID [facility] Last Admin: 03/26/17 09:17 Dose: 250 mg Tamsulosin HCl (Flomax) 0.4 mg PO BID [facility] Last Admin: 03/26/17 09:07 Dose: Not Given Vancomycin HCl (Vancocin (Oral Or Rectal Use)) 250 mg PO Q6H [facility] Last Admin: 03/26/17 12:52 Dose: 250 mg - Labs Labs: 03/26/17 07:57 03/26/17 07:57 PT 14.9 SECONDS (9.7-12.2) H 03/26/17 07:57 INR 1.3 03/26/17 07:57 APTT 60 SECONDS (21-34) H D 03/26/17 13:45 - Constitutional Appears: No Acute Distress, Chronically Ill - Neck Exam Neck Exam: Normal Inspection - Respiratory Exam Respiratory Exam: Clear to Ausculation Bilateral - Cardiovascular Exam Cardiovascular Exam: REGULAR RHYTHM - GI/Abdominal Exam GI & Abdominal Exam: Soft - Extremities Exam Extremities Exam: absent: Pedal Edema - Neurological Exam Neurological Exam: Alert, Oriented x3 Assessment and Plan - Assessment and Plan (Free Text) Plan: now pe.ct heparin.,to switch over ot eliquis.
--- NOTE | 2017-03-26 18:11 | PN ---
FOLLOWUP RENAL CONSULTATION LOCATION: Patient is located in room 557. REQUESTED BY: Yeison Cole MD. REASON FOR FOLLOWUP: End-stage renal disease,continuation of the hemodialysis, pulmonary embolism. HISTORY OF PRESENT ILLNESS: Mr. Cho is a 76 years old elderly obese male with a history of longstanding hypertension, BPH, arthritis, recurrent UTI, end-stage renal disease, on hemodialysis for the last 3 months, was admitted with the chief complaints of diarrhea for [id number] weeks prior to the admission and found to have elevated WBC count and also stool for C. diff toxin was positive. His hospital course was complicated by shortness of breath and V/Q scan is positive for intermediate probability for pulmonary embolism. CT angiogram consistent with PE as per the assembly manager, Dr. Paul Valerio, started on anticoagulation. Patient is feeling better, not in any acute distress. Complaints of loose BM x2 today. No chest pain or palpitation. No fever. No cough. No abdominal pain. No nausea, no vomiting, no diarrhea. No swelling of the legs, status post Garay catheter placement. PHYSICAL EXAMINATION: VITAL SIGNS: This afternoon as follows: Blood pressure 139/76, pulse 86, respirations 20, temperature 97.5, saturation 97%. Height 5 feet 8 inches and weight is 192 pounds. GENERAL: Mr. Cho is 76 years elderly obese male, moderately built, moderately nourished, not in distress. HEENT: Pupils are normal and reactive to light and accommodation. Conjunctivae are pink. Sclerae are anicteric. Tongue is moist. Trachea is midline. LUNGS: Symmetric on both sides. Bilateral breath sounds present. Occasional basal crackles present. CARDIOVASCULAR SYSTEM: [employer] [place] at the fifth intercostal space, midclavicular line. S1 and S2 audible. No murmur. No gallop. ABDOMEN: Normal in appearance, soft, tympanic. No guarding. No rigidity. No hepatosplenomegaly. CENTRAL NERVOUS SYSTEMVS: Patient is alert, awake, oriented x2 to 3. Sensory and motor system is grossly within normal limits. EXTREMITIES: No cyanosis, no clubbing, no edema. CURRENT MEDICATIONS: Include as follows: Anusol-HC 25 mg per rectal b.i.d. and hydralazine 25 mg p.o. q. 8 hours, Flagyl 500 mg q. 8 hours, Flomax 0.4 mg p.o. b.i.d., Florastor, and heparin 1000 units three times a week during dialysis and heparin 3300 units IV three times a week in dialysis catheter. Patient is also on IV heparin drip to 13.1 mL/hour and multivitamin one tablet daily and Lopid 600 mg p.o. at bedtime, Maalox, Pepto-Bismol, cholestyramine, Epogen 10,000 units three times a week, Proscar 5 mg daily, Protonix 40 mg daily, Tylenol, vancomycin 250 mg p.o. q. 6 hours, Vasotec 10 mg daily, Zemplar 2 mcg, and allopurinol 100 mg daily. LABORATORY DATA: Include as follows: As of 03/26/2017, WBC 7.4, hemoglobin 9.7, hematocrit is 29.8, platelets 297. PT is 14.9, INR is 1.3, PTT 102, and repeat one is 60. Sodium 134, potassium 3.6, chloride 99, CO2 of 30, BUN 10, creatinine 2.9, glucose 95, calcium 7.6. ASSESSMENT AND PLAN: In summary, Mr. Cho is a 76 years old elderly male, obese with history of hypertension, end-stage renal disease, arthritis, benign prostatic hypertrophic, being treated for Clostridium difficile colitis, and also for possible pulmonary embolism. 1. End-stage renal disease. Continue hemodialysis three times a week, Monday, , Monday. 2. Pulmonary embolism, continue anticoagulation as per Dr. Paul Valerio. 3. Anemia secondary to renal failure. Continue multivitamins and also Procrit during dialysis and discontinue heparin during hemodialysis. We will follow with you. Thank you for allowing me to participate in your patient's care. Continue dietary supplement. Consider to repeat stool for Clostridium difficile toxin again. Emir Kirk MD
--- NOTE | 2017-03-27 00:13 | CON ---
DATE: 03/20/2017 UROLOGY CONSULTATION REQUESTED BY: Yeison Cole MD FILLED BY: Eli Montoya MD REASON FOR CONSULTATION: Difficulty voiding. HISTORY OF PRESENT ILLNESS: Patient is a 76-year-old male with difficulty voiding. Patient is in, otherwise, fair health. Patient was admitted to the hospital on 03/11. Patient was admitted with nausea and vomiting. Patient also reports that he had diarrhea. The patient has had GI care and consultation. Patient also reports that he has had some weak urinary stream since admission. Patient reports no hematuria. No dysuria. The patient has history of renal failure for which he had received hemodialysis. Patient has history of hypertension, hyperlipidemia. Patient has a history of gastritis as well. On admission, patient was found to have leukocytosis as well. Patient has had a GI consultation as well as cardiology care and consultation as well as a nephrology consultation during this admission. The patient reports a weak urinary stream. Occasional lower abdominal pain. Patient had been treated with finasteride and tamsulosin for BPH. There is no history of prostate cancer. There is no history of urolithiasis. LABORATORY DATA: See attached lab reports. Lab reports are reviewed. MEDICATIONS: List is reviewed as well. PHYSICAL EXAMINATION: GENERAL: Patient is well-developed, well-nourished elderly male. Patient is awake and alert. ABDOMEN: Soft. Mild suprapubic tenderness. No dullness to percussion. GENITALIA: Without inflammation. BACK: No CVA tenderness. UROLOGICAL: Patient is currently undergoing hemodialysis. RECTAL EXAMINATION: Not able to be performed at present. IMPRESSION: History of benign prostatic hypertrophy, currently treated with tamsulosin and finasteride. Now with exacerbation of his voiding symptoms. Patient reports poor stream. He also has suprapubic tenderness. Patient has multiple other medical problems including renal failure requiring hemodialysis, as well as gastrointestinal symptoms noted above. RECOMMENDATIONS AND PLAN: Serum PSA. Obtain bladder scan to check postvoid residual. Possible need for Garay catheter. Further therapy to follow according to the patient's clinical course. Thank you for recommending patient for urology consultation. Eli Montoya MD cc: Yeison Cole MD
[2017-03-27] MEDS: Vancomycin 125 MG/5 ML SOLN (ORAL/RECTAL) PO SCH ×5 (00:58→23:58)
[2017-03-27] MEDS: Bismuth Subsalicylate 262 mg Chew Tab PO SCH ×2 (01:00→21:57)
--- NOTE | 2017-03-27 03:17 | CARD ---
APPROVED REPORT EKG Measurement Heart [id number] <Conclusion> Normal sinus rhythm Left axis deviation Abnormal ECG
--- NOTE | 2017-03-27 03:28 | CARD ---
APPROVED REPORT EKG Measurement Heart [id number] <Conclusion> Sinus tachycardia with premature atrial complexes Left axis deviation Pulmonary disease pattern Abnormal ECG
[2017-03-27] MEDS: metroNIDAZOLE IV 500 mg/100 ml 500 MG/100 ML BAG IVPB SCH (05:58)
[2017-03-27 07:57] LABS: INR 1.5
--- NOTE | 2017-03-27 09:14 | CP.PCM.PN ---
Subjective - Date & Time of Evaluation Date of Evaluation: 03/27/17 Time of Evaluation: 09:14 Objective - Vital Signs/Intake and Output Vital Signs (last 24 hours): Temp Pulse Resp BP Pulse Ox 97.5 F L 85 18 154/72 H 100 03/27/17 08:20 03/27/17 08:20 03/27/17 08:20 03/27/17 08:20 03/27/17 08:20 Intake and Output: 03/27/17 03/27/17 06:59 18:59 Intake Total 282.6 Output Total 750 Balance -467.4 - Medications Medications: Current Medications Acetaminophen (Tylenol 325mg Tab) 650 mg PO Q4H PRN PRN Reason: Fever >100.4 F Last Admin: 03/24/17 01:07 Dose: 650 mg Allopurinol (Zyloprim) 100 mg PO DAILY [facility] Last Admin: 03/26/17 09:17 Dose: 100 mg Cholestyramine Resin (Prevalite) 4 gm PO 2100 [facility] Last Admin: 03/26/17 20:53 Dose: 4 gm Cholestyramine Resin (Prevalite) 4 gm PO 0900 [facility] Last Admin: 03/26/17 09:01 Dose: 4 gm Enalapril Maleate (Vasotec) 10 mg PO DAILY [facility] Last Admin: 03/26/17 09:19 Dose: Not Given Epoetin Kyle (Procrit) 10,000 unit IV TTS [facility] Stop: 03/30/17 10:01 Last Admin: 03/25/17 10:24 Dose: 10,000 unit Finasteride (Proscar) 5 mg PO DAILY [facility] Last Admin: 03/26/17 09:17 Dose: 5 mg Heparin Sodium (Porcine) (Heparin) 1,000 units IVP TTS [facility] Stop: 03/28/17 10:01 Last Admin: 03/25/17 10:23 Dose: 1,000 units Heparin Sodium (Porcine) (Heparin) 3,300 units IVP TTS [facility] Stop: 04/01/17 10:01 Last Admin: 03/25/17 10:23 Dose: 3,300 units Hydralazine HCl (Apresoline) 25 mg PO Q8 [facility] Last Admin: 03/27/17 05:58 Dose: 25 mg Hydrocortisone (Anusol-Hc) 25 mg RC BID [facility] Last Admin: 03/26/17 17:32 Dose: 25 mg Heparin Sodium/Sodium Chloride (Heparin 36030 Units/250ml 1/2 Normal Saline) 25 ,000 units in 250 mls @ 10.44 mls/hr IV .[id number] PRN; Protocol PRN Reason: ADJUST RATE PER PROTOCOL Last Admin: 03/26/17 10:05 Dose: 12 units/kg/hr, 10.483 mls/hr Multivitamins (Hexavitamin) 1 tab PO DAILY [facility] Last Admin: 03/26/17 09:17 Dose: 1 tab Pantoprazole Sodium (Protonix Ec Tab) 40 mg PO DAILY [facility] Last Admin: 03/26/17 09:17 Dose: 40 mg Paricalcitol (Zemplar) 2 mcg IV TTS [facility] Stop: 03/30/17 10:01 Saccharomyces Boulardii (Florastor) 250 mg PO BID [facility] Last Admin: 03/26/17 17:32 Dose: 250 mg Tamsulosin HCl (Flomax) 0.4 mg PO BID [facility] Last Admin: 03/26/17 17:32 Dose: 0.4 mg Vancomycin HCl (Vancocin (Oral Or Rectal Use)) 250 mg PO Q6H [facility] Last Admin: 03/27/17 05:58 Dose: 250 mg Warfarin Sodium (Coumadin) 7.5 mg PO 1800 [facility] Stop: 03/27/17 18:01 - Labs Labs: 03/26/17 07:57 03/26/17 07:57 PT 17.2 SECONDS (9.7-12.2) H 03/27/17 07:34 INR 1.5 03/27/17 07:34 APTT 60 SECONDS (21-34) H D 03/26/17 13:45
[2017-03-27] MEDS: Cholestyramine 4 gm/5.5 gm UD Packet PO SCH ×2 (10:16→22:13)
[2017-03-27] MEDS: Pantoprazole 40 mg EC Tab PO SCH (10:16)
[2017-03-27] MEDS: Saccharomyces Boulardi 250 mg Cap PO SCH ×2 (10:16→18:39)
--- NOTE | 2017-03-27 11:07 | CP.PCM.PN ---
Subjective - Date & Time of Evaluation Date of Evaluation: 03/27/17 Time of Evaluation: 07:40 - Subjective Subjective: the patient seen and examined Lying comfortably in no acute distress On heparin drip for pulmonary embolism No active bleeding noted Started on Coumadin Objective - Vital Signs/Intake and Output Vital Signs (last 24 hours): Temp Pulse Resp BP Pulse Ox 97.5 F L 85 18 154/72 H 100 03/27/17 08:20 03/27/17 08:20 03/27/17 08:20 03/27/17 08:20 03/27/17 08:20 Intake and Output: 03/27/17 03/27/17 06:59 18:59 Intake Total 282.6 Output Total 750 Balance -467.4 - Medications Medications: Current Medications Acetaminophen (Tylenol 325mg Tab) 650 mg PO Q4H PRN PRN Reason: Fever >100.4 F Last Admin: 03/24/17 01:07 Dose: 650 mg Cholestyramine Resin (Prevalite) 4 gm PO 2100 [facility] Last Admin: 03/26/17 20:53 Dose: 4 gm Cholestyramine Resin (Prevalite) 4 gm PO 0900 [facility] Last Admin: 03/27/17 10:16 Dose: 4 gm Epoetin Kyle (Procrit) 10,000 unit IV TTS [facility] Stop: 03/30/17 10:01 Last Admin: 03/25/17 10:24 Dose: 10,000 unit Heparin Sodium (Porcine) (Heparin) 1,000 units IVP TTS [facility] Stop: 03/28/17 10:01 Last Admin: 03/25/17 10:23 Dose: 1,000 units Heparin Sodium (Porcine) (Heparin) 3,300 units IVP TTS [facility] Stop: 04/01/17 10:01 Last Admin: 03/25/17 10:23 Dose: 3,300 units Hydralazine HCl (Apresoline) 25 mg PO Q8 [facility] Last Admin: 03/27/17 05:58 Dose: 25 mg Hydrocortisone (Anusol-Hc) 25 mg RC BID [facility] Last Admin: 03/27/17 10:16 Dose: 25 mg Heparin Sodium/Sodium Chloride (Heparin 36234 Units/250ml 1/2 Normal Saline) 25 ,000 units in 250 mls @ 10.44 mls/hr IV .[id number] PRN; Protocol PRN Reason: ADJUST RATE PER PROTOCOL Last Admin: 03/26/17 10:05 Dose: 12 units/kg/hr, 10.483 mls/hr Pantoprazole Sodium (Protonix Ec Tab) 40 mg PO DAILY [facility] Last Admin: 03/27/17 10:16 Dose: 40 mg Paricalcitol (Zemplar) 2 mcg IV TTS [facility] Stop: 03/30/17 10:01 Saccharomyces Boulardii (Florastor) 250 mg PO BID [facility] Last Admin: 03/27/17 10:16 Dose: 250 mg Tamsulosin HCl (Flomax) 0.4 mg PO BID [facility] Last Admin: 03/27/17 10:16 Dose: 0.4 mg Vancomycin HCl (Vancocin (Oral Or Rectal Use)) 250 mg PO Q6H [facility] Last Admin: 03/27/17 05:58 Dose: 250 mg Warfarin Sodium (Coumadin) 7.5 mg PO 1800 [facility] Stop: 03/27/17 18:01 - Labs Labs: 03/26/17 07:57 03/26/17 07:57 PT 17.2 SECONDS (9.7-12.2) H 03/27/17 07:34 INR 1.5 03/27/17 07:34 APTT 71 SECONDS (21-34) H D 03/27/17 07:34 - Head Exam Head Exam: ATRAUMATIC, NORMOCEPHALIC - ENT Exam ENT Exam: Mucous Membranes Moist - Neck Exam Neck Exam: Normal Inspection - Respiratory Exam Respiratory Exam: Clear to Ausculation Bilateral - Cardiovascular Exam Cardiovascular Exam: REGULAR RHYTHM - GI/Abdominal Exam GI & Abdominal Exam: Soft, Normal Bowel Sounds - Extremities Exam Extremities Exam: Full ROM - Neurological Exam Neurological Exam: Awake Assessment and Plan (1) Pulmonary embolism Assessment & Plan: patient on heparin drip with therapeutic PTT Started on Coumadin Followup PT/INR Patient with pulmonary embolism and end-stage renal disease were not included in the OLMAN study for ELIQUIS. Prefer to give Coumadin Status: Acute (2) C. difficile diarrhea Status: Acute (3) CKD (chronic kidney disease) Status: Acute
[2017-03-27] MEDS: Multiple Vitamins Tab PO SCH ×2 (12:54→12:58)
[2017-03-27] MEDS: Heparin25000 units/250ml 1/2NS 25,000 UNITS/250 ML BAG IV PRN (12:58)
[2017-03-27 13:10] VITALS: RESP 20
--- NOTE | 2017-03-27 15:10 | CP.PCM.PN ---
Subjective - Date & Time of Evaluation Date of Evaluation: 03/27/17 Time of Evaluation: 15:09 - Subjective Subjective: poor appetiite Objective - Vital Signs/Intake and Output Vital Signs (last 24 hours): Temp Pulse Resp BP Pulse Ox 97.3 F L 92 H 20 133/78 98 03/27/17 13:09 03/27/17 13:09 03/27/17 13:09 03/27/17 13:09 03/27/17 13:09 Intake and Output: 03/27/17 03/27/17 06:59 18:59 Intake Total 282.6 250 Output Total 750 Balance -467.4 250 - Medications Medications: Current Medications Acetaminophen (Tylenol 325mg Tab) 650 mg PO Q4H PRN PRN Reason: Fever >100.4 F Last Admin: 03/24/17 01:07 Dose: 650 mg Allopurinol (Zyloprim) 100 mg PO DAILY [facility] Last Admin: 03/27/17 13:11 Dose: Not Given Cholestyramine Resin (Prevalite) 4 gm PO 2100 [facility] Last Admin: 03/26/17 20:53 Dose: 4 gm Cholestyramine Resin (Prevalite) 4 gm PO 0900 [facility] Last Admin: 03/27/17 10:16 Dose: 4 gm Enalapril Maleate (Vasotec) 10 mg PO DAILY [facility] Last Admin: 03/27/17 13:08 Dose: Not Given Epoetin Kyle (Procrit) 10,000 unit IV TTS [facility] Stop: 03/30/17 10:01 Last Admin: 03/25/17 10:24 Dose: 10,000 unit Heparin Sodium (Porcine) (Heparin) 1,000 units IVP TTS [facility] Stop: 03/28/17 10:01 Last Admin: 03/25/17 10:23 Dose: 1,000 units Heparin Sodium (Porcine) (Heparin) 3,300 units IVP TTS [facility] Stop: 04/01/17 10:01 Last Admin: 03/25/17 10:23 Dose: 3,300 units Hydralazine HCl (Apresoline) 25 mg PO Q8 [facility] Last Admin: 03/27/17 13:07 Dose: 25 mg Hydrocortisone (Anusol-Hc) 25 mg RC BID [facility] Last Admin: 03/27/17 10:16 Dose: 25 mg Heparin Sodium/Sodium Chloride (Heparin 68784 Units/250ml 1/2 Normal Saline) 25 ,000 units in 250 mls @ 10.44 mls/hr IV .[id number] PRN; Protocol PRN Reason: ADJUST RATE PER PROTOCOL Last Admin: 03/27/17 12:58 Dose: 12 units/kg/hr, 10.483 mls/hr Multivitamins (Hexavitamin) 1 tab PO DAILY [facility] Last Admin: 03/27/17 12:58 Dose: 1 tab Pantoprazole Sodium (Protonix Ec Tab) 40 mg PO DAILY [facility] Last Admin: 03/27/17 10:16 Dose: 40 mg Paricalcitol (Zemplar) 2 mcg IV TTS [facility] Stop: 03/30/17 10:01 Saccharomyces Boulardii (Florastor) 250 mg PO BID [facility] Last Admin: 03/27/17 10:16 Dose: 250 mg Tamsulosin HCl (Flomax) 0.4 mg PO BID [facility] Last Admin: 03/27/17 10:16 Dose: 0.4 mg Vancomycin HCl (Vancocin (Oral Or Rectal Use)) 250 mg PO Q6H [facility] Last Admin: 03/27/17 13:07 Dose: 250 mg Warfarin Sodium (Coumadin) 7.5 mg PO 1800 [facility] Stop: 03/27/17 18:01 - Labs Labs: 03/26/17 07:57 03/26/17 07:57 PT 17.2 SECONDS (9.7-12.2) H 03/27/17 07:34 INR 1.5 03/27/17 07:34 APTT 71 SECONDS (21-34) H D 03/27/17 07:34 - Constitutional Appears: No Acute Distress, Chronically Ill - Head Exam Head Exam: NORMOCEPHALIC - Respiratory Exam Respiratory Exam: Clear to Ausculation Bilateral - Cardiovascular Exam Cardiovascular Exam: REGULAR RHYTHM - GI/Abdominal Exam GI & Abdominal Exam: Soft - Extremities Exam Extremities Exam: absent: Pedal Edema - Neurological Exam Neurological Exam: Alert, Oriented x3 Assessment and Plan - Assessment and Plan (Free Text) Assessment: pe.coumadin started.
--- NOTE | 2017-03-27 22:07 | CP.PCM.PN ---
Subjective - Date & Time of Evaluation Date of Evaluation: 03/27/17 Time of Evaluation: 19:00 - Subjective Subjective: Pt seen and evalauted, more alert, less shprt of breath. c/o epigastric discomfort, denies chest pain, pt didn't have any bowel movement today, he had yesterday Objective - Vital Signs/Intake and Output Vital Signs (last 24 hours): Temp Pulse Resp BP Pulse Ox 97.4 F L 89 20 143/83 98 03/27/17 15:44 03/27/17 18:00 03/27/17 15:44 03/27/17 15:44 03/27/17 15:44 Intake and Output: 03/27/17 03/28/17 18:59 06:59 Intake Total 810 Output Total 400 Balance 410 - Medications Medications: Current Medications Acetaminophen (Tylenol 325mg Tab) 650 mg PO Q4H PRN PRN Reason: Fever >100.4 F Last Admin: 03/24/17 01:07 Dose: 650 mg Allopurinol (Zyloprim) 100 mg PO DAILY [facility] Last Admin: 03/27/17 13:11 Dose: Not Given Cholestyramine Resin (Prevalite) 4 gm PO 2100 [facility] Last Admin: 03/26/17 20:53 Dose: 4 gm Cholestyramine Resin (Prevalite) 4 gm PO 0900 [facility] Last Admin: 03/27/17 10:16 Dose: 4 gm Enalapril Maleate (Vasotec) 10 mg PO DAILY [facility] Last Admin: 03/27/17 13:08 Dose: Not Given Epoetin Kyle (Procrit) 10,000 unit IV TTS [facility] Stop: 03/30/17 10:01 Last Admin: 03/25/17 10:24 Dose: 10,000 unit Heparin Sodium (Porcine) (Heparin) 1,000 units IVP TTS [facility] Stop: 03/28/17 10:01 Last Admin: 03/25/17 10:23 Dose: 1,000 units Heparin Sodium (Porcine) (Heparin) 3,300 units IVP TTS [facility] Stop: 04/01/17 10:01 Last Admin: 03/25/17 10:23 Dose: 3,300 units Hydralazine HCl (Apresoline) 25 mg PO Q8 [facility] Last Admin: 03/27/17 13:07 Dose: 25 mg Hydrocortisone (Anusol-Hc) 25 mg RC BID [facility] Last Admin: 03/27/17 18:39 Dose: 25 mg Heparin Sodium/Sodium Chloride (Heparin 12524 Units/250ml 1/2 Normal Saline) 25 ,000 units in 250 mls @ 10.44 mls/hr IV .[id number] PRN; Protocol PRN Reason: ADJUST RATE PER PROTOCOL Last Admin: 03/27/17 12:58 Dose: 12 units/kg/hr, 10.483 mls/hr Multivitamins (Hexavitamin) 1 tab PO DAILY [facility] Last Admin: 03/27/17 12:58 Dose: 1 tab Pantoprazole Sodium (Protonix Ec Tab) 40 mg PO DAILY [facility] Last Admin: 03/27/17 10:16 Dose: 40 mg Paricalcitol (Zemplar) 2 mcg IV TTS [facility] Stop: 03/30/17 10:01 Saccharomyces Boulardii (Florastor) 250 mg PO BID [facility] Last Admin: 03/27/17 18:39 Dose: 250 mg Tamsulosin HCl (Flomax) 0.4 mg PO BID [facility] Last Admin: 03/27/17 18:39 Dose: 0.4 mg Vancomycin HCl (Vancocin (Oral Or Rectal Use)) 250 mg PO Q6H [facility] Last Admin: 03/27/17 18:39 Dose: 250 mg - Labs Labs: 03/26/17 07:57 03/26/17 07:57 PT 17.2 SECONDS (9.7-12.2) H 03/27/17 07:34 INR 1.5 03/27/17 07:34 APTT 71 SECONDS (21-34) H D 03/27/17 07:34 - Constitutional Appears: No Acute Distress - Head Exam Head Exam: ATRAUMATIC, NORMAL INSPECTION, NORMOCEPHALIC - Eye Exam Eye Exam: EOMI, Normal appearance, PERRL Pupil Exam: NORMAL ACCOMODATION, PERRL - Respiratory Exam Respiratory Exam: Clear to Ausculation Bilateral, NORMAL BREATHING PATTERN - Cardiovascular Exam Cardiovascular Exam: REGULAR RHYTHM, +S1, +S2. absent: Murmur - GI/Abdominal Exam GI & Abdominal Exam: Tenderness, Hypoactive Bowel Sounds - Rectal Exam Rectal Exam: NORMAL INSPECTION Assessment and Plan (1) Abdominal tenderness, LLQ (left lower quadrant) Status: Acute (2) Acute diarrhea Status: Acute (3) C. difficile diarrhea Status: Acute (4) CKD (chronic kidney disease) Status: Acute (5) Complicated urinary tract infection Status: Acute (6) Shortness of breath Status: Acute (7) Urinary retention Status: Acute
--- NOTE | 2017-03-27 22:49 | PCM.URO ---
Urology Progress Note - General General: Tolerating Diet - Subjective Abdominal Pain: No Flank Pain: No Nausea: No Voiding Well: No (pierre in place) Hematuria: No Dsypnea: No Chest Pain: No Fever & Chills: No - Objective Lab Studies: Reviewed Lab Results Last 24 Hours: Laboratory Results - last 24 hr 03/26/17 03/27/17 03/27/17 14:13 06:16 07:34 PT 17.2 H INR 1.5 APTT 71 H D POC Glucose (mg/dL) 76 C. difficile Ag & Toxin Negative 03/27/17 03/27/17 03/27/17 11:28 16:08 21:13 PT INR APTT POC Glucose (mg/dL) 138 H 122 H 118 H C. difficile Ag & Toxin Intake & Output: Intake & Output 03/27/17 03/27/17 03/28/17 06:59 18:59 06:59 Intake Total 282.6 810 Output Total 750 400 Balance -467.4 410 Intake: IV 250 Intake, IV Amount 182.6 80 Left Antecubital 100 80 Right Forearm 82.6 Oral 100 480 Output: Urine 750 400 Urethral (Pierre) 750 400 Other: # Bowel Movements 1 1 Vital Signs: Vital Signs - 24 hr 03/26/17 03/27/17 03/27/17 23:40 00:00 05:59 Temperature 97.9 F Pulse Rate 95 H 100 H 98 H Respiratory 20 Rate Blood Pressure 165/83 H 149/82 O2 Sat by Pulse 95 Oximetry 03/27/17 03/27/17 03/27/17 08:20 13:07 13:08 Temperature 97.5 F L Pulse Rate 85 Respiratory 18 Rate Blood Pressure 154/72 H 133/78 133/78 O2 Sat by Pulse 100 Oximetry 03/27/17 03/27/17 03/27/17 13:09 15:44 18:00 Temperature 97.3 F L 97.4 F L Pulse Rate 92 H 85 89 Respiratory 20 20 Rate Blood Pressure 133/78 143/83 O2 Sat by Pulse 98 98 Oximetry - Physical Exam Abdominal Exam: Soft, Non-Tender, Non-Distended Back: No CVA Tenderness Genitalia: Without Inflammation Urinary Catheter Draining Well: Yes Urine Color: Clear, Yellow - Plan Catheter Care: Yes Additional Information: Imp: urinary retention. azotemia. Rec/plan: Catheter in place. I recommended catheter removal fot trial of voiding. However, pt did not want catheter removed yet. Continue tamsulosin bid. Once activity increases, trial of voiding t/f. Consider cystogram, cystoscopy. Thank you. YS - Date & Time of Note Date: 03/27/17 Time: 11:00
[2017-03-28] MEDS: Vancomycin 125 MG/5 ML SOLN (ORAL/RECTAL) PO SCH ×3 (05:31→18:28)
[2017-03-28 07:32] LABS: HEMATOCRIT 31.6 % (35.0-51.0); MEAN CELL VOLUME 91.5 fL (80.0-94.0); MEAN CORPUSCULAR HEMOGLOBIN 29.9 pg (27.0-31.0); MEAN CORPUSCULAR HGB CONC 32.7 g/dL (33.0-37.0); RED CELL DISTRIBUTION WIDTH 19.9 % (11.5-14.5); WHITE BLOOD COUNT 7.2 K/uL (4.8-10.8)
[2017-03-28 07:38] LABS: INR 1.8
[2017-03-28 08:11] LABS: CALCIUM 7.9 mg/dl (8.6-10.4)
[2017-03-28] MEDS: Multiple Vitamins Tab PO SCH (09:13)
[2017-03-28] MEDS: Saccharomyces Boulardi 250 mg Cap PO SCH ×2 (09:13→18:28)
[2017-03-28] MEDS: Pantoprazole 40 mg EC Tab PO SCH (09:14)
[2017-03-28] MEDS: Cholestyramine 4 gm/5.5 gm UD Packet PO SCH (09:14)
--- NOTE | 2017-03-28 11:30 | CP.PCM.PN ---
Subjective - Date & Time of Evaluation Date of Evaluation: 03/28/17 Time of Evaluation: 11:29 - Subjective Subjective: pt is seen and examined, follow up consult is dictated #[id number] for hd today Objective - Vital Signs/Intake and Output Vital Signs (last 24 hours): Temp Pulse Resp BP Pulse Ox 97.8 F 101 H 20 157/65 H 97 03/28/17 08:50 03/28/17 08:50 03/28/17 08:50 03/28/17 11:02 03/28/17 08:50 Intake and Output: 03/28/17 03/28/17 06:59 18:59 Intake Total 320 Output Total 800 Balance -800 320 - Medications Medications: Current Medications Acetaminophen (Tylenol 325mg Tab) 650 mg PO Q4H PRN PRN Reason: Fever >100.4 F Last Admin: 03/28/17 09:14 Dose: 650 mg Allopurinol (Zyloprim) 100 mg PO DAILY [facility] Last Admin: 03/28/17 09:13 Dose: 100 mg Cholestyramine Resin (Prevalite) 4 gm PO 2100 [facility] Last Admin: 03/27/17 22:13 Dose: 4 gm Cholestyramine Resin (Prevalite) 4 gm PO 0900 [facility] Last Admin: 03/28/17 09:14 Dose: 4 gm Enalapril Maleate (Vasotec) 10 mg PO DAILY [facility] Last Admin: 03/28/17 11:02 Dose: 10 mg Epoetin Kyle (Procrit) 10,000 unit IV TTS [facility] Stop: 03/30/17 10:01 Last Admin: 03/25/17 10:24 Dose: 10,000 unit Heparin Sodium (Porcine) (Heparin) 3,300 units IVP TTS [facility] Stop: 04/01/17 10:01 Last Admin: 03/25/17 10:23 Dose: 3,300 units Hydralazine HCl (Apresoline) 25 mg PO Q8 [facility] Last Admin: 03/28/17 05:27 Dose: Not Given Hydrocortisone (Anusol-Hc) 25 mg RC BID [facility] Last Admin: 03/28/17 09:13 Dose: 25 mg Heparin Sodium/Sodium Chloride (Heparin 46334 Units/250ml 1/2 Normal Saline) 25 ,000 units in 250 mls @ 10.44 mls/hr IV .[id number] PRN; Protocol PRN Reason: ADJUST RATE PER PROTOCOL Last Admin: 03/27/17 12:58 Dose: 12 units/kg/hr, 10.483 mls/hr Multivitamins (Hexavitamin) 1 tab PO DAILY [facility] Last Admin: 03/28/17 09:13 Dose: 1 tab Pantoprazole Sodium (Protonix Ec Tab) 40 mg PO DAILY [facility] Last Admin: 03/28/17 09:14 Dose: 40 mg Paricalcitol (Zemplar) 2 mcg IV TTS [facility] Stop: 03/30/17 10:01 Saccharomyces Boulardii (Florastor) 250 mg PO BID [facility] Last Admin: 03/28/17 09:13 Dose: 250 mg Tamsulosin HCl (Flomax) 0.4 mg PO BID [facility] Last Admin: 03/28/17 09:13 Dose: 0.4 mg Vancomycin HCl (Vancocin (Oral Or Rectal Use)) 250 mg PO Q6H [facility] Last Admin: 03/28/17 05:31 Dose: 250 mg - Labs Labs: 03/28/17 07:17 03/28/17 07:17 PT 20.2 SECONDS (9.7-12.2) H 03/28/17 07:17 INR 1.8 03/28/17 07:17 APTT 71 SECONDS (21-34) H D 03/27/17 07:34
[2017-03-28] MEDS: Heparin25000 units/250ml 1/2NS 25,000 UNITS/250 ML BAG IV PRN (15:05)
[2017-03-28] MEDS ORDERED: Epoetin Alfa 10,000 unit/ml Dialysis IV SCH (15:45)
[2017-03-28] MEDS ORDERED: Paricalcitol 2 mcg/ml Inj IV SCH (15:45)
--- NOTE | 2017-03-28 17:11 | CP.PCM.PN ---
Subjective - Date & Time of Evaluation Date of Evaluation: 03/28/17 Time of Evaluation: 10:00 - Subjective Subjective: Patient seen today , awake, alert, ox3, denies any chest pain, sob, abdominal pain , c/o generalized weakness Objective - Vital Signs/Intake and Output Vital Signs (last 24 hours): Temp Pulse Resp BP Pulse Ox 97.5 F L 82 20 108/60 100 03/28/17 14:00 03/28/17 14:00 03/28/17 14:00 03/28/17 16:30 03/28/17 14:00 Intake and Output: 03/28/17 03/28/17 06:59 18:59 Intake Total 570 Output Total 800 Balance -800 570 - Medications Medications: Current Medications Acetaminophen (Tylenol 325mg Tab) 650 mg PO Q4H PRN PRN Reason: Fever >100.4 F Last Admin: 03/28/17 09:14 Dose: 650 mg Allopurinol (Zyloprim) 100 mg PO DAILY [facility] Last Admin: 03/28/17 09:13 Dose: 100 mg Enalapril Maleate (Vasotec) 10 mg PO DAILY [facility] Last Admin: 03/28/17 11:02 Dose: 10 mg Epoetin Kyle (Procrit) 10,000 unit IV TTS [facility] Stop: 03/30/17 10:01 Last Admin: 03/28/17 16:42 Dose: 10,000 unit Heparin Sodium (Porcine) (Heparin) 3,300 units IVP TTS [facility] Stop: 04/01/17 10:01 Last Admin: 03/28/17 16:45 Dose: 3,300 units Hydralazine HCl (Apresoline) 25 mg PO Q8 [facility] Last Admin: 03/28/17 14:09 Dose: Not Given Hydrocortisone (Anusol-Hc) 25 mg RC BID [facility] Last Admin: 03/28/17 09:13 Dose: 25 mg Heparin Sodium/Sodium Chloride (Heparin 30695 Units/250ml 1/2 Normal Saline) 25 ,000 units in 250 mls @ 10.44 mls/hr IV .[id number] PRN; Protocol PRN Reason: ADJUST RATE PER PROTOCOL Last Admin: 03/28/17 15:05 Dose: 12 units/kg/hr, 10.483 mls/hr Multivitamins (Hexavitamin) 1 tab PO DAILY [facility] Last Admin: 03/28/17 09:13 Dose: 1 tab Pantoprazole Sodium (Protonix Ec Tab) 40 mg PO DAILY [facility] Last Admin: 03/28/17 09:14 Dose: 40 mg Paricalcitol (Zemplar) 2 mcg IV TTS [facility] Stop: 04/01/17 10:01 Last Admin: 03/28/17 16:43 Dose: 2 mcg Saccharomyces Boulardii (Florastor) 250 mg PO BID [facility] Last Admin: 03/28/17 09:13 Dose: 250 mg Tamsulosin HCl (Flomax) 0.4 mg PO BID [facility] Last Admin: 03/28/17 09:13 Dose: 0.4 mg Vancomycin HCl (Vancocin (Oral Or Rectal Use)) 250 mg PO Q6H [facility] Last Admin: 03/28/17 16:16 Dose: Not Given Warfarin Sodium (Coumadin) 7.5 mg PO 1800 [facility] Stop: 03/28/17 18:01 - Labs Labs: 03/28/17 07:17 03/28/17 07:17 PT 20.2 SECONDS (9.7-12.2) H 03/28/17 07:17 INR 1.8 03/28/17 07:17 APTT 66 SECONDS (21-34) H D 03/28/17 07:17 Assessment and Plan - Assessment and Plan (Free Text) Assessment: A/P 76 yr old male admitted for c- dif positive on vancomycin + PE AND on heparin drip and bridge with coumadin today INR 1.8, D/w Dr. Melo ,continue with heparin drip until INR above 2 ( to keep level between 2- 2.5) will give 7.5 mg of coumadin an d repeat INR in am The above plan discussed with Dr. Cole , who understands and agrees with plan
--- NOTE | 2017-03-28 17:29 | CP.PCM.PN ---
Subjective - Date & Time of Evaluation Date of Evaluation: 03/28/17 Time of Evaluation: 11:25 - Subjective Subjective: Patient seen and examined Denies shortness of breath Afebrile No chest pain On heparin drip and Coumadin Objective - Vital Signs/Intake and Output Vital Signs (last 24 hours): Temp Pulse Resp BP Pulse Ox 97.5 F L 82 20 98/67 L 100 03/28/17 14:00 03/28/17 14:00 03/28/17 14:00 03/28/17 17:00 03/28/17 14:00 Intake and Output: 03/28/17 03/28/17 06:59 18:59 Intake Total 570 Output Total 800 Balance -800 570 - Medications Medications: Current Medications Acetaminophen (Tylenol 325mg Tab) 650 mg PO Q4H PRN PRN Reason: Fever >100.4 F Last Admin: 03/28/17 09:14 Dose: 650 mg Allopurinol (Zyloprim) 100 mg PO DAILY [facility] Last Admin: 03/28/17 09:13 Dose: 100 mg Enalapril Maleate (Vasotec) 10 mg PO DAILY [facility] Last Admin: 03/28/17 11:02 Dose: 10 mg Epoetin Kyle (Procrit) 10,000 unit IV TTS [facility] Stop: 03/30/17 10:01 Last Admin: 03/28/17 16:42 Dose: 10,000 unit Heparin Sodium (Porcine) (Heparin) 3,300 units IVP TTS [facility] Stop: 04/01/17 10:01 Last Admin: 03/28/17 16:45 Dose: 3,300 units Hydralazine HCl (Apresoline) 25 mg PO Q8 [facility] Last Admin: 03/28/17 14:09 Dose: Not Given Hydrocortisone (Anusol-Hc) 25 mg RC BID [facility] Last Admin: 03/28/17 09:13 Dose: 25 mg Heparin Sodium/Sodium Chloride (Heparin 43878 Units/250ml 1/2 Normal Saline) 25 ,000 units in 250 mls @ 10.44 mls/hr IV .[id number] PRN; Protocol PRN Reason: ADJUST RATE PER PROTOCOL Last Admin: 03/28/17 15:05 Dose: 12 units/kg/hr, 10.483 mls/hr Multivitamins (Hexavitamin) 1 tab PO DAILY [facility] Last Admin: 03/28/17 09:13 Dose: 1 tab Pantoprazole Sodium (Protonix Ec Tab) 40 mg PO DAILY [facility] Last Admin: 03/28/17 09:14 Dose: 40 mg Paricalcitol (Zemplar) 2 mcg IV TTS [facility] Stop: 04/01/17 10:01 Last Admin: 03/28/17 16:43 Dose: 2 mcg Saccharomyces Boulardii (Florastor) 250 mg PO BID [facility] Last Admin: 03/28/17 09:13 Dose: 250 mg Tamsulosin HCl (Flomax) 0.4 mg PO BID [facility] Last Admin: 03/28/17 09:13 Dose: 0.4 mg Vancomycin HCl (Vancocin (Oral Or Rectal Use)) 250 mg PO Q6H [facility] Last Admin: 03/28/17 16:16 Dose: Not Given Warfarin Sodium (Coumadin) 7.5 mg PO 1800 [facility] Stop: 03/28/17 18:01 - Labs Labs: 03/28/17 07:17 03/28/17 07:17 PT 20.2 SECONDS (9.7-12.2) H 03/28/17 07:17 INR 1.8 03/28/17 07:17 APTT 66 SECONDS (21-34) H D 03/28/17 07:17 Assessment and Plan (1) Pulmonary embolism Status: Acute (2) C. difficile diarrhea Status: Acute (3) CKD (chronic kidney disease) Status: Acute
--- NOTE | 2017-03-28 17:29 | PN ---
LOCATION: The patient is located in room 557, bed A. REQUESTED BY: Dr. Yeison Cole. REASON FOR RENAL CONSULTATION: End-stage renal disease, on hemodialysis three times a week; pulmonary embolism; and C. diff colitis. HISTORY OF PRESENT ILLNESS: Mr. Cho is 76 years old elderly obese male with a history of hypertension, arthritis, BPH, end-stage renal disease, recurrent UTI, urinary retention who was admitted with severe diarrhea for two to three weeks prior to the admission and found to have elevated WBC count and also found to have a stool C. diff toxin, was being treated for C. diff colitis. The patient is feeling much better. No diarrhea today. No chest pain or palpitation. No fever. No cough. No abdominal pain. No nausea, no vomiting or diarrhea. VITAL SIGNS: As follows, blood pressure 157/65, pulse 101, respirations , temperature 97.8, saturation 97%. Height 5 feet 8 inches, weight is 192 pounds. HEENT AND PHYSICAL EXAMINATION: Mr. Cho is 76 years old elderly obese male, moderately built and moderately nourished, not in distress. HEENT: Pupils normal and reactive to light and accommodation. Conjunctivae pink. Sclerae anicteric. Tongue is moist. Trachea is midline. LUNGS: Symmetric on both sides. Bilateral breath sounds present. Occasional basal crackles present. CVS: [place] at the fifth intercostal space, midclavicular area. S1 and S2 audible. No murmur or gallop. ABDOMEN: Normal in appearance, soft, tympanic. No guarding. No rigidity. No hepatosplenomegaly. TRADE FACILITATOR: The patient is alert, awake, oriented times three. Nonfocal neuro examination. Cranial nerves II through XII are grossly intact. Sensory and motor system is grossly within normal limits. EXTREMITIES: No cyanosis, no clubbing, no edema. CURRENT LABORATORY DATA: Include as follows, Anusol suppository 25 mg b.i.d., hydralazine 25 mg p.o. q. 8h., Flomax 0.4 mg p.o. b.i.d., Florastor 250 mg b.i.d., heparin 3300 units three times a week in the PermCath and heparin at 10.4 mL per hour and multivitamin 1 tablet daily, cholestyramine, Epogen, Protonix, Tylenol, vancomycin 250 mg p.o. q. 6h., enalapril 10 mg daily, Zemplar 2 mcg three times a week, allopurinol 100 mg p.o. daily. LABORATORY DATA: As of 03/28/2017, WBC 7.2, hemoglobin 10.3, hematocrit is 31.6, platelets 341,000. Sodium 131, potassium is 4, chloride 100, CO2 of 27, BUN 21, creatinine 4.6, glucose 83, calcium 7.9. PT is 20.2, INR 1.8. In summary, Mr. Cho is 76 years old elderly obese male with a history of hypertension, BPH, arthritis, end-stage renal disease who was admitted with severe diarrhea and found to have a C. diff colitis and now his hospital course is complicated by shortness of breath and positive for V/Q scan probability and also, a CT angio consistent with PE as per the efficiency miner blasting, Dr. Paul Valerio, now on anticoagulation. 1. End-stage renal disease. Continue hemodialysis three times a week, Monday, , Monday. 2. Hypertension. Blood pressure is stable. Continue his current medications, hydralazine and enalapril. 3. Anemia. Hemoglobin and hematocrit is improving. 4. Congestive heart failure. 5. Pneumonia, improving. Repeat chest x-ray post dialysis today, if possible. We will follow up with you. Thank you for allowing me to participate in your patient's care. The patient is due for hemodialysis today. Emir Kirk MD
--- NOTE | 2017-03-28 21:54 | CP.PCM.PN ---
Subjective - Date & Time of Evaluation Date of Evaluation: 03/28/17 Time of Evaluation: 21:00 - Subjective Subjective: Pt seen and examined at bedside, INR is going up, he is less short of breath, more alert, no bowel movements so i d/c cholestyramine Objective - Vital Signs/Intake and Output Vital Signs (last 24 hours): Temp Pulse Resp BP Pulse Ox 97.3 F L 100 H 20 129/77 100 03/28/17 17:30 03/28/17 17:30 03/28/17 17:30 03/28/17 17:30 03/28/17 17:30 Intake and Output: 03/28/17 03/29/17 18:59 06:59 Intake Total 570 Balance 570 - Medications Medications: Current Medications Acetaminophen (Tylenol 325mg Tab) 650 mg PO Q4H PRN PRN Reason: Fever >100.4 F Last Admin: 03/28/17 09:14 Dose: 650 mg Allopurinol (Zyloprim) 100 mg PO DAILY [facility] Last Admin: 03/28/17 09:13 Dose: 100 mg Enalapril Maleate (Vasotec) 10 mg PO DAILY [facility] Last Admin: 03/28/17 11:02 Dose: 10 mg Epoetin Kyle (Procrit) 10,000 unit IV TTS [facility] Stop: 03/30/17 10:01 Last Admin: 03/28/17 16:42 Dose: 10,000 unit Heparin Sodium (Porcine) (Heparin) 3,300 units IVP TTS [facility] Stop: 04/01/17 10:01 Last Admin: 03/28/17 16:45 Dose: 3,300 units Hydralazine HCl (Apresoline) 25 mg PO Q8 [facility] Last Admin: 03/28/17 14:09 Dose: Not Given Hydrocortisone (Anusol-Hc) 25 mg RC BID [facility] Last Admin: 03/28/17 18:28 Dose: 25 mg Heparin Sodium/Sodium Chloride (Heparin 22725 Units/250ml 1/2 Normal Saline) 25 ,000 units in 250 mls @ 10.44 mls/hr IV .[id number] PRN; Protocol PRN Reason: ADJUST RATE PER PROTOCOL Last Admin: 03/28/17 15:05 Dose: 12 units/kg/hr, 10.483 mls/hr Multivitamins (Hexavitamin) 1 tab PO DAILY [facility] Last Admin: 03/28/17 09:13 Dose: 1 tab Pantoprazole Sodium (Protonix Ec Tab) 40 mg PO DAILY [facility] Last Admin: 03/28/17 09:14 Dose: 40 mg Paricalcitol (Zemplar) 2 mcg IV TTS [facility] Stop: 04/01/17 10:01 Last Admin: 03/28/17 16:43 Dose: 2 mcg Saccharomyces Boulardii (Florastor) 250 mg PO BID [facility] Last Admin: 03/28/17 18:28 Dose: 250 mg Tamsulosin HCl (Flomax) 0.4 mg PO BID [facility] Last Admin: 03/28/17 18:28 Dose: 0.4 mg Vancomycin HCl (Vancocin (Oral Or Rectal Use)) 250 mg PO Q6H [facility] Last Admin: 03/28/17 18:28 Dose: 250 mg - Labs Labs: 03/28/17 07:17 03/28/17 07:17 PT 20.2 SECONDS (9.7-12.2) H 03/28/17 07:17 INR 1.8 03/28/17 07:17 APTT 66 SECONDS (21-34) H D 03/28/17 07:17 - Constitutional Appears: No Acute Distress, Chronically Ill - Eye Exam Eye Exam: EOMI, Normal appearance, PERRL Pupil Exam: NORMAL ACCOMODATION, PERRL - Respiratory Exam Respiratory Exam: Decreased Breath Sounds, Rales - Cardiovascular Exam Cardiovascular Exam: REGULAR RHYTHM, +S1, +S2. absent: Murmur - GI/Abdominal Exam GI & Abdominal Exam: Soft, Normal Bowel Sounds. absent: Tenderness Assessment and Plan (1) Abdominal tenderness, LLQ (left lower quadrant) Status: Acute (2) Acute diarrhea Status: Acute (3) C. difficile diarrhea Status: Acute (4) CKD (chronic kidney disease) Status: Acute (5) Complicated urinary tract infection Status: Acute (6) Shortness of breath Status: Acute (7) Urinary retention Status: Acute (8) Pulmonary embolism Status: Acute
[2017-03-29] MEDS: Vancomycin 125 MG/5 ML SOLN (ORAL/RECTAL) PO SCH ×3 (00:11→12:25)
[2017-03-29 08:19] LABS: INR 2.1
[2017-03-29] MEDS: Multiple Vitamins Tab PO SCH (10:29)
[2017-03-29] MEDS: Pantoprazole 40 mg EC Tab PO SCH (10:29)
[2017-03-29] MEDS: Saccharomyces Boulardi 250 mg Cap PO SCH (10:30)
--- NOTE | 2017-03-29 10:56 | VASCLAB ---
PROCEDURE: Upper Extremity Venous Duplex Exam HISTORY: Leg swelling PRIORS: None. TECHNIQUE: Bilateral upper extremity, internal jugular, subclavian, axillary, brachial, ulnar, radial, basilic and upper cephalic veins were evaluated. Flow was assessed with color Doppler, compressibility, assessment of phasic flow and augmentation response. Report prepared by RONAL Molina FINDINGS: RIGHT: 1. Internal Jugular: 1.1. Compressibility - Fully compressible: Thrombus - None : Flow - Phasic: Augmentation -Normal: Reflux - None. 2. Subclavian: 2.1. Unable to examine. Lines and dressing in area. 3. Axillary: 3.1. Compressibility - Fully compressible: Thrombus - None : Flow - Phasic: Augmentation -Normal: Reflux - None. 4. Brachial: 4.1. Compressibility - Fully compressible: Thrombus - None: Flow - Phasic: Augmentation -Normal: Reflux - None. 5. Ulnar: 5.1. Compressibility - Fully compressible: Thrombus - None: Flow - Phasic: Augmentation -Normal: Reflux - None. 6. Radial: 6.1. Compressibility - Fully compressible: Thrombus - None: Flow - Phasic: Augmentation - Normal: Reflux - None. 7. Cephalic: 7.1. Compressibility - Fully compressible: Thrombus - None: Flow - Phasic: Augmentation -Normal: Reflux - None. 8. Basilic: 8.1. Compressibility - Fully compressible: Thrombus - None: Flow - Phasic: Augmentation -Normal: Reflux - None. LEFT: 1. Internal Jugular: 1.1. Compressibility - Fully compressible: Thrombus - None : Flow - Phasic: Augmentation -Normal: Reflux - None. 2. Subclavian: 2.1. Compressibility - Fully compressible: Thrombus - None : Flow - Phasic: Augmentation -Normal: Reflux - None. 3. Axillary: 3.1. Compressibility - Fully compressible: Thrombus - None : Flow - Phasic: Augmentation -Normal: Reflux - None. 4. Brachial: 4.1. Compressibility - Fully compressible: Thrombus - None: Flow - Phasic: Augmentation -Normal: Reflux - None. 5. Ulnar: 5.1. Compressibility - Fully compressible: Thrombus - None: Flow - Phasic: Augmentation -Normal: Reflux - None. 6. Radial: 6.1. Compressibility - Fully compressible: Thrombus - None: Flow - Phasic: Augmentation - Normal: Reflux - None. 7. Cephalic: 7.1. Compressibility - Fully compressible: Thrombus - None: Flow - Phasic: Augmentation -Normal: Reflux - None. 8. Basilic: 8.1. Compressibility - Fully compressible: Thrombus - None: Flow - Phasic: Augmentation -Normal: Reflux - None. OTHER FINDINGS: Right: None. Left: None. IMPRESSION: Right: No evidence of vein thrombosis of the right upper extremity with excellent venous flow, for the imaged veins. Normal valve function noted of the right side. Left: No evidence of vein thrombosis of the left upper extremity with excellent venous flow. Normal valve function noted of the left side.
--- NOTE | 2017-03-29 12:26 | CP.PCM.PN ---
Subjective - Date & Time of Evaluation Date of Evaluation: 03/29/17 Time of Evaluation: 12:24 - Subjective Subjective: ok.no chest pains,sob.inr 2.1 Objective - Vital Signs/Intake and Output Vital Signs (last 24 hours): Temp Pulse Resp BP Pulse Ox 97.6 F 99 H 20 118/74 95 03/29/17 09:05 03/29/17 10:28 03/29/17 09:05 03/29/17 10:30 03/29/17 09:05 Intake and Output: 03/29/17 03/29/17 06:59 18:59 Intake Total 250 Output Total 1000 400 Balance -1000 -150 - Medications Medications: Current Medications Acetaminophen (Tylenol 325mg Tab) 650 mg PO Q4H PRN PRN Reason: Fever >100.4 F Last Admin: 03/28/17 09:14 Dose: 650 mg Allopurinol (Zyloprim) 100 mg PO DAILY [facility] Last Admin: 03/29/17 10:29 Dose: 100 mg Enalapril Maleate (Vasotec) 10 mg PO DAILY [facility] Last Admin: 03/29/17 10:30 Dose: 10 mg Epoetin Kyle (Procrit) 10,000 unit IV TTS [facility] Stop: 03/30/17 10:01 Last Admin: 03/28/17 16:42 Dose: 10,000 unit Heparin Sodium (Porcine) (Heparin) 3,300 units IVP TTS [facility] Stop: 04/01/17 10:01 Last Admin: 03/28/17 16:45 Dose: 3,300 units Hydralazine HCl (Apresoline) 25 mg PO Q8 [facility] Last Admin: 03/29/17 06:22 Dose: 25 mg Hydrocortisone (Anusol-Hc) 25 mg RC BID [facility] Last Admin: 03/29/17 10:32 Dose: Not Given Multivitamins (Hexavitamin) 1 tab PO DAILY [facility] Last Admin: 03/29/17 10:29 Dose: 1 tab Pantoprazole Sodium (Protonix Ec Tab) 40 mg PO DAILY [facility] Last Admin: 03/29/17 10:29 Dose: 40 mg Paricalcitol (Zemplar) 2 mcg IV TTS [facility] Stop: 04/01/17 10:01 Last Admin: 03/28/17 16:43 Dose: 2 mcg Saccharomyces Boulardii (Florastor) 250 mg PO BID [facility] Last Admin: 03/29/17 10:30 Dose: 250 mg Tamsulosin HCl (Flomax) 0.4 mg PO BID [facility] Last Admin: 03/29/17 10:29 Dose: 0.4 mg Vancomycin HCl (Vancocin (Oral Or Rectal Use)) 250 mg PO Q6H [facility] Last Admin: 03/29/17 06:23 Dose: 250 mg - Labs Labs: 03/28/17 07:17 03/28/17 07:17 PT 24.7 SECONDS (9.7-12.2) H 03/29/17 08:07 INR 2.1 03/29/17 08:07 APTT 67 SECONDS (21-34) H 03/29/17 09:01 - Constitutional Appears: No Acute Distress, Chronically Ill - Head Exam Head Exam: NORMOCEPHALIC - Respiratory Exam Respiratory Exam: Clear to Ausculation Bilateral - Cardiovascular Exam Cardiovascular Exam: REGULAR RHYTHM - GI/Abdominal Exam GI & Abdominal Exam: Soft - Extremities Exam Extremities Exam: absent: Pedal Edema - Neurological Exam Neurological Exam: Alert, Oriented x3 Assessment and Plan - Assessment and Plan (Free Text) Assessment: [email or web address] inr is 2.1,stable cardiac castañeda to be d/c home.will f/u in officw 2 weeks.inr in 3 days.
--- NOTE | 2017-03-29 12:41 | CP.PCM.PN ---
Subjective - Date & Time of Evaluation Date of Evaluation: 03/29/17 Time of Evaluation: 12:00 - Subjective Subjective: Patient seen today, awake, alert, ox3, denies any chest pain, sob, abdominal pain, N/V/d , c/o generalized weakness oob to chair today INR today 2.1 - and heparin drip d/c'd No overnight events reported by RN Objective - Vital Signs/Intake and Output Vital Signs (last 24 hours): Temp Pulse Resp BP Pulse Ox 97.6 F 109 H 20 118/74 99 03/29/17 09:05 03/29/17 12:28 03/29/17 09:05 03/29/17 10:30 03/29/17 12:28 Intake and Output: 03/29/17 03/29/17 06:59 18:59 Intake Total 250 Output Total 1000 400 Balance -1000 -150 - Medications Medications: Current Medications Acetaminophen (Tylenol 325mg Tab) 650 mg PO Q4H PRN PRN Reason: Fever >100.4 F Last Admin: 03/28/17 09:14 Dose: 650 mg Allopurinol (Zyloprim) 100 mg PO DAILY [facility] Last Admin: 03/29/17 10:29 Dose: 100 mg Enalapril Maleate (Vasotec) 10 mg PO DAILY [facility] Last Admin: 03/29/17 10:30 Dose: 10 mg Epoetin Kyle (Procrit) 10,000 unit IV TTS [facility] Stop: 03/30/17 10:01 Last Admin: 03/28/17 16:42 Dose: 10,000 unit Heparin Sodium (Porcine) (Heparin) 3,300 units IVP TTS [facility] Stop: 04/01/17 10:01 Last Admin: 03/28/17 16:45 Dose: 3,300 units Hydralazine HCl (Apresoline) 25 mg PO Q8 [facility] Last Admin: 03/29/17 06:22 Dose: 25 mg Hydrocortisone (Anusol-Hc) 25 mg RC BID [facility] Last Admin: 03/29/17 10:32 Dose: Not Given Multivitamins (Hexavitamin) 1 tab PO DAILY [facility] Last Admin: 03/29/17 10:29 Dose: 1 tab Pantoprazole Sodium (Protonix Ec Tab) 40 mg PO DAILY [facility] Last Admin: 03/29/17 10:29 Dose: 40 mg Paricalcitol (Zemplar) 2 mcg IV TTS [facility] Stop: 04/01/17 10:01 Last Admin: 03/28/17 16:43 Dose: 2 mcg Saccharomyces Boulardii (Florastor) 250 mg PO BID [facility] Last Admin: 03/29/17 10:30 Dose: 250 mg Tamsulosin HCl (Flomax) 0.4 mg PO BID [facility] Last Admin: 03/29/17 10:29 Dose: 0.4 mg Vancomycin HCl (Vancocin (Oral Or Rectal Use)) 250 mg PO Q6H [facility] Last Admin: 03/29/17 06:23 Dose: 250 mg - Labs Labs: 03/28/17 07:17 03/28/17 07:17 PT 24.7 SECONDS (9.7-12.2) H 03/29/17 08:07 INR 2.1 03/29/17 08:07 APTT 67 SECONDS (21-34) H 03/29/17 09:01 - Constitutional Appears: Well, No Acute Distress - Respiratory Exam Respiratory Exam: Clear to Ausculation Bilateral, NORMAL BREATHING PATTERN - Cardiovascular Exam Cardiovascular Exam: Tachycardia, REGULAR RHYTHM, +S1, +S2 - Neurological Exam Neurological Exam: Alert, Awake, Oriented x3 Assessment and Plan - Assessment and Plan (Free Text) Assessment: A/P 76 yr old male with PMHX of HTN, Hypercholesterolemia, ESRD on HD admitted for c- dif positive on vancomycin + PE AND on heparin drip and bridge with coumadin , today INR today 2.1 and heparin drip discontinued seen by Dr. holland today , cleared for discharge home today from cardiology standpoint and f/u with his office in [address] Melo today, cleared for discharge home today from Pulmonary stand point D/W with Dr. Kelsey laureano for discharge home today discharge plan discussed with patient who understands and agrees with plan will give coumadin 5 mg po today all RX e prescribed to patient pharmacy VNA service arranged for home PT and prescription for pt/INR with HD q 3 days faxed to HD center by BRANDIE
--- NOTE | 2017-03-29 14:42 | CP.PCM.PN ---
Subjective - Date & Time of Evaluation Date of Evaluation: 03/29/17 Time of Evaluation: 11:00 - Subjective Subjective: Patient seen and examined. Lying comfortably in no acute distress No shortness of breath No diarrhea On Coumadin Therapeutic INR Continue with hemodialysis Monitor INR Objective - Vital Signs/Intake and Output Vital Signs (last 24 hours): Temp Pulse Resp BP Pulse Ox 97.6 F 98 H 20 140/65 99 03/29/17 09:05 03/29/17 13:32 03/29/17 09:05 03/29/17 13:32 03/29/17 12:28 Intake and Output: 03/29/17 03/29/17 06:59 18:59 Intake Total 250 Output Total 1000 400 Balance -1000 -150 - Medications Medications: Current Medications Acetaminophen (Tylenol 325mg Tab) 650 mg PO Q4H PRN PRN Reason: Fever >100.4 F Last Admin: 03/28/17 09:14 Dose: 650 mg Allopurinol (Zyloprim) 100 mg PO DAILY [facility] Last Admin: 03/29/17 10:29 Dose: 100 mg Enalapril Maleate (Vasotec) 10 mg PO DAILY [facility] Last Admin: 03/29/17 10:30 Dose: 10 mg Epoetin Kyle (Procrit) 10,000 unit IV TTS [facility] Stop: 03/30/17 10:01 Last Admin: 03/28/17 16:42 Dose: 10,000 unit Heparin Sodium (Porcine) (Heparin) 3,300 units IVP TTS [facility] Stop: 04/01/17 10:01 Last Admin: 03/28/17 16:45 Dose: 3,300 units Hydralazine HCl (Apresoline) 25 mg PO Q8 [facility] Last Admin: 03/29/17 13:33 Dose: 25 mg Hydrocortisone (Anusol-Hc) 25 mg RC BID [facility] Last Admin: 03/29/17 10:32 Dose: Not Given Multivitamins (Hexavitamin) 1 tab PO DAILY [facility] Last Admin: 03/29/17 10:29 Dose: 1 tab Pantoprazole Sodium (Protonix Ec Tab) 40 mg PO DAILY [facility] Last Admin: 03/29/17 10:29 Dose: 40 mg Paricalcitol (Zemplar) 2 mcg IV TTS [facility] Stop: 04/01/17 10:01 Last Admin: 03/28/17 16:43 Dose: 2 mcg Saccharomyces Boulardii (Florastor) 250 mg PO BID [facility] Last Admin: 03/29/17 10:30 Dose: 250 mg Tamsulosin HCl (Flomax) 0.4 mg PO BID [facility] Last Admin: 03/29/17 10:29 Dose: 0.4 mg Vancomycin HCl (Vancocin (Oral Or Rectal Use)) 250 mg PO Q6H [facility] Last Admin: 03/29/17 12:25 Dose: 250 mg Warfarin Sodium (Coumadin) 5 mg PO ONCE ONE Stop: 03/29/17 18:01 - Labs Labs: 03/28/17 07:17 03/28/17 07:17 PT 24.7 SECONDS (9.7-12.2) H 03/29/17 08:07 INR 2.1 03/29/17 08:07 APTT 67 SECONDS (21-34) H 03/29/17 09:01 Assessment and Plan (1) Pulmonary embolism Status: Acute (2) C. difficile diarrhea Status: Acute (3) CKD (chronic kidney disease) Status: Acute
[2017-03-29 17:08] VITALS: BP 143/73; PULSE 90; TEMP 97.7; O2SAT 97
--- NOTE | 2017-03-29 23:27 | CP.PCM.DIS ---
Provider - Provider Date of Admission: 03/12/17 12:32 Attending physician: Yeison Cole MD Time Spent in preparation of Discharge (in minutes): 45 Diagnosis - Discharge Diagnosis (1) Abdominal tenderness, LLQ (left lower quadrant) Status: Acute (2) Acute diarrhea Status: Acute (3) C. difficile diarrhea Status: Acute (4) CKD (chronic kidney disease) Status: Acute (5) Complicated urinary tract infection Status: Acute (6) Shortness of breath Status: Acute (7) Urinary retention Status: Acute (8) Pulmonary embolism Status: Acute Hospital Course - Lab Results Lab Results: Micro Results 03/20/17 03:18 Stool Stool Culture - Final NO SALMONELLA, SHIGELLA OR CAMPYLOBACTER ISOLATED. 03/17/17 06:00 Stool Stool Culture - Final NO SALMONELLA, SHIGELLA OR CAMPYLOBACTER ISOLATED. 03/17/17 06:00 Urine,Garay Urine Culture - Final No Growth (<1,000 CFU/ML) 03/16/17 06:00 Stool Stool Culture - Final NO SALMONELLA, SHIGELLA OR CAMPYLOBACTER ISOLATED. 03/11/17 16:59 Stool Stool Culture - Final NO SALMONELLA, SHIGELLA OR CAMPYLOBACTER ISOLATED. Most Recent Lab Values WBC 7.2 K/uL (4.8-10.8) 03/28/17 07:17 RBC 3.45 Mil/uL (4.40-5.90) L 03/28/17 07:17 Hgb 10.3 g/dL (12.0-18.0) L 03/28/17 07:17 Hct 31.6 % (35.0-51.0) L 03/28/17 07:17 MCV 91.5 fL (80.0-94.0) 03/28/17 07:17 MCH 29.9 pg (27.0-31.0) 03/28/17 07:17 MCHC 32.7 g/dL (33.0-37.0) L 03/28/17 07:17 RDW 19.9 % (11.5-14.5) H 03/28/17 07:17 Plt Count 341 K/uL (130-400) 03/28/17 07:17 MPV 7.0 fL (7.2-11.7) L 03/28/17 07:17 Neut % (Auto) 76.5 % (50.0-75.0) H 03/22/17 05:14 Lymph % (Auto) 13.6 % (20.0-40.0) L 03/22/17 05:14 [place] % (Auto) 7.6 % (0.0-10.0) 03/22/17 05:14 Eos % (Auto) 1.8 % (0.0-4.0) 03/22/17 05:14 Baso % (Auto) 0.5 % (0.0-2.0) 03/22/17 05:14 Neut # 5.8 K/uL (1.8-7.0) 03/22/17 05:14 Lymph # 1.0 K/uL (1.0-4.3) 03/22/17 05:14 [place] # 0.6 K/uL (0.0-0.8) 03/22/17 05:14 Eos # 0.1 K/uL (0.0-0.7) 03/22/17 05:14 Baso # 0.0 K/uL (0.0-0.2) 03/22/17 05:14 Neutrophils % (Manual) 87 % (50-75) H 03/12/17 07:54 Band Neutrophils % 1 % (0-2) 03/12/17 07:54 Lymphocytes % (Manual) 7 % (20-40) L 03/12/17 07:54 Monocytes % (Manual) 5 % (0-10) 03/12/17 07:54 Platelet Estimate Normal (NORMAL) 03/12/17 07:54 Large Platelets Present 03/11/17 17:07 Polychromasia Slight 03/11/17 17:07 Hypochromasia (manual) Slight 03/12/17 07:54 Anisocytosis (manual) Slight 03/12/17 07:54 Microcytosis (manual) Slight 03/11/17 17:07 Macrocytosis (manual) Slight 03/11/17 17:07 PT 24.7 SECONDS (9.7-12.2) H 03/29/17 08:07 INR 2.1 03/29/17 08:07 APTT 67 SECONDS (21-34) H 03/29/17 09:01 D-Dimer, Quantitative 749 ng/mlDDU (0-243) H 03/22/17 15:45 Puncture Site Rr 03/22/17 05:09 pCO2 30 mm/Hg (35-45) L 03/22/17 05:09 pO2 131 mm/Hg (80-100) H 03/22/17 05:09 HCO3 22.9 mmol/L (21-28) 03/22/17 05:09 ABG pH 7.45 (7.35-7.45) 03/22/17 05:09 ABG Total CO2 21.8 mmol/L (22-28) L 03/22/17 05:09 ABG O2 Saturation 100.0 % (95-98) H 03/22/17 05:09 ABG Base Excess -2.6 mmol/L (-2.0-3.0) L 03/22/17 05:09 ABG Hemoglobin 7.7 g/dL (11.7-17.4) L 03/22/17 05:09 ABG Carboxyhemoglobin 2.2 % (0.5-1.5) H 03/22/17 05:09 POC ABG HHb (Measured) 0.0 % (0.0-5.0) 03/22/17 05:09 ABG Methemoglobin 1.1 % (0.0-3.0) 03/22/17 05:09 Dejan Test Po 03/22/17 05:09 A-a O2 Difference 31.0 mm/Hg 03/22/17 05:09 Respiratory Index 0.2 03/22/17 05:09 Hgb O2 Saturation 96.8 % (95.0-98.0) 03/22/17 05:09 Liter Flow 2.0 03/22/17 05:09 FiO2 28.0 % 03/22/17 05:09 Sodium 131 mmol/L (132-148) L 03/28/17 07:17 Potassium 4.0 mmol/L (3.6-5.2) 03/28/17 07:17 Chloride 100 mmol/L (98-107) 03/28/17 07:17 Carbon Dioxide 27 mmol/L (22-30) 03/28/17 07:17 Anion Gap 8 (10-20) L 03/28/17 07:17 BUN 21 mg/dL (9-20) H 03/28/17 07:17 Creatinine 4.6 mg/dL (0.8-1.5) H 03/28/17 07:17 Est GFR ( Amer) 15 03/28/17 07:17 Est GFR (Non-Af Amer) 12 03/28/17 07:17 POC Glucose (mg/dL) 117 mg/dL (65-110) H 03/29/17 16:03 Random Glucose 83 mg/dL (75-110) 03/28/17 07:17 Calcium 7.9 mg/dl (8.6-10.4) L 03/28/17 07:17 Phosphorus 3.6 mg/dL (2.5-4.5) 03/20/17 07:35 Magnesium 1.5 mg/dL (1.6-2.3) L 03/15/17 07:25 Total Bilirubin 0.3 mg/dL (0.2-1.3) 03/24/17 15:07 AST 13 U/L (17-59) L D 03/24/17 15:07 ALT 25 U/L (21-72) 03/24/17 15:07 Alkaline Phosphatase 67 U/L (38-126) 03/24/17 15:07 Total Creatine Kinase < 20 U/L (55-170) L 03/22/17 17:56 CK-MB (Mass) 0.83 ng/mL (0.0-3.38) 03/22/17 17:56 Troponin I 0.0370 ng/mL (0.00-0.120) 03/22/17 17:56 Total Protein 6.4 g/dL (6.3-8.3) 03/24/17 15:07 Albumin 2.6 g/dL (3.5-5.0) L 03/24/17 15:07 Globulin 3.8 gm/dL (2.2-3.9) 03/24/17 15:07 Albumin/Globulin Ratio 0.7 (1.0-2.1) L 03/24/17 15:07 Triglycerides 68 mg/dL (0-149) 03/20/17 07:35 Cholesterol 121 mg/dL (0-199) 03/20/17 07:35 LDL Cholesterol Direct 36 mg/dL (0-129) 03/20/17 07:35 HDL Cholesterol 52 mg/dL (30-70) 03/20/17 07:35 Prostate Specific Ag 1.05 ng/mL (0.00-4.0) 03/20/17 07:35 Urine Color Yellow (YELLOW) 03/17/17 20:00 Urine Clarity Hazy (Clear) 03/17/17 20:00 Urine pH 7.0 (5.0-8.0) 03/17/17 20:00 Ur Specific Ace 1.005 (1.003-1.030) 03/17/17 20:00 Urine Protein 2+ mg/dL (NEGATIVE) H 03/17/17 20:00 Urine Glucose (UA) Normal mg/dL (Normal) 03/17/17 20:00 Urine Ketones Negative mg/dL (NEGATIVE) 03/17/17 20:00 Urine Blood 1+ (NEGATIVE) H 03/17/17 20:00 Urine Nitrate Negative (NEGATIVE) 03/17/17 20:00 Urine Bilirubin Negative (NEGATIVE) 03/17/17 20:00 Urine Urobilinogen Normal mg/dL (0.2-1.0) 03/17/17 20:00 Ur Leukocyte Esterase 3+ Alpa/uL (Negative) H 03/17/17 20:00 Urine WBC (Auto) 364 /hpf (0-5) H 03/17/17 20:00 Urine RBC (Auto) 4 /hpf (0-3) H 03/17/17 20:00 Urine WBC Clumps (Auto) Few /hpf (NONE) H 03/17/17 20:00 Ur Squamous Epith Cells < 1 /hpf (0-5) 03/17/17 20:00 Urine Bacteria Many (<OCC) H 03/17/17 20:00 Stool Occult Blood Negative (NEGATIVE) 03/13/17 20:49 Stool Leukocytes, Qual Positive (NEGATIVE) H 03/12/17 21:30 C. difficile Tox B Gene Detected (Not Detected) H 03/13/17 08:52 C. difficile Ag & Toxin Negative (NEGATIVE) 03/26/17 14:13 Hep Bs Antigen Negative (NEGATIVE) 03/13/17 19:44 - Hospital Course Hospital Course: A/P 76 yr old male with PMHX of HTN, Hypercholesterolemia, ESRD on HD admitted for c- dif positive on vancomycin + PE AND on heparin drip and bridge with coumadin , today INR today 2.1 and heparin drip discontinued seen by Dr. comer today , cleared for discharge home today from cardiology standpoint and f/u with his office in [address] Melo today, cleared for discharge home today from Pulmonary stand point stable for discharge home today discharge plan discussed with patient who understands and agrees with plan will give coumadin 5 mg po today all RX e prescribed to patient pharmacy VNA service arranged for home PT and prescription for pt/INR with HD q 3 days faxed to HD center by SW Discharge Exam - Head Exam Head Exam: NORMOCEPHALIC - Eye Exam Eye Exam: Normal appearance - ENT Exam ENT Exam: Mucous Membranes Moist - Respiratory Exam Respiratory Exam: Decreased Breath Sounds, Rales - Cardiovascular Exam Cardiovascular Exam: REGULAR RHYTHM, +S1, +S2 - GI/Abdominal Exam GI & Abdominal Exam: Normal Bowel Sounds - Neurological Exam Neurological exam: Alert, CN II-XII Intact, Normal Gait, Oriented x3, Reflexes Normal Discharge Plan - Discharge Medications Prescriptions: hydrALAZINE [Apresoline] 25 mg PO DAILY #30 tab Warfarin [Coumadin] 5 mg PO 1800 #10 tab Tamsulosin [Flomax] 0.4 mg PO BID #60 cap Furosemide [Lasix] 20 mg PO DAILY #30 tab Gemfibrozil [Lopid] 600 mg PO HS #30 tab Esomeprazole Magnesium [Nexium] 40 mg PO BID #30 capsule. Finasteride [Proscar] 1 tab PO DAILY #30 tab Enalapril Maleate [Vasotec] 10 mg PO DAILY #30 tab Allopurinol [Zyloprim] 100 mg PO DAILY #30 tab - Follow Up Plan Condition: STABLE Disposition: HOME/ ROUTINE Instructions: Allopurinol (By mouth), Enalapril (By mouth), Furosemide (By mouth), Gemfibrozil (By mouth), Warfarin (By mouth), Finasteride (By mouth), Hydralazine (By mouth), Tamsulosin (By mouth), Esomeprazole (By mouth), Pulmonary Embolism (DC), Chronic Kidney Disease (DC), Dialysis Diet (DC), Clostridium Difficile Infection (DC) Additional Instructions: Please follow up with Dr. comer in his office in 2 weeks PLEASE F/U WITH DR. JAMES OFFICE, CALL AND MAKE APPOINTMENT , KEEP F/C IN UNTIL SEEN Y JACOB ROMERO Continue Dialysis as scheduled: Monday, , Monday Please resume VNA service for Home PT/ COUMADIN MANAGEMENT (PE) Please do PT/INR (blood coagulation labs) for 3days and fax the results to Dr. Comer's office - (you can do this at the dialysis center) for adjustment of your Coumadin PLEASE INSURANCE AND BENEFITS CLERK MEDICATION FROM [facility] Referrals: Yeison Cole MD [Staff Provider] - Rigo Comer MD [Staff Provider] - 2 Weeks
== END 2017-03-29 17:00 | disposition home health service (06) | DRG 371 ==
LOC: C.ER 15:14 → C.9E 17:42 → C.5S 23:15 → OBSVTOIN 03-12 12:32
PROVIDERS: ADMIT Internal Medicine; ATTEND Internal Medicine
PROC: 5A1D70Z Performance of Urinary Filtration, Intermittent, Less than 6 Hours Per Day (ICD-10-PCS; principal; 2017-03-13)
DX: A04.72 Enterocolitis due to Clostridium difficile, not specified as recurrent (principal); I26.99 Other pulmonary embolism without acute cor pulmonale; I13.2 Hypertensive heart and chronic kidney disease with heart failure and with stage 5 chronic kidney disease, or end stage renal disease; J18.9 Pneumonia, unspecified organism; N17.9 Acute kidney failure, unspecified; E11.22 Type 2 diabetes mellitus with diabetic chronic kidney disease; I50.9 Heart failure, unspecified; N18.6 End stage renal disease; E87.1 Hypo-osmolality and hyponatremia; N39.0 Urinary tract infection, site not specified; D63.1 Anemia in chronic kidney disease; E66.9 Obesity, unspecified; E78.00 Pure hypercholesterolemia, unspecified; K57.90 Diverticulosis of intestine, part unspecified, without perforation or abscess without bleeding; K59.00 Constipation, unspecified; M10.9 Gout, unspecified; N40.1 Benign prostatic hyperplasia with lower urinary tract symptoms; R32 Unspecified urinary incontinence; R79.1 Abnormal coagulation profile; Z79.01 Long term (current) use of anticoagulants; Z82.49 Family history of ischemic heart disease and other diseases of the circulatory system; Z83.3 Family history of diabetes mellitus; Z87.440 Personal history of urinary (tract) infections; Z87.891 Personal history of nicotine dependence; Z99.2 Dependence on renal dialysis; R39.12 Poor urinary stream; R63.0 Anorexia

== ENCOUNTER 2017-04-07 11:16 | Emergency (ER) | payer MEDICARE ==
[2017-04-07 11:23] VITALS: BMI 29.9
[2017-04-07 11:51] VITALS: TEMP 98.2
[2017-04-07] MEDS ORDERED: Sodium Chloride 0.9% 1,000 ML IV ONE (11:52)
[2017-04-07] MEDS ORDERED: Iohexol 240 (50 ml) PO STA (11:52)
--- NOTE | 2017-04-07 11:52 | C.PDOC ---
History Of Present Illness Patient is a 76 y/o male who presents to the ED with a complaint of diarrhea for the last month. Patient was previously admitted on 03/12 for similar symptoms and discharged on 03/29. Patient's admits the patient had 11 episodes of diarrhea last night and describes stool as extremely soft, denying any blood. The patient denies nausea or abdominal pain. Patient is on dialysis and last dialysis was yesterday. Patient had pierre bag last changed last Monday upon discharge. Patient's reports unable to see urologist Dr. Montoya. No other physical complaints at this time. Time Seen by Provider: 04/07/17 11:39 Chief Complaint (Nursing): GI Problem History Per: Patient, Family () History/Exam Limitations: no limitations Onset/Duration Of Symptoms: Days (episodes began last night) Current Symptoms Are (Timing): Still Present Recent travel outside of the [place]: No Additional History Per: Prior Records Past Medical History Reviewed: Historical Data, Nursing Documentation, Vital Signs Vital Signs: Last Vital Signs Temp 98.2 F 04/07/17 11:46 Pulse 96 H 04/07/17 15:36 Resp 24 04/07/17 15:36 BP 138/84 04/07/17 15:36 Pulse Ox 97 04/07/17 16:42 - Medical History PMH: Anemia, CHF, Diverticulitis (Diverticulosis by colonoscopy 10/2016), Gastritis, Gastrointestinal Ulcer, HTN, Hypercholesterolemia, Hyperlipidemia, Pneumonia, End Stage Renal Disease, Chronic Kidney Disease Surgical History: Appendectomy - [facility] (03/12/17) EXCISION OF DUODENUM, ENDO, DIAGN (10/03/16) EXCISION OF ESOPHAGUS, ENDO, DIAGN (10/03/16) EXCISION OF STOMACH, ENDO, DIAGN (10/03/16) EXCISION OF TOE NAIL, EXTERNAL APPROACH (07/15/16) INSERTION OF INFUSION DEV INTO R SUBCLAV VEIN, PERC APPROACH (12/29/16) INSPECTION OF LOWER INTESTINAL TRACT, ENDO (10/03/16) PERFORMANCE OF URINARY FILTRATION, MULTIPLE (12/29/16) TRANSFUSE NONAUT RED BLOOD CELLS IN PERIPH VEIN, PERC (10/03/16) Family History: States: Unknown Family Hx - Social History Hx Alcohol Use: No Hx Substance Use: No - Immunization History Hx Tetanus Toxoid Vaccination: Yes Hx Influenza Vaccination: Yes (2017) Hx Pneumococcal Vaccination: Yes (2017) Review Of Systems Constitutional: Negative for: Fever, Chills ENT: Negative for: Ear Pain, Nose Congestion, Throat Pain Cardiovascular: Negative for: Chest Pain, Palpitations Respiratory: Negative for: Cough, Shortness of Breath Gastrointestinal: Positive for: Diarrhea. Negative for: Nausea, Abdominal Pain Genitourinary: Negative for: Dysuria Skin: Negative for: Rash Neurological: Negative for: Weakness, Numbness, Headache, Dizziness Physical Exam - Physical Exam Appears: Well, Non-toxic, No Acute Distress Skin: Normal Color, Warm, Dry Head: Atraumatic, Normacephalic Eye(s): bilateral: Normal Inspection, EOMI Oral Mucosa: Moist Neck: Normal ROM Chest: Symmetrical Cardiovascular: Rhythm Regular, No Murmur Respiratory: Normal Breath Sounds, No Rales, No Rhonchi, No Wheezing Gastrointestinal/Abdominal: Soft, No Tenderness Extremity: Bilateral: Atraumatic, Normal Color And Temperature, Normal ROM Neurological/Psych: Oriented x3, Normal Speech, Other (no focal deficits) Gait: Steady ED Course And Treatment - Laboratory Results Result Diagrams: 04/07/17 12:12 04/07/17 12:12 Lab Interpretation: Abnormal O2 Sat by Pulse Oximetry: 97 Pulse Ox Interpretation: Normal - CT Scan/US A/P Other Rad Studies (CT/US): Read By Radiologist CT/US Interpretation: PROCEDURE: CT Abdomen and Pelvis without intravenous contrast. HISTORY: Abdominal pain and diarrhea. COMPARISON: 03/12/2017. TECHNIQUE: CT scan of the abdomen and pelvis was performed without administration of intravenous contrast. Oral contrast was not administered. Coronal and sagittal reformatted images were obtained.. Radiation dose: Total exam DLP = 2151.60 mGy-cm. This CT exam was performed using one or more of the following dose reduction techniques: Automated exposure control, adjustment of the mA and/or kV according to patient size, and/or use of iterative reconstruction technique. FINDINGS: LOWER THORAX: There is subsegmental atelectasis in the right lung base and linear atelectasis/scarring in the lingula. LIVER: Normal in size. No gross lesion or ductal dilatation. GALLBLADDER AND BILE DUCTS: There are multiple calcified gallstones. PANCREAS : Normal in size. No gross lesion or ductal dilatation. SPLEEN: Normal in size. ADRENALS: No discrete nodule. KIDNEYS AND URETERS: Renal cortical atrophy and nonspecific perinephric fat stranding. No nephrolithiasis or hydronephrosis. VASCULATURE: There are advanced atherosclerotic aortoiliac calcifications. No aortic aneurysm. BOWEL: The small bowel loops are normal in caliber. The colon is decompressed. There is apparent mild mural thickening in the mid and distal descending colon and sigmoid colon. . APPENDIX: The appendix is not distinctly identified. There are no inflammatory changes in the right lower quadrant. PERITONEUM: No free fluid. No free air. LYMPH NODES : No enlarged lymph nodes. BLADDER: The urinary bladder is partially decompressed and there is apparent moderate mural thickening of the bladder wall with perivesical fat stranding. REPRODUCTIVE: Unremarkable. BONES: No acute fracture. Multilevel degenerative disc disease. OTHER FINDINGS: None. IMPRESSION: 1. Evaluation of the bowel is limited in the absence of oral contrast. No evidence of bowel dilatation or obstruction. Apparent mild mural thickening in the left colon and sigmoid colon is nonspecific and could be related to underdistention however nonspecific colitis cannot be excluded. Clinical follow-up is advised. 2. Apparent moderate circumferential mural thickening in the bladder wall with mild perivesical fat stranding is is nonspecific and could be related to underdistention however cystitis cannot be excluded. Please correlate with urine analysis. - Physician Consult Information Time Consulting Physician Contacted: 14:30 Physician Contacted: Eli Montoya Outcome Of Conversation: Agreed to discontinue Pierre and have patient follow up next week. Patient should be discharged with antibiotics. Medical Decision Making Medical Decision Making: Plan: * CT A/P * Urinalysis * Stool and urine culture * blood work Progress: [id number] Rigo Comer who states patient is stable for discharge Spoke with family and the is asking to call their GI [id number] Guajardo who is covering for Dr. Truong, states he is unfamiliar with patient but will pass the message to Dr. Truong Disposition Counseled Patient/Family Regarding: Diagnosis, Need For Followup, Rx Given - Disposition Referrals: Eli Montoya MD [Staff Provider] - Disposition: HOME/ ROUTINE Disposition Time: 14:51 Condition: STABLE Additional Instructions: Please follow up with Dr montoya and Dr Comer in their office Take Flomax twice a day Take antibiotics Prescriptions: Ciprofloxacin [Cipro] 1 tab PO BID #14 tab Tamsulosin [Flomax] 0.4 mg PO BID #20 cap Instructions: Acute Diarrhea (ED) Forms: [facility] (Dominican) - POA Present On Arrival: None - Clinical Impression Clinical Impression: Diarrhea, Pierre catheter in place - Scribe Statement The provider has reviewed the documentation as recorded by the Scribe Carlotta Dior All medical record entries made by the Scribe were at my direction and personally dictated by me. I have reviewed the chart and agree that the record accurately reflects my personal performance of the history, physical exam, medical decision making, and the department course for this patient. I have also personally directed, reviewed, and agree with the discharge instructions and disposition.
[2017-04-07 12:18] LABS: BASO # 0.1 K/uL (0.0-0.2); BASO % 1.4 % (0.0-2.0); EOS # 0.1 K/uL (0.0-0.7); EOS % 2.7 % (0.0-4.0); HEMATOCRIT 32.7 % (35.0-51.0); LYMPH # 1.1 K/uL (1.0-4.3); MEAN CELL VOLUME 90.4 fL (80.0-94.0); MEAN CORPUSCULAR HEMOGLOBIN 29.8 pg (27.0-31.0); MEAN PLATELET VOLUME 6.6 fL (7.2-11.7); MONO # 0.6 K/uL (0.0-0.8); RED CELL DISTRIBUTION WIDTH 18.1 % (11.5-14.5); WHITE BLOOD COUNT 4.4 K/uL (4.8-10.8)
[2017-04-07] MEDS ORDERED: Sodium Chloride 0.9% 1,000 ML ONE (12:19)
[2017-04-07] MEDS ORDERED: Iohexol 240 (50 ml) ONE (12:19)
[2017-04-07 12:25] LABS: URINE BACTERIA RARE (<OCC); URINE BILIRUBIN NEGATIVE (NEGATIVE); URINE BLOOD NEGATIVE (NEGATIVE); URINE COLOR Straw (YELLOW); URINE GLUCOSE (UA) NORMAL (Normal); URINE KETONE NEGATIVE (NEGATIVE); URINE LEUKOCYTE ESTERASE NEG Leu/uL (Negative); URINE PROTEIN NEGATIVE (NEGATIVE); URINE UROBILINOGEN NORMAL mg/dL (0.2-1.0); WBC URINE 3 /hpf (0-5)
[2017-04-07 12:38] LABS: INR 1.1
[2017-04-07 12:42] LABS: ALB/GLOB RATIO 0.7 (1.0-2.1); BILIRUBIN,TOTAL 0.4 mg/dL (0.2-1.3); CALCIUM 7.8 mg/dl (8.6-10.4); POTASSIUM 3.1 mmol/L (3.6-5.2)
--- NOTE | 2017-04-07 13:36 | CT ---
PROCEDURE: CT Abdomen and Pelvis without intravenous contrast HISTORY: Abdominal pain and diarrhea COMPARISON: 03/12/2017. TECHNIQUE: CT scan of the abdomen and pelvis was performed without administration of intravenous contrast. Oral contrast was not administered. Coronal and sagittal reformatted images were obtained.. Radiation dose: Total exam DLP = 2151.60 mGy-cm. This CT exam was performed using one or more of the following dose reduction techniques: Automated exposure control, adjustment of the mA and/or kV according to patient size, and/or use of iterative reconstruction technique. FINDINGS: LOWER THORAX: There is subsegmental atelectasis in the right lung base and linear atelectasis/scarring in the lingula. LIVER: Normal in size. No gross lesion or ductal dilatation. GALLBLADDER AND BILE DUCTS: There are multiple calcified gallstones. PANCREAS: Normal in size. No gross lesion or ductal dilatation. SPLEEN: Normal in size. ADRENALS: No discrete nodule. KIDNEYS AND URETERS: Renal cortical atrophy and nonspecific perinephric fat stranding. No nephrolithiasis or hydronephrosis. VASCULATURE: There are advanced atherosclerotic aortoiliac calcifications. No aortic aneurysm. BOWEL: The small bowel loops are normal in caliber. The colon is decompressed. There is apparent mild mural thickening in the mid and distal descending colon and sigmoid colon. . APPENDIX: The appendix is not distinctly identified. There are no inflammatory changes in the right lower quadrant. PERITONEUM: No free fluid. No free air. LYMPH NODES: No enlarged lymph nodes. BLADDER: The urinary bladder is partially decompressed and there is apparent moderate mural thickening of the bladder wall with perivesical fat stranding. REPRODUCTIVE: Unremarkable. BONES: No acute fracture. Multilevel degenerative disc disease. OTHER FINDINGS: None. IMPRESSION: 1. Evaluation of the bowel is limited in the absence of oral contrast. No evidence of bowel dilatation or obstruction. Apparent mild mural thickening in the left colon and sigmoid colon is nonspecific and could be related to underdistention however nonspecific colitis cannot be excluded. Clinical follow-up is advised. 2. Apparent moderate circumferential mural thickening in the bladder wall with mild perivesical fat stranding is is nonspecific and could be related to underdistention however cystitis cannot be excluded. Please correlate with urine analysis.
[2017-04-07] MEDS ORDERED: Potassium Chloride 20 mEq ER Tab PO STA (13:56)
[2017-04-07 14:22] VITALS: BP 138/84
[2017-04-07] MEDS ORDERED: Potassium Chloride 20 mEq ER Tab PO ONE (14:46)
[2017-04-07 14:53] VITALS: O2SAT 97
[2017-04-07 15:37] VITALS: PULSE 96; RESP 24
== END 2017-04-07 16:47 | disposition home or self-care (01) ==
LOC: C.ER 11:16
DX: R19.7 Diarrhea, unspecified (principal); Z46.6 Encounter for fitting and adjustment of urinary device; E78.00 Pure hypercholesterolemia, unspecified; I13.2 Hypertensive heart and chronic kidney disease with heart failure and with stage 5 chronic kidney disease, or end stage renal disease; N18.6 End stage renal disease; I50.9 Heart failure, unspecified; Z99.2 Dependence on renal dialysis
CPT/HCPCS: 74176; 80053; 81001; 83605; 83690; 83880; 85025; 85610; 85730; 87086; 99285; J7040

== ENCOUNTER 2018-07-10 17:47 | Inpatient (IN) | payer MEDICARE ==
[2018-07-10 17:47] VITALS: BMI 29.9
[2018-07-10 19:35] LABS: BASO % 0.6 % (0.0-2.0); EOS % 0.5 % (0.0-4.0); HEMOGLOBIN 12.6 g/dL (12.0-18.0); LYMPH # 1.1 K/uL (1.0-4.3); LYMPH % 18.3 % (20.0-40.0); MEAN CELL VOLUME 93.4 fL (80.0-94.0); MEAN CORPUSCULAR HEMOGLOBIN 31.4 pg (27.0-31.0); MEAN CORPUSCULAR HGB CONC 33.6 g/dL (33.0-37.0); MONO # 0.5 K/uL (0.0-0.8); MONO % 8.1 % (0.0-10.0); NEUT # 4.3 K/uL (1.8-7.0); NEUT % 72.5 % (50.0-75.0); NRBC % 0.1 % (0.0-2.0); RBC 4.02 Mil/uL (4.40-5.90); RED CELL DISTRIBUTION WIDTH 15.6 % (11.5-14.5); WHITE BLOOD COUNT 5.9 K/uL (4.8-10.8)
[2018-07-10 19:51] LABS: CALCIUM 8.4 mg/dl (8.6-10.4)
--- NOTE | 2018-07-10 19:51 | C.PDOC ---
History Of Present Illness 77 year old male with Hx of ESRD on hemodialysis, last dialysis today presents with abdominal pain worsening since yesterday and improving cough. Patient has remote Hx of appendectomy. Denies fever or other complaints. Time Seen by Provider: 07/10/18 19:32 Chief Complaint (Nursing): Abdominal Pain History Per: Patient History/Exam Limitations: no limitations Onset/Duration Of Symptoms: Days Current Symptoms Are (Timing): Worse Location Of Pain/Discomfort: RUQ Quality Of Discomfort: Unable To Describe Associated Symptoms: denies: Fever, Nausea, Vomiting, Diarrhea Exacerbating Factors: None Alleviating Factors: None Recent travel outside of the [place]: No Past Medical History Reviewed: Historical Data, Nursing Documentation, Vital Signs Vital Signs: Last Vital Signs Temp 97.7 F 07/10/18 18:18 Pulse 117 H 07/10/18 18:18 Resp 20 07/10/18 18:18 BP 187/95 H 07/10/18 18:18 Pulse Ox 99 07/10/18 18:18 - Medical History PMH: Anemia, CHF, Diverticulitis (Diverticulosis by colonoscopy 10/2016), Gastritis, Gastrointestinal Ulcer, HTN, Hypercholesterolemia, Hyperlipidemia, Pneumonia, End Stage Renal Disease, Chronic Kidney Disease Denies: Crohn's Disease, Gall Bladder Disease, HIV, Pancreatitis Surgical History: Appendectomy - [facility] Procedures (03/12/17) EXCISION OF DUODENUM, ENDO, DIAGN (10/03/16) EXCISION OF ESOPHAGUS, ENDO, DIAGN (10/03/16) EXCISION OF STOMACH, ENDO, DIAGN (10/03/16) EXCISION OF TOE NAIL, EXTERNAL APPROACH (07/15/16) INSERTION OF INFUSION DEV INTO R SUBCLAV VEIN, PERC APPROACH (12/29/16) INSPECTION OF LOWER INTESTINAL TRACT, ENDO (10/03/16) PERFORMANCE OF URINARY FILTRATION, MULTIPLE (12/29/16) TRANSFUSE NONAUT RED BLOOD CELLS IN PERIPH VEIN, PERC (10/03/16) Family History: States: Unknown Family Hx - Social History Hx Alcohol Use: No Hx Substance Use: No - Immunization History Hx Tetanus Toxoid Vaccination: Yes Hx Influenza Vaccination: Yes (2017) Hx Pneumococcal Vaccination: Yes (2016) Review Of Systems Constitutional: Negative for: Fever, Chills Cardiovascular: Negative for: Chest Pain, Palpitations Respiratory: Positive for: Cough. Negative for: Shortness of Breath Gastrointestinal: Positive for: Abdominal Pain. Negative for: Nausea, Vomiting, Diarrhea Genitourinary: Negative for: Dysuria, Hematuria Neurological: Negative for: Weakness, Numbness Physical Exam - Physical Exam Appears: Non-toxic Skin: Normal Color, Warm Head: Atraumatic, Normacephalic Eye(s): bilateral: Normal Inspection Oral Mucosa: Moist Neck: Normal, Supple Chest: Symmetrical, No Tenderness Cardiovascular: Rhythm Regular Respiratory: Normal Breath Sounds, No Rales, No Rhonchi, No Wheezing Gastrointestinal/Abdominal: Soft, Tenderness (RUQ), No Guarding, No Rebound Back: No CVA Tenderness Neurological/Psych: Oriented x3, Normal Speech ED Course And Treatment - Laboratory Results Result Diagrams: 07/11/18 07:07 07/11/18 07:07 O2 Sat by Pulse Oximetry: 99 (Room air) Pulse Ox Interpretation: Normal - CT Scan/US Abdominal US Other Rad Studies (CT/US): Interpreted By Me, Read By Radiologist CT/US Interpretation: Name:AMERICO KING Exam Date:Jul 10, 2018 8:57:10 PM EDT. Modality Type:SD\US\SR. Description:US - ABDOMINAL COMPLETE. Gender:M Laterality:Not applicable. :38 Referring Physician:Javier Coles (). CLINICAL HISTORY: Abdominal pain. TECHNIQUE: Realtime sonographic images were obtained in multiple projections. COMMENTS: T he liver is of increased echogenicity without evidence of mass or defect measuring 13.77 cm. There is no intra or extrahepatic biliary ductal dilatation. The common bile duct measures 0.38 cm. The gallbladder shows gallstones. The gallbladder wall is not thickened measuring 0.18 cm and there is no pericholecystic fluid. There is no abdominal ascites. There is limited visualization of the aorta. There is limited visualization of the pancreas. The spleen is of uniform echo texture and does not appear enlarged measuring 9.01 cm. The right kidney measures 8.06 x 3.21 x 3.13 cm and the left kidney measures 8.45 x 4.5 x 4.92 cm. Both kidneys are free of hydronephrosis. Both kidneys are small and echogenic. IMPRESSION: 1. Fatty liver. 2. Cholelithiasis. 3. Both kidneys are small and echogenic compatible with medical renal disease. . Electronically signed on Jul 10, 2018 9:58:03 PM EDT by: Moo Christy M.D., GETACHEW Certified By ABR & CBC[facility]. Fellowship Trained MRI and CT Specialist Medical Decision Making Medical Decision Making: cough/ruq abd pain ro gallbalder pathology Plan: * Blood work * CXR * Abdominal US cxr (+)rll infiltarte, antibiotcis given. us with multiple gall stones. empric antibiotics given for pna, will cover gi. hemodynamically stable. h/h baseline. accepted dr xavier covering dr skyler maxwell stable at this time. defer further imaging eval to inpt team. Disposition - Disposition Disposition: HOSPITALIZED Disposition Time: 10:40 Condition: STABLE - Clinical Impression Clinical Impression: Pneumonia, Gallstone - Scribe Statement The provider has reviewed the documentation as recorded by the Scribe Fernandez Espinoza All medical record entries made by the Scribe were at my direction and personally dictated by me. I have reviewed the chart and agree that the record accurately reflects my personal performance of the history, physical exam, medical decision making, and the department course for this patient. I have also personally directed, reviewed, and agree with the discharge instructions and disposition. Decision To Admit - Pt Status Changed To: Hospital Disposition Of: Inpatient - Admit Certification Admit to Inpatient:: After my assessment, the patient will require hospitali zation for at least two midnights. This is because of the severity of symptoms shown, intensity of services needed, and/or the medical risk in this patient being treated as an outpatient. - InPatient: Physician Admission Certification:: needs antibiotics - . Bed Request Type: Regular Admitting Physician: Norma Kirk Patient Diagnosis: Pneumonia, Gallstone
[2018-07-10 19:56] LABS: ALB/GLOB RATIO 1.3 (1.0-2.1); ALBUMIN 4.7 g/dL (3.5-5.0)
[2018-07-10 20:12] LABS: PROTHROMBIN TIME 10.7 SECONDS (9.7-12.2)
[2018-07-10] MEDS ORDERED: Piperacillin/Tazobact 3.375 gm 100 ML IVPB STA (20:46)
[2018-07-10] MEDS ORDERED: Piperacillin/Tazobact 3.375 gm 100 ML IVPB ONE (21:27)
[2018-07-10] MEDS ORDERED: Vancomycin 1 GM 1 GM/250 ML BAG IVPB ONE (21:27)
[2018-07-10] MEDS ORDERED: Albuterol-Ipratrop 3 mg / 0.5 (3 ml) UD ONE (22:44)
[2018-07-10] MEDS ORDERED: Albuterol-Ipratrop 3 mg / 0.5 (3 ml) UD INH STA (22:56)
[2018-07-11] MEDS: Albuterol-Ipratrop 3 mg / 0.5 (3 ml) UD INH SCH ×4 (01:16→19:27)
[2018-07-11] MEDS: metroNIDAZOLE IV 500 mg/100 ml 500 MG/100 ML BAG IVPB SCH ×4 (01:17→22:22)
--- NOTE | 2018-07-11 03:59 | CP.PCM.CON ---
History of Present Illness - History of Present Illness History of Present Illness: General Surgery Consult for Dr. Loo Reason for consult: abdominal pain, cholelithiasis, hyperbilirubinemia 77M with PMH of CHF, ESRD on HD (TTS), gastritis presents to [facility] for abdominal pain. Patient was seen and evaluated on the telemetry liu. Patient states that he has had abdominal pain for two days. He reports to having similar pain in the past. He states that it began after eating. Denies fever/chills or vomiting. He reports nausea. He rates pain as moderate located in RUQ without radiation. Eating/drinking exacerbates symptoms but being NPO alleviates it. ABUS showed cholelithiasis. ROS negative unless otherwise stated above. PMH: Anemia, CHF, Diverticulitis (Diverticulosis by colonoscopy 10/2016), Gastritis, PUD, HTN, Hypercholesterolemia, ESRD on HD PSH: Appendectomy ALL: Calcium carbonate, dates Review of Systems - Review of Systems All systems: reviewed and no additional remarkable complaints except (as per HPI) Past Patient History - Infectious Disease Hx of Infectious Diseases: None - Past Medical History & Family History Past Medical History?: Yes - Past Social History Smoking Status: Never Smoked - CARDIAC Hx Cardiac Disorders: Yes Hx Congestive Heart Failure: Yes Hx Hypercholesterolemia: Yes Hx Hypertension: Yes - PULMONARY Hx Respiratory Disorders: Yes Hx Pneumonia: Yes - NEUROLOGICAL Hx Neurological Disorder: No - HEENT Hx HEENT Problems: No - RENAL Hx Chronic Kidney Disease: Yes Date of Last Dialysis Treatment: 07/10/18 Hx Renal Failure: Yes - ENDOCRINE/METABOLIC Hx Diabetes Mellitus Type 2: Yes - HEMATOLOGICAL/ONCOLOGICAL Hx Blood Disorders: Yes Hx Anemia: Yes Hx Human Immunodeficiency Virus (HIV): No - INTEGUMENTARY Hx Dermatological Problems: No - MUSCULOSKELETAL/RHEUMATOLOGICAL Hx Musculoskeletal Disorders: No Hx Falls: No - GASTROINTESTINAL Hx Gastrointestinal Disorders: Yes Hx Crohn's Disease: No Hx Diverticulitis: Yes (Diverticulosis by colonoscopy 10/2016) Hx Gall Bladder Disease: No Hx Gastritis: Yes Hx Pancreatitis: No - GENITOURINARY/GYNECOLOGICAL Hx Genitourinary Disorders: Yes (SEE COMMENT) - PSYCHIATRIC Hx Psychophysiologic Disorder: No Hx Substance Use: No - SURGICAL HISTORY Hx Surgeries: Yes Hx Appendectomy: Yes Hx Arteriovenous Shunt: Yes (left arm AV fistula) - ANESTHESIA Hx Anesthesia: Yes Hx Anesthesia Reactions: No Hx Malignant Hyperthermia: No Has any member of the family had a problem w/ anesthesia?: No Meds Allergies/Adverse Reactions: Allergies Allergy/AdvReac Type Severity Reaction Status Date / Time calcium carbonate [From Tums] Allergy Verified 07/10/18 18:23 dates Allergy Mild Uncoded 04/07/17 11:23 - Medications Medications: Current Medications Acetaminophen (Tylenol 325mg Tab) 2 mg PO Q4H PRN PRN Reason: Temperature Albuterol/Ipratropium (Duoneb 3 Mg/0.5 Mg (3 Ml) Ud) 3 ml INH RQ6 JENNY Last Admin: 07/11/18 01:16 Dose: 3 ml Allopurinol (Zyloprim) 100 mg PO DAILY JENNY Donepezil HCl (Aricept) 10 mg PO HS [facility] Last Admin: 07/11/18 01:16 Dose: 10 mg Finasteride (Proscar) 5 mg PO DAILY JENNY Furosemide (Lasix) 20 mg PO DAILY JENNY Hydralazine HCl (Apresoline) 25 mg PO DAILY [facility] Ceftriaxone Sodium 1 gm/ (Sodium Chloride) 100 mls @ 100 mls/hr IVPB DAILY JENNY; Protocol Metronidazole (Flagyl) 500 mg in 100 mls @ 100 mls/hr IVPB Q8H JENNY; Protocol Last Admin: 07/11/18 01:17 Dose: 100 mls/hr Multivitamins (Hexavitamin) 1 tab PO DAILY JENNY Pantoprazole Sodium (Protonix Ec Tab) 40 mg PO DAILY [facility] Sevelamer Carbonate (Renvela) 2.4 gm PO TIDCC JENNY Tamsulosin HCl (Flomax) 0.4 mg PO BID [facility] Last Admin: 07/11/18 01:16 Dose: 0.4 mg Physical Exam - Constitutional Appears: No Acute Distress - Head Exam Head Exam: ATRAUMATIC, NORMOCEPHALIC - Eye Exam Eye Exam: Normal appearance - ENT Exam ENT Exam: Mucous Membranes Moist - Respiratory Exam Respiratory Exam: NORMAL BREATHING PATTERN - Cardiovascular Exam Cardiovascular Exam: REGULAR RHYTHM - GI/Abdominal Exam GI & Abdominal Exam: Normal Bowel Sounds, Soft, Tenderness (RUQ). absent: Distended, Firm, Guarding, Hernia, Mass, Rebound, Rigid Additional comments: +Guevara's sign - Extremities Exam Extremities exam: Positive for: normal capillary refill, pedal pulses present - Back Exam Back exam: absent: CVA tenderness (L), CVA tenderness (R) - Neurological Exam Neurological exam: Alert, CN II-XII Intact, Oriented x3 - Psychiatric Exam Psychiatric exam: Normal Affect, Normal Mood - Skin Skin Exam: Dry, Intact, Warm Results - Vital Signs Recent Vital Signs: Last Vital Signs Temp 99.1 F 07/10/18 23:30 Pulse 100 H 07/10/18 23:30 Resp 23 07/11/18 02:39 BP 157/94 H 07/10/18 23:30 Pulse Ox 94 L 07/10/18 23:30 - Labs Result Diagrams: 07/11/18 07:07 07/11/18 07:07 Labs: Laboratory Results - last 24 hr 07/10/18 07/10/18 07/10/18 01:33 19:32 19:32 WBC 5.9 RBC 4.02 L Hgb 12.6 Hct 37.6 MCV 93.4 D MCH 31.4 H MCHC 33.6 RDW 15.6 H Plt Count 164 MPV 9.0 Neut % (Auto) 72.5 Lymph % (Auto) 18.3 L Toole % (Auto) 8.1 Eos % (Auto) 0.5 Baso % (Auto) 0.6 Neut # (Auto) 4.3 Lymph # (Auto) 1.1 Toole # (Auto) 0.5 Eos # (Auto) 0.0 Baso # (Auto) 0.0 ESR 70 H PT INR APTT Sodium 134 Potassium 4.8 Chloride 93 L Carbon Dioxide 27 Anion Gap 19 BUN 41 H Creatinine 4.5 H Est GFR ( Amer) 15 Est GFR (Non-Af Amer) 13 Random Glucose 149 H D Calcium 8.4 L Total Bilirubin 1.7 H Direct Bilirubin AST 89 H D ALT 13 L D Alkaline Phosphatase 123 C-Reactive Protein Total Protein 8.4 H Albumin 4.7 Globulin 3.6 Albumin/Globulin Ratio 1.3 Lipase 247 07/10/18 07/10/18 07/10/18 19:32 19:56 23:54 WBC RBC Hgb Hct MCV MCH MCHC RDW Plt Count MPV Neut % (Auto) Lymph % (Auto) Toole % (Auto) Eos % (Auto) Baso % (Auto) Neut # (Auto) Lymph # (Auto) Toole # (Auto) Eos # (Auto) Baso # (Auto) ESR PT 10.7 INR 1.0 APTT 30 Sodium Potassium Chloride Carbon Dioxide Anion Gap BUN Creatinine Est GFR ( Amer) Est GFR (Non-Af Amer) Random Glucose Calcium Total Bilirubin Direct Bilirubin 1.6 H AST ALT Alkaline Phosphatase C-Reactive Protein 19.70 H Total Protein Albumin Globulin Albumin/Globulin Ratio Lipase Assessment & Plan - Assessment and Plan (Free Text) Assessment: 77 M who presents with abdominal pain found to have cholelithiasis on ABUS Plan: -f/u HIDA -Trend Lfts -Pain control -Anti-emetics PRN -Medical management as per primary -Will plan for OR pending HIDA findings -Discussed with Dr. Eze Yang PGY2 - Date & Time Date: 07/11/18 Time: 03:59
[2018-07-11 07:29] LABS: BASO % 0.4 % (0.0-2.0); EOS % 0.8 % (0.0-4.0); LYMPH # 0.9 K/uL (1.0-4.3); LYMPH % 22.3 % (20.0-40.0); MEAN CELL VOLUME 94.4 fL (80.0-94.0); MEAN CORPUSCULAR HEMOGLOBIN 31.3 pg (27.0-31.0); MEAN CORPUSCULAR HGB CONC 33.2 g/dL (33.0-37.0); MONO # 0.5 K/uL (0.0-0.8); MONO % 11.5 % (0.0-10.0); NEUT # 2.7 K/uL (1.8-7.0); RBC 3.32 Mil/uL (4.40-5.90); RED CELL DISTRIBUTION WIDTH 15.1 % (11.5-14.5); WHITE BLOOD COUNT 4.2 K/uL (4.8-10.8)
[2018-07-11 07:47] LABS: HEMOGLOBIN 10.4 g/dL (12.0-18.0)
[2018-07-11 07:53] LABS: ALB/GLOB RATIO 1.3 (1.0-2.1); ALBUMIN 3.4 g/dL (3.5-5.0); CALCIUM 7.5 mg/dl (8.6-10.4)
[2018-07-11] MEDS: Sevelamer Carb 2.4 gm/Packet PO SCH ×3 (08:00→18:04)
[2018-07-11 08:12] LABS: HEPATITIS B SURFACE AG Negative (NEGATIVE)
[2018-07-11 08:18] LABS: HEPATITIS A IGM NEGATIVE (NEGATIVE); HEPATITIS B CORE AB NEGATIVE (NEGATIVE)
[2018-07-11 08:22] LABS: HEPATITIS C ANTIBODY NEGATIVE (NEGATIVE)
--- NOTE | 2018-07-11 10:24 | CP.PCM.PN ---
Subjective - Date & Time of Evaluation Date of Evaluation: 07/11/18 Time of Evaluation: 10:24 Objective - Vital Signs/Intake and Output Vital Signs (last 24 hours): Temp Pulse Resp BP Pulse Ox 98 F 101 H 20 145/81 96 07/11/18 07:00 07/11/18 07:00 07/11/18 07:00 07/11/18 07:00 07/11/18 07:00 Intake and Output: 07/11/18 07/11/18 06:59 18:59 Intake Total 200 Balance 200 - Medications Medications: Current Medications Acetaminophen (Tylenol 325mg Tab) 2 mg PO Q4H PRN PRN Reason: Temperature Albuterol/Ipratropium (Duoneb 3 Mg/0.5 Mg (3 Ml) Ud) 3 ml INH RQ6 JENNY Last Admin: 07/11/18 01:16 Dose: 3 ml Allopurinol (Zyloprim) 100 mg PO DAILY JENNY Donepezil HCl (Aricept) 10 mg PO HS JENNY Last Admin: 07/11/18 01:16 Dose: 10 mg Finasteride (Proscar) 5 mg PO DAILY JENNY Furosemide (Lasix) 20 mg PO DAILY JENNY Hydralazine HCl (Apresoline) 25 mg PO DAILY JENNY Ceftriaxone Sodium 1 gm/ (Sodium Chloride) 100 mls @ 100 mls/hr IVPB DAILY JENNY; Protocol Metronidazole (Flagyl) 500 mg in 100 mls @ 100 mls/hr IVPB Q8H JENNY; Protocol Last Admin: 07/11/18 06:36 Dose: 100 mls/hr Multivitamins (Hexavitamin) 1 tab PO DAILY JENNY Pantoprazole Sodium (Protonix Ec Tab) 40 mg PO DAILY JENNY Sevelamer Carbonate (Renvela) 2.4 gm PO TIDCC JENNY Tamsulosin HCl (Flomax) 0.4 mg PO BID JENNY Last Admin: 07/11/18 01:16 Dose: 0.4 mg - Labs Labs: 07/11/18 07:07 07/11/18 07:07 PT 10.7 SECONDS (9.7-12.2) 07/10/18 19:56 INR 1.0 07/10/18 19:56 APTT 30 SECONDS (21-34) 07/10/18 19:56
--- NOTE | 2018-07-11 10:54 | US ---
HISTORY: abd pain COMPARISON: CT abdomen and pelvis without contrast performed 04/07/17 TECHNIQUE: Sonographic evaluation of the abdomen. FINDINGS: Examination markedly limited by habitus. LIVER: Measures 13.8 cm in sagittal dimension. Echogenic liver may be seen in setting of hepatic parenchymal disease or fatty infiltration. No focal hepatic mass identified. The main portal vein appears patent with normal directional flow. No intrahepatic bile duct dilatation. GALLBLADDER: Gallstones. No gallbladder wall thickening. Negative sonographic Guevara's sign as assessed by the nitroglycerin nitrator operator batch. COMMON BILE DUCT: Measures 4 mm. PANCREAS: Not well visualized. RIGHT KIDNEY: Measures 8.1 x 3.2 x 3.1cm. Echogenic renal parenchyma. No obstructing calculus or hydronephrosis identified. LEFT KIDNEY: Measures 8.5 x 4.5 x 4.9cm. Echogenic renal parenchyma. No obstructing calculus or hydronephrosis identified. SPLEEN: Measures approximately 9.0 cm. AORTA: Limited views appear unremarkable. IVC: Limited views appear unremarkable. OTHER FINDINGS: None. IMPRESSION: Examination markedly limited. Cholelithiasis. Echogenic liver may be seen in setting of hepatic parenchymal disease or fatty infiltration. Bilateral echogenic renal parenchyma may be seen in setting of medical renal disease. Preliminary impression was provided by [employer].
--- NOTE | 2018-07-11 11:11 | RAD ---
Date of service: 07/10/2018 HISTORY: Abdominal pain COMPARISON: 03/22/2017 FINDINGS: LUNGS: The lungs are well inflated. There is ill-defined airspace disease in the right lower lobe. The left lung is clear. PLEURA: No pleural effusions or pneumothorax. CARDIOVASCULAR: The heart is normal in size. There are aortic atherosclerotic calcifications present. OSSEOUS STRUCTURES: Within normal limits for the patient's age. VISUALIZED UPPER ABDOMEN: Normal. OTHER FINDINGS: None. IMPRESSION: Ill-defined airspace disease in the right lower lobe may represent atelectasis or developing pneumonia. Follow-up is advised.
[2018-07-11] MEDS: Multiple Vitamins Tab PO SCH (11:22)
[2018-07-11] MEDS: Pantoprazole 40 mg EC Tab PO SCH (11:23)
[2018-07-11] MEDS ORDERED: Iohexol 240 (50 ml) PO ONE (12:45)
--- NOTE | 2018-07-11 13:16 | NM ---
Date of service: 07/11/2018 PROCEDURE: Nuclear Medicine Hepatobiliary Scan HISTORY: hyperbilirubinemia, abd pain, cholelithiasis COMPARISON: July 10, 2018. Abdominal ultrasound TECHNIQUE: 7.3 mCi of technetium 99m Mebrofenin was administered intravenously. Planar images of the abdomen were obtained at 5 min intervals to 60 mins. Delayed images were also obtained. FINDINGS: LIVER: Timely and mildly heterogeneous uptake. COMMON BILE DUCT: identified at 15 mins. GALLBLADDER: identified at 20 mins. SMALL BOWEL: Identified at 30 mins. IMPRESSION: Normal Hepatobiliary Scan. The cystic duct is patent.
--- NOTE | 2018-07-11 15:34 | CT ---
Date of service: 07/11/2018 PROCEDURE: CT Abdomen and Pelvis with Oral contrast. HISTORY: abd pain COMPARISON: Comparison is made to the previous study dated 04/07/2017 TECHNIQUE: Contiguous axial images of the abdomen and pelvis. Oral contrast was administered. No IV contrast given. Coronal and Sagittal reformats generated. Radiation dose: Total exam DLP = 1181.13 mGy-cm. This CT exam was performed using one or more of the following dose reduction techniques: Automated exposure control, adjustment of the mA and/or kV according to patient size, and/or use of iterative reconstruction technique. FINDINGS: LOWER THORAX: There is 2.1 centimeter soft tissue nodule/mass at the right lung base noted. LIVER: Unremarkable. No gross lesion or ductal dilatation. GALLBLADDER AND BILE DUCTS: Large gallstones are noted without evidence of acute cholecystitis PANCREAS: Unremarkable. No mass. No ductal dilatation. SPLEEN: Unremarkable. No splenomegaly. ADRENALS: Unremarkable. KIDNEYS AND URETERS: The kidneys are small in size. Again noted are foci of perinephric stranding bilaterally. No evidence of hydronephrosis. BLADDER: The urinary bladder is not distended therefore cannot be evaluated. REPRODUCTIVE: Unremarkable. APPENDIX: There is no evidence of appendicitis. BOWEL: Suspicious for cecal and ascending colon wall thickening. Correlate clinically for colitis. No evidence of high-grade bowel obstruction. PERITONEUM: Unremarkable. No fluid collection. No free air. LYMPH NODES: Unremarkable. No enlarged lymph nodes. VASCULATURE: Unremarkable. No aortic aneurysm. Diffuse foci of atherosclerotic calcification noted. BONES: No fracture or destructive lesion. OTHER FINDINGS: There is heterogeneous high density in the right abdominal rectus muscles likely represent rectus sheath hematoma. IMPRESSION: Findings suggestive of right rectus sheath hematoma. Please correlate clinically. Possible cecal and proximal ascending colon wall thickening versus incomplete distention. Correlate clinically for colitis. Gallstones without evidence of acute cholecystitis.
--- NOTE | 2018-07-11 19:49 | CP.PCM.CON ---
History of Present Illness - History of Present Illness History of Present Illness: pt is seen and examined, full consult is dictated #[id number] for hd in am Past Patient History - Infectious Disease Hx of Infectious Diseases: None - Past Medical History & Family History Past Medical History?: Yes - Past Social History Smoking Status: Never Smoked - CARDIAC Hx Cardiac Disorders: Yes Hx Congestive Heart Failure: Yes Hx Hypercholesterolemia: Yes Hx Hypertension: Yes - PULMONARY Hx Respiratory Disorders: Yes Hx Pneumonia: Yes - NEUROLOGICAL Hx Neurological Disorder: No - HEENT Hx HEENT Problems: No - RENAL Hx Chronic Kidney Disease: Yes Date of Last Dialysis Treatment: 07/10/18 Hx Renal Failure: Yes - ENDOCRINE/METABOLIC Hx Diabetes Mellitus Type 2: Yes - HEMATOLOGICAL/ONCOLOGICAL Hx Blood Disorders: Yes Hx Anemia: Yes Hx Human Immunodeficiency Virus (HIV): No - INTEGUMENTARY Hx Dermatological Problems: No - MUSCULOSKELETAL/RHEUMATOLOGICAL Hx Musculoskeletal Disorders: No Hx Falls: No - GASTROINTESTINAL Hx Gastrointestinal Disorders: Yes Hx Crohn's Disease: No Hx Diverticulitis: Yes (Diverticulosis by colonoscopy 10/2016) Hx Gall Bladder Disease: No Hx Gastritis: Yes Hx Pancreatitis: No - GENITOURINARY/GYNECOLOGICAL Hx Genitourinary Disorders: Yes (SEE COMMENT) - PSYCHIATRIC Hx Psychophysiologic Disorder: No Hx Substance Use: No - SURGICAL HISTORY Hx Surgeries: Yes Hx Appendectomy: Yes Hx Arteriovenous Shunt: Yes (left arm AV fistula) - ANESTHESIA Hx Anesthesia: Yes Hx Anesthesia Reactions: No Hx Malignant Hyperthermia: No Has any member of the family had a problem w/ anesthesia?: No Meds Allergies/Adverse Reactions: Allergies Allergy/AdvReac Type Severity Reaction Status Date / Time calcium carbonate [From Tums] Allergy Verified 07/10/18 18:23 dates Allergy Mild Uncoded 04/07/17 11:23 - Medications Medications: Current Medications Acetaminophen (Tylenol 325mg Tab) 2 mg PO Q4H PRN PRN Reason: Temperature Albuterol/Ipratropium (Duoneb 3 Mg/0.5 Mg (3 Ml) Ud) 3 ml INH RQ6 [facility] Last Admin: 07/11/18 19:27 Dose: 3 ml Allopurinol (Zyloprim) 100 mg PO DAILY [facility] Last Admin: 07/11/18 11:21 Dose: 100 mg Donepezil HCl (Aricept) 10 mg PO HS [facility] Last Admin: 07/11/18 01:16 Dose: 10 mg Finasteride (Proscar) 5 mg PO DAILY [facility] Last Admin: 07/11/18 11:21 Dose: 5 mg Furosemide (Lasix) 20 mg PO DAILY [facility] Last Admin: 07/11/18 11:23 Dose: 20 mg Hydralazine HCl (Apresoline) 25 mg PO DAILY [facility] Last Admin: 07/11/18 11:21 Dose: 25 mg Ceftriaxone Sodium 1 gm/ (Sodium Chloride) 100 mls @ 100 mls/hr IVPB DAILY [facility]; Protocol Last Admin: 07/11/18 11:20 Dose: 100 mls/hr Metronidazole (Flagyl) 500 mg in 100 mls @ 100 mls/hr IVPB Q8H [facility]; Protocol Last Admin: 07/11/18 15:53 Dose: 100 mls/hr Multivitamins (Hexavitamin) 1 tab PO DAILY [facility] Last Admin: 07/11/18 11:22 Dose: 1 tab Pantoprazole Sodium (Protonix Ec Tab) 40 mg PO DAILY [facility] Last Admin: 07/11/18 11:23 Dose: 40 mg Sevelamer Carbonate (Renvela) 2.4 gm PO TIDCC [facility] Last Admin: 07/11/18 18:04 Dose: 2.4 gm Tamsulosin HCl (Flomax) 0.4 mg PO BID [facility] Last Admin: 07/11/18 18:04 Dose: 0.4 mg Results - Vital Signs Recent Vital Signs: Last Vital Signs Temp 97.8 F 07/11/18 15:35 Pulse 86 07/11/18 15:35 Resp 20 07/11/18 15:35 BP 138/70 07/11/18 15:35 Pulse Ox 98 07/11/18 15:35 - Labs Result Diagrams: 07/11/18 07:07 07/11/18 07:07 Labs: Laboratory Results - last 24 hr 07/10/18 07/10/18 07/10/18 01:33 19:32 19:32 WBC RBC Hgb Hct MCV MCH MCHC RDW Plt Count MPV Neut % (Auto) Lymph % (Auto) [place] % (Auto) Eos % (Auto) Baso % (Auto) Neut # (Auto) Lymph # (Auto) [place] # (Auto) Eos # (Auto) Baso # (Auto) ESR 70 H PT INR APTT Sodium 134 Potassium 4.8 Chloride 93 L Carbon Dioxide 27 Anion Gap 19 BUN 41 H Creatinine 4.5 H Est GFR ( Amer) 15 Est GFR (Non-Af Amer) 13 Random Glucose 149 H D Calcium 8.4 L Phosphorus Magnesium Total Bilirubin 1.7 H Direct Bilirubin 1.6 H AST 89 H D ALT 13 L D Alkaline Phosphatase 123 C-Reactive Protein Total Protein 8.4 H Albumin 4.7 Globulin 3.6 Albumin/Globulin Ratio 1.3 Lipase 247 Hepatitis A IgM Ab Hep Bs Antigen Hep B Core IgM Ab Hepatitis C Antibody Influenza Typ A,B (EIA) 07/10/18 07/10/18 07/11/18 19:56 23:54 05:41 WBC RBC Hgb Hct MCV MCH MCHC RDW Plt Count MPV Neut % (Auto) Lymph % (Auto) [place] % (Auto) Eos % (Auto) Baso % (Auto) Neut # (Auto) Lymph # (Auto) [place] # (Auto) Eos # (Auto) Baso # (Auto) ESR PT 10.7 INR 1.0 APTT 30 Sodium Potassium Chloride Carbon Dioxide Anion Gap BUN Creatinine Est GFR ( Amer) Est GFR (Non-Af Amer) Random Glucose Calcium Phosphorus Magnesium Total Bilirubin Direct Bilirubin AST ALT Alkaline Phosphatase C-Reactive Protein 19.70 H Total Protein Albumin Globulin Albumin/Globulin Ratio Lipase Hepatitis A IgM Ab Hep Bs Antigen Hep B Core IgM Ab Hepatitis C Antibody Influenza Typ A,B (EIA) Negative for flu a/b 07/11/18 07/11/18 07/11/18 07:07 07:07 07:07 WBC 4.2 L RBC 3.32 L Hgb 10.4 L D Hct 31.3 L MCV 94.4 H MCH 31.3 H MCHC 33.2 RDW 15.1 H Plt Count 134 MPV 9.0 Neut % (Auto) 65.0 Lymph % (Auto) 22.3 Valley % (Auto) 11.5 H Eos % (Auto) 0.8 Baso % (Auto) 0.4 Neut # (Auto) 2.7 Lymph # (Auto) 0.9 L [place] # (Auto) 0.5 Eos # (Auto) 0.0 Baso # (Auto) 0.0 ESR PT INR APTT Sodium 134 Potassium 3.7 Chloride 95 L Carbon Dioxide 29 Anion Gap 14 BUN 53 H Creatinine 6.3 H Est GFR ( Amer) 10 Est GFR (Non-Af Amer) 9 Random Glucose 122 H Calcium 7.5 L Phosphorus 3.9 Magnesium 1.9 Total Bilirubin 0.5 Direct Bilirubin AST 43 ALT 29 Alkaline Phosphatase 104 C-Reactive Protein Total Protein 6.1 L Albumin 3.4 L D Globulin 2.6 Albumin/Globulin Ratio 1.3 Lipase Hepatitis A IgM Ab Negative Hep Bs Antigen Negative Hep B Core IgM Ab Negative Hepatitis C Antibody Negative Influenza Typ A,B (EIA)
[2018-07-12] MEDS: Albuterol-Ipratrop 3 mg / 0.5 (3 ml) UD INH SCH ×4 (02:17→19:58)
--- NOTE | 2018-07-12 04:44 | HP ---
CHIEF COMPLAINT: Cough with minimal whitish phlegm, right upper quadrant pain, adequate appetite, progressively getting worse over the past two days. HISTORY OF PRESENT ILLNESS: Mr. Cho is a 77-year-old male with past medical history of hypertension, end-stage renal disease, on hemodialysis, BPH, gout, dementia, arthritis, and anemia, who has been following up with Dr. Rigo Comer as primary care physician and Dr. Melo as Pulmonary, Dr. Emri Kirk as Production [employer], and Dr. Montoya as Urology, came into the emergency room with complaints of progressive worsening of cough and right upper quadrant pain for the past two days. I am covering for Dr. Rigo Comer as he is aware. History obtain from patient and the patient's over the phone. As per the patient, he has been having persistent cough with clear sputum production for which he was given promethazine and Mucinex but for five days ago, he has been taking it two days ago. After dialysis, he started noticing right upper quadrant pain and decreased appetite. He came into the outpatient hemodialysis center where he had dialysis and the patient has been complaining of right upper quadrant pain for which the patient was sent to the emergency room. In the emergency room, the patient had chest x-ray done, which was consistent with possible pneumonia versus atelectasis and right upper quadrant ultrasound of the abdomen shows gallstones and the patient has been admitted for further evaluation. When I examined the patient, the patient is still complaining of cough. Denies any headache or dizziness. Denies any fever. Denies any chest pain. Complaining of shortness of breath and wheezing. Denies any nausea or vomiting. Pain is 5-6/7, nonradiating, gets worse on cough. He claims that he has been having history of constipation and his bowel movements was about two days ago. Denies any other neurologic symptoms. All other systems reviewed and was found to be negative. PAST MEDICAL HISTORY: Hypertension, end-stage renal disease, gout, anemia, arthritis, BPH, and dementia. PAST SURGICAL HISTORY: Status post AV access, underwent appendectomy. FAMILY HISTORY: Nothing contributory to the present illness. SOCIAL HISTORY: He is an ex-smoker, smoked many years ago, very light smoker. Denies any alcohol or drug abuse. 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 ALLERGIES: HE IS ALLERGIC TO CALCIUM CARBONATE AND DATES. CURRENT MEDICATIONS: Include Tylenol as needed, Aricept 10 mg p.o. h.s., omeprazole 40 mg daily, Proscar one tab p.o. daily, allopurinol 100 mg daily, Flomax 0.4 mg p.o. b.i.d., multivitamin one tab daily, Lasix 20 mg daily, hydralazine 25 mg p.o. daily. REVIEW OF SYSTEMS: As described in history of present illness. All other systems reviewed and were found to be negative. PHYSICAL EXAMINATION: GENERAL: Elderly male, lying in bed, in no acute distress. VITAL SIGNS: Blood pressure 145/81, pulse 100, respirations 20, temperature 98 degrees Fahrenheit, O2 sat is 96% on room air. HEENT: Pupils equal, round and reacting to light and accommodation. Extraocular muscles intact. No icterus. No pallor. No oral thrush. No pharyngeal congestion. NECK: Supple. No JVD. LUNGS: Bilateral vesicular breath sounds. Bilateral wheezing present. No rhonchi heard. CARDIOVASCULAR SYSTEM: S1 and S2 present, regular. ABDOMEN: Soft. Bowel sounds present. There is right upper quadrant tenderness noted even to superficial touch in the right upper quadrant region. No rigidity noted. CENTRAL NERVOUS SYSTEM: Alert, awake, and oriented x3. No focal deficits noted. EXTREMITIES: No edema. Palpable peripheral pulses. LABORATORY DATA: Labs done from ED, WBC 5.9, hemoglobin 12.6, hematocrit 37.6, platelets 164. PT 10.7, INR 1.0, PTT 30. Sodium 134, potassium 4.8, chloride 93, bicarb 27, BUN 41, creatinine 4.5, glucose 149, calcium 8.4, total bilirubin 1.7, direct bilirubin 1.6, AST 89, alkaline phosphatase 123, ALT 13, C-reactive protein 19.7, total protein 8.4, albumin 4.7. Hepatitis serology negative. Influenza negative. Chest x-ray, questionable infiltrate in the right lower lobe. Abdominal ultrasound consistent with cholelithiasis. HIDA scan, preliminary report, negative for any acute cholecystitis. ASSESSMENT: Elderly male with history of hypertension, end-stage renal disease on hemodialysis, dementia, benign prostatic hypertrophy, gout, admitted for progressive worsening of cough and the right upper quadrant pain for the past two days. In the ED, the patient was found to having questionable infiltrate with wheezing and the patient is being admitted for further evaluation. 1. Right lower lobe questionable infiltrate versus atelectasis, rule out pneumonia. 2. Right upper quadrant pain with ultrasound cholelithiasis, rule out acute cholecystitis versus rule out other intraabdominal pathology. 3. Hypertension. 4. End-stage renal disease, on hemodialysis. 5. Gout, stable. 6. Benign prostatic hypertrophy, stable. 7. Dementia. PLAN: The patient is being admitted to medical floor. We will obtain official chest x-ray result. The patient received antibiotics in the ED, we will give Rocephin 1 g daily and Flagyl 500 mg IV every 8 hours. Pending the radiologic workup. Blood cultures and sputum culture. Surgical evaluation obtained. Renal consult requested. I will continue with his home medication. I will continue with nebulizer treatment. We will repeat labs. We will add further recommendation as his clinical course progresses. Norma Kirk MD
[2018-07-12] MEDS: metroNIDAZOLE IV 500 mg/100 ml 500 MG/100 ML BAG IVPB SCH ×2 (06:20→16:25)
--- NOTE | 2018-07-12 06:25 | CON ---
DATE: 07/11/2018 RENAL CONSULTATION LOCATION: The patient is located in room 657, bed A. REQUESTED BY: Norma Kirk MD REASON FOR RENAL CONSULTATION: Abdominal pain and end-stage renal disease with continuation of the hemodialysis. HISTORY OF PRESENT ILLNESS: Mr. Cho is a 77-year-old obese elderly male with a past medical history significant for diverticulitis, history of gastritis, gastrointestinal ulcer, hypertension, hyperlipidemia, end-stage renal disease, PE, on hemodialysis three times a week Monday, and Monday and was admitted with chief complaints of runny nose, cough from last week Monday. Denied any fever. Denies any expectoration. Complaints of dry cough only. Subsequently, the patient called office on Monday afternoon complaining of cough persistent and requesting cough suppressant and the patient was given Phenergan plain syrup and also Mucinex. Subsequently, the patient went for hemodialysis on Monday complaining of abdominal pain and his family brought the patient to the emergency room. The patient is complaining of midline abdominal pain. No nausea or vomiting. Denies any fever. Denies any urinary symptoms. No dizziness. No chest pain. No palpitation. PAST MEDICAL HISTORY: Significant for hypertension, BPH, recurrent UTI, gastritis, gastric ulcer, CHF, diverticulitis, and hyperlipidemia. PAST SURGICAL HISTORY: Status post appendectomy long time ago and also left upper extremity AV fistula. ALLERGIES: ALLERGIC TO CALCIUM CARBONATE, DATES. SOCIAL HISTORY: Denies any smoking, alcohol or drugs. PERSONAL HISTORY: He is . He has a very supportive and son who is in [place]. CURRENT MEDICATIONS: Include as follows; hydralazine 25 mg p.o. daily, Aricept 10 mg at bedtime, Rocephin 1 g daily, DuoNeb inhaler, Flagyl 500 mg IV every 8 hours, Flomax 0.4 mg p.o. b.i.d., multivitamin one tablet daily, Lasix 20 mg p.o. daily, Proscar 5 mg p.o. daily, Protonix 40 mg p.o. daily, Renvela 2.4 g p.o. t.i.d., Tylenol, Zemplar 2 mcg and allopurinol 100 mg p.o. daily. REVIEW OF SYSTEMS: Significant for cough and abdominal pain midline just above the umbilicus. All other review of systems are reviewed and are negative. PHYSICAL EXAMINATION: GENERAL: Mr. Cho is a 77-year-old obese elderly male well-built, well-nourished, not in distress. HEENT: Pupils normal and reactive to light and accommodation. Conjunctivae pink. Sclerae anicteric. Tongue is moist. Trachea is midline. LUNGS: Symmetric on both sides. Bilateral breath sounds present. Bilateral basal crackles present. CARDIOVASCULAR SYSTEM: [place] at the fifth intercostal space, midclavicular line. S1, S2 audible. No murmur or gallop. ABDOMEN: Protuberant. The patient has slight swelling in the midline, tenderness just above the umbilicus. Abdomen is soft. No guarding, no rigidity. Bowel sounds are present. CENTRAL NERVOUS SYSTEM: The patient is alert, awake, oriented x3. Nonfocal neuro examination. The patient is wheelchair-bound. Sensory system is within normal limits. Motor system, bilateral lower extremity weakness. EXTREMITIES: No cyanosis, no clubbing. No edema. LABORATORY DATA: Includes as follows as of 07/10/2018; WBC 5.9, hemoglobin 12.6, hematocrit 37.6, platelet 164. PT 10.7, INR is 1. PTT is 30. Sodium 134, potassium 4.8, chloride 93, CO2 of 27, BUN 41, creatinine 4.5. glucose 149, calcium 8.4. Total bilirubin 1.7, direct bilirubin 1.6, AST 89, ALT 13, alkaline phosphatase 123, total protein 8.4, albumin is 4.7. Other laboratory data; hepatitis A and IgM antibody is negative, hepatitis B surface antigen negative, core antibody IgM negative. Hep C antibodies negative. Influenza A and B antibodies negative. Other laboratory data; WBC 4.2, hemoglobin 10.4, hematocrit is 31.3, platelets 134. Sodium 134, potassium 3.7, chloride 95, CO2 of 29, BUN 53, creatinine 6.3, glucose 122, calcium is 7.5, phosphorus 3.9, magnesium 1.9. AST 43, ALT 29, alkaline phosphatase 104, total protein 6, albumin 3.4. Blood cultures x2 negative and sputum culture is pending. Other reports; ultrasound of the abdomen as of 07/10/2018; impression, examination moderately limited, cholelithiasis, echogenic may be seen in the setting of hepatic parenchymal disease, fatty infiltration, bilateral echogenic renal parenchyma may be seen in the setting of medical renal disease. Chest x-ray as of 07/10/2018; impression, ill-defined airspace disease in the right lower lobe may represent atelectasis or developing pneumonia. Followup is advised. HIDA scan as of 07/11/2018; impression, normal hepatobiliary scan. The cystic duct is patent. CT of the abdomen and pelvis as of 07/11/2018; impression, there is heterogeneous high density in right abdominal rectus muscle likely represent rectus sheath hematoma. Impression, findings suggestive of right rectus sheath hematoma. Please correlate clinically, possible cecal and proximal ascending colon wall thickening versus incomplete distension correlate clinically for colitis. Gallstones without evidence of acute cholecystitis. ASSESSMENT AND PLAN: Mr. Cho is a 77-year-old elderly obese male with a history of hypertension, benign prostatic hyperplasia, diverticulitis, history of pulmonary emboli in the past and end-stage renal disease on hemodialysis three times a week, Monday, , and Monday, was admitted with chief complaints of cough, runny nose last week and severe cough, presented yesterday with abdominal pain and the patient was found to have gallstones and HIDA scan negative and the CT abdomen is consistent with right rectus sheath muscle hematoma. 1. End-stage renal disease. Continue hemodialysis three times a week Monday, , Monday. 2. Hypertension. 3. Benign prostatic hyperplasia. Continue Flomax and continue intravenous antibiotics. As per primary team, Rocephin and Flagyl and we will try to schedule for hemodialysis in a.m. and try to ultrafiltrate as much as the patient can tolerate. Consider cough suppressant if needed. Continue all of his current medications Renvela and Zemplar. We will followup with you. Thank you for allowing me to participate in your patient's care. Emir Kirk MD
[2018-07-12] MEDS: Sevelamer Carb 2.4 gm/Packet PO SCH ×3 (08:30→17:29)
[2018-07-12] MEDS: Pantoprazole 40 mg EC Tab PO SCH (09:15)
[2018-07-12] MEDS: Multiple Vitamins Tab PO SCH (09:16)
[2018-07-12] MEDS ORDERED: Paricalcitol 2 mcg/ml Inj IV SCH (10:00)
--- NOTE | 2018-07-12 10:36 | CP.PCM.PN ---
Subjective - Date & Time of Evaluation Date of Evaluation: 07/12/18 Time of Evaluation: 10:36 - Subjective Subjective: Progress note dictated # [id number] Objective - Vital Signs/Intake and Output Vital Signs (last 24 hours): Temp Pulse Resp BP Pulse Ox 96.6 F L 92 H 20 189/83 H 96 07/12/18 09:55 07/12/18 10:25 07/12/18 10:10 07/12/18 10:25 07/12/18 10:10 Intake and Output: 07/12/18 07/12/18 06:59 18:59 Intake Total 200 Balance 200 - Medications Medications: Current Medications Acetaminophen (Tylenol 325mg Tab) 2 mg PO Q4H PRN PRN Reason: Temperature Albuterol/Ipratropium (Duoneb 3 Mg/0.5 Mg (3 Ml) Ud) 3 ml INH RQ6 [facility] Last Admin: 07/12/18 08:17 Dose: 3 ml Allopurinol (Zyloprim) 100 mg PO DAILY [facility] Last Admin: 07/12/18 09:15 Dose: 100 mg Donepezil HCl (Aricept) 10 mg PO HS [facility] Last Admin: 07/11/18 22:04 Dose: 10 mg Finasteride (Proscar) 5 mg PO DAILY [facility] Last Admin: 07/12/18 09:15 Dose: 5 mg Furosemide (Lasix) 20 mg PO DAILY [facility] Last Admin: 07/12/18 09:15 Dose: 20 mg Hydralazine HCl (Apresoline) 25 mg PO DAILY [facility] Last Admin: 07/12/18 09:16 Dose: 25 mg Ceftriaxone Sodium 1 gm/ (Sodium Chloride) 100 mls @ 100 mls/hr IVPB DAILY [facility]; Protocol Last Admin: 07/12/18 09:18 Dose: 100 mls/hr Metronidazole (Flagyl) 500 mg in 100 mls @ 100 mls/hr IVPB Q8H [facility]; Protocol Last Admin: 07/12/18 06:20 Dose: 100 mls/hr Lactobacillus Acidophilus (Lactobacillus) 1 cap PO BID [facility] Multivitamins (Hexavitamin) 1 tab PO DAILY [facility] Last Admin: 07/12/18 09:16 Dose: 1 tab Pantoprazole Sodium (Protonix Ec Tab) 40 mg PO DAILY [facility] Last Admin: 07/12/18 09:15 Dose: 40 mg Paricalcitol (Zemplar) 2 mcg IV TTS [facility] Sevelamer Carbonate (Renvela) 2.4 gm PO TIDCC [facility] Last Admin: 07/12/18 08:30 Dose: 2.4 gm Tamsulosin HCl (Flomax) 0.4 mg PO BID [facility] Last Admin: 07/12/18 09:16 Dose: 0.4 mg - Labs Labs: 07/11/18 07:07 07/11/18 07:07 PT 10.7 SECONDS (9.7-12.2) 07/10/18 19:56 INR 1.0 07/10/18 19:56 APTT 30 SECONDS (21-34) 07/10/18 19:56
[2018-07-12] MEDS: Lactobacillus Acidophilus 500 MU Cap PO SCH ×2 (11:00→17:29)
--- NOTE | 2018-07-12 15:23 | CP.PCM.PN ---
Subjective - Date & Time of Evaluation Date of Evaluation: 07/12/18 Time of Evaluation: 15:22 - Subjective Subjective: Pt is seen and examined, follow up consult is dictated #[id number] s/p hd today, had a uf 3.3 lit Objective - Vital Signs/Intake and Output Vital Signs (last 24 hours): Temp Pulse Resp BP Pulse Ox 96.6 F L 90 20 145/50 L 96 07/12/18 09:55 07/12/18 13:05 07/12/18 13:05 07/12/18 13:05 07/12/18 13:05 Intake and Output: 07/12/18 07/12/18 06:59 18:59 Intake Total 200 Balance 200 - Medications Medications: Current Medications Acetaminophen (Tylenol 325mg Tab) 2 mg PO Q4H PRN PRN Reason: Temperature Albuterol/Ipratropium (Duoneb 3 Mg/0.5 Mg (3 Ml) Ud) 3 ml INH RQ6 [facility] Last Admin: 07/12/18 14:26 Dose: 3 ml Allopurinol (Zyloprim) 100 mg PO DAILY [facility] Last Admin: 07/12/18 09:15 Dose: 100 mg Donepezil HCl (Aricept) 10 mg PO HS [facility] Last Admin: 07/11/18 22:04 Dose: 10 mg Finasteride (Proscar) 5 mg PO DAILY [facility] Last Admin: 07/12/18 09:15 Dose: 5 mg Furosemide (Lasix) 20 mg PO DAILY [facility] Last Admin: 07/12/18 09:15 Dose: 20 mg Hydralazine HCl (Apresoline) 25 mg PO DAILY [facility] Last Admin: 07/12/18 09:16 Dose: 25 mg Ceftriaxone Sodium 1 gm/ (Sodium Chloride) 100 mls @ 100 mls/hr IVPB DAILY [facility]; Protocol Last Admin: 07/12/18 09:18 Dose: 100 mls/hr Metronidazole (Flagyl) 500 mg in 100 mls @ 100 mls/hr IVPB Q8H [facility]; Protocol Last Admin: 07/12/18 06:20 Dose: 100 mls/hr Lactobacillus Acidophilus (Lactobacillus) 1 cap PO BID [facility] Last Admin: 07/12/18 11:00 Dose: Not Given Multivitamins (Hexavitamin) 1 tab PO DAILY [facility] Last Admin: 07/12/18 09:16 Dose: 1 tab Pantoprazole Sodium (Protonix Ec Tab) 40 mg PO DAILY [facility] Last Admin: 07/12/18 09:15 Dose: 40 mg Paricalcitol (Zemplar) 2 mcg IV TTS [facility] Sevelamer Carbonate (Renvela) 2.4 gm PO TIDCC [facility] Last Admin: 07/12/18 12:05 Dose: Not Given Tamsulosin HCl (Flomax) 0.4 mg PO BID [facility] Last Admin: 07/12/18 09:16 Dose: 0.4 mg - Labs Labs: 07/11/18 07:07 07/11/18 07:07 PT 10.7 SECONDS (9.7-12.2) 07/10/18 19:56 INR 1.0 07/10/18 19:56 APTT 30 SECONDS (21-34) 07/10/18 19:56
--- NOTE | 2018-07-12 16:30 | RAD ---
Date of service: 07/12/2018 HISTORY: Follow-up COMPARISON: 07/10/2018. TECHNIQUE: Chest PA and lateral FINDINGS: LINES AND TUBES: None. LUNG AND PLEURA: The lungs are well inflated and clear. No pleural effusion or pneumothorax. HEART AND MEDIASTINUM: There is moderate cardiomegaly. There are aortic atherosclerotic calcifications present. The hilar and mediastinal contours are within normal limits. SKELETAL STRUCTURES: The bony structures are within normal limits for the patient's age. VISUALIZED UPPER ABDOMEN: Normal. OTHER FINDINGS: None. IMPRESSION: No active pulmonary disease.
--- NOTE | 2018-07-12 22:18 | PN ---
DATE: 07/12/2018 SUBJECTIVE: The patient is seen and examined during hemodialysis. The patient still complains of cough, which is less severe than on admission. Abdominal pain is slightly better than yesterday. Denies any other new complaints. PHYSICAL EXAMINATION: GENERAL: Elderly male, lying in bed, in no acute distress. VITAL SIGNS: Blood pressure 138/68, pulse 107, respirations 20, temperature 97.7 degrees Fahrenheit, O2 sat is 97% on room air. HEENT: Pupils equal, round, and reacting to light and accommodation. Extraocular muscles intact. No icterus. No pallor. No oral thrush. No pharyngeal congestion. NECK: Supple. No JVD. LUNGS: Bilateral vesicular breath sounds. No wheezing. No rhonchi. CARDIOVASCULAR SYSTEM: S1 and S2 present, regular. ABDOMEN: Soft. There is tenderness on the right upper quadrant region. No rebound tenderness. Bowel sound are present. No guarding. No rigidity. CENTRAL NERVOUS SYSTEM: Alert, awake, and oriented x3. No focal deficits noted. EXTREMITIES: No edema. Palpable peripheral pulses. MEDICATIONS: Include Tylenol as needed, DuoNeb every 6 hours, Rocephin 1 g daily, Aricept 10 mg p.o. at bedtime, Proscar 5 mg daily, Lasix 20 mg daily, hydralazine 25 mg daily, Bacid one capsule daily, Flagyl 500 mg IV every 8 hours, multivitamin one tablet daily, Protonix 40 mg daily, Zemplar 2 mcg IV, Renvela 2.4 g p.o. t.i.d., and Flomax 0.4 mg b.i.d. LABORATORY DATA: No new labs. Blood cultures and sputum cultures are negative so far. Repeat chest x-ray today consistent with cardiomegaly. No active pulmonary disease. ASSESSMENT AND PLAN: Elderly male with history of hypertension; end-stage renal disease, on hemodialysis; gout; dementia; arthritis, anemia; benign prostatic hypertrophy. Admitted for right upper quadrant tenderness, cough. Chest x-ray questionable infiltrate. Repeat chest x-ray negative for any infiltrates. Cough is probably secondary to bronchitis and upper respiratory infection. CT of the abdomen and pelvis consistent with rectus sheath hematoma. The patient received hemodialysis today. We will discontinue Flagyl. Continue with prazosin. Tried calling the patient's regarding discharge planning. Left message to the . 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 We will continue with other current medications. We will discharge the patient home on Augmentin 500 mg daily for five days. We will continue with other current medications. Norma Kirk MD
[2018-07-13] MEDS: Albuterol-Ipratrop 3 mg / 0.5 (3 ml) UD INH SCH ×3 (01:24→14:24)
--- NOTE | 2018-07-13 02:15 | PN ---
DATE: 07/12/2018 FOLLOWUP RENAL CONSULTATION LOCATION: The patient is located in room 657, bed A. REQUESTED BY: Norma Kirk MD REASON FOR FOLLOWUP: End-stage renal disease, continuation of hemodialysis. SUBJECTIVE: Mr. Cho is a 77-year-old obese male with a history of hypertension, peptic ulcer disease, dementia, end-stage renal disease, history of PE in the past, was admitted with chief complaints of runny nose, cough for three, four days prior to the admission and also complaint of abdominal pain, and the patient was found to have a hematoma in the rectus muscle on the right side. The patient is feeling slightly better today, less pain. The patient underwent hemodialysis this afternoon and had ultrafiltration about 3.3 liters. Not in acute distress. Occasional cough. PHYSICAL EXAMINATION: VITAL SIGNS: As follows: Blood pressure this afternoon 138/68, pulse 107, respirations 22, temperature 97.7, saturation 97%. Height 5 feet, weight is 218 pounds. GENERAL: Mr. Cho is a 77-year-old obese male, well built, well nourished, not in distress. HEENT: Pupils normal, reactive to light and accommodation. Conjunctivae pink. Sclerae anicteric. Tongue is moist. Trachea is midline. LUNGS: Symmetric on both sides. Bilateral breath sounds present. Occasional basal crackles present. CARDIOVASCULAR SYSTEM: [place] at the fifth intercostal space, midclavicular line. S1, S2 audible. No murmur or gallop. ABDOMEN: Normal in appearance, soft, tympanitic. No guarding. No rigidity. No hepatosplenomegaly. The patient also has had mild abdominal pain in the midline, just above the umbilicus and a mass is felt secondary to recent hematoma into the rectus muscle. CENTRAL NERVOUS SYSTEM: The patient is alert, awake, oriented x3. Nonfocal neuro examination. Cranial nerves II-XII grossly intact. Sensory and motor system within normal limits. EXTREMITIES: No cyanosis, no clubbing, no edema. CURRENT MEDICATIONS: Include as follows: Hydralazine 25 mg p.o. daily, Aricept 10 mg at bedtime, Rocephin 1 g daily, DuoNeb inhaler, Flomax 0.4 mg b.i.d., multivitamin one tablet daily, lactobacillus one capsule b.i.d., Lasix 20 mg p.o. daily, Proscar 5 mg daily, Protonix 40 mg p.o. daily, Renvela 2.4 g p.o. t.i.d., Tylenol, and Zemplar, also allopurinol. LABORATORY DATA: Include as of 07/11/2018: H and H 10.4/31.3, platelets 134. Sodium 134, potassium 3.7, chloride 95, CO2 of 29, BUN 53, creatinine 6.3, glucose 122, calcium 7.5, and phosphorus 3.9. Total protein 6.1, albumin is 3.4. C-reactive protein 19.7. ASSESSMENT AND PLAN: In summary, Mr. Cho is a 77-year-old elderly male with hypertension, benign prostatic hyperplasia, end-stage renal disease, wheelchair-bound, was admitted with cough, runny nose and abdominal pain. The patient was found to have a hematoma into the rectus muscle spontaneous. 1. End-stage renal disease. Continue hemodialysis three times a week Monday, , Monday. The patient underwent dialysis today and ultrafiltration about 3.3 liters. 2. Hypertension. Continue hydralazine. 3. Benign prostatic hyperplasia. Continue Proscar and also Flomax. Continue all his current medications. The patient is stable from the renal standpoint for possible discharge after chest x-ray. Thank you for allowing me to participate in your patient's care. Emir Kirk MD
[2018-07-13 02:34] VITALS: RESP 20
[2018-07-13 08:00] VITALS: PULSE 87; TEMP 97.8
[2018-07-13] MEDS: Sevelamer Carb 2.4 gm/Packet PO SCH (08:00)
[2018-07-13] MEDS: Pantoprazole 40 mg EC Tab PO SCH (10:37)
[2018-07-13] MEDS: Lactobacillus Acidophilus 500 MU Cap PO SCH (10:37)
[2018-07-13] MEDS: Multiple Vitamins Tab PO SCH (10:38)
[2018-07-13 10:39] VITALS: BP 148/67
--- NOTE | 2018-07-13 16:58 | CP.PCM.DIS ---
Provider - Provider Date of Admission: 07/10/18 21:58 Attending physician: Norma Kirk MD Primary care physician: Dr. niki holland Consults: 07/10/18 23:06 General Surgery Consult Routine Comment: Consulting Provider: Dickson Loo Jr. Consulting Physician: Dickson Loo Jr. 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 holland) Hospital Course - Lab Results Lab Results: Micro Results 07/11/18 06:08 Sputum Gram Stain - Final 07/11/18 06:08 Sputum Sputum Culture - Final NORMAL ORAL CONNIE 07/10/18 21:45 Blood Blood Culture - Preliminary NO GROWTH AFTER 48 HOURS 07/10/18 21:15 Blood Blood Culture - Preliminary NO GROWTH AFTER 48 HOURS Most Recent Lab Values WBC 4.2 K/uL (4.8-10.8) L 07/11/18 07:07 RBC 3.32 Mil/uL (4.40-5.90) L 07/11/18 07:07 Hgb 10.4 g/dL (12.0-18.0) L D 07/11/18 07:07 Hct 31.3 % (35.0-51.0) L 07/11/18 07:07 MCV 94.4 fL (80.0-94.0) H 07/11/18 07:07 MCH 31.3 pg (27.0-31.0) H 07/11/18 07:07 MCHC 33.2 g/dL (33.0-37.0) 07/11/18 07:07 RDW 15.1 % (11.5-14.5) H 07/11/18 07:07 Plt Count 134 K/uL (130-400) 07/11/18 07:07 MPV 9.0 fL (7.2-11.7) 07/11/18 07:07 Neut % (Auto) 65.0 % (50.0-75.0) 07/11/18 07:07 Lymph % (Auto) 22.3 % (20.0-40.0) 07/11/18 07:07 Carbon % (Auto) 11.5 % (0.0-10.0) H 07/11/18 07:07 Eos % (Auto) 0.8 % (0.0-4.0) 07/11/18 07:07 Baso % (Auto) 0.4 % (0.0-2.0) 07/11/18 07:07 Neut # (Auto) 2.7 K/uL (1.8-7.0) 07/11/18 07:07 Lymph # (Auto) 0.9 K/uL (1.0-4.3) L 07/11/18 07:07 Carbon # (Auto) 0.5 K/uL (0.0-0.8) 07/11/18 07:07 Eos # (Auto) 0.0 K/uL (0.0-0.7) 07/11/18 07:07 Baso # (Auto) 0.0 K/uL (0.0-0.2) 07/11/18 07:07 ESR 70 mm/hr (0-15) H 07/10/18 01:33 PT 10.7 SECONDS (9.7-12.2) 07/10/18 19:56 INR 1.0 07/10/18 19:56 APTT 30 SECONDS (21-34) 07/10/18 19:56 Sodium 134 mmol/L (132-148) 07/11/18 07:07 Potassium 3.7 mmol/L (3.6-5.2) 07/11/18 07:07 Chloride 95 mmol/L (98-107) L 07/11/18 07:07 Carbon Dioxide 29 mmol/L (22-30) 07/11/18 07:07 Anion Gap 14 (10-20) 07/11/18 07:07 BUN 53 mg/dL (9-20) H 07/11/18 07:07 Creatinine 6.3 mg/dL (0.8-1.5) H 07/11/18 07:07 Est GFR ( Amer) 10 07/11/18 07:07 Est GFR (Non-Af Amer) 9 07/11/18 07:07 POC Glucose (mg/dL) 96 mg/dL (65-110) 07/13/18 06:14 Random Glucose 122 mg/dL (75-110) H 07/11/18 07:07 Calcium 7.5 mg/dl (8.6-10.4) L 07/11/18 07:07 Phosphorus 3.9 mg/dL (2.5-4.5) 07/11/18 07:07 Magnesium 1.9 mg/dL (1.6-2.3) 07/11/18 07:07 Total Bilirubin 0.5 mg/dL (0.2-1.3) 07/11/18 07:07 Direct Bilirubin 1.6 mg/dL (0.0-0.4) H 07/10/18 19:32 AST 43 U/L (17-59) 07/11/18 07:07 ALT 29 U/L (21-72) 07/11/18 07:07 Alkaline Phosphatase 104 U/L (38-126) 07/11/18 07:07 C-Reactive Protein 19.70 mg/L (0.0-9.9) H 07/10/18 23:54 Total Protein 6.1 g/dL (6.3-8.3) L 07/11/18 07:07 Albumin 3.4 g/dL (3.5-5.0) L D 07/11/18 07:07 Globulin 2.6 gm/dL (2.2-3.9) 07/11/18 07:07 Albumin/Globulin Ratio 1.3 (1.0-2.1) 07/11/18 07:07 Lipase 247 U/L (23-300) 07/10/18 19:32 Hepatitis A IgM Ab Negative (NEGATIVE) 07/11/18 07:07 Hep Bs Antigen Negative (NEGATIVE) 07/11/18 07:07 Hep B Core IgM Ab Negative (NEGATIVE) 07/11/18 07:07 Hepatitis C Antibody Negative (NEGATIVE) 07/11/18 07:07 Influenza Typ A,B (EIA) Negative for flu a/b (NEGATIVE) 07/11/18 05:41 Discharge Exam - Head Exam Head Exam: ATRAUMATIC, NORMOCEPHALIC Discharge Plan - Discharge Medications Prescriptions: Amoxicillin/Clavulanate [Augmentin 875 MG-125 MG] 1 tab PO BID #10 tab Saccharomyces Boulardi [Florastor] 250 mg PO BID #10 cap - Follow Up Plan Condition: GOOD Disposition: HOME/ ROUTINE Instructions: Saccharomyces boulardii, Dialysis Diet , Heart Failure, Adult (DC), Pneumonia, Adult (DC), Amoxicillin and Clavulanate, End Stage Kidney Disease (DC) Additional Instructions: AUGMENTIN 875 PO BID X5 DAYS FLORASTOR 1 BID [id number] FOLLOW UP WITH PMD IN 1 WEEK Referrals: Norma Kirk MD [Staff Provider] - Emir Kirk MD [Staff Provider] -
--- NOTE | 2018-07-14 07:08 | DS ---
LOCATION: The patient is located in room 657, bed A. The patient is seen and examined and dictated for Dr. Norma Kirk, covering Dr. Norma Kirk. ADMITTING DIAGNOSES: Hypertension, end-stage renal disease, abdominal pain, rule out acute cholecystitis and also right lower lobe atelectasis, infiltrates, rule out pneumonia. DISCHARGE DIAGNOSES: Hypertension, end-stage renal disease, hematoma of the rectus muscle, and right lower lobe atelectasis, cannot rule out pneumonia. HISTORY OF PRESENT ILLNESS: Mr. Cho is a 77-year-old elderly, obese male with a past medical history significant for anemia, CHF, diverticulitis, hypertension, hyperlipidemia, BPH, end-stage renal disease, history of PE, wheelchair-bound, who was admitted with chief complaints of runny nose, cough for 3 to 4 days prior to the admission, and suddenly, the patient developed pain in the abdomen for 2 days prior to the admission. Denies any fever. Denies any chest pain or palpitation. Denies any nausea, vomiting, or diarrhea. The patient was seen in the emergency room initially and underwent CAT scan and ultrasound of the abdomen consistent with cholelithiasis and CAT scan with contrast consistent with cholelithiasis and also a hematoma in the rectus muscle and HIDA scan was negative for acute cholecystitis. The patient was initially started on IV antibiotics for empiric new treatment for pneumonia and possible acute quique. The patient is feeling much better. Denies any headache or dizziness. Denies any chest pain or palpitation. Denies any fever or cough. Decreased pain in the anterior abdominal wall. PHYSICAL EXAMINATION: VITAL SIGNS: Blood pressure 148/67, pulse 87, respirations 20, temperature 97.8, saturation 95%. Height 5 feet and weight is 218 pounds. GENERAL: Mr. Cho is a 77-year-old elderly male, obese, moderately built, moderately nourished, not in distress. HEENT: Pupils normal and reactive to light and accommodation. Conjunctivae pink. Sclerae anicteric. Tongue is moist. Trachea is midline. LUNGS: Symmetric on both sides. Bilateral breath sounds present. Occasional basal crackles present. CARDIOVASCULAR SYSTEM: [place] at the fifth intercostal space, midclavicular line. S1, S2 audible. No murmur or gallop. ABDOMEN: Normal in appearance. Protuberant. Soft and mild tenderness just above the umbilicus and mass is palpable which is a hematoma in the rectus muscle, present on admission. No guarding. No rigidity. No hepatosplenomegaly. No abdominal bruit. CENTRAL NERVOUS SYSTEM: The patient is alert, awake and oriented x3. Nonfocal neuro examination. Sensory and motor system is grossly within normal limits. EXTREMITIES: No cyanosis, no clubbing, no edema. CURRENT MEDICATIONS: Include Aricept, omeprazole, Tylenol, Proscar, allopurinol, Flomax, multivitamin, Lasix, hydralazine, Florastor, Rocephin, and Flagyl. LABORATORY DATA: Includes as of 07/11/2018, WBC 4.2, hemoglobin 10.4, hematocrit is 31.3, platelets 134. Sodium 134, potassium 3.7, chloride 95, CO2 is 29, BUN 53, creatinine 6.3, glucose 122, calcium 7.5, phosphorus 3.9, and magnesium 1.9. Total bili 0.5, AST 43, ALT 29, alkaline phosphatase of 104. Total protein 6.1, albumin is 3.4. Other laboratory data, ultrasound of the abdomen as of 07/10/2018, no gallstones, no gallbladder wall thickening. Negative sonographic Guevara's sign as assessed by the environmental journalist. CBD 4 mm. Pancreas not well visualized. Biliary scan is negative and normal hepatobiliary scan. Cystic duct is patent. CT of the abdomen and pelvis as of 07/11/2018, findings suggestive for right rectus sheath hematoma, possible cecal and proximal ascending colon wall thickening versus incomplete distention, correlate clinically for colitis, gallstones without evidence of acute cholecystitis. Other reports, chest x-ray as of 07/12/2018, post dialysis, no active pulmonary disease. Chest x-ray as of 07/10/2018, on admission, ill defined air space disease in the right lower lobe, may represent atelectasis or developing pneumonia. Followup is advised In summary, Mr. Cho is a 77-year-old elderly male with a history of hypertension, end-stage renal disease, diverticulitis, gastritis, history of Clostridium difficile in the past and wheelchair-bound who was admitted with a cough, runny nose for 3 to 4 days prior to the admission and also sudden onset of abdominal pain for 1 to 2 days prior to the admission. The patient was found to have a rectus sheath hematoma on the right side, and also ill-defined infiltrates or atelectasis on the right lower lobe, on intravenous antibiotics, Flagyl and Rocephin, empirically treated for possible pneumonia or acute cholecystitis on admission. 1. End-stage renal disease. Continue hemodialysis three times a week, Monday, , Monday, outpatient hemodialysis at [facility]. The patient will go to hemodialysis unit on Monday as scheduled. 2. Hypertension. Blood pressure is stable. Continue his current medication, hydralazine. 3. Rectus sheath hematoma, most likely spontaneous secondary to severe cough. Continue his home medication, cough suppressant, Phenergan plain syrup, which was prescribed recently prior to the admission. 4. Right lower lobe atelectasis versus infiltrate. Repeat chest x-ray is improving. We will discontinue Rocephin, and we will give him Augmentin 875 mg 1 tablet by mouth 2 times daily for 5 days. Advised to follow up with Dr. Rigo Comer as an outpatient and continue all his home medications. Case discussed with the nurse practitioner in rounds. Emir Kirk MD
[2018-07-14 13:49] VITALS: O2SAT 99
== END 2018-07-13 16:26 | disposition home or self-care (01) | DRG 555 ==
LOC: C.ER 17:47 → C.6T 21:58
PROVIDERS: ADMIT Internal Medicine; ATTEND Internal Medicine
PROC: 5A1D70Z Performance of Urinary Filtration, Intermittent, Less than 6 Hours Per Day (ICD-10-PCS; principal; 2018-07-12)
DX: M79.81 Nontraumatic hematoma of soft tissue (principal); N18.6 End stage renal disease; J18.9 Pneumonia, unspecified organism; I13.2 Hypertensive heart and chronic kidney disease with heart failure and with stage 5 chronic kidney disease, or end stage renal disease; J98.11 Atelectasis; J06.9 Acute upper respiratory infection, unspecified; J40 Bronchitis, not specified as acute or chronic; K80.20 Calculus of gallbladder without cholecystitis without obstruction; E11.22 Type 2 diabetes mellitus with diabetic chronic kidney disease; E78.00 Pure hypercholesterolemia, unspecified; I50.9 Heart failure, unspecified; Z99.2 Dependence on renal dialysis; F03.90 Unspecified dementia, unspecified severity, without behavioral disturbance, psychotic disturbance, mood disturbance, and anxiety; E66.9 Obesity, unspecified; M10.9 Gout, unspecified; N40.0 Benign prostatic hyperplasia without lower urinary tract symptoms; Z99.3 Dependence on wheelchair; F17.210 Nicotine dependence, cigarettes, uncomplicated; Z86.711 Personal history of pulmonary embolism